=== PATIENT | female | born 1955 | race Caucasian/White ===

== ENCOUNTER 2023-11-25 15:21 | Inpatient (IN) | payer OTHER ==
[~2023-11-25] VITALS: Ht 167.6 cm; Wt 90.5 kg
[2023-11-25 16:14] LABS: Basophils # (auto) 0 10 ^3/uL (0-0.2); Basophils % (auto) 0.5 % (0.0-2.0); Eosinophils # (auto) 0.1 10 ^3/uL (0-0.8); Eosinophils % (auto) 0.9 % (0.0-7.0); Hematocrit 41.3 % (36.0-46.0); Lymphocytes # (auto) 1.6 10 ^3/uL (0.4-5.4); Lymphocytes % (auto) 20.9 % (10.0-50.0); Mean Corpuscular Volume 91.3 fL (80.0-100.0); Monocytes # (auto) 0.7 10 ^3/uL (0-1.3); Monocytes % (auto) 8.9 % (0.0-12.0); Neutrophils # (auto) 5.4 10 ^3/uL (1.6-8.6); Neutrophils % (auto) 68.8 % (37.0-80.0); Nucleated Red Blood Cells % 0.1 %; Red Blood Cells 4.53 10^6/uL (4.0-5.20); Red Cell Distribution Width 15.6 % (11.8-14.3); White Blood Cell 7.8 10^3/uL (4.4-10.8)
[2023-11-25] MEDS: HYDROcodone-ACET 5/325MG TAB PO ONE (16:25)
[2023-11-25 16:31] LABS: Alanine Aminotransferase 16 U/L (7-40); Albumin 4.2 g/dL (3.2-4.8); Alkaline Phosphatase 76 U/L (46-116); Anion Gap 8 (5-15); Aspartate Aminotransferase 20 U/L (13-40); BUN/Creatinine Ratio 23.7 (10.0-20.0); Blood Urea Nitrogen 27 mg/dL (9-23); Calcium 9.6 mg/dL (8.7-10.4); Carbon Dioxide 21 mmol/L (20-30); Chloride 113 mmol/L (98-107); Glucose 111 mg/dL (74-106); Lipase 44 U/L (12-53); Potassium 4.2 mmol/L (3.5-5.1); Sodium 142 mmol/L (136-145)
[2023-11-25 16:32] LABS: Bilirubin, Total 0.7 mg/dL (0.2-1.0); Total Protein 6.6 g/dL (5.7-8.2)
[2023-11-25 21:14] LABS: Urine Bacteria FEW /hpf (None Seen); Urine Blood TRACE /uL (Negative); Urine Clarity Turbid (Clear); Urine Color Yellow (Yellow); Urine Hyaline Cast MOD /lpf (0 - 2); Urine Mucus FEW (None Seen); Urine Protein, UAD TRACE (Negative); Urine Specific Gravity 1.025 (1.001-1.035); Urine Urobilinogen Normal (Negative); Urine WBC 150 /hpf (0 - 5)
[2023-11-25] MEDS ORDERED: DOCUSATE SOD 100 MG CAP PO PRN (22:15)
[2023-11-25] MEDS ORDERED: MORPHINE SULFATE INJ 2 MG/ml SYRG IV PRN ×2 (22:15→23:30)
[2023-11-25] MEDS ORDERED: ACETAMINOPHEN 325 MG TAB PO PRN (22:15)
[2023-11-25] MEDS ORDERED: ONDANSETRON HCL 4 MG/2 ML VIAL IV PRN (22:15)
[2023-11-25] MEDS: SULFAMETHOX W/TRIMETH(800/160MG) DS TAB PO ONE (22:31)
[2023-11-25] MEDS ORDERED: NITROGLYCERIN 0.4 MG SL TAB SL PRN (23:30)
[2023-11-25] MEDS: SOD CHL 0.45% 1,000 ML IV SCH (23:54)
[2023-11-26] VITALS (12 sets, daily range): BP systolic 125–156; BP diastolic 32–53; PULSE 38–89; RESP 16–20; TEMP 97.3–98.9; O2SAT 95–99
[2023-11-26] MEDS: HYDROcodone-ACET 5/325MG TAB PO PRN (02:55)
[2023-11-26 07:55] LABS: Basophils # (auto) 0 10 ^3/uL (0-0.2); Basophils % (auto) 0.2 % (0.0-2.0); Eosinophils # (auto) 0.1 10 ^3/uL (0-0.8); Eosinophils % (auto) 1.8 % (0.0-7.0); Hemoglobin 13.5 g/dL (12.2-16.2); Lymphocytes # (auto) 1.7 10 ^3/uL (0.4-5.4); Mean Corpuscular Hemoglobin 31.8 pg (28.0-32.0); Mean Corpuscular Hgb Conc. 34.7 g/dL (32.0-36.0); Mean Corpuscular Volume 91.6 fL (80.0-100.0); Monocytes # (auto) 0.9 10 ^3/uL (0-1.3); Monocytes % (auto) 13.7 % (0.0-12.0); Neutrophils # (auto) 3.6 10 ^3/uL (1.6-8.6); Neutrophils % (auto) 57.3 % (37.0-80.0); Nucleated Red Blood Cells % 0.1 %; Red Blood Cells 4.25 10^6/uL (4.0-5.20); Red Cell Distribution Width 15.1 % (11.8-14.3); White Blood Cell 6.2 10^3/uL (4.4-10.8)
[2023-11-26 08:13] LABS: Alanine Aminotransferase 13 U/L (7-40); Albumin 3.9 g/dL (3.2-4.8); Alkaline Phosphatase 65 U/L (46-116); Anion Gap 11 (5-15); Aspartate Aminotransferase 19 U/L (13-40); BUN/Creatinine Ratio 30.9 (10.0-20.0); Bilirubin, Total 0.4 mg/dL (0.2-1.0); Blood Urea Nitrogen 29 mg/dL (9-23); Calcium 9.2 mg/dL (8.7-10.4); Carbon Dioxide 19 mmol/L (20-30); Chloride 112 mmol/L (98-107); Glucose 95 mg/dL (74-106); Potassium 3.9 mmol/L (3.5-5.1); Sodium 142 mmol/L (136-145); Total Protein 5.7 g/dL (5.7-8.2)
[2023-11-26] MEDS: cefTRIAXone 1GM/50ML D5W 50 ML IV SCH (09:07)
[2023-11-26] MEDS ORDERED: FELO10TA28 PO (13:19)
[2023-11-27] VITALS (8 sets, daily range): BP systolic 122–157; BP diastolic 36–64; PULSE 41–58; RESP 16–20; TEMP 97.4–98; O2SAT 96–98
[2023-11-27] MEDS: ENOXAPARIN SOD 40 MG/0.4 ML SYRINGE SC SCH (08:55)
[2023-11-27 11:57] LABS: Triglycerides 152 mg/dL (< 150)
[2023-11-27 11:58] LABS: LDL Cholesterol 29 mg/dL (< 100)
[2023-11-27 11:59] LABS: Cholesterol 82 mg/dL (< 200); HDL Cholesterol 31 mg/dL (40-59)
[2023-11-28] VITALS (7 sets, daily range): BP systolic 123–191; BP diastolic 45–55; PULSE 42–58; RESP 16–20; TEMP 36.3; O2SAT 95–98
[2023-11-28] MEDS ORDERED: CEPH500C PO (14:56)
== END 2023-11-28 17:19 | disposition home or self-care (01) | DRG 640 ==
LOC: EDBD 15:21 → ER 15:21 → OVERFLOW 23:30 → UNDOADMIN 23:30 → OVERFLOW 11-26 01:18 → TELE 11-26 01:34 → TELE-WESTW 11-26 02:22
PROVIDERS: ADMIT Nurse Practitioner Family; ATTEND Internal Medicine Geriatric Medicine
DX: E86.0 Dehydration (principal); N17.0 Acute kidney failure with tubular necrosis; N39.0 Urinary tract infection, site not specified; G80.9 Cerebral palsy, unspecified; M54.16 Radiculopathy, lumbar region; N18.9 Chronic kidney disease, unspecified; G89.29 Other chronic pain; J45.909 Unspecified asthma, uncomplicated; E66.9 Obesity, unspecified; I36.1 Nonrheumatic tricuspid (valve) insufficiency; E78.5 Hyperlipidemia, unspecified; Z82.49 Family history of ischemic heart disease and other diseases of the circulatory system; Z88.2 Allergy status to sulfonamides; Z79.899 Other long term (current) drug therapy; Z68.32 Body mass index [BMI] 32.0-32.9, adult
CPT/HCPCS: 36415; 80053; 80061; 81001; 83605; 83690; 83880; 84443; 84484; 85025; 87086; 93005; 93306; G0378

== ENCOUNTER 2024-01-19 14:24 | Emergency (ER) | payer OTHER ==
[~2024-01-19] VITALS: Ht 167.6 cm; Wt 89.4 kg
[~2024-01-19 14:24] MED LIST: CEPH500C PO; FELO10TA28 PO
[2024-01-19 17:06] LABS: Chloride 109 mmol/L (98-107); Potassium 3.8 mmol/L (3.5-5.1); Sodium 143 mmol/L (136-145)
[2024-01-19 17:07] LABS: Anion Gap 8 (5-15); Calcium 10.1 mg/dL (8.7-10.4); Carbon Dioxide 26 mmol/L (20-30)
[2024-01-19 17:09] LABS: Basophils # (auto) 0 10 ^3/uL (0-0.2); Basophils % (auto) 0.4 % (0.0-2.0); Eosinophils # (auto) 0 10 ^3/uL (0-0.8); Eosinophils % (auto) 0.5 % (0.0-7.0); Hematocrit 43.9 % (36.0-46.0); Lymphocytes # (auto) 1.2 10 ^3/uL (0.4-5.4); Lymphocytes % (auto) 16.5 % (10.0-50.0); Mean Corpuscular Hgb Conc. 34.1 g/dL (32.0-36.0); Mean Corpuscular Volume 94.1 fL (80.0-100.0); Monocytes # (auto) 0.6 10 ^3/uL (0-1.3); Monocytes % (auto) 7.9 % (0.0-12.0); Neutrophils # (auto) 5.5 10 ^3/uL (1.6-8.6); Neutrophils % (auto) 74.7 % (37.0-80.0); Nucleated Red Blood Cells % 0.2 %; Platelet Count (auto) 185 10^3/uL (140-450); Red Blood Cells 4.67 10^6/uL (4.0-5.20); Red Cell Distribution Width 15.6 % (11.8-14.3); White Blood Cell 7.3 10^3/uL (4.4-10.8)
[2024-01-19 17:12] LABS: BUN/Creatinine Ratio 13.3 (10.0-20.0); Blood Urea Nitrogen 16 mg/dL (9-23); Glucose 109 mg/dL (74-106)
[2024-01-19] MEDS ORDERED: CYCL-838 PO (17:17)
[2024-01-19 17:26] LABS: INR 1.06 (0.9-1.15); Prothrombin Time 11.2 sec (9.3-11.8)
[2024-01-19 17:51] VITALS: BP 146/69; PULSE 63; RESP 18; TEMP 97.7; O2SAT 97
[2024-01-19] MEDS: HYDROcodone-ACET 10/325MG TAB PO ONE (17:51)
== END 2024-01-19 17:54 | disposition home or self-care (01) ==
LOC: EDBD 14:24 → ER 14:24
DX: M54.42 Lumbago with sciatica, left side (principal); M54.41 Lumbago with sciatica, right side; I89.0 Lymphedema, not elsewhere classified; Z79.899 Other long term (current) drug therapy; Z88.2 Allergy status to sulfonamides
CPT/HCPCS: 36415; 71045; 80048; 83880; 85025; 85610; 93005; 93970

== ENCOUNTER 2024-02-12 12:02 | Emergency (ER) | payer OTHER ==
[~2024-02-12] VITALS: Ht 167.6 cm; Wt 88.0 kg
[~2024-02-12 12:02] MED LIST changes: +CYCL-838 PO
[2024-02-12] MEDS: HYDROcodone-ACET 10/325MG TAB PO ONE (13:07)
[2024-02-12 14:14] LABS: Urine Bacteria FEW /hpf (None Seen); Urine Blood TRACE /uL (Negative); Urine Clarity Clear (Clear); Urine Color Yellow (Yellow); Urine Hyaline Cast MANY /lpf (0 - 2); Urine Mucus FEW (None Seen); Urine Protein, UAD 1+ (Negative); Urine Specific Gravity 1.027 (1.001-1.035); Urine Urobilinogen Normal (Negative); Urine WBC 25 /hpf (0 - 5); Urine pH 5.5 (5.0-9.0)
[2024-02-12] MEDS ORDERED: HYDR-4902 PO (15:13)
[2024-02-12] MEDS ORDERED: CIPR-173 PO (15:13)
[2024-02-12 15:20] VITALS: BP 122/45; PULSE 56; RESP 18; TEMP 98.2; O2SAT 96
== END 2024-02-12 15:23 | disposition home or self-care (01) ==
LOC: EDBD 12:02 → ER 12:08
DX: M54.41 Lumbago with sciatica, right side (principal); M54.42 Lumbago with sciatica, left side; N39.0 Urinary tract infection, site not specified; I11.0 Hypertensive heart disease with heart failure; I50.9 Heart failure, unspecified; Z88.2 Allergy status to sulfonamides
CPT/HCPCS: 72131; 81001

== ENCOUNTER 2024-02-20 16:41 | Inpatient (IN) | payer OTHER ==
[~2024-02-20] VITALS: Ht 167.6 cm; Wt 87.0 kg
[~2024-02-20 16:41] MED LIST changes: +CIPR-173 PO; +HYDR-4902 PO
[2024-02-20 17:43] LABS: Basophils # (auto) 0 10 ^3/uL (0-0.2); Basophils % (auto) 0.5 % (0.0-2.0); Eosinophils # (auto) 0.1 10 ^3/uL (0-0.8); Eosinophils % (auto) 2.3 % (0.0-7.0); Hematocrit 41.2 % (36.0-46.0); Hemoglobin 13.9 g/dL (12.2-16.2); Lymphocytes # (auto) 1.9 10 ^3/uL (0.4-5.4); Lymphocytes % (auto) 32.3 % (10.0-50.0); Mean Corpuscular Hgb Conc. 33.7 g/dL (32.0-36.0); Monocytes # (auto) 0.9 10 ^3/uL (0-1.3); Monocytes % (auto) 14.6 % (0.0-12.0); Neutrophils % (auto) 50.3 % (37.0-80.0); Nucleated Red Blood Cells % 0.1 %; Platelet Count (auto) 164 10^3/uL (140-450); Red Blood Cells 4.34 10^6/uL (4.0-5.20); Red Cell Distribution Width 15.1 % (11.8-14.3)
[2024-02-20] MEDS: KETOROLAC TROMETH 30 MG/ML 1ML VIAL IV ONE (17:43)
[2024-02-20 17:50] LABS: Chloride 110 mmol/L (98-107); Potassium 4.6 mmol/L (3.5-5.1); Sodium 140 mmol/L (136-145)
[2024-02-20 17:51] LABS: Anion Gap 7 (5-15); Calcium 9.3 mg/dL (8.7-10.4); Carbon Dioxide 23 mmol/L (20-31)
[2024-02-20 17:56] LABS: BUN/Creatinine Ratio 23.1 (10.0-20.0); Blood Urea Nitrogen 21 mg/dL (9-23); Glucose 111 mg/dL (74-106)
[2024-02-20] MEDS: HYDROcodone-ACET 10/325MG TAB PO ONE (20:01)
[2024-02-20 21:00] VITALS: PULSE 56; RESP 13; O2SAT 93
[2024-02-20] MEDS: diphenhdrAMINE HCL 50 MG/1 ML VL IM ONE (21:33)
[2024-02-20] MEDS: HALOPERIDOL LACTATE 5 MG/ML INJ VIAL IM ONE (21:33)
[2024-02-20] MEDS ORDERED: ONDANSETRON HCL 4 MG/2 ML VIAL IV PRN (22:00)
[2024-02-20] MEDS ORDERED: ACETAMINOPHEN 325 MG TAB PO PRN (22:00)
[2024-02-20] MEDS ORDERED: KETOROLAC TROMETH 30 MG/ML 1ML VIAL IV PRN (22:00)
[2024-02-20] MEDS ORDERED: hydrALAZINE HCL 20 MG/ML VL IV PRN (22:00)
[2024-02-20 22:45] LABS: Albumin 3.7 g/dL (3.2-4.8); Bilirubin, Direct 0.1 mg/dL (<0.3); Bilirubin, Total 0.4 mg/dL (0.2-1.0)
[2024-02-20 22:57] LABS: INR 1.07 (0.9-1.15); Partial Thromboplastin Time 26.6 SEC (24.5-34.5); Prothrombin Time 11.3 sec (9.3-11.8)
[2024-02-21 01:35] LABS: Amphetamine Screen, Urine Neg (NEGATIVE); Barbiturate Scree,Urine Neg (NEGATIVE); Benzodiazephine Screen, Urine Neg (NEGATIVE); Cannabinoid Screen, Urine Neg (NEGATIVE); Cocaine Screen, Urine Neg (NEGATIVE); Opiate Scree,Urine Neg (NEGATIVE); Phencyclidine Screen, Urine Neg (NEGATIVE)
[2024-02-21 06:00] VITALS: BP 140/70; PULSE 55; RESP 18; TEMP 98.2; O2SAT 96
[2024-02-21 06:25] VITALS: PULSE 55; RESP 18; O2SAT 96
[2024-02-21] MEDS ORDERED: ATOR40TA52 PO (07:08)
[2024-02-21 08:00] VITALS: PULSE 57; RESP 17; O2SAT 93
[2024-02-21 14:14] VITALS: TEMP 36.8
[2024-02-21 14:22] VITALS: TEMP 36.8
== END 2024-02-21 16:00 | disposition home or self-care (01) | DRG 552 ==
LOC: ER 16:41 → EDBD 16:41 → OVERFLOW 21:59 → TELE-EAST 02-21 05:40
PROVIDERS: ADMIT Student in an Organized Health Care Education/Training Program; ATTEND Internal Medicine Geriatric Medicine
DX: M51.369 Other intervertebral disc degeneration, lumbar region without mention of lumbar back pain or lower extremity pain (principal); I50.32 Chronic diastolic (congestive) heart failure; F11.20 Opioid dependence, uncomplicated; E66.9 Obesity, unspecified; I11.0 Hypertensive heart disease with heart failure; I89.0 Lymphedema, not elsewhere classified; R00.1 Bradycardia, unspecified; Z88.2 Allergy status to sulfonamides; Z68.31 Body mass index [BMI] 31.0-31.9, adult
CPT/HCPCS: 36415; 71045; 72100; 80048; 80076; 80307; 80320; 83036; 84484; 85025; 85610; 85730; 87081; 93005; 96374; 99291; G0378; J1885

== ENCOUNTER 2024-02-28 16:26 | Inpatient (IN) | payer OTHER ==
[~2024-02-28] VITALS: Ht 167.6 cm; Wt 84.6 kg
[~2024-02-28 16:26] MED LIST changes: +ATOR40TA52 PO; -CEPH500C PO; -CIPR-173 PO; -HYDR-4902 PO
--- NOTE | 2024-02-28 17:05 | ED.PDOC ---
HPI (NEURO) HPI Comments 68y F who presents to the ED via EMS for chief complaint of generalized weakness. Pt states she was at [employer] shopping and states she felt his generalized weakness with associated dizziness and sat down to help with her symptoms and states she continued to have dizziness and called EMS to the scene. EMS arrived on scene and states pt vitals were checked and states they were stable and pt was brought to the ED. Pt in the ED, has noted bilateral lower extremity swelling and pt states she has history of chronic lymphedema. Pt otherwise denies chest pain, shortness of breath, headache, fever, cough, nausea, vomiting, or diarrhea. Pt otherwise is alert and oriented x 4 and able to answer all questions. Pt states she was at [facility] last Monday and states he was hospitalized for bradycardia. Pt denies any other symptoms at this time. Chief Complaint: Dizziness Time Seen by MD: 17:02 Primary Care Provider: LESVIA Nair Notes: Medications, Allergies Information Source: Patient, Emergency Med Personnel Mode of Arrival: EMS Brought in by: EMS Past Medical History PAST MEDICAL HISTORY: CHF, High Lipids, HTN Past Medical History (Other): chronic lymphedema Surgical History: Denies all surgeries DOCUMENT PROCESSING SPECIALIST History: No Pertinent DOCUMENT PROCESSING SPECIALIST History Family History Family History: Reviewed,noncontributory to illness, No family hx of Cancer, No family hx of DM, No family hx of Heart asya, No family hx of HTN, No family hx ofKidney asya, No family hx of Liver asya, No family hx of Lung asya, No family hx of Stroke Social History Smoker: Non-Smoker Alcohol: Denies ETOH Use Drugs: Denies Drug Use Lives In: Home Constitutional: reports: malaise, weakness; denies: chills, diaphoresis, fatigue, fever, sweats, others EENTM: denies: blurred vision, double vision, ear bleeding, ear discharge, ear drainage, ear pain, ear ringing, eye pain, eye redness, hearing loss, mouth pain, mouth swelling, nasal discharge, nose bleeding, nose congestion, nose pain, photophobia, tearing, throat pain, throat swelling, voice changes, others Respiratory: denies: cough, hemoptysis, orthopnea, SOB at rest, shortness of breath, SOB with excertion, stridor, wheezing, others Cardiovascular: denies: chest pain, dizzy spells, diaphoresis, Dyspnea on exertion, edema, irregular heart beat, left arm pain, lightheadedness, palpitations, PND, syncope, others Gastrointestinal: denies: abdomen distended, abdominal pain, blood streaked bowels, constipated, diarrhea, dysphagia, difficulty swallowing, hematemesis, melena, nausea, poor appetite, poor fluid intake, rectal bleeding, rectal pain, vomiting, others Genitourinary: denies: abnormal vagina bleeding, burning, dyspareunia, dysuria, flank pain, frequency, hematuria, incontinence, pain, , vagina discharge, urgency, others Neurological: reports: dizziness, weakness; denies: fainting, headache, left sided numbness, left sided weakness, numbness, paresthesia, pre-existing deficit, right sided numbness, right sided weakness, seizure, speech problems, tingling, tremors, others Musculoskeletal: denies: back pain, gout, joint pain, joint swelling, muscle pain, muscle stiffness, neck pain, others Integumetry: denies: bruises, change in color, change in hair/nails, dryness, laceration, lesions, lumps, rash, wounds, others Allergic/Immunocompromised: denies: Difficulty Healing, Frequent Infections, Hives, Itching, others Hematologic/Lymphatic: denies: anemia, blood clots, easy bleeding, easy bruising, swollen glands, others Endocrine: denies: excessive hunger, excessive sweating, excessive thirst, excessive urination, flushing, intolerance to cold, intolerance to heat, unexplained weight gain, unexplained weight loss, others Psychiatric: denies: anxiety, bipolar disorder, depression, hopeless, panic disorder, schizophrenia, sleepless, suicidal, others All Other Systems: Reviewed and Negative Physical Exam General Appearance: Moderate Distress HEENT: Normal ENT Inspection, Pharynx Normal, TMs Normal Neck: Full Range of Motion, Non-Tender, Normal, Normal Inspection Respiratory: Chest Non-Tender, Lungs Clear, No Accessory Muscle Use, No Respiratory Distress, Normal Breath Sounds Cardiovascular: No Edema, No JVD, No Murmur, No Gallop, Normal Peripheral Pulses, Regular Rate/Rhythm Breast Exam: Deferred Gastrointestinal: No Organomegaly, Non Tender, No Pulsatile Mass, Normal Bowel Sounds, Soft Genitalia: Deferred Pelvic: Deferred Rectal: Deferred Extremities: Pedal edema, Swelling (Data lower extremity) Musculoskeletal : Apperance: Normal Neurologic: Alert, industrial gas production operator II-XII nml as Tested, No Motor Deficits, Normal Affect, Normal Mood, No Sensory Deficits Cerebellar Function: NOT DONE Reflexes: NOT DONE Skin: Dry, Normal Color, Warm Peripheral Pulses: 3+ Radial (R), 3+ Radial (L) Lymphatic: No Adenopathy Was a procedure done? Was a procedure done?: No Differential Diagnosis (SZ) Seizure: Psychogenic Seizure, Closed Head Injury, CVA/TIA General Weakness: Anemia, Dehydration, Electrolyte imbalance, Encephalopathy, Hypoglycemia, Hypotension, Hypovolemia, Pulmonary embolus, TIA, Vertigo: central, Vertigo: peripheral, Vestibular neuronitis, Other (UTI, chronic lymphedema, CHF exacerbation) Headache: Closed Head Injury X-Ray, Labs, Meds, VS Vital Signs Date Time Temp Pulse Resp B/P (MAP) Pulse Ox O2 Delivery O2 Flow Rate FiO2 02/28/24 16:36 62 02/28/24 16:33 97.9 64 16 112/59 (76) 98 Patient alert. Bilateral lower extremity swelling. Vitals stable. Answering all questions. Was recently at this hospital. Reviewed her previous visit. Explained to the patient. Continue property assessment monitor. Time of 1ST Reevaluation: 17:35 Reevaluation 1ST: Unchanged Patient Education/Counseling: Diagnosis, Treatment Family Education/Counseling: No Family Present Departure 1 Departure Time of Disposition: 17:31 Impression: Primary Impression: Autonomic disorder Additional Impressions: Lymphedema [id number] kidney injury Qualified Codes: N17.9 - Acute kidney failure, unspecified; N18.9 - Chronic kidney disease, unspecified Disposition: ADMITTED INPATIENT Admit to: Med Surg Condition: Guarded Critical Care Note Critical Care Time?: Yes (35 min-critical care time only) Stability Stability form required: No Heart Score Heart Score: Heart Score Response (Comments) Value History Slightly Suspicious 0 EKG Normal 0 Age >65 2 Risk Factors >3 or Hx ASHD 2 Troponin Normal limit 0 Total 4 I personally scribed for SHAGGY DEVRIES MD ([email or web address]) on 02/28/24 at 17:05. Electronically submitted by Levy Leon ([email or web address]). SHAGGY DEVRIES MD Feb 28, 2024 17:05
[2024-02-28 17:42] VITALS: PULSE 58; RESP 12; O2SAT 99
[2024-02-28 18:16] LABS: Basophils # (auto) 0 10 ^3/uL (0-0.2); Basophils % (auto) 0.3 % (0.0-2.0); Eosinophils # (auto) 0.1 10 ^3/uL (0-0.8); Eosinophils % (auto) 1.1 % (0.0-7.0); Hematocrit 42.9 % (36.0-46.0); Hemoglobin 14.6 g/dL (12.2-16.2); Lymphocytes # (auto) 1.2 10 ^3/uL (0.4-5.4); Lymphocytes % (auto) 20.4 % (10.0-50.0); Mean Corpuscular Hemoglobin 32.2 pg (28.0-32.0); Mean Corpuscular Volume 94.9 fL (80.0-100.0); Monocytes # (auto) 0.7 10 ^3/uL (0-1.3); Neutrophils % (auto) 66.2 % (37.0-80.0); Nucleated Red Blood Cells % 0.3 %; Platelet Count (auto) 151 10^3/uL (140-450); Red Blood Cells 4.52 10^6/uL (4.0-5.20); Red Cell Distribution Width 14.3 % (11.8-14.3); White Blood Cell 6.1 10^3/uL (4.4-10.8)
[2024-02-28 18:22] LABS: Chloride 108 mmol/L (98-107); Potassium 4.1 mmol/L (3.5-5.1); Sodium 141 mmol/L (136-145)
[2024-02-28 18:23] LABS: Anion Gap 8 (5-15); Calcium 9.6 mg/dL (8.7-10.4); Carbon Dioxide 25 mmol/L (20-31)
[2024-02-28 18:28] LABS: BUN/Creatinine Ratio 25.3 (10.0-20.0); Blood Urea Nitrogen 23 mg/dL (9-23); Glucose 99 mg/dL (74-106)
--- NOTE | 2024-02-28 18:47 | ECG ---
[facility] Test Date: 2024-02-28 Test Time: 16:35:19 Pat Name: NASIR ROSARIO Department: ED Room: [facility] Gender: F [employer] Sp[employer]: [place] : 1955 Requested By: SHAGGY DEVRIES Order Number: [id number] Reading MD: Mayank Vidales Measurements Intervals [place] Rate: 62 P: 25 FL: 117 QRS: 31 QRSD: 92 T: 63 QT: 407 QTc: 414 Interpretive Statements Sinus rhythm Borderline short FL interval ST elevation, consider inferior injury Electronically Signed On 02-29-2024 13:16:53 PDT by Mayank Vidales Please click the below link to view image of tracing.
[2024-02-28 19:50] VITALS: PULSE 56; RESP 12; O2SAT 99
--- NOTE | 2024-02-28 21:02 | DVH ---
CLINICAL HISTORY: dizzy TECHNIQUE: Helical imaging carried out from skull base to vertex without intravenous contrast. This e xam was performed according to our departmental dose optimization program. Up-to-date CT equipment an d radiation dose reduction techniques are utilized as appropriate. WID: COMPARISON: None FINDINGS: The ventricles and subarachnoid spaces are normal in size and configuration for patient age. There i s no midline shift or mass effect. The felix white matter interfaces are maintained. The basal cistern s are patent. There is no evidence of acute intracranial hemorrhage or extra-axial fluid collection. The mastoid air cells are well-aerated. There is mild paranasal sinus mucosal thickening. IMPRESSION: 1. No acute intracranial abnormality. 2. Mild paranasal sinus mucosal thickening, likely inflammatory.
[2024-02-28] MEDS ORDERED: MORPHINE SULFATE INJ 2 MG/ml SYRG IV PRN (21:30)
[2024-02-28] MEDS ORDERED: ONDANSETRON HCL 4 MG/2 ML VIAL IV PRN (21:30)
[2024-02-28] MEDS ORDERED: NITROGLYCERIN 0.4 MG SL TAB SL PRN (21:30)
[2024-02-28] MEDS: SODIUM CHLOR 0.9% PF (SALINE LOCK) 10ML VIAL/SYR IV SCH (22:15)
[2024-02-28] MEDS: ENOXAPARIN SOD 40 MG/0.4 ML SYRINGE SC SCH (22:16)
[2024-02-29] MEDS ORDERED: CYCLOBENZAPRINE HCL 7.5 MG PO PRN (01:00)
--- NOTE | 2024-02-29 01:00 | DVHHPRES ---
History of Present Illness Resident Creating Document: MARTINEZ POLLARD RESIDENT History of Present Illness Queenie Cheng is a 68 years old female with a PMH of HTN, CHF, HLD, back pain with sciatica presented to the ED with the chief complaints of intermittent generalized weakness since 4 days prior to admission. Patient reported she has been having hard time in walking since 4 days and she does reported 1 episode of fever on Monday and dry cough x4 days. Patient reported mild dizziness and weakness more or left side in the noon on the day of admission which prompted her to visit ED. on my assessment patient denies nausea, vomiting, abdominal pain, chest pain, palpitations, diarrhea, constipation and other acute symptoms. Past Medical History HTN, back pain with sciatica, CHF, chronic lymphedema Past Surgical History Denies Family History Heart disease and a gallbladder cancer in mother, mi in father Past Social History Lives with . Denies smoking, alcohol and other drug abuse Review of Systems Constitutional: Yes: Weakness Eyes: No: Pain, Vision change, Conjunctivae inflammation, Eyelid inflammation, Other, Redness ENT: No: Ear pain, Ear discharge, Nose pain, Nose discharge, Nose congestion, Mouth pain, Mouth swelling, Throat pain, Throat swelling, Other Respiratory: Cough, Dry Cardiovascular: No: Chest Pain, Palpitations, Orthopnea, Paroxysmal Noc. Dyspnea, Edema, Lt Headedness, Other Gastrointestinal: No: Nausea, Vomiting, Abdominal Pain, Diarrhea, Constipation, Melena, Hematochezia, Other Genitourinary: No Dysuria, No Frequency, No Incontinence, No Hematuria, No Retention, No Other Musculoskeletal: No: other, neck pain, shoulder pain, arm pain, back pain, hand pain, leg pain, foot pain Skin: No: Rash, Lesions, Jaundice, Bruising, Other Neurological: Weakness (generalized) Allergies: Coded Allergies: Sulfa Antibiotics (Verified Allergy, Unknown, 11/25/23) Medications Current Medications Medications Dose Ordered Sig/Alfonso Route Start Time Stop Time Status Last Admin Dose Admin Sodium Chloride 10 ml Q8HR IV 02/28/24 22:00 02/28/24 22:15 10 ML Acetaminophen 325 mg Q4HP PRN PO 02/28/24 21:30 Ondansetron HCl 4 mg Q4HP PRN IV 02/28/24 21:30 Enoxaparin Sodium 40 mg DAILY SC 02/28/24 21:30 02/28/24 22:16 40 MG Nitroglycerin 0.4 mg Q5MINP PRN SL 02/28/24 21:30 Morphine Sulfate 2 mg Q30M PRN IV 02/28/24 21:30 Exam Vital Signs Vital Signs Date Time Temp Pulse Resp B/P (MAP) Pulse Ox O2 Delivery O2 Flow Rate FiO2 02/28/24 22:00 13 138/56 (83) 96 02/28/24 20:00 59 02/28/24 19:50 98.1 98.1 02/28/24 19:50 Room Air* 0 21 General Appearance: Alert, Oriented X3, Cooperative, No acute distress HEENT: Atraumatic, PERRLA, EOMI, Mucous membr. moist/pink Respiratory: Clear to auscultation, Normal air movement Cardiovascular: Regular rate, Normal S1, Normal S2, No murmurs Abdominal: Normal bowel sounds, Soft, No tenderness, No hepatospenomegaly Extremities: No clubbing, No cyanosis, Normal pulses, Other (Bilateral pitting edema and lymphedema) Skin: No rashes, No breakdown, No significant lesion Neuro: Normal gait, Normal speech, Normal tone, Sensation intact Psych/Mental Status: Mental status NL, Mood NL Labs/Xrays Labs Test 02/28/24 17:50 Range/Units White Blood Count 6.1 4.4-10.8 10^3/uL Red Blood Count 4.52 4.0-5.20 10^6/uL Hemoglobin 14.6 12.2-16.2 g/dL Hematocrit 42.9 36.0-46.0 % Mean Corpuscular Volume 94.9 80.0-100.0 fL Mean Corpuscular Hemoglobin 32.2 H 28.0-32.0 pg Mean Corpuscular Hemoglobin Concent 34.0 32.0-36.0 g/dL Red Cell Distribution Width 14.3 11.8-14.3 % Platelet Count 151 140-450 10^3/uL Mean Platelet Volume 11.2 H 6.9-10.8 fL Neutrophils (%) (Auto) 66.2 37.0-80.0 % Lymphocytes (%) (Auto) 20.4 10.0-50.0 % Monocytes (%) (Auto) 12.0 0.0-12.0 % Eosinophils (%) (Auto) 1.1 0.0-7.0 % Basophils (%) (Auto) 0.3 0.0-2.0 % Neutrophils # (Auto) 4.0 1.6-8.6 10 ^3/uL Lymphocytes # (Auto) 1.2 0.4-5.4 10 ^3/uL Monocytes # (Auto) 0.7 0-1.3 10 ^3/uL Eosinophils # (Auto) 0.1 0-0.8 10 ^3/uL Basophils # (Auto) 0 0-0.2 10 ^3/uL Nucleated Red Blood Cells 0.3 % Sodium Level 141 136-145 mmol/L Potassium Level 4.1 3.5-5.1 mmol/L Chloride Level 108 H 98-107 mmol/L Carbon Dioxide Level 25 20-31 mmol/L Anion Gap 8 5-15 Blood Urea Nitrogen 23 9-23 mg/dL Creatinine 0.91 0.550-1.02 mg/dL Glomerular Filtration Rate Calc 68 >90 mL/min BUN/Creatinine Ratio 25.3 H 10.0-20.0 Serum Glucose 99 74-106 mg/dL Calcium Level 9.6 8.7-10.4 mg/dL Troponin I High Sensitivity 7 </=34 ng/L B-Type Natriuretic Peptide 36.18 0-100 pg/mL Assessment/Plan Assessment/Plan # Generalized weakness ?TIA # Dizziness ? presyncope -head CT showed no acute intracranial abnormalities -ordered carotid Doppler -monitor for symptoms # Ruleout COVID 19 and Influenza -Ordered rapid test # chronic back pain with sciatic -continue home meds # CHF not in exacerbation -ordered echocardiogram # hyperlipidemia -continue Lipitor # hypertension -monitor blood pressure -continue home meds Lovenox for VTE ppx No GIB PPX Cardiac Diet for now Reconciled home meds Goals of care discussed with the patient for more than 27 minutes: Full code status Case management discussed with Dr. Brewer, patient and nurse Plan discussed with: Patient, Other (nurse) My Orders Orders - MARTINEZ POLLARD RESIDENT Procedure Category Date Status Time Admit ADMIT 02/28/24 Transmitted 21:22 Allergies REX 02/28/24 In Process 21:22 Code Status CODE 02/28/24 Transmitted 21:22 Sodium Chloride Lock PHA 02/28/24 In Process (Saline Lock Ns) 22:00 Acetaminophen Tablet PHA 02/28/24 In Process (Tylenol Tablet) 21:30 Ondansetron Hcl PHA 02/28/24 In Process (Zofran) 21:30 Complete Blood Count LAB 02/29/24 Logged 04:00 Comprehensive LAB 02/29/24 Logged Metabolic Panel 04:00 Cardiac DIET 02/29/24 Transmitted Diet-2gna,Lofat,Lochol Breakfast Echo 2d Mode Cardiac US 02/28/24 Logged DOP 21:22 Carotid Duplx W Color US 02/28/24 Taken DOP 21:22 Enoxaparin Sodium PHA 02/28/24 In Process (Lovenox) 21:30 Nitroglycerin PHA 02/28/24 In Process Sublingual (Ntrostat 21:30 Morphine Sulfate PHA 02/28/24 In Process Injection 21:30 Oxygen By Nasal RT 02/28/24 Transmitted Cannula 21:22 Stat Ekg For Chest REX 02/28/24 In Process Pain 21:22 Notify Of Changes REX 02/28/24 In Process From Base 21:22 Recreational Resort Manager For REX 02/28/24 In Process 24 Hours 21:22 Emergency Dysrhythmia [facility] 02/28/24 In Process Protocol 21:22 Rhythm Strips Once [facility] 02/28/24 In Process Every Shift 21:22 Drug Screen LAB 02/29/24 Logged 00:28 Thyroid Stimulating LAB 02/29/24 Logged Hormone 00:28 Urinalysis LAB 02/29/24 Logged 00:28 Vitamin B12 LAB 02/29/24 Logged 00:28 Covid19 Antigen Haritha LAB 02/29/24 Logged Rapid Influenza A&B LAB 02/29/24 Logged 00:30 Date of Service: Feb 28, 2024 Billing Provider: MORENITA BREWER MD Common Visit Codes: 92309-FBOLYLI INP/OBS CARE (HIGH) Secondary Visit Codes: 52800-LIXQJXGS CARE PLAN 30 MINUTES MARTINEZ POLLARD RESIDENT Feb 29, 2024 01:00 MORENITA BREWER MD Feb 29, 2024 15:35
--- NOTE | 2024-02-29 02:14 | DVH ---
US CAROTID DOPPLER CLINICAL INDICATION: Dizziness TECHNIQUE: Multiple grayscale, color Doppler and spectral Doppler ultrasound images were obtained thr oughout both carotid systems. COMPARISON: None FINDINGS: RIGHT: CCA PSV: 64 cm/s ECA PSV: 110 cm/s ICA PSV: 103 cm/s ICA EDV: 31 cm/s ICA/CCA Ratio: 1.6 Vertebral artery: Patent, antegrade flow. Grayscale images demonstrate no significant plaque or visible stenosis. Spectral analysis demonstrate s no hemodynamically significant CCA or ICA stenosis. LEFT: CCA PSV: 62 cm/s ECA PSV: 79 cm/s ICA PSV: 116 cm/s ICA EDV: 32 cm/s ICA/CCA Ratio: 1.9 Vertebral artery: Patent, antegrade flow. Grayscale images demonstrate no significant plaque or visible stenosis. Spectral analysis demonstrate s no hemodynamically significant CCA or ICA stenosis. Incidental mildly prominent reactive appearing right cervical lymph nodes IMPRESSION: No evidence of hemodynamically significant CCA or ICA stenosis.
[2024-02-29 03:01] LABS: COVID19 ANTIGEN SOFIA FIA NEGATIVE (NEGATIVE); Rapid Influenza A Negative (Negative); Rapid Influenza B Negative (Negative)
[2024-02-29 03:51] VITALS: BP 135/62; PULSE 57; RESP 16; RESP 20; TEMP 97.5; O2SAT 97
[2024-02-29] MEDS ORDERED: GAB100C PO (03:58)
[2024-02-29] MEDS ORDERED: OLME40TA76 PO (03:58)
[2024-02-29 07:07] LABS: Basophils # (auto) 0 10 ^3/uL (0-0.2); Basophils % (auto) 0.2 % (0.0-2.0); Eosinophils # (auto) 0.1 10 ^3/uL (0-0.8); Eosinophils % (auto) 1.2 % (0.0-7.0); Hematocrit 38.3 % (36.0-46.0); Hemoglobin 13.1 g/dL (12.2-16.2); Lymphocytes # (auto) 1.5 10 ^3/uL (0.4-5.4); Lymphocytes % (auto) 28.3 % (10.0-50.0); Mean Corpuscular Hemoglobin 32.3 pg (28.0-32.0); Mean Corpuscular Hgb Conc. 34.2 g/dL (32.0-36.0); Mean Corpuscular Volume 94.7 fL (80.0-100.0); Monocytes # (auto) 0.7 10 ^3/uL (0-1.3); Monocytes % (auto) 13.6 % (0.0-12.0); Neutrophils % (auto) 56.7 % (37.0-80.0); Nucleated Red Blood Cells % 0.1 %; Platelet Count (auto) 152 10^3/uL (140-450); Red Blood Cells 4.04 10^6/uL (4.0-5.20); Red Cell Distribution Width 14.3 % (11.8-14.3); White Blood Cell 5.3 10^3/uL (4.4-10.8)
[2024-02-29 07:31] LABS: Alanine Aminotransferase 41 U/L (7-40); Albumin 3.7 g/dL (3.2-4.8); Alkaline Phosphatase 90 U/L (46-116); Anion Gap 6 (5-15); Aspartate Aminotransferase 41 U/L (13-40); BUN/Creatinine Ratio 25.9 (10.0-20.0); Bilirubin, Total 0.4 mg/dL (0.2-1.0); Blood Urea Nitrogen 21 mg/dL (9-23); Calcium 8.8 mg/dL (8.7-10.4); Carbon Dioxide 25 mmol/L (20-31); Chloride 111 mmol/L (98-107); Glucose 112 mg/dL (74-106); Potassium 3.7 mmol/L (3.5-5.1); Sodium 142 mmol/L (136-145); Total Protein 5.8 g/dL (5.7-8.2)
[2024-02-29 09:00] VITALS: BP 108/57; PULSE 56; RESP 18; TEMP 97.4; O2SAT 97
[2024-02-29] MEDS: ATORVASTATIN 20 MG TAB PO SCH (11:03)
[2024-02-29] MEDS: amLODIPine BESYLATE 5 MG TAB PO SCH (11:04)
[2024-02-29 13:00] VITALS: BP 146/56; PULSE 55; RESP 18; TEMP 97.9; O2SAT 96
--- NOTE | 2024-02-29 13:25 | DVHSR ---
APPROVED REPORT EXAM: Two-dimensional and M-mode echocardiogram with Doppler and color Doppler. Blood Pressure: 135/62 mmHg INDICATION Peripheral Edema RISK FACTORS Height: 5'6", Weight: 175 DIMENSIONS LVDd4.2 (3.8-5.7cm)LA (2D)4.0 (1.9-4.0cm)Aortic Root2.9 (2.0-3.7cm) LVDs2.4 (2.5-4.0cm)LA (MM) (1.9-4.0cm)Aortic Cusp Exc0.5 (1.5-2.0cm) EF (%) 74.0 (55-70%)Rt. Atrium4.1 (1.9-4.0cm)Asc. Aorta2.9 cm IVSd1.2 (0.7-1.1cm)RV (D)3.3 (1.8-2.4cm) PWd1.0 (0.7-1.1cm) Mitral Valve MitralMitral Stenosis E wave0.76m/sMV Mean GR.mmHg A wave0.93m/sMV Peak GR.mmHg E/A ratio0.82D MVAcm2 DECEL [id number] 1/2 Timems Aortic Valve Aortic ValveAortic Stenosis V11.55m/Wang Mean GR.5mmHg V21.62m/Wang Peak GR.11mmHg LVOT Diameter1.8 (1.8-2.4cm)Doppler AVA2.43cm2 AI P 1/2 Gvgx835.69ms Pulmonic Valve V21.13m/s Tricuspid Valve TR Velocity1.95m/s [id number] Conclusion Normal left ventricular size and dimension. Normal left ventricular systolic function estimated ejec tion fraction 55%. There is a grade 1 diastolic dysfunction. Normal right ventricular size and dimension. Normal right ventricular systolic function. Normal biatrial size and dimension. The aortic valve is mildly thickened and sclerotic there is mild aortic valve regurgitation. Normal mitral valve structure and function. Normal tricuspid valve structure and function. Normal pulmonary valve structure and function. No pericardial effusion.
--- NOTE | 2024-02-29 14:34 | DVHPN2 ---
Subjective 68-year-old female who was admitted for generalized weakness She was at the grocery store and felt dizzy and weak with the no syncope She has chronic low back pain and heart failure and chronic lymphedema and hypertension Changes from previous H/P or p: Changes Eyes: No Pain, No Vision change, No Conjunctivae inflammation, No Eyelid inflammation, No Other, No Redness ENT: No Ear pain, No Ear discharge, No Nose pain, No Nose discharge, No Nose congestion, No Mouth pain, No Mouth swelling, No Throat pain, No Throat swelling, No Other Cardiovascular: No Chest Pain, No Palpitations, No Orthopnea, No Paroxysmal Noc. Dyspnea, No Edema, No Lt Headedness, No Other Respiratory: Cough, Dry Gastrointestinal: No Nausea, No Vomiting, No Abdominal Pain, No Diarrhea, No Constipation, No Melena, No Hematochezia, No Other Genitourinary: No Dysuria, No Frequency, No Incontinence, No Hematuria, No Retention, No Other Musculoskeletal: No other, No neck pain, No shoulder pain, No arm pain, No back pain, No hand pain, No leg pain, No foot pain Skin: No Rash, No Lesions, No Jaundice, No Bruising, No Other Objective Vitals Vital Signs Date Time Temp Pulse Resp B/P (MAP) Pulse Ox O2 Delivery O2 Flow Rate FiO2 02/29/24 13:00 97.9 55 18 146/56 (86) 96 97.9 02/29/24 08:10 Room Air* 0 21 Intake/Output Intake and Output 02/29/24 07:00 Intake Total 0 ml Output Total 0 ml Balance 0 ml Intake Oral 0 ml Output Urine Total 0 ml General Appearance: Alert, Oriented X3, Cooperative Lungs: Clear to auscultation, Normal air movement Cardiovascular: Regular rate, Normal S1, Normal S2 Extremities: No edema Medications Current Medications Medications Dose Ordered Sig/Alfonso Route Start Time Stop Time Status Last Admin Dose Admin Sodium Chloride 10 ml Q8HR IV 02/28/24 22:00 02/29/24 05:45 10 ML Acetaminophen 325 mg Q4HP PRN PO 02/28/24 21:30 Ondansetron HCl 4 mg Q4HP PRN IV 02/28/24 21:30 Enoxaparin Sodium 40 mg DAILY SC 02/28/24 21:30 02/29/24 11:05 40 MG Nitroglycerin 0.4 mg Q5MINP PRN SL 02/28/24 21:30 Morphine Sulfate 2 mg Q30M PRN IV 02/28/24 21:30 Atorvastatin Calcium 40 mg DAILY PO 02/29/24 10:00 02/29/24 11:03 40 MG Patient Own Medication 7.5 mg BID PRN PO 02/29/24 01:00 Amlodipine Besylate 10 mg DAILY PO 02/29/24 10:00 02/29/24 11:04 10 MG Laboratory Results Laboratory Tests 02/29/24 06:02 Chemistry Test 02/28/24 17:50 02/29/24 06:02 Calcium Level 9.6 mg/dL (8.7-10.4) 8.8 mg/dL (8.7-10.4) Albumin 3.7 g/dL (3.2-4.8) Total Protein 5.8 g/dL (5.7-8.2) Cardiac Markers Test 02/28/24 17:50 B-Type Natriuretic Peptide 36.18 pg/mL (0-100) LFT Test 02/29/24 06:02 Alanine Aminotransferase (ALT) 41 U/L (7-40) H Alkaline Phosphatase 90 U/L (46-116) Aspartate Amino Transferase (AST) 41 U/L (13-40) H Total Bilirubin 0.4 mg/dL (0.2-1.0) HgA1c, TSH Test 02/29/24 06:02 Thyroid Stimulating Hormone (TSH) 0.63 uIU/mL (0.55-4.78) Microbiology Microbiology Date/Time Source Procedure Growth Status 02/29/24 04:10 Nose MRSA Screen - Final Complete Assessment/Plan Assessment/Plan Generalized weakness Dizziness Chronic low back pain Hypertension History of CHF Chronic lymphedema dyslipidemia Plan Start physical therapy Resume home medications Discharge planning for tomorrow Plan discussed with: Patient My Orders Orders - RUSSELL CORONA MD Procedure Category Date Status Time Pt Request For Service PT 02/29/24 Transmitted 14:31 Date of Service: Feb 29, 2024 Billing Provider: RUSSELL CORONA MD Common Visit Codes: NOT BILLABLE RUSSELL CORONA MD Feb 29, 2024 14:34
[2024-02-29 17:03] VITALS: BP 120/64; PULSE 61; RESP 16; TEMP 97.9; O2SAT 95
[2024-02-29 21:00] VITALS: BP 138/59; PULSE 61; RESP 17; TEMP 97.9; O2SAT 96
[2024-03-01] VITALS (8 sets, daily range): BP systolic 135–150; BP diastolic 61–92; PULSE 51–74; RESP 14–18; TEMP 97.3–98.6; O2SAT 95–99
[2024-03-01] MEDS: ACETAMINOPHEN 325 MG TAB PO PRN (00:10)
[2024-03-01] MEDS: guaiFENesin-DM 100/10mg/5ml SYR PO PRN (10:37)
--- NOTE | 2024-03-01 10:51 | DVHDS2 ---
Discharge Summary Date of Admission Feb 28, 2024 at 21:22 Date of Discharge: Mar 01, 2024 Labs/Diagnostic Data: Laboratory Results Test 02/29/24 06:02 02/29/24 02:05 02/28/24 17:50 White Blood Count 5.3 10^3/uL (4.4-10.8) Red Blood Count 4.04 10^6/uL (4.0-5.20) Hemoglobin 13.1 g/dL (12.2-16.2) Hematocrit 38.3 % (36.0-46.0) Mean Corpuscular Volume 94.7 fL (80.0-100.0) Mean Corpuscular Hemoglobin 32.3 pg (28.0-32.0) Mean Corpuscular Hemoglobin Concent 34.2 g/dL (32.0-36.0) Red Cell Distribution Width 14.3 % (11.8-14.3) Platelet Count 152 10^3/uL (140-450) Mean Platelet Volume 11.7 fL (6.9-10.8) Neutrophils (%) (Auto) 56.7 % (37.0-80.0) Lymphocytes (%) (Auto) 28.3 % (10.0-50.0) Monocytes (%) (Auto) 13.6 % (0.0-12.0) Eosinophils (%) (Auto) 1.2 % (0.0-7.0) Basophils (%) (Auto) 0.2 % (0.0-2.0) Neutrophils # (Auto) 3.0 10 ^3/uL (1.6-8.6) Lymphocytes # (Auto) 1.5 10 ^3/uL (0.4-5.4) Monocytes # (Auto) 0.7 10 ^3/uL (0-1.3) Eosinophils # (Auto) 0.1 10 ^3/uL (0-0.8) Basophils # (Auto) 0 10 ^3/uL (0-0.2) Nucleated Red Blood Cells 0.1 % Sodium Level 142 mmol/L (136-145) Potassium Level 3.7 mmol/L (3.5-5.1) Chloride Level 111 mmol/L (98-107) Carbon Dioxide Level 25 mmol/L (20-31) Anion Gap 6 (5-15) Blood Urea Nitrogen 21 mg/dL (9-23) Creatinine 0.81 mg/dL (0.550-1.02) Glomerular Filtration Rate Calc 78 mL/min (>90) BUN/Creatinine Ratio 25.9 (10.0-20.0) Serum Glucose 112 mg/dL (74-106) Calcium Level 8.8 mg/dL (8.7-10.4) Total Bilirubin 0.4 mg/dL (0.2-1.0) Aspartate Amino Transferase (AST) 41 U/L (13-40) Alanine Aminotransferase (ALT) 41 U/L (7-40) Alkaline Phosphatase 90 U/L (46-116) Total Protein 5.8 g/dL (5.7-8.2) Albumin 3.7 g/dL (3.2-4.8) Vitamin B12 Level 233 pg/mL (211-911) Thyroid Stimulating Hormone (TSH) 0.63 uIU/mL (0.55-4.78) Influenza Type A Antigen Negative (Negative) Influenza Type B Antigen Negative (Negative) SARS-CoV-2 Antigen (Rapid) Negative (NEGATIVE) Troponin I High Sensitivity 7 ng/L (</=34) B-Type Natriuretic Peptide 36.18 pg/mL (0-100) Other Laboratory Tests 02/29/24 06:02 Brief Hx & Hospital Course: Final diagnoses: Generalized weakness Dizziness Chronic low back pain Hypertension History of CHF Chronic lymphedema dyslipidemia 68-year-old female was admitted from the emergency room due to generalized weakness and dizziness She has a history of chronic lymphedema and hypertension and heart failure Echocardiogram was done here showed ejection fraction 55% She was also complaining of low back pain, she has chronic low back pain She has dyslipidemia and hypertension The patient overall is asymptomatic now Vital signs are stable She has chronic lymphedema in her legs however she is able to ambulate on her own, at home she says she does not use a walker or a cane We are waiting for physical therapy to see the patient and once she is seen and if stable then she can be discharged home No new medications Resume the old home medications and follow up with her primary care physician 1- 2 weeks Order a front wheel walker and home health safety evaluation Condition at Discharge: Stable Final Diagnosis/Problems List Generalized weakness Dizziness Chronic low back pain Hypertension History of CHF Chronic lymphedema dyslipidemia Discharge Disposition: Home SNF Discharge Will this Physician continue t: No Discharge Instruct/Medications Diet: Cardiac 2g Na,low cholest Activity: No Restrictions, As Tolerated Follow Up/Referral: PCP as soon as possible Medications: Same home medications Discharge Statement: "Patient was advised to return to the ER or call 911 if any headaches, dizziness, shortness of breath, chest pain, abdominal pain, bleeding, fevers, or worsening of medical condition. Patient was counseled about treatment plan, medications, possible side effects, patientverbalized understanding. All questions were answered to the best of my ability. This discharge took greater then 30 minutes in planning, reviewing documentation, counseling the patient, and discussing with other team members." ASSESSMENT ASSESSMENT Assessment Generalized weakness Dizziness Chronic low back pain Hypertension History of CHF Chronic lymphedema dyslipidemia Date of Service: Mar 01, 2024 Billing Provider: RUSSELL CORONA MD Common Visit Codes: NOT BILLABLE RUSSELL CORONA MD Mar 01, 2024 10:51
[2024-03-02] VITALS (8 sets, daily range): BP systolic 122–165; BP diastolic 51–86; PULSE 51–68; RESP 16–18; TEMP 97.3–98.1; O2SAT 95–98
--- NOTE | 2024-03-02 12:45 | DVHPN2 ---
Subjective The patient was supposed to be discharged yesterday however her DME is were not arranged this she needs a walker at home Changes from previous H/P or p: Changes Eyes: No Pain, No Vision change, No Conjunctivae inflammation, No Eyelid inflammation, No Other, No Redness ENT: No Ear pain, No Ear discharge, No Nose pain, No Nose discharge, No Nose congestion, No Mouth pain, No Mouth swelling, No Throat pain, No Throat swelling, No Other Cardiovascular: No Chest Pain, No Palpitations, No Orthopnea, No Paroxysmal Noc. Dyspnea, No Edema, No Lt Headedness, No Other Respiratory: Cough, Dry Gastrointestinal: No Nausea, No Vomiting, No Abdominal Pain, No Diarrhea, No Constipation, No Melena, No Hematochezia, No Other Genitourinary: No Dysuria, No Frequency, No Incontinence, No Hematuria, No Retention, No Other Musculoskeletal: No other, No neck pain, No shoulder pain, No arm pain, No back pain, No hand pain, No leg pain, No foot pain Skin: No Rash, No Lesions, No Jaundice, No Bruising, No Other Objective Vitals Vital Signs Date Time Temp Pulse Resp B/P (MAP) Pulse Ox O2 Delivery O2 Flow Rate FiO2 03/02/24 10:38 55 128/52 (77) 03/02/24 09:00 97.5 16 98 97.5 03/02/24 08:00 Room Air* 0 21 Intake/Output Intake and Output 03/02/24 07:00 Intake Total 950 ml Balance 950 ml Intake Oral 950 ml # Voids 8 # Bowel Movements 1 General Appearance: Alert, Oriented X3, Cooperative Lungs: Clear to auscultation, Normal air movement Cardiovascular: Regular rate, Normal S1, Normal S2 Extremities: No edema Medications Current Medications Medications Dose Ordered Sig/Alfonso Route Start Time Stop Time Status Last Admin Dose Admin Sodium Chloride 10 ml Q8HR IV 02/28/24 22:00 03/02/24 05:31 10 ML Acetaminophen 325 mg Q4HP PRN PO 02/28/24 21:30 03/01/24 00:10 325 MG Ondansetron HCl 4 mg Q4HP PRN IV 02/28/24 21:30 Enoxaparin Sodium 40 mg DAILY SC 02/28/24 21:30 03/02/24 09:18 40 MG Nitroglycerin 0.4 mg Q5MINP PRN SL 10/23/24 21:30 Morphine Sulfate 2 mg Q30M PRN IV 02/28/24 21:30 Atorvastatin Calcium 40 mg DAILY PO 02/29/24 10:00 03/02/24 09:17 40 MG Patient Own Medication 7.5 mg BID PRN PO 02/29/24 01:00 Amlodipine Besylate 10 mg DAILY PO 02/29/24 10:00 03/02/24 09:17 10 MG Guaifenesin/ Dextromethorphan 10 ml Q6HP PRN PO 02/29/24 19:00 03/01/24 20:59 10 ML Laboratory Results Laboratory Tests 02/29/24 06:02 Microbiology Microbiology Date/Time Source Procedure Growth Status 02/29/24 04:10 Nose MRSA Screen - Final Complete Assessment/Plan Assessment/Plan Generalized weakness Dizziness Chronic low back pain Hypertension History of CHF Chronic lymphedema dyslipidemia Plan Start physical therapy Resume home medications Discharge planning for tomorrow 03/02/2024: Discharge the patient home once a walker and a bedside commode has been arranged Home health also was ordered Patient is stable otherwise Plan discussed with: Patient My Orders Orders - RUSSELL CORONA MD Procedure Category Date Status Time * Record Cutter CONS 03/01/24 Transmitted Consult 14:07 Date of Service: Mar 02, 2024 Billing Provider: RUSSELL CORONA MD Common Visit Codes: NOT BILLABLE RUSSELL CORONA MD Mar 02, 2024 12:45
[2024-03-03 05:00] VITALS: BP 121/52; PULSE 52; RESP 16; TEMP 98; O2SAT 97
[2024-03-03 08:33] VITALS: BP 149/80; PULSE 53; RESP 17; TEMP 98.4; O2SAT 100
[2024-03-03 13:00] VITALS: BP 142/60; PULSE 59; RESP 16; TEMP 98.4; O2SAT 97
[2024-03-03 16:56] VITALS: BP 132/54; PULSE 58; RESP 18; TEMP 97.7; O2SAT 97
--- NOTE | 2024-03-03 18:35 | DVHPN2 ---
Subjective Pending CME equipment for discharge Changes from previous H/P or p: No Changes Eyes: No Pain, No Vision change, No Conjunctivae inflammation, No Eyelid inflammation, No Other, No Redness ENT: No Ear pain, No Ear discharge, No Nose pain, No Nose discharge, No Nose congestion, No Mouth pain, No Mouth swelling, No Throat pain, No Throat swelling, No Other Cardiovascular: No Chest Pain, No Palpitations, No Orthopnea, No Paroxysmal Noc. Dyspnea, No Edema, No Lt Headedness, No Other Respiratory: Cough, Dry Gastrointestinal: No Nausea, No Vomiting, No Abdominal Pain, No Diarrhea, No Constipation, No Melena, No Hematochezia, No Other Genitourinary: No Dysuria, No Frequency, No Incontinence, No Hematuria, No Retention, No Other Musculoskeletal: No other, No neck pain, No shoulder pain, No arm pain, No back pain, No hand pain, No leg pain, No foot pain Skin: No Rash, No Lesions, No Jaundice, No Bruising, No Other Objective Vitals Vital Signs Date Time Temp Pulse Resp B/P (MAP) Pulse Ox O2 Delivery O2 Flow Rate FiO2 03/03/24 16:56 97.7 58 18 132/54 (80) 97 97.7 03/03/24 08:00 Room Air* 0 21 Intake/Output Intake and Output 03/03/24 05:00 Intake Total 1600 ml Output Total 1 ml Balance 1599 ml Intake Oral 1600 ml Urine/Stool Mix 1 ml # Voids 9 General Appearance: Alert, Oriented X3, Cooperative Lungs: Clear to auscultation, Normal air movement Cardiovascular: Regular rate, Normal S1, Normal S2 Extremities: No edema Medications Current Medications Medications Dose Ordered Sig/Alfonso Route Start Time Stop Time Status Last Admin Dose Admin Sodium Chloride 10 ml Q8HR IV 02/28/24 22:00 03/03/24 05:03 10 ML Acetaminophen 325 mg Q4HP PRN PO 02/28/24 21:30 03/03/24 03:50 325 MG Ondansetron HCl 4 mg Q4HP PRN IV 02/28/24 21:30 Enoxaparin Sodium 40 mg DAILY SC 02/28/24 21:30 03/03/24 09:26 40 MG Nitroglycerin 0.4 mg Q5MINP PRN SL 02/28/24 21:30 Morphine Sulfate 2 mg Q30M PRN IV 02/28/24 21:30 Atorvastatin Calcium 40 mg DAILY PO 02/29/24 10:00 03/03/24 09:26 40 MG Patient Own Medication 7.5 mg BID PRN PO 02/29/24 01:00 Amlodipine Besylate 10 mg DAILY PO 02/29/24 10:00 03/03/24 09:26 10 MG Guaifenesin/ Dextromethorphan 10 ml Q6HP PRN PO 02/29/24 19:00 03/01/24 20:59 10 ML Laboratory Results Laboratory Tests 02/29/24 06:02 Microbiology Microbiology Date/Time Source Procedure Growth Status 02/29/24 04:10 Nose MRSA Screen - Final Complete Assessment/Plan Assessment/Plan Generalized weakness Dizziness Chronic low back pain Hypertension History of CHF Chronic lymphedema dyslipidemia Plan Start physical therapy Resume home medications Discharge planning for tomorrow 03/02/2024: Discharge the patient home once a walker and a bedside commode has been arranged Home health also was ordered Patient is stable otherwise 03/03 pending home health and DME equipment for safe discharge Plan discussed with: Other (nurse) Date of Service: Mar 03, 2024 Billing Provider: EVERTON LOPEZ MD Common Visit Codes: [id number] INP/OBS CARE(HIGH) EVERTON LOPEZ MD Mar 03, 2024 18:35
[2024-03-03 20:05] VITALS: PULSE 58; RESP 98
[2024-03-03 20:55] VITALS: BP 130/40; PULSE 58; RESP 18; TEMP 98; O2SAT 98
[2024-03-04] VITALS (7 sets, daily range): BP systolic 126–169; BP diastolic 51–64; PULSE 51–60; RESP 15–18; TEMP 97.6–98.1; O2SAT 97–100
--- NOTE | 2024-03-04 09:20 | DVHDS2 ---
Discharge Summary Date of Admission Feb 28, 2024 at 21:22 Date of Discharge: Mar 04, 2024 Labs/Diagnostic Data: Laboratory Results Test 02/29/24 06:02 02/29/24 02:05 02/28/24 17:50 White Blood Count 5.3 10^3/uL (4.4-10.8) Red Blood Count 4.04 10^6/uL (4.0-5.20) Hemoglobin 13.1 g/dL (12.2-16.2) Hematocrit 38.3 % (36.0-46.0) Mean Corpuscular Volume 94.7 fL (80.0-100.0) Mean Corpuscular Hemoglobin 32.3 pg (28.0-32.0) Mean Corpuscular Hemoglobin Concent 34.2 g/dL (32.0-36.0) Red Cell Distribution Width 14.3 % (11.8-14.3) Platelet Count 152 10^3/uL (140-450) Mean Platelet Volume 11.7 fL (6.9-10.8) Neutrophils (%) (Auto) 56.7 % (37.0-80.0) Lymphocytes (%) (Auto) 28.3 % (10.0-50.0) Monocytes (%) (Auto) 13.6 % (0.0-12.0) Eosinophils (%) (Auto) 1.2 % (0.0-7.0) Basophils (%) (Auto) 0.2 % (0.0-2.0) Neutrophils # (Auto) 3.0 10 ^3/uL (1.6-8.6) Lymphocytes # (Auto) 1.5 10 ^3/uL (0.4-5.4) Monocytes # (Auto) 0.7 10 ^3/uL (0-1.3) Eosinophils # (Auto) 0.1 10 ^3/uL (0-0.8) Basophils # (Auto) 0 10 ^3/uL (0-0.2) Nucleated Red Blood Cells 0.1 % Sodium Level 142 mmol/L (136-145) Potassium Level 3.7 mmol/L (3.5-5.1) Chloride Level 111 mmol/L (98-107) Carbon Dioxide Level 25 mmol/L (20-31) Anion Gap 6 (5-15) Blood Urea Nitrogen 21 mg/dL (9-23) Creatinine 0.81 mg/dL (0.550-1.02) Glomerular Filtration Rate Calc 78 mL/min (>90) BUN/Creatinine Ratio 25.9 (10.0-20.0) Serum Glucose 112 mg/dL (74-106) Calcium Level 8.8 mg/dL (8.7-10.4) Total Bilirubin 0.4 mg/dL (0.2-1.0) Aspartate Amino Transferase (AST) 41 U/L (13-40) Alanine Aminotransferase (ALT) 41 U/L (7-40) Alkaline Phosphatase 90 U/L (46-116) Total Protein 5.8 g/dL (5.7-8.2) Albumin 3.7 g/dL (3.2-4.8) Vitamin B12 Level 233 pg/mL (211-911) Thyroid Stimulating Hormone (TSH) 0.63 uIU/mL (0.55-4.78) Influenza Type A Antigen Negative (Negative) Influenza Type B Antigen Negative (Negative) SARS-CoV-2 Antigen (Rapid) Negative (NEGATIVE) Troponin I High Sensitivity 7 ng/L (</=34) B-Type Natriuretic Peptide 36.18 pg/mL (0-100) Other Laboratory Tests 02/29/24 06:02 Brief Hx & Hospital Course: Final diagnoses: Generalized weakness Dizziness Chronic low back pain Hypertension History of CHF Chronic lymphedema dyslipidemia Patient is stable for discharge once her walker and bedside commode is arranged today Condition at Discharge: Stable Final Diagnosis/Problems List Generalized weakness Dizziness Chronic low back pain Hypertension History of CHF Chronic lymphedema dyslipidemia Discharge Disposition: Home SNF Discharge Will this Physician continue t: No Discharge Instruct/Medications Diet: Cardiac 2g Na,low cholest Activity: No Restrictions, As Tolerated Follow Up/Referral: PCP as soon as possible Medications: Same home medications Discharge Statement: "Patient was advised to return to the ER or call 911 if any headaches, dizziness, shortness of breath, chest pain, abdominal pain, bleeding, fevers, or worsening of medical condition. Patient was counseled about treatment plan, medications, possible side effects, patientverbalized understanding. All questions were answered to the best of my ability. This discharge took greater then 30 minutes in planning, reviewing documentation, counseling the patient, and discussing with other team members." ASSESSMENT ASSESSMENT Assessment Generalized weakness Dizziness Chronic low back pain Hypertension History of CHF Chronic lymphedema dyslipidemia Date of Service: Mar 04, 2024 Billing Provider: RUSSELL CORONA MD Common Visit Codes: NOT BILLABLE RUSSELL CORONA MD Mar 04, 2024 09:20
[2024-03-05 04:15] VITALS: BP 132/44; PULSE 52; RESP 18; TEMP 97.7; O2SAT 98
[2024-03-05 08:00] VITALS: PULSE 58; RESP 18; O2SAT 96
--- NOTE | 2024-03-05 08:33 | DVHPN2 ---
Subjective Asymptomatic Waiting for DME Changes from previous H/P or p: Changes Eyes: No Pain, No Vision change, No Conjunctivae inflammation, No Eyelid inflammation, No Other, No Redness ENT: No Ear pain, No Ear discharge, No Nose pain, No Nose discharge, No Nose congestion, No Mouth pain, No Mouth swelling, No Throat pain, No Throat swelling, No Other Cardiovascular: No Chest Pain, No Palpitations, No Orthopnea, No Paroxysmal Noc. Dyspnea, No Edema, No Lt Headedness, No Other Respiratory: Cough, Dry Gastrointestinal: No Nausea, No Vomiting, No Abdominal Pain, No Diarrhea, No Constipation, No Melena, No Hematochezia, No Other Genitourinary: No Dysuria, No Frequency, No Incontinence, No Hematuria, No Retention, No Other Musculoskeletal: No other, No neck pain, No shoulder pain, No arm pain, No back pain, No hand pain, No leg pain, No foot pain Skin: No Rash, No Lesions, No Jaundice, No Bruising, No Other Objective Vitals Vital Signs Date Time Temp Pulse Resp B/P (MAP) Pulse Ox O2 Delivery O2 Flow Rate FiO2 03/05/24 04:15 97.7 52 18 132/44 (73) 98 97.7 03/04/24 20:00 Room Air* 0 21 Intake/Output Intake and Output 03/05/24 07:00 Intake Total 740 ml Balance 740 ml Intake Oral 740 ml # Voids 8 # Bowel Movements 3 General Appearance: Alert, Oriented X3, Cooperative Lungs: Clear to auscultation, Normal air movement Cardiovascular: Regular rate, Normal S1, Normal S2 Extremities: No edema Medications Current Medications Medications Dose Ordered Sig/Alfonso Route Start Time Stop Time Status Last Admin Dose Admin Acetaminophen 325 mg Q4HP PRN PO 02/28/24 21:30 03/05/24 02:14 325 MG Ondansetron HCl 4 mg Q4HP PRN IV 02/28/24 21:30 Enoxaparin Sodium 40 mg DAILY SC 02/28/24 21:30 03/04/24 08:52 40 MG Nitroglycerin 0.4 mg Q5MINP PRN SL 02/28/24 21:30 Morphine Sulfate 2 mg Q30M PRN IV 02/28/24 21:30 Atorvastatin Calcium 40 mg DAILY PO 02/29/24 10:00 03/04/24 08:52 40 MG Patient Own Medication 7.5 mg BID PRN PO 02/29/24 01:00 Amlodipine Besylate 10 mg DAILY PO 02/29/24 10:00 03/04/24 08:52 10 MG Guaifenesin/ Dextromethorphan 10 ml Q6HP PRN PO 02/29/24 19:00 03/01/24 20:59 10 ML Laboratory Results Laboratory Tests 02/29/24 06:02 Microbiology Microbiology Date/Time Source Procedure Growth Status 02/29/24 04:10 Nose MRSA Screen - Final Complete Assessment/Plan Assessment/Plan Generalized weakness Dizziness Chronic low back pain Hypertension History of CHF Chronic lymphedema dyslipidemia Plan Start physical therapy Resume home medications Discharge planning for tomorrow 03/02/2024: Discharge the patient home once a walker and a bedside commode has been arranged Home health also was ordered Patient is stable otherwise 03/05/24: DC home once walker and bedside commode are arranged Plan discussed with: Patient My Orders Orders - RUSSELL CORONA MD Procedure Category Date Status Time Discharge DISCHARGE 03/04/24 Transmitted 09:19 Date of Service: Mar 05, 2024 Billing Provider: RUSSELL CORONA MD Common Visit Codes: NOT BILLABLE RUSSELL CORONA MD Mar 05, 2024 08:33
[2024-03-05 08:42] VITALS: BP 155/70; PULSE 58; RESP 18; TEMP 97.5; O2SAT 96
[2024-03-05 13:00] VITALS: BP 133/71; PULSE 54; RESP 18; TEMP 97.7; O2SAT 98
[2024-03-05 17:00] VITALS: BP 136/75; PULSE 78; RESP 19; TEMP 97.4; O2SAT 96
== END 2024-03-05 18:55 | disposition home health service (06) | DRG 74 ==
LOC: EDBD 16:26 → ER 16:26 → OVERFLOW 21:22 → WEST WING 02-29 03:50
PROVIDERS: ATTEND Internal Medicine Geriatric Medicine
DX: G90.9 Disorder of the autonomic nervous system, unspecified (principal); I13.0 Hypertensive heart and chronic kidney disease with heart failure and stage 1 through stage 4 chronic kidney disease, or unspecified chronic kidney disease; N17.9 Acute kidney failure, unspecified; I50.9 Heart failure, unspecified; Z20.822 Contact with and (suspected) exposure to COVID-19; N18.9 Chronic kidney disease, unspecified; R53.1 Weakness; G89.29 Other chronic pain; I89.0 Lymphedema, not elsewhere classified; E78.5 Hyperlipidemia, unspecified; Z79.899 Other long term (current) drug therapy; Z88.2 Allergy status to sulfonamides
CPT/HCPCS: 36415; 70450; 80048; 80053; 82607; 83880; 84443; 84484; 85025; 87081; 87426; 87804; 93005; 93306; 93886; 97110; 97116; 97163; 97530; 99291; G0378

== ENCOUNTER 2024-05-21 20:19 | Inpatient (IN) | payer OTHER ==
[~2024-05-21] VITALS: Ht 167.6 cm; Wt 84.5 kg
[~2024-05-21 20:19] MED LIST changes: -CYCL-838 PO; +GAB100C PO; +OLME40TA76 PO
--- NOTE | 2024-05-21 20:58 | ED.PDOC ---
History of Present Illness HPI Comments 68-year-old female brought in by EMS from home complaining of left lower extremity pain status post fall. EMS, patient lives alone, states she can walk a few steps with a walker, but is mostly wheelchair-bound due to chronic lower extremity edema and pain. Patient states she was in her wheelchair when she camejo ddenly found herself falling out, landed on her left side, injuring her left leg. Patient localizes the pain to the distal thigh down through the ankle. She denies any head injury, back pain, loss of consciousness or other injury. She states her lower extremities do not feel more swollen than normal. She states once she was on the floor, she was unable to get up, so crawled to call 911. She states she normally takes tramadol for chronic left lower extremity pain which is usually 5/10, but is now 10/10 after the fall. Of note, EMS advised me they plan to make a social work specialist report, as the patient does not appear to be able to to care for herself, and that her living situation does not appear to be clean or safe. Chief Complaint: Fall Injury Time Seen by MD: 20:38 Primary Care Provider: LESVIA Allergies: Coded Allergies: Sulfa Antibiotics (Verified Allergy, Unknown, 11/25/23) Home Meds Active Scripts Hydrocodone-Acetaminophen (Hydrocodone Bitartrate/AC 5-325 mg) 1 Tab Tab, 1 TAB PO Q6HP PRN, #15 TAB Prov:RUSSELL CORONA MD 05/22/24 Reported Medications Gabapentin (Gabapentin) 100 Mg Cap, 1 CAP PO TID 02/29/24 Olmesartan Medoxomil (Olmesartan Medoxomil) 40 Mg Tab, 1 TAB PO DAILY 02/29/24 Atorvastatin Calcium (ATORVASTATIN CALCIUM) 40 Mg Tab, 1 TAB PO DAILY, #30 TAB 5 Refills 02/21/24 Felodipine (Felodipine Er) 10 Mg Tab, 10 MG PO DAILY for 30 Days, MG 11/26/23 Mode of Arrival: EMS Past Medical History PAST MEDICAL HISTORY: AFIB, Asthma, CHF, High Lipids, HTN Past Medical History (Other): Cardiac valve disease, Lymphedema, chronic left lower extremity pain Surgical History: Denies all surgeries HAND COLLATOR History: No Pertinent HAND COLLATOR History Family History Family History: Reviewed,noncontributory to illness, No family hx of Cancer, No family hx of DM, No family hx of Heart asya, No family hx of HTN, No family hx ofKidney asya, No family hx of Liver asya, No family hx of Lung asya, No family hx of Stroke Social History Smoker: Non-Smoker Alcohol: Denies ETOH Use Drugs: Denies Drug Use Lives In: Home All Other Systems: Reviewed and Negative (Comprehensive systems review obtained and negative except for what is stated in the HPI.) Physical Exam General Appearance: Mild Distress HEENT: PERRL/EOMI, Other (Moist mucous membranes. No facial or scalp deformity or swelling noted.) Neck: Full Range of Motion, Non-Tender, Normal Inspection, Supple Respiratory: Chest Non-Tender, Decreased Breath Sounds, No Accessory Muscle Use, No Respiratory Distress Cardiovascular: No JVD, Regular Rate/Rhythm Breast Exam: Deferred Gastrointestinal: Non Tender, Soft Genitalia: Deferred Pelvic: Deferred Rectal: Deferred Extremities: Leg edema, Pedal edema, Swelling, Tender (Bilateral lower extremity 4+ pitting edema. Left lower extremity tenderness from the distal thigh down to the ankle. No deformity noted.) Neurologic: Alert (Oriented x4), Normal Affect, Normal Mood, Other (Moves all extremities. No gross focal deficit.) Cerebellar Function: NOT DONE Reflexes: NOT DONE Skin: Dry, Normal Color, Warm Lymphatic: NOT DONE Was a procedure done? Was a procedure done?: No EKG EKG : Comments Sinus rhythm, rate 63, normal NC and QRS intervals, QTC 450, normal axis, normal QRS, no ST/T changes. Differential Dx Considerations may include: Lower extremity contusion, sprain, strain, fracture, dislocation, neuropathy, among others X-Ray, Labs, Meds, VS Vital Signs Date Time Temp Pulse Resp B/P (MAP) Pulse Ox O2 Delivery O2 Flow Rate FiO2 05/21/24 22:31 97.5 66 18 185/84 (117) 98 97.5 05/21/24 20:40 97.6 62 18 154/66 (95) 97 05/21/24 20:32 63 Lab Test 05/21/24 22:05 05/21/24 20:51 Range/Units Troponin I High Sensitivity 19 14 </=34 ng/L White Blood Count 6.9 4.4-10.8 10^3/uL Red Blood Count 4.56 4.0-5.20 10^6/uL Hemoglobin 14.5 12.2-16.2 g/dL Hematocrit 43.5 36.0-46.0 % Mean Corpuscular Volume 95.3 80.0-100.0 fL Mean Corpuscular Hemoglobin 31.8 28.0-32.0 pg Mean Corpuscular Hemoglobin Concent 33.3 32.0-36.0 g/dL Red Cell Distribution Width 15.4 H 11.8-14.3 % Platelet Count 166 140-450 10^3/uL Mean Platelet Volume 12.6 H 6.9-10.8 fL Neutrophils (%) (Auto) 60.4 37.0-80.0 % Lymphocytes (%) (Auto) 24.5 10.0-50.0 % Monocytes (%) (Auto) 11.9 0.0-12.0 % Eosinophils (%) (Auto) 2.0 0.0-7.0 % Basophils (%) (Auto) 1.2 0.0-2.0 % Neutrophils # (Auto) 4.2 1.6-8.6 10 ^3/uL Lymphocytes # (Auto) 1.7 0.4-5.4 10 ^3/uL Monocytes # (Auto) 0.8 0-1.3 10 ^3/uL Eosinophils # (Auto) 0.1 0-0.8 10 ^3/uL Basophils # (Auto) 0.1 0-0.2 10 ^3/uL Nucleated Red Blood Cells 0.1 % Sodium Level 141 136-145 mmol/L Potassium Level 4.4 3.5-5.1 mmol/L Chloride Level 109 H 98-107 mmol/L Carbon Dioxide Level 25 20-31 mmol/L Anion Gap 7 5-15 Blood Urea Nitrogen 16 9-23 mg/dL Creatinine 0.64 0.550-1.02 mg/dL Glomerular Filtration Rate Calc 95 >90 mL/min BUN/Creatinine Ratio 25.0 H 10.0-20.0 Serum Glucose 120 H 74-106 mg/dL Calcium Level 9.7 8.7-10.4 mg/dL B-Type Natriuretic Peptide 113.33 0-100 pg/mL Current Medications Medications (Trade) Dose Ordered Sig/Alfonso Route Start Time Stop Time Status Last Admin Acetaminophen/ Hydrocodone Bitart ([place] 10/325MG Tab) 1 tab ONCE ONCE PO 05/21/24 20:45 05/21/24 20:48 DC 05/21/24 22:11 X-Ray, Labs, Meds, VS Comment 68-year-old female with a history of hypertension, AFib, CHF, dyslipidemia, asthma, cardiac valve disease and chronic lymphedema with chronic left lower extremity pain brought in by EMS after a fall from her wheelchair, complaining of worsening left lower extremity pain Vitals remarkable for BP 154/66 Exam remarkable for 4+ pitting bilateral lower extremity edema. Left lower extremity soft tissue tenderness from the distal thigh down to the ankle. No deformity. Rhythm strip independently interpreted by me: Sinus rhythm, rate 63, no ectopy. Chest x-ray one view independently interpreted by me: Cardiomegaly with pulmonary vascular prominence. No definite infiltrate or effusion. Normal mediastinal width. Grossly normal bony thorax. No free air or pneumothorax. Left femur, left knee, left tib-fib and left ankle x-rays: Preliminarily interpreted by me: Acute fracture or dislocation seen. CBC and basic metabolic panel unremarkable, BNP 113.33, 2 serial troponins negative Patient treated with the following in the ED: [place] 10/325 mg p.o. with minimal improvement of pain. Patient's blood pressure was elevated in the 180s systolic, so she received hydralazine 10 mg IV, plus morphine 4 mg IV and Zofran 4 mg IV. On re-evaluation, patient states pain is somewhat improved, however is still moderate to severe. Patient lives alone and is at risk for recurrent falls due to ongoing pain. Plan is to admit the patient for pain control, PT/OT evaluation and possible SNF placement. Time of 1ST Reevaluation: 21:44 Reevaluation 1ST: Unchanged Patient Education/Counseling: Diagnosis, Treatment, Need For Follow Up Family Education/Counseling: No Family Present Departure 1 Departure Time of Disposition: 21:44 Impression: Primary Impression: Fall Qualified Codes: W19.XXXA - Unspecified fall, initial encounter Additional Impression: Lower extremity pain, left Disposition: ADMITTED INPATIENT Admit to: Med Surg Condition: Fair e-Prescriptions Hydrocodone-Acetaminophen (Hydrocodone Bitartrate/AC 5-325 mg) 1 Tab Tab 1 TAB PO Q6HP PRN, #15 TAB Prov: RUSSELL CORONA MD 05/22/24 Critical Care Note Critical Care Time?: No Stability Stability form required: No Heart Score Heart Score: Heart Score Response (Comments) Value History N/A 0 EKG N/A 0 Age N/A 0 Risk Factors N/A 0 Troponin N/A 0 Total 0 JOSE VASQUEZ MD May 21, 2024 20:58
[2024-05-21 21:54] LABS: Basophils # (auto) 0.1 10 ^3/uL (0-0.2); Basophils % (auto) 1.2 % (0.0-2.0); Eosinophils # (auto) 0.1 10 ^3/uL (0-0.8); Hematocrit 43.5 % (36.0-46.0); Hemoglobin 14.5 g/dL (12.2-16.2); Lymphocytes # (auto) 1.7 10 ^3/uL (0.4-5.4); Lymphocytes % (auto) 24.5 % (10.0-50.0); Mean Corpuscular Hemoglobin 31.8 pg (28.0-32.0); Mean Corpuscular Hgb Conc. 33.3 g/dL (32.0-36.0); Mean Corpuscular Volume 95.3 fL (80.0-100.0); Monocytes # (auto) 0.8 10 ^3/uL (0-1.3); Monocytes % (auto) 11.9 % (0.0-12.0); Neutrophils # (auto) 4.2 10 ^3/uL (1.6-8.6); Neutrophils % (auto) 60.4 % (37.0-80.0); Nucleated Red Blood Cells % 0.1 %; Platelet Count (auto) 166 10^3/uL (140-450); Red Blood Cells 4.56 10^6/uL (4.0-5.20); Red Cell Distribution Width 15.4 % (11.8-14.3); White Blood Cell 6.9 10^3/uL (4.4-10.8)
[2024-05-21 21:59] LABS: Potassium 4.4 mmol/L (3.5-5.1); Sodium 141 mmol/L (136-145)
[2024-05-21 22:00] LABS: Anion Gap 7 (5-15); Calcium 9.7 mg/dL (8.7-10.4); Carbon Dioxide 25 mmol/L (20-31)
[2024-05-21 22:05] LABS: Blood Urea Nitrogen 16 mg/dL (9-23)
[2024-05-21 22:08] LABS: Chloride 109 mmol/L (98-107); Glucose 120 mg/dL (74-106)
[2024-05-21] MEDS: HYDROcodone-ACET 10/325MG TAB PO ONE (22:11)
--- NOTE | 2024-05-21 22:40 | DVH ---
EXAM: XY CHEST PORTABLE CLINICAL HISTORY: edema TECHNIQUE: Single AP view of the chest WID: COMPARISON: XY CHEST PORTABLE on DOS: 02/20/24, FINDINGS: Lines and tubes: There is a battery pack projecting over the left chest wall Chest: The heart size and pulmonary vasculature is within normal limits. No pleural effusion, pneumothorax, or consolidation. The osseous structures are grossly intact. IMPRESSION: No acute cardiopulmonary abnormality.
--- NOTE | 2024-05-21 22:41 | DVH ---
CLINICAL INDICATION: trauma TECHNIQUE: XY L FEMUR XRAY Comparison: None FINDINGS/IMPRESSION: : There is no evidence of acute fracture or dislocation in the visualized portions of the femur. Bony demineralization. Overlying soft tissues are intact.
[2024-05-21 22:42] VITALS: PULSE 66; RESP 18; O2SAT 98
[2024-05-21] MEDS: hydrALAZINE HCL 20 MG/ML VL IV ONE (22:45)
[2024-05-21] MEDS: ONDANSETRON HCL 4 MG/2 ML VIAL IV ONE (22:45)
--- NOTE | 2024-05-21 22:46 | DVH ---
CLINICAL INDICATION: trauma TECHNIQUE: XY L KNEE 3V XRAY Comparison: None FINDINGS/IMPRESSION: : 1. Bony demineralization. No acute fracture. 2. Moderate lateral and [id number] medial compartment joint space narrowing and tricompartment osteophyte formation compatible with osteoarthritis. 3. No definite knee joint effusion. 4. Mild subcutaneous stranding overlying the lateral left knee
--- NOTE | 2024-05-21 22:47 | DVH ---
CLINICAL INDICATION: trauma TECHNIQUE: XY L TIB FIB XRAY Comparison: None FINDINGS/IMPRESSION: : 1. Bony demineralization. No acute fracture. 2. Subcutaneous edema in the distal left lower extremity. 3. No radiopaque foreign body.
[2024-05-21] MEDS ORDERED: ONDANSETRON HCL 4 MG/2 ML VIAL IV PRN (23:15)
[2024-05-21] MEDS ORDERED: hydrALAZINE HCL 20 MG/ML VL IV PRN (23:15)
[2024-05-21] MEDS ORDERED: MORPHINE SULFATE INJ 2 MG/ml SYRG IV PRN (23:15)
[2024-05-21] MEDS ORDERED: HYDROcodone-ACET 7.5/325MG TAB PO PRN (23:15)
--- NOTE | 2024-05-22 00:06 | DVHHPRES ---
History of Present Illness Resident Creating Document: HUSSEIN REECE RESIDENT Reason for Visit: Left leg pain s/p fall History of Present Illness This is a 68-year-old female who was brought in by EMS with chief complain of left lower extremity pain status post fall. She has a past medical history relevant for atrial fibrillation, asthma, CHF with an ejection fraction of 55%, hyperlipidemia, hypertension, chronic bilateral leg lymphedema. Denies smoking, alcohol or drug abuse. Patient states that she lives alone, and she walks with a walker, however she is mostly wheelchair-bound does not due to chronic lymphedema. She states that today, she was in her bed and the two transition into her wheelchair however she fell and landed on her left side, hurting on his left lower leg. Patient stated that she started experiencing severe pain down to her knee and to the ankle. She also mentions that her swollen has been going up lately and that she just stopped taking felodipine. Patient is unable to bear weight on her limb. Cardiovascular: AFIB, CHF, HTN, hyperipidemia Smoke: No ALCOHOL: none Drugs: None Lives: Alone Review of Systems Constitutional: No: Fever, Chills, Sweats, Weakness, Malaise, Other Eyes: No: Pain, Vision change, Conjunctivae inflammation, Eyelid inflammation, Other, Redness ENT: No: Ear pain, Ear discharge, Nose pain, Nose discharge, Nose congestion, Mouth pain, Mouth swelling, Throat pain, Throat swelling, Other Respiratory: No: Cough, Dry, Shortness of breath, SOB with excertion, Wheezing, Hemoptysis, Pleuritic Pain, Sputum, Wheezing, Other Cardiovascular: No: Chest Pain, Palpitations, Orthopnea, Paroxysmal Noc. Dyspnea, Edema, Lt Headedness, Other Gastrointestinal: No: Nausea, Vomiting, Abdominal Pain, Diarrhea, Constipation, Melena, Hematochezia, Other Genitourinary: No Dysuria, No Frequency, No Incontinence, No Hematuria, No Retention, No Other Musculoskeletal: leg pain; No: other, neck pain, shoulder pain, arm pain, back pain, hand pain Skin: No: Rash, Lesions, Jaundice, Bruising, Other Neurological: No: Weakness, Numbness, Incoordination, Change in speech, Confusion, Seizures, Other Allergies: Coded Allergies: Sulfa Antibiotics (Verified Allergy, Unknown, 11/25/23) Medications Current Medications Medications Dose Ordered Sig/Alfonso Route Start Time Stop Time Status Last Admin Dose Admin Acetaminophen/ Hydrocodone Bitart 1 tab Q4HP PRN PO 05/21/24 23:15 Morphine Sulfate 1 mg Q4HP PRN IV 05/21/24 23:15 Ondansetron HCl 4 mg Q4HPRN PRN IV 05/21/24 23:15 Hydralazine HCl 10 mg Q6HP PRN IV 05/21/24 23:15 Losartan Potassium 100 mg DAILY PO 05/22/24 10:00 Amlodipine Besylate 10 mg DAILY PO 05/22/24 10:00 Exam Vital Signs Vital Signs Date Time Temp Pulse Resp B/P (MAP) Pulse Ox O2 Delivery O2 Flow Rate FiO2 05/21/24 22:42 66 18 98 Room Air* 0 21 05/21/24 22:31 97.5 185/84 (117) 97.5 General Appearance: Alert, Oriented X3, Cooperative, moderate distress HEENT: Atraumatic, PERRLA, EOMI, Mucous membr. moist/pink Respiratory: Clear to auscultation, Normal air movement Cardiovascular: Regular rate, Normal S1, Normal S2 Abdominal: Normal bowel sounds, Soft, No tenderness Extremities: No clubbing, No cyanosis, Normal pulses, Other (Bilateral leg swelling, both lower legs are dressed,, pitting edema plus one, redness and dry scaly skin on both, most prominent on right side. No drainage, no fluctuation.) Neuro: Normal speech, Strength at 5/5 X4 ext, Normal tone, Sensation intact, Cranial nerves 3-12 NL Psych/Mental Status: Mental status NL, Mood NL Labs/Xrays Labs Test 05/21/24 22:05 05/21/24 20:51 Range/Units Troponin I High Sensitivity 19 </=34 ng/L White Blood Count 6.9 4.4-10.8 10^3/uL Red Blood Count 4.56 4.0-5.20 10^6/uL Hemoglobin 14.5 12.2-16.2 g/dL Hematocrit 43.5 36.0-46.0 % Mean Corpuscular Volume 95.3 80.0-100.0 fL Mean Corpuscular Hemoglobin 31.8 28.0-32.0 pg Mean Corpuscular Hemoglobin Concent 33.3 32.0-36.0 g/dL Red Cell Distribution Width 15.4 H 11.8-14.3 % Platelet Count 166 140-450 10^3/uL Mean Platelet Volume 12.6 H 6.9-10.8 fL Neutrophils (%) (Auto) 60.4 37.0-80.0 % Lymphocytes (%) (Auto) 24.5 10.0-50.0 % Monocytes (%) (Auto) 11.9 0.0-12.0 % Eosinophils (%) (Auto) 2.0 0.0-7.0 % Basophils (%) (Auto) 1.2 0.0-2.0 % Neutrophils # (Auto) 4.2 1.6-8.6 10 ^3/uL Lymphocytes # (Auto) 1.7 0.4-5.4 10 ^3/uL Monocytes # (Auto) 0.8 0-1.3 10 ^3/uL Eosinophils # (Auto) 0.1 0-0.8 10 ^3/uL Basophils # (Auto) 0.1 0-0.2 10 ^3/uL Nucleated Red Blood Cells 0.1 % Sodium Level 141 136-145 mmol/L Potassium Level 4.4 3.5-5.1 mmol/L Chloride Level 109 H 98-107 mmol/L Carbon Dioxide Level 25 20-31 mmol/L Anion Gap 7 5-15 Blood Urea Nitrogen 16 9-23 mg/dL Creatinine 0.64 0.550-1.02 mg/dL Glomerular Filtration Rate Calc 95 >90 mL/min BUN/Creatinine Ratio 25.0 H 10.0-20.0 Serum Glucose 120 H 74-106 mg/dL Calcium Level 9.7 8.7-10.4 mg/dL B-Type Natriuretic Peptide 113.33 0-100 pg/mL Assessment/Plan Assessment/Plan # left leg pain status post mechanical fall. Rule out fracture or dislocation. # chronic bilateral leg lymphedema #bilateral lower leg cellulitis X-rays of limbs were unremarkable, no fracture or dislocation Pain management ESR and CRP pending Ordered CT of left lower leg Zosyn IV PT request # asthma, controlled # chronic diastolic CHF On room air # hyperlipidemia Resume Lipitor 40 mg p.o. q.d. # hypertensive urgency Hydralazine 10 mg IV Losartan 100 mg p.o. Continue to monitor # prediabetes #obesity Counseled on lifestyle modification Goals of care were discussed for 30 minutes. Full code Case was discussed with Dr. Brewer Plan discussed with: Patient My Orders Orders - HUSSEIN REECE RESIDENT Procedure Category Date Status Time Admit ADMIT 05/21/24 Transmitted 23:10 Notify Of Changes REX 05/21/24 In Process From [place] 23:10 Hydrocodone-Acet PHA 05/21/24 In Process 7.5/325mg Tab ([place] 23:15 Morphine Sulfate PHA 05/21/24 In Process Injection 23:15 Ondansetron Hcl PHA 05/21/24 In Process (Zofran) 23:15 Hydralazine Injection PHA 05/21/24 In Process (Apresoline Inject 23:15 Pt Request For Service PT 05/21/24 Logged 23:10 Losartan Tablet PHA 05/22/24 In Process (Cozaar Tablet) 10:00 Amlodipine Tablet PHA 05/22/24 In Process (Norvasc Tablet) 10:00 Gabapentin Capsule PHA 05/22/24 Transmitted (Neurontin Capsule) 06:00 C-Reactive Protein LAB 05/21/24 Transmitted 23:51 Erythrocyte LAB 05/21/24 Transmitted Sedimentation Rate 23:51 Drug Screen LAB 05/21/24 Transmitted 23:51 Date of Service: May 21, 2024 Billing Provider: MORENITA BREWER MD Common Visit Codes: [id number] INP/OBS CARE (HIGH) Secondary Visit Codes: 21253-[id number] CARE PLAN 30 MINUTES HUSSEIN REECE RESIDENT May 22, 2024 00:06 MORENITA BREWER MD May 22, 2024 08:23
[2024-05-22] MEDS ORDERED: hydrALAZINE HCL 20 MG/ML VL IV PRN (00:15)
[2024-05-22] MEDS: MORPHINE SULFATE INJ 2 MG/ml SYRG IV PRN (00:37)
[2024-05-22 00:45] LABS: Erythrocyte Sedimentation Rate 6 mm/hr (0-20)
[2024-05-22] MEDS: HYDROcodone-ACET 7.5/325MG TAB PO PRN (00:49)
[2024-05-22] MEDS: MORPHINE SULFATE 4 MG/ML SYR/VIAL IV ONE (01:21)
[2024-05-22] MEDS: MORPHINE SULFATE 4 MG/ML SYR/VIAL ONE (02:12)
--- NOTE | 2024-05-22 04:09 | ECG ---
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
--- NOTE | 2024-05-22 04:47 | DVH ---
CLINICAL INDICATION: 68 years old, Female; left lower leg pain out of proportion. TECHNIQUE: Noncontrast CT of the left lower extremity was performed. Sagittal and coronal reformatted images are provided. COMPARISON: None CT Dose: CTDI volume is 7.9 mGy. Dose-length product is 457.19 mGy*cm FINDINGS: No fracture or dislocation. No evidence of cortical destruction. There is tricompartment joint space narrowing and osteophyte formation. Ankle joint space maintained. Soft tissue swelling in the lower e xtremity from the knee to the foot. No fluid collection. IMPRESSION: 1. No fracture, dislocation or cortical destruction. 2. Soft tissue swelling from the left knee to foot, may reflect cellulitis. No fluid collection. 3. Knee osteoarthritis. All CT scans at this medical facility are performed using dose modulation techniques as appropriate t o a performed exam including the following: Automated exposure control was utilized; adjustment of th e MA and/or KV according to patient size; and use of iterative reconstruction technique.
[2024-05-22] MEDS: GABAPENTIN 100 MG CAP PO SCH (06:16)
[2024-05-22] MEDS: ONDANSETRON HCL 4 MG/2 ML VIAL IV PRN (06:17)
[2024-05-22] MEDS: PIPERACILLIN-TAZOB 3.375GM 100 ML IV SCH (06:18)
[2024-05-22 06:51] LABS: Basophils # (auto) 0 10 ^3/uL (0-0.2); Basophils % (auto) 0.4 % (0.0-2.0); Eosinophils # (auto) 0.1 10 ^3/uL (0-0.8); Eosinophils % (auto) 1.3 % (0.0-7.0); Hematocrit 40.2 % (36.0-46.0); Hemoglobin 13.4 g/dL (12.2-16.2); Lymphocytes # (auto) 1.5 10 ^3/uL (0.4-5.4); Lymphocytes % (auto) 23.1 % (10.0-50.0); Mean Corpuscular Hemoglobin 31.4 pg (28.0-32.0); Mean Corpuscular Hgb Conc. 33.3 g/dL (32.0-36.0); Mean Corpuscular Volume 94.2 fL (80.0-100.0); Monocytes # (auto) 0.9 10 ^3/uL (0-1.3); Monocytes % (auto) 13.1 % (0.0-12.0); Neutrophils # (auto) 4.2 10 ^3/uL (1.6-8.6); Neutrophils % (auto) 62.1 % (37.0-80.0); Platelet Count (auto) 149 10^3/uL (140-450); Red Blood Cells 4.26 10^6/uL (4.0-5.20); Red Cell Distribution Width 15.2 % (11.8-14.3); White Blood Cell 6.7 10^3/uL (4.4-10.8)
[2024-05-22 06:55] LABS: Potassium 4.4 mmol/L (3.5-5.1); Sodium 142 mmol/L (136-145)
[2024-05-22 06:56] LABS: Anion Gap 5 (5-15); Carbon Dioxide 27 mmol/L (20-31)
[2024-05-22 06:57] LABS: Calcium 9.6 mg/dL (8.7-10.4)
[2024-05-22 07:00] LABS: Chloride 110 mmol/L (98-107)
[2024-05-22 07:01] LABS: Glucose 94 mg/dL (74-106)
[2024-05-22 07:27] LABS: BUN/Creatinine Ratio 35.4 (10.0-20.0); Blood Urea Nitrogen 23 mg/dL (9-23)
[2024-05-22 07:30] VITALS: PULSE 62; RESP 12; O2SAT 98
[2024-05-22] MEDS ORDERED: FELODIPINE 10 MG PO SCH (10:00)
[2024-05-22] MEDS ORDERED: LOSARTAN POTASSIUM 50 MG TAB PO SCH (10:00)
[2024-05-22] MEDS ORDERED: amLODIPine BESYLATE 5 MG TAB PO SCH (10:00)
[2024-05-22] MEDS: LOSARTAN POTASSIUM 50 MG TAB PO SCH (10:21)
[2024-05-22] MEDS ORDERED: HYDR-4902 PO (10:58)
--- NOTE | 2024-05-22 11:05 | DVHDS2 ---
Discharge Summary Date of Admission May 21, 2024 at 23:10 Date of Discharge: May 22, 2024 Labs/Diagnostic Data: Laboratory Results Test 05/22/24 06:14 05/21/24 22:05 05/21/24 20:51 White Blood Count 6.7 10^3/uL (4.4-10.8) Red Blood Count 4.26 10^6/uL (4.0-5.20) Hemoglobin 13.4 g/dL (12.2-16.2) Hematocrit 40.2 % (36.0-46.0) Mean Corpuscular Volume 94.2 fL (80.0-100.0) Mean Corpuscular Hemoglobin 31.4 pg (28.0-32.0) Mean Corpuscular Hemoglobin Concent 33.3 g/dL (32.0-36.0) Red Cell Distribution Width 15.2 % (11.8-14.3) Platelet Count 149 10^3/uL (140-450) Mean Platelet Volume 11.9 fL (6.9-10.8) Neutrophils (%) (Auto) 62.1 % (37.0-80.0) Lymphocytes (%) (Auto) 23.1 % (10.0-50.0) Monocytes (%) (Auto) 13.1 % (0.0-12.0) Eosinophils (%) (Auto) 1.3 % (0.0-7.0) Basophils (%) (Auto) 0.4 % (0.0-2.0) Neutrophils # (Auto) 4.2 10 ^3/uL (1.6-8.6) Lymphocytes # (Auto) 1.5 10 ^3/uL (0.4-5.4) Monocytes # (Auto) 0.9 10 ^3/uL (0-1.3) Eosinophils # (Auto) 0.1 10 ^3/uL (0-0.8) Basophils # (Auto) 0 10 ^3/uL (0-0.2) Nucleated Red Blood Cells 0.0 % Sodium Level 142 mmol/L (136-145) Potassium Level 4.4 mmol/L (3.5-5.1) Chloride Level 110 mmol/L (98-107) Carbon Dioxide Level 27 mmol/L (20-31) Anion Gap 5 (5-15) Blood Urea Nitrogen 23 mg/dL (9-23) Creatinine 0.65 mg/dL (0.550-1.02) Glomerular Filtration Rate Calc 95 mL/min (>90) BUN/Creatinine Ratio 35.4 (10.0-20.0) Serum Glucose 94 mg/dL (74-106) Calcium Level 9.6 mg/dL (8.7-10.4) Troponin I High Sensitivity 19 ng/L (</=34) C-Reactive Protein High Sensitivity 0.26 mg/dL (<1.0) Erythrocyte Sedimentation Rate 6 mm/hr (0-20) B-Type Natriuretic Peptide 113.33 pg/mL (0-100) Other Laboratory Tests 05/22/24 06:14 Brief Hx & Hospital Course: Final diagnosis: Fall Leg trauma, no fraction B Chronic lymphedema AFIB, CHF, HTN, hyperipidemia She fell off her wheelchair, no fracture c/o pain in left leg She does not ambulate, she uses a wheelchair for mobility DC home on [place] prn Condition at Discharge: Stable Final Diagnosis/Problems List Fall Leg trauma, no fraction B Chronic lymphedema AFIB, CHF, HTN, hyperipidemia Discharge Disposition: Home SNF Discharge Will this Physician continue t: No Discharge Instruct/Medications Diet: Cardiac 2g Na,low cholest Activity: No Restrictions, As Tolerated Follow Up/Referral: PCP KAYLA Medications: [place] prn Discharge Statement: "Patient was advised to return to the ER or call 911 if any headaches, dizziness, shortness of breath, chest pain, abdominal pain, bleeding, fevers, or worsening of medical condition. Patient was counseled about treatment plan, medications, possible side effects, patientverbalized understanding. All questions were answered to the best of my ability. This discharge took greater then 30 minutes in planning, reviewing documentation, counseling the patient, and discussing with other team members." ASSESSMENT ASSESSMENT Assessment Fall Leg trauma, no fraction B Chronic lymphedema AFIB, CHF, HTN, hyperipidemia Date of Service: May 22, 2024 Billing Provider: RUSSELL CORONA MD Common Visit Codes: NOT BILLABLE RUSSELL CORONA MD May 22, 2024 11:05
[2024-05-22 12:00] VITALS: TEMP 97.7
[2024-05-22 18:00] VITALS: BP 105/57; PULSE 77; RESP 20; O2SAT 95
[2024-05-22] MEDS ORDERED: ATORVASTATIN 20 MG TAB PO SCH (22:00)
== END 2024-05-22 17:35 | disposition home health service (06) | DRG 914 ==
LOC: EDBD 20:19 → ER 20:19 → OVERFLOW 23:01 → ER 23:12 → OVERFLOW 23:12
PROVIDERS: ADMIT Family Medicine; ATTEND Family Medicine
DX: S89.82XA Other specified injuries of left lower leg, initial encounter (principal); I50.32 Chronic diastolic (congestive) heart failure; L03.116 Cellulitis of left lower limb; L03.115 Cellulitis of right lower limb; I16.0 Hypertensive urgency; I11.0 Hypertensive heart disease with heart failure; I48.91 Unspecified atrial fibrillation; J45.909 Unspecified asthma, uncomplicated; E78.5 Hyperlipidemia, unspecified; E66.9 Obesity, unspecified; I89.0 Lymphedema, not elsewhere classified; Z99.3 Dependence on wheelchair; Z68.30 Body mass index [BMI] 30.0-30.9, adult; W18.39XA Other fall on same level, initial encounter; Y93.89 Activity, other specified; Y92.89 Other specified places as the place of occurrence of the external cause; Y99.8 Other external cause status
CPT/HCPCS: 36415; 71045; 73562; 73590; 73700; 80048; 83880; 84484; 85025; 85652; 86141; 93005; G0378; J2405; J2543

== ENCOUNTER 2024-06-09 11:36 | Inpatient (IN) | payer OTHER ==
[~2024-06-09] VITALS: Ht 167.6 cm; Wt 84.6 kg
[~2024-06-09 11:36] MED LIST changes: +HYDR-4902 PO
--- NOTE | 2024-06-09 12:01 | ED.PDOC ---
History of Present Illness HPI Comments 68 y.o female with PMHx of AFIB, Asthma, CHF, High Lipids, HTN, Cardiac valve disease, Lymphedema, chronic left lower extremity pain with cellulitis, presents to the ED via EMS for an evaluation of high blood pressure. Patient reports PCP recently placed her on Hydrochlorothiazide 12.5mg once a day, states she has taken it twice including today and now " feels strange". Patient is unable to specify her symptoms, states she does not feel herself at this time or the first time when taking the medication. Patient also mentions her PCP taking her off a medication that was meant for her leg swelling but was unable to provide name of the medication. EMS reports patient has been hypertensive on scene and en route with blood pressure measuring 205/80. Patient denies any chest pain, SOB, fever, chills, nausea, vomiting. Patient denies changes to leg pain or erythema and has compression socks in place. Time Seen by MD: 11:41 Primary Care Provider: LESVIA Nair Notes: Nurses Notes, Contractor [employer] Notes, Medications, Allergies Allergies: Coded Allergies: Sulfa Antibiotics (Verified Allergy, Unknown, 11/25/23) Home Meds Active Scripts Hydrocodone-Acetaminophen (Hydrocodone Bitartrate/AC 5-325 mg) 1 Tab Tab, 1 TAB PO Q6HP PRN, #15 TAB Prov:RUSSELL CORONA MD 05/22/24 Reported Medications Gabapentin (Gabapentin) 100 Mg Cap, 1 CAP PO TID 02/29/24 Olmesartan Medoxomil (Olmesartan Medoxomil) 40 Mg Tab, 1 TAB PO DAILY 02/29/24 Atorvastatin Calcium (ATORVASTATIN CALCIUM) 40 Mg Tab, 1 TAB PO DAILY, #30 TAB 5 Refills 02/21/24 Felodipine (Felodipine Er) 10 Mg Tab, 10 MG PO DAILY for 30 Days, MG 11/26/23 Information Source: Patient, Emergency Med Personnel Mode of Arrival: EMS Severity: Moderate Timing: Hours Duration: Since onset Prehospital treatment: 12 Lead 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, [employer]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 Past Medical History PAST MEDICAL HISTORY: AFIB, Asthma, CHF, High Lipids, HTN Past Medical History (Other): Cardiac valve disease, Lymphedema, chronic left lower extremity pain Surgical History: Denies all surgeries SPLITTER HAND History: No Pertinent SPLITTER HAND History Family History Family History: Reviewed,noncontributory to illness, No family hx of Cancer, No family hx of DM, No family hx of Heart asya, No family hx of HTN, No family hx ofKidney asya, No family hx of Liver asya, No family hx of Lung asya, No family hx of Stroke Social History Smoker: Non-Smoker Alcohol: Denies ETOH Use Drugs: Denies Drug Use Lives In: Home Constitutional: reports: malaise; denies: chills, diaphoresis, fatigue, fever, sweats, weakness, others EENTM: denies: blurred vision, double vision, ear bleeding, ear discharge, ear drainage, ear pain, ear ringing, eye pain, eye redness, hearing loss, mouth pain, mouth swelling, nasal discharge, nose bleeding, nose congestion, nose pain, photophobia, tearing, throat pain, throat swelling, voice changes, others Respiratory: denies: cough, hemoptysis, orthopnea, SOB at rest, shortness of breath, SOB with excertion, stridor, wheezing, others Cardiovascular: denies: chest pain, dizzy spells, diaphoresis, Dyspnea on exertion, edema, irregular heart beat, left arm pain, lightheadedness, palpitations, PND, syncope, others Gastrointestinal: denies: abdomen distended, abdominal pain, blood streaked bowels, constipated, diarrhea, dysphagia, difficulty swallowing, hematemesis, melena, nausea, poor appetite, poor fluid intake, rectal bleeding, rectal pain, vomiting, others Genitourinary: denies: abnormal vagina bleeding, burning, dyspareunia, dysuria, flank pain, frequency, hematuria, incontinence, pain, , vagina discharge, urgency, others Neurological: denies: dizziness, fainting, headache, left sided numbness, left sided weakness, numbness, paresthesia, pre-existing deficit, right sided numbness, right sided weakness, seizure, speech problems, tingling, tremors, wea kness, others Musculoskeletal: denies: back pain, gout, joint pain, joint swelling, muscle pain, muscle stiffness, neck pain, others Integumetry: denies: bruises, change in color, change in hair/nails, dryness, l aceration, lesions, lumps, rash, wounds, others Allergic/Immunocompromised: denies: Difficulty Healing, Frequent Infections, Hives, Itching, others Hematologic/Lymphatic: denies: anemia, blood clots, easy bleeding, easy bruising, swollen glands, others Endocrine: denies: excessive hunger, excessive sweating, excessive thirst, excessive urination, flushing, intolerance to cold, intolerance to heat, unexplained weight gain, unexplained weight loss, others Psychiatric: denies: anxiety, bipolar disorder, depression, hopeless, panic disorder, schizophrenia, sleepless, suicidal, others All Other Systems: Reviewed and Negative Physical Exam General Appearance: No Apparent Distress, Normal HEENT: Normal ENT Inspection, Pharynx Normal, TMs Normal Neck: Full Range of Motion, Non-Tender, Normal, Normal Inspection Respiratory: Chest Non-Tender, Lungs Clear, No Accessory Muscle Use, No Respiratory Distress, Normal Breath Sounds Cardiovascular: No Edema, No JVD, No Murmur, No Gallop, Normal Peripheral Pulses, Regular Rate/Rhythm Breast Exam: Deferred Gastrointestinal: No Organomegaly, Non Tender, No Pulsatile Mass, Normal Bowel Sounds, Soft Genitalia: Deferred Pelvic: Deferred Rectal: Deferred Extremities: No calf tenderness, Normal capillary refill, Normal inspection, Normal range of motion, Non-tender, No pedal edema Musculoskeletal : Apperance: Normal Neurologic: Alert, executive recruiter II-XII nml as Tested, No Motor Deficits, Normal Affect, Normal Mood, No Sensory Deficits Cerebellar Function: Normal Reflexes: Normal Skin: Dry, Normal Color, Warm Lymphatic: No Adenopathy Was a procedure done? Was a procedure done?: No Differential Dx Considerations may include: Accelerated Hypertension, Medication reaction, hypertensive emergency, ACS X-Ray, Labs, Meds, VS Vital Signs Date Time Temp Pulse Resp B/P (MAP) Pulse Ox O2 Delivery O2 Flow Rate FiO2 06/09/24 18:59 63 241/87 06/09/24 18:44 98.7 63 16 241/87 (138) 97 98.7 06/09/24 14:15 60 16 98 Room Air 06/09/24 14:15 97.8 60 16 235/85 (135) 98 97.8 06/09/24 11:54 98.5 60 18 205/80 (121) 97 Lab Test 06/09/24 13:09 06/09/24 12:14 Range/Units Troponin I High Sensitivity 16 15 </=34 ng/L White Blood Count 6.7 4.4-10.8 10^3/uL Red Blood Count 4.75 4.0-5.20 10^6/uL Hemoglobin 14.9 12.2-16.2 g/dL Hematocrit 45.1 36.0-46.0 % Mean Corpuscular Volume 94.9 80.0-100.0 fL Mean Corpuscular Hemoglobin 31.4 28.0-32.0 pg Mean Corpuscular Hemoglobin Concent 33.1 32.0-36.0 g/dL Red Cell Distribution Width 14.3 11.8-14.3 % Platelet Count 174 140-450 10^3/uL Mean Platelet Volume 11.9 H 6.9-10.8 fL Neutrophils (%) (Auto) 61.0 37.0-80.0 % Lymphocytes (%) (Auto) 28.2 10.0-50.0 % Monocytes (%) (Auto) 9.4 0.0-12.0 % Eosinophils (%) (Auto) 1.1 0.0-7.0 % Basophils (%) (Auto) 0.3 0.0-2.0 % Neutrophils # (Auto) 4.1 1.6-8.6 10 ^3/uL Lymphocytes # (Auto) 1.9 0.4-5.4 10 ^3/uL Monocytes # (Auto) 0.6 0-1.3 10 ^3/uL Eosinophils # (Auto) 0.1 0-0.8 10 ^3/uL Basophils # (Auto) 0 0-0.2 10 ^3/uL Nucleated Red Blood Cells 0.0 % Platelet Estimate Adequate Large Platelets Few Sodium Level 142 136-145 mmol/L Potassium Level 3.4 L 3.5-5.1 mmol/L Chloride Level 107 98-107 mmol/L Carbon Dioxide Level 26 20-31 mmol/L Anion Gap 9 5-15 Blood Urea Nitrogen 15 9-23 mg/dL Creatinine 0.65 0.550-1.02 mg/dL Glomerular Filtration Rate Calc 95 >90 mL/min BUN/Creatinine Ratio 23.1 H 10.0-20.0 Serum Glucose 95 74-106 mg/dL Calcium Level 10.7 H 8.7-10.4 mg/dL B-Type Natriuretic Peptide 107.94 0-100 pg/mL Current Medications Medications (Trade) Dose Ordered Sig/Alfonso Route Start Time Stop Time Status Last Admin Potassium Chloride (Klor-Con Tablet) 20 meq ONCE ONCE PO 06/09/24 14:15 06/09/24 14:16 DC 06/09/24 15:40 Labetalol HCl (Labetalol HCl) 10 mg ONCE ONCE IV 06/09/24 18:45 06/09/24 18:46 DC 06/09/24 18:59 [place] [id number] Ph: [phone] DIAGNOSTIC IMAGING Diagnostic Imaging Report : [id number] Signed PATIENT: NASIR ROSARIO ACCT: [id number] UNIT: [id number] : 1955 LOC: ER ROOM / BED: / AGE / SEX: 68 / F ADM STATUS: REG ER SERVICE 1153 ORDERING PHYSICIAN: SUZI BRITT MD PROCEDURE(s): HWOCT - HEAD WITHOUT CONTRAST REASON: HTN ORDER NUMBER(s): [id number], ACCESSION NUMBER(s): [id number] EXAM: CT HEAD WITHOUT CONTRAST HISTORY: HTN COMPARISON: CT HEAD WITHOUT CONTRAST on DOS: 02/28/24 TECHNIQUE: Axial images were obtained and reformatted in coronal and sagittal planes. All CT scans at this medical facility are performed using dose modulation techniques as appropriate to a performed exam including the following: Automated exposure control was utilized; adjustment of the MA and/or KV according to patient size; and use of iterative reconstruction technique. CT Dose: CTDI volume is 52.38 mGy. Dose-length product is 927.31 mGy*cm FINDINGS: Supratentorial Region: No evidence for large acute territorial ischemia. No intracranial hemorrhage is noted. Posterior Fossa: No acute abnormality. Brainstem: Unremarkable. Sellar/Suprasellar Region: Unremarkable. Ventricles, Cisterns, Sulci: Age-appropriate. Orbits: Unremarkable. Paranasal Sinuses: Unremarkable. Mastoid Air Cells: Unremarkable. Vasculature: Intracranial arterial calcified plaque formation noted. Bones/Soft Tissues: No acute abnormality. Other: None. IMPRESSION: 1. No acute intracranial process. ATED BY: KAILA CHILDERS MD DICTATED DATE/TIME: 06/09/24 1252 SIGNED BY: KAILA CHILDERS MD SIGNED DATE/TIME: 06/09/24 1252 CC: X-Ray, Labs, Meds, VS Comment 68-year-old female with history of hypertension here today with complaints of "feeling strange" in the setting of having systolic blood pressures in the 200s. No head trauma. No recent illness. No focal numbness or weakness. Patient's presentation consistent for possible hypertensive emergency. Labetalol was ordered for the patient and she will be admitted for further evaluation and treatment. Time of 1ST Reevaluation: 12:01 Reevaluation 1ST: Unchanged Patient Education/Counseling: Diagnosis, Treatment, Prognosis Family Education/Counseling: No Family Present Departure 1 Departure Time of Disposition: 19:13 Impression: Primary Impression: Hypertensive emergency Disposition: 09 ADMITTED INPATIENT Admit to: [facility] Condition: Guarded Critical Care Note Critical Care Time?: Yes (30 min-critical care time only) Stability Stability form required: No I personally scribed for SUZI BRITT MD ([email or web address]) on 06/09/24 at 12:01. Electronically submitted by Aniyah Rodriguez ([facility]). I personally scribed for SUZI BRITT MD ([email or web address]) on 06/09/24 at 13:37. Electronically submitted by Aniyah Rodriguez ([facility]). SUZI BRITT MD Jun 09, 2024 12:01
[2024-06-09 12:34] LABS: Basophils # (auto) 0 10 ^3/uL (0-0.2); Basophils % (auto) 0.3 % (0.0-2.0); Eosinophils # (auto) 0.1 10 ^3/uL (0-0.8); Eosinophils % (auto) 1.1 % (0.0-7.0); Hematocrit 45.1 % (36.0-46.0); Hemoglobin 14.9 g/dL (12.2-16.2); Lymphocytes # (auto) 1.9 10 ^3/uL (0.4-5.4); Lymphocytes % (auto) 28.2 % (10.0-50.0); Mean Corpuscular Hemoglobin 31.4 pg (28.0-32.0); Mean Corpuscular Hgb Conc. 33.1 g/dL (32.0-36.0); Mean Corpuscular Volume 94.9 fL (80.0-100.0); Monocytes # (auto) 0.6 10 ^3/uL (0-1.3); Monocytes % (auto) 9.4 % (0.0-12.0); Neutrophils # (auto) 4.1 10 ^3/uL (1.6-8.6); Platelet Count (auto) 174 10^3/uL (140-450); Red Blood Cells 4.75 10^6/uL (4.0-5.20); Red Cell Distribution Width 14.3 % (11.8-14.3); White Blood Cell 6.7 10^3/uL (4.4-10.8)
[2024-06-09 12:47] LABS: Sodium 142 mmol/L (136-145)
[2024-06-09 12:48] LABS: Anion Gap 9 (5-15); Carbon Dioxide 26 mmol/L (20-31)
[2024-06-09 12:53] LABS: Glucose 95 mg/dL (74-106)
[2024-06-09 12:54] LABS: BUN/Creatinine Ratio 23.1 (10.0-20.0); Blood Urea Nitrogen 15 mg/dL (9-23)
--- NOTE | 2024-06-09 12:55 | DVH ---
EXAM: CT HEAD WITHOUT CONTRAST HISTORY: HTN COMPARISON: CT HEAD WITHOUT CONTRAST on DOS: 02/28/24 TECHNIQUE: Axial images were obtained and reformatted in coronal and sagittal planes. All CT scans at this medical facility are performed using dose modulation techniques as appropriate t o a performed exam including the following: Automated exposure control was utilized; adjustment of th e MA and/or KV according to patient size; and use of iterative reconstruction technique. CT Dose: CTDI volume is 52.38 mGy. Dose-length product is 927.31 mGy*cm FINDINGS: Supratentorial Region: No evidence for large acute territorial ischemia. No intracranial hemorrhage is noted. Posterior Fossa: No acute abnormality. Brainstem: Unremarkable. Sellar/Suprasellar Region: Unremarkable. Ventricles, Cisterns, Sulci: Age-appropriate. Orbits: Unremarkable. Paranasal Sinuses: Unremarkable. Mastoid Air Cells: Unremarkable. Vasculature: Intracranial arterial calcified plaque formation noted. Bones/Soft Tissues: No acute abnormality. Other: None. IMPRESSION: 1. No acute intracranial process.
[2024-06-09 12:56] LABS: Calcium 10.7 mg/dL (8.7-10.4); Chloride 107 mmol/L (98-107); Potassium 3.4 mmol/L (3.5-5.1)
[2024-06-09 13:24] LABS: Large Platelets FEW; Platelet Estimate Adequate
[2024-06-09] MEDS: POTASSIUM CHL 20 Meq TABLET PO ONE (15:40)
[2024-06-09] MEDS: LABETALOL HCL 20 MG/4 ML VL IV ONE (18:59)
[2024-06-09] MEDS ORDERED: ONDANSETRON HCL 4 MG/2 ML VIAL IV PRN (19:15)
[2024-06-09] MEDS ORDERED: NITROGLYCERIN 0.4 MG SL TAB SL PRN (19:15)
[2024-06-09] MEDS ORDERED: hydrALAZINE HCL 20 MG/ML VL IV PRN (19:15)
[2024-06-09] MEDS: MORPHINE SULFATE INJ 2 MG/ml SYRG IV PRN (20:04)
[2024-06-09] MEDS: ATORVASTATIN 20 MG TAB PO SCH (22:10)
[2024-06-09 22:25] VITALS: RESP 20; O2SAT 94
[2024-06-10] VITALS (8 sets, daily range): BP systolic 112–154; BP diastolic 46–89; PULSE 49–72; RESP 16–20; TEMP 97.5–98.4; O2SAT 95–98
[2024-06-10] MEDS ORDERED: ASPI-543 PO (02:36)
[2024-06-10] MEDS ORDERED: ROSU40TA47 (02:36)
[2024-06-10] MEDS ORDERED: FELO5TAB PO (02:36)
[2024-06-10] MEDS ORDERED: HYDR12.55 (02:36)
[2024-06-10] MEDS: ACETAMINOPHEN 325 MG TAB PO PRN (02:59)
--- NOTE | 2024-06-10 04:46 | DVHHP2 ---
History of Present Illness Reason for Visit: High blood pressure History of Present Illness 68-year-old female presents for evaluation of hypertension. Patient reports feeling dizzy for the past one day when she checks her blood pressure it was greater 190. On arrival patient's blood pressure is greater than 200. Denies headache or blurred vision. No chest pain or shortness for breath. No other acute complaints reported. Past Medical History CHF, asthma, AFib, dyslipidemia, hypertension, lymphedema Past Surgical History Denies Family History Noncontributory Smoke: No ALCOHOL: none Drugs: None Lives: with Family Review of Systems Review of Systems Review of systems are currently negative otherwise addressed in HPI. Allergies: Coded Allergies: Sulfa Antibiotics (Verified Allergy, Unknown, 11/25/23) Medications Current Medications Medications Dose Ordered Sig/Alfonso Route Start Time Stop Time Status Last Admin Dose Admin Patient Own Medication 10 mg DAILY PO 06/10/24 10:00 UNV Hydralazine HCl 10 mg Q6HP PRN IV 06/09/24 19:15 Atorvastatin Calcium 40 mg HS PO 06/09/24 22:00 06/09/24 22:10 40 MG Ondansetron HCl 4 mg Q4HP PRN IV 06/09/24 19:15 Acetaminophen 650 mg Q6HP PRN PO 06/09/24 19:15 06/10/24 02:59 650 MG Nitroglycerin 0.4 mg Q5MINP PRN SL 06/09/24 19:15 Morphine Sulfate 2 mg Q30M PRN IV 06/09/24 19:15 06/09/24 20:04 2 MG Exam Vital Signs Vital Signs Date Time Temp Pulse Resp B/P (MAP) Pulse Ox O2 Delivery O2 Flow Rate FiO2 06/10/24 02:37 55 16 148/60 (89) 98 06/10/24 02:37 Room Air* 0 21 06/10/24 01:45 97.9 97.9 Exam Gen: 68-year-old female mild distress Skin: Warm, dry, normal color and texture, no rash. HEENT: Normocephalic atraumatic, mucous membranes moist and pink. Neck: Cervical and supraclavicular nodes normal without enlargement, trachea is midline, thyroid gland is normal without masses. Pulmonary: Clear to auscultation and percussion bilaterally. Cardiac: Regular rate and rhythm. No murmur Abdomen: Soft, nontender, nondistended, bowel sounds present all 4 quadrants, no guarding, no rigidity, no organomegaly. Extremities: No cyanosis, clubbing, no edema Neuro: Cranial nerves II through XII grossly intact, normal affect and speech, no focal motor deficits. Labs/Xrays ORDERING PHYSICIAN: SUZI BRITT MD PROCEDURE(s): HWOCT - HEAD WITHOUT CONTRAST REASON: HTN ORDER NUMBER(s): [id number], ACCESSION NUMBER(s): [id number] EXAM: CT HEAD WITHOUT CONTRAST HISTORY: HTN COMPARISON: CT HEAD WITHOUT CONTRAST on DOS: 02/28/24 TECHNIQUE: Axial images were obtained and reformatted in coronal and sagittal planes. All CT scans at this medical facility are performed using dose modulation techniques as appropriate to a performed exam including the following: Automated exposure control was utilized; adjustment of the MA and/or KV according to patient size; and use of iterative reconstruction technique. CT Dose: CTDI volume is 52.38 mGy. Dose-length product is 927.31 mGy*cm FINDINGS: Supratentorial Region: No evidence for large acute territorial ischemia. No intracranial hemorrhage is noted. Posterior Fossa: No acute abnormality. Brainstem: Unremarkable. Sellar/Suprasellar Region: Unremarkable. Ventricles, Cisterns, Sulci: Age-appropriate. Orbits: Unremarkable. Paranasal Sinuses: Unremarkable. Mastoid Air Cells: Unremarkable. Vasculature: Intracranial arterial calcified plaque formation noted. Bones/Soft Tissues: No acute abnormality. Other: None. IMPRESSION: 1. No acute intracranial process. Labs Test 06/09/24 13:09 06/09/24 12:14 Range/Units Troponin I High Sensitivity 16 </=34 ng/L White Blood Count 6.7 4.4-10.8 10^3/uL Red Blood Count 4.75 4.0-5.20 10^6/uL Hemoglobin 14.9 12.2-16.2 g/dL Hematocrit 45.1 36.0-46.0 % Mean Corpuscular Volume 94.9 80.0-100.0 fL Mean Corpuscular Hemoglobin 31.4 28.0-32.0 pg Mean Corpuscular Hemoglobin Concent 33.1 32.0-36.0 g/dL Red Cell Distribution Width 14.3 11.8-14.3 % Platelet Count 174 140-450 10^3/uL Mean Platelet Volume 11.9 H 6.9-10.8 fL Neutrophils (%) (Auto) 61.0 37.0-80.0 % Lymphocytes (%) (Auto) 28.2 10.0-50.0 % Monocytes (%) (Auto) 9.4 0.0-12.0 % Eosinophils (%) (Auto) 1.1 0.0-7.0 % Basophils (%) (Auto) 0.3 0.0-2.0 % Neutrophils # (Auto) 4.1 1.6-8.6 10 ^3/uL Lymphocytes # (Auto) 1.9 0.4-5.4 10 ^3/uL Monocytes # (Auto) 0.6 0-1.3 10 ^3/uL Eosinophils # (Auto) 0.1 0-0.8 10 ^3/uL Basophils # (Auto) 0 0-0.2 10 ^3/uL Nucleated Red Blood Cells 0.0 % Platelet Estimate Adequate Large Platelets Few Sodium Level 142 136-145 mmol/L Potassium Level 3.4 L 3.5-5.1 mmol/L Chloride Level 107 98-107 mmol/L Carbon Dioxide Level 26 20-31 mmol/L Anion Gap 9 5-15 Blood Urea Nitrogen 15 9-23 mg/dL Creatinine 0.65 0.550-1.02 mg/dL Glomerular Filtration Rate Calc 95 >90 mL/min BUN/Creatinine Ratio 23.1 H 10.0-20.0 Serum Glucose 95 74-106 mg/dL Calcium Level 10.7 H 8.7-10.4 mg/dL B-Type Natriuretic Peptide 107.94 0-100 pg/mL Assessment/Plan Assessment/Plan Assessment Hypertensive urgency Electrolyte imbalance CHF Plan Admit the patient to telemetry to the hospitalist Resume home medications As needed antihypertensives Echocardiogram pending Replete electrolytes Continue treatment per orders. Plan discussed with: Patient My Orders Orders - RADHA HARRELL Procedure Category Date Status Time (Nf) Felodipine PHA 06/10/24 Pending 10:00 Hydralazine Injection PHA 06/09/24 In Process (Apresoline Inject 19:15 Atorvastatin (Lipitor) PHA 06/09/24 In Process 22:00 Basic Metabolic Panel LAB 06/10/24 Logged 04:00 Admit ADMIT 06/09/24 Transmitted 19:05 Ondansetron Hcl PHA 06/09/24 In Process (Zofran) 19:15 Cardiac DIET 06/10/24 Transmitted Diet-2gna,Lofat,Lochol Breakfast Echo 2d Mode Cardiac US 06/09/24 Logged DOP 19:05 Condition: Fair REX 06/09/24 In Process 19:05 Acetaminophen Tablet PHA 06/09/24 In Process (Tylenol Tablet) 19:15 Bedrest With Bathroom REX 06/09/24 In Process Privileg 19:05 Nitroglycerin PHA 06/09/24 In Process Sublingual (Ntrostat 19:15 Morphine Sulfate PHA 06/09/24 In Process Injection 19:15 Stat Ekg For Chest REX 06/09/24 In Process Pain 19:05 Notify Md Of Changes REX 06/09/24 In Process From Base 19:05 Librarian [facility] 06/09/24 In Process 24 Hours 19:05 Emergency Dysrhythmia [facility] 06/09/24 In Process Protocol 19:05 Rhythm Strips Once [facility] 06/09/24 In Process Every Shift 19:05 Oxygen By Nasal RT 06/09/24 Transmitted Cannula 19:05 Date of Service: Jun 09, 2024 Billing Provider: RADHA HARRELL Common Visit Codes: [id number] INP/OBS CARE (HIGH) RADHA HARRELL Jun 10, 2024 04:46
[2024-06-10 06:53] LABS: Calcium 9.9 mg/dL (8.7-10.4); Sodium 144 mmol/L (136-145)
[2024-06-10 06:54] LABS: Anion Gap 10 (5-15); Carbon Dioxide 27 mmol/L (20-31)
[2024-06-10 06:59] LABS: BUN/Creatinine Ratio 19.8 (10.0-20.0); Blood Urea Nitrogen 17 mg/dL (9-23)
[2024-06-10 07:02] LABS: Chloride 107 mmol/L (98-107); Glucose 131 mg/dL (74-106); Potassium 3.2 mmol/L (3.5-5.1)
[2024-06-10] MEDS ORDERED: amLODIPine BESYLATE 5 MG TAB PO SCH (10:00)
--- NOTE | 2024-06-10 10:15 | DVHPN2 ---
Subjective Admitted for high BP No complaints Changes from previous H/P or p: Changes Objective Vitals Vital Signs Date Time Temp Pulse Resp B/P (MAP) Pulse Ox O2 Delivery O2 Flow Rate FiO2 06/10/24 09:07 97.8 51 18 144/58 (86) 98 97.8 06/10/24 02:37 Room Air* 0 21 Intake/Output Intake and Output 06/10/24 07:00 Intake Total 200 ml Balance 200 ml Intake Oral 200 ml # Voids 1 General Appearance: Alert, Oriented X3, Cooperative, No acute distress Lungs: Clear to auscultation, Normal air movement Cardiovascular: Regular rate, Normal S1, Normal S2 Abdomen: Normal bowel sounds, Soft, No tenderness Extremities: Other (2+ edema) Medications Current Medications Medications Dose Ordered Sig/Alfonso Route Start Time Stop Time Status Last Admin Dose Admin Hydralazine HCl 10 mg Q6HP PRN IV 06/09/24 19:15 Atorvastatin Calcium 40 mg HS PO 06/09/24 22:00 06/09/24 22:10 40 MG Ondansetron HCl 4 mg Q4HP PRN IV 06/09/24 19:15 Acetaminophen 650 mg Q6HP PRN PO 06/09/24 19:15 06/10/24 02:59 650 MG Nitroglycerin 0.4 mg Q5MINP PRN SL 06/09/24 19:15 Morphine Sulfate 2 mg Q30M PRN IV 06/09/24 19:15 06/09/24 20:04 2 MG Laboratory Results Laboratory Tests 06/09/24 12:14 06/10/24 05:41 Chemistry Test 06/09/24 12:14 06/10/24 05:41 Calcium Level 10.7 mg/dL (8.7-10.4) H 9.9 mg/dL (8.7-10.4) Cardiac Markers Test 06/09/24 12:14 B-Type Natriuretic Peptide 107.94 pg/mL (0-100) Assessment/Plan Assessment/Plan Hypertensive urgency Uncontrolled HTN Hypokalemia Bilateral chronic lymphedema h/o afib? 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 Stop amlodipine here Start Losartan 100 mg qd HCTZ 12.5 mg qd Add hydralazine 25 mg tid Replace K+ Lipitor Aspirin Plan discussed with: Patient, Spouse My Orders Orders - RUSSELL CORONA MD Procedure Category Date Status Time Gabapentin Capsule PHA 06/10/24 Transmitted (Neurontin Capsule) 14:00 Losartan Tablet PHA 06/11/24 Transmitted (Cozaar Tablet) 10:00 Losartan Tablet PHA 06/10/24 Transmitted (Cozaar Tablet) 10:15 Hydrochlorothiazide PHA 06/11/24 Transmitted Tablet (Hydrochlorot 10:00 Hydrochlorothiazide PHA 06/10/24 Transmitted Tablet (Hydrochlorot 10:15 Aspirin Tablet PHA 06/10/24 Transmitted 10:15 Aspirin Tablet PHA 06/11/24 Transmitted 10:00 Date of Service: Jun 10, 2024 Billing Provider: RUSSELL CORONA MD Common Visit Codes: NOT BILLABLE RUSSELL CORONA MD Jun 10, 2024 10:15
[2024-06-10] MEDS: ASPirin 81 mg TAB PO ONE (10:52)
[2024-06-10] MEDS: POTASSIUM CHL 20 Meq TABLET PO ONE (10:52)
[2024-06-10] MEDS: LOSARTAN POTASSIUM 50 MG TAB PO ONE (10:57)
[2024-06-10] MEDS: hydroCHLOROthiazide 25 MG TAB PO ONE (10:57)
--- NOTE | 2024-06-10 13:23 | DVHSR ---
APPROVED REPORT EXAM: Two-dimensional and M-mode echocardiogram with Doppler and color Doppler. Blood Pressure: 175/63 mmHg INDICATION Hypertension RISK FACTORS Height: 66, Weight: 186 DIMENSIONS LVDd4.0 (3.8-5.7cm)LA (2D)4.0 (1.9-4.0cm)Aortic Root2.6 (2.0-3.7cm) LVDs2.9 (2.5-4.0cm)LA (MM) (1.9-4.0cm)Aortic Cusp Exc1.2 (1.5-2.0cm) EF (%) 55.0 (55-70%)Rt. Atrium4.9 (1.9-4.0cm)Asc. Aorta cm IVSd1.2 (0.7-1.1cm)RV (D) (1.8-2.4cm) PWd1.3 (0.7-1.1cm) Mitral Valve MitralMitral Stenosis E wave0.66m/sMV Mean GR.mmHg A wave1.17m/sMV Peak GR.mmHg E/A ratio0.62D MVAcm2 DECEL [id number] 1/2 [id number] IVRTmsDop MVA2.54cm2 Aortic Valve Aortic ValveAortic Stenosis V11.80m/Wang Mean GR.16mmHg V22.74m/Wang Peak GR.30mmHg LVOT Diameter1.4 (1.8-2.4cm)Doppler AVA1.01cm2 AI P 1/2 Hyla784.78ms Pulmonic Valve V21.41m/s Tricuspid Valve TR Velocity2.92m/s [id number] Conclusion Sinus rhythm. Biatrial enlargement with concentric LVH. Mild aortic sclerosis. Left ventricular function is preserved at 60% with normal RV function. Mild aortic insufficiency. Moderate tricuspid regurgitation. No pericardial effusion masses or vegetations
[2024-06-10] MEDS: hydrALAZINE HCL 25 MG TAB PO SCH (14:51)
[2024-06-10] MEDS: HYDROcodone-ACET 5/325MG TAB PO PRN (14:51)
[2024-06-10] MEDS: GABAPENTIN 100 MG CAP PO SCH (14:52)
[2024-06-11 01:00] VITALS: BP 117/59; PULSE 65; RESP 18; TEMP 98.4; O2SAT 96
[2024-06-11 05:00] VITALS: BP 124/59; PULSE 50; RESP 18; TEMP 97.7; O2SAT 98
[2024-06-11 07:22] LABS: Anion Gap 10 (5-15); Carbon Dioxide 24 mmol/L (20-31); Potassium 4.3 mmol/L (3.5-5.1); Sodium 143 mmol/L (136-145)
[2024-06-11 07:26] LABS: Glucose 99 mg/dL (74-106)
[2024-06-11 07:27] LABS: Magnesium 1.9 mg/dL (1.6-2.6)
[2024-06-11 07:28] LABS: BUN/Creatinine Ratio 23.3 (10.0-20.0); Blood Urea Nitrogen 17 mg/dL (9-23)
[2024-06-11 07:32] LABS: Chloride 109 mmol/L (98-107)
[2024-06-11 08:00] VITALS: PULSE 60; PULSE 67; RESP 16; O2SAT 95
[2024-06-11 08:52] VITALS: BP 126/53; PULSE 60; RESP 16; TEMP 97.7; O2SAT 95
[2024-06-11] MEDS: ASPirin 81 mg TAB PO SCH (09:49)
[2024-06-11] MEDS: hydroCHLOROthiazide 25 MG TAB PO SCH (09:50)
[2024-06-11] MEDS: LOSARTAN POTASSIUM 50 MG TAB PO SCH (09:51)
[2024-06-11] MEDS ORDERED: HYDR25TA87 PO (10:11)
[2024-06-11] MEDS ORDERED: TRAM-626 PO (10:12)
--- NOTE | 2024-06-11 10:17 | DVHDS2 ---
Discharge Summary Date of Admission Jun 09, 2024 at 19:05 Date of Discharge: Jun 11, 2024 Labs/Diagnostic Data: Laboratory Results Test 06/11/24 05:59 06/09/24 13:09 06/09/24 12:14 Sodium Level 143 mmol/L (136-145) Potassium Level 4.3 mmol/L (3.5-5.1) Chloride Level 109 mmol/L (98-107) Carbon Dioxide Level 24 mmol/L (20-31) Anion Gap 10 (5-15) Blood Urea Nitrogen 17 mg/dL (9-23) Creatinine 0.73 mg/dL (0.550-1.02) Glomerular Filtration Rate Calc 88 mL/min (>90) BUN/Creatinine Ratio 23.3 (10.0-20.0) Serum Glucose 99 mg/dL (74-106) Calcium Level 10.0 mg/dL (8.7-10.4) Magnesium Level 1.9 mg/dL (1.6-2.6) Troponin I High Sensitivity 16 ng/L (</=34) White Blood Count 6.7 10^3/uL (4.4-10.8) Red Blood Count 4.75 10^6/uL (4.0-5.20) Hemoglobin 14.9 g/dL (12.2-16.2) Hematocrit 45.1 % (36.0-46.0) Mean Corpuscular Volume 94.9 fL (80.0-100.0) Mean Corpuscular Hemoglobin 31.4 pg (28.0-32.0) Mean Corpuscular Hemoglobin Concent 33.1 g/dL (32.0-36.0) Red Cell Distribution Width 14.3 % (11.8-14.3) Platelet Count 174 10^3/uL (140-450) Mean Platelet Volume 11.9 fL (6.9-10.8) Neutrophils (%) (Auto) 61.0 % (37.0-80.0) Lymphocytes (%) (Auto) 28.2 % (10.0-50.0) Monocytes (%) (Auto) 9.4 % (0.0-12.0) Eosinophils (%) (Auto) 1.1 % (0.0-7.0) Basophils (%) (Auto) 0.3 % (0.0-2.0) Neutrophils # (Auto) 4.1 10 ^3/uL (1.6-8.6) Lymphocytes # (Auto) 1.9 10 ^3/uL (0.4-5.4) Monocytes # (Auto) 0.6 10 ^3/uL (0-1.3) Eosinophils # (Auto) 0.1 10 ^3/uL (0-0.8) Basophils # (Auto) 0 10 ^3/uL (0-0.2) Nucleated Red Blood Cells 0.0 % Platelet Estimate Adequate Large Platelets Few B-Type Natriuretic Peptide 107.94 pg/mL (0-100) Other Laboratory Tests 06/11/24 05:59 06/09/24 12:14 Brief Hx & Hospital Course: Final diagnoses: Hypertensive urgency Uncontrolled HTN Hypokalemia Bilateral chronic lymphedema h/o afib? Bradycardia Mixed hyperlipidemia She could not take Ca++ channel blockers due to leg edema or B-Blockers due to bradycardia so we replaced it with hydralazine Continue ARB and HCTZ Resume other home meds F/U with Dr. Ghulam GARZA Condition at Discharge: Stable Final Diagnosis/Problems List Uncontrolled HTN Secondary Diagnosis: Hypokalemia Bilateral chronic lymphedema h/o afib? Bradycardia Mixed hyperlipidemia Discharge Disposition: Home SNF Discharge Will this Physician continue t: No Discharge Instruct/Medications Diet: Cardiac 2g Na,low cholest Activity: No Restrictions, As Tolerated Follow Up/Referral: PCP KAYLA Medications: Resume home meds DC Felodipine Add Hydralazine 25 mg tid Discharge Statement: "Patient was advised to return to the ER or call 911 if any headaches, dizziness, shortness of breath, chest pain, abdominal pain, bleeding, fevers, or worsening of medical condition. Patient was counseled about treatment plan, medications, possible side effects, patientverbalized understanding. All questions were answered to the best of my ability. This discharge took greater then 30 minutes in planning, reviewing documentation, counseling the patient, and discussing with other team members." ASSESSMENT ASSESSMENT Assessment Uncontrolled HTN Date of Service: Jun 11, 2024 Billing Provider: RUSSELL CORONA MD Common Visit Codes: NOT BILLABLE RUSSELL CORONA MD Jun 11, 2024 10:17
[2024-06-11 12:00] VITALS: BP 130/67; PULSE 64; RESP 16; TEMP 98.1; O2SAT 98
[2024-06-11 12:23] VITALS: BP 130/62; PULSE 64; RESP 16; TEMP 98.1; O2SAT 98
== END 2024-06-11 15:32 | disposition home or self-care (01) | DRG 305 ==
LOC: EDBD 11:36 → EDUNIT# 11:36 → ER 11:44 → TELE 19:05 → TELE-CENTR 06-10 02:07
PROVIDERS: ADMIT Nurse Practitioner; ATTEND Internal Medicine Geriatric Medicine
DX: I16.1 Hypertensive emergency (principal); E87.6 Hypokalemia; I11.0 Hypertensive heart disease with heart failure; I50.9 Heart failure, unspecified; E87.8 Other disorders of electrolyte and fluid balance, not elsewhere classified; E78.2 Mixed hyperlipidemia; I89.0 Lymphedema, not elsewhere classified; I48.91 Unspecified atrial fibrillation; J45.909 Unspecified asthma, uncomplicated; R00.1 Bradycardia, unspecified; Z88.2 Allergy status to sulfonamides
CPT/HCPCS: 36415; 70450; 80048; 83735; 83880; 84484; 85025; 93306; 99291; G0378

== ENCOUNTER 2024-06-18 13:30 | Emergency (ER) | payer OTHER ==
[~2024-06-18] VITALS: Ht 167.6 cm; Wt 85.4 kg
[~2024-06-18 13:30] MED LIST changes: +ASPI-543 PO; -ATOR40TA52 PO; -FELO10TA28 PO; -HYDR-4902 PO; +HYDR12.55; +HYDR25TA87 PO; +ROSU40TA47; +TRAM-626 PO
--- NOTE | 2024-06-18 13:50 | ECG ---
[facility] Test Date: 2024-06-18 Test Time: 13:39:02 Pat Name: NASIR ROSARIO Department: ER Room: Gender: F Clinical Exercise Physiologist: ISELA : 1955 Requested By: TREVON MAURER Order Number: [id number] Reading MD: Mayank Vidales Measurements Intervals Tram Rate: 66 P: 1 [place]: 121 QRS: 7 QRSD: 87 T: 54 QT: 406 QTc: 426 Interpretive Statements Sinus rhythm Left ventricular hypertrophy Anterior Q waves, possibly due to LVH Baseline wander in lead(s) I,III,aVL Electronically Signed On 06-20-2024 11:57:21 PST by Mayank Vidales Please click the below link to view image of tracing.
--- NOTE | 2024-06-18 14:36 | ED.PDOC ---
HPI (NEURO) HPI Comments 68 y/o F, presents to the ED for CC dizziness. Patient states, that she sat down to draw this morning (06/18/24) when she began to feel dizzy. Patient comments on, associated symptoms of headache and nausea. Patient denies chest pain, shortness of breath, fever, chills, or N/V/D. No other symptoms or modifying factors at this time. 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 History Family History Family History: Reviewed,noncontributory to illness, No family hx of Cancer, No family hx of DM, No family hx of Heart asya, No family hx of HTN, No family hx ofKidney asya, No family hx of Liver asya, No family hx of Lung asya, No family hx of Stroke Social History Smoker: Non-Smoker Alcohol: Denies ETOH Use Drugs: Denies Drug Use Lives In: Home Constitutional: denies: chills, diaphoresis, fatigue, fever, malaise, sweats, weakness, others EENTM: denies: blurred vision, double vision, ear bleeding, ear discharge, ear drainage, ear pain, ear ringing, eye pain, eye redness, hearing loss, mouth pain, mouth swelling, nasal discharge, nose bleeding, nose congestion, nose pain, photophobia, tearing, throat pain, throat swelling, voice changes, others Respiratory: denies: cough, hemoptysis, orthopnea, SOB at rest, shortness of breath, SOB with excertion, stridor, wheezing, others Cardiovascular: denies: chest pain, dizzy spells, diaphoresis, Dyspnea on exertion, edema, irregular heart beat, left arm pain, lightheadedness, palpitations, PND, syncope, others Gastrointestinal: reports: nausea; denies: abdomen distended, abdominal pain, blood streaked bowels, constipated, diarrhea, dysphagia, difficulty swallowing, hematemesis, melena, poor appetite, poor fluid intake, rectal bleeding, rectal pain, vomiting, others Genitourinary: denies: abnormal vagina bleeding, burning, dyspareunia, dysuria, flank pain, frequency, hematuria, incontinence, pain, , vagina discharge, urgency, others Neurological: reports: dizziness, headache; denies: fainting, left sided numbness, left sided weakness, numbness, paresthesia, pre-existing deficit, right sided numbness, right sided weakness, seizure, speech problems, tingling, tremors, weakness, others Musculoskeletal: denies: back pain, gout, joint pain, joint swelling, muscle pain, muscle stiffness, neck pain, others Allergic/Immunocompromised: denies: Difficulty Healing, Frequent Infections, Hives, Itching, others Hematologic/Lymphatic: denies: anemia, blood clots, easy bleeding, easy bruising, swollen glands, others Endocrine: denies: excessive hunger, excessive sweating, excessive thirst, excessive urination, flushing, intolerance to cold, intolerance to heat, unexplained weight gain, unexplained weight loss, others Psychiatric: denies: anxiety, bipolar disorder, depression, hopeless, panic disorder, schizophrenia, sleepless, suicidal, others All Other Systems: Reviewed and Negative Physical Exam General Appearance: No Apparent Distress HEENT: Normal ENT Inspection, Pharynx Normal, TMs Normal Neck: Full Range of Motion, Non-Tender, Normal, Normal Inspection Respiratory: Chest Non-Tender, Lungs Clear, No Accessory Muscle Use, No Respiratory Distress, Normal Breath Sounds Cardiovascular: No Edema, No JVD, No Murmur, No Gallop, Normal Peripheral Pulses, Regular Rate/Rhythm Breast Exam: Deferred Gastrointestinal: No Organomegaly, Non Tender, No Pulsatile Mass, Normal Bowel Sounds, Soft Genitalia: Deferred Pelvic: Deferred Rectal: Deferred Extremities: No calf tenderness, Normal capillary refill, Normal inspection, Normal range of motion, Non-tender, No pedal edema Musculoskeletal : Apperance: Normal Neurologic: Alert, planning and analysis manager II-XII nml as Tested, No Motor Deficits, Normal Affect, Normal Mood, No Sensory Deficits Cerebellar Function: Normal Reflexes: Normal Skin: Dry, Normal Color, Warm Lymphatic: No Adenopathy Was a procedure done? Was a procedure done?: No Differential Diagnosis (SZ) Seizure: N/A General Weakness: Dehydration, Electrolyte imbalance, Hypotension X-Ray, Labs, Meds, VS Vital Signs Date Time Temp Pulse Resp B/P (MAP) Pulse Ox O2 Delivery O2 Flow Rate FiO2 06/18/24 13:40 97.5 60 18 126/77 (93) 97 06/18/24 13:39 66 Lab Test 06/18/24 16:05 06/18/24 14:51 Range/Units Troponin I High Sensitivity Pending 13 </=34 ng/L White Blood Count 8.3 4.4-10.8 10^3/uL Red Blood Count 4.83 4.0-5.20 10^6/uL Hemoglobin 14.9 12.2-16.2 g/dL Hematocrit 45.4 36.0-46.0 % Mean Corpuscular Volume 94.0 80.0-100.0 fL Mean Corpuscular Hemoglobin 30.8 28.0-32.0 pg Mean Corpuscular Hemoglobin Concent 32.8 32.0-36.0 g/dL Red Cell Distribution Width 14.0 11.8-14.3 % Platelet Count 178 140-450 10^3/uL Mean Platelet Volume 11.9 H 6.9-10.8 fL Neutrophils (%) (Auto) 79.1 37.0-80.0 % Lymphocytes (%) (Auto) 13.0 10.0-50.0 % Monocytes (%) (Auto) 7.0 0.0-12.0 % Eosinophils (%) (Auto) 0.6 0.0-7.0 % Basophils (%) (Auto) 0.3 0.0-2.0 % Neutrophils # (Auto) 6.6 1.6-8.6 10 ^3/uL Lymphocytes # (Auto) 1.1 0.4-5.4 10 ^3/uL Monocytes # (Auto) 0.6 0-1.3 10 ^3/uL Eosinophils # (Auto) 0.1 0-0.8 10 ^3/uL Basophils # (Auto) 0 0-0.2 10 ^3/uL Nucleated Red Blood Cells 0.1 % Sodium Level 143 136-145 mmol/L Potassium Level 3.6 3.5-5.1 mmol/L Chloride Level 106 98-107 mmol/L Carbon Dioxide Level 29 20-31 mmol/L Anion Gap 8 5-15 Blood Urea Nitrogen 24 H 9-23 mg/dL Creatinine 0.83 0.550-1.02 mg/dL Glomerular Filtration Rate Calc 76 >90 mL/min BUN/Creatinine Ratio 28.9 H 10.0-20.0 Serum Glucose 138 H 74-106 mg/dL Calcium Level 10.2 8.7-10.4 mg/dL The patient's CBC is within normal limits The chemistry is within normal limits The patient was being discharged The patient will follow up with the primary care doctor The patient will return to the emergency department's the condition worsens. Time of 1ST Reevaluation: 14:40 Reevaluation 1ST: Unchanged Patient Education/Counseling: Diagnosis, Treatment, Prognosis, Need For Follow Up Family Education/Counseling: No Family Present Additional Information - I reviewed the following notes from patient's past medical encounters: 06/09/24 DX: HYPERTENSIVE URGENCY - The following tests were ordered, and results were reviewed by me: EKG, TROPONIN X3, CBC, UA, BMP - I discussed treatments and results with medical personnel and: PATIENT Departure 1 Departure Time of Disposition: 16:30 Impression: Primary Impression: Dizziness Disposition: 01 HOME / SELF CARE / HOMELESS Condition: Fair e-Prescriptions Meclizine HCl (Meclizine) 25 Mg Chw 25 MG PO BID for 5 Days, #10 CHW Prov: TREVON MAURER MD 06/18/24 Discharged With: Self Critical Care Note Critical Care Time?: No Stability Stability form required: No Heart Score Heart Score: Heart Score Response (Comments) Value History N/A 0 EKG N/A 0 Age N/A 0 Risk Factors N/A 0 Troponin N/A 0 Total 0 I personally scribed for TREVON MAURER MD ([email or web address]) on 06/18/24 at 14:36. Electronically submitted by Shanae Villa ([email or web address]). I personally scribed for TREVON MAURER MD ([email or web address]) on 06/18/24 at 15:34. Electronically submitted by Shanae Villa ([email or web address]). TREVON MAURER MD Jun 18, 2024 14:36
[2024-06-18 15:03] LABS: Basophils # (auto) 0 10 ^3/uL (0-0.2); Basophils % (auto) 0.3 % (0.0-2.0); Eosinophils # (auto) 0.1 10 ^3/uL (0-0.8); Eosinophils % (auto) 0.6 % (0.0-7.0); Hematocrit 45.4 % (36.0-46.0); Hemoglobin 14.9 g/dL (12.2-16.2); Lymphocytes # (auto) 1.1 10 ^3/uL (0.4-5.4); Mean Corpuscular Hemoglobin 30.8 pg (28.0-32.0); Mean Corpuscular Hgb Conc. 32.8 g/dL (32.0-36.0); Monocytes # (auto) 0.6 10 ^3/uL (0-1.3); Neutrophils # (auto) 6.6 10 ^3/uL (1.6-8.6); Neutrophils % (auto) 79.1 % (37.0-80.0); Nucleated Red Blood Cells % 0.1 %; Platelet Count (auto) 178 10^3/uL (140-450); Red Blood Cells 4.83 10^6/uL (4.0-5.20); White Blood Cell 8.3 10^3/uL (4.4-10.8)
[2024-06-18 15:12] LABS: Chloride 106 mmol/L (98-107); Potassium 3.6 mmol/L (3.5-5.1); Sodium 143 mmol/L (136-145)
[2024-06-18 15:13] LABS: Anion Gap 8 (5-15); Calcium 10.2 mg/dL (8.7-10.4); Carbon Dioxide 29 mmol/L (20-31)
[2024-06-18 15:18] LABS: BUN/Creatinine Ratio 28.9 (10.0-20.0)
[2024-06-18 15:25] LABS: Blood Urea Nitrogen 24 mg/dL (9-23); Glucose 138 mg/dL (74-106)
[2024-06-18] MEDS ORDERED: MECL25CH38 PO (16:25)
[2024-06-18 20:20] VITALS: BP 133/60; PULSE 58; RESP 16; TEMP 97.5; O2SAT 96
== END 2024-06-18 20:29 | disposition home or self-care (01) ==
LOC: EDBD 13:30 → ER 13:30
DX: R42 Dizziness and giddiness (principal); R51.9 Headache, unspecified; R11.0 Nausea; I11.0 Hypertensive heart disease with heart failure; I50.9 Heart failure, unspecified; E78.5 Hyperlipidemia, unspecified; I48.91 Unspecified atrial fibrillation; J45.909 Unspecified asthma, uncomplicated
CPT/HCPCS: 36415; 80048; 84484; 85025; 93005

== ENCOUNTER 2024-06-22 19:03 | Emergency (ER) | payer OTHER ==
[~2024-06-22] VITALS: Ht 167.6 cm; Wt 85.0 kg
[~2024-06-22 19:03] MED LIST changes: +MECL25CH38 PO
--- NOTE | 2024-06-22 20:06 | ED.PDOC ---
HPI Comments 68-year-old female came to emergency room via EMS for chest pain. Patient has history of hypertension, dyslipidemia, AFib, asthma, congestive heart failure, states for the past few hours, she has been having intermittent episodes of left-sided chest pains, 5/10 intensity, unprovoked, associated with dizziness nausea. Upon arrival of paramedics, noted blood pressure 207/72 mm Hg. Patient was given nitroglycerin while en route to the ER. Chief Complaint: Chest Pain Time Seen by MD: 20:05 Primary Care Provider: LESVIA Reviewed Notes: Nurses Notes Allergies: Coded Allergies: Sulfa Antibiotics (Verified Allergy, Unknown, 11/25/23) Home Meds Active Scripts Meclizine HCl (Meclizine) 25 Mg Chw, 25 MG PO BID for 5 Days, #10 CHW Prov:TREVON MAURER MD 06/18/24 Tramadol HCl (Tramadol HCl) 50 Mg Tab, 50 MG PO Q6HP PRN, #30 TAB Prov:RUSSELL CORONA MD 06/11/24 Hydralazine HCl (Hydralazine HCl) 25 Mg Tab, 25 MG PO TID, #90 TAB 5 Refills Prov:RUSSELL CORONA MD 06/11/24 Reported Medications Rosuvastatin Calcium (Rosuvastatin Calcium) 40 Mg Tab, 1 DAILY 06/10/24 Aspirin (Aspir-Low) 81 Mg Tab, 81 MG PO DAILY for 30 Days, MG 06/10/24 Hydrochlorothiazide (Hydrochlorothiazide) 12.5 Mg Tab, 1 DAILY 06/10/24 Gabapentin (Gabapentin) 100 Mg Cap, 1 CAP PO TID 02/29/24 Olmesartan Medoxomil (Olmesartan Medoxomil) 40 Mg Tab, 1 TAB PO DAILY 02/29/24 Information Source: Patient, Emergency Med Personnel Mode of Arrival: EMS Severity: Moderate Timing: Hours Duration: Intermittent Prehospital treatment: NTG, Oxygen Location: Chest (L) Radiation: No Radiation Quality: Pressure Onset: With Light Exertion Cardiac Risk Factors: Hyperlipidemia, HTN, Other (Congestive heart failure) Associated Signs and Symptoms: N/V, Other (Dizziness) Past Medical History PAST MEDICAL HISTORY: AFIB, Asthma, CAD, CHF, High Lipids, HTN Surgical History: Denies all surgeries 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 History Family History Family History: Reviewed,noncontributory to illness, No family hx of Cancer, No family hx of DM, No family hx of Heart asya, No family hx of HTN, No family hx ofKidney asya, No family hx of Liver asya, No family hx of Lung asya, No family hx of Stroke Social History Smoker: Non-Smoker Alcohol: Denies ETOH Use Drugs: Denies Drug Use Lives In: Home Constitutional: denies: chills, diaphoresis, fatigue, fever, malaise, sweats, weakness, others EENTM: denies: blurred vision, double vision, ear bleeding, ear discharge, ear drainage, ear pain, ear ringing, eye pain, eye redness, hearing loss, mouth pain, mouth swelling, nasal discharge, nose bleeding, nose congestion, nose pain, photophobia, tearing, throat pain, throat swelling, voice changes, others Respiratory: denies: cough, hemoptysis, orthopnea, SOB at rest, shortness of breath, SOB with excertion, stridor, wheezing, others Cardiovascular: reports: chest pain, dizzy spells; denies: diaphoresis, Dyspnea on exertion, edema, irregular heart beat, left arm pain, lightheadedness, palpitations, PND, syncope, others Gastrointestinal: reports: nausea; denies: abdomen distended, abdominal pain, blood streaked bowels, constipated, diarrhea, dysphagia, difficulty swallowing, hematemesis, melena, poor appetite, poor fluid intake, rectal bleeding, rectal pain, vomiting, others Genitourinary: denies: abnormal vagina bleeding, burning, dyspareunia, dysuria, flank pain, frequency, hematuria, incontinence, pain, , vagina discharge, urgency, others Neurological: denies: dizziness, fainting, headache, left sided numbness, left sided weakness, numbness, paresthesia, pre-existing deficit, right sided numbness, right sided weakness, seizure, speech problems, tingling, tremors, weakness, others Musculoskeletal: denies: back pain, gout, joint pain, joint swelling, muscle pain, muscle stiffness, neck pain, others Integumetry: denies: bruises, change in color, change in hair/nails, dryness, laceration, lesions, lumps, rash, wounds, others Allergic/Immunocompromised: denies: Difficulty Healing, Frequent Infections, Hives, Itching, others Hematologic/Lymphatic: denies: anemia, blood clots, easy bleeding, easy bruising, swollen glands, others Endocrine: denies: excessive hunger, excessive sweating, excessive thirst, excessive urination, flushing, intolerance to cold, intolerance to heat, unexplained weight gain, unexplained weight loss, others Psychiatric: denies: anxiety, bipolar disorder, depression, hopeless, panic disorder, schizophrenia, sleepless, suicidal, others Physical Exam General Appearance: Mild Distress, Normal HEENT: Normal ENT Inspection, Pharynx Normal, TMs Normal Neck: Full Range of Motion, Non-Tender, Normal, Normal Inspection Respiratory: Chest Non-Tender, Lungs Clear, No Accessory Muscle Use, No Respiratory Distress, Normal Breath Sounds Cardiovascular: No Edema, No JVD, No Murmur, No Gallop, Normal Peripheral Pulses, Regular Rate/Rhythm Breast Exam: Deferred Gastrointestinal: No Organomegaly, Non Tender, No Pulsatile Mass, Normal Bowel Sounds, Soft Genitalia: Deferred Pelvic: Deferred Rectal: Deferred Extremities: Leg edema, No calf tenderness, Normal capillary refill, Non- tender, Pedal edema Musculoskeletal : Apperance: Normal Neurologic: Alert, coal sample tester II-XII nml as Tested, No Motor Deficits, Normal Affect, Normal Mood, No Sensory Deficits Cerebellar Function: Normal Reflexes: Normal Skin: Dry, Normal Color, Warm Lymphatic: No Adenopathy EKG EKG : Pulse Rate (adult): 59 Cardiac Rhythm: NSR Was a procedure done? Was a procedure done?: No CP Differential Dx Differential Diagnosis: Angina, Anxiety / Panic Attack, Hyperventilation Differential Diagnosis: CHF, HTN Accelerated Differential Diagnosis: Angina, Chest Wall Pain, Costochondritis, Esophageal reflux/spasm, Gastritis, Myocardial Infarction X-Ray, Labs, Meds, VS Vital Signs Date Time Temp Pulse Resp B/P (MAP) Pulse Ox O2 Delivery O2 Flow Rate FiO2 06/22/24 20:31 57 06/22/24 20:06 59 06/22/24 19:15 59 06/22/24 19:13 97.5 66 18 129/62 (84) 97 Lab Test 06/22/24 21:34 06/22/24 19:35 Range/Units Troponin I High Sensitivity 11 10 </=34 ng/L White Blood Count 5.8 # 4.4-10.8 10^3/uL Red Blood Count 4.68 4.0-5.20 10^6/uL Hemoglobin 14.5 12.2-16.2 g/dL Hematocrit 44.1 36.0-46.0 % Mean Corpuscular Volume 94.4 80.0-100.0 fL Mean Corpuscular Hemoglobin 30.9 28.0-32.0 pg Mean Corpuscular Hemoglobin Concent 32.8 32.0-36.0 g/dL Red Cell Distribution Width 13.9 11.8-14.3 % Platelet Count 171 140-450 10^3/uL Mean Platelet Volume 12.1 H 6.9-10.8 fL Neutrophils (%) (Auto) 54.3 37.0-80.0 % Lymphocytes (%) (Auto) 33.6 10.0-50.0 % Monocytes (%) (Auto) 10.2 0.0-12.0 % Eosinophils (%) (Auto) 1.3 0.0-7.0 % Basophils (%) (Auto) 0.6 0.0-2.0 % Neutrophils # (Auto) 3.1 1.6-8.6 10 ^3/uL Lymphocytes # (Auto) 1.9 0.4-5.4 10 ^3/uL Monocytes # (Auto) 0.6 0-1.3 10 ^3/uL Eosinophils # (Auto) 0.1 0-0.8 10 ^3/uL Basophils # (Auto) 0 0-0.2 10 ^3/uL Nucleated Red Blood Cells 0.1 % Prothrombin Time 10.5 9.3-11.8 sec Prothrombin Time INR 0.99 0.9-1.15 Activated Partial Thromboplast Time 27.4 24.5-34.5 SEC Sodium Level 143 136-145 mmol/L Potassium Level 3.9 3.5-5.1 mmol/L Chloride Level 107 98-107 mmol/L Carbon Dioxide Level 25 20-31 mmol/L Anion Gap 11 5-15 Blood Urea Nitrogen 26 H 9-23 mg/dL Creatinine 0.69 0.550-1.02 mg/dL Glomerular Filtration Rate Calc 93 >90 mL/min BUN/Creatinine Ratio 37.7 H 10.0-20.0 Serum Glucose 105 74-106 mg/dL Calcium Level 9.8 8.7-10.4 mg/dL Total Bilirubin 0.4 0.2-1.0 mg/dL Aspartate Amino Transferase (AST) 29 13-40 U/L Alanine Aminotransferase (ALT) 24 7-40 U/L Alkaline Phosphatase 87 46-116 U/L B-Type Natriuretic Peptide 73.98 0-100 pg/mL Total Protein 6.1 5.7-8.2 g/dL Albumin 4.4 3.2-4.8 g/dL CHEST RADIOGRAPH Indication: chest pain Technique: Single frontal view of the chest was obtained Comparison: XY CHEST PORTABLE on DOS: 05/21/24, XY CHEST PORTABLE on DOS: 02/05 09/28, XY CHEST XRAY 1 VIEW on DOS: 01/19/24 FINDINGS: Lines and Tubes: None Lungs: Clear Pleura: No effusion. No pneumothorax. Cardiomediastinal contours: Unremarkable Bones: Unremarkable IMPRESSION: Clear lungs. The 1st troponin is 10. Second troponin is 11. BNP is 74 and EKG shows no signs of ischemia. CBC and CMP are essentially normal. The patient hypertension and chest pain resolved with nitroglycerin by EMS. She is to follow up with the primary care physician in 1-2 days. Time of 1ST Reevaluation: 20:00 Reevaluation 1ST: Unchanged Patient Education/Counseling: Diagnosis, Treatment Family Education/Counseling: No Family Present Departure 1 Departure Time of Disposition: 23:43 Impression: Primary Impression: Chest pain Qualified Codes: R07.9 - Chest pain, unspecified Disposition: HOME / SELF CARE / HOMELESS Condition: Stable Additional Instructions: Reassessed patient, vital signs stable. Denies any new symptoms. Patient is able to tolerate PO and ambulate/be mobile at their baseline without concern. Risks and benefits of all medications given or prescribed, if any, discussed. All lab work, imaging and diagnostic studies were reviewed by me. The patient was counseled extensively on my clinical impression, diagnosis, expected course of the disease, and plan, including their follow-up care. Will discharge patient. Patient instructed to follow up with Primary Care Physician within 24-48 hours. Strict return precautions given for further exacerbation of symptoms or for new symptoms. The patient was given the opportunity to ask questions and all questions were answered by myself and the nursing/tech staff. Patient is in agreement with the care plan. The patient verbally expressed understanding of the discharge instructions, including the reasons to return to the Emergency Department. Discharged With: Self Critical Care Note Critical Care Time?: Yes (35 min-critical care time only) Critical care comment: Chest pain, hypertensive urgency Stability Stability form required: No Heart Score Heart Score: Heart Score Response (Comments) Value History Slightly Suspicious 0 EKG Normal 0 Age N/A 0 Risk Factors N/A 0 Troponin Normal limit 0 Total 0 I personally scribed for UMM CAPPS MD ([email or web address]) on 06/22/24 at 20:06. Electronically submitted by Matt Benites ([email or web address]). I personally scribed for UMM CAPPS MD ([email or web address]) on 06/22/24 at 21:24. Electronically submitted by Matt Benites ([email or web address]). UMM CAPPS MD Jun 22, 2024 20:06
[2024-06-22 20:29] LABS: Basophils # (auto) 0 10 ^3/uL (0-0.2); Basophils % (auto) 0.6 % (0.0-2.0); Eosinophils # (auto) 0.1 10 ^3/uL (0-0.8); Eosinophils % (auto) 1.3 % (0.0-7.0); Hematocrit 44.1 % (36.0-46.0); Hemoglobin 14.5 g/dL (12.2-16.2); Lymphocytes # (auto) 1.9 10 ^3/uL (0.4-5.4); Lymphocytes % (auto) 33.6 % (10.0-50.0); Mean Corpuscular Hemoglobin 30.9 pg (28.0-32.0); Mean Corpuscular Hgb Conc. 32.8 g/dL (32.0-36.0); Mean Corpuscular Volume 94.4 fL (80.0-100.0); Monocytes # (auto) 0.6 10 ^3/uL (0-1.3); Monocytes % (auto) 10.2 % (0.0-12.0); Neutrophils # (auto) 3.1 10 ^3/uL (1.6-8.6); Neutrophils % (auto) 54.3 % (37.0-80.0); Nucleated Red Blood Cells % 0.1 %; Platelet Count (auto) 171 10^3/uL (140-450); Red Blood Cells 4.68 10^6/uL (4.0-5.20); Red Cell Distribution Width 13.9 % (11.8-14.3); White Blood Cell 5.8 10^3/uL (4.4-10.8)
[2024-06-22 20:47] LABS: INR 0.99 (0.9-1.15); Partial Thromboplastin Time 27.4 SEC (24.5-34.5); Prothrombin Time 10.5 sec (9.3-11.8)
[2024-06-22 20:49] LABS: Alanine Aminotransferase 24 U/L (7-40); Albumin 4.4 g/dL (3.2-4.8); Alkaline Phosphatase 87 U/L (46-116); Anion Gap 11 (5-15); Aspartate Aminotransferase 29 U/L (13-40); BUN/Creatinine Ratio 37.7 (10.0-20.0); Bilirubin, Total 0.4 mg/dL (0.2-1.0); Calcium 9.8 mg/dL (8.7-10.4); Carbon Dioxide 25 mmol/L (20-31); Chloride 107 mmol/L (98-107); Glucose 105 mg/dL (74-106); Potassium 3.9 mmol/L (3.5-5.1); Sodium 143 mmol/L (136-145); Total Protein 6.1 g/dL (5.7-8.2)
[2024-06-22 21:07] LABS: Blood Urea Nitrogen 26 mg/dL (9-23)
--- NOTE | 2024-06-22 21:17 | DVH ---
CHEST RADIOGRAPH Indication: chest pain Technique: Single frontal view of the chest was obtained Comparison: XY CHEST PORTABLE on DOS: 05/21/24, XY CHEST PORTABLE on DOS: 02/20/24, XY CHEST XRAY 1 EW on DOS: 01/19/24 FINDINGS: Lines and Tubes: None Lungs: Clear Pleura: No effusion. No pneumothorax. Cardiomediastinal contours: Unremarkable Bones: Unremarkable IMPRESSION: Clear lungs.
--- NOTE | 2024-06-22 21:56 | DVHINCON2 ---
DATE OF CONSULTATION: 06/22/2024 CARDIOLOGY CONSULTATION REASON FOR CONSULTATION: Abnormal EKG and severe hypertension. CONSULTING PHYSICIAN: Dr. Chilo Mccullough. REFERRING PHYSICIAN: ER. HISTORY OF PRESENT ILLNESS: The patient is a 68-year-old female with a history of CHF, not otherwise specified; diastolic dysfunction; hypertension. She has been here frequently over the last year or so, most recently in June. She is coming in with chest pain and severe hypertension. Her blood pressure was over 240. EMS picked her up. She did have chest pain at that time, which is now improved. EKG was done showing a subtle ST changes in leads V1 and V2, non-consecutively. On presentation here, his blood pressure was now improved to 129/62. PAST MEDICAL HISTORY: As stated above. ALLERGIES: SULFA. SOCIAL HISTORY: Reviewed. FAMILY HISTORY: Noncontributory. REVIEW OF SYSTEMS: A 10-point review of systems otherwise negative except for chest pain and shortness of breath. HEAD: Normocephalic, atraumatic. ENT: Dry mucous membranes. NECK: Supple. CARDIOVASCULAR: S1, S2. Regular rhythm. LUNGS: Clear to auscultation bilaterally. ABDOMEN: Soft, nontender. LABORATORY DATA: All are pending. ASSESSMENT: * Hypertensive emergency. * Chest pain, rule out acute coronary syndrome. * History of diastolic dysfunction. * History of peripheral arterial disease? PLAN: At this point, I would go ahead and check the troponins for the patient. The patient's blood pressure has improved to the 130s, the goal blood pressure should be around 160 or 170. If the initial blood pressure was about 240; check troponins, likely, will require admission to the hospital and further workup from the Cardiology Service. This is a stat consult. The patient was seen immediately. A 40 minutes of critical care time was spent. Chilo Mccullough MD CM/EVY TID: [id number] RECEIPT: [id number]
[2024-06-23 00:20] VITALS: TEMP 97.6
[2024-06-23 01:51] VITALS: BP 117/56; PULSE 56; RESP 11; O2SAT 98
--- NOTE | 2024-06-23 07:05 | ECG ---
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
--- NOTE | 2024-06-23 07:08 | ECG ---
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
== END 2024-06-23 02:05 | disposition home or self-care (01) ==
LOC: EDBD 19:03 → EDUNIT# 19:03 → ER 19:03
DX: R07.89 Other chest pain (principal); R42 Dizziness and giddiness; R11.0 Nausea; I11.0 Hypertensive heart disease with heart failure; I50.9 Heart failure, unspecified; I48.91 Unspecified atrial fibrillation; E78.5 Hyperlipidemia, unspecified; I25.10 Atherosclerotic heart disease of native coronary artery without angina pectoris; J45.909 Unspecified asthma, uncomplicated; Z88.2 Allergy status to sulfonamides; Z79.82 Long term (current) use of aspirin; Z79.899 Other long term (current) drug therapy
CPT/HCPCS: 36415; 71045; 80053; 83880; 84484; 85025; 85610; 85730; 93005

== ENCOUNTER 2024-06-26 14:59 | Inpatient (IN) | payer OTHER ==
[~2024-06-26] VITALS: Ht 170.2 cm; Wt 90.9 kg
[~2024-06-26 14:59] MED LIST changes: -HYDR12.55; +HYDR12.55 PO; -ROSU40TA47; +ROSU40TA47 PO; +SPIR25TA8 PO
--- NOTE | 2024-06-26 15:14 | ED.PDOC ---
HPI Comments 68-year-old female with PMHx HTN brought in by EMS presents with a chief complaint of chest pain x onset last night. Patient states that her pain is localized to her left chest, nonradiating, is consistent in timing, and sharp in nature. Patient denies any strenuous activity prior to onset of chest pain. Patient has not tried taking any medications for this pain. Patient also has bilateral lower leg edema. EKG upon arrival shows NSR with rate of 64, no STEMI. No other symptoms or modifying factors present at this time. Time Seen by MD: 15:05 Primary Care Provider: LESVIA Reviewed Notes: Medications, Allergies Allergies: Coded Allergies: Sulfa Antibiotics (Verified Allergy, Unknown, 11/25/23) Home Meds Active Scripts Meclizine HCl (Meclizine) 25 Mg Chw, 25 MG PO BID for 5 Days, #10 CHW Prov:TREVON MAURER MD 06/18/24 Tramadol HCl (Tramadol HCl) 50 Mg Tab, 50 MG PO Q6HP PRN, #30 TAB Prov:RUSSELL CORONA MD 06/11/24 Hydralazine HCl (Hydralazine HCl) 25 Mg Tab, 25 MG PO TID, #90 TAB 5 Refills Prov:RUSSELL CORONA MD 06/11/24 Reported Medications Rosuvastatin Calcium (Rosuvastatin Calcium) 40 Mg Tab, 1 DAILY 06/10/24 Aspirin (Aspir-Low) 81 Mg Tab, 81 MG PO DAILY for 30 Days, MG 06/10/24 Hydrochlorothiazide (Hydrochlorothiazide) 12.5 Mg Tab, 1 DAILY 06/10/24 Gabapentin (Gabapentin) 100 Mg Cap, 1 CAP PO TID 02/29/24 Olmesartan Medoxomil (Olmesartan Medoxomil) 40 Mg Tab, 1 TAB PO DAILY 02/29/24 Information Source: Patient, Emergency Med Personnel Mode of Arrival: EMS Severity: Moderate Timing: Hours Duration: Since onset Prehospital treatment: None Location: Chest (L) Radiation: No Radiation Quality: Sharp Onset: At Rest Cardiac Risk Factors: HTN PE Risk Factors: None History of: None Past Medical History PAST MEDICAL HISTORY: AFIB, Asthma, CAD, CHF, High Lipids, HTN Surgical History: Denies all surgeries EMPLOYEE ADVISER History: No 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 History Family History Family History: Reviewed,noncontributory to illness, No family hx of Cancer, No family hx of DM, No family hx of Heart asya, No family hx of HTN, No family hx ofKidney asya, No family hx of Liver asya, No family hx of Lung asya, No family hx of Stroke Social History Smoker: Non-Smoker Alcohol: Denies ETOH Use Drugs: Denies Drug Use Lives In: Home Constitutional: denies: chills, diaphoresis, fatigue, fever, malaise, sweats, weakness, others EENTM: denies: blurred vision, double vision, ear bleeding, ear discharge, ear drainage, ear pain, ear ringing, eye pain, eye redness, hearing loss, mouth pain, mouth swelling, nasal discharge, nose bleeding, nose congestion, nose pain, photophobia, tearing, throat pain, throat swelling, voice changes, others Respiratory: denies: cough, hemoptysis, orthopnea, SOB at rest, shortness of breath, SOB with excertion, stridor, wheezing, others Cardiovascular: reports: chest pain; denies: dizzy spells, diaphoresis, Dyspnea on exertion, edema, irregular heart beat, left arm pain, lightheadedness, palpitations, PND, syncope, others Gastrointestinal: denies: abdomen distended, abdominal pain, blood streaked bowels, constipated, diarrhea, dysphagia, difficulty swallowing, hematemesis, melena, nausea, poor appetite, poor fluid intake, rectal bleeding, rectal pain, vomiting, others Genitourinary: denies: abnormal vagina bleeding, burning, dyspareunia, dysuria, flank pain, frequency, hematuria, incontinence, pain, , vagina discharge, urgency, others Neurological: denies: dizziness, fainting, headache, left sided numbness, left sided weakness, numbness, paresthesia, pre-existing deficit, right sided numbness, right sided weakness, seizure, speech problems, tingling, tremors, weakness, others Musculoskeletal: denies: back pain, gout, joint pain, joint swelling, muscle pain, muscle stiffness, neck pain, others Integumetry: denies: bruises, change in color, change in hair/nails, dryness, laceration, lesions, lumps, rash, wounds, others Allergic/Immunocompromised: denies: Difficulty Healing, Frequent Infections, Hives, Itching, others Hematologic/Lymphatic: denies: anemia, blood clots, easy bleeding, easy bruising, swollen glands, others Endocrine: denies: excessive hunger, excessive sweating, excessive thirst, excessive urination, flushing, intolerance to cold, intolerance to heat, unexplained weight gain, unexplained weight loss, others Psychiatric: denies: anxiety, bipolar disorder, depression, hopeless, panic disorder, schizophrenia, sleepless, suicidal, others All Other Systems: Reviewed and Negative Physical Exam General Appearance: Moderate Distress, Normal HEENT: Normal ENT Inspection, Pharynx Normal, TMs Normal Neck: Full Range of Motion, Non-Tender, Normal, Normal Inspection Respiratory: Chest Non-Tender, Lungs Clear, No Accessory Muscle Use, No Respiratory Distress, Normal Breath Sounds Cardiovascular: No Edema, No JVD, No Murmur, No Gallop, Normal Peripheral Pulses, Regular Rate/Rhythm Breast Exam: Deferred Gastrointestinal: No Organomegaly, Non Tender, No Pulsatile Mass, Normal Bowel Sounds, Soft Genitalia: Deferred Pelvic: Deferred Rectal: Deferred Extremities: No calf tenderness, Normal capillary refill, Normal range of motion, Non-tender, No pedal edema, Swelling (Lymphedema bilateral lower extremity) Musculoskeletal : Apperance: Normal Neurologic: Alert, ink blender II-XII nml as Tested, No Motor Deficits, Normal Affect, Normal Mood, No Sensory Deficits Cerebellar Function: NOT DONE Reflexes: NOT DONE Skin: Dry, Normal Color, Warm Peripheral Pulses: 3+ Radial (R), 3+ Radial (L) Lymphatic: No Adenopathy EKG EKG : Pulse Rate (adult): 64 Barco: Normal Cardiac Rhythm: NSR Block: None Hypertrophy: None ST: Normal Was a procedure done? Was a procedure done?: No CP Differential Dx Differential Diagnosis: A-fib, A-Flutter, Angina, Anxiety / Panic Attack, Atrial Dysrhythmia, Electrolyte Disorder X-Ray, Labs, Meds, VS Vital Signs Date Time Temp Pulse Resp B/P (MAP) Pulse Ox O2 Delivery O2 Flow Rate FiO2 06/26/24 15:14 64 Lab Test 06/26/24 15:20 Range/Units White Blood Count 7.9 # 4.4-10.8 10^3/uL Red Blood Count 4.98 4.0-5.20 10^6/uL Hemoglobin 15.6 12.2-16.2 g/dL Hematocrit 46.4 H 36.0-46.0 % Mean Corpuscular Volume 93.3 80.0-100.0 fL Mean Corpuscular Hemoglobin 31.5 28.0-32.0 pg Mean Corpuscular Hemoglobin Concent 33.7 32.0-36.0 g/dL Red Cell Distribution Width 13.8 11.8-14.3 % Platelet Count 192 140-450 10^3/uL Mean Platelet Volume 11.5 H 6.9-10.8 fL Neutrophils (%) (Auto) 67.9 37.0-80.0 % Lymphocytes (%) (Auto) 21.8 10.0-50.0 % Monocytes (%) (Auto) 9.0 0.0-12.0 % Eosinophils (%) (Auto) 0.8 0.0-7.0 % Basophils (%) (Auto) 0.5 0.0-2.0 % Neutrophils # (Auto) 5.4 1.6-8.6 10 ^3/uL Lymphocytes # (Auto) 1.7 0.4-5.4 10 ^3/uL Monocytes # (Auto) 0.7 0-1.3 10 ^3/uL Eosinophils # (Auto) 0.1 0-0.8 10 ^3/uL Basophils # (Auto) 0 0-0.2 10 ^3/uL Nucleated Red Blood Cells 0.1 % Sodium Level Pending Potassium Level Pending Chloride Level Pending Carbon Dioxide Level Pending Anion Gap Pending Blood Urea Nitrogen Pending Creatinine Pending Glomerular Filtration Rate Calc Pending BUN/Creatinine Ratio Pending Serum Glucose Pending Calcium Level Pending Total Bilirubin Pending Aspartate Amino Transferase (AST) Pending Alanine Aminotransferase (ALT) Pending Alkaline Phosphatase Pending Troponin I High Sensitivity Pending Total Protein Pending Albumin Pending Patient alert. Complaining of chest pain. Vitals stable. Answering questions. EKG reviewed does not show any acute changes. Risk factors for coronary artery disease. Echocardiogram. Cardiology consultation. Explained to the patient. Continue cardiac monitoring. Time of 1ST Reevaluation: 15:35 Reevaluation 1ST: Unchanged Patient Education/Counseling: Diagnosis, Treatment, Prognosis Family Education/Counseling: Diagnosis, Treatment, Prognosis Departure 1 Departure Time of Disposition: 15:26 Impression: Primary Impression: Chest pain of unknown etiology Disposition: ADMITTED INPATIENT Admit to: Med Surg Condition: Guarded Critical Care Note Critical Care Time?: No Stability Stability form required: No Heart Score Heart Score: Heart Score Response (Comments) Value History Slightly Suspicious 0 EKG Normal 0 Age >65 2 Risk Factors >3 or Hx ASHD 2 Troponin Normal limit 0 Total 4 I personally scribed for SHAGGY DEVRIES MD ([email or web address]) on 06/26/24 at 15:14. Electronically submitted by Danish Best ([email or web address]). SHAGGY DEVRIES MD Jun 26, 2024 15:14
[2024-06-26 15:40] LABS: Basophils # (auto) 0 10 ^3/uL (0-0.2); Basophils % (auto) 0.5 % (0.0-2.0); Eosinophils # (auto) 0.1 10 ^3/uL (0-0.8); Eosinophils % (auto) 0.8 % (0.0-7.0); Hematocrit 46.4 % (36.0-46.0); Hemoglobin 15.6 g/dL (12.2-16.2); Lymphocytes # (auto) 1.7 10 ^3/uL (0.4-5.4); Lymphocytes % (auto) 21.8 % (10.0-50.0); Mean Corpuscular Hemoglobin 31.5 pg (28.0-32.0); Mean Corpuscular Hgb Conc. 33.7 g/dL (32.0-36.0); Mean Corpuscular Volume 93.3 fL (80.0-100.0); Monocytes # (auto) 0.7 10 ^3/uL (0-1.3); Neutrophils # (auto) 5.4 10 ^3/uL (1.6-8.6); Neutrophils % (auto) 67.9 % (37.0-80.0); Nucleated Red Blood Cells % 0.1 %; Platelet Count (auto) 192 10^3/uL (140-450); Red Blood Cells 4.98 10^6/uL (4.0-5.20); Red Cell Distribution Width 13.8 % (11.8-14.3); White Blood Cell 7.9 10^3/uL (4.4-10.8)
[2024-06-26 16:05] LABS: Alanine Aminotransferase 17 U/L (7-40); Albumin 4.8 g/dL (3.2-4.8); Alkaline Phosphatase 69 U/L (46-116); Anion Gap 11 (5-15); Aspartate Aminotransferase 26 U/L (13-40); BUN/Creatinine Ratio 22.3 (10.0-20.0); Blood Urea Nitrogen 21 mg/dL (9-23); Carbon Dioxide 24 mmol/L (20-31); Chloride 105 mmol/L (98-107); Potassium 4.2 mmol/L (3.5-5.1); Sodium 140 mmol/L (136-145)
[2024-06-26 16:06] LABS: Bilirubin, Total 0.7 mg/dL (0.2-1.0); Total Protein 6.7 g/dL (5.7-8.2)
[2024-06-26 16:10] LABS: Calcium 10.8 mg/dL (8.7-10.4); Glucose 108 mg/dL (74-106)
--- NOTE | 2024-06-26 17:18 | DVH ---
EXAM: XR Chest, 1 View CLINICAL INDICATION: sob TECHNIQUE: Frontal view of the chest. COMPARISON: XY CHEST PORTABLE on DOS: 06/22/24, XY CHEST PORTABLE on DOS: 05/21/24, XY CHEST PORTABLE on DOS: 02/20/24, XY CHEST XRAY 1 VIEW on DOS: 01/19/24 FINDINGS: LUNGS AND PLEURAL SPACES: Unremarkable. No consolidation. No pneumothorax. HEART: Unremarkable. No cardiomegaly. MEDIASTINUM: Unremarkable. Normal mediastinal contour. BONES/JOINTS: Unremarkable. No acute fracture. OTHER FINDINGS: . None. ... IMPRESSION: No acute cardiopulmonary process.
--- NOTE | 2024-06-26 19:08 | ECG ---
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
[2024-06-26] MEDS ORDERED: ONDANSETRON HCL 4 MG/2 ML VIAL IV PRN (20:00)
[2024-06-26] MEDS ORDERED: NITROGLYCERIN 0.4 MG SL TAB SL PRN (20:00)
[2024-06-26] MEDS ORDERED: MORPHINE SULFATE INJ 2 MG/ml SYRG IV PRN (20:00)
[2024-06-26 23:33] VITALS: PULSE 70; RESP 18; O2SAT 97
[2024-06-26] MEDS: hydrALAZINE HCL 25 MG TAB PO SCH (23:43)
[2024-06-26] MEDS: GABAPENTIN 100 MG CAP PO SCH (23:43)
[2024-06-26] MEDS: ATORVASTATIN 20 MG TAB PO SCH (23:43)
--- NOTE | 2024-06-27 05:22 | DVHHP2 ---
History of Present Illness Reason for Visit: Chest pain History of Present Illness 68-year-old female presents for evaluation of chest pain. Patient reports a one day history of left-sided chest pain that is nonradiating. She describes it as sharp in nature with associated shortness for breath. Patient also reports bilateral lower extremity edema which is chronic. Denies fever or chills. No other acute complaints. Past Medical History Dyslipidemia, hypertension, CHF, CAD, asthma, AFib Past Surgical History Denies Family History Noncontributory Smoke: No ALCOHOL: none Drugs: None Lives: with Family Review of Systems Review of Systems Review of systems are currently negative otherwise addressed in HPI. Allergies: Coded Allergies: Sulfa Antibiotics (Verified Allergy, Unknown, 11/25/23) Medications Current Medications Medications Dose Ordered Sig/Alfonso Route Start Time Stop Time Status Last Admin Dose Admin Gabapentin 100 mg TID PO 06/26/24 22:00 06/26/24 23:43 100 MG Atorvastatin Calcium 40 mg HS PO 06/26/24 22:00 06/26/24 23:43 40 MG Hydrochlorothiazide 12.5 mg DAILY PO 06/27/24 10:00 Hydralazine HCl 25 mg Q8HR PO 06/26/24 22:00 Losartan Potassium 100 mg DAILY PO 06/27/24 10:00 Aspirin 81 mg DAILY PO 06/27/24 10:00 Ondansetron HCl 4 mg Q4HP PRN IV 06/26/24 20:00 Enoxaparin Sodium 40 mg DAILY SC 06/27/24 10:00 Acetaminophen 650 mg Q6HP PRN PO 06/26/24 20:00 Nitroglycerin 0.4 mg Q5MINP PRN SL 06/26/24 20:00 Morphine Sulfate 2 mg Q30M PRN IV 06/26/24 20:00 Exam Vital Signs Vital Signs Date Time Temp Pulse Resp B/P (MAP) Pulse Ox O2 Delivery O2 Flow Rate FiO2 06/26/24 23:43 104/51 06/26/24 23:33 70 18 97 Room Air* 0 21 06/26/24 22:45 97.5 97.5 Exam Gen: 68-year-old female in mild distress Skin: Warm, dry, normal color and texture, no rash. HEENT: Normocephalic atraumatic, mucous membranes moist and pink. Neck: Cervical and supraclavicular nodes normal without enlargement, trachea is midline, thyroid gland is normal without masses. Pulmonary: Clear to auscultation and percussion bilaterally. Cardiac: Regular rate and rhythm. No murmur Abdomen: Soft, nontender, nondistended, bowel sounds present all 4 quadrants, no guarding, no rigidity, no organomegaly. Extremities: No cyanosis, clubbing, bilateral lower extremity lymphedema Neuro: Cranial nerves II through XII grossly intact, normal affect and speech, no focal motor deficits. Labs/Xrays ORDERING PHYSICIAN: RADHA HARRELL PROCEDURE(s): ECIDC - ECHO 2D MODE CARDIAC DOP REASON: hypertension ORDER NUMBER(s): [id number], ACCESSION NUMBER(s): [id number] APPROVED REPORT EXAM: Two-dimensional and M-mode echocardiogram with Doppler and color Doppler. Blood Pressure: 175/63 mmHg INDICATION Hypertension RISK FACTORS Height: 66, Weight: 186 DIMENSIONS LVDd 4.0 (3.8-5.7cm) LA (2D) 4.0 (1.9-4.0cm) Aortic Root 2.6 (2.0- 3.7cm) LVDs 2.9 (2.5-4.0cm) LA (MM) (1.9-4.0cm) Aortic Cusp Exc 1.2 (1.5- 2.0cm) EF (%) 55.0 (55-70%) Rt. Atrium 4.9 (1.9-4.0cm) Asc. Aorta cm IVSd 1.2 (0.7-1.1cm) RV (D) (1.8-2.4cm) PWd 1.3 (0.7-1.1cm) Mitral Valve Mitral Mitral Stenosis E wave 0.66m/s MV Mean GR. mmHg A wave 1.17m/s MV Peak GR. mmHg E/A ratio 0.6 2D MVA cm2 DECEL Time 241ms PRESS 1/2 Time 87ms IVRT ms Dop MVA 2.54cm2 Aortic Valve Aortic Valve Aortic Stenosis V1 1.80m/s AO Mean GR. 16mmHg V2 2.74m/s AO Peak GR. 30mmHg LVOT Diameter 1.4 (1.8-2.4cm) Doppler ERMA 1.01cm2 AI P 1/2 Time 514.78ms Pulmonic Valve V2 1.41m/s Tricuspid Valve TR Velocity 2.92m/s RVSP 42mmHg Conclusion Sinus rhythm. Biatrial enlargement with concentric LVH. Mild aortic sclerosis. Left ventricular function is preserved at 60% with normal RV function. Mild aortic insufficiency. Moderate tricuspid regurgitation. No pericardial effusion masses or vegetations ORDERING PHYSICIAN: SHAGGY DEVRIES MD PROCEDURE(s): CXRP - CHEST PORTABLE REASON: sob ORDER NUMBER(s): [id number], ACCESSION NUMBER(s): [id number] EXAM: XR Chest, 1 View CLINICAL INDICATION: sob TECHNIQUE: Frontal view of the chest. COMPARISON: XY CHEST PORTABLE on DOS: 06/22/24, XY CHEST PORTABLE on DOS: 05/21/24, XY CHEST PORTABLE on DOS: 02/20/24, XY CHEST XRAY 1 VIEW on DOS: 01/19/24 FINDINGS: LUNGS AND PLEURAL SPACES: Unremarkable. No consolidation. No pneumothorax. HEART: Unremarkable. No cardiomegaly. MEDIASTINUM: Unremarkable. Normal mediastinal contour. BONES/JOINTS: Unremarkable. No acute fracture. OTHER FINDINGS: . None. ... IMPRESSION: No acute cardiopulmonary process. Labs Test 06/26/24 19:20 06/26/24 15:20 Range/Units Troponin I High Sensitivity 9 </=34 ng/L White Blood Count 7.9 # 4.4-10.8 10^3/uL Red Blood Count 4.98 4.0-5.20 10^6/uL Hemoglobin 15.6 12.2-16.2 g/dL Hematocrit 46.4 H 36.0-46.0 % Mean Corpuscular Volume 93.3 80.0-100.0 fL Mean Corpuscular Hemoglobin 31.5 28.0-32.0 pg Mean Corpuscular Hemoglobin Concent 33.7 32.0-36.0 g/dL Red Cell Distribution Width 13.8 11.8-14.3 % Platelet Count 192 140-450 10^3/uL Mean Platelet Volume 11.5 H 6.9-10.8 fL Neutrophils (%) (Auto) 67.9 37.0-80.0 % Lymphocytes (%) (Auto) 21.8 10.0-50.0 % Monocytes (%) (Auto) 9.0 0.0-12.0 % Eosinophils (%) (Auto) 0.8 0.0-7.0 % Basophils (%) (Auto) 0.5 0.0-2.0 % Neutrophils # (Auto) 5.4 1.6-8.6 10 ^3/uL Lymphocytes # (Auto) 1.7 0.4-5.4 10 ^3/uL Monocytes # (Auto) 0.7 0-1.3 10 ^3/uL Eosinophils # (Auto) 0.1 0-0.8 10 ^3/uL Basophils # (Auto) 0 0-0.2 10 ^3/uL Nucleated Red Blood Cells 0.1 % Sodium Level 140 136-145 mmol/L Potassium Level 4.2 3.5-5.1 mmol/L Chloride Level 105 98-107 mmol/L Carbon Dioxide Level 24 20-31 mmol/L Anion Gap 11 5-15 Blood Urea Nitrogen 21 9-23 mg/dL Creatinine 0.94 # 0.550-1.02 mg/dL Glomerular Filtration Rate Calc 65 >90 mL/min BUN/Creatinine Ratio 22.3 H 10.0-20.0 Serum Glucose 108 H 74-106 mg/dL Calcium Level 10.8 H 8.7-10.4 mg/dL Total Bilirubin 0.7 0.2-1.0 mg/dL Aspartate Amino Transferase (AST) 26 13-40 U/L Alanine Aminotransferase (ALT) 17 7-40 U/L Alkaline Phosphatase 69 46-116 U/L Total Protein 6.7 5.7-8.2 g/dL Albumin 4.8 3.2-4.8 g/dL Assessment/Plan Assessment/Plan Assessment Unstable angina Hypertension Asthma Bilateral lower extremity lymphedema, chronic Plan Admit the patient to [facility] to the hospitalist Resume home medications Cardiology consultation Continue treatment per orders. Plan discussed with: Patient My Orders Orders - RADHA HARRELL AGACNP Procedure Category Date Status Time Gabapentin Capsule PHA 06/26/24 In Process (Neurontin Capsule) 22:00 Atorvastatin (Lipitor) PHA 06/26/24 In Process 22:00 Hydrochlorothiazide PHA 06/27/24 In Process Tablet (Hydrochlorot 10:00 Hydralazine Hcl PHA 06/26/24 In Process Tablet (Apresoline 22:00 Losartan Tablet PHA 06/27/24 In Process (Cozaar Tablet) 10:00 Aspirin Tablet PHA 06/27/24 In Process 10:00 Basic Metabolic Panel LAB 06/27/24 Logged 04:00 * Cardiology Consult CONS 06/26/24 Transmitted 19:56 Admit ADMIT 06/26/24 Transmitted 19:56 Ondansetron Hcl PHA 06/26/24 In Process (Zofran) 20:00 Enoxaparin Sodium PHA 06/27/24 In Process (Lovenox) 10:00 Cardiac DIET 06/27/24 Transmitted Diet-2gna,Lofat,Lochol Breakfast Condition: Stable REX 06/26/24 In Process 19:56 Acetaminophen Tablet PHA 06/26/24 In Process (Tylenol Tablet) 20:00 Bedrest With Bathroom REX 06/26/24 In Process Privileg 19:56 Nitroglycerin PHA 06/26/24 In Process Sublingual (Ntrostat 20:00 Morphine Sulfate PHA 06/26/24 In Process Injection 20:00 Stat Ekg For Chest REX 06/26/24 In Process Pain 19:56 Notify Md Of Changes REX 06/26/24 In Process From Base 19:56 Desktop Technician For REX 06/26/24 In Process 24 Hours 19:56 Emergency Dysrhythmia [facility] 06/26/24 In Process Protocol 19:56 Rhythm Strips Once REX 06/26/24 In Process Every Shift 19:56 Oxygen By Nasal RT 06/26/24 Transmitted Cannula 19:56 Date of Service: Jun 26, 2024 Billing Provider: RADHA HARRELL Common Visit Codes: [id number] INP/OBS CARE (MOD) RADHA HARRELL Jun 27, 2024 05:22
[2024-06-27 05:58] LABS: Anion Gap 11 (5-15); Calcium 10.3 mg/dL (8.7-10.4); Carbon Dioxide 23 mmol/L (20-31); Potassium 4.3 mmol/L (3.5-5.1); Sodium 141 mmol/L (136-145)
[2024-06-27 06:04] LABS: BUN/Creatinine Ratio 15.2 (10.0-20.0); Glucose 93 mg/dL (74-106)
[2024-06-27 06:18] LABS: Blood Urea Nitrogen 25 mg/dL (9-23); Chloride 107 mmol/L (98-107)
--- NOTE | 2024-06-27 07:11 | ECG ---
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
[2024-06-27] MEDS ORDERED: SODIUM CHLORIDE 0.9% 500 ML IV ONE (08:00)
[2024-06-27 08:55] LABS: Magnesium 2.2 mg/dL (1.6-2.6)
[2024-06-27 09:57] VITALS: BP 120/52; PULSE 59; RESP 18; TEMP 96.9; O2SAT 100
[2024-06-27] MEDS ORDERED: LOSARTAN POTASSIUM 50 MG TAB PO SCH (10:00)
[2024-06-27] MEDS ORDERED: hydroCHLOROthiazide 25 MG TAB PO SCH (10:00)
--- NOTE | 2024-06-27 10:17 | DVHCONRES ---
Date Seen: Jun 27, 2024 Resident Creating Document: HUSSEIN REECE RESIDENT Referring Physician JESUS Watt Reason for Consultation Chest pain History of Present Illness This is a 68-year-old female who presents to the ED with chief complain of chest pain. She has a past medical history relevant for dyslipidemia, hypertension, CHF, CAD, asthma, questionable atrial fibrillation, chronic lymphedema, valvulopathy. Past surgical history of ankle repair. Family history: Heart disease in grandmother and mother Social history: Denies smoking, alcohol or illicit drug abuse Patient states that since yesterday at 1:00 p.m. she started having moderate chest pain, pressure-like, left-sided, nonradiating, with no relieving or exacerbating factors, associated with dizziness, denies any shortness of breath, chills, fevers, lightheadedness, abdominal pain, nausea, vomiting, denies any recent sick contacts. In the ED patient received Lipitor, gabapentin. Initial vital signs show a heart rate 65, a blood pressure of 118/51, however later on blood pressure seem low at 97/43. Blood work revealed an GENEVIEVE, given raise in creatinine. Troponins were negative x4 EKG shows a rate of 64, normal axis, sinus rhythm, no acute ST, nonspecific T- wave changes Chest x-ray was unremarkable On my assessment, patient stated that she continues to have chest pressure, still moderate, it was reproducible with palpation, she points it on the left side of the chest and also left upper quadrant of the abdomen. She is currently on room air, blood pressure is borderline low, she denies any other significant symptoms. Family History: Cardiovascular disease family hx1, , Age: 95 Allergies: Coded Allergies: Sulfa Antibiotics (Verified Allergy, Unknown, 11/25/23) Home Meds Active Scripts Meclizine HCl (Meclizine) 25 Mg Chw, 25 MG PO BID for 5 Days, #10 CHW Prov:TREVON MAURER MD 06/18/24 Tramadol HCl (Tramadol HCl) 50 Mg Tab, 50 MG PO Q6HP PRN, #30 TAB Prov:RUSSELL CORONA MD 06/11/24 Hydralazine HCl (Hydralazine HCl) 25 Mg Tab, 25 MG PO TID, #90 TAB 5 Refills Prov:RUSSELL CORONA MD 06/11/24 Reported Medications Rosuvastatin Calcium (Rosuvastatin Calcium) 40 Mg Tab, 1 DAILY 06/10/24 Aspirin (Aspir-Low) 81 Mg Tab, 81 MG PO DAILY for 30 Days, MG 06/10/24 Hydrochlorothiazide (Hydrochlorothiazide) 12.5 Mg Tab, 1 DAILY 06/10/24 Gabapentin (Gabapentin) 100 Mg Cap, 1 CAP PO TID 02/29/24 Olmesartan Medoxomil (Olmesartan Medoxomil) 40 Mg Tab, 1 TAB PO DAILY 02/29/24 Current Medications Current Medications Medications (Trade) Dose Ordered Sig/Alfonso Route PRN Reason Start Time Stop Time Status Last Admin Gabapentin (Neurontin Capsule) 100 mg TID PO 06/26/24 22:00 06/27/24 06:49 Atorvastatin Calcium (Lipitor) 40 mg HS PO 06/26/24 22:00 06/26/24 23:43 Hydrochlorothiazide (hydroCHLOROthiazide TABLET) 12.5 mg DAILY PO 06/27/24 10:00 06/27/24 07:56 DC Hydralazine HCl (Apresoline Tablet) 25 mg Q8HR PO 06/26/24 22:00 06/27/24 07:56 DC Losartan Potassium (Cozaar Tablet) 100 mg DAILY PO 06/27/24 10:00 06/27/24 07:56 DC Aspirin 81 mg DAILY PO 06/27/24 10:00 Ondansetron HCl (Zofran) 4 mg Q4HP PRN IV NAUSEA / VOMITING 06/26/24 20:00 Enoxaparin Sodium (Lovenox) 40 mg DAILY SC 06/27/24 10:00 Acetaminophen (Tylenol Tablet) 650 mg Q6HP PRN PO PAIN SCALE 1-3 OR TEMP>100.4 06/26/24 20:00 Nitroglycerin (Ntrostat Sublingual) 0.4 mg Q5MINP PRN SL FOR CHEST PAIN 06/26/24 20:00 Morphine Sulfate 2 mg Q30M PRN IV FOR CHEST PAIN 06/26/24 20:00 Review of Systems Constitutional: Patient denies fevers, chills, sweats and weight changes. Eyes: Patient denies any visual symptoms. Ears, Nose, and Throat: No difficulties with hearing. No symptoms of rhinitis or sore throat. Cardiovascular: Chest pain Respiratory: No dyspnea on exertion, no wheezing or cough. GI: No nausea, vomiting, diarrhea, constipation, abdominal pain, hematochezia or melena. : No urinary hesitancy or dribbling. No nocturia or urinary frequency. No abnormal urethral discharge. Musculoskeletal: No myalgias, arthralgias or edema. Neurologic: No chronic headaches, no seizures. Patient denies numbness, tingling or weakness. Psychiatric: Patient denies problems with mood disturbance. No problems with anxiety. Endocrine: No excessive urination or excessive thirst. Dermatologic: Patient denies any rashes or skin changes. Vital Signs Vital Signs Date Time Temp Pulse Resp B/P (MAP) Pulse Ox O2 Delivery O2 Flow Rate FiO2 06/27/24 08:44 60 15 91/57 (68) 98 06/26/24 23:33 Room Air* 0 21 06/26/24 22:45 97.5 97.5 Physical Exam General: Awake, alert, comfortable appearing, in no acute distress. HEENT: Head is normocephalic and atraumatic. Pupils are equal, round, and reactive to light. Extraocular muscles are intact. No nasal discharge. No facial trauma. Intraoral exam shows moist mucous membranes with no tonsillar enlargement or exudate. Neck: Supple with no cervical lymphadenopathy No meningismus. No goiter. Heart: Regular rate without murmur, rub, or gallop. Lungs: Equal breath sounds bilaterally with no wheezing, rales, or rhonchi. There is no chest wall tenderness or instability. Abdomen: No external sign of injury. Bowel sounds are present. Abdomen is soft, nontender. No rebound, no guarding, no rigidity. There are no palpable masses. There is no flank pain on exam. Extremities: Chronic lymphedema, plus two pitting edema up to the thighs Skin: No rash. Neurologic: Cranial nerves II-XII intact without motor, sensory, or cerebellar deficit, no asterixis. Labs/Diagnostic Data Labs Test 06/27/24 05:20 06/26/24 15:20 Range/Units Sodium Level 141 136-145 mmol/L Potassium Level 4.3 3.5-5.1 mmol/L Chloride Level 107 98-107 mmol/L Carbon Dioxide Level 23 20-31 mmol/L Anion Gap 11 5-15 Blood Urea Nitrogen 25 H 9-23 mg/dL Creatinine 1.65 #H 0.550-1.02 mg/dL Glomerular Filtration Rate Calc 33 >90 mL/min BUN/Creatinine Ratio 15.2 10.0-20.0 Serum Glucose 93 74-106 mg/dL Calcium Level 10.3 8.7-10.4 mg/dL Magnesium Level 2.2 1.6-2.6 mg/dL Troponin I High Sensitivity 8 </=34 ng/L Triglycerides Level 77 < 150 mg/dL Cholesterol Level 82 < 200 mg/dL LDL Cholesterol 26 < 100 mg/dL HDL Cholesterol 38 L 40-59 mg/dL White Blood Count 7.9 # 4.4-10.8 10^3/uL Red Blood Count 4.98 4.0-5.20 10^6/uL Hemoglobin 15.6 12.2-16.2 g/dL Hematocrit 46.4 H 36.0-46.0 % Mean Corpuscular Volume 93.3 80.0-100.0 fL Mean Corpuscular Hemoglobin 31.5 28.0-32.0 pg Mean Corpuscular Hemoglobin Concent 33.7 32.0-36.0 g/dL Red Cell Distribution Width 13.8 11.8-14.3 % Platelet Count 192 140-450 10^3/uL Mean Platelet Volume 11.5 H 6.9-10.8 fL Neutrophils (%) (Auto) 67.9 37.0-80.0 % Lymphocytes (%) (Auto) 21.8 10.0-50.0 % Monocytes (%) (Auto) 9.0 0.0-12.0 % Eosinophils (%) (Auto) 0.8 0.0-7.0 % Basophils (%) (Auto) 0.5 0.0-2.0 % Neutrophils # (Auto) 5.4 1.6-8.6 10 ^3/uL Lymphocytes # (Auto) 1.7 0.4-5.4 10 ^3/uL Monocytes # (Auto) 0.7 0-1.3 10 ^3/uL Eosinophils # (Auto) 0.1 0-0.8 10 ^3/uL Basophils # (Auto) 0 0-0.2 10 ^3/uL Nucleated Red Blood Cells 0.1 % Total Bilirubin 0.7 0.2-1.0 mg/dL Aspartate Amino Transferase (AST) 26 13-40 U/L Alanine Aminotransferase (ALT) 17 7-40 U/L Alkaline Phosphatase 69 46-116 U/L Total Protein 6.7 5.7-8.2 g/dL Albumin 4.8 3.2-4.8 g/dL Assessment Chest pain, unstable angina, musculoskeletal, gastritis History of hypertension, currently soft blood pressures GENEVIEVE likely prerenal hemodynamically mediated Questionable history of AFib Chronic diastolic CHF History of coronary artery disease Mild aortic sclerosis Mild aortic insufficiency Moderate tricuspid regurgitation Dyslipidemia History of asthma Obesity Plan/Recommendation Held blood pressure medications given soft blood pressure and likely development of hemodynamically mediated GENEVIEVE Continue telemetry Previous echo from June 10, 2024 shows an ejection fraction of 60%, mild aortic sclerosis, mild aortic insufficiency, moderate tricuspid regurgitation, biatrial enlargement on concentric LVH, RVSP of 42 Continue aspirin 81 mg p.o. q.d. Continue antilipidemic Reviewed EKG, no ST changes, nonspecific T-wave abnormalities, troponins within normal limits 4x Ordered stress test with lexiscan given risk factors and recurrent chest pain Case was discussed with Dr. You PATIENT SEEN WITH CV TEAM PT SEEN BY 5 DAYS AGO FOR SEVERE HTN BP IS LOW NOW CHECK STRESS MPI ACS RULED OUT BUT MULTIPLE ER VISITS Plan discussed with: Patient HUSSEIN REECE RESIDENT Jun 27, 2024 10:17 MADONNA YOU MD Jun 27, 2024 13:43
[2024-06-27] MEDS: ASPirin 81 mg TAB PO SCH (10:49)
[2024-06-27] MEDS: ACETAMINOPHEN 325 MG TAB PO PRN (10:49)
[2024-06-27] MEDS: ENOXAPARIN SOD 40 MG/0.4 ML SYRINGE SC SCH (10:50)
[2024-06-27 11:04] VITALS: BP 111/55; PULSE 55; RESP 16; TEMP 97.4; O2SAT 99
--- NOTE | 2024-06-27 11:35 | DVHPN2 ---
Subjective She was admitted for chest pain Her blood pressure was low Changes from previous H/P or p: Changes Objective Vitals Vital Signs Date Time Temp Pulse Resp B/P (MAP) Pulse Ox O2 Delivery O2 Flow Rate FiO2 06/27/24 11:04 55 16 99 Room Air* 0 21 06/27/24 11:04 97.4 111/55 (73) 97.4 General Appearance: Alert, Oriented X3 Lungs: Clear to auscultation, Normal air movement Abdomen: Normal bowel sounds, Soft, No tenderness Extremities: No edema Medications Current Medications Medications Dose Ordered Sig/Alfonso Route Start Time Stop Time Status Last Admin Dose Admin Gabapentin 100 mg TID PO 06/26/24 22:00 06/27/24 06:49 100 MG Atorvastatin Calcium 40 mg HS PO 06/26/24 22:00 06/26/24 23:43 40 MG Aspirin 81 mg DAILY PO 06/27/24 10:00 06/27/24 10:49 81 MG Ondansetron HCl 4 mg Q4HP PRN IV 06/26/24 20:00 Enoxaparin Sodium 40 mg DAILY SC 06/27/24 10:00 06/27/24 10:50 40 MG Acetaminophen 650 mg Q6HP PRN PO 06/26/24 20:00 06/27/24 10:49 650 MG Nitroglycerin 0.4 mg Q5MINP PRN SL 06/26/24 20:00 Morphine Sulfate 2 mg Q30M PRN IV 06/26/24 20:00 Laboratory Results Laboratory Tests 06/26/24 15:20 06/27/24 05:20 Chemistry Test 06/26/24 15:20 06/27/24 05:20 Albumin 4.8 g/dL (3.2-4.8) Calcium Level 10.8 mg/dL (8.7-10.4) H 10.3 mg/dL (8.7-10.4) Total Protein 6.7 g/dL (5.7-8.2) Magnesium Level 2.2 mg/dL (1.6-2.6) Lipid panel Test 06/27/24 05:20 Cholesterol Level 82 mg/dL (< 200) HDL Cholesterol 38 mg/dL (40-59) L Triglycerides Level 77 mg/dL (< 150) LFT Test 06/26/24 15:20 Alanine Aminotransferase (ALT) 17 U/L (7-40) Alkaline Phosphatase 69 U/L (46-116) Aspartate Amino Transferase (AST) 26 U/L (13-40) Total Bilirubin 0.7 mg/dL (0.2-1.0) Assessment/Plan Assessment/Plan Atypical chest pain, most likely musculoskeletal Hypotension Acute kidney injury due to vasomotor nephropathy History of hypertension Diastolic heart failure History of CAD Dyslipidemia Chronic bilateral lower extremity lymphedema Obesity Plan Discontinue the blood pressure medications for now Give IV fluids Monitor the kidney function Aspirin Lipitor Plan discussed with: Patient Date of Service: Jun 27, 2024 Billing Provider: RUSSELL CORONA MD Common Visit Codes: NOT BILLABLE RUSSELL CORONA MD Jun 27, 2024 11:35
[2024-06-27 11:56] VITALS: BP 111/55; PULSE 55; RESP 16; TEMP 97.4; O2SAT 99
[2024-06-27] MEDS: REGADENOSON 0.4 MG/5 ML SYRG IV ONE ×2 (13:00→13:14)
--- NOTE | 2024-06-27 15:46 | DVHSR ---
APPROVED REPORT Exam: Nuclear Stress Test BMI: 0 Stress Test Details HR Max Heart Rate (APMHR): 150.336810 bpm Target HR (85% APMHR): 127.946777 bpm BP ECG Stress ECG Conclusion lvef 57% no severe ischemia noted GI artifact which is fixed inferior wall , clinical correlate NM EXAM: Myocardial Perfusion REST/STRESS Imaging Protocol: Rest Tc-99m/Stress Tc-99m 1 day Resting Data Rest SPECT myocardial perfusion imaging was performed in supine position 60 minutes following the int ravenous injection of 11.7 mCi of Tc-99m Sestamibi. Time of rest injection: 1232 Time of rest imagin Administration Route: IV Administration Site: Left Arm Pharmacologic Stress Pharmacologic stress test was performed by injecting Regadenoson 0.4 mg IV push followed by the intra venous injection of 32.3 mCi of Tc-99m Sestamibi. Time of stress injection: 1314 Time of stress imagin Administration Route: IV Administration Site: Left Arm Gated Stress SPECT was performed 60 minutes after stress injection. The images were gated to evaluate regional wall motion and calculate left ventricular ejection fracti on. Stress only was performed in the Supine position. Nuclear Conclusion Nuclear Findings: negative for ischemia lvef 57% no severe ischemia noted GI artifact which is fixed inferior wall , clinical correlate
[2024-06-27] MEDS: SODIUM CHLORIDE 0.9% 1,000 ML IV SCH (15:53)
[2024-06-27 16:56] VITALS: BP 140/75; PULSE 65; RESP 16; TEMP 97.3; O2SAT 99
[2024-06-27 20:00] VITALS: PULSE 62; RESP 18; O2SAT 98
[2024-06-27 20:26] LABS: Urine Bacteria FEW /hpf (None Seen); Urine Blood Negative /uL (Negative); Urine Clarity Clear (Clear); Urine Color Light-Yellow (Yellow); Urine Hyaline Cast FEW /lpf (0 - 2); Urine Mucus FEW (None Seen); Urine Protein, UAD Negative (Negative); Urine Squamous Epithelial Cell FEW /hpf (<5); Urine Urobilinogen Normal (Negative); Urine WBC 8 /HPF (0-5)
[2024-06-27 20:38] LABS: Amphetamine Screen, Urine Neg (NEGATIVE); Barbiturate Scree,Urine Neg (NEGATIVE); Benzodiazephine Screen, Urine Neg (NEGATIVE); Cannabinoid Screen, Urine Neg (NEGATIVE); Cocaine Screen, Urine Neg (NEGATIVE); Opiate Scree,Urine Neg (NEGATIVE); Phencyclidine Screen, Urine Neg (NEGATIVE)
[2024-06-27 21:00] VITALS: BP 98/78; PULSE 62; RESP 18; TEMP 97.5; O2SAT 98
[2024-06-28 01:00] VITALS: BP 112/60; PULSE 58; RESP 18; TEMP 97.7; O2SAT 96
[2024-06-28 05:00] VITALS: BP 109/54; PULSE 52; RESP 18; TEMP 97.6; O2SAT 98
[2024-06-28] MEDS: HYDROcodone-ACET 5/325MG TAB PO PRN (05:25)
[2024-06-28 07:29] LABS: Alanine Aminotransferase 13 U/L (7-40); Albumin 3.7 g/dL (3.2-4.8); Alkaline Phosphatase 56 U/L (46-116); Anion Gap 8 (5-15); Aspartate Aminotransferase 17 U/L (13-40); BUN/Creatinine Ratio 27.1 (10.0-20.0); Bilirubin, Total 0.3 mg/dL (0.2-1.0); Blood Urea Nitrogen 29 mg/dL (9-23); Calcium 9.5 mg/dL (8.7-10.4); Carbon Dioxide 25 mmol/L (20-31); Chloride 109 mmol/L (98-107); Glucose 95 mg/dL (74-106); Magnesium 2.1 mg/dL (1.6-2.6); Potassium 4.2 mmol/L (3.5-5.1); Sodium 142 mmol/L (136-145)
[2024-06-28 07:32] LABS: Total Protein 5.4 g/dL (5.7-8.2)
[2024-06-28 09:00] VITALS: BP 119/44; PULSE 58; RESP 16; TEMP 97.4; O2SAT 98
--- NOTE | 2024-06-28 12:37 | DVHDS2 ---
Discharge Summary Date of Admission Jun 26, 2024 at 19:56 Date of Discharge: Jun 28, 2024 Labs/Diagnostic Data: Laboratory Results Test 06/28/24 06:48 06/27/24 20:08 06/27/24 05:20 06/26/24 15:20 Sodium Level 142 mmol/L (136-145) Potassium Level 4.2 mmol/L (3.5-5.1) Chloride Level 109 mmol/L (98-107) Carbon Dioxide Level 25 mmol/L (20-31) Anion Gap 8 (5-15) Blood Urea Nitrogen 29 mg/dL (9-23) Creatinine 1.07 mg/dL (0.550-1.02) Glomerular Filtration Rate Calc 56 mL/min (>90) BUN/Creatinine Ratio 27.1 (10.0-20.0) Serum Glucose 95 mg/dL (74-106) Calcium Level 9.5 mg/dL (8.7-10.4) Magnesium Level 2.1 mg/dL (1.6-2.6) Total Bilirubin 0.3 mg/dL (0.2-1.0) Aspartate Amino Transferase (AST) 17 U/L (13-40) Alanine Aminotransferase (ALT) 13 U/L (7-40) Alkaline Phosphatase 56 U/L (46-116) Total Protein 5.4 g/dL (5.7-8.2) Albumin 3.7 g/dL (3.2-4.8) Urine Color Light-yellow (Yellow) Urine Clarity Clear (Clear) Urine pH 5.0 (5.0-9.0) Urine Specific Kinder 1.010 (1.001-1.035) Urine Protein Negative (Negative) Urine Ketones Negative (Negative) Urine Blood Negative /uL (Negative) Urine Nitrite Negative (Negative) Urine Bilirubin Negative (Negative) Urine Urobilinogen Normal mg/dL (Negative) Urine Leukocyte Esterase Negative /uL (Negative) Urine RBC <1 /hpf (0 - 4) Urine Microscopic WBC 8 /HPF (0-5) Urine Squamous Epithelial Cells Few /hpf (<5) Urine Bacteria Few /hpf (None Seen) Urine Hyaline Casts Few /lpf (0 - 2) Urine Mucus Few (None Seen) Urine Glucose Normal mg/dL (Normal) Urine Opiates Screen Neg (NEGATIVE) Urine Fentanyl Screen Neg (NEGATIVE) Urine Barbiturates Screen Neg (NEGATIVE) Urine Phencyclidine Screen Neg (NEGATIVE) Urine Amphetamines Screen Neg (NEGATIVE) Urine Benzodiazepines Screen Neg (NEGATIVE) Urine Cocaine Screen Neg (NEGATIVE) Urine Cannabinoids Screen Neg (NEGATIVE) Troponin I High Sensitivity 8 ng/L (</=34) B-Type Natriuretic Peptide 25.91 pg/mL (0-100) Triglycerides Level 77 mg/dL (< 150) Cholesterol Level 82 mg/dL (< 200) LDL Cholesterol 26 mg/dL (< 100) HDL Cholesterol 38 mg/dL (40-59) White Blood Count 7.9 10^3/uL (4.4-10.8) Red Blood Count 4.98 10^6/uL (4.0-5.20) Hemoglobin 15.6 g/dL (12.2-16.2) Hematocrit 46.4 % (36.0-46.0) Mean Corpuscular Volume 93.3 fL (80.0-100.0) Mean Corpuscular Hemoglobin 31.5 pg (28.0-32.0) Mean Corpuscular Hemoglobin Concent 33.7 g/dL (32.0-36.0) Red Cell Distribution Width 13.8 % (11.8-14.3) Platelet Count 192 10^3/uL (140-450) Mean Platelet Volume 11.5 fL (6.9-10.8) Neutrophils (%) (Auto) 67.9 % (37.0-80.0) Lymphocytes (%) (Auto) 21.8 % (10.0-50.0) Monocytes (%) (Auto) 9.0 % (0.0-12.0) Eosinophils (%) (Auto) 0.8 % (0.0-7.0) Basophils (%) (Auto) 0.5 % (0.0-2.0) Neutrophils # (Auto) 5.4 10 ^3/uL (1.6-8.6) Lymphocytes # (Auto) 1.7 10 ^3/uL (0.4-5.4) Monocytes # (Auto) 0.7 10 ^3/uL (0-1.3) Eosinophils # (Auto) 0.1 10 ^3/uL (0-0.8) Basophils # (Auto) 0 10 ^3/uL (0-0.2) Nucleated Red Blood Cells 0.1 % Other Laboratory Tests 06/28/24 06:48 06/26/24 15:20 Brief Hx & Hospital Course: Final diagnoses: Atypical chest pain, most likely musculoskeletal Hypotension Acute kidney injury due to vasomotor nephropathy History of hypertension Diastolic heart failure History of CAD Dyslipidemia Chronic bilateral lower extremity lymphedema Obesity Condition at Discharge: Stable Final Diagnosis/Problems List Atypical chest pain, most likely musculoskeletal Hypotension Acute kidney injury due to vasomotor nephropathy History of hypertension Diastolic heart failure History of CAD Dyslipidemia Chronic bilateral lower extremity lymphedema Obesity SNF Discharge Will this Physician continue t: No Discharge Statement: "Patient was advised to return to the ER or call 911 if any headaches, dizziness, shortness of breath, chest pain, abdominal pain, bleeding, fevers, or worsening of medical condition. Patient was counseled about treatment plan, medications, possible side effects, patientverbalized understanding. All questions were answered to the best of my ability. This discharge took greater then 30 minutes in planning, reviewing documentation, counseling the patient, and discussing with other team members." ASSESSMENT ASSESSMENT Assessment Date of Service: Jun 28, 2024 Billing Provider: RUSSELL CORONA MD Common Visit Codes: NOT BILLABLE RUSSELL CORONA MD Jun 28, 2024 12:37
[2024-06-28 12:52] VITALS: BP 120/57; PULSE 62; RESP 16; TEMP 97.6; O2SAT 96
[2024-06-28 15:57] VITALS: BP 89/42; TEMP 36.4
[2024-06-28 17:00] VITALS: BP 124/58; PULSE 65; RESP 16; TEMP 97.8; O2SAT 98
== END 2024-06-28 19:40 | disposition home or self-care (01) | DRG 683 ==
LOC: EDBD 14:59 → ER 14:59 → OVERFLOW 19:56 → TELE-EAST 06-27 09:27
PROVIDERS: ADMIT Internal Medicine Geriatric Medicine; ATTEND Internal Medicine Geriatric Medicine
DX: N17.0 Acute kidney failure with tubular necrosis (principal); I25.110 Atherosclerotic heart disease of native coronary artery with unstable angina pectoris; I50.32 Chronic diastolic (congestive) heart failure; R07.89 Other chest pain; K29.70 Gastritis, unspecified, without bleeding; J45.909 Unspecified asthma, uncomplicated; I89.0 Lymphedema, not elsewhere classified; I48.91 Unspecified atrial fibrillation; I95.9 Hypotension, unspecified; I11.0 Hypertensive heart disease with heart failure; E78.5 Hyperlipidemia, unspecified; I08.3 Combined rheumatic disorders of mitral, aortic and tricuspid valves; E66.9 Obesity, unspecified; Z88.2 Allergy status to sulfonamides; Z79.899 Other long term (current) drug therapy; Z79.82 Long term (current) use of aspirin; Z82.49 Family history of ischemic heart disease and other diseases of the circulatory system; Z68.31 Body mass index [BMI] 31.0-31.9, adult
CPT/HCPCS: 36415; 71045; 78452; 80048; 80053; 80061; 80307; 81001; 83735; 83880; 84484; 85025; 87081; 93005; 93017; 97110; 97116; 97163; 97530; G0378

== ENCOUNTER 2024-07-03 17:38 | Emergency (ER) | payer OTHER ==
[~2024-07-03] VITALS: Ht 167.6 cm; Wt 109.0 kg
[~2024-07-03 17:38] MED LIST changes: -HYDR25TA87 PO; -OLME40TA76 PO
--- NOTE | 2024-07-03 18:23 | ED.PDOC ---
HPI (NEURO) HPI Comments 68y F who presents to the ED via EMS for chief complaint of headache. Pt states after eating lunch 4-5 hours prior, pt states she was checking her blood pressure. Pt states she has history of HTN and states despite taking her medications, her BP was elevated at systolic 200 and called EMS to the scene. Pt states she started to headache and blurred vision and called EMS. EMS states pt was at [facility] with similar symptoms a few weeks prior and states 2 new blood pressure medications were added. Pt in the ED, BP of 199/59 with all other vitals in normal range. Pt in the ED, otherwise denies any other symptoms at this time. Chief Complaint: Headache Time Seen by MD: 18:15 Primary Care Provider: JENELLE Nair Notes: Regional Driver Notes Information Source: Patient, Emergency Med Personnel Mode of Arrival: EMS Brought in by: EMS Severity: Moderate Dizziness/Weakness Severity: Does not affect activitie Headache Severity: Moderate Timing: Hours Duration: Since onset Prehospital treatment: None Headache Location: Generalized Onset: At rest Circumstances: Spontaneous Symptoms: Weakness History of: Hypertension Modifying factors: Nothing Associated Signs and Symptoms: Headache, Blurred Vision Past Medical History PAST MEDICAL HISTORY: AFIB, Asthma, CAD, CHF, High Lipids, HTN Past Medical History (Other): lymphedema Surgical History: Denies all surgeries Surgical History (Other): b/l foot surgery ADVERTISING ASSISTANT MANAGER History: No Pertinent ADVERTISING ASSISTANT MANAGER History Family History Family History: Reviewed,noncontributory to illness, No family hx of Cancer, No family hx of DM, No family hx of Heart asya, No family hx of HTN, No family hx ofKidney asya, No family hx of Liver asya, No family hx of Lung asya, No family hx of Stroke Social History Smoker: Non-Smoker Alcohol: Denies ETOH Use Drugs: Denies Drug Use Lives In: Home Constitutional: denies: chills, diaphoresis, fatigue, fever, malaise, sweats, weakness, others EENTM: reports: blurred vision; denies: double vision, ear bleeding, ear discharge, ear drainage, ear pain, ear ringing, eye pain, eye redness, hearing loss, mouth pain, mouth swelling, nasal discharge, nose bleeding, nose congestion, nose pain, photophobia, tearing, throat pain, throat swelling, voice changes, others Respiratory: denies: cough, hemoptysis, orthopnea, SOB at rest, shortness of breath, SOB with excertion, stridor, wheezing, others Cardiovascular: denies: chest pain, dizzy spells, diaphoresis, Dyspnea on exertion, edema, irregular heart beat, left arm pain, lightheadedness, palpitations, PND, syncope, others Gastrointestinal: denies: abdomen distended, abdominal pain, blood streaked bowels, constipated, diarrhea, dysphagia, difficulty swallowing, hematemesis, melena, nausea, poor appetite, poor fluid intake, rectal bleeding, rectal pain, vomiting, others Genitourinary: denies: abnormal vagina bleeding, burning, dyspareunia, dysuria, flank pain, frequency, hematuria, incontinence, pain, , vagina discharge, urgency, others Neurological: reports: headache; denies: dizziness, fainting, left sided numbn ess, left sided weakness, numbness, paresthesia, pre-existing deficit, right sided numbness, right sided weakness, seizure, speech problems, tingling, tremors, weakness, others Musculoskeletal: denies: back pain, gout, joint pain, joint swelling, muscle pain, muscle stiffness, neck pain, others Integumetry: denies: bruises, change in color, change in hair/nails, dryness, laceration, lesions, lumps, rash, wounds, others Allergic/Immunocompromised: denies: Difficulty Healing, Frequent Infections, Hives, Itching, others Hematologic/Lymphatic: denies: anemia, blood clots, easy bleeding, easy bruising, swollen glands, others Endocrine: denies: excessive hunger, excessive sweating, excessive thirst, excessive urination, flushing, intolerance to cold, intolerance to heat, unexplained weight gain, unexplained weight loss, others Psychiatric: denies: anxiety, bipolar disorder, depression, hopeless, panic disorder, schizophrenia, sleepless, suicidal, others All Other Systems: Reviewed and Negative Physical Exam General Appearance: No Apparent Distress HEENT: Normal ENT Inspection, Pharynx Normal, TMs Normal Neck: Full Range of Motion, Non-Tender, Normal, Normal Inspection Respiratory: Chest Non-Tender, Lungs Clear, No Accessory Muscle Use, No Respiratory Distress, Normal Breath Sounds Cardiovascular: No Edema, No JVD, No Murmur, No Gallop, Normal Peripheral Pulses, Regular Rate/Rhythm Breast Exam: Deferred Gastrointestinal: No Organomegaly, Non Tender, No Pulsatile Mass, Normal Bowel Sounds, Soft Genitalia: Deferred Pelvic: Deferred Rectal: Deferred Extremities: No calf tenderness, Normal capillary refill, Non-tender, Pedal edema Musculoskeletal : Apperance: Normal Neurologic: Alert, mission assessment specialist II-XII nml as Tested, No Motor Deficits, Normal Affect, Normal Mood, No Sensory Deficits Cerebellar Function: Normal Reflexes: Normal Skin: Dry, Normal Color, Warm Lymphatic: No Adenopathy Was a procedure done? Was a procedure done?: No Differential Diagnosis (SZ) Seizure: N/A General Weakness: Dehydration, Electrolyte imbalance, Hypoglycemia, Hypotension, TIA, Vertigo: central, Vertigo: peripheral, Other (htn urgency) X-Ray, Labs, Meds, VS Vital Signs Date Time Temp Pulse Resp B/P (MAP) Pulse Ox O2 Delivery O2 Flow Rate FiO2 07/03/24 17:47 98.8 65 16 199/59 (105) 96 Lab Test 07/03/24 19:19 Range/Units White Blood Count 6.2 4.4-10.8 10^3/uL Red Blood Count 4.38 4.0-5.20 10^6/uL Hemoglobin 13.5 12.2-16.2 g/dL Hematocrit 40.9 36.0-46.0 % Mean Corpuscular Volume 93.5 80.0-100.0 fL Mean Corpuscular Hemoglobin 30.9 28.0-32.0 pg Mean Corpuscular Hemoglobin Concent 33.1 32.0-36.0 g/dL Red Cell Distribution Width 13.7 11.8-14.3 % Platelet Count 169 140-450 10^3/uL Mean Platelet Volume 11.4 H 6.9-10.8 fL Neutrophils (%) (Auto) 61.4 37.0-80.0 % Lymphocytes (%) (Auto) 27.5 10.0-50.0 % Monocytes (%) (Auto) 9.5 0.0-12.0 % Eosinophils (%) (Auto) 1.2 0.0-7.0 % Basophils (%) (Auto) 0.4 0.0-2.0 % Neutrophils # (Auto) 3.8 1.6-8.6 10 ^3/uL Lymphocytes # (Auto) 1.7 0.4-5.4 10 ^3/uL Monocytes # (Auto) 0.6 0-1.3 10 ^3/uL Eosinophils # (Auto) 0.1 0-0.8 10 ^3/uL Basophils # (Auto) 0 0-0.2 10 ^3/uL Nucleated Red Blood Cells 0.0 % Sodium Level Pending Potassium Level Pending Chloride Level Pending Carbon Dioxide Level Pending Anion Gap Pending Blood Urea Nitrogen Pending Creatinine Pending Glomerular Filtration Rate Calc Pending BUN/Creatinine Ratio Pending Serum Glucose Pending Calcium Level Pending The CBC and chemistry panel are within normal limits The patient was blood pressure has decreased to a manageable level The patient was being discharged with a diagnosis of hypertensive urgency we fe el that the patient's symptoms are from the patient's elevated blood pressure The patient will follow up with the primary care doctor The patient will return to the emergency department if the condition worsens. Time of 1ST Reevaluation: 18:45 Reevaluation 1ST: Unchanged Patient Education/Counseling: Diagnosis, Treatment, Prognosis, Need For Follow Up Family Education/Counseling: No Family Present Departure 1 Departure Time of Disposition: 19:56 Impression: Primary Impression: Hypertensive urgency Disposition: 01 HOME / SELF CARE / HOMELESS Condition: Fair Discharged With: Self Critical Care Note Critical Care Time?: No Stability Stability form required: No Heart Score Heart Score: Heart Score Response (Comments) Value History Slightly Suspicious 0 EKG Normal 0 Age >65 2 Risk Factors 1 or 2 risk factors 1 Troponin Normal limit 0 Total 3 I personally scribed for TREVON MAURER MD ([email or web address]) on 07/03/24 at 18:23. Electronically submitted by Levy Leon ([email or web address]). TREVON MAURER MD Jul 03, 2024 18:23
[2024-07-03 19:34] LABS: Basophils # (auto) 0 10 ^3/uL (0-0.2); Basophils % (auto) 0.4 % (0.0-2.0); Eosinophils # (auto) 0.1 10 ^3/uL (0-0.8); Eosinophils % (auto) 1.2 % (0.0-7.0); Hematocrit 40.9 % (36.0-46.0); Hemoglobin 13.5 g/dL (12.2-16.2); Lymphocytes # (auto) 1.7 10 ^3/uL (0.4-5.4); Lymphocytes % (auto) 27.5 % (10.0-50.0); Mean Corpuscular Hemoglobin 30.9 pg (28.0-32.0); Mean Corpuscular Hgb Conc. 33.1 g/dL (32.0-36.0); Mean Corpuscular Volume 93.5 fL (80.0-100.0); Monocytes # (auto) 0.6 10 ^3/uL (0-1.3); Monocytes % (auto) 9.5 % (0.0-12.0); Neutrophils # (auto) 3.8 10 ^3/uL (1.6-8.6); Neutrophils % (auto) 61.4 % (37.0-80.0); Platelet Count (auto) 169 10^3/uL (140-450); Red Blood Cells 4.38 10^6/uL (4.0-5.20); Red Cell Distribution Width 13.7 % (11.8-14.3); White Blood Cell 6.2 10^3/uL (4.4-10.8)
[2024-07-03 19:42] LABS: Carbon Dioxide 26 mmol/L (20-31)
[2024-07-03 19:43] LABS: Calcium 10.1 mg/dL (8.7-10.4)
[2024-07-03 19:47] LABS: BUN/Creatinine Ratio 32.7 (10.0-20.0)
[2024-07-03 20:25] LABS: Blood Urea Nitrogen 32 mg/dL (9-23); Glucose 110 mg/dL (74-106)
[2024-07-03 20:43] LABS: Anion Gap 10 (5-15); Potassium 4.2 mmol/L (3.5-5.1); Sodium 145 mmol/L (136-145)
[2024-07-03 20:45] LABS: Chloride 109 mmol/L (98-107)
[2024-07-04 03:40] VITALS: BP 186/76; PULSE 52; RESP 14; TEMP 97.8; O2SAT 100
== END 2024-07-04 04:02 | disposition home or self-care (01) ==
LOC: ER 17:38 → EDUNIT# 17:38 → EDBD 17:38 → ER 07-04 04:02
DX: I16.0 Hypertensive urgency (principal); I48.91 Unspecified atrial fibrillation; J45.909 Unspecified asthma, uncomplicated; I11.0 Hypertensive heart disease with heart failure; I50.9 Heart failure, unspecified; I25.10 Atherosclerotic heart disease of native coronary artery without angina pectoris; R51.9 Headache, unspecified; E78.5 Hyperlipidemia, unspecified; Z98.890 Other specified postprocedural states
CPT/HCPCS: 36415; 80048; 85025

== ENCOUNTER 2024-07-10 10:44 | Inpatient (IN) | payer OTHER ==
[~2024-07-10] VITALS: Ht 167.6 cm; Wt 89.6 kg
[~2024-07-10 10:44] MED LIST changes: +OLME20TA53 PO
--- NOTE | 2024-07-10 10:49 | ECG ---
[facility] Test Date: 2024-07-10 Test Time: 10:42:26 Pat Name: NASIR ROSARIO Department: er Room: 0293T Gender: F Telephone Sales Agent: liana : 1955 Requested By: SHAGGY DEVRIES Order Number: [id number] Reading MD: Mayank Vidales Measurements Intervals [place] Rate: 59 P: 10 [place]: 133 QRS: 54 QRSD: 88 T: 59 QT: 430 QTc: 426 Interpretive Statements Sinus rhythm Electronically Signed On 07-13-2024 17:51:59 PST by Mayank Vidales Please click the below link to view image of tracing.
--- NOTE | 2024-07-10 11:23 | ED.PDOC ---
History of Present Illness HPI Comments 68F BIBA w/ prior Hx of CAD, Asthma, CHF, A-FIB and HTN which all may be associated for the c/c of CP. EMS report the pt starting to have Chest pressure yesterday at 1800. EMS note that the pt was complaining of dizziness and N/. Pt's BP was 171/71. Pt notes that she had similar symptoms 1 week ago. Pain type of a 10/15. PMHx of High Lipids, and Lymphedema. SHx of Bilateral Foot Sx. Denies chills, fever, N/V/D, SOB, or no other associated symptom's, modifiers, recent injuries or sick contact at this time. Chief Complaint: Chest Pain Time Seen by MD: 10:55 Primary Care Provider: JENELLE Nair Notes: Nurses Notes, Maintenance Mechanic 2Nd Shift Notes, Medications, Allergies Allergies: Coded Allergies: Sulfa Antibiotics (Verified Allergy, Unknown, 11/25/23) Home Meds Active Scripts Meclizine HCl (Meclizine) 25 Mg Chw, 25 MG PO BID for 5 Days, #10 CHW Prov:TREVON MAURER MD 06/18/24 Tramadol HCl (Tramadol HCl) 50 Mg Tab, 50 MG PO Q6HP PRN, #30 TAB Prov:RUSSELL CORONA MD 06/11/24 Reported Medications Spironolactone (Spironolactone) 25 Mg Tab, 1 TAB PO DAILY for 90 Days, #90 06/28/24 Rosuvastatin Calcium (Rosuvastatin Calcium) 40 Mg Tab, 1 TAB PO DAILY for 90 Days, #90 06/10/24 Aspirin (Aspir-Low) 81 Mg Tab, 81 MG PO DAILY for 30 Days, MG 06/10/24 Hydrochlorothiazide (Hydrochlorothiazide) 12.5 Mg Tab, 1 TAB PO DAILY for 30 Days, #30 06/10/24 Gabapentin (Gabapentin) 100 Mg Cap, 1 CAP PO TID for 30 Days, #90 02/29/24 Information Source: Patient, Emergency Med Personnel Mode of Arrival: EMS Severity: Moderate Timing: Hours Duration: Since onset, Hours Prehospital treatment: None Past Medical History PAST MEDICAL HISTORY: AFIB, Asthma, CAD, CHF, High Lipids, HTN Past Medical History (Other): Lymphedema Surgical History (Other): Bilateral Foot Sx RECRUITING ASSISTANT History: No Pertinent RECRUITING ASSISTANT History Family History Family History: Reviewed,noncontributory to illness, Unknown Social History Smoker: Non-Smoker Alcohol: Denies ETOH Use Drugs: Denies Drug Use Lives In: Home Constitutional: denies: chills, diaphoresis, fatigue, fever, malaise, sweats, weakness, others EENTM: denies: blurred vision, double vision, ear bleeding, ear discharge, ear drainage, ear pain, ear ringing, eye pain, eye redness, hearing loss, mouth pain, mouth swelling, nasal discharge, nose bleeding, nose congestion, nose pain, photophobia, tearing, throat pain, throat swelling, voice changes, others Respiratory: denies: cough, hemoptysis, orthopnea, SOB at rest, shortness of breath, SOB with excertion, stridor, wheezing, others Cardiovascular: reports: chest pain; denies: dizzy spells, diaphoresis, Dyspnea on exertion, edema, irregular heart beat, left arm pain, lightheadedness, palpitations, PND, syncope, others Gastrointestinal: reports: nausea; denies: abdomen distended, abdominal pain, blood streaked bowels, constipated, diarrhea, dysphagia, difficulty swallowing, hematemesis, melena, poor appetite, poor fluid intake, rectal bleeding, rectal pain, vomiting, others Genitourinary: denies: abnormal vagina bleeding, burning, dyspareunia, dysuria, flank pain, frequency, hematuria, incontinence, pain, , vagina discharge, urgency, others Neurological: reports: dizziness; denies: fainting, headache, left sided numbness, left sided weakness, numbness, paresthesia, pre-existing deficit, right sided numbness, right sided weakness, seizure, speech problems, tingling, tremors, weakness, others Musculoskeletal: denies: back pain, gout, joint pain, joint swelling, muscle pain, muscle stiffness, neck pain, others Integumetry: denies: bruises, change in color, change in hair/nails, dryness, laceration, lesions, lumps, rash, wounds, others Allergic/Immunocompromised: denies: Difficulty Healing, Frequent Infections, Hives, Itching, others Hematologic/Lymphatic: denies: anemia, blood clots, easy bleeding, easy bruising, swollen glands, others Endocrine: denies: excessive hunger, excessive sweating, excessive thirst, excessive urination, flushing, intolerance to cold, intolerance to heat, unexplained weight gain, unexplained weight loss, others Psychiatric: denies: anxiety, bipolar disorder, depression, hopeless, panic disorder, schizophrenia, sleepless, suicidal, others All Other Systems: Reviewed and Negative Physical Exam General Appearance: Moderate Distress, Normal HEENT: Normal ENT Inspection, Pharynx Normal, TMs Normal Neck: Full Range of Motion, Non-Tender, Normal, Normal Inspection Respiratory: Chest Non-Tender, Lungs Clear, No Accessory Muscle Use, No Respiratory Distress, Normal Breath Sounds Cardiovascular: No Edema, No JVD, No Murmur, No Gallop, Normal Peripheral Pulses, Regular Rate/Rhythm Breast Exam: Deferred Gastrointestinal: No Organomegaly, Non Tender, No Pulsatile Mass, Normal Bowel Sounds, Soft Genitalia: Deferred Pelvic: Deferred Rectal: Deferred Extremities: No calf tenderness, Normal capillary refill, Normal inspection, Normal range of motion, Non-tender, No pedal edema Musculoskeletal : Apperance: Normal Neurologic: Alert, onboarding specialist II-XII nml as Tested, No Motor Deficits, Normal Affect, Normal Mood, No Sensory Deficits Cerebellar Function: Normal Reflexes: Normal Skin: Dry, Normal Color, Warm Peripheral Pulses: 3+ Radial (R), 3+ Radial (L) Lymphatic: No Adenopathy Was a procedure done? Was a procedure done?: No Differential Dx Considerations may include: Anemia Electrolyte imbalance X-Ray, Labs, Meds, VS Vital Signs Date Time Temp Pulse Resp B/P (MAP) Pulse Ox O2 Delivery O2 Flow Rate FiO2 07/10/24 10:52 97.8 67 18 174/71 (105) 96 07/10/24 10:44 59 Lab Test 07/10/24 12:18 07/10/24 12:07 07/10/24 10:56 Range/Units Sodium Level Pending Potassium Level Pending Chloride Level Pending Carbon Dioxide Level Pending Anion Gap Pending Blood Urea Nitrogen Pending Creatinine Pending Glomerular Filtration Rate Calc Pending BUN/Creatinine Ratio Pending Serum Glucose Pending Calcium Level Pending Total Bilirubin Pending Aspartate Amino Transferase (AST) Pending Alanine Aminotransferase (ALT) Pending Alkaline Phosphatase Pending Total Protein Pending Albumin Pending Troponin I High Sensitivity Pending 11 </=34 ng/L Patient alert. Complaining of chest pain. Vitals stable. Answering questions. EKG reviewed does not show any acute changes. Was recently seen for the same symptom. Possibly will need placement. Cardiac marker within normal limits. Blood pressure elevated. Was given clonidine. Reviewed her previous visit. Explained to the patient. Continue monitoring. Time of 1ST Reevaluation: 11:25 Reevaluation 1ST: Unchanged Patient Education/Counseling: Diagnosis, Treatment, Prognosis Family Education/Counseling: No Family Present Departure 1 Departure Time of Disposition: 12:29 Impression: Primary Impression: Chest pain of unknown etiology Additional Impression: Hypertensive urgency Disposition: ADMITTED INPATIENT Admit to: Med Surg Condition: Guarded Critical Care Note Critical Care Time?: No Stability Stability form required: No Heart Score Heart Score: Heart Score Response (Comments) Value History Slightly Suspicious 0 EKG Normal 0 Age >65 2 Risk Factors 1 or 2 risk factors 1 Troponin Normal limit 0 Total 3 I personally scribed for SHAGGY DEVRIES MD ([email or web address]) on 07/10/24 at 11:23. Electronically submitted by Jozef Wolf ([email or web address]). SHAGGY DEVRIES MD Jul 10, 2024 11:23
--- NOTE | 2024-07-10 11:51 | ECG ---
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
[2024-07-10 12:43] LABS: Alanine Aminotransferase 18 U/L (7-40); Albumin 4.2 g/dL (3.2-4.8); Alkaline Phosphatase 95 U/L (46-116); Anion Gap 11 (5-15); Aspartate Aminotransferase 26 U/L (13-40); BUN/Creatinine Ratio 21.3 (10.0-20.0); Blood Urea Nitrogen 16 mg/dL (9-23); Calcium 9.5 mg/dL (8.7-10.4); Carbon Dioxide 25 mmol/L (20-31); Potassium 3.7 mmol/L (3.5-5.1); Total Protein 6.3 g/dL (5.7-8.2)
[2024-07-10 12:44] LABS: Bilirubin, Total 0.3 mg/dL (0.2-1.0)
[2024-07-10 12:47] LABS: Chloride 110 mmol/L (98-107); Glucose 122 mg/dL (74-106); Sodium 146 mmol/L (136-145)
[2024-07-10] MEDS: ASPirin 325 MG TAB PO ONE (12:53)
[2024-07-10] MEDS: cloNIDine HCL 0.1 MG TAB PO ONE (12:54)
[2024-07-10] MEDS: NITROGLYCERIN 0.4 MG SL TAB SL ONE (12:55)
[2024-07-10] MEDS ORDERED: ACETAMINOPHEN 325 MG TAB PO PRN (16:45)
[2024-07-10] MEDS ORDERED: HYDR25TA87 PO (16:45)
[2024-07-10] MEDS ORDERED: PATIENTS OWN MEDICATION (Clonidine Hydrochloride (Clonidine Hcl) 1 TAB) PO PRN (16:45)
[2024-07-10] MEDS ORDERED: DOCUSATE SOD 100 MG CAP PO PRN (16:45)
[2024-07-10] MEDS ORDERED: CLON0.2T PO (16:45)
[2024-07-10] MEDS ORDERED: AMLO1TAB22 PO (16:45)
[2024-07-10] MEDS ORDERED: NITROGLYCERIN 0.4 MG SL TAB SL PRN (16:45)
[2024-07-10] MEDS ORDERED: ONDANSETRON HCL 4 MG/2 ML VIAL IV PRN (16:45)
[2024-07-10 16:47] LABS: Basophils # (auto) 0 10 ^3/uL (0-0.2); Basophils % (auto) 0.7 % (0.0-2.0); Eosinophils # (auto) 0.2 10 ^3/uL (0-0.8); Eosinophils % (auto) 2.3 % (0.0-7.0); Hematocrit 41.5 % (36.0-46.0); Hemoglobin 13.5 g/dL (12.2-16.2); Lymphocytes # (auto) 1.4 10 ^3/uL (0.4-5.4); Mean Corpuscular Hemoglobin 31.2 pg (28.0-32.0); Mean Corpuscular Hgb Conc. 32.7 g/dL (32.0-36.0); Mean Corpuscular Volume 95.4 fL (80.0-100.0); Monocytes # (auto) 0.7 10 ^3/uL (0-1.3); Monocytes % (auto) 10.7 % (0.0-12.0); Neutrophils # (auto) 4.2 10 ^3/uL (1.6-8.6); Neutrophils % (auto) 64.3 % (37.0-80.0); Nucleated Red Blood Cells % 0.2 %; Platelet Count (auto) 143 10^3/uL (140-450); Red Blood Cells 4.35 10^6/uL (4.0-5.20); Red Cell Distribution Width 13.7 % (11.8-14.3); White Blood Cell 6.6 10^3/uL (4.4-10.8)
--- NOTE | 2024-07-10 17:13 | DVHHP2 ---
History of Present Illness Reason for Visit: Chest pain History of Present Illness Queenie Cheng is a 68-year-old female with past medical history of hypertensin, hyperlipidemia, CHF, atrial fibrillation, coronary artery disease, and lymphedema, who came in with complaints of chest pain. Patient states that her chest pain began last night about 1800. It was midsternal, sharp and pressure, non-radiating with associated nausea, and dizziness. She states she went to bed, and woke up with the same pain, and came to the hospital. Cardiovascular: AFIB, CAD, CHF, HTN, hyperipidemia Musculoskeletal: Other (bilateral lower extremities lymphedema) Past Surgical History: Other (bilateral feet) Smoke: No ALCOHOL: none Drugs: None Lives: with Family Domestic Violence: Neg Review of Systems Constitutional: No: Fever, Chills, Sweats, Weakness, Malaise, Other Eyes: No: Pain, Vision change, Conjunctivae inflammation, Eyelid inflammation, Other, Redness ENT: No: Ear pain, Ear discharge, Nose pain, Nose discharge, Nose congestion, Mouth pain, Mouth swelling, Throat pain, Throat swelling, Other Respiratory: No: Cough, Dry, Shortness of breath, SOB with excertion, Wheezing, Hemoptysis, Pleuritic Pain, Sputum, Wheezing, Other Cardiovascular: Chest Pain; No: Palpitations, Orthopnea, Paroxysmal Noc. Dyspne a, Edema, Lt Headedness, Other Gastrointestinal: Nausea; No: Vomiting, Abdominal Pain, Diarrhea, Constipation, Melena, Hematochezia, Other Genitourinary: No Dysuria, No Frequency, No Incontinence, No Hematuria, No Retention, No Other Musculoskeletal: No: other, neck pain, shoulder pain, arm pain, back pain, hand pain, leg pain, foot pain Skin: No: Rash, Lesions, Jaundice, Bruising, Other Neurological: Other (dizziness); No: Weakness, Numbness, Incoordination, Change in speech, Confusion, Seizures Allergies: Coded Allergies: Sulfa Antibiotics (Verified Allergy, Unknown, 11/25/23) Medications Current Medications Medications Dose Ordered Sig/Alfonso Route Start Time Stop Time Status Last Admin Dose Admin Sodium Chloride 10 ml Q8HR IV 07/10/24 22:00 UNV Acetaminophen/ Hydrocodone Bitart 1 tab Q4HP PRN PO 07/10/24 16:45 UNV Ondansetron HCl 4 mg Q4HP PRN IV 07/10/24 16:45 UNV Docusate Sodium 100 mg BIDPRN PRN PO 07/10/24 16:45 UNV Acetaminophen 650 mg Q6HP PRN PO 07/10/24 16:45 UNV Nitroglycerin 0.4 mg Q5MINP PRN SL 07/10/24 16:45 UNV Morphine Sulfate 2 mg Q30M PRN IV 07/10/24 16:45 UNV Aspirin 81 mg DAILY PO 07/11/24 10:00 UNV Gabapentin 100 mg TID PO 07/10/24 22:00 UNV Spironolactone 25 mg DAILY PO 07/11/24 10:00 UNV Patient Own Medication 1 tab DAILY PO 07/11/24 10:00 UNV Patient Own Medication 1 tab DAILY PO 07/11/24 10:00 UNV Amlodipine Besylate 5 mg DAILY PO 07/11/24 10:00 UNV Hydralazine HCl 25 mg TID PO 07/10/24 22:00 UNV Patient Own Medication 1 tab Q4HPRN PRN PO 07/10/24 16:45 UNV Exam Vital Signs Vital Signs Date Time Temp Pulse Resp B/P (MAP) Pulse Ox O2 Delivery O2 Flow Rate FiO2 07/10/24 12:55 164/76 07/10/24 11:47 54 07/10/24 10:52 97.8 18 96 General Appearance: Alert, Oriented X3, Cooperative, No acute distress HEENT: Atraumatic, PERRLA Respiratory: Clear to auscultation, Normal air movement Cardiovascular: Regular rate, Normal S1, Normal S2, No murmurs Abdominal: Normal bowel sounds, Soft, No tenderness Extremities: No clubbing, No cyanosis, Other (bilateral lower extremities lymphedema,) Skin: No rashes, No breakdown, No significant lesion Neuro: Normal speech, Other (mostly uses a wheelchair, can ambulate short distances) Psych/Mental Status: Mental status NL, Mood NL, Other (repetitive and forgetful) Labs/Xrays Labs Test 07/10/24 12:18 07/10/24 12:07 07/10/24 10:56 Range/Units Sodium Level 146 H 136-145 mmol/L Potassium Level 3.7 3.5-5.1 mmol/L Chloride Level 110 H 98-107 mmol/L Carbon Dioxide Level 25 20-31 mmol/L Anion Gap 11 5-15 Blood Urea Nitrogen 16 9-23 mg/dL Creatinine 0.75 0.550-1.02 mg/dL Glomerular Filtration Rate Calc 86 >90 mL/min BUN/Creatinine Ratio 21.3 H 10.0-20.0 Serum Glucose 122 H 74-106 mg/dL Calcium Level 9.5 8.7-10.4 mg/dL Total Bilirubin 0.3 0.2-1.0 mg/dL Aspartate Amino Transferase (AST) 26 13-40 U/L Alanine Aminotransferase (ALT) 18 7-40 U/L Alkaline Phosphatase 95 46-116 U/L Total Protein 6.3 5.7-8.2 g/dL Albumin 4.2 3.2-4.8 g/dL Troponin I High Sensitivity 11 </=34 ng/L Assessment/Plan Assessment/Plan Assessment: Hypertensive urgency, Chest pain, Hyperlipidemia, Lymphedema, Plan: Admit to Tele, Cardiology consult, CBC ordered, Chest X-ray ordered, Home medications reconciled, Plan discussed with: Patient My Orders Orders - TAQUERIA KAY Procedure Category Date Status Time Complete Blood Count LAB 07/10/24 In Process 16:28 Admit ADMIT 07/10/24 Transmitted 16:38 Code Status CODE 07/10/24 Transmitted 16:38 Sodium Chloride Lock PHA 07/10/24 Logged (Saline Lock Ns) 22:00 Hydrocodone-Acet PHA 07/10/24 Logged 5/325mg Tab ([place] 16:45 Ondansetron Hcl PHA 07/10/24 Logged (Zofran) 16:45 Docusate Sodium PHA 07/10/24 Logged Capsule (Colace 16:45 Fall Risk Precautions REX 07/10/[address] 16:38 Complete Blood Count LAB 07/11/24 Verified 04:00 Comprehensive LAB 07/11/24 Verified Metabolic Panel 04:00 Cardiac DIET 07/10/24 Transmitted Diet-2gna,Lofat,Lochol Dinner Condition: Serious REX 07/10/24 In Process 16:38 Acetaminophen Tablet PHA 07/10/24 Logged (Tylenol Tablet) 16:45 Nitroglycerin PHA 07/10/24 Logged Sublingual (Ntrostat 16:45 Morphine Sulfate PHA 07/10/24 Logged Injection 16:45 Stat Ekg For Chest REX 07/10/24 In Process Pain 16:38 Notify Md Of Changes [facility] 07/10/24 In Process From Base 16:38 Cushion Builder For [facility] 07/10/24 In Process 24 Hours 16:38 Emergency Dysrhythmia [facility] 07/10/24 In Process Protocol 16:38 Rhythm Strips Once [facility] 07/10/24 In Process Every Shift 16:38 Oxygen By Nasal RT 07/10/24 Transmitted Cannula 16:38 * Cardiology Consult CONS 07/10/24 Transmitted 16:38 Aspirin Enteric PHA 07/11/24 Logged Coated Tablet 10:00 Gabapentin Capsule PHA 07/10/24 Logged (Neurontin Capsule) 22:00 Spironolactone PHA 07/11/24 Logged (Aldactone) 10:00 (NF) PHA 07/11/24 Logged Hydrochlorothiazide 10:00 (Nf) Rosuvastatin PHA 07/11/24 Logged Calcium 10:00 Amlodipine Tablet PHA 07/11/24 Logged (Norvasc Tablet) 10:00 Hydralazine Hcl PHA 07/10/24 Logged Tablet (Apresoline 22:00 (Nf) Clonidine PHA 07/10/24 Logged Hydrochloride 16:45 Date of Service: Jul 10, 2024 Billing Provider: TAQUERIA KAY Common Visit Codes: [id number] INP/OBS CARE (MOD) TAQUERIA KAY Jul 10, 2024 17:13
[2024-07-10] MEDS ORDERED: cloNIDine HCL 0.1 MG TAB PO PRN ×2 (17:15)
[2024-07-10] MEDS ORDERED: hydrALAZINE HCL 20 MG/ML VL IV PRN (18:15)
--- NOTE | 2024-07-10 18:19 | DVHINCON2 ---
Date Seen: Jul 10, 2024 Referring Physician JESUS Wilson Reason for Consultation Hypertensive urgency, chest pain History of Present Illness This is a 68-year-old female who presented to the emergency room via EMS with a chief complaint of chest pain associated with uncontrolled blood pressure. Describes her chest pain as left-sided, pressure-like, nonradiating, unprovoked, and associated with dizziness and a SBP in the 260s mmHg. States she is compliant with hydralazine and clonidine therapy at home. She was recently discontinue from olmesartan and amlodipine therapy. Upon arrival to the emergency room she was found with a SBP in the 170s mmHg. Follows up in the outpatient setting with the primary adhesive primer, Dr. Jang, with latest appointment being approximately a month ago where she underwent a transthoracic echocardiogram and was told of an unspecified abnormality with a valve. She was also advised for a stress test awaiting referral at this time. She underwent multiple 12 lead electrocardiogram revealing a sinus bradycardia rhythm with no evidence of ST segment changes. Serial troponin levels are negative. Significant medical history includes congestive heart failure, hypertension, dyslipidemia, chronic lymphedema, peripheral neuropathy, and obesity. Of note, previous providers documented history of atrial fibrillation and CAD which the patient denies. Past Medical History Past medical history reviewed. No other significant than mentioned above. Past Surgical History Past medical history reviewed. No other significant than mentioned above. Family History: Cardiovascular disease family hx1, , Age: 95 Family History Family history reviewed. Significant for father with permanent pacemaker implantation. Social History Denies the use of illicit drugs, alcohol, or tobacco use. Allergies: Coded Allergies: Sulfa Antibiotics (Verified Allergy, Unknown, 11/25/23) Home Meds Reported Medications Clonidine Hydrochloride (Clonidine Hcl) 0.2 Mg Tab, 1 TAB PO Q4HPRN PRN 07/10/24 Amlodipine Besylate (Amlodipine Besylate) 5 Mg Tab, 1 TAB PO DAILY 07/10/24 Hydralazine HCl (Hydralazine HCl) 25 Mg Tab, 1 TAB PO TID 07/10/24 Spironolactone (Spironolactone) 25 Mg Tab, 1 TAB PO DAILY for 90 Days, #90 06/28/24 Rosuvastatin Calcium (Rosuvastatin Calcium) 40 Mg Tab, 1 TAB PO DAILY for 90 Days, #90 06/10/24 Aspirin (Aspir-Low) 81 Mg Tab, 81 MG PO DAILY for 30 Days, MG 06/10/24 Hydrochlorothiazide (Hydrochlorothiazide) 12.5 Mg Tab, 1 TAB PO DAILY for 30 Days, #30 06/10/24 Gabapentin (Gabapentin) 100 Mg Cap, 1 CAP PO TID for 30 Days, #90 02/29/24 Discontinued Scripts Meclizine HCl (Meclizine) 25 Mg Chw, 25 MG PO BID for 5 Days, #10 CHW Prov:TREVON MAURER MD 06/18/24 Tramadol HCl (Tramadol HCl) 50 Mg Tab, 50 MG PO Q6HP PRN, #30 TAB Prov:RUSSELL CORONA MD 06/11/24 Home Meds Home medications reviewed. Current Medications Current Medications Medications (Trade) Dose Ordered Sig/Alfonso Route PRN Reason Start Time Stop Time Status Last Admin Sodium Chloride (Saline Lock Ns) 10 ml Q8HR IV 07/10/24 22:00 Acetaminophen/ Hydrocodone Bitart ([place] 5/325MG Tab) 1 tab Q4HP PRN PO MODERATE PAIN (4-6 PAIN SCALE) 07/10/24 16:45 Ondansetron HCl (Zofran) 4 mg Q4HP PRN IV NAUSEA / VOMITING 07/10/24 16:45 Docusate Sodium (Colace Capsule) 100 mg BIDPRN PRN PO FOR CONSTIPATION 07/10/24 16:45 Acetaminophen (Tylenol Tablet) 650 mg Q6HP PRN PO PAIN SCALE 1-3 OR TEMP>100.4 07/10/24 16:45 Nitroglycerin (Ntrostat Sublingual) 0.4 mg Q5MINP PRN SL FOR CHEST PAIN 07/10/24 16:45 Morphine Sulfate 2 mg Q30M PRN IV FOR CHEST PAIN 07/10/24 16:45 Aspirin (Ecotrin Enteric Coated Tablet) 81 mg DAILY PO 07/11/24 10:00 Gabapentin (Neurontin Capsule) 100 mg TID PO 07/10/24 22:00 Spironolactone (Aldactone) 25 mg DAILY PO 07/11/24 10:00 Patient Own Medication 1 tab DAILY PO 07/11/24 10:00 UNV Patient Own Medication 1 tab DAILY PO 07/11/24 10:00 UNV Amlodipine Besylate (Norvasc Tablet) 5 mg DAILY PO 07/11/24 10:00 Hydralazine HCl (Apresoline Tablet) 25 mg TID PO 07/10/24 22:00 Patient Own Medication 1 tab Q4HPRN PRN PO SBP>160 07/10/24 16:45 UNV Hydrochlorothiazide (hydroCHLOROthiazide TABLET) 12.5 mg DAILY PO 07/11/24 10:00 Atorvastatin Calcium (Lipitor) 20 mg HS PO 07/10/24 22:00 Clonidine HCl (Catapres Tablet) 0.2 mg Q4HPRN PRN PO blood pressure 07/10/24 17:15 07/10/24 17:05 DC Clonidine HCl (Catapres Tablet) 0.2 mg Q4HPRN PRN PO SBP>160 07/10/24 17:15 Review of Systems Constitutional: No symptom reported Ears, Nose, & Throat: No symptom reported Eyes: No symptom reported Neurological: No symptoms reported Pulmonary/Respiratory: No symptom reported Cardiovascular: Chest pain Gastrointestinal: No symptom reported Genitourinary: No symptom reported Musculoskeletal: No symptom reported Skin: No symptom reported Psychiatric: No symptom reported Endocrine: No symptom reported Hemotologic/Lymphatic: No symptom reported Vital Signs Vital Signs Date Time Temp Pulse Resp B/P (MAP) Pulse Ox O2 Delivery O2 Flow Rate FiO2 07/10/24 12:55 164/76 07/10/24 11:47 54 07/10/24 10:52 97.8 18 96 Physical Exam General Appearance: Cooperative. Well developed. Obese. Unkept. In no acute distress Head Exam: Normal inspection Neck Exam: Normal inspection. Non-tender. Normal alignment Pulmonary/Respiratory: Chest non-tender. Clear bilateral breath sounds Cardiovascular/Chest: Regular rate and rhythm. S1, S2. Sinus bradycardia. No murmurs. No JVD. Peripheral Pulses: 2+ Radial (R). 2+ Radial (L). 2+ Pedal (R). 2+ Pedal (L) Abdominal Exam: Normal bowel sounds. Soft. Nontender. No hepatospenomegaly. No masses Ankle Exam: Positive ankle edema Lower extremities: Positive lower extremity edema Neuro/Mental Status: A&O x4. Coherent Thoughts/Psych: Normal thought pattern. Appropriate mood and affect. Good judgement and insight Appearance: In no acute distress Skin Exam: Normal inspection. Normal color. Warm. Dry Labs/Diagnostic Data Labs Test 07/10/24 12:18 07/10/24 12:07 07/10/24 10:56 Range/Units Sodium Level 146 H 136-145 mmol/L Potassium Level 3.7 3.5-5.1 mmol/L Chloride Level 110 H 98-107 mmol/L Carbon Dioxide Level 25 20-31 mmol/L Anion Gap 11 5-15 Blood Urea Nitrogen 16 9-23 mg/dL Creatinine 0.75 0.550-1.02 mg/dL Glomerular Filtration Rate Calc 86 >90 mL/min BUN/Creatinine Ratio 21.3 H 10.0-20.0 Serum Glucose 122 H 74-106 mg/dL Calcium Level 9.5 8.7-10.4 mg/dL Total Bilirubin 0.3 0.2-1.0 mg/dL Aspartate Amino Transferase (AST) 26 13-40 U/L Alanine Aminotransferase (ALT) 18 7-40 U/L Alkaline Phosphatase 95 46-116 U/L Total Protein 6.3 5.7-8.2 g/dL Albumin 4.2 3.2-4.8 g/dL Troponin I High Sensitivity 11 </=34 ng/L White Blood Count 6.6 4.4-10.8 10^3/uL Red Blood Count 4.35 4.0-5.20 10^6/uL Hemoglobin 13.5 12.2-16.2 g/dL Hematocrit 41.5 36.0-46.0 % Mean Corpuscular Volume 95.4 80.0-100.0 fL Mean Corpuscular Hemoglobin 31.2 28.0-32.0 pg Mean Corpuscular Hemoglobin Concent 32.7 32.0-36.0 g/dL Red Cell Distribution Width 13.7 11.8-14.3 % Platelet Count 143 140-450 10^3/uL Mean Platelet Volume 13.4 H 6.9-10.8 fL Neutrophils (%) (Auto) 64.3 37.0-80.0 % Lymphocytes (%) (Auto) 22.0 10.0-50.0 % Monocytes (%) (Auto) 10.7 0.0-12.0 % Eosinophils (%) (Auto) 2.3 0.0-7.0 % Basophils (%) (Auto) 0.7 0.0-2.0 % Neutrophils # (Auto) 4.2 1.6-8.6 10 ^3/uL Lymphocytes # (Auto) 1.4 0.4-5.4 10 ^3/uL Monocytes # (Auto) 0.7 0-1.3 10 ^3/uL Eosinophils # (Auto) 0.2 0-0.8 10 ^3/uL Basophils # (Auto) 0 0-0.2 10 ^3/uL Nucleated Red Blood Cells 0.2 % Assessment Chest pain in the setting of hypertensive urgency Chronic compensated HFpEF with LVEF of 60% Tricuspid regurgitation, moderate degree Dyslipidemia Chronic lymphadenopathy Obesity Plan/Recommendation (Dr. Vidales) Patient with a multiple recent admissions to this facility underwent a transthoracic echocardiogram revealing an LVEF of 60% with normal RV function. Also underwent a recent Lexiscan on 06/27/2024 deemed to be negative for ischemia. We recommend aggressive blood pressure control with HCTZ and Nifedipine XL, uptitrate as tolerated for a target SBP <140 mmHg. Hydralazine PRN. Avoid BBs given sinus bradycardia. Follow-up with primary adhesive primer as scheduled. There is no further cardiac workup indicated at this time. Kindly call if in need to re-consult. Thank you for allowing us to participate in this patient's care. This medical document was created using an electronic medical record system with voice recognition software and computerized dictation system. Although this document has been carefully reviewed, there might still be some phonetic and typographical errors. Occasional wrong-word or ``sound-alike substitutions may have occurred due to the inherent limitations of voice recognition software. These areas are purely typographical due to imperfections of the software programs and do not reflect any compromise in the patient's medical care. Please read the chart carefully and recognize, using context, where these substitutions have occurred. Plan discussed with: Patient, Other NYHA Physical activity limitations: Class1(None)absent sob, Date of Service: Jul 10, 2024 Billing Provider: ANIYA DELEON Cardiology Common Codes: [id number] INP/OBS CARE (High) ANIYA DELEON Jul 10, 2024 18:19
[2024-07-10 19:27] VITALS: PULSE 55; RESP 12; O2SAT 97
--- NOTE | 2024-07-10 19:41 | DVH ---
CHEST RADIOGRAPH Indication: chest pain Technique: Single frontal view of the chest was obtained COMPARISON: XY CHEST PORTABLE on DOS: 06/26/24, XY CHEST PORTABLE on DOS: 06/22/24, XY CHEST PORTABLE o n DOS: 05/21/24, XY CHEST PORTABLE on DOS: 02/20/24, XY CHEST XRAY 1 VIEW on DOS: 01/19/24 FINDINGS: Lines and Tubes: None Lungs: Clear Pleura: No effusion. No pneumothorax. Cardiomediastinal contours: Unremarkable Bones: Unremarkable IMPRESSION: No abnormality demonstrated.
[2024-07-10] MEDS: SODIUM CHLOR 0.9% PF (SALINE LOCK) 10ML VIAL/SYR IV SCH (21:25)
[2024-07-10] MEDS: ATORVASTATIN 20 MG TAB PO SCH (21:30)
[2024-07-10] MEDS: GABAPENTIN 100 MG CAP PO SCH (21:30)
[2024-07-10] MEDS ORDERED: CARVEDILOL 12.5 MG TAB PO SCH (22:00)
[2024-07-10] MEDS ORDERED: hydrALAZINE HCL 25 MG TAB PO SCH (22:00)
[2024-07-10 22:22] VITALS: BP 116/51; PULSE 51; RESP 17; TEMP 98.1; O2SAT 98
[2024-07-10] MEDS: HYDROcodone-ACET 5/325MG TAB PO PRN (22:50)
[2024-07-10 23:11] VITALS: BP 116/51; PULSE 51; RESP 17; RESP 19; TEMP 98.1; O2SAT 98
[2024-07-10 23:26] LABS: Urine Bacteria None Seen /hpf (None Seen)
[2024-07-11] VITALS (7 sets, daily range): BP systolic 122–133; BP diastolic 45–67; PULSE 45–81; RESP 16–20; TEMP 97.3–97.9; O2SAT 96–100
[2024-07-11 00:17] LABS: Urine Blood Negative /uL (Negative); Urine Budding Yeast OCCASIONAL /hpf (None Seen); Urine Clarity Clear (Clear); Urine Color Yellow (Yellow); Urine Mucus FEW (None Seen); Urine Protein, UAD 1+ (Negative); Urine Specific Gravity 1.029 (1.001-1.035); Urine Squamous Epithelial Cell FEW /hpf (<5); Urine Urobilinogen 3 mg/dL (Negative); Urine WBC 35 /HPF (0-5)
[2024-07-11 07:36] LABS: Alanine Aminotransferase 13 U/L (7-40); Alkaline Phosphatase 60 U/L (46-116); Anion Gap 9 (5-15); BUN/Creatinine Ratio 33.3 (10.0-20.0); Blood Urea Nitrogen 21 mg/dL (9-23); Calcium 9.4 mg/dL (8.7-10.4); Carbon Dioxide 24 mmol/L (20-31); Glucose 96 mg/dL (74-106); Potassium 4.1 mmol/L (3.5-5.1); Sodium 142 mmol/L (136-145)
[2024-07-11 07:37] LABS: Albumin 3.5 g/dL (3.2-4.8); Aspartate Aminotransferase 16 U/L (13-40); Chloride 109 mmol/L (98-107); Total Protein 5.3 g/dL (5.7-8.2)
[2024-07-11 07:38] LABS: Bilirubin, Total 0.2 mg/dL (0.2-1.0)
[2024-07-11 08:56] LABS: Basophils # (auto) 0 10 ^3/uL (0-0.2); Basophils % (auto) 0.6 % (0.0-2.0); Eosinophils # (auto) 0.1 10 ^3/uL (0-0.8); Eosinophils % (auto) 2.4 % (0.0-7.0); Hematocrit 37.6 % (36.0-46.0); Hemoglobin 12.4 g/dL (12.2-16.2); Lymphocytes # (auto) 1.2 10 ^3/uL (0.4-5.4); Lymphocytes % (auto) 26.9 % (10.0-50.0); Mean Corpuscular Hgb Conc. 32.9 g/dL (32.0-36.0); Mean Corpuscular Volume 94.3 fL (80.0-100.0); Monocytes # (auto) 0.4 10 ^3/uL (0-1.3); Monocytes % (auto) 8.9 % (0.0-12.0); Neutrophils # (auto) 2.7 10 ^3/uL (1.6-8.6); Neutrophils % (auto) 61.2 % (37.0-80.0); Platelet Count (auto) 126 10^3/uL (140-450); Red Blood Cells 3.98 10^6/uL (4.0-5.20); Red Cell Distribution Width 14.2 % (11.8-14.3); White Blood Cell 4.4 10^3/uL (4.4-10.8)
[2024-07-11] MEDS: hydroCHLOROthiazide 25 MG TAB PO SCH (09:06)
[2024-07-11] MEDS: SPIRONOLACTONE 25 MG TAB PO SCH (09:06)
[2024-07-11] MEDS: ASPirin-EC 81 mg tab PO SCH (09:06)
[2024-07-11] MEDS: NIFEdipine ER 30 MG TAB PO SCH (09:07)
[2024-07-11] MEDS ORDERED: hydroCHLOROthiazide 25 MG TAB PO SCH (10:00)
[2024-07-11] MEDS ORDERED: PATIENTS OWN MEDICATION (Hydrochlorothiazide 1 TAB) PO SCH (10:00)
[2024-07-11] MEDS ORDERED: amLODIPine BESYLATE 5 MG TAB PO SCH (10:00)
[2024-07-11] MEDS ORDERED: PATIENTS OWN MEDICATION (Rosuvastatin Calcium 1 TAB) PO SCH (10:00)
--- NOTE | 2024-07-11 11:07 | DVHPN2 ---
Subjective 68 year old female with a history of hypertension came with a chief complaint of chest pain She was here recently and had workup for the chest pain with a negative stress test Her pain she describes it as a sharp pain on the left side, her blood pressure was high but now it is better controlled Changes from previous H/P or p: Changes Eyes: No Pain, No Vision change, No Conjunctivae inflammation, No Eyelid inflammation, No Other, No Redness ENT: No Ear pain, No Ear discharge, No Nose pain, No Nose discharge, No Nose congestion, No Mouth pain, No Mouth swelling, No Throat pain, No Throat swelling, No Other Cardiovascular: Chest Pain; No Palpitations, No Orthopnea, No Paroxysmal Noc. Dyspnea, No Edema, No Lt Headedness, No Other Respiratory: No Cough, No Dry, No Shortness of breath, No SOB with excertion, No Wheezing, No Hemoptysis, No Pleuritic Pain, No Sputum, No Other Gastrointestinal: Nausea; No Vomiting, No Abdominal Pain, No Diarrhea, No Constipation, No Melena, No Hematochezia, No Other Genitourinary: No Dysuria, No Frequency, No Incontinence, No Hematuria, No Retention, No Other Musculoskeletal: No other, No neck pain, No shoulder pain, No arm pain, No back pain, No hand pain, No leg pain, No foot pain Skin: No Rash, No Lesions, No Jaundice, No Bruising, No Other Objective Vitals Vital Signs Date Time Temp Pulse Resp B/P (MAP) Pulse Ox O2 Delivery O2 Flow Rate FiO2 07/11/24 09:07 122/50 07/11/24 09:00 97.9 54 16 98 97.9 07/11/24 08:00 Room Air* 0 21 Intake/Output Intake and Output 07/11/24 07:00 Intake Total 225 ml Balance 225 ml Intake Oral 225 ml # Voids 1 General Appearance: Alert, Oriented X3, Cooperative Lungs: Clear to auscultation, Normal air movement Cardiovascular: Regular rate, Normal S1, Normal S2 Abdomen: Normal bowel sounds, Soft, No tenderness Extremities: Other (2+ edema bilaterally in the legs) Medications Current Medications Medications Dose Ordered Sig/Alfonso Route Start Time Stop Time Status Last Admin Dose Admin Sodium Chloride 10 ml Q8HR IV 07/10/24 22:00 07/11/24 05:11 10 ML Acetaminophen/ Hydrocodone Bitart 1 tab Q4HP PRN PO 07/10/24 16:45 07/11/24 09:16 1 TAB Ondansetron HCl 4 mg Q4HP PRN IV 07/10/24 16:45 Docusate Sodium 100 mg BIDPRN PRN PO 07/10/24 16:45 Acetaminophen 650 mg Q6HP PRN PO 07/10/24 16:45 Nitroglycerin 0.4 mg Q5MINP PRN SL 07/10/24 16:45 Morphine Sulfate 2 mg Q30M PRN IV 07/10/24 16:45 Aspirin 81 mg DAILY PO 07/11/24 10:00 07/11/24 09:06 81 MG Gabapentin 100 mg TID PO 07/10/24 22:00 07/11/24 05:11 100 MG Spironolactone 25 mg DAILY PO 07/11/24 10:00 07/11/24 09:06 25 MG Patient Own Medication 1 tab DAILY PO 07/11/24 10:00 UNV Patient Own Medication 1 tab DAILY PO 07/11/24 10:00 UNV Patient Own Medication 1 tab Q4HPRN PRN PO 07/10/24 16:45 UNV Atorvastatin Calcium 20 mg HS PO 07/10/24 22:00 07/10/24 21:30 20 MG Hydrochlorothiazide 25 mg DAILY PO 07/11/24 10:00 07/11/24 09:06 25 MG Hydralazine HCl 10 mg Q6HP PRN IV 07/10/24 18:15 Nifedipine 90 mg DAILY PO 07/11/24 10:00 07/11/24 09:07 90 MG Laboratory Results Laboratory Tests 07/11/24 05:40 07/11/24 08:41 Chemistry Test 07/10/24 12:18 07/11/24 05:40 Albumin 4.2 g/dL (3.2-4.8) 3.5 g/dL (3.2-4.8) Calcium Level 9.5 mg/dL (8.7-10.4) 9.4 mg/dL (8.7-10.4) Total Protein 6.3 g/dL (5.7-8.2) 5.3 g/dL (5.7-8.2) L LFT Test 07/10/24 12:18 07/11/24 05:40 Alanine Aminotransferase (ALT) 18 U/L (7-40) 13 U/L (7-40) Alkaline Phosphatase 95 U/L (46-116) 60 U/L (46-116) Aspartate Amino Transferase (AST) 26 U/L (13-40) 16 U/L (13-40) Total Bilirubin 0.3 mg/dL (0.2-1.0) 0.2 mg/dL (0.2-1.0) Urinalysis Test 07/10/24 23:26 Urine Color Yellow (Yellow) Urine Clarity Clear (Clear) Urine pH 7.0 (5.0-9.0) Urine Specific [place] 1.029 (1.001-1.035) Urine Protein 1+ (Negative) H Urine Ketones Trace (Negative) Urine Blood Negative /uL (Negative) Urine Nitrite Negative (Negative) Urine Bilirubin Negative (Negative) Urine Urobilinogen 3 mg/dL (Negative) H Urine Leukocyte Esterase 1+ /uL (Negative) Urine RBC 3 /hpf (0 - 4) Urine Microscopic WBC 35 /HPF (0-5) H Urine Squamous Epithelial Cells Few /hpf (<5) Urine Bacteria None seen /hpf (None Seen) Urine Mucus Few (None Seen) Urine Yeast (Budding) Occasional /hpf (None Urine Glucose Normal mg/dL (Normal) Assessment/Plan Assessment/Plan Chest pain most likely musculoskeletal in origin Hypertension Hypertensive urgency Chronic diastolic heart failure Moderate tricuspid regurgitation Mixed hyperlipidemia Chronic lymphedema Obesity Plan Aspirin 81 mg daily Lipitor 20 mg daily Gabapentin 100 mg t.i.d. Hydralazine IV p.r.n. Hydrochlorothiazide 25 mg daily Nifedipine ER 90 mg daily Aldactone 25 mg daily Monitor in the hospital 1 more day The patient had cardiac workup last admission so there is no need for further tests Consult social sciences chair to arrange transportation to go home tomorrow if she is discharged Plan discussed with: Patient Date of Service: Jul 11, 2024 Billing Provider: RUSSELL CORONA MD Common Visit Codes: NOT BILLABLE RUSSELL CORONA MD Jul 11, 2024 11:07
--- NOTE | 2024-07-11 14:32 | CONS ---
Home Medication Review Med Rec on Admission: Scheduled Aspirin (Aspir-Low), 81 MG PO DAILY, (Reported) Gabapentin (Gabapentin), 1 CAP PO TID, (Reported) Hydralazine HCl (Hydralazine HCl), 1 TAB PO TID, (Reported) Hydrochlorothiazide (Hydrochlorothiazide), 1 TAB PO DAILY, (Reported) Olmesartan Medoxomil (Benicar), 1 TAB PO DAILY, (Reported) Rosuvastatin Calcium (Rosuvastatin Calcium), 1 TAB PO DAILY, (Reported) Spironolactone (Spironolactone), 1 TAB PO DAILY, (Reported) Scheduled PRN Clonidine Hydrochloride (Clonidine Hcl), 1 TAB PO Q4HPRN PRN, (Reported) Discontinued Medications Meclizine HCl (Meclizine), 25 MG PO BID Tramadol HCl (Tramadol HCl), 50 MG PO Q6HP PRN Med Rec on Discharge: Electronic Scripts Reported Medications Olmesartan Medoxomil (Benicar) 20 Mg Tab, 1 TAB PO DAILY for 90 Days, #90 07/11/24 Clonidine Hydrochloride (Clonidine Hcl) 0.2 Mg Tab, 1 TAB PO Q4HPRN PRN 07/10/24 Hydralazine HCl (Hydralazine HCl) 25 Mg Tab, 1 TAB PO TID 07/10/24 Spironolactone (Spironolactone) 25 Mg Tab, 1 TAB PO DAILY for 90 Days, #90 06/28/24 Rosuvastatin Calcium (Rosuvastatin Calcium) 40 Mg Tab, 1 TAB PO DAILY for 90 Days, #90 06/10/24 Aspirin (Aspir-Low) 81 Mg Tab, 81 MG PO DAILY for 30 Days, MG 06/10/24 Hydrochlorothiazide (Hydrochlorothiazide) 12.5 Mg Tab, 1 TAB PO DAILY for 30 Days, #30 06/10/24 Gabapentin (Gabapentin) 100 Mg Cap, 1 CAP PO TID for 30 Days, #90 02/29/24 Discontinued Scripts Meclizine HCl (Meclizine) 25 Mg Chw, 25 MG PO BID for 5 Days, #10 CHW Prov:TREVON MAURER MD 06/18/24 Tramadol HCl (Tramadol HCl) 50 Mg Tab, 50 MG PO Q6HP PRN, #30 TAB Prov:RUSSELL CORONA MD 06/11/24 Notes Notes: Added: Olmesartan medoxomil 20 mg tab. Take 1 tablet by mouth daily. Removed: Amlodipine besylate 5 mg tab. Patient has allergy to amlodipine with peripheral edema. Discharge Data Labs: Laboratory Results Test 07/11/24 08:41 07/11/24 05:40 07/10/24 23:26 07/10/24 12:07 White Blood Count 4.4 10^3/uL (4.4-10.8) Red Blood Count 3.98 10^6/uL (4.0-5.20) Hemoglobin 12.4 g/dL (12.2-16.2) Hematocrit 37.6 % (36.0-46.0) Mean Corpuscular Volume 94.3 fL (80.0-100.0) Mean Corpuscular Hemoglobin 31.0 pg (28.0-32.0) Mean Corpuscular Hemoglobin Concent 32.9 g/dL (32.0-36.0) Red Cell Distribution Width 14.2 % (11.8-14.3) Platelet Count 126 10^3/uL (140-450) Mean Platelet Volume 11.8 fL (6.9-10.8) Neutrophils (%) (Auto) 61.2 % (37.0-80.0) Lymphocytes (%) (Auto) 26.9 % (10.0-50.0) Monocytes (%) (Auto) 8.9 % (0.0-12.0) Eosinophils (%) (Auto) 2.4 % (0.0-7.0) Basophils (%) (Auto) 0.6 % (0.0-2.0) Neutrophils # (Auto) 2.7 10 ^3/uL (1.6-8.6) Lymphocytes # (Auto) 1.2 10 ^3/uL (0.4-5.4) Monocytes # (Auto) 0.4 10 ^3/uL (0-1.3) Eosinophils # (Auto) 0.1 10 ^3/uL (0-0.8) Basophils # (Auto) 0 10 ^3/uL (0-0.2) Nucleated Red Blood Cells 0.0 % Sodium Level 142 mmol/L (136-145) Potassium Level 4.1 mmol/L (3.5-5.1) Chloride Level 109 mmol/L (98-107) Carbon Dioxide Level 24 mmol/L (20-31) Anion Gap 9 (5-15) Blood Urea Nitrogen 21 mg/dL (9-23) Creatinine 0.63 mg/dL (0.550-1.02) Glomerular Filtration Rate Calc 95 mL/min (>90) BUN/Creatinine Ratio 33.3 (10.0-20.0) Serum Glucose 96 mg/dL (74-106) Calcium Level 9.4 mg/dL (8.7-10.4) Total Bilirubin 0.2 mg/dL (0.2-1.0) Aspartate Amino Transferase (AST) 16 U/L (13-40) Alanine Aminotransferase (ALT) 13 U/L (7-40) Alkaline Phosphatase 60 U/L (46-116) Total Protein 5.3 g/dL (5.7-8.2) Albumin 3.5 g/dL (3.2-4.8) Urine Color Yellow (Yellow) Urine Clarity Clear (Clear) Urine pH 7.0 (5.0-9.0) Urine Specific [place] 1.029 (1.001-1.035) Urine Protein 1+ (Negative) Urine Ketones Trace (Negative) Urine Blood Negative /uL (Negative) Urine Nitrite Negative (Negative) Urine Bilirubin Negative (Negative) Urine Urobilinogen 3 mg/dL (Negative) Urine Leukocyte Esterase 1+ /uL (Negative) Urine RBC 3 /hpf (0 - 4) Urine Microscopic WBC 35 /HPF (0-5) Urine Squamous Epithelial Cells Few /hpf (<5) Urine Bacteria None seen /hpf (None Seen) Urine Mucus Few (None Seen) Urine Yeast (Budding) Occasional /hpf (None Urine Glucose Normal mg/dL (Normal) Troponin I High Sensitivity 11 ng/L (</=34) Other Laboratory Tests 07/11/24 08:41 07/11/24 05:40 [facility] Jul 11, 2024 14:32
[2024-07-11] MEDS: MORPHINE SULFATE INJ 2 MG/ml SYRG IV PRN (17:54)
[2024-07-12] VITALS (7 sets, daily range): BP systolic 112–139; BP diastolic 47–85; PULSE 52–96; RESP 17–20; TEMP 97.6–98.2; O2SAT 93–98
[2024-07-12] MEDS: NIFEdipine ER 30 MG TAB PO ONE (10:00)
[2024-07-12] MEDS ORDERED: NIFE1TAB30 PO (10:37)
--- NOTE | 2024-07-12 10:42 | DVHDS2 ---
Discharge Summary Date of Admission Jul 10, 2024 at 16:38 Date of Discharge: Jul 12, 2024 Labs/Diagnostic Data: Laboratory Results Test 07/11/24 08:41 07/11/24 05:40 07/10/24 23:26 07/10/24 12:07 White Blood Count 4.4 10^3/uL (4.4-10.8) Red Blood Count 3.98 10^6/uL (4.0-5.20) Hemoglobin 12.4 g/dL (12.2-16.2) Hematocrit 37.6 % (36.0-46.0) Mean Corpuscular Volume 94.3 fL (80.0-100.0) Mean Corpuscular Hemoglobin 31.0 pg (28.0-32.0) Mean Corpuscular Hemoglobin Concent 32.9 g/dL (32.0-36.0) Red Cell Distribution Width 14.2 % (11.8-14.3) Platelet Count 126 10^3/uL (140-450) Mean Platelet Volume 11.8 fL (6.9-10.8) Neutrophils (%) (Auto) 61.2 % (37.0-80.0) Lymphocytes (%) (Auto) 26.9 % (10.0-50.0) Monocytes (%) (Auto) 8.9 % (0.0-12.0) Eosinophils (%) (Auto) 2.4 % (0.0-7.0) Basophils (%) (Auto) 0.6 % (0.0-2.0) Neutrophils # (Auto) 2.7 10 ^3/uL (1.6-8.6) Lymphocytes # (Auto) 1.2 10 ^3/uL (0.4-5.4) Monocytes # (Auto) 0.4 10 ^3/uL (0-1.3) Eosinophils # (Auto) 0.1 10 ^3/uL (0-0.8) Basophils # (Auto) 0 10 ^3/uL (0-0.2) Nucleated Red Blood Cells 0.0 % Sodium Level 142 mmol/L (136-145) Potassium Level 4.1 mmol/L (3.5-5.1) Chloride Level 109 mmol/L (98-107) Carbon Dioxide Level 24 mmol/L (20-31) Anion Gap 9 (5-15) Blood Urea Nitrogen 21 mg/dL (9-23) Creatinine 0.63 mg/dL (0.550-1.02) Glomerular Filtration Rate Calc 95 mL/min (>90) BUN/Creatinine Ratio 33.3 (10.0-20.0) Serum Glucose 96 mg/dL (74-106) Calcium Level 9.4 mg/dL (8.7-10.4) Total Bilirubin 0.2 mg/dL (0.2-1.0) Aspartate Amino Transferase (AST) 16 U/L (13-40) Alanine Aminotransferase (ALT) 13 U/L (7-40) Alkaline Phosphatase 60 U/L (46-116) Total Protein 5.3 g/dL (5.7-8.2) Albumin 3.5 g/dL (3.2-4.8) Urine Color Yellow (Yellow) Urine Clarity Clear (Clear) Urine pH 7.0 (5.0-9.0) Urine Specific [place] 1.029 (1.001-1.035) Urine Protein 1+ (Negative) Urine Ketones Trace (Negative) Urine Blood Negative /uL (Negative) Urine Nitrite Negative (Negative) Urine Bilirubin Negative (Negative) Urine Urobilinogen 3 mg/dL (Negative) Urine Leukocyte Esterase 1+ /uL (Negative) Urine RBC 3 /hpf (0 - 4) Urine Microscopic WBC 35 /HPF (0-5) Urine Squamous Epithelial Cells Few /hpf (<5) Urine Bacteria None seen /hpf (None Seen) Urine Mucus Few (None Seen) Urine Yeast (Budding) Occasional /hpf (None Urine Glucose Normal mg/dL (Normal) Troponin I High Sensitivity 11 ng/L (</=34) Other Laboratory Tests 07/11/24 08:41 07/11/24 05:40 Brief Hx & Hospital Course: Final diagnoses: Chest pain most likely musculoskeletal in origin Hypertension Hypertensive urgency Chronic diastolic heart failure Moderate tricuspid regurgitation Mixed hyperlipidemia Chronic lymphedema Obesity Her BP was high at home, slightly high on admission, better after she was admitted Now she c/o CP, cardiac workup last admission was negative HR 50s, and lower when sleeping c/o dizziness BP is well controlled now DC home on following: HCTZ 25 mg qd Aldactone 25 mg qd Nifedipine 60 mg qd F/U w PCP KAYLA Condition at Discharge: Stable Final Diagnosis/Problems List Chest pain most likely musculoskeletal in origin Hypertension Hypertensive urgency Chronic diastolic heart failure Moderate tricuspid regurgitation Mixed hyperlipidemia Chronic lymphedema Obesity Discharge Disposition: Home SNF Discharge Will this Physician continue t: No Discharge Instruct/Medications Diet: Cardiac 2g Na,low cholest Activity: No Restrictions, As Tolerated Follow Up/Referral: PCP KAYLA Medications: Nifedipine 60 mg qd Spironolactone 25 mg qd HCTZ 25 mg qd Use Clonidine only prn sbp>160 Discharge Statement: "Patient was advised to return to the ER or call 911 if any headaches, dizziness, shortness of breath, chest pain, abdominal pain, bleeding, fevers, or worsening of medical condition. Patient was counseled about treatment plan, medications, possible side effects, patientverbalized understanding. All questions were answered to the best of my ability. This discharge took greater then 30 minutes in planning, reviewing documentation, counseling the patient, and discussing with other team members." ASSESSMENT ASSESSMENT Assessment Chest pain most likely musculoskeletal in origin Hypertension Hypertensive urgency Chronic diastolic heart failure Moderate tricuspid regurgitation Mixed hyperlipidemia Chronic lymphedema Obesity Date of Service: Jul 12, 2024 Billing Provider: RUSSELL CORONA MD Common Visit Codes: NOT BILLABLE RUSSELL CORONA MD Jul 12, 2024 10:42
[2024-07-13] MEDS ORDERED: NIFEdipine ER 30 MG TAB PO SCH (10:00)
== END 2024-07-12 17:05 | disposition home or self-care (01) | DRG 313 ==
LOC: EDBD 10:44 → ER 10:44 → OVERFLOW 16:38 → TELE-WESTW 22:22
PROVIDERS: ADMIT Internal Medicine Geriatric Medicine; ATTEND Internal Medicine Geriatric Medicine
DX: R07.89 Other chest pain (principal); I50.32 Chronic diastolic (congestive) heart failure; I16.0 Hypertensive urgency; I11.0 Hypertensive heart disease with heart failure; E78.5 Hyperlipidemia, unspecified; I89.0 Lymphedema, not elsewhere classified; I07.1 Rheumatic tricuspid insufficiency; I25.10 Atherosclerotic heart disease of native coronary artery without angina pectoris; J45.909 Unspecified asthma, uncomplicated; I48.91 Unspecified atrial fibrillation; E78.2 Mixed hyperlipidemia; G62.9 Polyneuropathy, unspecified; E66.9 Obesity, unspecified; Z88.1 Allergy status to other antibiotic agents; Z82.49 Family history of ischemic heart disease and other diseases of the circulatory system; Z79.82 Long term (current) use of aspirin; Z79.899 Other long term (current) drug therapy; Z68.30 Body mass index [BMI] 30.0-30.9, adult
CPT/HCPCS: 36415; 71045; 80053; 81001; 84484; 85025; 87081; 93005; G0378

== ENCOUNTER 2024-07-29 17:59 | Inpatient (IN) | payer OTHER ==
[~2024-07-29] VITALS: Ht 160 cm; Wt 101.5 kg
[~2024-07-29 17:59] MED LIST changes: +AMLO1TAB22 PO; +CLON0.2T PO; +HYDR25TA87 PO; -MECL25CH38 PO; +NIFE1TAB30 PO; -OLME20TA53 PO; +OLME40TA76 PO; -TRAM-626 PO; +TRAM50TA2 PO
--- NOTE | 2024-07-29 18:28 | ED.PDOC ---
History of Present Illness HPI Comments 68 y.o female with PMHx of Asthma, AFIB, HTN, CHF, CAD, cardiac valve replacement, presents to the ED via EMS for ongoing generalized weakness for weeks. Patient reports being seen multiple times at this hospital, [facility] and [facility] for same complaint which is usually due to her reoccurring hypotensive episodes. Patient reports feeling the same every visit with no recovery states in between. Patient denies any chest pain, nausea, vomiting, SOB, fever or chills. Chief Complaint: General Weakness Time Seen by MD: 18:15 Primary Care Provider: JENELLE Reviewed Notes: Nurses Notes, Electronic Maintenance Supervisor Notes, Medications, Allergies Allergies: Coded Allergies: Sulfa Antibiotics (Verified Allergy, Unknown, 11/25/23) Amlodipine (Unverified Adverse Reaction, Unknown, 07/10/24) Peripheral edema Home Meds Active Scripts Nifedipine (Nifedipine Er) 60 Mg Tab, 1 TAB PO DAILY, #30 TAB 5 Refills Prov:RUSSELL CORONA MD 07/12/24 Reported Medications Clonidine Hydrochloride (Clonidine Hcl) 0.2 Mg Tab, 1 TAB PO Q4HPRN PRN 07/10/24 Spironolactone (Spironolactone) 25 Mg Tab, 1 TAB PO DAILY for 90 Days, #90 06/28/24 Rosuvastatin Calcium (Rosuvastatin Calcium) 40 Mg Tab, 1 TAB PO DAILY for 90 Days, #90 06/10/24 Aspirin (Aspir-Low) 81 Mg Tab, 81 MG PO DAILY for 30 Days, MG 06/10/24 Hydrochlorothiazide (Hydrochlorothiazide) 12.5 Mg Tab, 1 TAB PO DAILY for 30 Days, #30 06/10/24 Gabapentin (Gabapentin) 100 Mg Cap, 1 CAP PO TID for 30 Days, #90 02/29/24 Information Source: Patient, Emergency Med Personnel Mode of Arrival: EMS Severity: Moderate Timing: Weeks Duration: Since onset Past Medical History PAST MEDICAL HISTORY: AFIB, Asthma, CAD, CHF, High Lipids, HTN Surgical History (Other): leg MACHINE PROGRAMMER 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: No Pertinent MACHINE PROGRAMMER History Family History Family History: Reviewed,noncontributory to illness, Unknown Social History Smoker: Non-Smoker Alcohol: Denies ETOH Use Drugs: Denies Drug Use Lives In: Home Constitutional: reports: weakness; denies: chills, diaphoresis, fatigue, fever, malaise, sweats, others EENTM: denies: blurred vision, double vision, ear bleeding, ear discharge, ear drainage, ear pain, ear ringing, eye pain, eye redness, hearing loss, mouth pain, mouth swelling, nasal discharge, nose bleeding, nose congestion, nose pain, photophobia, tearing, throat pain, throat swelling, voice changes, others Respiratory: denies: cough, hemoptysis, orthopnea, SOB at rest, shortness of breath, SOB with excertion, stridor, wheezing, others Cardiovascular: denies: chest pain, dizzy spells, diaphoresis, Dyspnea on exertion, edema, irregular heart beat, left arm pain, lightheadedness, palpitations, PND, syncope, others Gastrointestinal: denies: abdomen distended, abdominal pain, blood streaked bowels, constipated, diarrhea, dysphagia, difficulty swallowing, hematemesis, melena, nausea, poor appetite, poor fluid intake, rectal bleeding, rectal pain, vomiting, others Genitourinary: denies: abnormal vagina bleeding, burning, dyspareunia, dysuria, flank pain, frequency, hematuria, incontinence, pain, , vagina discharge, urgency, others Neurological: denies: dizziness, fainting, headache, left sided numbness, left sided weakness, numbness, paresthesia, pre-existing deficit, right sided numbness, right sided weakness, seizure, speech problems, tingling, tremors, weakness, others Musculoskeletal: denies: back pain, gout, joint pain, joint swelling, muscle pain, muscle stiffness, neck pain, others Integumetry: denies: bruises, change in color, change in hair/nails, dryness, laceration, lesions, lumps, rash, wounds, others Allergic/Immunocompromised: denies: Difficulty Healing, Frequent Infections, Hives, Itching, others Hematologic/Lymphatic: denies: anemia, blood clots, easy bleeding, easy bruising, swollen glands, others Endocrine: denies: excessive hunger, excessive sweating, excessive thirst, excessive urination, flushing, intolerance to cold, intolerance to heat, unexplained weight gain, unexplained weight loss, others Psychiatric: denies: anxiety, bipolar disorder, depression, hopeless, panic disorder, schizophrenia, sleepless, suicidal, others All Other Systems: Reviewed and Negative Physical Exam General Appearance: No Apparent Distress HEENT: Normal ENT Inspection, Pharynx Normal, TMs Normal Neck: Full Range of Motion, Non-Tender, Normal, Normal Inspection Respiratory: Chest Non-Tender, Lungs Clear, No Accessory Muscle Use, No Respiratory Distress, Normal Breath Sounds Cardiovascular: No Edema, No JVD, No Murmur, No Gallop, Normal Peripheral Pulses, Regular Rate/Rhythm Breast Exam: Deferred Gastrointestinal: No Organomegaly, Non Tender, No Pulsatile Mass, Normal Bowel Sounds, Soft Genitalia: Deferred Pelvic: Deferred Rectal: Deferred Extremities: No calf tenderness, Normal capillary refill, Pedal edema Musculoskeletal : Apperance: Normal Neurologic: Alert, home coordinator II-XII nml as Tested, No Motor Deficits, Normal Affect, Normal Mood, No Sensory Deficits Cerebellar Function: Normal Reflexes: Normal Skin: Dry, Normal Color, Warm Lymphatic: No Adenopathy Was a procedure done? Was a procedure done?: No Differential Dx Considerations may include: Dehydration, Electrolyte imbalance, hypotension, viral syndrome, URI, influenza X-Ray, Labs, Meds, VS Vital Signs Date Time Temp Pulse Resp B/P (MAP) Pulse Ox O2 Delivery O2 Flow Rate FiO2 07/29/24 18:19 98.3 66 18 97/50 (66) 98 98.3 Lab Test 07/29/24 18:22 Range/Units White Blood Count 5.8 4.4-10.8 10^3/uL Red Blood Count 4.34 4.0-5.20 10^6/uL Hemoglobin 13.5 12.2-16.2 g/dL Hematocrit 40.4 36.0-46.0 % Mean Corpuscular Volume 93.0 80.0-100.0 fL Mean Corpuscular Hemoglobin 31.0 28.0-32.0 pg Mean Corpuscular Hemoglobin Concent 33.4 32.0-36.0 g/dL Red Cell Distribution Width 14.1 11.8-14.3 % Platelet Count 172 140-450 10^3/uL Mean Platelet Volume 11.8 H 6.9-10.8 fL Neutrophils (%) (Auto) 47.5 37.0-80.0 % Lymphocytes (%) (Auto) 40.4 10.0-50.0 % Monocytes (%) (Auto) 10.9 0.0-12.0 % Eosinophils (%) (Auto) 0.9 0.0-7.0 % Basophils (%) (Auto) 0.3 0.0-2.0 % Neutrophils # (Auto) 2.7 1.6-8.6 10 ^3/uL Lymphocytes # (Auto) 2.3 0.4-5.4 10 ^3/uL Monocytes # (Auto) 0.6 0-1.3 10 ^3/uL Eosinophils # (Auto) 0.1 0-0.8 10 ^3/uL Basophils # (Auto) 0 0-0.2 10 ^3/uL Nucleated Red Blood Cells 0.3 % Sodium Level 142 136-145 mmol/L Potassium Level 4.1 3.5-5.1 mmol/L Chloride Level 105 98-107 mmol/L Carbon Dioxide Level 25 20-31 mmol/L Anion Gap 12 5-15 Blood Urea Nitrogen 42 H 9-23 mg/dL Creatinine 1.53 H 0.550-1.02 mg/dL Glomerular Filtration Rate Calc 36 >90 mL/min BUN/Creatinine Ratio 27.5 H 10.0-20.0 Serum Glucose 104 74-106 mg/dL Calcium Level 10.0 8.7-10.4 mg/dL The patient's CBC is within normal limits The chemistry panel shows a BUN of 42 and a creatinine of 1.53 The rest of the chemistry panel is within normal limits The patient was being discharged and will follow up with the primary care doctor The patient was returned to the emergency department's the condition worsens. Time of 1ST Reevaluation: 18:22 Reevaluation 1ST: Unchanged Time of 2ND Reevaluation: 20:35 Reevaluation 2ND: Improved Patient Education/Counseling: Diagnosis, Treatment, Prognosis, Need For Follow Up Family Education/Counseling: No Family Present Departure 1 Departure Time of Disposition: 20:34 Impression: Primary Impression: Generalized weakness Disposition: 01 HOME / SELF CARE / HOMELESS Condition: Fair Discharged With: Self Critical Care Note Critical Care Time?: No Stability Stability form required: No I personally scribed for TREVON MAURER MD ([email or web address]) on 07/29/24 at 18:28. Electronically submitted by Aniyah Rodriguez ([facility]). TREVON MAURER MD Jul 29, 2024 18:28
[2024-07-29 18:50] LABS: Chloride 105 mmol/L (98-107); Potassium 4.1 mmol/L (3.5-5.1); Sodium 142 mmol/L (136-145)
[2024-07-29 18:51] LABS: Anion Gap 12 (5-15); Carbon Dioxide 25 mmol/L (20-31)
[2024-07-29 18:52] LABS: Basophils # (auto) 0 10 ^3/uL (0-0.2); Basophils % (auto) 0.3 % (0.0-2.0); Eosinophils # (auto) 0.1 10 ^3/uL (0-0.8); Eosinophils % (auto) 0.9 % (0.0-7.0); Hematocrit 40.4 % (36.0-46.0); Hemoglobin 13.5 g/dL (12.2-16.2); Lymphocytes # (auto) 2.3 10 ^3/uL (0.4-5.4); Lymphocytes % (auto) 40.4 % (10.0-50.0); Mean Corpuscular Hgb Conc. 33.4 g/dL (32.0-36.0); Monocytes # (auto) 0.6 10 ^3/uL (0-1.3); Monocytes % (auto) 10.9 % (0.0-12.0); Neutrophils # (auto) 2.7 10 ^3/uL (1.6-8.6); Neutrophils % (auto) 47.5 % (37.0-80.0); Nucleated Red Blood Cells % 0.3 %; Platelet Count (auto) 172 10^3/uL (140-450); Red Blood Cells 4.34 10^6/uL (4.0-5.20); Red Cell Distribution Width 14.1 % (11.8-14.3); White Blood Cell 5.8 10^3/uL (4.4-10.8)
[2024-07-29 18:56] LABS: BUN/Creatinine Ratio 27.5 (10.0-20.0); Glucose 104 mg/dL (74-106)
[2024-07-29 18:57] LABS: Blood Urea Nitrogen 42 mg/dL (9-23)
[2024-07-29] MEDS ORDERED: ONDANSETRON HCL 4 MG/2 ML VIAL IV PRN (22:30)
[2024-07-29] MEDS ORDERED: MORPHINE SULFATE INJ 2 MG/ml SYRG IV PRN (22:30)
[2024-07-29] MEDS: SODIUM CHLORIDE 0.9% 1,000 ML IV ONE (22:30)
[2024-07-29] MEDS: SODIUM CHLORIDE 0.9% 500 ML IV ONE (22:59)
[2024-07-30 00:30] VITALS: PULSE 53; RESP 14; O2SAT 98
--- NOTE | 2024-07-30 00:32 | DVHHP2 ---
History of Present Illness Reason for Visit: Dizziness History of Present Illness 68-year-old female presents for evaluation of dizziness. Patient reports a three day history of worsening dizziness. She was seen by her primary care provider who advised her to present to the emergency department for further evaluation due to hypotension. On arrival patient's blood pressure was in the low 80s. She reports dizziness mild shortness for breath and chest tightness. Denies fever or chills. No other acute complaints reported Past Medical History CAD, CHF, asthma, atrial fibrillation, dyslipidemia, hypertension Past Surgical History Denies Family History Noncontributory Smoke: No ALCOHOL: none Drugs: None Lives: with Family Review of Systems Review of Systems Review of systems are currently negative otherwise addressed in HPI. Allergies: Coded Allergies: Sulfa Antibiotics (Verified Allergy, Unknown, 11/25/23) Amlodipine (Unverified Adverse Reaction, Unknown, 07/10/24) Peripheral edema Medications Current Medications Medications Dose Ordered Sig/Alfonso Route Start Time Stop Time Status Last Admin Dose Admin Atorvastatin Calcium 40 mg HS PO 07/30/24 22:00 Gabapentin 100 mg TID PO 07/30/24 06:00 Aspirin 81 mg DAILY PO 07/30/24 10:00 Ondansetron HCl 4 mg Q4HP PRN IV 07/29/24 22:30 Acetaminophen 650 mg Q6HP PRN PO 07/29/24 22:30 Nitroglycerin 0.4 mg Q5MINP PRN SL 07/29/24 22:30 Morphine Sulfate 2 mg Q30M PRN IV 07/29/24 22:30 Exam Vital Signs Vital Signs Date Time Temp Pulse Resp B/P (MAP) Pulse Ox O2 Delivery O2 Flow Rate FiO2 07/29/24 23:31 67 17 103/43 (63) 96 07/29/24 21:45 97.6 97.6 07/29/24 21:45 Room Air Exam Gen: 68-year-old female in mild distress Skin: Warm, dry, normal color and texture, no rash. HEENT: Normocephalic atraumatic, mucous membranes moist and pink. Neck: Cervical and supraclavicular nodes normal without enlargement, trachea is midline, thyroid gland is normal without masses. Pulmonary: Clear to auscultation and percussion bilaterally. Cardiac: Regular rate and rhythm. No murmur Abdomen: Soft, nontender, nondistended, bowel sounds present all 4 quadrants, no guarding, no rigidity, no organomegaly. Extremities: No cyanosis, clubbing, no edema Neuro: Cranial nerves II through XII grossly intact, normal affect and speech, no focal motor deficits. Labs/Xrays ORDERING PHYSICIAN: RADHA HARRELL PROCEDURE(s): ECIDC - ECHO 2D MODE CARDIAC DOP REASON: hypertension ORDER NUMBER(s): [id number], ACCESSION NUMBER(s): [id number] APPROVED REPORT EXAM: Two-dimensional and M-mode echocardiogram with Doppler and color Doppler. Blood Pressure: 175/63 mmHg INDICATION Hypertension RISK FACTORS Height: 66, Weight: 186 DIMENSIONS LVDd 4.0 (3.8-5.7cm) LA (2D) 4.0 (1.9-4.0cm) Aortic Root 2.6 (2.0- 3.7cm) LVDs 2.9 (2.5-4.0cm) LA (MM) (1.9-4.0cm) Aortic Cusp Exc 1.2 (1.5- 2.0cm) EF (%) 55.0 (55-70%) Rt. Atrium 4.9 (1.9-4.0cm) Asc. Aorta cm IVSd 1.2 (0.7-1.1cm) RV (D) (1.8-2.4cm) PWd 1.3 (0.7-1.1cm) Mitral Valve Mitral Mitral Stenosis E wave 0.66m/s MV Mean GR. mmHg A wave 1.17m/s MV Peak GR. mmHg E/A ratio 0.6 2D MVA cm2 DECEL Time 241ms PRESS 1/2 Time 87ms IVRT ms Dop MVA 2.54cm2 Aortic Valve Aortic Valve Aortic Stenosis V1 1.80m/s AO Mean GR. 16mmHg V2 2.74m/s AO Peak GR. 30mmHg LVOT Diameter 1.4 (1.8-2.4cm) Doppler ERMA 1.01cm2 AI P 1/2 Time 514.78ms Pulmonic Valve V2 1.41m/s Tricuspid Valve TR Velocity 2.92m/s RVSP 42mmHg Conclusion Sinus rhythm. Biatrial enlargement with concentric LVH. Mild aortic sclerosis. Left ventricular function is preserved at 60% with normal RV function. Mild aortic insufficiency. Moderate tricuspid regurgitation. No pericardial effusion masses or vegetations SIGNED BY: ANNE MARIE GARNETT Sr., MD SIGNED DATE/TIME: 06/10/24 132 Labs Test 07/29/24 18:22 Range/Units White Blood Count 5.8 4.4-10.8 10^3/uL Red Blood Count 4.34 4.0-5.20 10^6/uL Hemoglobin 13.5 12.2-16.2 g/dL Hematocrit 40.4 36.0-46.0 % Mean Corpuscular Volume 93.0 80.0-100.0 fL Mean Corpuscular Hemoglobin 31.0 28.0-32.0 pg Mean Corpuscular Hemoglobin Concent 33.4 32.0-36.0 g/dL Red Cell Distribution Width 14.1 11.8-14.3 % Platelet Count 172 140-450 10^3/uL Mean Platelet Volume 11.8 H 6.9-10.8 fL Neutrophils (%) (Auto) 47.5 37.0-80.0 % Lymphocytes (%) (Auto) 40.4 10.0-50.0 % Monocytes (%) (Auto) 10.9 0.0-12.0 % Eosinophils (%) (Auto) 0.9 0.0-7.0 % Basophils (%) (Auto) 0.3 0.0-2.0 % Neutrophils # (Auto) 2.7 1.6-8.6 10 ^3/uL Lymphocytes # (Auto) 2.3 0.4-5.4 10 ^3/uL Monocytes # (Auto) 0.6 0-1.3 10 ^3/uL Eosinophils # (Auto) 0.1 0-0.8 10 ^3/uL Basophils # (Auto) 0 0-0.2 10 ^3/uL Nucleated Red Blood Cells 0.3 % Sodium Level 142 136-145 mmol/L Potassium Level 4.1 3.5-5.1 mmol/L Chloride Level 105 98-107 mmol/L Carbon Dioxide Level 25 20-31 mmol/L Anion Gap 12 5-15 Blood Urea Nitrogen 42 H 9-23 mg/dL Creatinine 1.53 H 0.550-1.02 mg/dL Glomerular Filtration Rate Calc 36 >90 mL/min BUN/Creatinine Ratio 27.5 H 10.0-20.0 Serum Glucose 104 74-106 mg/dL Calcium Level 10.0 8.7-10.4 mg/dL Troponin I High Sensitivity 10 </=34 ng/L Assessment/Plan Assessment/Plan Assessment Symptomatic hypotension ,? 2/2 Polypharmacy Dyslipidemia Acute kidney injury Plan Admit the patient to telemetry to the hospitalist Maintenance IV fluids Hold antihypertensives and reassess tomorrow Resume home medications Continue treatment per orders. Plan discussed with: Patient My Orders Orders - HARRELLRADHA POZO AGACNP Procedure Category Date Status Time Chest Xray 1 View XY 07/29/24 Logged 22:20 Urinalysis LAB 07/29/24 Logged 22:20 Basic Metabolic Panel LAB 07/30/24 Logged 04:00 Sodium Chloride 0.9% PHA 07/29/24 In Process 22:30 Atorvastatin (Lipitor) PHA 07/30/24 In Process 22:00 Gabapentin Capsule PHA 07/30/24 In Process (Neurontin Capsule) 06:00 Aspirin Tablet PHA 07/30/24 In Process 10:00 Admit ADMIT 07/29/24 Transmitted 22:20 Ondansetron Hcl PHA 07/29/24 In Process (Zofran) 22:30 Complete Blood Count LAB 07/30/24 Logged 04:00 Cardiac DIET 07/30/24 Transmitted Diet-2gna,Lofat,Lochol Breakfast Condition: Fair REX 07/29/24 In Process 22:20 Acetaminophen Tablet PHA 07/29/24 In Process (Tylenol Tablet) 22:30 Bedrest With Bathroom REX 07/29/24 In Process Privileg 22:20 Nitroglycerin PHA 07/29/24 In Process Sublingual (Ntrostat 22:30 Morphine Sulfate PHA 07/29/24 In Process Injection 22:30 Stat Ekg For Chest REX 07/29/24 In Process Pain 22:20 Notify Of Changes REX 07/29/24 In Process From Base 22:20 Proofer Prepress For REX 07/29/24 In Process 24 Hours 22:20 Emergency Dysrhythmia REX 07/29/24 In Process Protocol 22:20 Rhythm Strips Once REX 07/29/24 In Process Every Shift 22:20 Oxygen By Nasal RT 07/29/24 Transmitted Cannula 22:20 Date of Service: Jul 29, 2024 Billing Provider: RADHA HARRELL Common Visit Codes: [id number] INP/OBS CARE (HIGH) RADHA HARRELL Jul 30, 2024 00:32
--- NOTE | 2024-07-30 01:39 | DVH ---
CHEST RADIOGRAPH Indication: sob Technique: Single frontal view of the chest was obtained COMPARISON: XY CHEST XRAY 1 VIEW on DOS: 07/10/24, XY CHEST PORTABLE on DOS: 06/26/24, XY CHEST PORTABLE on DOS: 06/22/24, XY CHEST PORTABLE on DOS: 05/21/24, XY CHEST PORTABLE on DOS: 02/20/24 FINDINGS: Lines and Tubes: None Lungs: Clear Pleura: No effusion. No pneumothorax. Cardiomediastinal contours: Unremarkable Bones: Unremarkable IMPRESSION: 1. No acute disease.
[2024-07-30] MEDS: ACETAMINOPHEN 325 MG TAB PO PRN (02:59)
[2024-07-30 05:08] LABS: Basophils # (auto) 0 10 ^3/uL (0-0.2); Basophils % (auto) 0.5 % (0.0-2.0); Eosinophils # (auto) 0.1 10 ^3/uL (0-0.8); Eosinophils % (auto) 1.4 % (0.0-7.0); Hematocrit 37.4 % (36.0-46.0); Hemoglobin 12.4 g/dL (12.2-16.2); Lymphocytes # (auto) 2.6 10 ^3/uL (0.4-5.4); Lymphocytes % (auto) 39.6 % (10.0-50.0); Mean Corpuscular Hemoglobin 31.2 pg (28.0-32.0); Mean Corpuscular Hgb Conc. 33.1 g/dL (32.0-36.0); Mean Corpuscular Volume 94.3 fL (80.0-100.0); Monocytes # (auto) 0.7 10 ^3/uL (0-1.3); Monocytes % (auto) 11.2 % (0.0-12.0); Neutrophils # (auto) 3.1 10 ^3/uL (1.6-8.6); Neutrophils % (auto) 47.3 % (37.0-80.0); Nucleated Red Blood Cells % 0.1 %; Platelet Count (auto) 144 10^3/uL (140-450); Red Blood Cells 3.97 10^6/uL (4.0-5.20); Red Cell Distribution Width 14.1 % (11.8-14.3); White Blood Cell 6.5 10^3/uL (4.4-10.8)
[2024-07-30 05:27] LABS: Potassium 3.8 mmol/L (3.5-5.1); Sodium 142 mmol/L (136-145)
[2024-07-30 05:28] LABS: Anion Gap 9 (5-15); Carbon Dioxide 24 mmol/L (20-31)
[2024-07-30 05:29] LABS: Calcium 9.9 mg/dL (8.7-10.4)
[2024-07-30 05:33] LABS: BUN/Creatinine Ratio 34.1 (10.0-20.0); Glucose 91 mg/dL (74-106)
[2024-07-30 05:35] LABS: Blood Urea Nitrogen 46 mg/dL (9-23); Chloride 109 mmol/L (98-107)
[2024-07-30] MEDS: GABAPENTIN 100 MG CAP PO SCH (06:14)
[2024-07-30 06:16] LABS: Urine Bacteria None Seen /hpf (None Seen)
[2024-07-30 06:30] LABS: Urine Blood Negative /uL (Negative); Urine Clarity Clear (Clear); Urine Color Light-Yellow (Yellow); Urine Hyaline Cast MOD /lpf (0 - 2); Urine Protein, UAD Negative (Negative); Urine Specific Gravity 1.014 (1.001-1.035); Urine Squamous Epithelial Cell FEW /hpf (<5); Urine Urobilinogen Normal (Negative); Urine WBC 2 /HPF (0-5)
[2024-07-30 07:25] VITALS: PULSE 65; RESP 12; O2SAT 97
[2024-07-30] MEDS: ASPirin 81 mg TAB PO SCH (10:19)
[2024-07-30] MEDS: SODIUM CHLORIDE 0.9% 1,000 ML IV SCH (10:30)
[2024-07-30 19:20] VITALS: PULSE 55; RESP 10; O2SAT 98
[2024-07-30 21:11] VITALS: BP 132/47; PULSE 49; RESP 18; TEMP 97.7; O2SAT 98
[2024-07-30 22:00] VITALS: BP 132/47; PULSE 49; RESP 18; TEMP 97.7; O2SAT 98
[2024-07-30] MEDS: ATORVASTATIN 20 MG TAB PO SCH (22:02)
[2024-07-31] VITALS (9 sets, daily range): BP systolic 128–164; BP diastolic 40–67; PULSE 50–61; RESP 16–19; TEMP 97.5–97.7; O2SAT 98–100
[2024-07-31 06:48] LABS: Anion Gap 10 (5-15); Calcium 9.8 mg/dL (8.7-10.4); Carbon Dioxide 24 mmol/L (20-31); Potassium 4.2 mmol/L (3.5-5.1); Sodium 144 mmol/L (136-145)
[2024-07-31 06:54] LABS: BUN/Creatinine Ratio 33.3 (10.0-20.0); Glucose 98 mg/dL (74-106)
[2024-07-31 06:55] LABS: Magnesium 1.9 mg/dL (1.6-2.6)
[2024-07-31 06:59] LABS: Blood Urea Nitrogen 25 mg/dL (9-23); Chloride 110 mmol/L (98-107)
--- NOTE | 2024-07-31 12:43 | DVHPN2 ---
Subjective She is still complaining of dizziness She is still bradycardic Blood pressure is low Changes from previous H/P or p: Changes Objective Vitals Vital Signs Date Time Temp Pulse Resp B/P (MAP) Pulse Ox O2 Delivery O2 Flow Rate FiO2 07/31/24 09:00 97.7 54 16 137/47 (77) 100 97.7 07/31/24 08:00 Room Air* 0 21 Intake/Output Intake and Output 07/31/24 07:00 Intake Total 1245 ml Balance 1245 ml Intake Oral 390 ml IV Total 855 ml # Voids 4 # Bowel Movements 1 General Appearance: Alert, Oriented X3, Cooperative Lungs: Clear to auscultation, Normal air movement Cardiovascular: Other (Sinus bradycardia) Abdomen: Normal bowel sounds, Soft, No tenderness Extremities: Other (2+ edema bilaterally in the lower extremities) Medications Current Medications Medications Dose Ordered Sig/Alfonso Route Start Time Stop Time Status Last Admin Dose Admin Atorvastatin Calcium 40 mg HS PO 07/30/24 22:00 07/30/24 22:02 40 MG Gabapentin 100 mg TID PO 07/30/24 06:00 07/31/24 06:13 100 MG Aspirin 81 mg DAILY PO 07/30/24 10:00 07/31/24 08:16 81 MG Ondansetron HCl 4 mg Q4HP PRN IV 07/29/24 22:30 Acetaminophen 650 mg Q6HP PRN PO 07/29/24 22:30 07/31/24 04:02 650 MG Nitroglycerin 0.4 mg Q5MINP PRN SL 07/29/24 22:30 Morphine Sulfate 2 mg Q30M PRN IV 07/29/24 22:30 Sodium Chloride 1,000 ml @ 60 mls/hr [id number] IV 07/30/24 18:00 07/31/24 10:40 60 MLS/HR Laboratory Results Laboratory Tests 07/30/24 04:54 07/31/24 05:58 Chemistry Test 07/31/24 05:58 Calcium Level 9.8 mg/dL (8.7-10.4) Magnesium Level 1.9 mg/dL (1.6-2.6) Urinalysis Test 07/30/24 05:58 Urine Color Light-yellow (Yellow) Urine Clarity Clear (Clear) Urine pH 5.0 (5.0-9.0) Urine Specific [place] 1.014 (1.001-1.035) Urine Protein Negative (Negative) Urine Ketones Negative (Negative) Urine Blood Negative /uL (Negative) Urine Nitrite Negative (Negative) Urine Bilirubin Negative (Negative) Urine Urobilinogen Normal mg/dL (Negative) Urine Leukocyte Esterase Negative /uL (Negative) Urine RBC <1 /hpf (0 - 4) Urine Microscopic WBC 2 /HPF (0-5) Urine Squamous Epithelial Cells Few /hpf (<5) Urine Calcium Oxalate Crystals Few (None Seen) Urine Bacteria None seen /hpf (None Seen) Urine Hyaline Casts Mod /lpf (0 - 2) Urine Glucose Normal mg/dL (Normal) Assessment/Plan Assessment/Plan Symptomatic bradycardia Hypotension Acute kidney injury, resolved Chronic bilateral lower extremity lymphedema History of hypertension Chronic diastolic heart failure History of Moderate tricuspid regurgitation Mixed hyperlipidemia Plan IV fluids normal saline Cardiology consult for the bradycardia Hold the antihypertensive medications for now Echocardiogram was done recently 1 month ago showed bilateral enlargement and concentric LVH with an ejection fraction 60% and moderate tricuspid regurgitation and mild aortic insufficiency Full code Plan discussed with: Patient My Orders Orders - RUSSELL CORONA MD Procedure Category Date Status Time Sodium Chloride 0.9% PHA 07/30/24 In Process 18:00 Cardiac DIET 07/31/24 Transmitted Diet-2gna,Lofat,Lochol Breakfast * Cardiology Consult CONS 07/31/24 Transmitted 05:55 Date of Service: Jul 31, 2024 Billing Provider: RUSSELL CORONA MD Common Visit Codes: NOT BILLABLE RUSSELL CORONA MD Jul 31, 2024 12:43
--- NOTE | 2024-07-31 12:56 | DVHINCON2 ---
Date Seen: Jul 31, 2024 Referring Physician MD Lindsay Reason for Consultation Bradycardia History of Present Illness This is a 68-year-old female who presented to the emergency room via EMS with a chief complaint of dear includes weakness for one day. The patient complains of generalized weakness associated with some dizziness and visual disturbance. Denies chest pain, shortness of breath, or syncopal events. She presented with a systolic blood pressure in the 90s mmHg and associated bradycardia with a rhythm strip showing a heart rate as low as 43 bpm and cardiac surgeon without evidence of sinus pauses or atrioventricular blocks. There was no 12 lead electrocardiogram on file. Per patient she has a chronic resting heart rate of 52 bpm which is normal for her. Also reports she is on multiple antihypertensive agents including amlodipine, hydrochlorothiazide, hydralazine, olmesartan, and clonidine 0.2 mg. Significant medical history includes congestive heart failure, hypertension, dyslipidemia, chronic lymphedema, peripheral neuropathy, and obesity. Of note, previous providers documented history of atrial fibrillation and CAD which the patient denies. Past Medical History Past medical history reviewed. No other significant than mentioned above. Past Surgical History Past surgical history reviewed. No other significant than mentioned above. Family History: Cardiovascular disease G8 MOTHER (GALLBLADDER STONES), , Age: 90, Onset:60 years & older (had cancer but mother from gallbladder per patient) family hx1, , Age: 95, Onset:60 years & older (heart attack) FHx: bladder cancer G8 MOTHER (GALLBLADDER STONES), , Age: 90, Onset:60 years & older Family History Family history reviewed. Social History Denies the use of illicit drugs, alcohol, or tobacco use. Allergies: Coded Allergies: Sulfa Antibiotics (Verified Allergy, Unknown, 11/25/23) Amlodipine (Unverified Adverse Reaction, Unknown, 07/10/24) Peripheral edema Home Meds Active Scripts Nifedipine (Nifedipine Er) 60 Mg Tab, 1 TAB PO DAILY, #30 TAB 5 Refills Prov:RUSSELL CORONA MD 07/12/24 Reported Medications Clonidine Hydrochloride (Clonidine Hcl) 0.2 Mg Tab, 1 TAB PO Q4HPRN PRN 07/10/24 Spironolactone (Spironolactone) 25 Mg Tab, 1 TAB PO DAILY for 90 Days, #90 06/28/24 Rosuvastatin Calcium (Rosuvastatin Calcium) 40 Mg Tab, 1 TAB PO DAILY for 90 Days, #90 06/10/24 Aspirin (Aspir-Low) 81 Mg Tab, 81 MG PO DAILY for 30 Days, MG 06/10/24 Hydrochlorothiazide (Hydrochlorothiazide) 12.5 Mg Tab, 1 TAB PO DAILY for 30 Days, #30 06/10/24 Gabapentin (Gabapentin) 100 Mg Cap, 1 CAP PO TID for 30 Days, #90 02/29/24 Home Meds Home medications reviewed. Current Medications Current Medications Medications (Trade) Dose Ordered Sig/Alfonso Route PRN Reason Start Time Stop Time Status Last Admin Atorvastatin Calcium (Lipitor) 40 mg HS PO 07/30/24 22:00 07/30/24 22:02 Sodium Chloride 1,000 ml @ 60 mls/hr [id number] IV 07/30/24 18:00 07/31/24 10:40 Review of Systems Constitutional: Generalized weakness Ears, Nose, & Throat: No symptom reported Eyes: No symptom reported Neurological: Dizziness, visual disturbance Pulmonary/Respiratory: No symptom reported Cardiovascular: No symptom reported Gastrointestinal: No symptom reported Genitourinary: No symptom reported Musculoskeletal: No symptom reported Skin: No symptom reported Psychiatric: No symptom reported Endocrine: No symptom reported Hemotologic/Lymphatic: No symptom reported Vital Signs Vital Signs Date Time Temp Pulse Resp B/P (MAP) Pulse Ox O2 Delivery O2 Flow Rate FiO2 07/31/24 09:00 97.7 54 16 137/47 (77) 100 97.7 07/31/24 08:00 Room Air* 0 21 Physical Exam General Appearance: Cooperative. Well developed. Obese. In no acute distress Head Exam: Normal inspection Neck Exam: Normal inspection. Non-tender. Normal alignment Pulmonary/Respiratory: Chest non-tender. Clear bilateral breath sounds Cardiovascular/Chest: Regular rate and rhythm. S1, S2. Sinus bradycardia. No murmurs. No JVD. Peripheral Pulses: 2+ Radial (R). 2+ Radial (L). 2+ Pedal (R). 2+ Pedal (L) Abdominal Exam: Normal bowel sounds. Soft. Nontender. No hepatospenomegaly. No masses Ankle Exam: Positive ankle edema Lower extremities: Positive lower extremity edema Neuro/Mental Status: A&O x4. Coherent Thoughts/Psych: Normal thought pattern. Appropriate mood and affect. Good judgement and insight Appearance: In no acute distress Skin Exam: Normal inspection. Normal color. Warm. Dry Labs/Diagnostic Data Labs Test 07/31/24 05:58 07/30/24 11:49 07/30/24 05:58 07/30/24 04:54 Range/Units Sodium Level 144 136-145 mmol/L Potassium Level 4.2 3.5-5.1 mmol/L Chloride Level 110 H 98-107 mmol/L Carbon Dioxide Level 24 20-31 mmol/L Anion Gap 10 5-15 Blood Urea Nitrogen 25 #H 9-23 mg/dL Creatinine 0.75 # 0.550-1.02 mg/dL Glomerular Filtration Rate Calc 86 >90 mL/min BUN/Creatinine Ratio 33.3 H 10.0-20.0 Serum Glucose 98 74-106 mg/dL Calcium Level 9.8 8.7-10.4 mg/dL Magnesium Level 1.9 1.6-2.6 mg/dL POC Glucose 114 H 70-106 mg/dl Urine Color Light-yellow Yellow Urine Clarity Clear Clear Urine pH 5.0 5.0-9.0 Urine Specific [place] 1.014 1.001-1.035 Urine Protein Negative Negative Urine Ketones Negative Negative Urine Blood Negative Negative /uL Urine Nitrite Negative Negative Urine Bilirubin Negative Negative Urine Urobilinogen Normal Negative mg/dL Urine Leukocyte Esterase Negative Negative /uL Urine RBC <1 0 - 4 /hpf Urine Microscopic WBC 2 0-5 /HPF Urine Squamous Epithelial Cells Few <5 /hpf Urine Calcium Oxalate Crystals Few None Seen Urine Bacteria None seen None Seen /hpf Urine Hyaline Casts Mod 0 - 2 /lpf Urine Glucose Normal Normal mg/dL White Blood Count 6.5 4.4-10.8 10^3/uL Red Blood Count 3.97 L 4.0-5.20 10^6/uL Hemoglobin 12.4 12.2-16.2 g/dL Hematocrit 37.4 36.0-46.0 % Mean Corpuscular Volume 94.3 80.0-100.0 fL Mean Corpuscular Hemoglobin 31.2 28.0-32.0 pg Mean Corpuscular Hemoglobin Concent 33.1 32.0-36.0 g/dL Red Cell Distribution Width 14.1 11.8-14.3 % Platelet Count 144 140-450 10^3/uL Mean Platelet Volume 11.6 H 6.9-10.8 fL Neutrophils (%) (Auto) 47.3 37.0-80.0 % Lymphocytes (%) (Auto) 39.6 10.0-50.0 % Monocytes (%) (Auto) 11.2 0.0-12.0 % Eosinophils (%) (Auto) 1.4 0.0-7.0 % Basophils (%) (Auto) 0.5 0.0-2.0 % Neutrophils # (Auto) 3.1 1.6-8.6 10 ^3/uL Lymphocytes # (Auto) 2.6 0.4-5.4 10 ^3/uL Monocytes # (Auto) 0.7 0-1.3 10 ^3/uL Eosinophils # (Auto) 0.1 0-0.8 10 ^3/uL Basophils # (Auto) 0 0-0.2 10 ^3/uL Nucleated Red Blood Cells 0.1 % Test 07/29/24 18:22 Range/Units Troponin I High Sensitivity 10 </=34 ng/L Assessment Symptomatic bradycardia in the setting of clonidine therapy Chronic compensated HFpEF with LVEF of 60% Tricuspid regurgitation, moderate degree Dyslipidemia Chronic lymphadenopathy Obesity Plan/Recommendation (Dr. Vidales) Patient with a multiple recent admissions to this facility underwent a transthoracic echocardiogram revealing an LVEF of 60% with normal RV function. She also underwent a recent Lexiscan on 06/27/2024 deemed to be negative for ischemia. The patient has been recommended in the past to avoid atrioventricular blocking agents given a low baseline heart rate. She is c urrently on Clonidine therapy which can be the culprit of bradycardia. Highly suspected polypharmacy as well as she is on multiple antihypertensive agents now with associated hypotension. Recommend an outpatient event monitor. Follow-up with primary flat folding machine operator as scheduled. There is no further cardiac workup indicated at this time. Kindly call if in need to re-consult. Thank you for allowing us to participate in this patient's care. This medical document was created using an electronic medical record system with voice recognition software and computerized dictation system. Although this document has been carefully reviewed, there might still be some phonetic and typographical errors. Occasional wrong-word or ``sound-alike substitutions may have occurred due to the inherent limitations of voice recognition software. These areas are purely typographical due to imperfections of the software programs and do not reflect any compromise in the patient's medical care. Please read the chart carefully and recognize, using context, where these substitutions have occurred. Plan discussed with: Patient, Other NYHA Physical activity limitations: NA Date of Service: Jul 31, 2024 Billing Provider: ANIYA DELEON Cardiology Common Codes: [id number] INP/OBS CARE (High) ANIYA DELEON Jul 31, 2024 12:56
[2024-07-31] MEDS: NITROGLYCERIN 0.4 MG SL TAB SL PRN (21:28)
[2024-08-01] VITALS (9 sets, daily range): BP systolic 126–161; BP diastolic 61–73; PULSE 47–145; RESP 18; TEMP 97.6–98.1; O2SAT 95–100
--- NOTE | 2024-08-01 14:55 | DVHPN2 ---
Subjective She is still complaining of dizziness Heart rate is running in the 50s Blood pressure is better She is complaining of sciatica pain Changes from previous H/P or p: Changes Objective Vitals Vital Signs Date Time Temp Pulse Resp B/P (MAP) Pulse Ox O2 Delivery O2 Flow Rate FiO2 08/01/24 13:00 98.0 50 18 138/65 (89) 99 98.0 08/01/24 08:00 Room Air* 0 21 Intake/Output Intake and Output 08/01/24 07:00 Intake Total 1840 ml Output Total 975 ml Balance 865 ml Intake Oral 1840 ml Output Urine Total 975 ml # Voids 1 # Bowel Movements 1 General Appearance: Alert, Oriented X3, Cooperative Lungs: Clear to auscultation, Normal air movement Cardiovascular: Other (Sinus bradycardia) Abdomen: Normal bowel sounds, Soft, No tenderness Extremities: Other (2+ edema bilaterally in the lower extremities) Medications Current Medications Medications Dose Ordered Sig/Alfonso Route Start Time Stop Time Status Last Admin Dose Admin Atorvastatin Calcium 40 mg HS PO 07/30/24 22:00 07/31/24 20:59 40 MG Gabapentin 100 mg TID PO 07/30/24 06:00 08/01/24 13:38 100 MG Aspirin 81 mg DAILY PO 07/30/24 10:00 08/01/24 10:13 81 MG Ondansetron HCl 4 mg Q4HP PRN IV 07/29/24 22:30 Acetaminophen 650 mg Q6HP PRN PO 07/29/24 22:30 08/01/24 10:14 650 MG Nitroglycerin 0.4 mg Q5MINP PRN SL 07/29/24 22:30 07/31/24 21:28 0.4 MG Morphine Sulfate 2 mg Q30M PRN IV 07/29/24 22:30 Sodium Chloride 1,000 ml @ 60 mls/hr [id number] IV 07/30/24 18:00 07/31/24 10:40 60 MLS/HR Laboratory Results Laboratory Tests 07/30/24 04:54 07/31/24 05:58 Urinalysis Test 07/30/24 05:58 Urine Color Light-yellow (Yellow) Urine Clarity Clear (Clear) Urine pH 5.0 (5.0-9.0) Urine Specific [place] 1.014 (1.001-1.035) Urine Protein Negative (Negative) Urine Ketones Negative (Negative) Urine Blood Negative /uL (Negative) Urine Nitrite Negative (Negative) Urine Bilirubin Negative (Negative) Urine Urobilinogen Normal mg/dL (Negative) Urine Leukocyte Esterase Negative /uL (Negative) Urine RBC <1 /hpf (0 - 4) Urine Microscopic WBC 2 /HPF (0-5) Urine Squamous Epithelial Cells Few /hpf (<5) Urine Calcium Oxalate Crystals Few (None Seen) Urine Bacteria None seen /hpf (None Seen) Urine Hyaline Casts Mod /lpf (0 - 2) Urine Glucose Normal mg/dL (Normal) Microbiology Microbiology Date/Time Source Procedure Growth Status 07/30/24 21:00 Nose MRSA Screen - Final Complete Assessment/Plan Assessment/Plan Symptomatic bradycardia Hypotension Acute kidney injury, resolved Chronic bilateral lower extremity lymphedema History of hypertension Chronic diastolic heart failure History of Moderate tricuspid regurgitation Mixed hyperlipidemia Plan IV fluids normal saline Cardiology consult for the bradycardia Hold the antihypertensive medications for now Echocardiogram was done recently 1 month ago showed bilateral enlargement and concentric LVH with an ejection fraction 60% and moderate tricuspid regurgitation and mild aortic insufficiency Full code 08/01/2024: Discontinue IV fluids Cardiology consult is evaluating the patient Continue to monitor on telemetry No beta blockers or alpha blockers Monitor closely Add [place] p.r.n. for sciatica pain Plan discussed with: Patient My Orders Orders - RUSSELL CORONA MD Procedure Category Date Status Time Electrocardigram EKG 07/31/24 Logged 17:33 Date of Service: Aug 01, 2024 Billing Provider: RUSSELL CORONA MD Common Visit Codes: NOT BILLABLE RUSSELL CORONA MD Aug 01, 2024 14:55
--- NOTE | 2024-08-01 15:14 | DVHPN2 ---
Consult Progress Note Date Seen: Aug 01, 2024 Subjective Review of Systems: CVS:Normal, RESPIRATORY:Normal, NEURO:Abnormal Other Systems: C/o some when standing Objective vital signs Vital Sign Date Time Temp Pulse Resp B/P (MAP) Pulse Ox O2 Delivery O2 Flow Rate FiO2 08/01/24 13:00 98.0 50 18 138/65 (89) 99 98.0 08/01/24 08:00 Room Air* 0 21 Total Intake and Output 07/31/24 07/31/24 08/01/24 15:00 23:00 07:00 Intake Total 1040 ml 800 ml Output Total 800 ml 175 ml Balance 240 ml 625 ml medications Current Medications Medications Dose Ordered Sig/Alfonso Route Start Time Stop Time Status Last Admin Dose Admin Atorvastatin Calcium 40 mg HS PO 07/30/24 22:00 07/31/24 20:59 40 MG Gabapentin 100 mg TID PO 07/30/24 06:00 08/01/24 13:38 100 MG Aspirin 81 mg DAILY PO 07/30/24 10:00 08/01/24 10:13 81 MG Ondansetron HCl 4 mg Q4HP PRN IV 07/29/24 22:30 Acetaminophen 650 mg Q6HP PRN PO 07/29/24 22:30 08/01/24 10:14 650 MG Nitroglycerin 0.4 mg Q5MINP PRN SL 07/29/24 22:30 07/31/24 21:28 0.4 MG Morphine Sulfate 2 mg Q30M PRN IV 07/29/24 22:30 Acetaminophen/ Hydrocodone Bitart 1 tab Q6HPRN PRN PO 08/01/24 15:00 UNV Examination: LUNGS:Normal, CVS:Normal (Sinus bradycardia w/o evidence of sinus pauses or AV blocks), NEURO:Normal laboratory and microbiology Laboratory Tests 07/31/24 05:58 07/30/24 04:54 Test 07/31/24 05:58 Range/Units Serum Glucose 98 74-106 mg/dL Problem List/Assessment/Plan Problem List/Assessment/Plan Symptomatic bradycardia in the setting of clonidine therapy Chronic compensated HFpEF with LVEF of 60% Tricuspid regurgitation, moderate degree Orthostatic hypotension ruled out Dyslipidemia Chronic lymphadenopathy Obesity Plan/Recommendation (Dr. Vidales) Case discussed in full detail with Dr. Vidales. The patient with a multiple recent admissions to this facility underwent a transthoracic echocardiogram revealing an LVEF of 60% with normal RV function. She also underwent a recent Lexiscan on 06/27/2024 deemed to be negative for ischemia. The patient has been recommended in the past to avoid atrioventricular blocking agents given a low baseline heart rate. She was recently Rx Clonidine 0.2 mg on 07/17/2024 quantity 100 for a 17 day supply which can be the culprit of worsening bradycardia. Highly suspected polypharmacy as well as she is on multiple antihypertensive agents and pain medications now with associated hypotension. A social service consultation was placed for possible outpatient event monitor if patient qualifies prior to discharge. Consider dihydropyridine, nitrate, and vasodilator agents for the treatment of hypertension as these agents could increase the HR. Not a candidate for a pacemaker. Follow-up with primary clothing patternmaker as scheduled. Kindly call if in need to re-consult. Thank you for allowing us to participate in this patient's care. This medical document was created using an electronic medical record system with voice recognition software and computerized dictation system. Although this document has been carefully reviewed, there might still be some phonetic and typographical errors. Occasional wrong-word or ``sound-alike substitutions may have occurred due to the inherent limitations of voice recognition software. These areas are purely typographical due to imperfections of the software programs and do not reflect any compromise in the patient's medical care. Please read the chart carefully and recognize, using context, where these substitutions have occurred. Plan discussed with: Patient, Other Dietary Evaluation Review Comments: 1. Remove Renal diet modififer, GENEVIEVE resolved; maintain Cardiac diet 2. Encourage continued good PO intakes >75% of meals 3. Appreciate daily weights to trend Expected Outcomes/Goals: Maintain adequate nutrition, provide least-restrictive diet possible. Date of Service: Aug 01, 2024 Billing Provider: ANIYA DELEON Cardiology Common Codes: [id number] INP/OBS CARE (High) ANIYA DELEON Aug 01, 2024 15:14
[2024-08-01] MEDS: HYDROcodone-ACET 5/325MG TAB PO PRN (17:57)
[2024-08-02] VITALS (8 sets, daily range): BP systolic 122–147; BP diastolic 50–84; PULSE 51–61; RESP 18; TEMP 97.6–98.7; O2SAT 97–100
--- NOTE | 2024-08-02 11:22 | ECG ---
[facility] Test Date: 2024-07-31 Test Time: 17:16:19 Pat Name: NASIR ROSARIO Department: Respiratoy Room: 0246T B Gender: F Supply Chain Analyst: matheus barry rn : 1955 Requested By: RUSSELL CORONA Order Number: [id number] Reading MD: Mayank Vidales Measurements Intervals [place] Rate: 53 P: -9 NE: 135 QRS: 10 QRSD: 93 T: 39 QT: 453 QTc: 426 Interpretive Statements Sinus rhythm LVH by voltage Minimal ST elevation, inferior leads Electronically Signed On 08-02-2024 11:54:43 PDT by Mayank Vidales Please click the below link to view image of tracing.
--- NOTE | 2024-08-02 15:53 | DVHPN2 ---
Subjective No new complaints Heart rate is in the 50s Blood pressure is better Changes from previous H/P or p: Changes Objective Vitals Vital Signs Date Time Temp Pulse Resp B/P (MAP) Pulse Ox O2 Delivery O2 Flow Rate FiO2 08/02/24 12:20 98.7 56 122/67 (85) 100 98.7 56 122/67 (85) 56 122/67 (85) 08/02/24 08:00 Room Air* 0 21 08/02/24 07:42 18 Intake/Output Intake and Output 08/02/24 07:00 Intake Total 1140 ml Output Total 400 ml Balance 740 ml Intake Oral 1140 ml Output Urine Total 400 ml # Voids 4 General Appearance: Alert, Oriented X3, Cooperative Lungs: Clear to auscultation, Normal air movement Cardiovascular: Other (Sinus bradycardia) Abdomen: Normal bowel sounds, Soft, No tenderness Extremities: Other (2+ edema bilaterally in the lower extremities) Medications Current Medications Medications Dose Ordered Sig/Alfonso Route Start Time Stop Time Status Last Admin Dose Admin Atorvastatin Calcium 40 mg HS PO 07/30/24 22:00 08/01/24 21:17 40 MG Gabapentin 100 mg TID PO 07/30/24 06:00 08/02/24 14:09 100 MG Aspirin 81 mg DAILY PO 07/30/24 10:00 08/02/24 10:34 81 MG Ondansetron HCl 4 mg Q4HP PRN IV 07/29/24 22:30 Acetaminophen 650 mg Q6HP PRN PO 07/29/24 22:30 08/02/24 10:34 650 MG Nitroglycerin 0.4 mg Q5MINP PRN SL 07/29/24 22:30 07/31/24 21:28 0.4 MG Morphine Sulfate 2 mg Q30M PRN IV 07/29/24 22:30 Acetaminophen/ Hydrocodone Bitart 1 tab Q6HPRN PRN PO 08/01/24 15:00 08/02/24 04:54 1 TAB Laboratory Results Laboratory Tests 07/30/24 04:54 07/31/24 05:58 HgA1c, TSH Test 08/01/24 17:30 Thyroid Stimulating Hormone (TSH) 0.53 uIU/mL (0.55-4.78) L Urinalysis Test 07/30/24 05:58 Urine Color Light-yellow (Yellow) Urine Clarity Clear (Clear) Urine pH 5.0 (5.0-9.0) Urine Specific [place] 1.014 (1.001-1.035) Urine Protein Negative (Negative) Urine Ketones Negative (Negative) Urine Blood Negative /uL (Negative) Urine Nitrite Negative (Negative) Urine Bilirubin Negative (Negative) Urine Urobilinogen Normal mg/dL (Negative) Urine Leukocyte Esterase Negative /uL (Negative) Urine RBC <1 /hpf (0 - 4) Urine Microscopic WBC 2 /HPF (0-5) Urine Squamous Epithelial Cells Few /hpf (<5) Urine Calcium Oxalate Crystals Few (None Seen) Urine Bacteria None seen /hpf (None Seen) Urine Hyaline Casts Mod /lpf (0 - 2) Urine Glucose Normal mg/dL (Normal) Microbiology Microbiology Date/Time Source Procedure Growth Status 07/30/24 21:00 Nose MRSA Screen - Final Complete Assessment/Plan Assessment/Plan Symptomatic bradycardia Hypotension Acute kidney injury, resolved Chronic bilateral lower extremity lymphedema History of hypertension Chronic diastolic heart failure History of Moderate tricuspid regurgitation Mixed hyperlipidemia Plan IV fluids normal saline Cardiology consult for the bradycardia Hold the antihypertensive medications for now Echocardiogram was done recently 1 month ago showed bilateral enlargement and concentric LVH with an ejection fraction 60% and moderate tricuspid regurgitation and mild aortic insufficiency Full code 08/01/2024: Discontinue IV fluids Cardiology consult is evaluating the patient Continue to monitor on telemetry No beta blockers or alpha blockers Monitor closely Add [place] p.r.n. for sciatica pain 08/02/2024: Cardiology recommended to get an event monitor for her for outpatient, social workers are working on it In the meantime her blood pressure is slightly elevated and therefore we will start nifedipine 30 mg daily Monitor closely The rest of the management will depend on the hospital course Plan discussed with: Patient My Orders Orders - RUSSELL CORONA MD Procedure Category Date Status Time Nifedipine Er PHA 08/03/24 Logged (Procardia Xl 10:00 Date of Service: Aug 02, 2024 Billing Provider: RUSSELL CORONA MD Common Visit Codes: NOT BILLABLE RUSSELL CORONA MD Aug 02, 2024 15:53
[2024-08-03 05:00] VITALS: BP_SYST 10; BP_SYST 121; BP_DIAS 54; PULSE 50; RESP 18; TEMP 97; O2SAT 97
[2024-08-03 08:00] VITALS: PULSE 47
[2024-08-03 09:00] VITALS: BP 134/57; PULSE 48; RESP 16; TEMP 97.4; O2SAT 97
[2024-08-03] MEDS: NIFEdipine ER 30 MG TAB PO SCH (09:24)
[2024-08-03] MEDS ORDERED: NIFE1TAB31 PO (12:34)
[2024-08-03 13:00] VITALS: BP 127/53; PULSE 52; RESP 16; TEMP 97.8; O2SAT 98
--- NOTE | 2024-08-03 13:13 | DVHDS2 ---
Discharge Summary Date of Admission Jul 29, 2024 at 22:20 Date of Discharge: Aug 03, 2024 Labs/Diagnostic Data: Laboratory Results Test 08/02/24 08:28 08/01/24 17:30 07/31/24 21:50 07/31/24 05:58 Cortisol AM Sample 9.76 ug/dL (5.27-22.45) Thyroid Stimulating Hormone (TSH) 0.53 uIU/mL (0.55-4.78) Cortisol PM Sample 5.49 ug/dL (3.44-16.76) Troponin I High Sensitivity 11 ng/L (</=34) Sodium Level 144 mmol/L (136-145) Potassium Level 4.2 mmol/L (3.5-5.1) Chloride Level 110 mmol/L (98-107) Carbon Dioxide Level 24 mmol/L (20-31) Anion Gap 10 (5-15) Blood Urea Nitrogen 25 mg/dL (9-23) Creatinine 0.75 mg/dL (0.550-1.02) Glomerular Filtration Rate Calc 86 mL/min (>90) BUN/Creatinine Ratio 33.3 (10.0-20.0) Serum Glucose 98 mg/dL (74-106) Calcium Level 9.8 mg/dL (8.7-10.4) Magnesium Level 1.9 mg/dL (1.6-2.6) Test 07/30/24 11:49 07/30/24 05:58 07/30/24 04:54 POC Glucose 114 mg/dl (70-106) Urine Color Light-yellow (Yellow) Urine Clarity Clear (Clear) Urine pH 5.0 (5.0-9.0) Urine Specific Arab 1.014 (1.001-1.035) Urine Protein Negative (Negative) Urine Ketones Negative (Negative) Urine Blood Negative /uL (Negative) Urine Nitrite Negative (Negative) Urine Bilirubin Negative (Negative) Urine Urobilinogen Normal mg/dL (Negative) Urine Leukocyte Esterase Negative /uL (Negative) Urine RBC <1 /hpf (0 - 4) Urine Microscopic WBC 2 /HPF (0-5) Urine Squamous Epithelial Cells Few /hpf (<5) Urine Calcium Oxalate Crystals Few (None Seen) Urine Bacteria None seen /hpf (None Seen) Urine Hyaline Casts Mod /lpf (0 - 2) Urine Glucose Normal mg/dL (Normal) White Blood Count 6.5 10^3/uL (4.4-10.8) Red Blood Count 3.97 10^6/uL (4.0-5.20) Hemoglobin 12.4 g/dL (12.2-16.2) Hematocrit 37.4 % (36.0-46.0) Mean Corpuscular Volume 94.3 fL (80.0-100.0) Mean Corpuscular Hemoglobin 31.2 pg (28.0-32.0) Mean Corpuscular Hemoglobin Concent 33.1 g/dL (32.0-36.0) Red Cell Distribution Width 14.1 % (11.8-14.3) Platelet Count 144 10^3/uL (140-450) Mean Platelet Volume 11.6 fL (6.9-10.8) Neutrophils (%) (Auto) 47.3 % (37.0-80.0) Lymphocytes (%) (Auto) 39.6 % (10.0-50.0) Monocytes (%) (Auto) 11.2 % (0.0-12.0) Eosinophils (%) (Auto) 1.4 % (0.0-7.0) Basophils (%) (Auto) 0.5 % (0.0-2.0) Neutrophils # (Auto) 3.1 10 ^3/uL (1.6-8.6) Lymphocytes # (Auto) 2.6 10 ^3/uL (0.4-5.4) Monocytes # (Auto) 0.7 10 ^3/uL (0-1.3) Eosinophils # (Auto) 0.1 10 ^3/uL (0-0.8) Basophils # (Auto) 0 10 ^3/uL (0-0.2) Nucleated Red Blood Cells 0.1 % Other Laboratory Tests 07/31/24 05:58 07/30/24 04:54 Brief Hx & Hospital Course: Final diagnoses: Bradycardia Hypotension Acute kidney injury, resolved Chronic bilateral lower extremity lymphedema History of hypertension Chronic diastolic heart failure History of Moderate tricuspid regurgitation Mixed hyperlipidemia 68-year-old female who was admitted for dizziness and hypotension and bradycardia She had this problem before Now she was found to have acute kidney injury and was given IV fluids which resolved it and improved her blood pressure. At home she takes nifedipine but she also has a prescription for clonidine, she is not sure what she takes We will observe her here for few days and her heart rate usually is about 50-60 when she is awake what say sometimes drops to the 40s when she is sleeping She was evaluated by Cardiology again and was deemed not suitable for a pacemaker Overall she is doing well Cardiology recommended an event monitor to be done at home however it can not be done here. The patient can go home and get it done as an outpatient The patient sees Dr. Jang outside and she will follow up with him to get the event monitor done She needs to be taking nifedipine ER 30 mg daily Discontinue clonidine Discontinue the other blood pressure medications Follow up with the primary care physician as soon as possible Condition at Discharge: Stable Final Diagnosis/Problems List Bradycardia Hypotension Acute kidney injury, resolved Chronic bilateral lower extremity lymphedema History of hypertension Chronic diastolic heart failure History of Moderate tricuspid regurgitation Mixed hyperlipidemia Discharge Disposition: Home SNF Discharge Will this Physician continue t: No Discharge Instruct/Medications Diet: Cardiac 2g Na,low cholest Activity: No Restrictions, As Tolerated Follow Up/Referral: Dr. Jang KAYLA Medications: DC Clonidine DC HCTZ DC Hydralazine Take Nifedipine ER 30 mg qd Discharge Statement: "Patient was advised to return to the ER or call 911 if any headaches, dizziness, shortness of breath, chest pain, abdominal pain, bleeding, fevers, or worsening of medical condition. Patient was counseled about treatment plan, medications, possible side effects, patientverbalized understanding. All questions were answered to the best of my ability. This discharge took greater then 30 minutes in planning, reviewing documentation, counseling the patient, and discussing with other team members." ASSESSMENT ASSESSMENT Assessment Date of Service: Aug 03, 2024 Billing Provider: RUSSELL CORONA MD Common Visit Codes: NOT BILLABLE RUSSELL CORONA MD Aug 03, 2024 13:13
[2024-08-03 15:02] VITALS: BP 134/57; PULSE 48; RESP 16; TEMP 36.3; O2SAT 97
== END 2024-08-03 16:37 | disposition home or self-care (01) | DRG 683 ==
LOC: ER 17:59 → EDBD 17:59 → OVERFLOW 22:20 → TELE-EAST 07-30 21:11
PROVIDERS: ADMIT Internal Medicine Geriatric Medicine; ATTEND Internal Medicine Geriatric Medicine
DX: N17.0 Acute kidney failure with tubular necrosis (principal); I50.32 Chronic diastolic (congestive) heart failure; I95.2 Hypotension due to drugs; R00.1 Bradycardia, unspecified; Z95.2 Presence of prosthetic heart valve; I11.0 Hypertensive heart disease with heart failure; I07.1 Rheumatic tricuspid insufficiency; E66.9 Obesity, unspecified; J45.909 Unspecified asthma, uncomplicated; Z68.32 Body mass index [BMI] 32.0-32.9, adult; I35.1 Nonrheumatic aortic (valve) insufficiency; I95.9 Hypotension, unspecified; E78.2 Mixed hyperlipidemia; M54.30 Sciatica, unspecified side; G62.9 Polyneuropathy, unspecified; I48.91 Unspecified atrial fibrillation; I25.10 Atherosclerotic heart disease of native coronary artery without angina pectoris; R59.1 Generalized enlarged lymph nodes; Z82.49 Family history of ischemic heart disease and other diseases of the circulatory system; Z80.52 Family history of malignant neoplasm of bladder; Z88.2 Allergy status to sulfonamides; T50.905A Adverse effect of unspecified drugs, medicaments and biological substances, initial encounter; Y92.89 Other specified places as the place of occurrence of the external cause
CPT/HCPCS: 36415; 71045; 80048; 81001; 82533; 82962; 83735; 84443; 84484; 85025; 87081; 93005; 96360; 97110; 97116; 97163; 97530; G0378

== ENCOUNTER 2024-08-21 15:01 | Inpatient (IN) | payer OTHER ==
[~2024-08-21] VITALS: Ht 177.8 cm; Wt 89.3 kg
[~2024-08-21 15:01] MED LIST changes: -AMLO1TAB22 PO; -CLON0.2T PO; +DOXY1CAP57 PO; -HYDR12.55 PO; -HYDR25TA87 PO; +METH4TAB44 PO; -NIFE1TAB30 PO; +NIFE1TAB31 PO; -OLME40TA76 PO; -SPIR25TA8 PO
[2024-08-21 15:55] LABS: Basophils # (auto) 0 10 ^3/uL (0-0.2); Basophils % (auto) 0.4 % (0.0-2.0); Eosinophils # (auto) 0.1 10 ^3/uL (0-0.8); Eosinophils % (auto) 0.6 % (0.0-7.0); Hemoglobin 13.7 g/dL (12.2-16.2); Lymphocytes # (auto) 1.1 10 ^3/uL (0.4-5.4); Lymphocytes % (auto) 12.6 % (10.0-50.0); Mean Corpuscular Hgb Conc. 32.5 g/dL (32.0-36.0); Mean Corpuscular Volume 95.5 fL (80.0-100.0); Monocytes # (auto) 0.4 10 ^3/uL (0-1.3); Monocytes % (auto) 5.1 % (0.0-12.0); Neutrophils % (auto) 81.3 % (37.0-80.0); Platelet Count (auto) 175 10^3/uL (140-450); Red Cell Distribution Width 15.3 % (11.8-14.3); White Blood Cell 8.5 10^3/uL (4.4-10.8)
[2024-08-21 15:57] LABS: Anion Gap 9 (5-15); Carbon Dioxide 24 mmol/L (20-31); Potassium 3.9 mmol/L (3.5-5.1); Sodium 144 mmol/L (136-145)
[2024-08-21 15:58] LABS: Calcium 9.5 mg/dL (8.7-10.4)
[2024-08-21 15:59] LABS: Chloride 111 mmol/L (98-107)
[2024-08-21 16:03] LABS: BUN/Creatinine Ratio 36.9 (10.0-20.0); Blood Urea Nitrogen 24 mg/dL (9-23); Glucose 166 mg/dL (74-106)
[2024-08-21 16:21] LABS: Erythrocyte Sedimentation Rate 15 mm/hr (0-20)
--- NOTE | 2024-08-21 16:26 | ED.PDOC ---
Musculoskeletal HPI Comments 68 y/o F, BIBA, with PMHX of leg edema, HLD, PVD, CHF, and HTN presents to the ED for CC of right leg infection. Patient states, that she has a right lower leg wound that has become swollen and red that is now weeping starting today (08/21/24). Patient c/o of current 5/10 pain. Patient denies injury, fever, chills, nausea, weakness, or fatigue. No other symptoms or modifying factors present at this time. 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, Medications, Allergies Allergies: Coded Allergies: Sulfa Antibiotics (Verified Allergy, Unknown, 11/25/23) Amlodipine (Unverified Adverse Reaction, Unknown, 07/10/24) Peripheral edema Home Meds Active Scripts Doxycycline Monohydrate (Doxycycline Monohydrate) 100 Mg Cap, 1 CAP PO BID, #14 CAP Prov:RUSSELL CORONA MD 08/20/24 Nifedipine (Nifedipine Er) 30 Mg Tab, 30 MG PO DAILY for 30 Days, #30 TAB 5 Refills Prov:RUSSELL CORONA MD 08/03/24 Reported Medications Methylprednisolone (Methylprednisolone) 4 Mg Tab, TAB PO 08/15/24 Tramadol Hcl (Tramadol Hcl) 50 Mg Tab, 1-2 TAB PO BID PRN for 30 Days, #120 08/01/24 Rosuvastatin Calcium (Rosuvastatin Calcium) 40 Mg Tab, 1 TAB PO DAILY for 90 Days, #90 06/10/24 Aspirin (Aspir-Low) 81 Mg Tab, 81 MG PO DAILY for 30 Days, MG 06/10/24 Gabapentin (Gabapentin) 100 Mg Cap, 1 CAP PO TID for 30 Days, #90 02/29/24 Information Source: Patient, Emergency Med Personnel Mode of Arrival: EMS Location: Right Extremity Location: Leg Timing: Days Prehospital treatment: None Severity: Moderate Able to Move Extremity: Yes Bear Weight: Limited Pain: Moderate Mechanism: Spontaneous Circumstances: Unknown Onset of Symptoms: Spontaneous Symptoms: Swelling, Pain, Erythema DVT Risk Factors: NONE Last Tetanus: Unknown Associated signs and symptoms: Swelling Past Medical History PAST MEDICAL HISTORY: AFIB, Asthma, CAD, CHF, High Lipids, HTN Surgical History: Denies all surgeries 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 DISABILITIES TEACHER 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 Family History Family History: Reviewed,noncontributory to illness, Unknown Social History Smoker: Non-Smoker Alcohol: Denies ETOH Use Drugs: Denies Drug Use Lives In: Home Constitutional: denies: chills, diaphoresis, fatigue, fever, malaise, sweats, weakness, others EENTM: denies: blurred vision, double vision, ear bleeding, ear discharge, ear drainage, ear pain, ear ringing, eye pain, eye redness, hearing loss, mouth pain, mouth swelling, nasal discharge, nose bleeding, nose congestion, nose pain, photophobia, tearing, throat pain, throat swelling, voice changes, others Respiratory: denies: cough, hemoptysis, orthopnea, SOB at rest, shortness of breath, SOB with excertion, stridor, wheezing, others Cardiovascular: denies: chest pain, dizzy spells, diaphoresis, Dyspnea on exertion, edema, irregular heart beat, left arm pain, lightheadedness, palpi tations, PND, syncope, others Gastrointestinal: denies: abdomen distended, abdominal pain, blood streaked bowels, constipated, diarrhea, dysphagia, difficulty swallowing, hematemesis, melena, nausea, poor appetite, poor fluid intake, rectal bleeding, rectal pain, vomiting, others Genitourinary: denies: abnormal vagina bleeding, burning, dyspareunia, dysuria, flank pain, frequency, hematuria, incontinence, pain, , vagina discharge, urgency, others Neurological: denies: dizziness, fainting, headache, left sided numbness, left sided weakness, numbness, paresthesia, pre-existing deficit, right sided numbness, right sided weakness, seizure, speech problems, tingling, tremors, weakness, others Musculoskeletal: reports: others (RIGHT LEG PAIN); denies: back pain, gout, joint pain, joint swelling, muscle pain, muscle stiffness, neck pain Integumetry: reports: wounds; denies: bruises, change in color, change in hair/nails, dryness, laceration, lesions, lumps, rash, others Allergic/Immunocompromised: denies: Difficulty Healing, Frequent Infections, Hives, Itching, others Hematologic/Lymphatic: denies: anemia, blood clots, easy bleeding, easy bruising, swollen glands, others Endocrine: denies: excessive hunger, excessive sweating, excessive thirst, excessive urination, flushing, intolerance to cold, intolerance to heat, unexplained weight gain, unexplained weight loss, others Psychiatric: denies: anxiety, bipolar disorder, depression, hopeless, panic disorder, schizophrenia, sleepless, suicidal, others Physical Exam General Appearance: Moderate Distress HEENT: Normal ENT Inspection, Pharynx Normal, TMs Normal Neck: Full Range of Motion, Non-Tender, Normal, Normal Inspection Respiratory: Chest Non-Tender, Lungs Clear, No Accessory Muscle Use, No Respiratory Distress, Normal Breath Sounds Cardiovascular: No Edema, No JVD, No Murmur, No Gallop, Normal Peripheral Pulses, Regular Rate/Rhythm Breast Exam: Deferred Gastrointestinal: No Organomegaly, Non Tender, No Pulsatile Mass, Normal Bowel Sounds, Soft Genitalia: Deferred Pelvic: Deferred Rectal: Deferred Extremities: No calf tenderness, Normal capillary refill, No pedal edema Musculoskeletal : Apperance: Normal Neurologic: Alert, milk pickup driver II-XII nml as Tested, No Motor Deficits, Normal Affect, Normal Mood, No Sensory Deficits Cerebellar Function: Normal Reflexes: Normal Skin: Dry, Normal Color, Warm, Other (Redness and drainage to the right leg) Lymphatic: No Adenopathy Was a procedure done? Was a procedure done?: No Differential Diagnosis EXT Differential Diagnosis: Cellulitis, Fracture, Sprain X-Ray, Labs, Meds, VS Vital Signs Date Time Temp Pulse Resp B/P (MAP) Pulse Ox O2 Delivery O2 Flow Rate FiO2 08/21/24 15:08 98.0 70 22 160/95 (116) 95 98.0 Lab Test 08/21/24 15:34 Range/Units White Blood Count 8.5 4.4-10.8 10^3/uL Red Blood Count 4.40 4.0-5.20 10^6/uL Hemoglobin 13.7 12.2-16.2 g/dL Hematocrit 42.0 36.0-46.0 % Mean Corpuscular Volume 95.5 80.0-100.0 fL Mean Corpuscular Hemoglobin 31.0 28.0-32.0 pg Mean Corpuscular Hemoglobin Concent 32.5 32.0-36.0 g/dL Red Cell Distribution Width 15.3 H 11.8-14.3 % Platelet Count 175 140-450 10^3/uL Mean Platelet Volume 11.6 H 6.9-10.8 fL Neutrophils (%) (Auto) 81.3 H 37.0-80.0 % Lymphocytes (%) (Auto) 12.6 10.0-50.0 % Monocytes (%) (Auto) 5.1 0.0-12.0 % Eosinophils (%) (Auto) 0.6 0.0-7.0 % Basophils (%) (Auto) 0.4 0.0-2.0 % Neutrophils # (Auto) 7.0 1.6-8.6 10 ^3/uL Lymphocytes # (Auto) 1.1 0.4-5.4 10 ^3/uL Monocytes # (Auto) 0.4 0-1.3 10 ^3/uL Eosinophils # (Auto) 0.1 0-0.8 10 ^3/uL Basophils # (Auto) 0 0-0.2 10 ^3/uL Nucleated Red Blood Cells 0.0 % Erythrocyte Sedimentation Rate 15 0-20 mm/hr Sodium Level 144 136-145 mmol/L Potassium Level 3.9 3.5-5.1 mmol/L Chloride Level 111 H 98-107 mmol/L Carbon Dioxide Level 24 20-31 mmol/L Anion Gap 9 5-15 Blood Urea Nitrogen 24 H 9-23 mg/dL Creatinine 0.65 0.550-1.02 mg/dL Glomerular Filtration Rate Calc 95 >90 mL/min BUN/Creatinine Ratio 36.9 H 10.0-20.0 Serum Glucose 166 H 74-106 mg/dL Calcium Level 9.5 8.7-10.4 mg/dL The CBC is within normal limits. The chemistry panel is within normal limits The patient's blood sugar is 166 At this time, the patient was being admitted with a diagnosis of right leg cellulitis The patient was admitted at this time Time of 1ST Reevaluation: 16:30 Reevaluation 1ST: Unchanged Patient Education/Counseling: Diagnosis, Treatment, Prognosis Family Education/Counseling: No Family Present Departure 1 Departure Time of Disposition: 16:45 Impression: Primary Impression: Cellulitis of right leg Additional Impression: Pedal edema Disposition: 09 ADMITTED INPATIENT Admit to: Med Surg Condition: Fair Critical Care Note Critical Care Time?: No Stability Stability form required: Yes Unstable for transfer: ED Physician Assesment (Clinical assesment) Heart Score Heart Score: Heart Score Response (Comments) Value History N/A 0 EKG N/A 0 Age N/A 0 Risk Factors N/A 0 Troponin N/A 0 Total 0 I personally scribed for TREVON MAURER MD ([email or web address]) on 08/21/24 at 16:26. Electronically submitted by Shanae Villa ([email or web address]). TREVON MAURER MD Aug 21, 2024 16:26
[2024-08-21] MEDS ORDERED: ONDANSETRON HCL 4 MG/2 ML VIAL IV PRN (19:45)
[2024-08-21 21:09] VITALS: PULSE 60; RESP 19; O2SAT 94
--- NOTE | 2024-08-21 22:08 | DVHHP2 ---
History of Present Illness Reason for Visit: Lower extremity swelling History of Present Illness 68-year-old female presents for evaluation of lower extremity swelling. Patient reports having a history of chronic bilateral lower extremity lymphedema. She states that over the past two days she has noticed her right lower extremity become more swollen and red. She has also noticed a blister. Denies fever or chills. No other acute complaints. Past Medical History CAD, CHF, dyslipidemia, hypertension, asthma, AFib, lymphedema Past Surgical History Denies Family History Noncontributory Smoke: No ALCOHOL: none Drugs: None Lives: with Family Review of Systems Review of Systems Review of systems are currently negative otherwise addressed in HPI. Allergies: Coded Allergies: Sulfa Antibiotics (Verified Allergy, Unknown, 11/25/23) Amlodipine (Unverified Adverse Reaction, Unknown, 07/10/24) Peripheral edema Medications Current Medications Medications Dose Ordered Sig/Alfonso Route Start Time Stop Time Status Last Admin Dose Admin Atorvastatin Calcium 40 mg HS PO 08/21/24 22:00 Gabapentin 100 mg TID PO 08/21/24 22:00 Nifedipine 30 mg DAILY PO 08/22/24 10:00 UNV Hydralazine HCl 25 mg Q8HR PO 08/21/24 22:00 Clindamycin Phosphate 50 ml @ 50 mls/hr Q8HR IV 08/21/24 22:00 Acetaminophen/ Hydrocodone Bitart 1 tab Q4HP PRN PO 08/21/24 19:45 Ondansetron HCl 4 mg Q4HP PRN IV 08/21/24 19:45 Enoxaparin Sodium 40 mg DAILY SC 08/22/24 10:00 Acetaminophen 650 mg Q6HP PRN PO 08/21/24 19:45 Exam Vital Signs Vital Signs Date Time Temp Pulse Resp B/P (MAP) Pulse Ox O2 Delivery O2 Flow Rate FiO2 08/21/24 21:09 98.0 60 19 144/55 (84) 94 98.0 08/21/24 21:09 Room Air* 0 21 Exam Gen: 68-year-old female in mild distress. Skin: Warm, dry, normal color and texture, no rash. HEENT: Normocephalic atraumatic, mucous membranes moist and pink. Neck: Cervical and supraclavicular nodes normal without enlargement, trachea is midline, thyroid gland is normal without masses. Pulmonary: Clear to auscultation and percussion bilaterally. Cardiac: Regular rate and rhythm. No murmur Abdomen: Soft, nontender, nondistended, bowel sounds present all 4 quadrants, no guarding, no rigidity, no organomegaly. Extremities: No cyanosis, clubbing, bilateral lower extremity erythema with plus two edema. Neuro: Cranial nerves II through XII grossly intact, normal affect and speech, no focal motor deficits. Labs/Xrays ORDERING PHYSICIAN: RADHA HARRELL PROCEDURE(s): [facility]ID[facility] - ECHO 2D MODE CARDIAC DOP REASON: hypertension ORDER NUMBER(s): [id number], ACCESSION NUMBER(s): [id number] APPROVED REPORT EXAM: Two-dimensional and M-mode echocardiogram with Doppler and color Doppler. Blood Pressure: 175/63 mmHg INDICATION Hypertension RISK FACTORS Height: 66, Weight: 186 DIMENSIONS LVDd 4.0 (3.8-5.7cm) LA (2D) 4.0 (1.9-4.0cm) Aortic Root 2.6 (2.0- 3.7cm) LVDs 2.9 (2.5-4.0cm) LA (MM) (1.9-4.0cm) Aortic Cusp Exc 1.2 (1.5- 2.0cm) EF (%) 55.0 (55-70%) Rt. Atrium 4.9 (1.9-4.0cm) Asc. Aorta cm IVSd 1.2 (0.7-1.1cm) RV (D) (1.8-2.4cm) PWd 1.3 (0.7-1.1cm) Mitral Valve Mitral Mitral Stenosis E wave 0.66m/s MV Mean GR. mmHg A wave 1.17m/s MV Peak GR. mmHg E/A ratio 0.6 2D MVA cm2 DECEL Time 241ms PRESS 1/2 Time 87ms IVRT ms Dop MVA 2.54cm2 Aortic Valve Aortic Valve Aortic Stenosis V1 1.80m/s AO Mean GR. 16mmHg V2 2.74m/s AO Peak GR. 30mmHg LVOT Diameter 1.4 (1.8-2.4cm) Doppler ERMA 1.01cm2 AI P 1/ Time 514.78ms Pulmonic Valve V2 1.41m/s Tricuspid Valve TR Velocity 2.92m/s RVSP 42mmHg Conclusion Sinus rhythm. Biatrial enlargement with concentric LVH. Mild aortic sclerosis. Left ventricular function is preserved at 60% with normal RV function. Mild aortic insufficiency. Moderate tricuspid regurgitation. No pericardial effusion masses or vegetations SIGNED BY: ANNE MARIE GARNETT Sr., MD SIGNED DATE/TIME: 06/10/24 1323 Labs Test 08/21/24 15:34 Range/Units White Blood Count 8.5 4.4-10.8 10^3/uL Red Blood Count 4.40 4.0-5.20 10^6/uL Hemoglobin 13.7 12.2-16.2 g/dL Hematocrit 42.0 36.0-46.0 % Mean Corpuscular Volume 95.5 80.0-100.0 fL Mean Corpuscular Hemoglobin 31.0 28.0-32.0 pg Mean Corpuscular Hemoglobin Concent 32.5 32.0-36.0 g/dL Red Cell Distribution Width 15.3 H 11.8-14.3 % Platelet Count 175 140-450 10^3/uL Mean Platelet Volume 11.6 H 6.9-10.8 fL Neutrophils (%) (Auto) 81.3 H 37.0-80.0 % Lymphocytes (%) (Auto) 12.6 10.0-50.0 % Monocytes (%) (Auto) 5.1 0.0-12.0 % Eosinophils (%) (Auto) 0.6 0.0-7.0 % Basophils (%) (Auto) 0.4 0.0-2.0 % Neutrophils # (Auto) 7.0 1.6-8.6 10 ^3/uL Lymphocytes # (Auto) 1.1 0.4-5.4 10 ^3/uL Monocytes # (Auto) 0.4 0-1.3 10 ^3/uL Eosinophils # (Auto) 0.1 0-0.8 10 ^3/uL Basophils # (Auto) 0 0-0.2 10 ^3/uL Nucleated Red Blood Cells 0.0 % Erythrocyte Sedimentation Rate 15 0-20 mm/hr Sodium Level 144 136-145 mmol/L Potassium Level 3.9 3.5-5.1 mmol/L Chloride Level 111 H 98-107 mmol/L Carbon Dioxide Level 24 20-31 mmol/L Anion Gap 9 5-15 Blood Urea Nitrogen 24 H 9-23 mg/dL Creatinine 0.65 0.550-1.02 mg/dL Glomerular Filtration Rate Calc 95 >90 mL/min BUN/Creatinine Ratio 36.9 H 10.0-20.0 Serum Glucose 166 H 74-106 mg/dL Calcium Level 9.5 8.7-10.4 mg/dL Assessment/Plan Assessment/Plan Assessment Bilateral lower extremity cellulitis Chronic lymphedema Hypertension Plan Admit the patient to [facility] to the hospitalist Clindamycin Wound consult pending Bilateral lower extremity DVT study pending Resume home medications Continue treatment per orders. Plan discussed with: Patient My Orders Orders - RADHA HARRELL Procedure Category Date Status Time Atorvastatin (Lipitor) PHA 08/21/24 In Process 22:00 Gabapentin Capsule PHA 08/21/24 In Process (Neurontin Capsule) 22:00 Nifedipine Er PHA 08/22/24 Logged (Procardia Xl 10:00 Hydralazine Hcl PHA 08/21/24 In Process Tablet (Apresoline 22:00 Clindamycin 600mg Iv PHA 08/21/24 In Process (Cleocin Iv) 22:00 Basic Metabolic Panel LAB 08/22/24 Verified 04:00 Admit ADMIT 08/21/24 Transmitted 19:33 Hydrocodone-Acet PHA 08/21/24 In Process 5/325mg Tab ([place] 19:45 Ondansetron Hcl PHA 08/21/24 In Process (Zofran) 19:45 Enoxaparin Sodium PHA 08/22/24 In Process (Lovenox) 10:00 Complete Blood Count LAB 08/22/24 Verified 04:00 Cardiac DIET 08/22/24 Transmitted Diet-2gna,Lofat,Lochol Breakfast Condition: Stable REX 08/21/24 In Process 19:33 Acetaminophen Tablet PHA 08/21/24 In Process (Tylenol Tablet) 19:45 Bedrest With Bathroom REX 08/21/24 In Process Privileg 19:33 * Wound Consult CONS 08/21/24 Transmitted Date of Service: Aug 21, 2024 Billing Provider: RADHA HARRELL Common Visit Codes: [id number] INP/OBS CARE (HIGH) RADHA HARRELL Aug 21, 2024 22:08
[2024-08-22] MEDS: ATORVASTATIN 20 MG TAB PO SCH (00:28)
[2024-08-22] MEDS: hydrALAZINE HCL 25 MG TAB PO SCH (00:28)
[2024-08-22] MEDS: GABAPENTIN 100 MG CAP PO SCH (00:29)
[2024-08-22] MEDS: FUROSEMIDE 20 MG/2 ML VIAL IV ONE ×2 (00:29→10:34)
[2024-08-22] MEDS: CLINDAMYCIN 600MG IV 50 ML IV SCH (00:29)
[2024-08-22 00:30] VITALS: PULSE 70; RESP 19; O2SAT 96
--- NOTE | 2024-08-22 00:45 | DVH ---
Bilateral lower extremity venous duplex Clinical History: r/o dvt Comparison: US BILAT LOWER DVT on DOS: 01/19/24 Technique: Duplex Doppler evaluation of the deep venous systems of both lower extremities from the common femora l veins to the popliteal veins including color Doppler and spectral/pulsed waveform analysis was perf ormed. Findings: RIGHT SIDE: The common femoral vein demonstrates appropriate compressibility and waveform variability. There is compressibility/patency of the great saphenous vein at the proximal thigh. The femoral vein demonstrates appropriate compressibility and waveform variability. The deep femoral vein demonstrates appropriate compressibility and waveform variability. The popliteal vein demonstrates appropriate compressibility and waveform variability. Posterior tibial vein not adequately visualized. LEFT SIDE: The common femoral vein demonstrates appropriate compressibility and waveform variability. There is compressibility/patency of the great saphenous vein at the proximal thigh. The femoral vein demonstrates appropriate compressibility and waveform variability. The deep femoral vein demonstrates appropriate compressibility and waveform variability. The popliteal vein demonstrates appropriate compressibility and waveform variability. Posterior tibial vein not adequately visualized. Impression: No evidence of right or left femoropopliteal venous thrombosis.
[2024-08-22] MEDS: HYDROcodone-ACET 5/325MG TAB PO PRN (06:17)
[2024-08-22 07:46] LABS: Anion Gap 11 (5-15); Carbon Dioxide 26 mmol/L (20-31); Chloride 105 mmol/L (98-107); Potassium 3.8 mmol/L (3.5-5.1); Sodium 142 mmol/L (136-145)
[2024-08-22 07:47] LABS: Calcium 10.1 mg/dL (8.7-10.4)
[2024-08-22 07:52] LABS: BUN/Creatinine Ratio 42.2 (10.0-20.0); Glucose 101 mg/dL (74-106)
[2024-08-22 07:57] LABS: Blood Urea Nitrogen 27 mg/dL (9-23)
[2024-08-22 08:05] LABS: Basophils # (auto) 0 10 ^3/uL (0-0.2); Basophils % (auto) 0.3 % (0.0-2.0); Eosinophils # (auto) 0.1 10 ^3/uL (0-0.8); Hematocrit 43.9 % (36.0-46.0); Hemoglobin 14.2 g/dL (12.2-16.2); Lymphocytes # (auto) 1.8 10 ^3/uL (0.4-5.4); Mean Corpuscular Hgb Conc. 32.4 g/dL (32.0-36.0); Mean Corpuscular Volume 95.6 fL (80.0-100.0); Monocytes # (auto) 0.8 10 ^3/uL (0-1.3); Monocytes % (auto) 8.7 % (0.0-12.0); Neutrophils # (auto) 6.6 10 ^3/uL (1.6-8.6); Platelet Count (auto) 198 10^3/uL (140-450); Red Blood Cells 4.59 10^6/uL (4.0-5.20); Red Cell Distribution Width 15.3 % (11.8-14.3); White Blood Cell 9.3 10^3/uL (4.4-10.8)
--- NOTE | 2024-08-22 08:46 | DVHPN2 ---
Subjective 68-year-old female with a history of chronic lymphedema was here last week and was discharged from here 2 days ago with the diagnoses of cellulitis in her legs and was sent on p.o. antibiotics, she says after she went home the next day she started having some liquid discharge from her right leg She was admitted here last night with worsening cellulitis Changes from previous H/P or p: Changes Objective Vitals Vital Signs Date Time Temp Pulse Resp B/P (MAP) Pulse Ox O2 Delivery O2 Flow Rate FiO2 08/22/24 07:24 97.1 56 16 136/78 (97) 96 97.1 08/22/24 00:30 Room Air* 0 21 Intake/Output Intake and Output 08/22/24 07:00 Intake Total 50 ml Balance 50 ml Intake IV Total 50 ml General Appearance: Alert, Oriented X3, Cooperative, No acute distress Lungs: Clear to auscultation Cardiovascular: Regular rate, Normal S1, Normal S2 Abdomen: Normal bowel sounds, Soft, No tenderness Extremities: Other (1+ edema bilaterally in the lower extremities) Medications Current Medications Medications Dose Ordered Sig/Alfonso Route Start Time Stop Time Status Last Admin Dose Admin Atorvastatin Calcium 40 mg HS PO 08/21/24 22:00 08/22/24 00:28 40 MG Gabapentin 100 mg TID PO 08/21/24 22:00 08/22/24 06:17 100 MG Nifedipine 30 mg DAILY PO 08/22/24 10:00 Hydralazine HCl 25 mg Q8HR PO 08/21/24 22:00 08/22/24 06:17 25 MG Clindamycin Phosphate 50 ml @ 50 mls/hr Q8HR IV 08/21/24 22:00 08/22/24 06:17 50 MLS/HR Acetaminophen/ Hydrocodone Bitart 1 tab Q4HP PRN PO 08/21/24 19:45 08/22/24 06:17 1 TAB Ondansetron HCl 4 mg Q4HP PRN IV 08/21/24 19:45 Enoxaparin Sodium 40 mg DAILY SC 08/22/24 10:00 Acetaminophen 650 mg Q6HP PRN PO 08/21/24 19:45 Laboratory Results Laboratory Tests 08/22/24 07:00 Chemistry Test 08/21/24 15:34 08/22/24 07:00 Calcium Level 9.5 mg/dL (8.7-10.4) 10.1 mg/dL (8.7-10.4) Cardiac Markers Test 08/21/24 22:15 B-Type Natriuretic Peptide 51.27 pg/mL (0-100) Assessment/Plan Assessment/Plan Bilateral lower extremity cellulitis Bilateral lower extremity chronic lymphedema Chronic diastolic heart failure Hypertension Obesity History of cerebral palsy Plan Continue IV clindamycin Wound care Give Lasix 20 mg IV once Continue nifedipine ER 30 mg daily Lipitor 40 mg daily Tylenol p.r.n. Monitor closely The rest of the management will depend on the hospital course Plan discussed with: Patient Date of Service: Aug 22, 2024 Billing Provider: URSSELL CORONA MD Common Visit Codes: NOT BILLABLE RUSSELL CORONA MD Aug 22, 2024 08:46
[2024-08-22 10:00] VITALS: PULSE 70; RESP 12; O2SAT 99
[2024-08-22] MEDS: NIFEdipine ER 30 MG TAB PO SCH (10:00)
[2024-08-22] MEDS: ENOXAPARIN SOD 40 MG/0.4 ML SYRINGE SC SCH (10:35)
[2024-08-22 15:37] VITALS: BP 126/76; PULSE 55; RESP 16; TEMP 97.6; O2SAT 100
[2024-08-22] MEDS ORDERED: AMLO1TAB22 PO (16:04)
[2024-08-22 16:30] VITALS: BP 117/55; PULSE 56; RESP 16; TEMP 97.6; O2SAT 96
[2024-08-22 21:00] VITALS: BP 137/63; PULSE 58; RESP 16; TEMP 98; O2SAT 97
[2024-08-23 01:00] VITALS: BP 135/62; PULSE 60; RESP 16; TEMP 97.9; O2SAT 96
[2024-08-23 05:00] VITALS: BP 141/82; PULSE 62; RESP 16; TEMP 98; O2SAT 97
[2024-08-23] MEDS: ACETAMINOPHEN 325 MG TAB PO PRN (06:13)
[2024-08-23 08:00] VITALS: BP 125/47; PULSE 55; RESP 18; TEMP 97.8; O2SAT 96
--- NOTE | 2024-08-23 10:53 | DVHPN2 ---
Subjective Still with edema and erythema in both legs more on the right side Vital signs are stable Changes from previous H/P or p: Changes Objective Vitals Vital Signs Date Time Temp Pulse Resp B/P (MAP) Pulse Ox O2 Delivery O2 Flow Rate FiO2 08/23/24 09:49 125/47 08/23/24 08:00 97.8 55 18 96 97.8 08/22/24 20:00 Room Air* 0 21 Intake/Output Intake and Output 08/23/24 07:00 Intake Total 1400 ml Balance 1400 ml Intake Oral 1200 ml IV Total 200 ml # Voids 6 General Appearance: Alert, Oriented X3, Cooperative, No acute distress Lungs: Clear to auscultation Cardiovascular: Regular rate, Normal S1, Normal S2 Abdomen: Normal bowel sounds, Soft, No tenderness Extremities: Other (1+ edema bilaterally in the lower extremities) Medications Current Medications Medications Dose Ordered Sig/Alfonso Route Start Time Stop Time Status Last Admin Dose Admin Atorvastatin Calcium 40 mg HS PO 08/21/24 22:00 08/22/24 22:24 40 MG Gabapentin 100 mg TID PO 08/21/24 22:00 08/23/24 06:13 100 MG Nifedipine 30 mg DAILY PO 08/22/24 10:00 08/23/24 09:49 30 MG Hydralazine HCl 25 mg Q8HR PO 08/21/24 22:00 08/23/24 06:13 25 MG Clindamycin Phosphate 50 ml @ 50 mls/hr Q8HR IV 08/21/24 22:00 08/23/24 06:13 50 MLS/HR Acetaminophen/ Hydrocodone Bitart 1 tab Q4HP PRN PO 08/21/24 19:45 08/23/24 03:58 1 TAB Ondansetron HCl 4 mg Q4HP PRN IV 08/21/24 19:45 Enoxaparin Sodium 40 mg DAILY SC 08/22/24 10:00 08/23/24 09:49 40 MG Acetaminophen 650 mg Q6HP PRN PO 08/21/24 19:45 08/23/24 06:13 650 MG Laboratory Results Laboratory Tests 08/22/24 07:00 Microbiology Microbiology Date/Time Source Procedure Growth Status 08/22/24 07:32 Leg Right Gram Stain Pending Resulted 08/22/24 07:32 Leg Right Wound Culture - Preliminary Resulted 4/16/25 22:15 Blood Blood Culture - Preliminary NO GROWTH AFTER 24 HOURS OF INCUBATION. Resulted Assessment/Plan Assessment/Plan Bilateral lower extremity cellulitis Bilateral lower extremity chronic lymphedema Chronic diastolic heart failure Hypertension Obesity History of cerebral palsy Plan Continue IV clindamycin Wound care Give Lasix 20 mg IV once Continue nifedipine ER 30 mg daily Lipitor 40 mg daily Tylenol p.r.n. Monitor closely The rest of the management will depend on the hospital course 08/23/2024: Continue IV clindamycin Continue Lovenox for DVT prophylaxis Add Protonix 40 mg p.o. daily for GI prophylaxis Continue nifedipine for hypertension Continue gabapentin for neuropathy Hydralazine p.r.n. for blood pressure control Lipitor Continue wound care Monitor closely The rest of the management will depend on hospital course Plan discussed with: Patient My Orders Orders - RUSSELL CORONA MD Procedure Category Date Status Time Cleanse Wound With REX 08/22/24 In Process Wound Clean 15:02 Date of Service: Aug 23, 2024 Billing Provider: RUSSELL CORONA MD Common Visit Codes: NOT BILLABLE RUSSELL CORONA MD Aug 23, 2024 10:53
[2024-08-23 13:56] VITALS: BP 131/50; PULSE 50; RESP 18; TEMP 97.4; O2SAT 98
[2024-08-23] MEDS: PANTOPRAZOLE 40 MG TAB PO ONE (15:02)
[2024-08-23 16:46] VITALS: BP 108/46; PULSE 53; RESP 18; TEMP 98.4; O2SAT 98
[2024-08-23 21:00] VITALS: BP 118/56; PULSE 73; RESP 18; TEMP 98.1; O2SAT 97
[2024-08-24] VITALS (7 sets, daily range): BP systolic 104–166; BP diastolic 43–55; PULSE 57–99; RESP 14–18; TEMP 96.7–98.3; O2SAT 96–98
[2024-08-24] MEDS: PANTOPRAZOLE 40 MG TAB PO SCH (06:19)
--- NOTE | 2024-08-24 09:11 | DVHPN2 ---
Subjective No change Changes from previous H/P or p: Changes Objective Vitals Vital Signs Date Time Temp Pulse Resp B/P (MAP) Pulse Ox O2 Delivery O2 Flow Rate FiO2 08/24/24 07:30 18 Room Air* 0 21 08/24/24 06:19 135/53 08/24/24 05:00 97.7 58 97 97.7 Intake/Output Intake and Output 08/24/24 07:00 Intake Total 2075 ml Output Total 8000 ml Balance -5925 ml Intake Oral 1925 ml IV Total 150 ml Output Urine Total 8000 ml # Voids 4 # Bowel Movements 1 General Appearance: Alert, Oriented X3, Cooperative, No acute distress Lungs: Clear to auscultation Cardiovascular: Regular rate, Normal S1, Normal S2 Abdomen: Normal bowel sounds, Soft, No tenderness Extremities: Other (1+ edema bilaterally in the lower extremities) Medications Current Medications Medications Dose Ordered Sig/Alfonso Route Start Time Stop Time Status Last Admin Dose Admin Atorvastatin Calcium 40 mg HS PO 08/21/24 22:00 08/23/24 22:16 40 MG Gabapentin 100 mg TID PO 08/21/24 22:00 08/24/24 06:18 100 MG Nifedipine 30 mg DAILY PO 08/22/24 10:00 08/23/24 09:49 30 MG Hydralazine HCl 25 mg Q8HR PO 08/21/24 22:00 08/24/24 06:19 25 MG Clindamycin Phosphate 50 ml @ 50 mls/hr Q8HR IV 08/21/24 22:00 08/24/24 06:18 50 MLS/HR Acetaminophen/ Hydrocodone Bitart 1 tab Q4HP PRN PO 08/21/24 19:45 08/23/24 03:58 1 TAB Ondansetron HCl 4 mg Q4HP PRN IV 08/21/24 19:45 Enoxaparin Sodium 40 mg DAILY SC 08/22/24 10:00 08/23/24 09:49 40 MG Acetaminophen 650 mg Q6HP PRN PO 08/21/24 19:45 08/23/24 22:19 650 MG Pantoprazole Sodium 40 mg DAILY@0600 PO 08/24/24 06:00 08/24/24 06:19 40 MG Laboratory Results Laboratory Tests 08/22/24 07:00 Microbiology Microbiology Date/Time Source Procedure Growth Status 08/22/24 07:32 Leg Right Gram Stain - Final Resulted 08/22/24 07:32 Leg Right Wound Culture - Preliminary Resulted 08/21/24 22:15 Blood Blood Culture - Preliminary NO GROWTH AFTER 48 HOURS OF INCUBATION. Resulted Assessment/Plan Assessment/Plan Bilateral lower extremity cellulitis Bilateral lower extremity chronic lymphedema Chronic diastolic heart failure Hypertension Obesity History of cerebral palsy Plan Continue IV clindamycin Wound care Give Lasix 20 mg IV once Continue nifedipine ER 30 mg daily Lipitor 40 mg daily Tylenol p.r.n. Monitor closely The rest of the management will depend on the hospital course 08/23/2024: Continue IV clindamycin Continue Lovenox for DVT prophylaxis Add Protonix 40 mg p.o. daily for GI prophylaxis Continue nifedipine for hypertension Continue gabapentin for neuropathy Hydralazine p.r.n. for blood pressure control Lipitor Continue wound care Monitor closely The rest of the management will depend on hospital course 08/24/24: Continue IV Anbx Elevate legs Wound care Plan discussed with: Patient My Orders Orders - RUSSELL CORONA MD Procedure Category Date Status Time Pantoprazole Tablet PHA 08/24/24 In Process (Protonix Tablet) 06:00 Date of Service: Aug 24, 2024 Billing Provider: RUSSELL CORONA MD Common Visit Codes: NOT BILLABLE RUSSELL CORONA MD Aug 24, 2024 09:11
[2024-08-25 01:00] VITALS: BP 165/54; PULSE 65; RESP 18; TEMP 98.1; O2SAT 95
[2024-08-25 05:00] VITALS: BP 139/54; PULSE 53; RESP 18; TEMP 98.1; O2SAT 96
--- NOTE | 2024-08-25 10:18 | DVHPN2 ---
Subjective Doing well No new complaints Changes from previous H/P or p: Changes Objective Vitals Vital Signs Date Time Temp Pulse Resp B/P (MAP) Pulse Ox O2 Delivery O2 Flow Rate FiO2 08/25/24 09:13 150/63 08/25/24 08:05 Room Air* 0 21 08/25/24 05:00 98.1 53 18 96 98.1 Intake/Output Intake and Output 08/25/24 07:00 Intake Total 600 ml Balance 600 ml Intake Oral 500 ml IV Total 100 ml # Voids 12 # Bowel Movements 5 General Appearance: Alert, Oriented X3, Cooperative, No acute distress Lungs: Clear to auscultation Cardiovascular: Regular rate, Normal S1, Normal S2 Abdomen: Normal bowel sounds, Soft, No tenderness Extremities: Other (1+ edema bilaterally in the lower extremities) Medications Current Medications Medications Dose Ordered Sig/Alfonso Route Start Time Stop Time Status Last Admin Dose Admin Atorvastatin Calcium 40 mg HS PO 08/21/24 22:00 08/24/24 22:31 40 MG Gabapentin 100 mg TID PO 08/21/24 22:00 08/25/24 06:23 100 MG Nifedipine 30 mg DAILY PO 08/22/24 10:00 08/25/24 09:13 30 MG Hydralazine HCl 25 mg Q8HR PO 08/21/24 22:00 08/25/24 06:23 25 MG Clindamycin Phosphate 50 ml @ 50 mls/hr Q8HR IV 08/21/24 22:00 08/25/24 06:23 50 MLS/HR Acetaminophen/ Hydrocodone Bitart 1 tab Q4HP PRN PO 08/21/24 19:45 08/24/24 22:31 1 TAB Ondansetron HCl 4 mg Q4HP PRN IV 08/21/24 19:45 Enoxaparin Sodium 40 mg DAILY SC 08/22/24 10:00 08/25/24 09:14 40 MG Acetaminophen 650 mg Q6HP PRN PO 08/21/24 19:45 08/23/24 22:19 650 MG Pantoprazole Sodium 40 mg DAILY@0600 PO 08/24/24 06:00 08/25/24 06:23 40 MG Laboratory Results Laboratory Tests 08/22/24 07:00 Microbiology Microbiology Date/Time Source Procedure Growth Status 08/22/24 07:32 Leg Right Gram Stain - Final Resulted 08/22/24 07:32 Leg Right Wound Culture - Preliminary Resulted 08/21/24 22:15 Blood Blood Culture - Preliminary NO GROWTH AFTER 72 HOURS OF INCUBATION. Resulted Assessment/Plan Assessment/Plan Bilateral lower extremity cellulitis Bilateral lower extremity chronic lymphedema Chronic diastolic heart failure Hypertension Obesity History of cerebral palsy Plan Continue IV clindamycin Wound care Give Lasix 20 mg IV once Continue nifedipine ER 30 mg daily Lipitor 40 mg daily Tylenol p.r.n. Monitor closely The rest of the management will depend on the hospital course 08/23/2024: Continue IV clindamycin Continue Lovenox for DVT prophylaxis Add Protonix 40 mg p.o. daily for GI prophylaxis Continue nifedipine for hypertension Continue gabapentin for neuropathy Hydralazine p.r.n. for blood pressure control Lipitor Continue wound care Monitor closely The rest of the management will depend on hospital course 08/24/24: Continue IV Anbx Elevate legs Wound care 08/25/2024: Continue current management of wound care and IV antibiotics Discharge planning tomorrow to go home with home health for wound care Plan discussed with: Patient Date of Service: Aug 25, 2024 Billing Provider: RUSSELL CORONA MD Common Visit Codes: NOT BILLABLE RUSSELL CORONA MD Aug 25, 2024 10:18
[2024-08-25 13:00] VITALS: BP 128/54; PULSE 57; RESP 16; TEMP 97.4; O2SAT 97
[2024-08-25 20:00] VITALS: PULSE 58; RESP 17; O2SAT 97
[2024-08-25 21:00] VITALS: BP 143/48; PULSE 58; RESP 17; TEMP 97.7; O2SAT 97
[2024-08-26 05:00] VITALS: BP 131/53; PULSE 54; RESP 18; TEMP 98.1; O2SAT 97
[2024-08-26 08:30] VITALS: BP 149/54; PULSE 54; RESP 16; TEMP 97.8; O2SAT 95
--- NOTE | 2024-08-26 11:03 | DVHDS2 ---
Discharge Summary Date of Admission Aug 21, 2024 at 19:33 Date of Discharge: Aug 26, 2024 Labs/Diagnostic Data: Laboratory Results Test 08/22/24 07:00 08/21/24 22:15 08/21/24 15:34 White Blood Count 9.3 10^3/uL (4.4-10.8) Red Blood Count 4.59 10^6/uL (4.0-5.20) Hemoglobin 14.2 g/dL (12.2-16.2) Hematocrit 43.9 % (36.0-46.0) Mean Corpuscular Volume 95.6 fL (80.0-100.0) Mean Corpuscular Hemoglobin 31.0 pg (28.0-32.0) Mean Corpuscular Hemoglobin Concent 32.4 g/dL (32.0-36.0) Red Cell Distribution Width 15.3 % (11.8-14.3) Platelet Count 198 10^3/uL (140-450) Mean Platelet Volume 11.7 fL (6.9-10.8) Neutrophils (%) (Auto) 71.0 % (37.0-80.0) Lymphocytes (%) (Auto) 19.0 % (10.0-50.0) Monocytes (%) (Auto) 8.7 % (0.0-12.0) Eosinophils (%) (Auto) 1.0 % (0.0-7.0) Basophils (%) (Auto) 0.3 % (0.0-2.0) Neutrophils # (Auto) 6.6 10 ^3/uL (1.6-8.6) Lymphocytes # (Auto) 1.8 10 ^3/uL (0.4-5.4) Monocytes # (Auto) 0.8 10 ^3/uL (0-1.3) Eosinophils # (Auto) 0.1 10 ^3/uL (0-0.8) Basophils # (Auto) 0 10 ^3/uL (0-0.2) Nucleated Red Blood Cells 0.0 % Sodium Level 142 mmol/L (136-145) Potassium Level 3.8 mmol/L (3.5-5.1) Chloride Level 105 mmol/L (98-107) Carbon Dioxide Level 26 mmol/L (20-31) Anion Gap 11 (5-15) Blood Urea Nitrogen 27 mg/dL (9-23) Creatinine 0.64 mg/dL (0.550-1.02) Glomerular Filtration Rate Calc 95 mL/min (>90) BUN/Creatinine Ratio 42.2 (10.0-20.0) Serum Glucose 101 mg/dL (74-106) Calcium Level 10.1 mg/dL (8.7-10.4) B-Type Natriuretic Peptide 51.27 pg/mL (0-100) Erythrocyte Sedimentation Rate 15 mm/hr (0-20) Other Laboratory Tests 08/22/24 07:00 Brief Hx & Hospital Course: Final diagnoses: Bilateral lower extremity cellulitis Bilateral lower extremity chronic lymphedema Chronic diastolic heart failure Hypertension Obesity History of cerebral palsy 68 year old female was admitted for recurrent BLE erythema and discharge She was give IV antibiotics and wound care She is stable She can go home on po antibiotics and wound care by home health Resume the home meds F/U PCP KAYLA Condition at Discharge: Stable Final Diagnosis/Problems List Bilateral Lower ext. cellulitis Discharge Disposition: Home with Health Services SNF Discharge Will this Physician continue t: No Discharge Instruct/Medications Diet: Cardiac 2g Na,low cholest Activity: No Restrictions, As Tolerated Follow Up/Referral: PCP KAYLA Medications: Same home meds Resume doxycycline Rx from last admision Discharge Statement: "Patient was advised to return to the ER or call 911 if any headaches, dizziness, shortness of breath, chest pain, abdominal pain, bleeding, fevers, or worsening of medical condition. Patient was counseled about treatment plan, medications, possible side effects, patientverbalized understanding. All questions were answered to the best of my ability. This discharge took greater then 30 minutes in planning, reviewing documentation, counseling the patient, and discussing with other team members." ASSESSMENT ASSESSMENT Assessment Bilateral Lower ext. cellulitis Date of Service: Aug 26, 2024 Billing Provider: RUSSELL CORONA MD Common Visit Codes: NOT BILLABLE RUSSELL CORONA MD Aug 26, 2024 11:02
[2024-08-26 12:30] VITALS: BP 153/80; PULSE 52; RESP 16; TEMP 97.6; O2SAT 97
[2024-08-26 16:30] VITALS: BP 154/58; PULSE 59; RESP 16; TEMP 97.2; O2SAT 97
[2024-08-26 17:30] VITALS: BP 148/60; PULSE 58
== END 2024-08-26 19:42 | disposition home health service (06) | DRG 603 ==
LOC: EDBD 15:01 → ER 15:01 → OVERFLOW 19:33 → WEST WING 08-22 14:57
PROVIDERS: ADMIT Internal Medicine Geriatric Medicine; ATTEND Internal Medicine Geriatric Medicine
DX: L03.115 Cellulitis of right lower limb (principal); I50.32 Chronic diastolic (congestive) heart failure; I89.0 Lymphedema, not elsewhere classified; L03.116 Cellulitis of left lower limb; E66.9 Obesity, unspecified; I11.0 Hypertensive heart disease with heart failure; E78.5 Hyperlipidemia, unspecified; G80.9 Cerebral palsy, unspecified; I25.10 Atherosclerotic heart disease of native coronary artery without angina pectoris; I48.91 Unspecified atrial fibrillation; J45.909 Unspecified asthma, uncomplicated; Z88.2 Allergy status to sulfonamides; Z88.8 Allergy status to other drugs, medicaments and biological substances; Z79.82 Long term (current) use of aspirin; Z79.899 Other long term (current) drug therapy; Z68.28 Body mass index [BMI] 28.0-28.9, adult
CPT/HCPCS: 36415; 80048; 83880; 85025; 85652; 87040; 87077; 87186; 87205; 93970; G0378; J3490

== ENCOUNTER 2024-09-05 20:10 | Inpatient (IN) | payer OTHER ==
[~2024-09-05] VITALS: Ht 167.6 cm; Wt 98.3 kg
[~2024-09-05 20:10] MED LIST changes: +AMLO1TAB22 PO; +HYDR12.55 PO; +HYDR25TA87 PO; -METH4TAB44 PO; +OLME40TA76 PO; +SPIR25TA8 PO
--- NOTE | 2024-09-05 20:45 | ED.PDOC ---
HPI Comments 68-year-old female came to ER EMS for chest pains. Patient is seen here multiple times. Was discharged your last August 26, 2024 and was diagnosed with 1. Bilateral lower extremity cellulitis , 2. Bilateral lower extremity chronic lymphedema, 3. Chronic diastolic heart failure , 4. Hypertension, 5. Obesity, 6. History of cerebral palsy. Patient states she has been having intermittent episodes of left-sided chest pains with the past 4 days, chest pains described to be in unprovoked. Denies any nausea or vomiting. Chief Complaint: Chest Pain Time Seen by MD: 20:43 Primary Care Provider: JENELLE Reviewed Notes: Light Bulb Tester Notes Allergies: Coded Allergies: Sulfa Antibiotics (Verified Allergy, Unknown, 11/25/23) Amlodipine (Unverified Adverse Reaction, Unknown, 07/10/24) Peripheral edema Home Meds Active Scripts Doxycycline Monohydrate (Doxycycline Monohydrate) 100 Mg Cap, 1 CAP PO BID, #14 CAP Prov:RUSSELL CORONA MD 08/20/24 Nifedipine (Nifedipine Er) 30 Mg Tab, 30 MG PO DAILY for 30 Days, #30 TAB 5 Refills Prov:RUSSELL CORONA MD 08/03/24 Reported Medications Amlodipine Besylate (Amlodipine Besylate) 5 Mg Tab, 1 TAB PO DAILY 08/22/24 Tramadol Hcl (Tramadol Hcl) 50 Mg Tab, 1-2 TAB PO BID PRN for 30 Days, #120 08/01/24 Rosuvastatin Calcium (Rosuvastatin Calcium) 40 Mg Tab, 1 TAB PO DAILY for 90 Days, #90 06/10/24 Aspirin (Aspir-Low) 81 Mg Tab, 81 MG PO DAILY for 30 Days, MG 06/10/24 Gabapentin (Gabapentin) 100 Mg Cap, 1 CAP PO TID for 30 Days, #90 02/29/24 Information Source: Patient, Emergency Med Personnel Mode of Arrival: EMS Severity: Moderate Timing: Days Duration: Intermittent Prehospital treatment: None Location: Chest (L) Radiation: No Radiation Quality: Aching Onset: With Light Exertion Cardiac Risk Factors: HTN, Other (CHF, AFib) PE Risk Factors: None History of: Similar pain in past Modifying Factors: Nothing Associated Signs and Symptoms: None Past Medical History PAST MEDICAL HISTORY: AFIB, Asthma, CAD, CHF, High Lipids, HTN Surgical History: Denies all surgeries 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 CONSTRUCTION TEACHER 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 Family History Family History: Reviewed,noncontributory to illness, Unknown Social History Smoker: Non-Smoker Alcohol: Denies ETOH Use Drugs: Denies Drug Use Lives In: Home Constitutional: denies: chills, diaphoresis, fatigue, fever, malaise, sweats, weakness, others EENTM: denies: blurred vision, double vision, ear bleeding, ear discharge, ear drainage, ear pain, ear ringing, eye pain, eye redness, hearing loss, mouth pain, mouth swelling, nasal discharge, nose bleeding, nose congestion, nose pain, photophobia, tearing, throat pain, throat swelling, voice changes, others Respiratory: denies: cough, hemoptysis, orthopnea, SOB at rest, shortness of breath, SOB with excertion, stridor, wheezing, others Cardiovascular: reports: chest pain; denies: dizzy spells, diaphoresis, Dyspnea on exertion, edema, irregular heart beat, left arm pain, lightheadedness, palpitations, PND, syncope, others Gastrointestinal: denies: abdomen distended, abdominal pain, blood streaked bowels, constipated, diarrhea, dysphagia, difficulty swallowing, hematemesis, melena, nausea, poor appetite, poor fluid intake, rectal bleeding, rectal pain, vomiting, others Genitourinary: denies: abnormal vagina bleeding, burning, dyspareunia, dysuria, flank pain, frequency, hematuria, incontinence, pain, , vagina discha rge, urgency, others Neurological: denies: dizziness, fainting, headache, left sided numbness, left sided weakness, numbness, paresthesia, pre-existing deficit, right sided numbness, right sided weakness, seizure, speech problems, tingling, tremors, weakness, others Musculoskeletal: denies: back pain, gout, joint pain, joint swelling, muscle pain, muscle stiffness, neck pain, others Integumetry: denies: bruises, change in color, change in hair/nails, dryness, laceration, lesions, lumps, rash, wounds, others Allergic/Immunocompromised: denies: Difficulty Healing, Frequent Infections, Hives, Itching, others Hematologic/Lymphatic: denies: anemia, blood clots, easy bleeding, easy bruising, swollen glands, others Endocrine: denies: excessive hunger, excessive sweating, excessive thirst, excessive urination, flushing, intolerance to cold, intolerance to heat, unexplained weight gain, unexplained weight loss, others Psychiatric: denies: anxiety, bipolar disorder, depression, hopeless, panic disorder, schizophrenia, sleepless, suicidal, others Physical Exam General Appearance: No Apparent Distress, Normal HEENT: Normal ENT Inspection, Pharynx Normal, TMs Normal Neck: Full Range of Motion, Non-Tender, Normal, Normal Inspection Respiratory: Chest Non-Tender, Lungs Clear, No Accessory Muscle Use, No Respiratory Distress, Normal Breath Sounds Cardiovascular: No Edema, No JVD, No Murmur, No Gallop, Normal Peripheral Pulses, Regular Rate/Rhythm Breast Exam: Deferred Gastrointestinal: No Organomegaly, Non Tender, No Pulsatile Mass, Normal Bowel Sounds, Soft Genitalia: Deferred Pelvic: Deferred Rectal: Deferred Extremities: No calf tenderness, Normal capillary refill, Normal inspection, Normal range of motion, Non-tender, No pedal edema Musculoskeletal : Apperance: Normal Neurologic: Alert, condenser tube tender II-XII nml as Tested, No Motor Deficits, Normal Affect, Normal Mood, No Sensory Deficits Cerebellar Function: Normal Reflexes: Normal Skin: Dry, Normal Color, Warm Lymphatic: No Adenopathy Was a procedure done? Was a procedure done?: No CP Differential Dx Differential Diagnosis: Angina, Anxiety / Panic Attack, Electrolyte Disorder Differential Diagnosis: Angina, Chest Wall Pain, Costochondritis, Esophageal reflux/spasm, Gastritis, Myocardial Infarction, Pneumonia X-Ray, Labs, Meds, VS Vital Signs Date Time Temp Pulse Resp B/P (MAP) Pulse Ox O2 Delivery O2 Flow Rate FiO2 09/05/24 21:10 55 09/05/24 21:01 98.1 56 16 142/70 (94) 96 98.1 09/05/24 20:10 98.1 70 18 152/78 (102) 99 98.1 09/05/24 20:10 62 Lab Test 09/05/24 21:43 09/05/24 20:43 Range/Units Troponin I High Sensitivity 8 8 </=34 ng/L White Blood Count 8.5 4.4-10.8 10^3/uL Red Blood Count 4.44 4.0-5.20 10^6/uL Hemoglobin 13.9 12.2-16.2 g/dL Hematocrit 42.1 36.0-46.0 % Mean Corpuscular Volume 94.7 80.0-100.0 fL Mean Corpuscular Hemoglobin 31.4 28.0-32.0 pg Mean Corpuscular Hemoglobin Concent 33.1 32.0-36.0 g/dL Red Cell Distribution Width 15.6 H 11.8-14.3 % Platelet Count 205 140-450 10^3/uL Mean Platelet Volume 11.0 H 6.9-10.8 fL Neutrophils (%) (Auto) 70.6 37.0-80.0 % Lymphocytes (%) (Auto) 16.6 10.0-50.0 % Monocytes (%) (Auto) 11.9 0.0-12.0 % Eosinophils (%) (Auto) 0.5 0.0-7.0 % Basophils (%) (Auto) 0.4 0.0-2.0 % Neutrophils # (Auto) 6.0 1.6-8.6 10 ^3/uL Lymphocytes # (Auto) 1.4 0.4-5.4 10 ^3/uL Monocytes # (Auto) 1.0 0-1.3 10 ^3/uL Eosinophils # (Auto) 0 0-0.8 10 ^3/uL Basophils # (Auto) 0 0-0.2 10 ^3/uL Nucleated Red Blood Cells 0.0 % Sodium Level 143 136-145 mmol/L Potassium Level 4.0 3.5-5.1 mmol/L Chloride Level 110 H 98-107 mmol/L Carbon Dioxide Level 25 20-31 mmol/L Anion Gap 8 5-15 Blood Urea Nitrogen 22 9-23 mg/dL Creatinine 0.67 0.550-1.02 mg/dL Glomerular Filtration Rate Calc 94 >90 mL/min BUN/Creatinine Ratio 32.8 H 10.0-20.0 Serum Glucose 115 H 74-106 mg/dL Calcium Level 9.8 8.7-10.4 mg/dL Time of 1ST Reevaluation: 20:39 Reevaluation 1ST: Unchanged Patient Education/Counseling: Diagnosis, Treatment Family Education/Counseling: No Family Present Departure 1 Departure Time of Disposition: 23:23 (Patient presented with chest pain that was concerning for possible STEMI, ACS, PE, Pneumonia, Muscle Strain, COPD, Dissection. Data: 1. I ordered and reviewed the result of at least 3 labs including a CBC, BMP, and Troponin. 2. I independently interpreted the following tests: EKG which shows sinus arrhythmia and Chest X-ray which shows benign chest.Risk:This patient has a high risk of morbidity due to further diagnostic testing or treatment and may suffer from an acute cardiac or respiratory disorder. Workup reveals concern for ACS and patient should be admitted for further workup and possible expert consultation. ) Impression: Primary Impression: Acute chest pain Disposition: ADMITTED INPATIENT Admit to: Med Surg Condition: Serious Critical Care Note Critical Care Time?: Yes (35 min-critical care time only) Critical care comment: Active chest pains Authorized and Performed by: Alejandra Garcia MD Total critical care time: Approximately 37 minutes Due to a high probability of clinically significant, life threatening deterioration, the patient required my highest level of preparedness to intervene emergently and I personally spent this critical care time directly and personally managing the patient. This critical care time included obtaining a history; examining the patient; pulse oximetry; ordering and review of studies; arranging urgent treatment with development of a management plan; evaluation of patient's response to treatment; frequent reassessment; and, discussions with other providers. This critical care time was performed to assess and manage the high probability of imminent, life-threatening deterioration that could result in multi-organ failure. It was exclusive of separately billable procedures and treating other patients and teaching time. Please see my other sections and the rest of the note for further information on patient assessment and treatment. Stability Stability form required: No Heart Score Heart Score: Heart Score Response (Comments) Value History Moderate Suspicious 1 EKG Repolarization Disturb 1 Age >65 2 Risk Factors >3 or Hx ASHD 2 Troponin Normal limit 0 Total 6 I personally scribed for ALEJANDRA GARCIA MD ([email or web address]) on 09/05/24 at 20:44. Electronically submitted by Matt Benites ([email or web address]). ALEJANDRA GARCIA MD September 05, 2024 20:44
[2024-09-05 20:59] LABS: Basophils # (auto) 0 10 ^3/uL (0-0.2); Basophils % (auto) 0.4 % (0.0-2.0); Eosinophils # (auto) 0 10 ^3/uL (0-0.8); Eosinophils % (auto) 0.5 % (0.0-7.0); Hematocrit 42.1 % (36.0-46.0); Hemoglobin 13.9 g/dL (12.2-16.2); Lymphocytes # (auto) 1.4 10 ^3/uL (0.4-5.4); Lymphocytes % (auto) 16.6 % (10.0-50.0); Mean Corpuscular Hemoglobin 31.4 pg (28.0-32.0); Mean Corpuscular Hgb Conc. 33.1 g/dL (32.0-36.0); Mean Corpuscular Volume 94.7 fL (80.0-100.0); Monocytes % (auto) 11.9 % (0.0-12.0); Neutrophils % (auto) 70.6 % (37.0-80.0); Platelet Count (auto) 205 10^3/uL (140-450); Red Blood Cells 4.44 10^6/uL (4.0-5.20); Red Cell Distribution Width 15.6 % (11.8-14.3); White Blood Cell 8.5 10^3/uL (4.4-10.8)
[2024-09-05 21:00] VITALS: PULSE 56; RESP 16; O2SAT 96
[2024-09-05 21:05] LABS: Sodium 143 mmol/L (136-145)
[2024-09-05 21:06] LABS: Anion Gap 8 (5-15); Carbon Dioxide 25 mmol/L (20-31)
[2024-09-05 21:07] LABS: Calcium 9.8 mg/dL (8.7-10.4)
--- NOTE | 2024-09-05 21:08 | DVH ---
CHEST RADIOGRAPH Indication: chest pain Technique: Single frontal view of the chest was obtained COMPARISON: XY CHEST XRAY 1 VIEW on DOS: 07/30/24 FINDINGS: Lines and Tubes: None. Device noted overlying right lateral lower chest wall. Lungs: Clear Pleura: No effusion. No pneumothorax. Cardiomediastinal contours: Unremarkable Bones: Unremarkable IMPRESSION: No acute disease.
[2024-09-05 21:11] LABS: BUN/Creatinine Ratio 32.8 (10.0-20.0); Blood Urea Nitrogen 22 mg/dL (9-23)
[2024-09-05 21:13] LABS: Chloride 110 mmol/L (98-107); Glucose 115 mg/dL (74-106)
[2024-09-06] MEDS ORDERED: MORPHINE SULFATE INJ 2 MG/ml SYRG IV PRN
[2024-09-06] MEDS ORDERED: DOCUSATE SOD 100 MG CAP PO PRN
[2024-09-06] MEDS ORDERED: NITROGLYCERIN 0.4 MG SL TAB SL PRN
[2024-09-06] MEDS ORDERED: ONDANSETRON HCL 4 MG/2 ML VIAL IV PRN
--- NOTE | 2024-09-06 | DVHHP2 ---
History of Present Illness Reason for Visit: Acute chest pain History of Present Illness The patient is a 68-year-old female morbidly obese with past medical history of Coronary artery disease, AFib, CHF, hyperlipidemia, and hypertension who presented to [facility] ED with complaint of chest pain. Patient states she has been having intermittent episodes of left-sided chest pains with the past 4 days getting worse today that prompted this visit. Patient was seen and evaluated in the ED, laboratory data shows WBC 8.5, platelets 205, sodium 143, potassium 4.0, BUN 22, creatinine 0.67, glucose 115, troponin 8. Chest x- ray show no acute cardiopulmonary disease. On my assessment, patient denies chest pain at this moment, no palpitation, no diaphoresis, no shortness of breath, no nausea, no vomiting, no fever, no chills. Patient was admitted for further evaluation and medical management. Past Medical History AFIB, Asthma, CAD, CHF, High Lipids, HTN, Cerebral palsy. Past Surgical History Denies all surgeries Family History Reviewed, noncontributory to the management of this case. Past Social History The patient lives at home, denies smoking, alcohol or illicit drugs abuse. Review of Systems Constitutional: No: Fever, Chills, Sweats, Weakness, Malaise, Other Eyes: No: Pain, Vision change, Conjunctivae inflammation, Eyelid inflammation, Other, Redness ENT: No: Ear pain, Ear discharge, Nose pain, Nose discharge, Nose congestion, Mouth pain, Mouth swelling, Throat pain, Throat swelling, Other Respiratory: No: Cough, Dry, Shortness of breath, SOB with excertion, Wheezing, Hemoptysis, Pleuritic Pain, Sputum, Wheezing, Other Cardiovascular: Chest Pain; No: Palpitations, Orthopnea, Paroxysmal Noc. Dyspnea, Edema, Lt Headedness, Other Gastrointestinal: No: Nausea, Vomiting, Abdominal Pain, Diarrhea, Constipation, Melena, Hematochezia, Other Genitourinary: No Dysuria, No Frequency, No Incontinence, No Hematuria, No Retention, No Other Musculoskeletal: No: other, neck pain, shoulder pain, arm pain, back pain, hand pain, leg pain, foot pain Skin: No: Rash, Lesions, Jaundice, Bruising, Other Neurological: No: Weakness, Numbness, Incoordination, Change in speech, Confusion, Seizures, Other Allergies: Coded Allergies: Sulfa Antibiotics (Verified Allergy, Unknown, 11/25/23) Amlodipine (Unverified Adverse Reaction, Unknown, 07/10/24) Peripheral edema Exam Vital Signs Vital Signs Date Time Temp Pulse Resp B/P (MAP) Pulse Ox O2 Delivery O2 Flow Rate FiO2 09/05/24 23:25 58 09/05/24 21:01 98.1 16 142/70 (94) 96 98.1 General Appearance: Alert, Oriented X3, Cooperative, No acute distress HEENT: Atraumatic, PERRLA, EOMI, Mucous membr. moist/pink Respiratory: Clear to auscultation, Normal air movement Cardiovascular: Regular rate, Normal S1, Normal S2, No murmurs Abdominal: Normal bowel sounds, Soft, No tenderness, No hepatospenomegaly, No masses Extremities: No clubbing, No cyanosis, No edema, Normal pulses, No tenderness/swelling Skin: No rashes, No breakdown, No significant lesion Neuro: Normal gait, Normal speech, Strength at 5/5 X4 ext, Normal tone, Sensation intact, Cranial nerves 3-12 NL, Reflexes 2+ Psych/Mental Status: Mental status NL, Mood NL Labs/Xrays Labs Test 09/05/24 21:43 09/05/24 20:43 Range/Units Troponin I High Sensitivity 8 </=34 ng/L White Blood Count 8.5 4.4-10.8 10^3/uL Red Blood Count 4.44 4.0-5.20 10^6/uL Hemoglobin 13.9 12.2-16.2 g/dL Hematocrit 42.1 36.0-46.0 % Mean Corpuscular Volume 94.7 80.0-100.0 fL Mean Corpuscular Hemoglobin 31.4 28.0-32.0 pg Mean Corpuscular Hemoglobin Concent 33.1 32.0-36.0 g/dL Red Cell Distribution Width 15.6 H 11.8-14.3 % Platelet Count 205 140-450 10^3/uL Mean Platelet Volume 11.0 H 6.9-10.8 fL Neutrophils (%) (Auto) 70.6 37.0-80.0 % Lymphocytes (%) (Auto) 16.6 10.0-50.0 % Monocytes (%) (Auto) 11.9 0.0-12.0 % Eosinophils (%) (Auto) 0.5 0.0-7.0 % Basophils (%) (Auto) 0.4 0.0-2.0 % Neutrophils # (Auto) 6.0 1.6-8.6 10 ^3/uL Lymphocytes # (Auto) 1.4 0.4-5.4 10 ^3/uL Monocytes # (Auto) 1.0 0-1.3 10 ^3/uL Eosinophils # (Auto) 0 0-0.8 10 ^3/uL Basophils # (Auto) 0 0-0.2 10 ^3/uL Nucleated Red Blood Cells 0.0 % Sodium Level 143 136-145 mmol/L Potassium Level 4.0 3.5-5.1 mmol/L Chloride Level 110 H 98-107 mmol/L Carbon Dioxide Level 25 20-31 mmol/L Anion Gap 8 5-15 Blood Urea Nitrogen 22 9-23 mg/dL Creatinine 0.67 0.550-1.02 mg/dL Glomerular Filtration Rate Calc 94 >90 mL/min BUN/Creatinine Ratio 32.8 H 10.0-20.0 Serum Glucose 115 H 74-106 mg/dL Calcium Level 9.8 8.7-10.4 mg/dL PATIENT: NASIR ROSARIO RACCT: [id number] UNIT: [id number] : 1955 LOC: ER ROOM / BED: / AGE / SEX: 68 / F ADM STATUS: REG ER SERVICE 26 ORDERING PHYSICIAN: ALEJANDRA CUELLO MD PROCEDURE(s): CXRP - CHEST PORTABLE REASON: chest pain ORDER NUMBER(s): [id number], ACCESSION NUMBER(s): [id number] CHEST RADIOGRAPH Indication: chest pain Technique: Single frontal view of the chest was obtained COMPARISON: XY CHEST XRAY 1 VIEW on DOS: 07/30/24 FINDINGS: Lines and Tubes: None. Device noted overlying right lateral lower chest wall. Lungs: Clear Pleura: No effusion. No pneumothorax. Cardiomediastinal contours: Unremarkable Bones: Unremarkable IMPRESSION: No acute disease. Assessment/Plan Assessment/Plan Acute chest pain Generalized weakness Plan 1. Admit to telemetry unit 2. Breathing treatment 3. Pain control management 4. Management of fluids and electrolytes 5. Consultation for hospitalist 6. Diagnostic tests chest x-ray 7. DVT prophylaxis on aspirin 8. Repeat labs CBC, CMP in a.m. 9. Continue with current medical management 10. Treatment plan discussed with patient and RN. Patient verbalized understanding. Plan discussed with: Patient, Other (RN) Problem List: (1) Acute chest pain (2) Generalized weakness Date of Service: September 05, 2024 Billing Provider: CHANCE YOUNG DNP Common Visit Codes: [id number] INP/OBS CARE (HIGH) CHANCE YOUNG DNP September 06, 2024 00:00
[2024-09-06] MEDS: HYDROcodone-ACET 5/325MG TAB PO PRN (00:32)
[2024-09-06 05:46] LABS: Basophils # (auto) 0 10 ^3/uL (0-0.2); Basophils % (auto) 0.3 % (0.0-2.0); Eosinophils # (auto) 0.1 10 ^3/uL (0-0.8); Hemoglobin 12.2 g/dL (12.2-16.2); Lymphocytes # (auto) 1.5 10 ^3/uL (0.4-5.4); Lymphocytes % (auto) 19.5 % (10.0-50.0); Mean Corpuscular Hemoglobin 31.7 pg (28.0-32.0); Mean Corpuscular Volume 93.4 fL (80.0-100.0); Monocytes % (auto) 12.2 % (0.0-12.0); Neutrophils # (auto) 5.2 10 ^3/uL (1.6-8.6); Platelet Count (auto) 185 10^3/uL (140-450); Red Blood Cells 3.86 10^6/uL (4.0-5.20); Red Cell Distribution Width 15.1 % (11.8-14.3); White Blood Cell 7.8 10^3/uL (4.4-10.8)
[2024-09-06] MEDS: SODIUM CHLOR 0.9% PF (SALINE LOCK) 10ML VIAL/SYR IV SCH (06:00)
[2024-09-06 06:11] LABS: Alanine Aminotransferase 37 U/L (7-40); Albumin 3.7 g/dL (3.2-4.8); Alkaline Phosphatase 71 U/L (46-116); Anion Gap 6 (5-15); Aspartate Aminotransferase 28 U/L (13-40); BUN/Creatinine Ratio 35.5 (10.0-20.0); Bilirubin, Total 0.6 mg/dL (0.2-1.0); Blood Urea Nitrogen 22 mg/dL (9-23); Calcium 9.3 mg/dL (8.7-10.4); Carbon Dioxide 27 mmol/L (20-31); Chloride 111 mmol/L (98-107); Glucose 82 mg/dL (74-106); Potassium 3.7 mmol/L (3.5-5.1); Sodium 144 mmol/L (136-145); Total Protein 5.7 g/dL (5.7-8.2)
--- NOTE | 2024-09-06 06:28 | ECG ---
[facility] Test Date: 2024-09-05 Test Time: 23:25:03 Pat Name: NASIR ROSARIO Department: ED Room: [address] [place] [address] Gender: F Alp[place] Farmer: RADHA : 1955 Requested By: ALEJANDRA CUELLO Order Number: [id number] Reading MD: Mayank Vidales Measurements Intervals [place] Rate: 58 P: -33 [place]: 128 QRS: 10 QRSD: 82 T: 57 QT: 437 QTc: 430 Interpretive Statements Sinus rhythm Electronically Signed On 09-06-2024 9:23:15 PDT by Mayank Vidaels Please click the below link to view image of tracing.
--- NOTE | 2024-09-06 06:58 | ECG ---
[facility] [place] Test Date: 2024-09-05 Test Time: 21:10:45 Pat Name: NASIR ROSARIO Department: ED Room: [address] [place] [address] Gender: F Inspector Type: YF : 1955 Requested By: ALEJANDRA CUELLO Order Number: [id number] Reading MD: Mayank Vidales Measurements Intervals [place] Rate: 55 P: 10 [place]: 129 QRS: 2 QRSD: 89 T: 49 QT: 454 QTc: 435 Interpretive Statements Sinus rhythm Left ventricular hypertrophy Electronically Signed On 09-06-2024 9:22:57 PDT by Mayank Vidales Please click the below link to view image of tracing.
[2024-09-06] MEDS: ASPirin 81 mg TAB PO SCH (10:23)
[2024-09-06] MEDS: hydrALAZINE HCL 20 MG/ML VL IV PRN (12:14)
--- NOTE | 2024-09-06 12:36 | DVHPN2 ---
Subjective The patient is seen and examined at bedside. Still have a little bit of chest pain. Reviewed: Care Plan, H&P, Labs, Medications, Previous Orders, Radiology Changes from previous H/P or p: No Changes Eyes: No Pain, No Vision change, No Conjunctivae inflammation, No Eyelid inflammation, No Other, No Redness ENT: No Ear pain, No Ear discharge, No Nose pain, No Nose discharge, No Nose congestion, No Mouth pain, No Mouth swelling, No Throat pain, No Throat swelling, No Other Cardiovascular: Chest Pain; No Palpitations, No Orthopnea, No Paroxysmal Noc. Dyspnea, No Edema, No Lt Headedness, No Other Respiratory: No Cough, No Dry, No Shortness of breath, No SOB with excertion, No Wheezing, No Hemoptysis, No Pleuritic Pain, No Sputum, No Other Gastrointestinal: No Nausea, No Vomiting, No Abdominal Pain, No Diarrhea, No Constipation, No Melena, No Hematochezia, No Other Genitourinary: No Dysuria, No Frequency, No Incontinence, No Hematuria, No Retention, No Other Musculoskeletal: No other, No neck pain, No shoulder pain, No arm pain, No back pain, No hand pain, No leg pain, No foot pain Skin: No Rash, No Lesions, No Jaundice, No Bruising, No Other Objective Vitals Vital Signs Date Time Temp Pulse Resp B/P (MAP) Pulse Ox O2 Delivery O2 Flow Rate FiO2 09/06/24 10:00 60 14 124/39 (67) 95 09/05/24 21:01 98.1 98.1 09/05/24 21:00 Room Air* 0 21 General Appearance: Alert, Oriented X3, Cooperative, No acute distress HEENT: Atraumatic, PERRLA, EOMI, Mucous membr. moist/pink Neck: Supple Lungs: Clear to auscultation, Normal air movement Cardiovascular: Regular rate, Normal S1, Normal S2, No murmurs, Gallops, Rubs Abdomen: Normal bowel sounds, Soft, No tenderness Neuro: Cranial nerves 3-12 NL Psych/Mental Status: Mental status NL Medications Current Medications Medications Dose Ordered Sig/Alfonso Route Start Time Stop Time Status Last Admin Dose Admin Atorvastatin Calcium 20 mg HS PO 09/06/24 22:00 Aspirin 81 mg DAILY PO 09/06/24 10:00 09/06/24 10:23 81 MG Hydralazine HCl 10 mg Q6HP PRN IV 09/06/24 00:00 Sodium Chloride 10 ml Q8HR IV 09/06/24 06:00 09/06/24 06:00 10 ML Acetaminophen/ Hydrocodone Bitart 1 tab Q4HP PRN PO 09/06/24 00:00 09/06/24 12:13 1 TAB Ondansetron HCl 4 mg Q4HP PRN IV 09/06/24 00:00 Docusate Sodium 100 mg BIDPRN PRN PO 09/06/24 00:00 Acetaminophen 650 mg Q6HP PRN PO 09/06/24 00:00 Nitroglycerin 0.4 mg Q5MINP PRN SL 09/06/24 00:00 Morphine Sulfate 2 mg Q30M PRN IV 09/06/24 00:00 Laboratory Results Laboratory Tests 09/06/24 05:00 Chemistry Test 09/05/24 20:43 09/06/24 05:00 Calcium Level 9.8 mg/dL (8.7-10.4) 9.3 mg/dL (8.7-10.4) Albumin 3.7 g/dL (3.2-4.8) Total Protein 5.7 g/dL (5.7-8.2) LFT Test 09/06/24 05:00 Alanine Aminotransferase (ALT) 37 U/L (7-40) Alkaline Phosphatase 71 U/L (46-116) Aspartate Amino Transferase (AST) 28 U/L (13-40) Total Bilirubin 0.6 mg/dL (0.2-1.0) Labs and/or images reviewed: Labs reviewed by me Assessment/Plan Assessment/Plan Acute chest pain Generalized weakness Plan Continue current management. Waiting for liquid floor and wall applier. Discharge planning. This medical document was created using an electronic medical record system with [employer] direct computerized dictation system. Although this document has been carefully reviewed, there may still be some phonetic and typographical errors. These areas are purely typographical due to imperfections of the software programs, and do not reflect any compromise in the patient's medical care. Plan discussed with: Patient Date of Service: September 06, 2024 Billing Provider: YONI CORDOVA MD Common Visit Codes: [id number] INP/OBS CARE(HIGH) YONI CORDOVA MD September 06, 2024 12:36
[2024-09-06 15:33] VITALS: BP 189/82; PULSE 67; RESP 18; TEMP 97.9; O2SAT 96
[2024-09-06 17:01] VITALS: BP 142/65; PULSE 87; RESP 20; TEMP 98.4; O2SAT 96
[2024-09-06] MEDS: ACETAMINOPHEN 325 MG TAB PO PRN (17:40)
[2024-09-06 20:00] VITALS: PULSE 63; PULSE 73; RESP 18; O2SAT 99
[2024-09-06 21:00] VITALS: BP 145/75; PULSE 87; RESP 19; TEMP 97.9; O2SAT 95
[2024-09-06] MEDS: ATORVASTATIN 20 MG TAB PO SCH (21:51)
[2024-09-07] VITALS (8 sets, daily range): BP systolic 131–165; BP diastolic 51–82; PULSE 59–84; RESP 16–20; TEMP 97.3–98.2; O2SAT 95–98
--- NOTE | 2024-09-07 15:37 | DVHPN2 ---
Subjective The patient is seen and examined at bedside. Still have a little bit of chest pain. Reviewed: Care Plan, H&P, Labs, Medications, Previous Orders, Radiology Changes from previous H/P or p: No Changes Eyes: No Pain, No Vision change, No Conjunctivae inflammation, No Eyelid inflammation, No Other, No Redness ENT: No Ear pain, No Ear discharge, No Nose pain, No Nose discharge, No Nose congestion, No Mouth pain, No Mouth swelling, No Throat pain, No Throat swelling, No Other Cardiovascular: Chest Pain; No Palpitations, No Orthopnea, No Paroxysmal Noc. Dyspnea, No Edema, No Lt Headedness, No Other Respiratory: No Cough, No Dry, No Shortness of breath, No SOB with excertion, No Wheezing, No Hemoptysis, No Pleuritic Pain, No Sputum, No Other Gastrointestinal: No Nausea, No Vomiting, No Abdominal Pain, No Diarrhea, No Constipation, No Melena, No Hematochezia, No Other Genitourinary: No Dysuria, No Frequency, No Incontinence, No Hematuria, No Retention, No Other Musculoskeletal: No other, No neck pain, No shoulder pain, No arm pain, No back pain, No hand pain, No leg pain, No foot pain Skin: No Rash, No Lesions, No Jaundice, No Bruising, No Other Objective Vitals Vital Signs Date Time Temp Pulse Resp B/P (MAP) Pulse Ox O2 Delivery O2 Flow Rate FiO2 09/07/24 13:00 97.8 60 20 131/57 (81) 97 97.8 09/07/24 08:00 Room Air* 0 21 Intake/Output Intake and Output 09/07/24 07:00 Intake Total 1900 ml Output Total 1300 ml Balance 600 ml Intake Oral 1900 ml Output Urine Total 1300 ml # Voids 6 # Bowel Movements 2 General Appearance: Alert, Oriented X3, Cooperative, No acute distress HEENT: Atraumatic, PERRLA, EOMI, Mucous membr. moist/pink Neck: Supple Lungs: Clear to auscultation, Normal air movement Cardiovascular: Regular rate, Normal S1, Normal S2, No murmurs, Gallops, Rubs Abdomen: Normal bowel sounds, Soft, No tenderness Neuro: Cranial nerves 3-12 NL Psych/Mental Status: Mental status NL Medications Current Medications Medications Dose Ordered Sig/Alfonso Route Start Time Stop Time Status Last Admin Dose Admin Atorvastatin Calcium 20 mg HS PO 5/2/25 22:00 09/06/24 21:51 20 MG Aspirin 81 mg DAILY PO 09/06/24 10:00 09/07/24 09:03 81 MG Hydralazine HCl 10 mg Q6HP PRN IV 09/06/24 00:00 09/07/24 10:44 10 MG Sodium Chloride 10 ml Q8HR IV 09/06/24 06:00 09/07/24 05:39 10 ML Acetaminophen/ Hydrocodone Bitart 1 tab Q4HP PRN PO 09/06/24 00:00 09/07/24 09:04 1 TAB Ondansetron HCl 4 mg Q4HP PRN IV 09/06/24 00:00 Docusate Sodium 100 mg BIDPRN PRN PO 09/06/24 00:00 Acetaminophen 650 mg Q6HP PRN PO 09/06/24 00:00 09/07/24 02:29 650 MG Nitroglycerin 0.4 mg Q5MINP PRN SL 09/06/24 00:00 Morphine Sulfate 2 mg Q30M PRN IV 09/06/24 00:00 Laboratory Results Laboratory Tests 09/06/24 05:00 Microbiology Microbiology Date/Time Source Procedure Growth Status 09/07/24 08:50 Nose MRSA Screen - Final Complete Labs and/or images reviewed: Labs reviewed by me Assessment/Plan Assessment/Plan Acute chest pain Generalized weakness Plan Continue current management. Waiting for data programmer. This medical document was created using an electronic medical record system with [employer] direct computerized dictation system. Although this document has been carefully reviewed, there may still be some phonetic and typographical errors. These areas are purely typographical due to imperfections of the software programs, and do not reflect any compromise in the patient's medical care. Plan discussed with: Patient My Orders Orders - YONI CORDOVA MD Procedure Category Date Status Time Cleanse Wound With REX 09/07/24 In Process Wound Clean 09:48 Date of Service: September 07, 2024 Billing Provider: YONI CORDOVA MD Common Visit Codes: [id number] INP/OBS CARE(HIGH) YONI CORDOVA MD September 07, 2024 15:37
[2024-09-08] VITALS (8 sets, daily range): BP systolic 135–184; BP diastolic 57–84; PULSE 59–72; RESP 16–19; TEMP 97.6–97.9; O2SAT 95–98
--- NOTE | 2024-09-08 11:17 | DVHINCON2 ---
Date Seen: September 08, [address] Tena Reason for Consultation Chest pain, CHF History of Present Illness This 68-year-old female presents in the ED via EMS with a chief complaint of chest pain. The patient reports has not been feeling well for the past few days, followed by a sharp chest pain leading her to call 911. The patient states chest pain has been going on for the past few months. In the emergency department, the patient undergone a 12 lead ECG revealing sinus rhythm with left ventricular hypertrophy serial troponins are negative, and chest x-ray is unremarkable. The patient denies fever, chills, diaphoresis, shortness of breath, or dyspnea. Upon reviewing medical record, the patient was seen at this facility in June 2024 and undergone a nuclear test with negative for ischemia. Recent echocardiogram reveals 60%. 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 Jang and plan to repeat nuclear test due to unable to obtain medical record. Past medical history of hypertension, dyslipidemia, diastolic heart failure, asthma, chronic lymphedema, valvulopathy, and obesity. Past Medical History As stated in HPI Past Surgical History Ankle repair Family History: Cardiovascular disease G8 MOTHER (GALLBLADDER STONES), , Age: 90, Onset:60 years & older (had cancer but mother from gallbladder per patient) family hx1, , Age: 95, Onset:60 years & older (heart attack) FHx: bladder cancer G8 MOTHER (GALLBLADDER STONES), , Age: 90, Onset:60 years & older Family History Heart disease in grandmother and mother Social History The patient lives at home, denies smoking, alcohol or illicit drugs abuse. Allergies: Coded Allergies: Sulfa Antibiotics (Verified Allergy, Unknown, 11/25/23) Amlodipine (Unverified Adverse Reaction, Unknown, 07/10/24) Peripheral edema Home Meds Active Scripts Doxycycline Monohydrate (Doxycycline Monohydrate) 100 Mg Cap, 1 CAP PO BID, #14 CAP Prov:RUSSELL CORONA MD 08/20/24 Reported Medications Spironolactone (Spironolactone) 25 Mg Tab, 1 TAB PO DAILY for 90 Days, #90 09/06/24 Hydrochlorothiazide (Hydrochlorothiazide) 12.5 Mg Tab, 1 TAB PO DAILY for 30 Days, #30 09/06/24 Hydralazine HCl (Hydralazine HCl) 25 Mg Tab, 1 TAB PO TID for 30 Days, #90 09/06/24 Olmesartan Medoxomil (Olmesartan Medoxomil) 40 Mg Tab, 1 TAB PO DAILY@9 for 30 Days, #30 09/06/24 Nifedipine (Nifedipine Er) 30 Mg Tab, 1 TAB PO DAILY for 30 Days, #30 09/06/24 Tramadol Hcl (Tramadol Hcl) 50 Mg Tab, 1-2 TAB PO BID PRN for 30 Days, #120 08/01/24 Rosuvastatin Calcium (Rosuvastatin Calcium) 40 Mg Tab, 1 TAB PO DAILY for 90 Days, #90 06/10/24 Aspirin (Aspir-Low) 81 Mg Tab, 81 MG PO DAILY for 30 Days, MG 06/10/24 Gabapentin (Gabapentin) 100 Mg Cap, 1 CAP PO TID for 30 Days, #90 02/29/24 Review of Systems Constitutional: No symptom reported Ears, Nose, & Throat: No symptom reported Eyes: No symptom reported Neurological: No symptoms reported Pulmonary/Respiratory: No symptom reported Cardiovascular: Chest pain Gastrointestinal: No symptom reported Genitourinary: No symptom reported Musculoskeletal: No symptom reported Skin: No symptom reported Psychiatric: No symptom reported Endocrine: No symptom reported Hematologic/Lymphatic: No symptom reported Vital Signs Vital Signs Date Time Temp Pulse Resp B/P (MAP) Pulse Ox O2 Delivery O2 Flow Rate FiO2 09/08/24 09:00 97.7 71 19 135/84 (101) 97 97.7 09/08/24 07:57 Room Air* 0 21 Physical Exam INITIAL VITAL SIGNS: Reviewed by me GENERAL: Alert and interactive. No acute distress. HEAD: Head is normocephalic and atraumatic. EYES: EOMI, PERRL. No scleral icterus. No conjunctival injection. ENT: Moist mucous membranes. NECK: Supple, No masses, Full range of motion. RESPIRATORY: No tachypnea. Clear breath sounds bilaterally. No wheezing, rales, rhonchi. CV: Regular rate and rhythm. No dyspnea. Bilateral lower extremity chronic lymphedema GI/: Active bowel sounds, soft, nondistended, nontender. No guarding. No rebound. No masses. No CVA tenderness. INTEGUMENTARY: Warm and dry. Lymphedema NEUROLOGIC: Alert and oriented. Face is symmetric. Speech is normal. Moves all extremities equally. Labs/Diagnostic Data Labs Test 09/06/24 05:00 09/05/24 21:43 Range/Units White Blood Count 7.8 4.4-10.8 10^3/uL Red Blood Count 3.86 L 4.0-5.20 10^6/uL Hemoglobin 12.2 12.2-16.2 g/dL Hematocrit 36.0 # 36.0-46.0 % Mean Corpuscular Volume 93.4 80.0-100.0 fL Mean Corpuscular Hemoglobin 31.7 28.0-32.0 pg Mean Corpuscular Hemoglobin Concent 34.0 32.0-36.0 g/dL Red Cell Distribution Width 15.1 H 11.8-14.3 % Platelet Count 185 140-450 10^3/uL Mean Platelet Volume 11.2 H 6.9-10.8 fL Neutrophils (%) (Auto) 67.0 37.0-80.0 % Lymphocytes (%) (Auto) 19.5 10.0-50.0 % Monocytes (%) (Auto) 12.2 H 0.0-12.0 % Eosinophils (%) (Auto) 1.0 0.0-7.0 % Basophils (%) (Auto) 0.3 0.0-2.0 % Neutrophils # (Auto) 5.2 1.6-8.6 10 ^3/uL Lymphocytes # (Auto) 1.5 0.4-5.4 10 ^3/uL Monocytes # (Auto) 1.0 0-1.3 10 ^3/uL Eosinophils # (Auto) 0.1 0-0.8 10 ^3/uL Basophils # (Auto) 0 0-0.2 10 ^3/uL Nucleated Red Blood Cells 0.0 % Sodium Level 144 136-145 mmol/L Potassium Level 3.7 3.5-5.1 mmol/L Chloride Level 111 H 98-107 mmol/L Carbon Dioxide Level 27 20-31 mmol/L Anion Gap 6 5-15 Blood Urea Nitrogen 22 9-23 mg/dL Creatinine 0.62 0.550-1.02 mg/dL Glomerular Filtration Rate Calc 96 >90 mL/min BUN/Creatinine Ratio 35.5 H 10.0-20.0 Serum Glucose 82 74-106 mg/dL Calcium Level 9.3 8.7-10.4 mg/dL Total Bilirubin 0.6 0.2-1.0 mg/dL Aspartate Amino Transferase (AST) 28 13-40 U/L Alanine Aminotransferase (ALT) 37 7-40 U/L Alkaline Phosphatase 71 46-116 U/L Total Protein 5.7 5.7-8.2 g/dL Albumin 3.7 3.2-4.8 g/dL Troponin I High Sensitivity 8 </=34 ng/L Microbiology Date/Time Source Procedure Growth Status 09/07/24 08:50 Nose MRSA Screen - Final Complete PROCEDURE(s): CXRP - CHEST PORTABLE REASON: chest pain ORDER NUMBER(s): [id number], ACCESSION NUMBER(s): [id number] CHEST RADIOGRAPH Indication: chest pain Technique: Single frontal view of the chest was obtained COMPARISON: XY CHEST XRAY 1 VIEW on DOS: 07/30/24 FINDINGS: Lines and Tubes: None. Device noted overlying right lateral lower chest wall. Lungs: Clear Pleura: No effusion. No pneumothorax. Cardiomediastinal contours: Unremarkable Bones: Unremarkable IMPRESSION: No acute disease. Assessment Acute chest pain to rule out ACS Rule out CAD Hx of Diastolic heart failure Dyslipidemia Hypertension Chronic Lymphedema Plan/Recommendation (Dr. You): The patient undergone a nuclear test in June 2024 with negative for ischemia and yet continue to have chest pain, the patient may benefit from a coronary angiogram with left heart catheterization.The procedure was discussed with the p atient in full detail including risks and benefits. Risks include but are not limited to bleeding, contrast-induced nephropathy, stroke, and even . Scheduled left heart catheterization on 09/09/[address] You Soft IV fluid Recent echocardiogram reveals EF 60% Continue with aspirin and statins. Lipid-lowering agent Close cardiac surveillance This medical document was created using an electronic medical record system with voice recognition software and computerized dictation system. Although this document has been carefully reviewed, there might still be some phonetic and typographical errors. Occasional wrong-word or ``sound-alike�� substitutions may have occurred due to the inherent limitations of voice recognition software. These areas are purely typographical due to imperfections of the software programs and do not reflect any compromise in the patient's medical care. Please read the chart carefully and recognize, using context, where these substitutions have occurred. Plan discussed with: Patient Plan discussed with: Patient NYHA Physical activity limitations: Class1(None)absent sob, Date of Service: September 08, 2024 Billing Provider: MADONNA YOU MD Cardiology Common Codes: NOT BILLABLE Cardiology Consultation Codes: [id number] CONSULT <45MIN WANDER [employer] TE[employer]ER September 08, 2024 11:17
[2024-09-08] MEDS: SODIUM CHLORIDE 0.9% 1,000 ML IV SCH (12:22)
[2024-09-08 13:56] LABS: INR 1.02 (0.9-1.15); Partial Thromboplastin Time 26.9 SEC (24.5-34.5); Prothrombin Time 10.8 sec (9.3-11.8)
--- NOTE | 2024-09-08 22:46 | DVHPN2 ---
Subjective The patient is seen and examined at bedside. Still have a little bit of chest pain. Reviewed: Care Plan, H&P, Labs, Medications, Previous Orders, Radiology Changes from previous H/P or p: No Changes Eyes: No Pain, No Vision change, No Conjunctivae inflammation, No Eyelid inflammation, No Other, No Redness ENT: No Ear pain, No Ear discharge, No Nose pain, No Nose discharge, No Nose congestion, No Mouth pain, No Mouth swelling, No Throat pain, No Throat swelling, No Other Cardiovascular: Chest Pain; No Palpitations, No Orthopnea, No Paroxysmal Noc. Dyspnea, No Edema, No Lt Headedness, No Other Respiratory: No Cough, No Dry, No Shortness of breath, No SOB with excertion, No Wheezing, No Hemoptysis, No Pleuritic Pain, No Sputum, No Other Gastrointestinal: No Nausea, No Vomiting, No Abdominal Pain, No Diarrhea, No Constipation, No Melena, No Hematochezia, No Other Genitourinary: No Dysuria, No Frequency, No Incontinence, No Hematuria, No Retention, No Other Musculoskeletal: No other, No neck pain, No shoulder pain, No arm pain, No back pain, No hand pain, No leg pain, No foot pain Skin: No Rash, No Lesions, No Jaundice, No Bruising, No Other Objective Vitals Vital Signs Date Time Temp Pulse Resp B/P (MAP) Pulse Ox O2 Delivery O2 Flow Rate FiO2 09/08/24 21:00 97.6 72 16 152/57 (88) 96 97.6 09/08/24 07:57 Room Air* 0 21 Intake/Output Intake and Output 09/08/24 07:00 Intake Total 950 ml Balance 950 ml Intake Oral 950 ml # Voids 5 General Appearance: Alert, Oriented X3, Cooperative, No acute distress HEENT: Atraumatic, PERRLA, EOMI, Mucous membr. moist/pink Neck: Supple Lungs: Clear to auscultation, Normal air movement Cardiovascular: Regular rate, Normal S1, Normal S2, No murmurs, Gallops, Rubs Abdomen: Normal bowel sounds, Soft, No tenderness Neuro: Cranial nerves 3-12 NL Psych/Mental Status: Mental status NL Medications Current Medications Medications Dose Ordered Sig/Alfonso Route Start Time Stop Time Status Last Admin Dose Admin Atorvastatin Calcium 20 mg HS PO 09/06/24 22:00 09/08/24 20:57 20 MG Aspirin 81 mg DAILY PO 09/06/24 10:00 09/08/24 08:46 81 MG Hydralazine HCl 10 mg Q6HP PRN IV 09/06/24 00:00 09/08/24 12:23 10 MG Sodium Chloride 10 ml Q8HR IV 09/06/24 06:00 09/08/24 21:06 10 ML Acetaminophen/ Hydrocodone Bitart 1 tab Q4HP PRN PO 09/06/24 00:00 09/08/24 21:04 1 TAB Ondansetron HCl 4 mg Q4HP PRN IV 09/06/24 00:00 Docusate Sodium 100 mg BIDPRN PRN PO 09/06/24 00:00 Acetaminophen 650 mg Q6HP PRN PO 09/06/24 00:00 09/07/24 02:29 650 MG Nitroglycerin 0.4 mg Q5MINP PRN SL 09/06/24 00:00 Morphine Sulfate 2 mg Q30M PRN IV 09/06/24 00:00 Sodium Chloride 1,000 ml @ 60 mls/hr [id number] IV 09/08/24 11:15 09/08/24 12:22 60 MLS/HR Laboratory Results Laboratory Tests 09/06/24 05:00 Coagulation Test 09/08/24 13:28 Prothrombin Time 10.8 sec (9.3-11.8) Prothrombin Time INR 1.02 (0.9-1.15) Activated Partial Thromboplast Time 26.9 SEC (24.5-34.5) Microbiology Microbiology Date/Time Source Procedure Growth Status 09/07/24 08:50 Nose MRSA Screen - Final Complete Labs and/or images reviewed: Labs reviewed by me Assessment/Plan Assessment/Plan Acute chest pain Generalized weakness Plan Continue current management. Appreciate linderman machine operator's input Continuing wound care bilateral lower extremity Angiogram/cardiac catheterization in a.m. This medical document was created using an electronic medical record system with M*M flurency direct computerized dictation system. Although this document has been carefully reviewed, there may still be some phonetic and typographical errors. These areas are purely typographical due to imperfections of the software programs, and do not reflect any compromise in the patient's medical care. Plan discussed with: Patient Date of Service: September 08, 2024 Billing Provider: YONI CORDOVA MD Common Visit Codes: [id number] INP/OBS CARE(HIGH) YONI CORDOVA MD September 08, 2024 22:46
[2024-09-09] VITALS (11 sets, daily range): BP systolic 137–154; BP diastolic 38–87; PULSE 48–61; RESP 12–20; TEMP 97.5–98.6; O2SAT 94–99
[2024-09-09] MEDS: IODIXANOL 320MG/ML 100ML BTL IV ONE (08:59)
[2024-09-09] MEDS: HEPARIN IN NS 1000Units/500mL 1,500 ML ONE (08:59)
[2024-09-09] MEDS ORDERED: fentaNYL CITRATE 100 MCG/2 ML VL ONE (09:55)
[2024-09-09] MEDS: HEPARIN SODIUM (PORCINE) 5000 UNITS/ML 1ML VIAL ONE (09:55)
[2024-09-09] MEDS: ANGIOMAX 250 MG VIAL IV ONE (09:55)
[2024-09-09] MEDS: VERAPAMIL 2.5MG/ML INJ 2ML VIAL IV ONE (09:55)
[2024-09-09] MEDS: SODIUM CHL 0.9% 0 ML ONE (09:56)
[2024-09-09] MEDS: MIDAZOLAM HCL 2MG/2ML 2ml VIAL (1mg/ml) ONE (09:56)
[2024-09-09] MEDS: LIDOCAINE 2%HCL (LOCAL ANESTH.) INJ 20ML MDV ONE (09:56)
--- NOTE | 2024-09-09 10:22 | DVHPN2 ---
Progress Note Date Seen: September 09, 2024 Medical Necessity Reason Pt with a Central, PICC or Fol: No Subjective Patient reports: Feels better Objective vital signs Vital Sign Date Time Temp Pulse Resp B/P (MAP) Pulse Ox O2 Delivery O2 Flow Rate FiO2 09/09/24 09:00 98.6 50 16 143/67 (92) 98 98.6 09/09/24 08:00 Room Air* 0 21 Total Intake and Output 09/08/24 09/08/24 09/09/24 15:00 23:00 07:00 Intake Total 1400 ml 300 ml Balance 1400 ml 300 ml medications Current Medications Medications Dose Ordered Sig/Alfonso Route Start Time Stop Time Status Last Admin Dose Admin Atorvastatin Calcium 20 mg HS PO 09/06/24 22:00 09/08/24 20:57 20 MG Aspirin 81 mg DAILY PO 09/06/24 10:00 09/08/24 08:46 81 MG Hydralazine HCl 10 mg Q6HP PRN IV 09/06/24 00:00 09/08/24 12:23 10 MG Sodium Chloride 10 ml Q8HR IV 09/06/24 06:00 09/09/24 06:00 10 ML Acetaminophen/ Hydrocodone Bitart 1 tab Q4HP PRN PO 09/06/24 00:00 09/09/24 06:26 1 TAB Ondansetron HCl 4 mg Q4HP PRN IV 09/06/24 00:00 Docusate Sodium 100 mg BIDPRN PRN PO 09/06/24 00:00 Acetaminophen 650 mg Q6HP PRN PO 09/06/24 00:00 09/07/24 02:29 650 MG Nitroglycerin 0.4 mg Q5MINP PRN SL 09/06/24 00:00 Morphine Sulfate 2 mg Q30M PRN IV 09/06/24 00:00 Sodium Chloride 1,000 ml @ 60 mls/hr [id number] IV 09/08/24 11:15 09/09/24 03:55 60 MLS/HR Examination: GENERAL:Abnormal, HEENT:Abnormal, LUNGS:Abnormal, CVS:Abnormal, ABDOMEN:Abnormal laboratory and microbiology Laboratory Tests 09/06/24 05:00 Test 09/06/24 05:00 Range/Units Serum Glucose 82 74-106 mg/dL Microbiology Date/Time Source Procedure Growth Status 09/07/24 08:50 Nose MRSA Screen - Final Complete Problem List/Assessment/Plan Problem List/Assessment/Plan ACS obesity HTN HL s/p LHC no severe cad cont risk factor modificationd dc home when medically stable Plan discussed with: Patient My Orders My Orders Orders - MADONNA YOU MD Procedure Category Date Status Time Cl Left Heart Cath CL 09/09/24 Taken 09:40 Dietary Evaluation Review Recommendations by RD: Dietary education by RD Comments: 1) Encourage optimal PO intake - current dietary inake meets protein needs r/t cellulitis 2) Refer to outpatient RD for weight management 3) Follow-up with cardiology 4) Continue to monitor I&O, labs, and skin integrity Expected Outcomes/Goals: 1) appetite and labs to improve 2) wound to improve 3) f/u in 3-5 days Date of Service: September 09, 2024 Billing Provider: MADONNA YOU MD Common Visit Codes: NOT BILLABLE MADONNA YOU MD September 09, 2024 10:22
--- NOTE | 2024-09-09 10:24 | DVHOP2 ---
Operative Report Operative Report CARDIAC ASSET PROTECTION GREETER PROCEDURE REPORT [place], [place] Date of Service: 09/09/24 Bitumen Plant Operator: Madonna You MD PROCEDURES PERFORMED: Coronary angiogram, conscious sedation administration and supervision, less than 15 minutes; fluoroscopy use and interpretation. US guided vascular access saved to pacs system PREOPERATIVE DIAGNOSES: ACS , recurrent chest pain admission despite negative stress mpi POSTOP DIAGNOSIS: non cardiac chest pain DESCRIPTION OF PROCEDURE: The patient or appropriate family signed informed consent understanding the risks, benefits and alternatives of the procedure, they wished to proceed. The patient was brought [place] the [facility] [place] The patient was prepped in a sterile fashion. Sedation was used per cardiac cath protocol. I administered 2 mL of 2% lidocaine to the right wrist I used US guidance given diminuitve pulse. . With an antegrade front wall puncture. I cannulated the right radial artery and placed a 6-[place] Islander Glidesheath slender. Next, an intra-arterial spasmolytic was administered. Next, a - 5F tiger catheter and were used for coronary angiogram and LVEDP measurement and pressure pullback. At the completion of procedure, all guides and wires were removed, and there were no immediate complications. 4000 U of IV heparin given. FINDINGS: RCA: large vessel off the right sinus of Valsalva, there is no severe flow limiting stenosis. LEFT MAIN: Moderate size left main, it bifurcates into LAD and circumflex. no stenosis. CIRCUMFLEX: small caliber vessel coming off the left main with no flow limiting stenosis. LAD: LAD is a moderate caliber vessel coming of the left main. no severe stenosis CONCLUSIONS: 1. widely patent coronary arteries PLAN: Aggressive risk factor modification and medical management for the patient. MADONNA YOU MD September 09, 2024 10:24
--- NOTE | 2024-09-09 11:54 | DVHDS2 ---
Discharge Summary Date of Admission September 05, 2024 at 23:55 Date of Discharge: September 09, 2024 Labs/Diagnostic Data: Laboratory Results Test 09/08/24 13:28 09/06/24 05:00 09/05/24 21:43 Prothrombin Time 10.8 sec (9.3-11.8) Prothrombin Time INR 1.02 (0.9-1.15) Activated Partial Thromboplast Time 26.9 SEC (24.5-34.5) White Blood Count 7.8 10^3/uL (4.4-10.8) Red Blood Count 3.86 10^6/uL (4.0-5.20) Hemoglobin 12.2 g/dL (12.2-16.2) Hematocrit 36.0 % (36.0-46.0) Mean Corpuscular Volume 93.4 fL (80.0-100.0) Mean Corpuscular Hemoglobin 31.7 pg (28.0-32.0) Mean Corpuscular Hemoglobin Concent 34.0 g/dL (32.0-36.0) Red Cell Distribution Width 15.1 % (11.8-14.3) Platelet Count 185 10^3/uL (140-450) Mean Platelet Volume 11.2 fL (6.9-10.8) Neutrophils (%) (Auto) 67.0 % (37.0-80.0) Lymphocytes (%) (Auto) 19.5 % (10.0-50.0) Monocytes (%) (Auto) 12.2 % (0.0-12.0) Eosinophils (%) (Auto) 1.0 % (0.0-7.0) Basophils (%) (Auto) 0.3 % (0.0-2.0) Neutrophils # (Auto) 5.2 10 ^3/uL (1.6-8.6) Lymphocytes # (Auto) 1.5 10 ^3/uL (0.4-5.4) Monocytes # (Auto) 1.0 10 ^3/uL (0-1.3) Eosinophils # (Auto) 0.1 10 ^3/uL (0-0.8) Basophils # (Auto) 0 10 ^3/uL (0-0.2) Nucleated Red Blood Cells 0.0 % Sodium Level 144 mmol/L (136-145) Potassium Level 3.7 mmol/L (3.5-5.1) Chloride Level 111 mmol/L (98-107) Carbon Dioxide Level 27 mmol/L (20-31) Anion Gap 6 (5-15) Blood Urea Nitrogen 22 mg/dL (9-23) Creatinine 0.62 mg/dL (0.550-1.02) Glomerular Filtration Rate Calc 96 mL/min (>90) BUN/Creatinine Ratio 35.5 (10.0-20.0) Serum Glucose 82 mg/dL (74-106) Calcium Level 9.3 mg/dL (8.7-10.4) Total Bilirubin 0.6 mg/dL (0.2-1.0) Aspartate Amino Transferase (AST) 28 U/L (13-40) Alanine Aminotransferase (ALT) 37 U/L (7-40) Alkaline Phosphatase 71 U/L (46-116) Total Protein 5.7 g/dL (5.7-8.2) Albumin 3.7 g/dL (3.2-4.8) Troponin I High Sensitivity 8 ng/L (</=34) Other Laboratory Tests 09/06/24 05:00 Brief Hx & Hospital Course: Final diagnoses Noncardiac chest pain, most likely musculoskeletal Hypertension Chronic lymphedema of both lower extremities Chronic diastolic heart failure Obesity History of cerebral palsy No atrial fibrillation 68-year-old female who was admitted for chest pain, troponins are negative, she was seen by Cardiology, because she comes frequently for chest pain even though she had a negative stress test recently, cardiology recommended a heart catheterization which was just done and it was negative with a clean coronary arteries The patient is stable otherwise No other complaints Continue same home medications including the antibiotic for her cellulitis that she had last time Primary care physician as soon as possible as an outpatient Condition at Discharge: Stable Final Diagnosis/Problems List Noncardiac chest pain Discharge Disposition: Home SNF Discharge Will this Physician continue t: No Discharge Instruct/Medications Diet: Cardiac 2g Na,low cholest Activity: No Restrictions, As Tolerated Follow Up/Referral: PCP KAYLA Medications: Same home meds Discharge Statement: "Patient was advised to return to the ER or call 911 if any headaches, dizziness, shortness of breath, chest pain, abdominal pain, bleeding, fevers, or worsening of medical condition. Patient was counseled about treatment plan, medications, possible side effects, patient�verbalized understanding. All questions were answered to the best of my ability. This discharge took greater then 30 minutes in planning, reviewing documentation, counseling the patient, and discussing with other team members." ASSESSMENT ASSESSMENT Assessment Noncardiac chest pain Date of Service: September 09, 2024 Billing Provider: RUSSELL CORONA MD Common Visit Codes: NOT BILLABLE RUSSELL CORONA MD September 09, 2024 11:54
--- NOTE | 2024-09-10 06:56 | ECG ---
[facility] Test Date: 2024-09-05 Test Time: 20:10:48 Pat Name: NASIR ROSARIO Department: ED Room: [address] [place] [address] 8 Gender: F Ware Dresser: RADHA : 1955 Requested By: ALEJANDRA CUELLO Order Number: [id number] Reading MD: Mayank Vidales Measurements Intervals [place] Rate: 62 P: 9 DC: 127 QRS: -2 QRSD: 92 T: 41 QT: 437 QTc: 444 Interpretive Statements Sinus rhythm Left ventricular hypertrophy Electronically Signed On 09-12-2024 20:14:11 PDT by Mayank Vidales Please click the below link to view image of tracing.
== END 2024-09-09 16:38 | disposition home or self-care (01) | DRG 287 ==
LOC: ER 20:10 → EDBD 20:10 → OVERFLOW 23:55 → EAST 09-06 11:58 → TELE-EAST 09-07 00:27
PROVIDERS: ADMIT Internal Medicine Geriatric Medicine; ATTEND Internal Medicine Geriatric Medicine
PROC: 4A023N7 Measurement of Cardiac Sampling and Pressure, Left Heart, Percutaneous Approach (ICD-10-PCS; principal; 2024-09-09)
PROC: B211YZZ Fluoroscopy of Multiple Coronary Arteries using Other Contrast (ICD-10-PCS; 2024-09-09)
DX: R07.89 Other chest pain (principal); I50.32 Chronic diastolic (congestive) heart failure; E78.5 Hyperlipidemia, unspecified; I89.0 Lymphedema, not elsewhere classified; J45.909 Unspecified asthma, uncomplicated; Z68.33 Body mass index [BMI] 33.0-33.9, adult; I48.91 Unspecified atrial fibrillation; I25.10 Atherosclerotic heart disease of native coronary artery without angina pectoris; G80.9 Cerebral palsy, unspecified; E66.01 Morbid (severe) obesity due to excess calories; I11.0 Hypertensive heart disease with heart failure; Z63.4 Disappearance and death of family member; Z80.52 Family history of malignant neoplasm of bladder; Z82.49 Family history of ischemic heart disease and other diseases of the circulatory system; Z79.82 Long term (current) use of aspirin; Z79.899 Other long term (current) drug therapy; Z88.2 Allergy status to sulfonamides; Z88.8 Allergy status to other drugs, medicaments and biological substances
CPT/HCPCS: 36415; 71045; 80048; 80053; 84484; 85025; 85610; 85730; 87081; 93005; 93458; 99152; 99291; G0378; J2250; Q9967

== ENCOUNTER 2024-09-18 10:00 | Emergency (ER) | payer OTHER ==
[~2024-09-18] VITALS: Ht 167.6 cm; Wt 84.0 kg
[~2024-09-18 10:00] MED LIST changes: -AMLO1TAB22 PO
--- NOTE | 2024-09-18 10:18 | ED.PDOC ---
HPI (NEURO) HPI Comments 68 year old female presents to the ED with chief complaint of headache. Patient reports that she has been experiencing a headache since this morning along with noting that her BP at home had a systolic pressure in the 200s. Patient's BP was noted to be 152/79 in triage. Patient denies any chest pain, SOB, dizziness, nausea, vomiting, and blurred vision. Chief Complaint: Headache Time Seen by MD: 10:09 Primary Care Provider: JENELLE Nair Notes: Nurses Notes, Crack Off Person Notes, Medications, Allergies Information Source: Patient Mode of Arrival: Ambulatory Severity: Moderate Headache Severity: Moderate Timing: Hours Duration: Since onset Prehospital treatment: None Headache Quality: Aching Headache Location: Generalized Onset: At rest Circumstances: Spontaneous Associated Signs and Symptoms: Headache Past Medical History PAST MEDICAL HISTORY: AFIB, Asthma, CAD, CHF, High Lipids, HTN Surgical History: Denies all surgeries SALES PROJECT MANAGER History: No Pertinent SALES PROJECT MANAGER History Family History Family History: Reviewed,noncontributory to illness, Unknown Social History Smoker: Non-Smoker Alcohol: Denies ETOH Use Drugs: Denies Drug Use Lives In: Home Constitutional: denies: chills, diaphoresis, fatigue, fever, malaise, sweats, weakness, others EENTM: denies: blurred vision, double vision, ear bleeding, ear discharge, ear drainage, ear pain, ear ringing, eye pain, eye redness, hearing loss, mouth pain, mouth swelling, nasal discharge, nose bleeding, nose congestion, nose pain, photophobia, tearing, throat pain, throat swelling, voice changes, others Respiratory: denies: cough, hemoptysis, orthopnea, SOB at rest, shortness of breath, SOB with excertion, stridor, wheezing, others Cardiovascular: denies: chest pain, dizzy spells, diaphoresis, Dyspnea on exertion, edema, irregular heart beat, left arm pain, lightheadedness, palpitations, PND, syncope, others Gastrointestinal: denies: abdomen distended, abdominal pain, blood streaked bowels, constipated, diarrhea, dysphagia, difficulty swallowing, hematemesis, melena, nausea, poor appetite, poor fluid intake, rectal bleeding, rectal pain, vomiting, others Genitourinary: denies: abnormal vagina bleeding, burning, dyspareunia, dysuria, flank pain, frequency, hematuria, incontinence, pain, , vagina discharge, urgency, others Neurological: reports: headache; denies: dizziness, fainting, left sided numbness, left sided weakness, numbness, paresthesia, pre-existing deficit, right sided numbness, right sided weakness, seizure, speech problems, tingling, tremors, weakness, others Musculoskeletal: denies: back pain, gout, joint pain, joint swelling, muscle pain, muscle stiffness, neck pain, others Integumetry: denies: bruises, change in color, change in hair/nails, dryness, laceration, lesions, lumps, rash, wounds, others Allergic/Immunocompromised: denies: Difficulty Healing, Frequent Infections, Hives, Itching, others Hematologic/Lymphatic: denies: anemia, blood clots, easy bleeding, easy bruising, swollen glands, others Endocrine: denies: excessive hunger, excessive sweating, excessive thirst, excessive urination, flushing, intolerance to cold, intolerance to heat, unexplained weight gain, unexplained weight loss, others Psychiatric: denies: anxiety, bipolar disorder, depression, hopeless, panic disorder, schizophrenia, sleepless, suicidal, others All Other Systems: Reviewed and Negative Physical Exam General Appearance: Moderate Distress, Normal HEENT: Normal ENT Inspection, Pharynx Normal, TMs Normal Neck: Full Range of Motion, Non-Tender, Normal, Normal Inspection Respiratory: Chest Non-Tender, Lungs Clear, No Accessory Muscle Use, No Respiratory Distress, Normal Breath Sounds Cardiovascular: No Edema, No JVD, No Murmur, No Gallop, Normal Peripheral Pulses, Regular Rate/Rhythm Breast Exam: Deferred Gastrointestinal: No Organomegaly, Non Tender, No Pulsatile Mass, Normal Bowel Sounds, Soft Genitalia: Deferred Pelvic: Deferred Rectal: Deferred Extremities: No calf tenderness, Normal capillary refill, Normal inspection, Normal range of motion, Non-tender, No pedal edema Musculoskeletal : Apperance: Normal Neurologic: Alert, remote sensing scientist II-XII nml as Tested, No Motor Deficits, Normal Affect, Normal Mood, No Sensory Deficits Cerebellar Function: NOT DONE Reflexes: NOT DONE Skin: Dry, Normal Color, Warm Peripheral Pulses: 3+ Radial (R), 3+ Radial (L) Lymphatic: No Adenopathy Was a procedure done? Was a procedure done?: No Differential Diagnosis (SZ) Seizure: Psychogenic Seizure, Closed Head Injury, CVA/TIA X-Ray, Labs, Meds, VS Vital Signs Date Time Temp Pulse Resp B/P (MAP) Pulse Ox O2 Delivery O2 Flow Rate FiO2 09/18/24 10:06 98.0 51 18 156/81 (106) 97 98.0 Patient alert. Came in because of high blood pressure. Vitals stable. Answering questions. Spoke with her physician. Doctor Sal discharge the patient. He stated that all the workup has been done and she does not need to be in the hospital. Explained to the patient that everything is normal spoke with the hospitalist hospitalist at bedside talking to the patient at 2:52 p.m.. Was told to follow up with her primary care physician. Was told to come back if there is any problem. Time of 1ST Reevaluation: 11:09 Reevaluation 1ST: Unchanged Patient Education/Counseling: Diagnosis, Treatment Family Education/Counseling: No Family Present Additional Information The following tests were ordered, and results were reviewed by me: UA Additional Information was gathered from interviewing the following independent historians: None I reviewed and agreed with the following test results read by other providers: None I discussed treatment and results with medical personnel and: patient Comprehensive systems review obtained and negative except for what is stated in the HPI. Departure 1 Departure Time of Disposition: 14:53 Impression: Primary Impression: Hypertensive urgency Disposition: 01 HOME / SELF CARE / HOMELESS Condition: Good (Was at) Discharged With: Self (The lady) Comments Spoke to and examined patient at 1000, discussing treatment plan at this time. Critical Care Note Critical Care Time?: No Stability Stability form required: No Heart Score Heart Score: Heart Score Response (Comments) Value History Slightly Suspicious 0 EKG Normal 0 Age >65 ([place] [address] the sad 66-year-old of other same day his white size his portable I want white size and given might nineElderly people urosepsis Kiran gas no way) 2 Risk Factors 1 or 2 risk factors 1 Troponin Normal limit (IC one sign of labor I have no problem because the does not run alert case early people like done with any) 0 Total 3 I personally scribed for SHAGGY DEVRIES MD ([email or web address]) on 09/18/24 at 10:18. Electronically submitted by Mitchell Bradshaw ([email or web address]). SHAGGY DEVRIES MD September 18, 2024 10:18
[2024-09-18 15:10] VITALS: BP 122/62; PULSE 60; RESP 17; TEMP 97.4; O2SAT 99
[2024-09-18] MEDS ORDERED: NIFE1TAB31 PO (15:10)
[2024-09-18] MEDS: NIFEdipine ER 30 MG TAB PO ONE (15:15)
[2024-09-18] MEDS: ACETAMINOPHEN 325 MG TAB PO ONE (15:15)
[2024-09-18] MEDS: HYDROcodone-ACET 10/325MG TAB PO ONE (15:16)
--- NOTE | 2024-09-18 15:51 | DVHINCON2 ---
Date Seen: September 18, 2024 Reason for Consultation High blood pressure and headache History of Present Illness 68-year-old female with a history of hypertension and chronic lymphedema comes with a chief complaint of headache and high blood pressure She said her blood pressure was more than 200 this morning, here her blood pressure was 156/81 and repeat this afternoon is 122/62 The patient has been here in the hospital lately several times for chest pain and she was evaluated with a stress test which was negative in then she also had an angiogram which showed normal coronary arteries She takes nifedipine 30 mg daily at home Past Medical History Hypertension Chronic lymphedema Chronic diastolic heart failure Obesity History of cerebral palsy Family History: Cardiovascular disease G8 MOTHER (GALLBLADDER STONES), , Age: 90, Onset:60 years & older (had cancer but mother from gallbladder per patient) family hx1, , Age: 95, Onset:60 years & older (heart attack) FHx: bladder cancer G8 MOTHER (GALLBLADDER STONES), , Age: 90, Onset:60 years & older Allergies: Coded Allergies: Sulfa Antibiotics (Verified Allergy, Unknown, 11/25/23) Amlodipine (Unverified Adverse Reaction, Unknown, 07/10/24) Peripheral edema Home Meds Active Scripts Nifedipine (Nifedipine Er) 30 Mg Tab, 1 TAB PO BID PRN for 30 Days, #60 TAB 3 Refills Prov:RUSSELL CORONA MD 09/18/24 Doxycycline Monohydrate (Doxycycline Monohydrate) 100 Mg Cap, 1 CAP PO BID, #14 CAP Prov:RUSSELL CORONA MD 08/20/24 Reported Medications Spironolactone (Spironolactone) 25 Mg Tab, 1 TAB PO DAILY for 90 Days, #90 09/06/24 Hydrochlorothiazide (Hydrochlorothiazide) 12.5 Mg Tab, 1 TAB PO DAILY for 30 Days, #30 09/06/24 Hydralazine HCl (Hydralazine HCl) 25 Mg Tab, 1 TAB PO TID for 30 Days, #90 09/06/24 Olmesartan Medoxomil (Olmesartan Medoxomil) 40 Mg Tab, 1 TAB PO DAILY@9 for 30 Days, #30 09/06/24 Nifedipine (Nifedipine Er) 30 Mg Tab, 1 TAB PO DAILY for 30 Days, #30 09/06/24 Tramadol Hcl (Tramadol Hcl) 50 Mg Tab, 1-2 TAB PO BID PRN for 30 Days, #120 08/01/24 Rosuvastatin Calcium (Rosuvastatin Calcium) 40 Mg Tab, 1 TAB PO DAILY for 90 Days, #90 06/10/24 Aspirin (Aspir-Low) 81 Mg Tab, 81 MG PO DAILY for 30 Days, MG 06/10/24 Gabapentin (Gabapentin) 100 Mg Cap, 1 CAP PO TID for 30 Days, #90 02/29/24 Vital Signs Vital Signs Date Time Temp Pulse Resp B/P (MAP) Pulse Ox O2 Delivery O2 Flow Rate FiO2 09/18/24 15:10 97.4 60 17 122/62 (82) 99 97.4 Physical Exam Alert and oriented in no apparent distress She is on room air Lungs are clear to auscultation Heart regular rate and rhythm no murmurs Extremities no edema except for chronic lymphedema Plan/Recommendation Uncontrolled hypertension Chronic lymphedema Chronic diastolic heart failure Obesity History of cerebral palsy Plan Discharged home Increase nifedipine ER to 30 mg twice a day Resume other home medications Follow up with PCP as soon as possible Plan discussed with: Patient Date of Service: September 18, 2024 Billing Provider: RUSSELL CORONA MD Common Visit Codes: NOT BILLABLE RUSSELL CORONA MD September 18, 2024 15:51
== END 2024-09-18 15:30 | disposition home or self-care (01) ==
LOC: ER 10:00 → EDBD 10:00 → ER 15:30
DX: I16.0 Hypertensive urgency (principal); I11.0 Hypertensive heart disease with heart failure; I50.9 Heart failure, unspecified; E78.5 Hyperlipidemia, unspecified; I48.91 Unspecified atrial fibrillation; J45.909 Unspecified asthma, uncomplicated; Z79.82 Long term (current) use of aspirin; Z79.899 Other long term (current) drug therapy; Z88.2 Allergy status to sulfonamides; Z88.8 Allergy status to other drugs, medicaments and biological substances

== ENCOUNTER 2024-10-10 16:55 | Inpatient (IN) | payer OTHER ==
[~2024-10-10] VITALS: Ht 167.6 cm; Wt 91.2 kg
--- NOTE | 2024-10-10 17:18 | ED.PDOC ---
Musculoskeletal HPI Comments HPI 68 y.o female presents to the ED via EMS for a chief complaint of left leg pain that started today. Patient reports recent left leg stent placement on 10/03/24 but states pain is not near the surgical site but above the knee which is worse on palpation. Patient denies any recent trauma to pain site, numbness, erythema, or open wounds. Patient had a left stent placed on the right leg on 09/26/24. Patient at this time is not on any blood thinners or antibiotics. Patient has not followed up with PCP s/p surgery Patient ambulates very little and uses her wheelchair most of the time to get around. Patient is not on anticoagulation at this time. Patient received 200 mics of fentanyl prior to arrival by EMS. Patient reports allergies to sulfa antibiotics and amlodipine Vitals Temperature: 98.2 F Heart Rate: 52 Blood pressure: 123/79 SPO2: 94 % RR:18 Past Medical History: Lymphedema, CHF, HTN, Cerebral palsy, heart murmur, bradycardia Past Surgical History: Bilateral leg stent placement. and bilateral foot Brief Hx & Hospital Course: Final diagnoses Noncardiac chest pain, most likely musculoskeletal Hypertension Chronic lymphedema of both lower extremities Chronic diastolic heart failure Obesity History of cerebral palsy No atrial fibrillation Bradycardia HPI: Poor Historian. REVIEW OF SYSTEMS: CONSTITUTIONAL: Denies acute: fever, diaphoresis, chills, generalized weakness. HEAD: Denies acute: headache, photophobia Eyes: Denies acute: Double vision, vision loss, eye pain, eye discharge. EARS: Denies acute: tinnitus, hearing loss, ear discharge, ear pain, THROAT: Denies acute: sore throat, swelling, difficulty swallowing , pain with swallowing, change in voice. NECK: Denies acute: neck pain, neck swelling, stiff neck. HEART: Denies acute : chest pain, palpitations, LUNGS: Denies acute: SOB, wheezing, cough, hemoptysis ABDOMEN: Denies acute: abdominal pain, Nausea, Vomiting, diarrhea, melena , hematemesis, hematochezia SKIN: Denies acute: rash, redness, lesions, itchiness. EXTREMITIES: Denies acute: calf pain, numbness, tingling, weakness, Denies acute: Low back pain. Neuro: Denies acute: focal neurological deficit, motor or sensory focal neurological deficit, tremors, seizure like activity, confusion, dizziness, change in mental status, loss of bowel or bladder function, cauda equina like symptoms. : Denies acute: dysuria, hematuria, flank pain, increase in urinary frequency. PSYCH: Denies acute: hallucination, suicidal ideation, homicidal ideation. FEMALE: Denies acute: abnormal vaginal bleeding, foul odor, unusual discharge. PHYSICAL EXAM: General: ---mild-----acute distress, awake and alert. Head: normocephalic, atraumatic. Neck: supple, trachea is midline, no swelling. Throat: Normal phonation. Eyes:, no erythema, no purulent discharge, no proptosis, no icterus. Heart: regular rate, regular rhythm, no significant murmur appreciated. Lungs: no apparent respiratory distress, Able to speak in full sentences. No wheezing, no rhonchi, no crackles. No stridors Clear to auscultation bilaterally. Abdomen: non tender to palpation, non distended, soft, no guarding, no rebound, + bowel sounds. Neuro: Awake, Alert, oriented to name, self, situation, follows commands GCS=15. Speech is normal. Skin: no petechia, no purpura, no cyanosis, non-pale, not jaundice. Evaluation of the area of complaint: Patient points to a focal area of the left lower extremity above the knee at the medial aspect of the distal thigh focal area of pain without any erythema or deformity or swelling. Patient has her bilateral lower extremities wrapped in Kerlix. motor and sensory are present. Patient has chronic lymphedema in bilateral lower extr emity. Patient receives wound care at home at least twice a day most recently on Monday. I unwrapped the leg left lower extremity or her complaint is. Her pain is above the knee where the wrapping is not present. There is noted pitting edema and associated erythema. Patient has already completed the course of Keflex at home. Makes eye contact. moves all four extremities. Face: no apparent facial droop. Pedal pulses are palpable. ED COURSE: Chief Complaint: Lower Extremity Time Seen by MD: 16:52 Primary Care Provider: UNKNOWN Reviewed Notes: Color Matcher Notes, Allergies Allergies: Coded Allergies: Sulfa Antibiotics (Verified Allergy, Unknown, 11/25/23) Amlodipine (Unverified Adverse Reaction, Unknown, 07/10/24) Peripheral edema Home Meds Active Scripts Nifedipine (Nifedipine Er) 30 Mg Tab, 1 TAB PO BID PRN for 30 Days, #60 TAB 3 Refills Prov:RUSSELL CORONA MD 09/18/24 Doxycycline Monohydrate (Doxycycline Monohydrate) 100 Mg Cap, 1 CAP PO BID, #14 CAP Prov:RUSSELL CORONA MD 08/20/24 Reported Medications Spironolactone (Spironolactone) 25 Mg Tab, 1 TAB PO DAILY for 90 Days, #90 09/06/24 Hydrochlorothiazide (Hydrochlorothiazide) 12.5 Mg Tab, 1 TAB PO DAILY for 30 Days, #30 09/06/24 Hydralazine HCl (Hydralazine HCl) 25 Mg Tab, 1 TAB PO TID for 30 Days, #90 09/06/24 Olmesartan Medoxomil (Olmesartan Medoxomil) 40 Mg Tab, 1 TAB PO DAILY@9 for 30 Days, #30 09/06/24 Nifedipine (Nifedipine Er) 30 Mg Tab, 1 TAB PO DAILY for 30 Days, #30 09/06/24 Tramadol Hcl (Tramadol Hcl) 50 Mg Tab, 1-2 TAB PO BID PRN for 30 Days, #120 08/01/24 Rosuvastatin Calcium (Rosuvastatin Calcium) 40 Mg Tab, 1 TAB PO DAILY for 90 Days, #90 06/10/24 Aspirin (Aspir-Low) 81 Mg Tab, 81 MG PO DAILY for 30 Days, MG 06/10/24 Gabapentin (Gabapentin) 100 Mg Cap, 1 CAP PO TID for 30 Days, #90 02/29/24 Information Source: Patient, Emergency Med Personnel Mode of Arrival: EMS Past Medical History PAST MEDICAL HISTORY: AFIB, Asthma, CAD, CHF, High Lipids, HTN Surgical History (Other): Bilateral leg stent and foot HALF BACKER History: No Pertinent HALF BACKER History Family History Family History: Reviewed,noncontributory to illness, Unknown Social History Smoker: Non-Smoker Alcohol: Denies ETOH Use Drugs: Denies Drug Use Lives In: Home Was a procedure done? Was a procedure done?: No Differential Diagnosis EXT Differential Diagnosis: Cellulitis, Deep Vein Thrombosis, Gout, Contusion, Strain, Other (Leg swellingDdx include but not limited to DVT, ischemic limb, pitting edema, volume overload, CHF, cellulitis, hematoma, compartment syndrome, dependent edema, venous stasis.) X-Ray, Labs, Meds, VS Vital Signs Date Time Temp Pulse Resp B/P (MAP) Pulse Ox O2 Delivery O2 Flow Rate FiO2 10/10/24 23:00 97.6 59 16 149/73 (98) 98 97.6 10/10/24 17:03 98.2 52 18 123/79 (94) 94 98.2 Lab Test 10/10/24 17:24 Range/Units White Blood Count 5.6 4.4-10.8 10^3/uL Red Blood Count 4.55 4.0-5.20 10^6/uL Hemoglobin 14.1 12.2-16.2 g/dL Hematocrit 42.4 36.0-46.0 % Mean Corpuscular Volume 93.1 80.0-100.0 fL Mean Corpuscular Hemoglobin 30.9 28.0-32.0 pg Mean Corpuscular Hemoglobin Concent 33.2 32.0-36.0 g/dL Red Cell Distribution Width 14.3 11.8-14.3 % Platelet Count 172 140-450 10^3/uL Mean Platelet Volume 11.6 H 6.9-10.8 fL Neutrophils (%) (Auto) 58.9 37.0-80.0 % Lymphocytes (%) (Auto) 27.7 10.0-50.0 % Monocytes (%) (Auto) 11.3 0.0-12.0 % Eosinophils (%) (Auto) 1.7 0.0-7.0 % Basophils (%) (Auto) 0.4 0.0-2.0 % Neutrophils # (Auto) 3.3 1.6-8.6 10 ^3/uL Lymphocytes # (Auto) 1.6 0.4-5.4 10 ^3/uL Monocytes # (Auto) 0.6 0-1.3 10 ^3/uL Eosinophils # (Auto) 0.1 0-0.8 10 ^3/uL Basophils # (Auto) 0 0-0.2 10 ^3/uL Nucleated Red Blood Cells 0.1 % Erythrocyte Sedimentation Rate 12 0-20 mm/hr Sodium Level 145 136-145 mmol/L Potassium Level 4.3 3.5-5.1 mmol/L Chloride Level 113 H 98-107 mmol/L Carbon Dioxide Level 23 20-31 mmol/L Anion Gap 9 5-15 Blood Urea Nitrogen 17 9-23 mg/dL Creatinine 0.74 0.550-1.02 mg/dL Glomerular Filtration Rate Calc 87 >90 mL/min BUN/Creatinine Ratio 23.0 H 10.0-20.0 Serum Glucose 103 74-106 mg/dL Lactic Acid Level 0.9 0.4-2.0 mmol/L Calcium Level 9.8 8.7-10.4 mg/dL Total Bilirubin 0.4 0.2-1.0 mg/dL Aspartate Amino Transferase (AST) 25 13-40 U/L Alanine Aminotransferase (ALT) 23 7-40 U/L Alkaline Phosphatase 83 46-116 U/L C-Reactive Protein High Sensitivity 0.14 <1.0 mg/dL B-Type Natriuretic Peptide 112.80 0-100 pg/mL Total Protein 6.2 5.7-8.2 g/dL Albumin 4.3 3.2-4.8 g/dL [place] [address] Ph: [phone] DIAGNOSTIC IMAGING Diagnostic Imaging Report : [id number] Signed PATIENT: NASIR ROSARIO RACCT: [id number] UNIT: [id number] : 1955 LOC: ER ROOM / BED: / AGE / SEX: 68 / F ADM STATUS: REG ER SERVICE [id number] ORDERING PHYSICIAN: IZABEL NUNEZ DO PROCEDURE(s): LLDVT - LT Lower DVT REASON: pain post op ORDER NUMBER(s): [id number], ACCESSION NUMBER(s): [id number] LEFT LOWER EXTREMITY VENOUS DUPLEX REASON FOR EXAMINATION: Left lower extremity pain and edema. COMPARISON: US BILAT LOWER DVT on DOS: 08/22/24, US BILAT LOWER DVT on DOS: 01/19/24 TECHNIQUE: Using real-time freeze-frame technique with a high-frequency transducer, multiple longitudinal and transverse sections were obtained. Simultaneous color flow and spectral Doppler imaging was performed. FINDINGS: No intraluminal filling defect is identified. Normal venous comp ressibility is seen and there is flow augmentation. Note that the left posterior tibial vein was not evaluated due to overlying bandages. Color flow Doppler imaging is unremarkable. IMPRESSION: NO EVIDENCE OF DEEP VENOUS THROMBOSIS. ATED BY: FELIPE REYES MD DICTATED DATE/TIME: 10/10/241808 SIGNED BY: FELIPE REYES MD SIGNED DATE/TIME: 10/10/241808 CC: [place] [id number] Ph: [phone] DIAGNOSTIC IMAGING Diagnostic Imaging Report : [id number] Signed PATIENT: NASIR ROSARIO RACCT: [id number] UNIT: [id number] : 1955 LOC: ER ROOM / BED: / AGE / SEX: 68 / F ADM STATUS: REG ER SERVICE 12 ORDERING PHYSICIAN: IZABEL NUNEZ DO PROCEDURE(s): LLEAD - Lt Low Ext Art Duplex REASON: pain post op ORDER NUMBER(s): [id number], ACCESSION NUMBER(s): [id number] LEFT LOWER EXTREMITY ARTERIAL DUPLEX ULTRASOUND STUDY: REASON FOR EXAM: pain post op TECHNIQUE: The full lengths of the arterial segments were evaluated with color- flow Doppler ultrasound. Suspected abnormalities were evaluated with felix scale ultrasound. [employer] spectral Doppler waveforms, with velocity measurements were obtained. Spectral waveforms with velocity measurements were obtained 2 to 4 cm central to any areas of significant stenosis. Common femoral, superficial femoral, popliteal, posterior tibial, anterior tibial, and dorsal pedal arteries were evaluated. FINDINGS: Left: There is mild diffuse atherosclerotic plaque throughout the left lower extremity. The common femoral artery waveform is multiphasic with a brisk upstroke. The superficial femoral and popliteal arteries are patent with multiphasic waveforms. The calf arteries are not visualized due to overlying ba ndaging. There is subcutaneous edema in the tissues of the popliteal fossa. IMPRESSION: Mild diffuse atherosclerosis. No evidence of arterial occlusion in the visualized arteries of the left lower extremity. The calf arteries are not evaluated due to overlying bandaging. Edema in the subcutaneous tissues in the popliteal fossa. ATED BY: FELIPE REYES MD DICTATED DATE/TIME: 10/10/241831 SIGNED BY: FELIPE REYES MD SIGNED DATE/TIME: 10/10/241831 CC: Time of 1ST Reevaluation: 18:00 Reevaluation 1ST: Unchanged Patient Education/Counseling: Diagnosis, Treatment Family Education/Counseling: No Family Present Comments Patient presented with the above HPI.---leg pain/erythema---workup was initiated. patient was found with the above mentioned diagnosis. the following medications were ordered: please refer to order lists of meds and tests obtained by myself Dr. Nunez. Patient ED course and VS have been stabilized. Patient has been reassessed in the ED and remained in a stable condition. Pertinent incidental findings were discussed with the patient and/or family. Patient/family voices understanding and is agreeable with plan. Patient has been observed in the ED adequate length of time to insure improvement/stability. Escalation of care considered: Consideration of escalation to observation or admission Patient was ADMITTED to the medicine team for further evaluation and treatment of their presentation. All the reports of any imaging studies that were ordered by myself were reviewed by myself. Departure 1 Departure Time of Disposition: 21:05 Impression: Primary Impression: Lower extremity pain, left Additional Impression: Cellulitis Disposition: ADMITTED INPATIENT Admit to: Tele Condition: Guarded Discharged With: Self Critical Care Note Critical Care Time?: No I personally scribed for IZABEL NUNEZ DO ([email or web address]) on 10/10/24 at 17:18. Electronically submitted by Aniyah Rodriguez ([email or web address]). I personally scribed for IZABEL NUNEZ DO ([email or web address]) on 10/10/24 at 21:24. Electronically submitted by Mitchell Brdashaw ([email or web address]). IZABEL NUNEZ DO Oct 10, 2024 17:18
[2024-10-10 17:34] LABS: Basophils # (auto) 0 10 ^3/uL (0-0.2); Basophils % (auto) 0.4 % (0.0-2.0); Eosinophils # (auto) 0.1 10 ^3/uL (0-0.8); Eosinophils % (auto) 1.7 % (0.0-7.0); Hematocrit 42.4 % (36.0-46.0); Hemoglobin 14.1 g/dL (12.2-16.2); Lymphocytes # (auto) 1.6 10 ^3/uL (0.4-5.4); Lymphocytes % (auto) 27.7 % (10.0-50.0); Mean Corpuscular Hemoglobin 30.9 pg (28.0-32.0); Mean Corpuscular Hgb Conc. 33.2 g/dL (32.0-36.0); Mean Corpuscular Volume 93.1 fL (80.0-100.0); Monocytes # (auto) 0.6 10 ^3/uL (0-1.3); Monocytes % (auto) 11.3 % (0.0-12.0); Neutrophils # (auto) 3.3 10 ^3/uL (1.6-8.6); Neutrophils % (auto) 58.9 % (37.0-80.0); Nucleated Red Blood Cells % 0.1 %; Platelet Count (auto) 172 10^3/uL (140-450); Red Blood Cells 4.55 10^6/uL (4.0-5.20); Red Cell Distribution Width 14.3 % (11.8-14.3); White Blood Cell 5.6 10^3/uL (4.4-10.8)
[2024-10-10 17:50] LABS: Alanine Aminotransferase 23 U/L (7-40); Albumin 4.3 g/dL (3.2-4.8); Alkaline Phosphatase 83 U/L (46-116); Anion Gap 9 (5-15); Aspartate Aminotransferase 25 U/L (13-40); Blood Urea Nitrogen 17 mg/dL (9-23); CRP High Sensitivity 0.14 mg/dL (<1.0); Calcium 9.8 mg/dL (8.7-10.4); Carbon Dioxide 23 mmol/L (20-31); Glucose 103 mg/dL (74-106); Potassium 4.3 mmol/L (3.5-5.1); Sodium 145 mmol/L (136-145); Total Protein 6.2 g/dL (5.7-8.2)
[2024-10-10 17:51] LABS: Bilirubin, Total 0.4 mg/dL (0.2-1.0)
[2024-10-10 17:53] LABS: Chloride 113 mmol/L (98-107)
--- NOTE | 2024-10-10 18:11 | DVH ---
LEFT LOWER EXTREMITY VENOUS DUPLEX REASON FOR EXAMINATION: Left lower extremity pain and edema. COMPARISON: US BILAT LOWER DVT on DOS: 08/22/24, US BILAT LOWER DVT on DOS: 01/19/24 TECHNIQUE: Using real-time freeze-frame technique with a high-frequency transducer, multiple longitu dinal and transverse sections were obtained. Simultaneous color flow and spectral Doppler imaging wa s performed. FINDINGS: No intraluminal filling defect is identified. Normal venous compressibility is seen and t here is flow augmentation. Note that the left posterior tibial vein was not evaluated due to overlyin g bandages. Color flow Doppler imaging is unremarkable. IMPRESSION: NO EVIDENCE OF DEEP VENOUS THROMBOSIS.
[2024-10-10 18:23] LABS: Erythrocyte Sedimentation Rate 12 mm/hr (0-20)
--- NOTE | 2024-10-10 18:35 | DVH ---
LEFT LOWER EXTREMITY ARTERIAL DUPLEX ULTRASOUND STUDY: REASON FOR EXAM: pain post op TECHNIQUE: The full lengths of the arterial segments were evaluated with color-flow Doppler ultrasoun d. Suspected abnormalities were evaluated with felix scale ultrasound. [place] spectral Doppler waveforms, with velocity measurements were obtained. Spectral waveforms with velocity measurements w ere obtained 2 to 4 cm central to any areas of significant stenosis. Common femoral, superficial femo ral, popliteal, posterior tibial, anterior tibial, and dorsal pedal arteries were evaluated. FINDINGS: Left: There is mild diffuse atherosclerotic plaque throughout the left lower extremity. The common f emoral artery waveform is multiphasic with a brisk upstroke. The superficial femoral and popliteal ar teries are patent with multiphasic waveforms. The calf arteries are not visualized due to overlying b andaging. There is subcutaneous edema in the tissues of the popliteal fossa. IMPRESSION: Mild diffuse atherosclerosis. No evidence of arterial occlusion in the visualized arteries of the left lower extremity. The calf ar teries are not evaluated due to overlying bandaging. Edema in the subcutaneous tissues in the popliteal fossa.
[2024-10-10] MEDS ORDERED: CLINDAMYCIN 600MG IV 50 ML IV ONE (21:15)
[2024-10-10] MEDS ORDERED: DOCUSATE SOD 100 MG CAP PO PRN (22:30)
[2024-10-10] MEDS ORDERED: ONDANSETRON HCL 4 MG/2 ML VIAL IV PRN (22:30)
[2024-10-10] MEDS ORDERED: ACETAMINOPHEN 325 MG TAB PO PRN (22:30)
--- NOTE | 2024-10-10 23:29 | DVHHP2 ---
History of Present Illness Reason for Visit: Lower extremity pain, left History of Present Illness The patient is a 68-year-old female with multiple past medical history including AFib, Coronary artery disease, CHF, and hypertension who presented to [facility] ED with complaint of left lower extremity redness and pain. Patient reports recent left leg stent placement on 10/03/24 but states pain is not at the surgical site but above the knee which is worse on palpation.Patient was seen and evaluated in the ED, laboratory data shows WBC 5.6, platelets 172, sodium 145, potassium 4.3, BUN 17, creatinine 0.74, glucose 103, BNP 1 12.80, blood pressure 123/79, heart rate 52, temperature 98.2 F, O2 saturation 94% on oxygen. Extremity venous study shows no evidence of deep venous thrombosis; extremity atrial study revealing mild diffuse sclerosis, edema in the subcutaneous tissue in the popliteal fossa, no evidence of atrial occlusion in the visual mild arteries of the left lower extremity. Patient was started on IV antibiotic regimen clindamycin, please see medication orders section in the computer. On my assessment, patient denied chest pain, no headache, no dizziness, no shortness of breaths, no nausea, no vomiting, no fever, no chills. Patient was admitted for further evaluation and medical management. Past Medical History AFIB, Asthma, CAD, CHF, High Lipids, HTN, Lymphedema, Cerebral palsy, heart murmur, bradycardia Past Surgical History Bilateral leg stent placement. and bilateral foot surgery Family History Reviewed, noncontributory to the management of this case. Past Social History The patient lives at home, denies smoking, alcohol or illicit drugs abuse. Review of Systems Constitutional: Yes: Weakness; No: Fever, Chills, Sweats, Malaise, Other Eyes: No: Pain, Vision change, Conjunctivae inflammation, Eyelid inflammation, Other, Redness ENT: No: Ear pain, Ear discharge, Nose pain, Nose discharge, Nose congestion, Mouth pain, Mouth swelling, Throat pain, Throat swelling, Other Respiratory: No: Cough, Dry, Shortness of breath, SOB with excertion, Wheezing, Hemoptysis, Pleuritic Pain, Sputum, Wheezing, Other Cardiovascular: No: Chest Pain, Palpitations, Orthopnea, Paroxysmal Noc. Dyspnea, Edema, Lt Headedness, Other Gastrointestinal: No: Nausea, Vomiting, Abdominal Pain, Diarrhea, Constipation, Melena, Hematochezia, Other Genitourinary: No Dysuria, No Frequency, No Incontinence, No Hematuria, No Retention, No Other Musculoskeletal: other (Left lower extremity pain/swelling); No: neck pain, shoulder pain, arm pain, back pain, hand pain, leg pain, foot pain Skin: Other (Left lower extremity redness); No: Rash, Lesions, Jaundice, Bruising Neurological: No: Weakness, Numbness, Incoordination, Change in speech, Confusion, Seizures, Other Allergies: Coded Allergies: Sulfa Antibiotics (Verified Allergy, Unknown, 11/25/23) Amlodipine (Unverified Adverse Reaction, Unknown, 07/10/24) Peripheral edema Medications Current Medications Medications Dose Ordered Sig/Alfonso Route Start Time Stop Time Status Last Admin Dose Admin Clindamycin Phosphate 50 ml @ 50 mls/hr Q8HR IV 10/11/24 06:00 Aspirin 81 mg DAILY PO 10/11/24 10:00 Hydralazine HCl 10 mg Q6HP PRN IV 10/10/24 22:30 Atorvastatin Calcium 40 mg HS PO 10/11/24 22:00 Gabapentin 100 mg TID PO 10/11/24 06:00 Sodium Chloride 10 ml Q8HR IV 10/11/24 06:00 Acetaminophen/ Hydrocodone Bitart 1 tab Q4HP PRN PO 10/10/24 22:30 Ondansetron HCl 4 mg Q4HP PRN IV 10/10/24 22:30 Docusate Sodium 100 mg BIDPRN PRN PO 10/10/24 22:30 Acetaminophen 650 mg Q6HP PRN PO 10/10/24 22:30 Nitroglycerin 0.4 mg Q5MINP PRN SL 10/10/24 23:30 UNV Morphine Sulfate 2 mg Q30M PRN IV 10/10/24 23:30 UNV Exam Vital Signs Vital Signs Date Time Temp Pulse Resp B/P (MAP) Pulse Ox O2 Delivery O2 Flow Rate FiO2 10/10/24 23:00 97.6 59 16 149/73 (98) 98 97.6 General Appearance: Alert, Oriented X3, Cooperative, No acute distress HEENT: Atraumatic, PERRLA, EOMI, Mucous membr. moist/pink Respiratory: Normal air movement Cardiovascular: Regular rate, Normal S1, Normal S2, No murmurs Abdominal: Normal bowel sounds, Soft, No tenderness, No hepatospenomegaly, No masses Extremities: No clubbing, No cyanosis, Normal pulses, Other (Lower extremity swelling/tenderness) Skin: No rashes, No breakdown, No significant lesion Neuro: Normal speech, Normal tone, Sensation intact, Cranial nerves 3-12 NL, Reflexes 2+, Other (Generalized weakness) Psych/Mental Status: Mental status NL, Mood NL Labs/Xrays Labs Test 10/10/24 17:24 Range/Units White Blood Count 5.6 4.4-10.8 10^3/uL Red Blood Count 4.55 4.0-5.20 10^6/uL Hemoglobin 14.1 12.2-16.2 g/dL Hematocrit 42.4 36.0-46.0 % Mean Corpuscular Volume 93.1 80.0-100.0 fL Mean Corpuscular Hemoglobin 30.9 28.0-32.0 pg Mean Corpuscular Hemoglobin Concent 33.2 32.0-36.0 g/dL Red Cell Distribution Width 14.3 11.8-14.3 % Platelet Count 172 140-450 10^3/uL Mean Platelet Volume 11.6 H 6.9-10.8 fL Neutrophils (%) (Auto) 58.9 37.0-80.0 % Lymphocytes (%) (Auto) 27.7 10.0-50.0 % Monocytes (%) (Auto) 11.3 0.0-12.0 % Eosinophils (%) (Auto) 1.7 0.0-7.0 % Basophils (%) (Auto) 0.4 0.0-2.0 % Neutrophils # (Auto) 3.3 1.6-8.6 10 ^3/uL Lymphocytes # (Auto) 1.6 0.4-5.4 10 ^3/uL Monocytes # (Auto) 0.6 0-1.3 10 ^3/uL Eosinophils # (Auto) 0.1 0-0.8 10 ^3/uL Basophils # (Auto) 0 0-0.2 10 ^3/uL Nucleated Red Blood Cells 0.1 % Erythrocyte Sedimentation Rate 12 0-20 mm/hr Sodium Level 145 136-145 mmol/L Potassium Level 4.3 3.5-5.1 mmol/L Chloride Level 113 H 98-107 mmol/L Carbon Dioxide Level 23 20-31 mmol/L Anion Gap 9 5-15 Blood Urea Nitrogen 17 9-23 mg/dL Creatinine 0.74 0.550-1.02 mg/dL Glomerular Filtration Rate Calc 87 >90 mL/min BUN/Creatinine Ratio 23.0 H 10.0-20.0 Serum Glucose 103 74-106 mg/dL Lactic Acid Level 0.9 0.4-2.0 mmol/L Calcium Level 9.8 8.7-10.4 mg/dL Total Bilirubin 0.4 0.2-1.0 mg/dL Aspartate Amino Transferase (AST) 25 13-40 U/L Alanine Aminotransferase (ALT) 23 7-40 U/L Alkaline Phosphatase 83 46-116 U/L C-Reactive Protein High Sensitivity 0.14 <1.0 mg/dL B-Type Natriuretic Peptide 112.80 0-100 pg/mL Total Protein 6.2 5.7-8.2 g/dL Albumin 4.3 3.2-4.8 g/dL PATIENT: NASIR ROSARIO RACCT: [id number] UNIT: [id number] : 1955 LOC: ER ROOM / BED: / AGE / SEX: 68 / F ADM STATUS: REG ER SERVICE [id number] ORDERING PHYSICIAN: IZABEL NUNEZ DO PROCEDURE(s): LLEAD - Lt Low Ext Art Duplex REASON: pain post op ORDER NUMBER(s): [id number], ACCESSION NUMBER(s): [id number] LEFT LOWER EXTREMITY ARTERIAL DUPLEX ULTRASOUND STUDY: REASON FOR EXAM: pain post op TECHNIQUE: The full lengths of the arterial segments were evaluated with color- flow Doppler ultrasound. Suspected abnormalities were evaluated with felix scale ultrasound. Subacute Nurse spectral Doppler waveforms, with velocity measurements were obtained. Spectral waveforms with velocity measurements were obtained 2 to 4 cm central to any areas of significant stenosis. Common femoral, superficial femoral, popliteal, posterior tibial, anterior tibial, and dorsal pedal arteries were evaluated. FINDINGS: Left: There is mild diffuse atherosclerotic plaque throughout the left lower extremity. The common femoral artery waveform is multiphasic with a brisk upstroke. The superficial femoral and popliteal arteries are patent with multiphasic waveforms. The calf arteries are not visualized due to overlying bandaging. There is subcutaneous edema in the tissues of the popliteal fossa. IMPRESSION: Mild diffuse atherosclerosis. No evidence of arterial occlusion in the visualized arteries of the left lower extremity. The calf arteries are not evaluated due to overlying bandaging. Edema in the subcutaneous tissues in the popliteal fossa. ORDERING PHYSICIAN: IZABEL NUNEZ DO PROCEDURE(s): LLDVT - LT Lower DVT REASON: pain post op ORDER NUMBER(s): [id number], ACCESSION NUMBER(s): [id number] LEFT LOWER EXTREMITY VENOUS DUPLEX REASON FOR EXAMINATION: Left lower extremity pain and edema. COMPARISON: US BILAT LOWER DVT on DOS: 08/22/24, US BILAT LOWER DVT on DOS: 01/19/24 TECHNIQUE: Using real-time freeze-frame technique with a high-frequency transducer, multiple longitudinal and transverse sections were obtained. Si multaneous color flow and spectral Doppler imaging was performed. FINDINGS: No intraluminal filling defect is identified. Normal venous compressibility is seen and there is flow augmentation. Note that the left posterior tibial vein was not evaluated due to overlying bandages. Color flow Doppler imaging is unremarkable. IMPRESSION: NO EVIDENCE OF DEEP VENOUS THROMBOSIS. Assessment/Plan Assessment/Plan Lower extremity pain, left Cellulitis Generalized weakness Plan 1. Admit to telemetry unit 2. Breathing treatment 3. Pain control management 4. IV antibiotic management 5. Management of fluids and electrolytes 6. Consultation for hospitalist 7. Diagnostic test extremity venous study 8. DVT prophylaxis-on aspirin 9. Repeat labs CBC, CMP in a.m. 10. Home medication reviewed and reconciled 11. Continue with current medical management 12. Treatment plan discussed with patient and RN. Patient verbalized understanding. Plan discussed with: Patient, Other (RN) My Orders Orders - CHANCE YOUNG [facility] Procedure Category Date Status Time Clindamycin 600mg Iv PHA 10/11/24 In Process (Cleocin Iv) 06:00 Aspirin Tablet PHA 10/11/24 In Process 10:00 Hydralazine Injection PHA 10/10/24 In Process (Apresoline Inject 22:30 Atorvastatin (Lipitor) PHA 10/11/24 In Process 22:00 Gabapentin Capsule PHA 10/11/24 In Process (Neurontin Capsule) 06:00 Allergies REX 10/10/24 In Process 22:26 Code Status CODE 10/10/24 Transmitted 22:26 Sodium Chloride Lock PHA 10/11/24 In Process (Saline Lock Ns) 06:00 Oxygen Per Hour RT 10/10/24 Transmitted 22:26 Hydrocodone-Acet PHA 10/10/24 In Process 5/325mg Tab ([place] 22:30 Ondansetron Hcl PHA 10/10/24 In Process (Zofran) 22:30 Docusate Sodium PHA 10/10/24 In Process Capsule (Colace 22:30 Complete Blood Count LAB 10/11/24 Verified 04:00 Comprehensive LAB 10/11/24 Verified Metabolic Panel 04:00 Cardiac DIET 10/11/24 Transmitted Diet-2gna,Lofat,Lochol Breakfast Condition: Serious REX 10/10/24 In Process 22:26 Acetaminophen Tablet PHA 10/10/24 In Process (Tylenol Tablet) 22:30 Bedrest With Bathroom REX 10/10/24 In Process Privileg 22:26 Sequential REX 10/10/24 In Process Compression Device Admit ADMIT 10/10/24 Transmitted 23:27 Nitroglycerin PHA 10/10/24 Logged Sublingual (Ntrostat 23:30 Morphine Sulfate PHA 10/10/24 Logged Injection 23:30 Notify Of Changes REX 10/10/24 In Process From Base 23:27 Wheel Borer For REX 10/10/24 In Process 24 Hours 23:27 Emergency Dysrhythmia REX 10/10/24 In Process Protocol 23:27 Rhythm Strips Once REX 10/10/24 In Process Every Shift 23:27 Oxygen By Nasal RT 10/10/24 Transmitted Cannula 23:27 Problem List: (1) Lower extremity pain, left (2) Cellulitis (3) Generalized weakness Date of Service: Oct 10, 2024 Billing Provider: CHANCE YOUNG DNP Common Visit Codes: [id number] INP/OBS CARE (HIGH) CHANCE YOUNG DNP Oct 10, 2024 23:29
[2024-10-10] MEDS ORDERED: NITROGLYCERIN 0.4 MG SL TAB SL PRN (23:30)
[2024-10-10] MEDS ORDERED: MORPHINE SULFATE INJ 2 MG/ml SYRG IV PRN (23:30)
[2024-10-11] VITALS (8 sets, daily range): BP systolic 139–157; BP diastolic 44–96; PULSE 43–58; RESP 15–18; TEMP 97.2–98.3; O2SAT 97–99
[2024-10-11] MEDS: HYDROcodone-ACET 5/325MG TAB PO PRN (02:37)
[2024-10-11] MEDS: SODIUM CHLOR 0.9% PF (SALINE LOCK) 10ML VIAL/SYR IV SCH (04:46)
[2024-10-11] MEDS: GABAPENTIN 100 MG CAP PO SCH (04:46)
[2024-10-11] MEDS: CLINDAMYCIN 600MG IV 50 ML IV SCH (04:46)
[2024-10-11 06:10] LABS: Basophils # (auto) 0 10 ^3/uL (0-0.2); Basophils % (auto) 0.5 % (0.0-2.0); Eosinophils # (auto) 0.1 10 ^3/uL (0-0.8); Eosinophils % (auto) 1.7 % (0.0-7.0); Hematocrit 39.8 % (36.0-46.0); Hemoglobin 13.1 g/dL (12.2-16.2); Lymphocytes # (auto) 1.8 10 ^3/uL (0.4-5.4); Lymphocytes % (auto) 29.9 % (10.0-50.0); Mean Corpuscular Hgb Conc. 32.9 g/dL (32.0-36.0); Mean Corpuscular Volume 94.1 fL (80.0-100.0); Monocytes # (auto) 0.6 10 ^3/uL (0-1.3); Monocytes % (auto) 10.9 % (0.0-12.0); Neutrophils # (auto) 3.4 10 ^3/uL (1.6-8.6); Nucleated Red Blood Cells % 0.1 %; Platelet Count (auto) 155 10^3/uL (140-450); Red Blood Cells 4.23 10^6/uL (4.0-5.20); Red Cell Distribution Width 14.2 % (11.8-14.3); White Blood Cell 5.9 10^3/uL (4.4-10.8)
[2024-10-11 06:50] LABS: Alanine Aminotransferase 16 U/L (7-40); Alkaline Phosphatase 71 U/L (46-116); Anion Gap 10 (5-15); Aspartate Aminotransferase 20 U/L (13-40); Blood Urea Nitrogen 17 mg/dL (9-23); Calcium 9.3 mg/dL (8.7-10.4); Carbon Dioxide 25 mmol/L (20-31); Glucose 84 mg/dL (74-106); Potassium 3.9 mmol/L (3.5-5.1)
[2024-10-11 06:51] LABS: Bilirubin, Total 0.4 mg/dL (0.2-1.0)
[2024-10-11 07:06] LABS: Chloride 110 mmol/L (98-107); Sodium 145 mmol/L (136-145)
[2024-10-11] MEDS: ASPirin 81 mg TAB PO SCH (08:40)
[2024-10-11] MEDS: hydrALAZINE HCL 20 MG/ML VL IV PRN (08:41)
[2024-10-11] MEDS: ENOXAPARIN SOD 30 MG/0.3 ML SYRINGE SC ONE (12:09)
--- NOTE | 2024-10-11 15:24 | DVHPN2 ---
Subjective Complains of left leg pain Changes from previous H/P or p: Changes Eyes: No Pain, No Vision change, No Conjunctivae inflammation, No Eyelid inflammation, No Other, No Redness ENT: No Ear pain, No Ear discharge, No Nose pain, No Nose discharge, No Nose congestion, No Mouth pain, No Mouth swelling, No Throat pain, No Throat swelling, No Other Cardiovascular: No Chest Pain, No Palpitations, No Orthopnea, No Paroxysmal Noc. Dyspnea, No Edema, No Lt Headedness, No Other Respiratory: No Cough, No Dry, No Shortness of breath, No SOB with excertion, No Wheezing, No Hemoptysis, No Pleuritic Pain, No Sputum, No Other Gastrointestinal: No Nausea, No Vomiting, No Abdominal Pain, No Diarrhea, No Constipation, No Melena, No Hematochezia, No Other Genitourinary: No Dysuria, No Frequency, No Incontinence, No Hematuria, No Retention, No Other Musculoskeletal: other (Left lower extremity pain/swelling); No neck pain, No shoulder pain, No arm pain, No back pain, No hand pain, No leg pain, No foot pain Skin: No Rash, No Lesions, No Jaundice, No Bruising; Other (Left lower extremity redness) Objective Vitals Vital Signs Date Time Temp Pulse Resp B/P (MAP) Pulse Ox O2 Delivery O2 Flow Rate FiO2 10/11/24 12:58 97.2 47 16 139/78 (98) 97 97.2 10/11/24 08:00 Room Air* 0 21 Intake/Output Intake and Output 10/11/24 07:00 Intake Total 150 ml Balance 150 ml Intake Oral 150 ml General Appearance: Alert, Oriented X3, Cooperative Extremities: Other (Bilateral leg edema) Medications Current Medications Medications Dose Ordered Sig/Alfonso Route Start Time Stop Time Status Last Admin Dose Admin Clindamycin Phosphate 50 ml @ 50 mls/hr Q8HR IV 10/11/24 06:00 10/11/24 13:30 50 MLS/HR Aspirin 81 mg DAILY PO 10/11/24 10:00 10/11/24 08:40 81 MG Hydralazine HCl 10 mg Q6HP PRN IV 10/10/24 22:30 10/11/24 08:41 10 MG Atorvastatin Calcium 40 mg HS PO 10/11/24 22:00 Gabapentin 100 mg TID PO 10/11/24 06:00 6/6/25 13:29 100 MG Sodium Chloride 10 ml Q8HR IV 10/11/24 06:00 10/11/24 13:30 10 ML Acetaminophen/ Hydrocodone Bitart 1 tab Q4HP PRN PO 10/10/24 22:30 10/11/24 07:53 1 TAB Ondansetron HCl 4 mg Q4HP PRN IV 10/10/24 22:30 Docusate Sodium 100 mg BIDPRN PRN PO 10/10/24 22:30 Acetaminophen 650 mg Q6HP PRN PO 10/10/24 22:30 Nitroglycerin 0.4 mg Q5MINP PRN SL 10/10/24 23:30 Morphine Sulfate 2 mg Q30M PRN IV 10/10/24 23:30 Enoxaparin Sodium 30 mg DAILY SC 10/12/24 10:00 Laboratory Results Laboratory Tests 10/11/24 05:46 Chemistry Test 10/10/24 17:24 10/11/24 05:46 Albumin 4.3 g/dL (3.2-4.8) 4.0 g/dL (3.2-4.8) Calcium Level 9.8 mg/dL (8.7-10.4) 9.3 mg/dL (8.7-10.4) Total Protein 6.2 g/dL (5.7-8.2) 6.0 g/dL (5.7-8.2) Cardiac Markers Test 10/10/24 17:24 B-Type Natriuretic Peptide 112.80 pg/mL (0-100) LFT Test 10/10/24 17:24 10/11/24 05:46 Alanine Aminotransferase (ALT) 23 U/L (7-40) 16 U/L (7-40) Alkaline Phosphatase 83 U/L (46-116) 71 U/L (46-116) Aspartate Amino Transferase (AST) 25 U/L (13-40) 20 U/L (13-40) Total Bilirubin 0.4 mg/dL (0.2-1.0) 0.4 mg/dL (0.2-1.0) Assessment/Plan Assessment/Plan Left lower extremity cellulitis Chronic bilateral lymphedema Hypertension Chronic diastolic heart failure Obesity History of cerebral palsy Plan Continue IV clindamycin Continue the home medications Lovenox for DVT prophylaxis Monitor in the hospital 1 more day Plan discussed with: Patient My Orders Orders - RUSSELL CORONA MD Procedure Category Date Status Time Initiate Vte REX 10/11/24 In Process Prophylaxis 10:49 Enoxaparin Sodium PHA 10/12/24 In Process (Lovenox) 10:00 Date of Service: Oct 11, 2024 Billing Provider: RUSSELL CORONA MD Common Visit Codes: NOT BILLABLE RUSSELL CORONA MD Oct 11, 2024 15:24
[2024-10-11] MEDS: ATORVASTATIN 20 MG TAB PO SCH (21:27)
[2024-10-12] VITALS (7 sets, daily range): BP systolic 137–154; BP diastolic 51–79; PULSE 45–50; RESP 15–16; TEMP 97.3–97.9; O2SAT 97
[2024-10-12] MEDS: ENOXAPARIN SOD 30 MG/0.3 ML SYRINGE SC SCH (09:50)
[2024-10-12] MEDS ORDERED: NIFE1TAB36 PO (10:05)
[2024-10-12] MEDS ORDERED: NIFE1TAB30 PO (10:05)
[2024-10-12] MEDS ORDERED: AUG875T PO (10:06)
--- NOTE | 2024-10-12 14:18 | DVHDS2 ---
Discharge Summary Date of Admission Oct 10, 2024 at 23:27 Date of Discharge: Oct 12, 2024 Labs/Diagnostic Data: Laboratory Results Test 10/11/24 05:46 10/10/24 17:24 White Blood Count 5.9 10^3/uL (4.4-10.8) Red Blood Count 4.23 10^6/uL (4.0-5.20) Hemoglobin 13.1 g/dL (12.2-16.2) Hematocrit 39.8 % (36.0-46.0) Mean Corpuscular Volume 94.1 fL (80.0-100.0) Mean Corpuscular Hemoglobin 31.0 pg (28.0-32.0) Mean Corpuscular Hemoglobin Concent 32.9 g/dL (32.0-36.0) Red Cell Distribution Width 14.2 % (11.8-14.3) Platelet Count 155 10^3/uL (140-450) Mean Platelet Volume 11.7 fL (6.9-10.8) Neutrophils (%) (Auto) 57.0 % (37.0-80.0) Lymphocytes (%) (Auto) 29.9 % (10.0-50.0) Monocytes (%) (Auto) 10.9 % (0.0-12.0) Eosinophils (%) (Auto) 1.7 % (0.0-7.0) Basophils (%) (Auto) 0.5 % (0.0-2.0) Neutrophils # (Auto) 3.4 10 ^3/uL (1.6-8.6) Lymphocytes # (Auto) 1.8 10 ^3/uL (0.4-5.4) Monocytes # (Auto) 0.6 10 ^3/uL (0-1.3) Eosinophils # (Auto) 0.1 10 ^3/uL (0-0.8) Basophils # (Auto) 0 10 ^3/uL (0-0.2) Nucleated Red Blood Cells 0.1 % Sodium Level 145 mmol/L (136-145) Potassium Level 3.9 mmol/L (3.5-5.1) Chloride Level 110 mmol/L (98-107) Carbon Dioxide Level 25 mmol/L (20-31) Anion Gap 10 (5-15) Blood Urea Nitrogen 17 mg/dL (9-23) Creatinine 0.74 mg/dL (0.550-1.02) Glomerular Filtration Rate Calc 87 mL/min (>90) BUN/Creatinine Ratio 23.0 (10.0-20.0) Serum Glucose 84 mg/dL (74-106) Calcium Level 9.3 mg/dL (8.7-10.4) Total Bilirubin 0.4 mg/dL (0.2-1.0) Aspartate Amino Transferase (AST) 20 U/L (13-40) Alanine Aminotransferase (ALT) 16 U/L (7-40) Alkaline Phosphatase 71 U/L (46-116) Total Protein 6.0 g/dL (5.7-8.2) Albumin 4.0 g/dL (3.2-4.8) Erythrocyte Sedimentation Rate 12 mm/hr (0-20) Lactic Acid Level 0.9 mmol/L (0.4-2.0) C-Reactive Protein High Sensitivity 0.14 mg/dL (<1.0) B-Type Natriuretic Peptide 112.80 pg/mL (0-100) Other Laboratory Tests 10/11/24 05:46 Brief Hx & Hospital Course: Final diagnoses: Left lower extremity cellulitis Chronic bilateral lymphedema Hypertension Chronic diastolic heart failure Obesity History of cerebral palsy 70-year-old female who was admitted for swelling and pain in her left leg due to cellulitis She was given IV antibiotics here overnight Overnight she is doing better now and therefore she will be discharged home on Augmentin for 10 days and continue the other home medications and follow up with the primary care physician as soon as possible Condition at Discharge: Stable Final Diagnosis/Problems List Left lower extremity cellulitis Chronic bilateral lymphedema Hypertension Chronic diastolic heart failure Obesity History of cerebral palsy Discharge Disposition: Home SNF Discharge Will this Physician continue t: No Discharge Instruct/Medications Diet: Cardiac 2g Na,low cholest Activity: No Restrictions, As Tolerated Follow Up/Referral: PCP KAYLA Medications: Augmentin 875 mg id x 10 days Discharge Statement: "Patient was advised to return to the ER or call 911 if any headaches, dizziness, shortness of breath, chest pain, abdominal pain, bleeding, fevers, or worsening of medical condition. Patient was counseled about treatment plan, medications, possible side effects, patientverbalized understanding. All questions were answered to the best of my ability. This discharge took greater then 30 minutes in planning, reviewing documentation, counseling the patient, and discussing with other team members." ASSESSMENT ASSESSMENT Assessment Left lower extremity cellulitis Chronic bilateral lymphedema Hypertension Chronic diastolic heart failure Obesity History of cerebral palsy Date of Service: Oct 12, 2024 Billing Provider: RUSSELL CORONA MD Common Visit Codes: NOT BILLABLE RUSSELL CORONA MD Oct 12, 2024 14:18
== END 2024-10-12 11:52 | disposition home or self-care (01) | DRG 603 ==
LOC: EDBD 16:55 → ER 16:58 → TELE-WESTW 23:27 → OVERFLOW 23:27 → TELE-WESTW 10-11 02:10
PROVIDERS: ADMIT Internal Medicine Geriatric Medicine; ATTEND Internal Medicine Geriatric Medicine
DX: L03.116 Cellulitis of left lower limb (principal); I50.32 Chronic diastolic (congestive) heart failure; I89.0 Lymphedema, not elsewhere classified; E66.9 Obesity, unspecified; I25.10 Atherosclerotic heart disease of native coronary artery without angina pectoris; J45.909 Unspecified asthma, uncomplicated; R00.1 Bradycardia, unspecified; R01.1 Cardiac murmur, unspecified; G80.9 Cerebral palsy, unspecified; I11.0 Hypertensive heart disease with heart failure; I48.91 Unspecified atrial fibrillation; Z88.2 Allergy status to sulfonamides; Z88.1 Allergy status to other antibiotic agents; Z88.8 Allergy status to other drugs, medicaments and biological substances; Z79.899 Other long term (current) drug therapy; Z79.2 Long term (current) use of antibiotics; Z79.82 Long term (current) use of aspirin; Z68.31 Body mass index [BMI] 31.0-31.9, adult
CPT/HCPCS: 36415; 80053; 83605; 83880; 85025; 85652; 86141; 93926; 93971; G0378; J3490

== ENCOUNTER 2024-10-18 18:05 | Emergency (ER) | payer OTHER ==
[~2024-10-18] VITALS: Ht 177.8 cm; Wt 68.1 kg
[~2024-10-18 18:05] MED LIST changes: -ASPI-543 PO; +AUG875T PO; -DOXY1CAP57 PO; -GAB100C PO; -HYDR12.55 PO; -HYDR25TA87 PO; +NIFE1TAB30 PO; -NIFE1TAB31 PO
--- NOTE | 2024-10-18 18:26 | ED.PDOC ---
History of Present Illness HPI Comments 68-year-old female who came to ER via EMS for back pains. Patient was discharged here 6 days ago, diagnosed with 1. Left lower extremity cellulitis, 2. Chronic bilateral lymphedema, 3. Hypertension, 4. Chronic diastolic heart failure, 5. Obesity, 6. History of cerebral palsy. Sent home improved with Augmentin. Earlier, patient started complaining of lower back pains, and bilateral leg pains. States her left lower leg feels like it is burning from the cellulitis. Denies any fever. Chief Complaint: Back Pain Time Seen by MD: 18:26 Primary Care Provider: UNKNOWN Reviewed Notes: Information Services Tech Notes Allergies: Coded Allergies: Sulfa Antibiotics (Verified Allergy, Unknown, 11/25/23) Amlodipine (Unverified Adverse Reaction, Unknown, 07/10/24) Peripheral edema Home Meds Active Scripts Gabapentin (Once-Daily) (Gabapentin) 300 Mg Tab, 300 MG PO Q6HP PRN, #90 TAB 3 Refills Prov:JENNY ALAMO MD 10/18/24 Doxycycline (Monohydrate) (Doxycycline) 100 Mg Cap, 100 MG PO BID for 7 Days, #14 CAP Prov:JENNY ALAMO MD 10/18/24 Amoxicillin & Pot Clavulanate (AUGMENTIN TABLET) 875 Mg Tb, 875 MG PO BID for 10 Days, #20 TAB Prov:RUSSELL CORONA MD 10/12/24 Reported Medications Nifedipine (Nifedipine Er) 60 Mg Tab, 1 TAB PO DAILY, #30 TAB 5 Refills 10/12/24 Spironolactone (Spironolactone) 25 Mg Tab, 1 TAB PO DAILY for 90 Days, #90 09/06/24 Olmesartan Medoxomil (Olmesartan Medoxomil) 40 Mg Tab, 1 TAB PO DAILY@9 for 30 Days, #30 09/06/24 Tramadol Hcl (Tramadol Hcl) 50 Mg Tab, 1-2 TAB PO BID PRN for 30 Days, #120 08/01/24 Rosuvastatin Calcium (Rosuvastatin Calcium) 40 Mg Tab, 1 TAB PO DAILY for 90 Days, #90 06/10/24 Discontinued Reported Medications Nifedipine (Nifedipine ER) 30 Mg Tab, 30 MG PO, TAB 10/12/24 Nifedipine (Nifedipine Er) 30 Mg Tab, 1 TAB PO DAILY for 30 Days, #30 09/06/24 Discontinued Scripts Nifedipine (Nifedipine Er) 30 Mg Tab, 1 TAB PO BID PRN for 30 Days, #60 TAB 3 Refills Prov:RUSSELL CORONA MD 09/18/24 Information Source: Patient, Emergency Med Personnel Mode of Arrival: EMS Severity: Moderate Timing: Hours Duration: Intermittent Past Medical History PAST MEDICAL HISTORY: AFIB, Asthma, CAD, CHF, High Lipids, HTN Past Medical History (Other): Cerebral palsy Surgical History: Denies all surgeries CERTIFIED FINANCIAL PLANNER History: No Pertinent CERTIFIED FINANCIAL PLANNER History Family History Family History: Reviewed,noncontributory to illness, Unknown Social History Smoker: Non-Smoker Alcohol: Denies ETOH Use Drugs: Denies Drug Use Lives In: Home Constitutional: denies: chills, diaphoresis, fatigue, fever, malaise, sweats, weakness, others EENTM: denies: blurred vision, double vision, ear bleeding, ear discharge, ear drainage, ear pain, ear ringing, eye pain, eye redness, hearing loss, mouth pain, mouth swelling, nasal discharge, nose bleeding, nose congestion, nose pain, photophobia, tearing, throat pain, throat swelling, voice changes, others Respiratory: denies: cough, hemoptysis, orthopnea, SOB at rest, shortness of breath, SOB with excertion, stridor, wheezing, others Cardiovascular: denies: chest pain, dizzy spells, diaphoresis, Dyspnea on exertion, edema, irregular heart beat, left arm pain, lightheadedness, palpitations, PND, syncope, others Gastrointestinal: denies: abdomen distended, abdominal pain, blood streaked bowels, constipated, diarrhea, dysphagia, difficulty swallowing, hematemesis, melena, nausea, poor appetite, poor fluid intake, rectal bleeding, rectal pain, vomiting, others Genitourinary: denies: abnormal vagina bleeding, burning, dyspareunia, dysuria, flank pain, frequency, hematuria, incontinence, pain, , vagina disch arge, urgency, others Neurological: denies: dizziness, fainting, headache, left sided numbness, left sided weakness, numbness, paresthesia, pre-existing deficit, right sided numbness, right sided weakness, seizure, speech problems, tingling, tremors, weakness, others Musculoskeletal: reports: back pain, muscle pain (Bilateral leg pains); denies: gout, joint pain, joint swelling, muscle stiffness, neck pain, others Integumetry: denies: bruises, change in color, change in hair/nails, dryness, laceration, lesions, lumps, rash, wounds, others Allergic/Immunocompromised: denies: Difficulty Healing, Frequent Infections, Hives, Itching, others Hematologic/Lymphatic: denies: anemia, blood clots, easy bleeding, easy bruising, swollen glands, others Endocrine: denies: excessive hunger, excessive sweating, excessive thirst, excessive urination, flushing, intolerance to cold, intolerance to heat, unexplained weight gain, unexplained weight loss, others Psychiatric: denies: anxiety, bipolar disorder, depression, hopeless, panic disorder, schizophrenia, sleepless, suicidal, others Physical Exam General Appearance: No Apparent Distress, Normal HEENT: Normal ENT Inspection, Pharynx Normal, TMs Normal Neck: Full Range of Motion, Non-Tender, Normal, Normal Inspection Respiratory: Chest Non-Tender, Lungs Clear, No Accessory Muscle Use, No Respiratory Distress, Normal Breath Sounds Cardiovascular: No Edema, No JVD, No Murmur, No Gallop, Normal Peripheral Pulses, Regular Rate/Rhythm Breast Exam: Deferred Gastrointestinal: No Organomegaly, Non Tender, No Pulsatile Mass, Normal Bowel Sounds, Soft Genitalia: Deferred Pelvic: Deferred Rectal: Deferred Extremities: No calf tenderness, Normal capillary refill, Normal inspection, Normal range of motion, Non-tender, No pedal edema Musculoskeletal : Apperance: Normal Neurologic: Alert, dope mixer II-XII nml as Tested, No Motor Deficits, Normal Affect, Normal Mood, No Sensory Deficits Cerebellar Function: Normal Reflexes: Normal Skin: Dry, Normal Color, Warm Lymphatic: No Adenopathy Was a procedure done? Was a procedure done?: No Differential Dx Considerations may include: Anemia, electrolyte imbalance, cellulitis, lymphedema, sciatica, musculoskeletal pain X-Ray, Labs, Meds, VS Vital Signs Date Time Temp Pulse Resp B/P (MAP) Pulse Ox O2 Delivery O2 Flow Rate FiO2 10/18/24 20:22 57 18 93 Room Air 10/18/24 20:09 98.7 57 18 156/51 (86) 93 98.7 10/18/24 18:05 98.0 65 22 188/75 (112) 98 98.0 Lab Test 10/18/24 18:53 Range/Units White Blood Count 7.4 4.4-10.8 10^3/uL Red Blood Count 4.68 4.0-5.20 10^6/uL Hemoglobin 14.4 12.2-16.2 g/dL Hematocrit 43.1 36.0-46.0 % Mean Corpuscular Volume 92.0 80.0-100.0 fL Mean Corpuscular Hemoglobin 30.8 28.0-32.0 pg Mean Corpuscular Hemoglobin Concent 33.4 32.0-36.0 g/dL Red Cell Distribution Width 14.4 H 11.8-14.3 % Platelet Count 186 140-450 10^3/uL Mean Platelet Volume 11.7 H 6.9-10.8 fL Neutrophils (%) (Auto) 66.8 37.0-80.0 % Lymphocytes (%) (Auto) 23.4 10.0-50.0 % Monocytes (%) (Auto) 8.1 0.0-12.0 % Eosinophils (%) (Auto) 0.9 0.0-7.0 % Basophils (%) (Auto) 0.8 0.0-2.0 % Neutrophils # (Auto) 4.9 1.6-8.6 10 ^3/uL Lymphocytes # (Auto) 1.7 0.4-5.4 10 ^3/uL Monocytes # (Auto) 0.6 0-1.3 10 ^3/uL Eosinophils # (Auto) 0.1 0-0.8 10 ^3/uL Basophils # (Auto) 0.1 0-0.2 10 ^3/uL Nucleated Red Blood Cells 0.1 % Prothrombin Time 10.9 9.3-11.8 sec Prothrombin Time INR 1.03 0.9-1.15 Activated Partial Thromboplast Time 26.1 24.5-34.5 SEC Sodium Level 144 136-145 mmol/L Potassium Level 3.8 3.5-5.1 mmol/L Chloride Level 109 H 98-107 mmol/L Carbon Dioxide Level 23 20-31 mmol/L Anion Gap 12 5-15 Blood Urea Nitrogen 19 9-23 mg/dL Creatinine 0.91 0.550-1.02 mg/dL Glomerular Filtration Rate Calc 68 >90 mL/min BUN/Creatinine Ratio 20.9 H 10.0-20.0 Serum Glucose 97 74-106 mg/dL Lactic Acid Level 1.2 0.4-2.0 mmol/L Calcium Level 9.4 8.7-10.4 mg/dL Total Bilirubin 0.4 0.2-1.0 mg/dL Aspartate Amino Transferase (AST) 44 H <34 U/L Alanine Aminotransferase (ALT) 34 7-40 U/L Alkaline Phosphatase 91 46-116 U/L Total Protein 6.7 5.7-8.2 g/dL Albumin 4.4 3.2-4.8 g/dL Time of 1ST Reevaluation: 18:23 Reevaluation 1ST: Unchanged Patient Education/Counseling: Diagnosis, Treatment Family Education/Counseling: No Family Present Sepsis Sepsis Reasesment Focused Exam Orders: Laboratory Tests 10/18/24 18:53: Lactic Acid Level 1.2 Departure 1 Departure Time of Disposition: 20:00 Impression: Primary Impression: Sciatic nerve pain Additional Impressions: Pedal edema Peripheral edema Venous stasis Disposition: HOME / SELF CARE / HOMELESS Condition: Stable e-Prescriptions Gabapentin (Once-Daily) (Gabapentin) 300 Mg Tab 300 MG PO Q6HP PRN, #90 TAB 3 Refills Prov: JNENY ALAMO MD 10/18/24 Doxycycline (Monohydrate) (Doxycycline) 100 Mg Cap 100 MG PO BID for 7 Days, #14 CAP Prov: JENNY ALAMO MD 10/18/24 Discharged With: Self Critical Care Note Critical Care Time?: No Stability Stability form required: No Heart Score Heart Score: Heart Score Response (Comments) Value History N/A 0 EKG N/A 0 Age N/A 0 Risk Factors N/A 0 Troponin N/A 0 Total 0 I personally scribed for JENNY ALAMO MD ([email or web address]) on 10/18/24 at 18:26. Electronically submitted by Matt Benites ([email or web address]). JENNY ALAMO MD Oct 18, 2024 18:26
[2024-10-18 19:23] LABS: Basophils # (auto) 0.1 10 ^3/uL (0-0.2); Basophils % (auto) 0.8 % (0.0-2.0); Eosinophils # (auto) 0.1 10 ^3/uL (0-0.8); Eosinophils % (auto) 0.9 % (0.0-7.0); Hematocrit 43.1 % (36.0-46.0); Hemoglobin 14.4 g/dL (12.2-16.2); Lymphocytes # (auto) 1.7 10 ^3/uL (0.4-5.4); Lymphocytes % (auto) 23.4 % (10.0-50.0); Mean Corpuscular Hemoglobin 30.8 pg (28.0-32.0); Mean Corpuscular Hgb Conc. 33.4 g/dL (32.0-36.0); Monocytes # (auto) 0.6 10 ^3/uL (0-1.3); Monocytes % (auto) 8.1 % (0.0-12.0); Neutrophils # (auto) 4.9 10 ^3/uL (1.6-8.6); Neutrophils % (auto) 66.8 % (37.0-80.0); Nucleated Red Blood Cells % 0.1 %; Platelet Count (auto) 186 10^3/uL (140-450); Red Blood Cells 4.68 10^6/uL (4.0-5.20); Red Cell Distribution Width 14.4 % (11.8-14.3); White Blood Cell 7.4 10^3/uL (4.4-10.8)
[2024-10-18 19:34] LABS: Alanine Aminotransferase 34 U/L (7-40); Albumin 4.4 g/dL (3.2-4.8); Alkaline Phosphatase 91 U/L (46-116); Anion Gap 12 (5-15); BUN/Creatinine Ratio 20.9 (10.0-20.0); Blood Urea Nitrogen 19 mg/dL (9-23); Calcium 9.4 mg/dL (8.7-10.4); Carbon Dioxide 23 mmol/L (20-31); Glucose 97 mg/dL (74-106); Potassium 3.8 mmol/L (3.5-5.1); Sodium 144 mmol/L (136-145); Total Protein 6.7 g/dL (5.7-8.2)
[2024-10-18 19:35] LABS: Bilirubin, Total 0.4 mg/dL (0.2-1.0)
[2024-10-18 19:37] LABS: Aspartate Aminotransferase 44 U/L (<34); Chloride 109 mmol/L (98-107); INR 1.03 (0.9-1.15); Partial Thromboplastin Time 26.1 SEC (24.5-34.5); Prothrombin Time 10.9 sec (9.3-11.8)
[2024-10-18] MEDS ORDERED: DOXY100C79 PO (20:04)
[2024-10-18] MEDS ORDERED: GABA300T4 PO (20:04)
[2024-10-18 20:09] VITALS: BP 156/51; TEMP 98.7
[2024-10-18 20:22] VITALS: PULSE 57; RESP 18; O2SAT 93
== END 2024-10-18 20:23 | disposition home or self-care (01) ==
LOC: ER 18:05 → EDBD 18:05 → EDUNIT# 18:05 → ER 20:23
DX: M54.30 Sciatica, unspecified side (principal); R60.0 Localized edema; M79.604 Pain in right leg; M79.605 Pain in left leg; I87.8 Other specified disorders of veins; I11.0 Hypertensive heart disease with heart failure; I50.9 Heart failure, unspecified; I25.10 Atherosclerotic heart disease of native coronary artery without angina pectoris; I48.91 Unspecified atrial fibrillation; G80.9 Cerebral palsy, unspecified; J45.909 Unspecified asthma, uncomplicated; Z79.899 Other long term (current) drug therapy; Z88.2 Allergy status to sulfonamides; Z88.8 Allergy status to other drugs, medicaments and biological substances
CPT/HCPCS: 36415; 80053; 83605; 85025; 85610; 85730; 87040

== ENCOUNTER 2024-10-25 20:20 | Emergency (ER) | payer OTHER ==
[~2024-10-25] VITALS: Ht 172.7 cm; Wt 75.0 kg
[~2024-10-25 20:20] MED LIST changes: +DOXY100C79 PO; +GABA300T4 PO
--- NOTE | 2024-10-25 20:32 | ED.PDOC ---
Back pain HPI HPI Comments 68 year old female presents to the ED via EMS with a chief complaint of back pain onset 2 days. Patient has chronic back and neck pain, noticed pain worsen past 2 days, is not able to sleep due to pain. PMHx CHF, CAD, a-fib, HTN, DM, asthma, arthritis, HLD. Denies any recent fall, trauma, injury, nausea, vomiting, diarrhea, headache, dizziness. No other symptoms or modifying factors present at this time. Time Seen by MD: 20:25 Primary Care Provider: UNKNOWN Reviewed Notes: Nurses Notes, Carrier Operator Notes, Medications, Allergies Allergies: Coded Allergies: Sulfa Antibiotics (Verified Allergy, Unknown, 11/25/23) Amlodipine (Unverified Adverse Reaction, Unknown, 07/10/24) Peripheral edema Home Meds Active Scripts Gabapentin (Once-Daily) (Gabapentin) 300 Mg Tab, 300 MG PO Q6HP PRN, #90 TAB 3 Refills Prov:JENNY ALAMO MD 10/18/24 Doxycycline (Monohydrate) (Doxycycline) 100 Mg Cap, 100 MG PO BID for 7 Days, #14 CAP Prov:JENNY ALAMO MD 10/18/24 Amoxicillin & Pot Clavulanate (AUGMENTIN TABLET) 875 Mg Tb, 875 MG PO BID for 10 Days, #20 TAB Prov:RUSSELL CORONA MD 10/12/24 Reported Medications Nifedipine (Nifedipine Er) 60 Mg Tab, 1 TAB PO DAILY, #30 TAB 5 Refills 10/12/24 Spironolactone (Spironolactone) 25 Mg Tab, 1 TAB PO DAILY for 90 Days, #90 09/06/24 Olmesartan Medoxomil (Olmesartan Medoxomil) 40 Mg Tab, 1 TAB PO DAILY@9 for 30 Days, #30 09/06/24 Tramadol Hcl (Tramadol Hcl) 50 Mg Tab, 1-2 TAB PO BID PRN for 30 Days, #120 08/01/24 Rosuvastatin Calcium (Rosuvastatin Calcium) 40 Mg Tab, 1 TAB PO DAILY for 90 Days, #90 06/10/24 Information Source: Patient, Emergency Med Personnel Mode of Arrival: EMS Timing: Days Duration: Since onset Location of Back pain: (B) Cervical, (B) Lumbar Severity: Severe Prehospital treatment: None Quality: Sharp, Stabbing Onset: Spontaneous History of: Chronic Back Pain Past Medical History PAST MEDICAL HISTORY: AFIB, Asthma, CAD, CHF, High Lipids, HTN Surgical History: Denies all surgeries SURVEY WORKERS SUPERVISOR History: No Pertinent SURVEY WORKERS SUPERVISOR History Family History Family History: Reviewed,noncontributory to illness, Unknown Social History Smoker: Non-Smoker Alcohol: Denies ETOH Use Drugs: Denies Drug Use Lives In: Home Constitutional: denies: chills, diaphoresis, fatigue, fever, malaise, sweats, weakness, others EENTM: denies: blurred vision, double vision, ear bleeding, ear discharge, ear drainage, ear pain, ear ringing, eye pain, eye redness, hearing loss, mouth pain, mouth swelling, nasal discharge, nose bleeding, nose congestion, nose pain, photophobia, tearing, throat pain, throat swelling, voice changes, others Respiratory: denies: cough, hemoptysis, orthopnea, SOB at rest, shortness of breath, SOB with excertion, stridor, wheezing, others Cardiovascular: denies: chest pain, dizzy spells, diaphoresis, Dyspnea on exertion, edema, irregular heart beat, left arm pain, lightheadedness, palpitations, PND, syncope, others Gastrointestinal: denies: abdomen distended, abdominal pain, blood streaked bowels, constipated, diarrhea, dysphagia, difficulty swallowing, hematemesis, melena, nausea, poor appetite, poor fluid intake, rectal bleeding, rectal pain, vomiting, others Genitourinary: denies: abnormal vagina bleeding, burning, dyspareunia, dysuria, flank pain, frequency, hematuria, incontinence, pain, , vagina discharge, urgency, others Neurological: denies: dizziness, fainting, headache, left sided numbness, left sided weakness, numbness, paresthesia, pre-existing deficit, right sided numbness, right sided weakness, seizure, speech problems, tingling, tremors, weakness, others Musculoskeletal: reports: back pain, neck pain; denies: gout, joint pain, joint swelling, muscle pain, muscle stiffness, others Integumetry: denies: bruises, change in color, change in hair/nails, dryness, laceration, lesions, lumps, rash, wounds, others Allergic/Immunocompromised: denies: Difficulty Healing, Frequent Infections, Hives, Itching, others Hematologic/Lymphatic: denies: anemia, blood clots, easy bleeding, easy bruising, swollen glands, others Endocrine: denies: excessive hunger, excessive sweating, excessive thirst, excessive urination, flushing, intolerance to cold, intolerance to heat, unexplained weight gain, unexplained weight loss, others Psychiatric: denies: anxiety, bipolar disorder, depression, hopeless, panic disorder, schizophrenia, sleepless, suicidal, others All Other Systems: Reviewed and Negative Physical Exam General Appearance: Moderate Distress (Moderate distress due to low back pain and neck pain concerns.), Normal HEENT: Normal ENT Inspection, Pharynx Normal, TMs Normal Neck: Other (Diffuse bilateral posterior tenderness to palpation throughout the cervical spine. No definitive step-offs noted. [id number] reduced range of motion.) Respiratory: Chest Non-Tender, Lungs Clear, No Accessory Muscle Use, No Respiratory Distress, Normal Breath Sounds Cardiovascular: No Edema, No JVD, No Murmur, No Gallop, Normal Peripheral Pulses, Regular Rate/Rhythm Breast Exam: Deferred Gastrointestinal: No Organomegaly, Non Tender, No Pulsatile Mass, Normal Bowel Sounds, Soft Genitalia: Deferred Pelvic: Deferred Rectal: Deferred Extremities: No calf tenderness, Normal capillary refill, Non-tender, No pedal edema Musculoskeletal : Location: Bilateral Extremity Location: Back (Diffuse bilateral lumbar tenderness to palpation throughout. No step-offs noted. [id number]-[id number] hypertonicity appreciated.) Apperance: Normal Neurologic: Alert, No Motor Deficits, Normal Affect, Normal Mood, No Sensory Deficits Cerebellar Function: Normal Reflexes: Normal Skin: Dry, Normal Color, Warm Lymphatic: No Adenopathy Was a procedure done? Was a procedure done?: No Back Pain Differential Dx Differential Diagnosis: Other (Urinary tract infection, chronic neck pain, chronic back pain) X-Ray, Labs, Meds, VS Vital Signs Date Time Temp Pulse Resp B/P (MAP) Pulse Ox O2 Delivery O2 Flow Rate FiO2 10/25/24 23:15 97.9 58 20 138/59 (85) 97 97.9 10/25/24 20:45 65 18 140/67 10/25/24 20:28 98.4 65 16 140/67 (91) 98 98.4 Lab Test 10/25/24 20:37 Range/Units Urine Color Yellow Yellow Urine Clarity Turbid H Clear Urine pH 5.5 5.0-9.0 Urine Specific [place] 1.035 1.001-1.035 Urine Protein 1+ H Negative Urine Ketones 1+ H Negative Urine Blood Negative Negative /uL Urine Nitrite Negative Negative Urine Bilirubin 1+ H Negative Urine Urobilinogen 4 H Negative mg/dL Urine Leukocyte Esterase 1+ Negative /uL Urine RBC 4 0 - 4 /hpf Urine Microscopic WBC 4 0-5 /HPF Urine Squamous Epithelial Cells Few <5 /hpf Urine Bacteria None seen None Seen /hpf Urine Hyaline Casts Many 0 - 2 /lpf Urine Mucus Moderate None Seen Urine Yeast (Budding) Occasional None Seen /hpf Urine Glucose Trace Normal mg/dL Current Medications Medications (Trade) Dose Ordered Sig/Alfonso Route Start Time Stop Time Status Last Admin Hydromorphone HCl (Dilaudid Injection) 0.5 mg ONCE ONCE IM 10/25/24 20:30 10/25/24 20:31 DC 10/25/24 20:45 Ondansetron HCl (Zofran Po) 4 mg ONCE ONCE PO 10/25/24 20:30 10/25/24 20:31 DC 10/25/24 20:45 X-Ray, Labs, Meds, VS Comment All studies performed the ED were evaluated by me personally. Patient's urinalysis confirmed a UTI. Due to the patient's chronicity and lack of any recent trauma, no additional imaging studies were performed. Patient has had MRIs of the lumbar spine and cervical spine and therefore, patient will need to follow up with the primary care provider for long-term management. Advised patient utilize antibiotics as directed as well as pain medication as needed. Time of 1ST Reevaluation: 23:30 Reevaluation 1ST: Improved Consultation: PCP Patient Education/Counseling: Diagnosis, Treatment, Prognosis Family Education/Counseling: Diagnosis, Treatment, No Family Present SEPSIS Sepsis Screen Recent Procedure: No On Antibiotic Therapy: No Respiratory Rate >20: No Heart Rate >90: No Temp<36 C (96.8 F) or >38.3 C: No SBP <90 or MAP <65 mmHG: No New Acute Mental Status Change: No Is the patient on CPAP, BIPAP,: No IV fluid challenge completed?: No Physician Orders Sulfamethoxazole W/Trimeth Tab (Bactrim (10/25/24 23:30) Vital Signs Date Time Temp Pulse Resp B/P (MAP) Pulse Ox O2 Delivery O2 Flow Rate FiO2 10/25/24 23:15 97.9 58 20 138/59 (85) 97 97.9 10/25/24 20:45 65 18 140/67 10/25/24 20:28 98.4 65 16 140/67 (91) 98 98.4 Medications Medications Dose Ordered Sig/Alfonso Route Start Time Stop Time Status Last Admin Dose Admin Hydromorphone HCl 0.5 mg ONCE ONCE IM 10/25/24 20:30 10/25/24 20:31 DC 10/25/24 20:45 Ondansetron HCl 4 mg ONCE ONCE PO 10/25/24 20:30 10/25/24 20:31 DC 10/25/24 20:45 Departure 1 Departure Time of Disposition: 23:31 Impression: Primary Impression: UTI (urinary tract infection) Additional Impression: Acute exacerbation of chronic low back pain Disposition: HOME / SELF CARE / HOMELESS Condition: Stable Additional Instructions: Advised patient utilize antibiotics as directed until completion as well as pain medication as needed. Patient has been advised to follow up with the primary care provider for continued long-term management of chronic back and neck pain concerns. e-Prescriptions Cephalexin (KEFLEX CAPSULE) 250 Mg Cp 1 CAP PO QID for 7 Days, #28 CAP Prov: ROSEANN LÓPEZ PAC 10/25/24 Hydrocodone-Acetaminophen (Hydrocodone Bitartrate/AC 10-325 mg) 1 Tab Tab 1 TAB PO Q8HP PRN, #15 TAB Prov: ROSEANN LÓPEZ PAC 10/25/24 Ibuprofen (Ibuprofen) 600 Mg Tab 1 TAB PO Q6HP PRN, #30 TAB Prov: ROSEANN LÓPEZ PAC 10/25/24 Discharged With: Self, Spouse Critical Care Note Critical Care Time?: No Stability Stability form required: No Heart Score Heart Score: Heart Score Response (Comments) Value History N/A 0 EKG N/A 0 Age N/A 0 Risk Factors N/A 0 Troponin N/A 0 Total 0 I personally scribed for ROSEANN LÓPEZ PAC ([email or web address]) on 10/25/24 at 20:32. Electronically submitted by Zunilda Cheatham ([email or web address]). ROSEANN LÓPEZ PAC Oct 25, 2024 20:32
[2024-10-25] MEDS: ONDANSETRON ODT 4 MG TAB PO ONE (20:45)
[2024-10-25] MEDS: HYDROmorphone HCL 2 MG/ML VL/or syr IM ONE (20:45)
[2024-10-25 22:48] LABS: Urine Bacteria None Seen /hpf (None Seen)
[2024-10-25 22:56] LABS: Urine Blood Negative /uL (Negative); Urine Budding Yeast OCCASIONAL /hpf (None Seen); Urine Clarity Turbid (Clear); Urine Color Yellow (Yellow); Urine Hyaline Cast MANY /lpf (0 - 2); Urine Mucus MODERATE (None Seen); Urine Protein, UAD 1+ (Negative); Urine Specific Gravity 1.035 (1.001-1.035); Urine Squamous Epithelial Cell FEW /hpf (<5); Urine Urobilinogen 4 mg/dL (Negative); Urine WBC 4 /HPF (0-5); Urine pH 5.5 (5.0-9.0)
[2024-10-25] MEDS ORDERED: SULFAMETHOX W/TRIMETH(800/160MG) DS TAB PO ONE (23:30)
[2024-10-25] MEDS ORDERED: CEPH250C PO (23:32)
[2024-10-25] MEDS ORDERED: IBUP-1454 PO (23:32)
[2024-10-25] MEDS ORDERED: HYDR-4798 PO (23:32)
[2024-10-25] MEDS: CEPHALEXIN 250 MG CAP PO ONE (23:45)
[2024-10-26] MEDS: HYDROcodone-ACET 10/325MG TAB PO ONE (04:45)
[2024-10-26] MEDS: IBUPROFEN 600 MG TAB PO ONE (05:22)
[2024-10-26 12:46] VITALS: BP 146/70; PULSE 56; RESP 16; TEMP 98.2; O2SAT 96
== END 2024-10-26 12:48 | disposition home or self-care (01) ==
LOC: ER 20:20 → EDBD 20:20 → ER 10-26 12:48
DX: N39.0 Urinary tract infection, site not specified (principal); G89.29 Other chronic pain; E78.5 Hyperlipidemia, unspecified; I11.0 Hypertensive heart disease with heart failure; I50.9 Heart failure, unspecified; I25.10 Atherosclerotic heart disease of native coronary artery without angina pectoris; I48.91 Unspecified atrial fibrillation; J45.909 Unspecified asthma, uncomplicated; E11.9 Type 2 diabetes mellitus without complications; Z79.899 Other long term (current) drug therapy; Z88.2 Allergy status to sulfonamides; Z88.8 Allergy status to other drugs, medicaments and biological substances
CPT/HCPCS: 81001; 96372; 99285; J1171; Q0162

== ENCOUNTER 2024-11-15 21:35 | Inpatient (IN) | payer OTHER ==
[~2024-11-15] VITALS: Ht 167.6 cm; Wt 111.4 kg
[~2024-11-15 21:35] MED LIST changes: +CEPH250C PO; +HYDR-4798 PO; +IBUP-1454 PO
--- NOTE | 2024-11-15 22:21 | ED.PDOC ---
Musculoskeletal HPI Comments 69-year-old female with a history of hypertension, dyslipidemia, asthma, CHF, peripheral vascular disease and lymphedema brought in by EMS from home complaining of bilateral lower extremity pain and worsening swelling for the past 2 hours. Patient states she underwent bilateral lower extremity arterial stent placement at an outpatient surgical center. She had 3 stents inserted in the right lower extremity and 1 in the left lower extremity. She also notes a wound on the lateral aspect of her right lower extremity. She states that she has had increased swelling since the procedure, which is causing severe pressure-like discomfort. She denies any shortness of breath, fever or discoloration of her lower extremities. Chief Complaint: Lower Extremity Time Seen by MD: 22:20 Primary Care Provider: Luis Felipe Avilez Reviewed Notes: Wire Threader Notes Allergies: Coded Allergies: Sulfa Antibiotics (Verified Allergy, Unknown, 11/25/23) Amlodipine (Unverified Adverse Reaction, Unknown, 07/10/24) Peripheral edema Home Meds Active Scripts Cephalexin (KEFLEX CAPSULE) 250 Mg Cp, 1 CAP PO QID for 7 Days, #28 CAP Prov:ROSEANN LÓPEZ PAC 10/25/24 Hydrocodone-Acetaminophen (Hydrocodone Bitartrate/AC 10-325 mg) 1 Tab Tab, 1 TAB PO Q8HP PRN, #15 TAB Prov:ROSEANN LÓPEZ PAC 10/25/24 Ibuprofen (Ibuprofen) 600 Mg Tab, 1 TAB PO Q6HP PRN, #30 TAB Prov:ROSEANN LÓPEZ PAC 10/25/24 Gabapentin (Once-Daily) (Gabapentin) 300 Mg Tab, 300 MG PO Q6HP PRN, #90 TAB 3 Refills Prov:JENNY ALAMO MD 10/18/24 Doxycycline (Monohydrate) (Doxycycline) 100 Mg Cap, 100 MG PO BID for 7 Days, #14 CAP Prov:JENNY ALAMO MD 10/18/24 Amoxicillin & Pot Clavulanate (AUGMENTIN TABLET) 875 Mg Tb, 875 MG PO BID for 10 Days, #20 TAB Prov:RUSSELL CORONA MD 10/12/24 Reported Medications Nifedipine (Nifedipine Er) 60 Mg Tab, 1 TAB PO DAILY, #30 TAB 5 Refills 10/12/24 Spironolactone (Spironolactone) 25 Mg Tab, 1 TAB PO DAILY for 90 Days, #90 09/06/24 Olmesartan Medoxomil (Olmesartan Medoxomil) 40 Mg Tab, 1 TAB PO DAILY@9 for 30 Days, #30 09/06/24 Tramadol Hcl (Tramadol Hcl) 50 Mg Tab, 1-2 TAB PO BID PRN for 30 Days, #120 08/01/24 Rosuvastatin Calcium (Rosuvastatin Calcium) 40 Mg Tab, 1 TAB PO DAILY for 90 Days, #90 06/10/24 Information Source: Patient, Emergency Med Personnel Mode of Arrival: EMS Location: Bilateral Extremity Location: Leg Timing: Hours Prehospital treatment: None Severity: Moderate Able to Move Extremity: Yes Bear Weight: Limited Pain: Moderate Hand Dominance: Right Mechanism: Spontaneous Circumstances: Spontaneous Onset of Symptoms: Spontaneous Symptoms: Swelling, Pain Associated signs and symptoms: Leg pain Past Medical History PAST MEDICAL HISTORY: AFIB, Asthma, CAD, CHF, High Lipids, HTN Past Medical History (Other): Lymphedema Surgical History: Denies all surgeries Surgical History (Other): Arterial stents both legs, bilateral foot surgery SURVEY DIRECTOR History: No Pertinent SURVEY DIRECTOR History Family History Family History: Reviewed,noncontributory to illness, Unknown Social History Smoker: Non-Smoker Alcohol: Denies ETOH Use Drugs: Denies Drug Use Lives In: Home Constitutional: denies: chills, diaphoresis, fatigue, fever, malaise, sweats, weakness, others EENTM: denies: blurred vision, double vision, ear bleeding, ear discharge, ear drainage, ear pain, ear ringing, eye pain, eye redness, hearing loss, mouth pain, mouth swelling, nasal discharge, nose bleeding, nose congestion, nose pain, photophobia, tearing, throat pain, throat swelling, voice changes, others Respiratory: denies: cough, hemoptysis, orthopnea, SOB at rest, shortness of breath, SOB with excertion, stridor, wheezing, others Cardiovascular: denies: chest pain, dizzy spells, diaphoresis, Dyspnea on exertion, edema, irregular heart beat, left arm pain, lightheadedness, palpitations, PND, syncope, others Gastrointestinal: denies: abdomen distended, abdominal pain, blood streaked bowels, constipated, diarrhea, dysphagia, difficulty swallowing, hematemesis, melena, nausea, poor appetite, poor fluid intake, rectal bleeding, rectal pain, vomiting, others Genitourinary: denies: abnormal vagina bleeding, burning, dyspareunia, dysuria, flank pain, frequency, hematuria, incontinence, pain, , vagina discharge, urgency, others Neurological: denies: dizziness, fainting, headache, left sided numbness, left sided weakness, numbness, paresthesia, pre-existing deficit, right sided numbness, right sided weakness, seizure, speech problems, tingling, tremors, weakness, others Musculoskeletal: reports: others (bilateral leg pain and swelling); denies: back pain, gout, joint pain, joint swelling, muscle pain, muscle stiffness, neck pain Integumetry: denies: bruises, change in color, change in hair/nails, dryness, laceration, lesions, lumps, rash, wounds, others Allergic/Immunocompromised: denies: Difficulty Healing, Frequent Infections, Hives, Itching, others Hematologic/Lymphatic: denies: anemia, blood clots, easy bleeding, easy bruising, swollen glands, others Endocrine: denies: excessive hunger, excessive sweating, excessive thirst, excessive urination, flushing, intolerance to cold, intolerance to heat, unexplained weight gain, unexplained weight loss, others Psychiatric: denies: anxiety, bipolar disorder, depression, hopeless, panic disorder, schizophrenia, sleepless, suicidal, others Physical Exam General Appearance: No Apparent Distress HEENT: Other (Pupils and face symmetric. Moist mucous membranes.) Neck: Full Range of Motion, Normal Inspection Respiratory: Lungs Clear, No Accessory Muscle Use, No Respiratory Distress, Normal Breath Sounds Cardiovascular: No JVD, Regular Rate/Rhythm Breast Exam: Deferred Gastrointestinal: Non Tender, Soft Genitalia: Deferred Pelvic: Deferred Rectal: Deferred Extremities: Leg edema, Normal range of motion, Pedal edema, Swelling, Tender (Bilateral lower extremities diffusely tender from the feet to the distal thighs) Neurologic: Alert (Oriented x4), Normal Affect, Normal Mood Cerebellar Function: NOT DONE Reflexes: NOT DONE Skin: Dry, Normal Color, Warm Lymphatic: NOT DONE Was a procedure done? Was a procedure done?: No Differential Diagnosis EXT Differential Diagnosis: Cellulitis, CHF, Deep Vein Thrombosis, Septic, Other (lymphedema) Other Differential Diagnosis Stent occlusion X-Ray, Labs, Meds, VS Vital Signs Date Time Temp Pulse Resp B/P (MAP) Pulse Ox O2 Delivery O2 Flow Rate FiO2 11/15/24 21:40 98.5 63 18 129/63 (85) 98 98.5 Lab Test 11/15/24 22:11 Range/Units White Blood Count 6.9 4.4-10.8 10^3/uL Red Blood Count 4.77 4.0-5.20 10^6/uL Hemoglobin 14.7 12.2-16.2 g/dL Hematocrit 44.3 36.0-46.0 % Mean Corpuscular Volume 92.8 80.0-100.0 fL Mean Corpuscular Hemoglobin 30.8 28.0-32.0 pg Mean Corpuscular Hemoglobin Concent 33.2 32.0-36.0 g/dL Red Cell Distribution Width 14.2 11.8-14.3 % Platelet Count 156 140-450 10^3/uL Mean Platelet Volume 11.0 H 6.9-10.8 fL Neutrophils (%) (Auto) 66.2 37.0-80.0 % Lymphocytes (%) (Auto) 23.6 10.0-50.0 % Monocytes (%) (Auto) 8.9 0.0-12.0 % Eosinophils (%) (Auto) 0.9 0.0-7.0 % Basophils (%) (Auto) 0.4 0.0-2.0 % Neutrophils # (Auto) 4.6 1.6-8.6 10 ^3/uL Lymphocytes # (Auto) 1.6 0.4-5.4 10 ^3/uL Monocytes # (Auto) 0.6 0-1.3 10 ^3/uL Eosinophils # (Auto) 0.1 0-0.8 10 ^3/uL Basophils # (Auto) 0 0-0.2 10 ^3/uL Nucleated Red Blood Cells 0.2 % Prothrombin Time 10.9 9.3-11.8 sec Prothrombin Time INR 1.03 0.9-1.15 Activated Partial Thromboplast Time 25.6 24.5-34.5 SEC Sodium Level 142 136-145 mmol/L Potassium Level 3.7 3.5-5.1 mmol/L Chloride Level 108 H 98-107 mmol/L Carbon Dioxide Level 23 20-31 mmol/L Anion Gap 11 5-15 Blood Urea Nitrogen 19 9-23 mg/dL Creatinine 0.93 0.550-1.02 mg/dL Glomerular Filtration Rate Calc 66 >90 mL/min BUN/Creatinine Ratio 20.4 H 10.0-20.0 Serum Glucose 109 H 74-106 mg/dL Lactic Acid Level 1.0 0.4-2.0 mmol/L Calcium Level 10.2 8.7-10.4 mg/dL B-Type Natriuretic Peptide 124.33 0-100 pg/mL PROCEDURE(s): BLDVT - BiLat Lower DVT REASON: ble pain edema ORDER NUMBER(s): [id number], ACCESSION NUMBER(s): [id number] Bilateral lower extremity venous duplex Clinical History: ble pain edema Comparison: US LT LOWER DVT on DOS: 10/10/24, US BILAT LOWER DVT on DOS: 08/22/24, US BILAT LOWER DVT on DOS: 01/19/24 Technique: Duplex Doppler evaluation of the deep venous systems of both lower extremities from the common femoral veins to the popliteal veins including color Doppler and spectral/pulsed waveform analysis was performed. Findings: RIGHT SIDE: The common femoral vein demonstrates appropriate compressibility and waveform variability. There is compressibility/patency of the great saphenous vein at the proximal thigh. The femoral vein demonstrates appropriate compressibility and waveform variability. The deep femoral vein demonstrates appropriate compressibility and waveform variability. The popliteal vein demonstrates appropriate compressibility and waveform variability. Posterior tibial vein not visualized due to overlying wraps. There is otherwise normal compressibility at the tibioperoneal trunk. LEFT SIDE: The common femoral vein demonstrates appropriate compressibility and waveform variability. There is compressibility/patency of the great saphenous vein at the proximal thigh. The femoral vein demonstrates appropriate compressibility and waveform variability. The deep femoral vein demonstrates appropriate compressibility and waveform variability. The popliteal vein demonstrates appropriate compressibility and waveform variability. Posterior tibial vein not visualized due to overlying wraps. There is otherwise normal compressibility at the tibioperoneal trunk. Impression: 1. No right or left femoropopliteal venous thrombosis. Bilateral posterior tibial veins not visualized. EDURE(s): BLEAD - BiLat Low Ext Art Duplex REASON: ble pain s/p art stents ORDER NUMBER(s): [id number], ACCESSION NUMBER(s): [id number] Bilateral Lower Extremity Arterial Duplex Clinical History: ble pain s/p art stents Comparison: US LT LOW EXT ART DUPLEX on DOS: 10/10/24 Technique: Duplex Doppler evaluation including color Doppler and spectral/pulsed waveform analysis of the lower extremity arteries was performed. Findings: RIGHT: Peak systolic velocities are as follows: HEEL CEMENTER MACHINE 152 cm/s Deep femoral 88 cm/s SFA proximal 127 cm/s SFA mid-portion 119 cm/s SFA distal 107 cm/s Popliteal 125 cm/s Posterior tibial not visualized cm/s Anterior and posterior tibial and dorsalis pedis arteries not visualized secondary to overlying dressings. The waveforms are multiphasic throughout. LEFT: Peak systolic velocities are as follows: HEEL CEMENTER MACHINE 113 cm/s Deep femoral 73 cm/s SFA proximal 105 cm/s SFA mid-portion 114 cm/s SFA distal 107 cm/s Popliteal 125 cm/s Anterior and posterior tibial and dorsalis pedis arteries not visualized secondary to overlying dressings. The waveforms are multiphasic throughout. IMPRESSION: 1. Less than 20% predicted stenosis of the right common femoral artery. Otherwise, no hemodynamically significant stenosis or occlusion of the bilateral lower extremity arteries excluding the anterior posterior tibial and dorsalis pedis arteries which were not visualized. REFERENCE VALUES, [facility] ([facility]) vascular Imaging Lab Criteria: Peak systolic velocity ranges (in cm/sec) are as follows: <150 cm/s - <20 % stenosis 150-200 cm/s - 20-49% stenosis 200-300 cm/s - 50-75% stenosis >300 cm/s -> 75% stenosis X-Ray, Labs, Meds, VS Comment 69-year-old female with a history of hypertension, dyslipidemia, CHF, asthma, ly mphedema, AFib and peripheral vascular disease brought in by EMS from home complaining of bilateral lower extremity worsening pain and swelling Vitals unremarkable Exam remarkable for severe edema in both lower extremities with diffuse tenderness from the feet to the distal thighs Rhythm strip independently interpreted by me: Sinus rhythm, rate 63, no ectopy. Bilateral lower extremity Doppler ultrasound negative for DVT Bilateral lower extremity arterial duplex IMPRESSION: 1. Less than 20% predicted stenosis of the right common femoral artery. Otherwise, no hemodynamically significant stenosis or occlusion of the bilateral lower extremity arteries excluding the anterior posterior tibial and dorsalis pedis arteries which were not visualized. CBC, basic metabolic panel and coagulation panel unremarkable, lactate normal, BNP 124.33 Patient treated with the following in the ED: Morphine 4 mg IV, Zofran 4 mg IV On re-evaluation, pain has improved. Vitals were stable. Plan is to admit the patient for pain control and vascular surgical evaluation. Time of 1ST Reevaluation: 22:15 Reevaluation 1ST: Unchanged Patient Education/Counseling: Diagnosis, Treatment Family Education/Counseling: No Family Present Sepsis Sepsis Reasesment Focused Exam Orders: Laboratory Tests 11/15/24 22:11: Lactic Acid Level 1.0 Departure 1 Departure Time of Disposition: 00:12 Impression: Primary Impression: Bilateral lower extremity edema Additional Impressions: Intractable pain Peripheral vascular disease Disposition: ADMITTED INPATIENT Admit to: Med Surg Condition: Fair Critical Care Note Critical Care Time?: No Stability Stability form required: No Heart Score Heart Score: Heart Score Response (Comments) Value History N/A 0 EKG N/A 0 Age N/A 0 Risk Factors N/A 0 Troponin N/A 0 Total 0 I personally scribed for JOSE VASQUEZ MD ([email or web address]) on 11/15/24 at 22:21. Electronically submitted by Matt Benites ([email or web address]). JOSE VASQUEZ MD Nov 15, 2024 22:21
[2024-11-15 22:34] LABS: Hematocrit 44.3 % (36.0-46.0); Hemoglobin 14.7 g/dL (12.2-16.2); Mean Corpuscular Hemoglobin 30.8 pg (28.0-32.0); Mean Corpuscular Volume 92.8 fL (80.0-100.0); Nucleated Red Blood Cells % 0.2 %
[2024-11-15 22:40] LABS: Potassium 3.7 mmol/L (3.5-5.1); Sodium 142 mmol/L (136-145)
[2024-11-15 22:41] LABS: Anion Gap 11 (5-15); Carbon Dioxide 23 mmol/L (20-31)
[2024-11-15 22:42] LABS: Calcium 10.2 mg/dL (8.7-10.4)
[2024-11-15 22:47] LABS: BUN/Creatinine Ratio 20.4 (10.0-20.0); Blood Urea Nitrogen 19 mg/dL (9-23); Chloride 108 mmol/L (98-107); Glucose 109 mg/dL (74-106)
[2024-11-15 23:06] LABS: INR 1.03 (0.9-1.15); Partial Thromboplastin Time 25.6 SEC (24.5-34.5); Prothrombin Time 10.9 sec (9.3-11.8)
--- NOTE | 2024-11-15 23:31 | DVH ---
Bilateral lower extremity venous duplex Clinical History: ble pain edema Comparison: US LT LOWER DVT on DOS: 10/10/24, US BILAT LOWER DVT on DOS: 08/22/24, US BILAT LOWER DVT on DOS: 01/19/24 Technique: Duplex Doppler evaluation of the deep venous systems of both lower extremities from the common femora l veins to the popliteal veins including color Doppler and spectral/pulsed waveform analysis was perf ormed. Findings: RIGHT SIDE: The common femoral vein demonstrates appropriate compressibility and waveform variability. There is compressibility/patency of the great saphenous vein at the proximal thigh. The femoral vein demonstrates appropriate compressibility and waveform variability. The deep femoral vein demonstrates appropriate compressibility and waveform variability. The popliteal vein demonstrates appropriate compressibility and waveform variability. Posterior tibial vein not visualized due to overlying wraps. There is otherwise normal compressibilit y at the tibioperoneal trunk. LEFT SIDE: The common femoral vein demonstrates appropriate compressibility and waveform variability. There is compressibility/patency of the great saphenous vein at the proximal thigh. The femoral vein demonstrates appropriate compressibility and waveform variability. The deep femoral vein demonstrates appropriate compressibility and waveform variability. The popliteal vein demonstrates appropriate compressibility and waveform variability. Posterior tibial vein not visualized due to overlying wraps. There is otherwise normal compressibilit y at the tibioperoneal trunk. Impression: 1. No right or left femoropopliteal venous thrombosis. Bilateral posterior tibial veins not visualize d.
[2024-11-16] VITALS (7 sets, daily range): BP systolic 135–155; BP diastolic 55–79; PULSE 40–55; RESP 11–18; TEMP 97.4–98; O2SAT 95–98
[2024-11-16] MEDS ORDERED: NITROGLYCERIN 0.4 MG SL TAB SL PRN (01:45)
[2024-11-16] MEDS ORDERED: MORPHINE SULFATE INJ 2 MG/ml SYRG IV PRN (01:45)
[2024-11-16] MEDS ORDERED: DOCUSATE SOD 100 MG CAP PO PRN (01:45)
[2024-11-16] MEDS ORDERED: ONDANSETRON HCL 4 MG/2 ML VIAL IV PRN (01:45)
--- NOTE | 2024-11-16 02:22 | DVHHP2 ---
History of Present Illness Reason for Visit: Bilateral lower extremity edema History of Present Illness The patient is a 69-year-old female with past medical history of AFib, asthma, Coronary artery disease, CHF, hyperlipidemia, lymphedema, and hypertension who presented to [facility] with complaint of bilateral lower extremity pain. Patient reports she has been experiencing worsening swelling of the bilateral lower extremity, notes wound on the lateral aspect of right lower extremity, getting worse that prompted this visit. Patient states she underwent bilateral lower extremity arterial stent placement at an outpatient surgical center. She had 3 stents inserted in the right lower extremity and 1 in the left lower extremity. Patient was seen and evaluated in the ED, laboratory data shows WBC 6.9, platelets 156, sodium 142, potassium 3.7, BUN 19, creatinine 0.93, glucose 104, calcium 10.2, BNP 124.33, blood pressure 129/63, heart rate 64, temperature 98.5 F, O2 saturation 98% on room air. Extremity venous study shows no right or left femoropopliteal venous thrombosis. Please see medication orders section in the computer. On my assessment, patient denied chest pain, no head ache, no dizziness, no shortness of breaths, no nausea, no vomiting, no fever, no chills. Patient was admitted for further evaluation and medical management. Past Medical History AFIB, Asthma, CAD, CHF, High Lipids, HTN, Lymphedema Past Surgical History Arterial stents both legs, Bilateral foot surgery Family History Reviewed, noncontributory to the management of this case. Past Social History The patient lives at home, denies smoking, alcohol or illicit drugs abuse. Review of Systems Constitutional: No: Fever, Chills, Sweats, Weakness, Malaise, Other Eyes: No: Pain, Vision change, Conjunctivae inflammation, Eyelid inflammation, Other, Redness ENT: No: Ear pain, Ear discharge, Nose pain, Nose discharge, Nose congestion, Mouth pain, Mouth swelling, Throat pain, Throat swelling, Other Respiratory: No: Cough, Dry, Shortness of breath, SOB with excertion, Wheezing, Hemoptysis, Pleuritic Pain, Sputum, Wheezing, Other Cardiovascular: No: Chest Pain, Palpitations, Orthopnea, Paroxysmal Noc. Dyspnea, Edema, Lt Headedness, Other Gastrointestinal: No: Nausea, Vomiting, Abdominal Pain, Diarrhea, Constipation, Melena, Hematochezia, Other Genitourinary: No Dysuria, No Frequency, No Incontinence, No Hematuria, No Retention, No Other Musculoskeletal: other (bilateral leg pain and swelling); No: neck pain, shoulder pain, arm pain, back pain, hand pain, leg pain, foot pain Skin: Other (Right lower extremity wound); No: Rash, Lesions, Jaundice, Bruising Neurological: No: Weakness, Numbness, Incoordination, Change in speech, Confusion, Seizures, Other Allergies: Coded Allergies: Sulfa Antibiotics (Verified Allergy, Unknown, 11/25/23) Amlodipine (Unverified Adverse Reaction, Unknown, 07/10/24) Peripheral edema Exam Vital Signs Vital Signs Date Time Temp Pulse Resp B/P (MAP) Pulse Ox O2 Delivery O2 Flow Rate FiO2 11/15/24 21:40 98.5 63 18 129/63 (85) 98 98.5 General Appearance: Alert, Oriented X3, Cooperative, No acute distress HEENT: Atraumatic, PERRLA, EOMI, Mucous membr. moist/pink Respiratory: Normal air movement Cardiovascular: Regular rate, Normal S1, Normal S2, No murmurs Abdominal: Normal bowel sounds, Soft, No tenderness, No hepatospenomegaly, No masses Extremities: No clubbing, No cyanosis, Normal pulses, Other (Bilateral lower extremity edema, tenderness, swelling.) Skin: No rashes, No significant lesion Neuro: Normal speech, Normal tone, Sensation intact, Cranial nerves 3-12 NL, Reflexes 2+, Other (Generalized weakness) Psych/Mental Status: Mental status NL, Mood NL Labs/Xrays Labs Test 11/15/24 22:11 Range/Units White Blood Count 6.9 4.4-10.8 10^3/uL Red Blood Count 4.77 4.0-5.20 10^6/uL Hemoglobin 14.7 12.2-16.2 g/dL Hematocrit 44.3 36.0-46.0 % Mean Corpuscular Volume 92.8 80.0-100.0 fL Mean Corpuscular Hemoglobin 30.8 28.0-32.0 pg Mean Corpuscular Hemoglobin Concent 33.2 32.0-36.0 g/dL Red Cell Distribution Width 14.2 11.8-14.3 % Platelet Count 156 140-450 10^3/uL Mean Platelet Volume 11.0 H 6.9-10.8 fL Neutrophils (%) (Auto) 66.2 37.0-80.0 % Lymphocytes (%) (Auto) 23.6 10.0-50.0 % Monocytes (%) (Auto) 8.9 0.0-12.0 % Eosinophils (%) (Auto) 0.9 0.0-7.0 % Basophils (%) (Auto) 0.4 0.0-2.0 % Neutrophils # (Auto) 4.6 1.6-8.6 10 ^3/uL Lymphocytes # (Auto) 1.6 0.4-5.4 10 ^3/uL Monocytes # (Auto) 0.6 0-1.3 10 ^3/uL Eosinophils # (Auto) 0.1 0-0.8 10 ^3/uL Basophils # (Auto) 0 0-0.2 10 ^3/uL Nucleated Red Blood Cells 0.2 % Prothrombin Time 10.9 9.3-11.8 sec Prothrombin Time INR 1.03 0.9-1.15 Activated Partial Thromboplast Time 25.6 24.5-34.5 SEC Sodium Level 142 136-145 mmol/L Potassium Level 3.7 3.5-5.1 mmol/L Chloride Level 108 H 98-107 mmol/L Carbon Dioxide Level 23 20-31 mmol/L Anion Gap 11 5-15 Blood Urea Nitrogen 19 9-23 mg/dL Creatinine 0.93 0.550-1.02 mg/dL Glomerular Filtration Rate Calc 66 >90 mL/min BUN/Creatinine Ratio 20.4 H 10.0-20.0 Serum Glucose 109 H 74-106 mg/dL Lactic Acid Level 1.0 0.4-2.0 mmol/L Calcium Level 10.2 8.7-10.4 mg/dL B-Type Natriuretic Peptide 124.33 0-100 pg/mL PATIENT: NASIR ROSARIO RACCT: [id number] UNIT: [id number] : 1955 LOC: ER ROOM / BED: / AGE / SEX: 69 / F ADM STATUS: REG ER SERVICE [id number] ORDERING PHYSICIAN: JOSE VASQUEZ MD PROCEDURE(s): BLDVT - BiLat Lower DVT REASON: ble pain edema ORDER NUMBER(s): [id number], ACCESSION NUMBER(s): [id number] Bilateral lower extremity venous duplex Clinical History: ble pain edema Comparison: US LT LOWER DVT on DOS: 10/10/24, US BILAT LOWER DVT on DOS: 08/22/24, US BILAT LOWER DVT on DOS: 01/19/24 Technique: Duplex Doppler evaluation of the deep venous systems of both lower extremities from the common femoral veins to the popliteal veins including color Doppler and spectral/pulsed waveform analysis was performed. Findings: RIGHT SIDE: The common femoral vein demonstrates appropriate compressibility and waveform variability. There is compressibility/patency of the great saphenous vein at the proximal thigh. The femoral vein demonstrates appropriate compressibility and waveform variability. The deep femoral vein demonstrates appropriate compressibility and waveform variability. The popliteal vein demonstrates appropriate compressibility and waveform variability. Posterior tibial vein not visualized due to overlying wraps. There is otherwise normal compressibility at the tibioperoneal trunk. LEFT SIDE: The common femoral vein demonstrates appropriate compressibility and waveform variability. There is compressibility/patency of the great saphenous vein at the proximal thigh. The femoral vein demonstrates appropriate compressibility and waveform varia bility. The deep femoral vein demonstrates appropriate compressibility and waveform variability. The popliteal vein demonstrates appropriate compressibility and waveform variability. Posterior tibial vein not visualized due to overlying wraps. There is otherwise normal compressibility at the tibioperoneal trunk. Impression: 1. No right or left femoropopliteal venous thrombosis. Bilateral posterior tibial veins not visualized. SEPSIS Sepsis Screen Date sepsis recognized/suspect: Nov 15, 2024 Time Sepsis recognized/suspect: 2139 Recent Procedure: No On Antibiotic Therapy: No Respiratory Rate >20: No Heart Rate >90: No Temp<36 C (96.8 F) or >38.3 C: No SBP <90 or MAP <65 mmHG: No New Acute Mental Status Change: No Is the patient on CPAP, BIPAP,: No Physician Orders Blood Culture (11/15/24 21:43) Bilat Lower Dvt (11/15/24 21:43) Bilat Low Ext Art Duplex (11/15/24 21:43) Admit (11/16/24 01:38) Allergies (11/16/24 01:38) Code Status (11/16/24 01:38) Sodium Chloride Lock (Saline Lock Ns) (11/16/24 06:00) Oxygen Per Hour (11/16/24 01:38) Hydrocodone-Acet 5/325mg Tab ([place] 5/32 (11/16/24 01:45) Ondansetron Hcl (Zofran) (11/16/24 01:45) Docusate Sodium Capsule (Colace Capsule) (11/16/24 01:45) Complete Blood Count (11/17/24 04:00) Comprehensive Metabolic Panel (11/17/24 04:00) Cardiac Diet-2gna,Lofat,Lochol (11/16/24 Breakfast) Condition: Serious (11/16/24 01:38) Acetaminophen Tablet (Tylenol Tablet) (11/16/24 01:45) Bedrest With Bathroom Privileg (11/16/24:38) Nitroglycerin Sublingual (Ntrostat Subli (11/16/24 01:45) Morphine Sulfate Injection (11/16/24 01:45) Notify Md Of Changes From Base (11/16/24 01:38) Emergency Dysrhythmia Protocol (11/16/24 01:38) Oxygen By Nasal Cannula (11/16/24 01:38) Aspirin Tablet (11/16/24 10:00) Atorvastatin (Lipitor) (11/16/24 22:00) Hydralazine Injection (Apresoline Inject (11/16/24 01:45) Vital Signs Date Time Temp Pulse Resp B/P (MAP) Pulse Ox O2 Delivery O2 Flow Rate FiO2 11/15/24 21:40 98.5 63 18 129/63 (85) 98 98.5 Laboratory Tests Test 11/15/24 22:11 Lactic Acid Level 1.0 mmol/L (0.4-2.0) White Blood Count 6.9 10^3/uL (4.4-10.8) Assessment/Plan Assessment/Plan Bilateral lower extremity edema Lymphedema Intractable pain Generalized weakness Plan 1. Admit to med surge unit 2. Breathing treatment 3. Pain control management 4. Management of fluids and electrolytes 5. Consultation for hospitalist 6. Diagnostic tests extremity venous study 7. DVT prophylaxis-on aspirin 8. Repeat labs CBC, CMP in a.m. 9. Continue with current medical management 10. Treatment plan discussed with patient and RN. Patient verbalized understanding. Plan discussed with: Patient, Other (RN) My Orders Orders - CHANCE YOUNG DNP Procedure Category Date Status Time Admit ADMIT 11/16/24 Verified 01:38 Allergies REX 11/16/24 Verified 01:38 Code Status CODE 11/16/24 Verified 01:38 Sodium Chloride Lock PHA 11/16/24 Verified (Saline Lock Ns) 06:00 Oxygen Per Hour RT 11/16/24 Verified 01:38 Hydrocodone-Acet PHA 11/16/24 Verified 5/325mg Tab ([place] 01:45 Ondansetron Hcl PHA 11/16/24 Verified (Zofran) 01:45 Docusate Sodium PHA 11/16/24 Verified Capsule (Colace 01:45 Complete Blood Count LAB 11/17/24 Verified 04:00 Comprehensive LAB 11/17/24 Verified Metabolic Panel 04:00 Cardiac DIET 11/16/24 Verified Diet-2gna,Lofat,Lochol Breakfast Condition: Serious [facility] 11/16/24 Verified 01:38 Acetaminophen Tablet PHA 11/16/24 Verified (Tylenol Tablet) 01:45 Bedrest With Bathroom [facility] 11/16/24 Verified Privileg 01:38 Nitroglycerin PHA 11/16/24 Verified Sublingual (Ntrostat 01:45 Morphine Sulfate PHA 11/16/24 Verified Injection 01:45 Notify Md Of Changes [facility] 11/16/24 Verified From Base 01:38 Emergency Dysrhythmia [facility] 11/16/24 Verified Protocol 01:38 Oxygen By Nasal RT 11/16/24 Verified Cannula 01:38 Aspirin Tablet PHA 11/16/24 Verified 10:00 Atorvastatin (Lipitor) PHA 11/16/24 Verified 22:00 Hydralazine Injection [facility] 11/16/24 Verified (Apresoline Inject 01:45 Problem List: (1) Bilateral lower extremity edema (2) Lymphedema (3) Intractable pain (4) Generalized weakness Date of Service: Nov 16, 2024 Billing Provider: CHANCE YOUNG DNP Common Visit Codes: [id number] INP/OBS CARE (HIGH) CHANCE YOUNG DNP Nov 16, 2024 02:22
--- NOTE | 2024-11-16 05:12 | DVH ---
Bilateral Lower Extremity Arterial Duplex Clinical History: ble pain s/p art stents Comparison: US LT LOW EXT ART DUPLEX on DOS: 10/10/24 Technique: Duplex Doppler evaluation including color Doppler and spectral/pulsed waveform analysis of the lower extremity arteries was performed. Findings: RIGHT: Peak systolic velocities are as follows: TRIAGE CLINICIAN 152 cm/s Deep femoral 88 cm/s SFA proximal 127 cm/s SFA mid-portion 119 cm/s SFA distal 107 cm/s Popliteal 125 cm/s Posterior tibial not visualized cm/s Anterior and posterior tibial and dorsalis pedis arteries not visualized secondary to overlying dress ings. The waveforms are multiphasic throughout. LEFT: Peak systolic velocities are as follows: TRIAGE CLINICIAN 113 cm/s Deep femoral 73 cm/s SFA proximal 105 cm/s SFA mid-portion 114 cm/s SFA distal 107 cm/s Popliteal 125 cm/s Anterior and posterior tibial and dorsalis pedis arteries not visualized secondary to overlying dress ings. The waveforms are multiphasic throughout. IMPRESSION: 1. Less than 20% predicted stenosis of the right common femoral artery. Otherwise, no hemodynamicall y significant stenosis or occlusion of the bilateral lower extremity arteries excluding the anterior posterior tibial and dorsalis pedis arteries which were not visualized. REFERENCE VALUES, [facility] ([facility]) vascular Imaging Lab Criteria: Peak systolic velocity ranges (in cm/sec) are as follows: <150 cm/s - <20 % stenosis 150-200 cm/s - 20-49% stenosis 200-300 cm/s - 50-75% stenosis >300 cm/s -> 75% stenosis
[2024-11-16] MEDS: SODIUM CHLOR 0.9% PF (SALINE LOCK) 10ML VIAL/SYR IV SCH (05:26)
[2024-11-16] MEDS: MORPHINE SULFATE 4 MG/ML SYR/VIAL IV ONE (07:52)
[2024-11-16] MEDS: ONDANSETRON HCL 4 MG/2 ML VIAL IV ONE (07:52)
--- NOTE | 2024-11-16 11:48 | DVHINCON2 ---
Date Seen: Nov 16, 2024 Referring Physician Yamilex Reason for Consultation Bradycardia History of Present Illness 69-year-old female PMH for lymphedema, CAD, diastolic HF, HLD, HTN, AFib, peripheral vascular disease with PTCA stents presents to the hospital with increased bilateral lower extremity pain. Upon evaluation in the ER, BNP 124, ultrasound bilateral lower extremity negative for thrombus. While monitored on telemetry patient noted to have bradycardia with heart rate dropping down at 36. Cardiology consulted. EKG reviewed and shows sinus bradycardia at 38 beats per minute, nonspecific ST and T-wave abnormality Past Medical History As stated above Past Surgical History Coronary angiogram 09/09/2024, negative for obstructive CAD Family History: Cardiovascular disease G8 MOTHER (GALLBLADDER STONES), , Age: 90, Onset:60 years & older (had cancer but mother from gallbladder per patient) family hx1, , Age: 95, Onset:60 years & older (heart attack) FHx: bladder cancer G8 MOTHER (GALLBLADDER STONES), , Age: 90, Onset:60 years & older Family History Denies pertinent family cardiac history Social History Denies alcohol, tobacco, or illicit drug Allergies: Coded Allergies: Sulfa Antibiotics (Verified Allergy, Unknown, 11/25/23) Amlodipine (Unverified Adverse Reaction, Unknown, 07/10/24) Peripheral edema Home Meds Active Scripts Cephalexin (KEFLEX CAPSULE) 250 Mg Cp, 1 CAP PO QID for 7 Days, #28 CAP Prov:ROSEANN LÓPEZ PAC 10/25/24 Hydrocodone-Acetaminophen (Hydrocodone Bitartrate/AC 10-325 mg) 1 Tab Tab, 1 TAB PO Q8HP PRN, #15 TAB Prov:ROSEANN LÓPEZ PAC 10/25/24 Ibuprofen (Ibuprofen) 600 Mg Tab, 1 TAB PO Q6HP PRN, #30 TAB Prov:ROSEANN LÓPEZ PAC 10/25/24 Gabapentin (Once-Daily) (Gabapentin) 300 Mg Tab, 300 MG PO Q6HP PRN, #90 TAB 3 Refills Prov:JENNY ALAMO MD 10/18/24 Doxycycline (Monohydrate) (Doxycycline) 100 Mg Cap, 100 MG PO BID for 7 Days, #14 CAP Prov:JENNY ALAMO MD 10/18/24 Amoxicillin & Pot Clavulanate (AUGMENTIN TABLET) 875 Mg Tb, 875 MG PO BID for 10 Days, #20 TAB Prov:RUSSELL CORONA MD 10/12/24 Reported Medications Nifedipine (Nifedipine Er) 60 Mg Tab, 1 TAB PO DAILY, #30 TAB 5 Refills 10/12/24 Spironolactone (Spironolactone) 25 Mg Tab, 1 TAB PO DAILY for 90 Days, #90 09/06/24 Olmesartan Medoxomil (Olmesartan Medoxomil) 40 Mg Tab, 1 TAB PO DAILY@9 for 30 Days, #30 09/06/24 Tramadol Hcl (Tramadol Hcl) 50 Mg Tab, 1-2 TAB PO BID PRN for 30 Days, #120 08/01/24 Rosuvastatin Calcium (Rosuvastatin Calcium) 40 Mg Tab, 1 TAB PO DAILY for 90 Days, #90 06/10/24 Current Medications Current Medications Medications (Trade) Dose Ordered Sig/Alfonso Route PRN Reason Start Time Stop Time Status Last Admin Sodium Chloride (Saline Lock Ns) 10 ml Q8HR IV 11/16/24 06:00 11/16/24 05:26 Acetaminophen/ Hydrocodone Bitart ([place] 5/325MG Tab) 1 tab Q4HP PRN PO MODERATE PAIN (4-6 PAIN SCALE) 11/16/24 01:45 Ondansetron HCl (Zofran) 4 mg Q4HP PRN IV NAUSEA / VOMITING 11/16/24 01:45 Docusate Sodium (Colace Capsule) 100 mg BIDPRN PRN PO FOR CONSTIPATION 11/16/24 01:45 Acetaminophen (Tylenol Tablet) 650 mg Q6HP PRN PO PAIN SCALE 1-3 OR TEMP>100.4 11/16/24 01:45 Nitroglycerin (Ntrostat Sublingual) 0.4 mg Q5MINP PRN SL FOR CHEST PAIN 11/16/24 01:45 Morphine Sulfate 2 mg Q30M PRN IV FOR CHEST PAIN 11/16/24 01:45 Aspirin 81 mg DAILY PO 11/16/24 10:00 Atorvastatin Calcium (Lipitor) 20 mg HS PO 11/16/24 22:00 Hydralazine HCl (Apresoline Injection) 10 mg Q6HP PRN IV SBP>150 11/16/24 01:45 Review of Systems Constitutional: No: Fever, Chills, Sweats, Weakness, Malaise, Other Eyes: No: Pain, Vision change, Conjunctivae inflammation, Eyelid inflammation, Other, Redness ENT: No: Ear pain, Ear discharge, Nose pain, Nose discharge, Nose congestion, Mouth pain, Mouth swelling, Throat pain, Throat swelling, Other Respiratory: No: Cough, Dry, Shortness of breath, SOB with exertion, Wheezing, Hemoptysis, Pleuritic Pain, Sputum, Wheezing, Other Cardiovascular: ; No: Chest Pain Palpitations, Orthopnea, Paroxysmal Noc. Dyspnea, Edema, Lt Headedness, Other Gastrointestinal: No: Nausea, Vomiting, Abdominal Pain, Diarrhea, Constipation, Melena, Hematochezia, Other Genitourinary: No Dysuria, No Frequency, No Incontinence, No Hematuria, No R etention, No Other Musculoskeletal: neck pain; No: other, shoulder pain, arm pain, back pain, hand pain, leg pain, foot pain Skin: No: Rash, Lesions, Jaundice, Bruising, Other Neurological: Other (Dizziness, headache.); No: Weakness, Numbness, Incoordination, Change in speech, Confusion, Seizures Vital Signs Vital Signs Date Time Temp Pulse Resp B/P (MAP) Pulse Ox O2 Delivery O2 Flow Rate FiO2 11/16/24 10:00 50 16 142/50 (80) 97 11/16/24 09:00 97.7 97.7 11/16/24 08:00 Room Air* 0 21 Physical Exam General appearance: Patient is well-developed, well-nourished, in no acute distress. HEENT: Exam shows: Normocephalic, atraumatic, PERRLA, EOMI Neck: Supple, no bruits Chest: Equal chest excursion bilaterally. Breath sounds normal-no rales or wheezes. Heart: Rhythm: Regular rate; bradycardia no murmur or gallop Abdomen: Exam shows: Soft, nontender, nondistended Musculoskeletal: No clubbing, no cyanosis, + lower extremity edema Dermatology: Skin warm, moist. Neurological: Exam shows: Alert and oriented x4, normal speech Available prior records, labs, EKG, rhythm strips reviewed and interpreted Labs/Diagnostic Data Labs Test 11/15/24 22:11 Range/Units White Blood Count 6.9 4.4-10.8 10^3/uL Red Blood Count 4.77 4.0-5.20 10^6/uL Hemoglobin 14.7 12.2-16.2 g/dL Hematocrit 44.3 36.0-46.0 % Mean Corpuscular Volume 92.8 80.0-100.0 fL Mean Corpuscular Hemoglobin 30.8 28.0-32.0 pg Mean Corpuscular Hemoglobin Concent 33.2 32.0-36.0 g/dL Red Cell Distribution Width 14.2 11.8-14.3 % Platelet Count 156 140-450 10^3/uL Mean Platelet Volume 11.0 H 6.9-10.8 fL Neutrophils (%) (Auto) 66.2 37.0-80.0 % Lymphocytes (%) (Auto) 23.6 10.0-50.0 % Monocytes (%) (Auto) 8.9 0.0-12.0 % Eosinophils (%) (Auto) 0.9 0.0-7.0 % Basophils (%) (Auto) 0.4 0.0-2.0 % Neutrophils # (Auto) 4.6 1.6-8.6 10 ^3/uL Lymphocytes # (Auto) 1.6 0.4-5.4 10 ^3/uL Monocytes # (Auto) 0.6 0-1.3 10 ^3/uL Eosinophils # (Auto) 0.1 0-0.8 10 ^3/uL Basophils # (Auto) 0 0-0.2 10 ^3/uL Nucleated Red Blood Cells 0.2 % Prothrombin Time 10.9 9.3-11.8 sec Prothrombin Time INR 1.03 0.9-1.15 Activated Partial Thromboplast Time 25.6 24.5-34.5 SEC Sodium Level 142 136-145 mmol/L Potassium Level 3.7 3.5-5.1 mmol/L Chloride Level 108 H 98-107 mmol/L Carbon Dioxide Level 23 20-31 mmol/L Anion Gap 11 5-15 Blood Urea Nitrogen 19 9-23 mg/dL Creatinine 0.93 0.550-1.02 mg/dL Glomerular Filtration Rate Calc 66 >90 mL/min BUN/Creatinine Ratio 20.4 H 10.0-20.0 Serum Glucose 109 H 74-106 mg/dL Lactic Acid Level 1.0 0.4-2.0 mmol/L Calcium Level 10.2 8.7-10.4 mg/dL B-Type Natriuretic Peptide 124.33 0-100 pg/mL Assessment * Sinus Bradycardia - asymptomatic. No signs of AV esdras blocks on review. Recently finished Holter monitor with her primary sales marketing manager Dr. Jang. Recommend follow up. Check TSH. Avoid AV esdras meds. * Mild Acute on Chronic Diastolic HF - recent echo showing EF 60%, moderate TR. Lasix 40 mg IV daily. May resume home medication on DC * Lymphadema - ultrasound negative for DVT. Management per primary team. Plan discussed with: Patient NYHA Physical activity limitations: Class2(Slight)fatigue,sob Date of Service: Nov 16, 2024 Billing Provider: MARTIR KAUR Cardiology Common Codes: [id number] INP/OBS CARE (High), [id number] CARE 30-74 MIN MARTIR KAUR Nov 16, 2024 11:48
[2024-11-16] MEDS: FUROSEMIDE 40 MG/4 ML VIAL IV ONE (13:10)
[2024-11-16 15:14] LABS: Urine Protein, UAD Negative (Negative)
[2024-11-16] MEDS: HYDROcodone-ACET 5/325MG TAB PO PRN (16:15)
--- NOTE | 2024-11-16 17:51 | DVHPN2 ---
Subjective Patient continues to report having bilateral lower extremity pain, noted more so in anterior tibialis areas Reviewed: Care Plan, H&P, Labs, Medications Changes from previous H/P or p: No Changes General: Per HPI Eyes: No Pain, No Vision change, No Conjunctivae inflammation, No Eyelid inflammation, No Other, No Redness ENT: No Ear pain, No Ear discharge, No Nose pain, No Nose discharge, No Nose congestion, No Mouth pain, No Mouth swelling, No Throat pain, No Throat swelling, No Other Cardiovascular: No Chest Pain, No Palpitations, No Orthopnea, No Paroxysmal Noc. Dyspnea, No Edema, No Lt Headedness, No Other Respiratory: No Cough, No Dry, No Shortness of breath, No SOB with excertion, No Wheezing, No Hemoptysis, No Pleuritic Pain, No Sputum, No Other Gastrointestinal: No Nausea, No Vomiting, No Abdominal Pain, No Diarrhea, No Constipation, No Melena, No Hematochezia, No Other Genitourinary: No Dysuria, No Frequency, No Incontinence, No Hematuria, No Retention, No Other Musculoskeletal: other (bilateral leg pain and swelling); No neck pain, No shoulder pain, No arm pain, No back pain, No hand pain, No leg pain, No foot pain Skin: No Rash, No Lesions, No Jaundice, No Bruising; Other (Right lower extremity wound) Objective Vitals Vital Signs Date Time Temp Pulse Resp B/P (MAP) Pulse Ox O2 Delivery O2 Flow Rate FiO2 11/16/24 17:00 97.4 50 17 135/55 (81) 95 97.4 11/16/24 08:00 Room Air* 0 21 General Appearance: Alert, Oriented X3, Cooperative HEENT: Atraumatic, PERRLA Lungs: Clear to auscultation, Normal air movement Cardiovascular: Normal S1, Normal S2 Abdomen: Soft, No tenderness, No hepatospenomegaly, No masses Musculoskeletal: Normal sensory function, Normal motor function Extremities: Other (Plus two pitting edema to bilateral lower extremities) Skin: Wounds (See nurse notes and pictures), Other (Redness and erythema to bilateral lower extremities) Psych/Mental Status: Mental status NL, Mood NL Medications Current Medications Medications Dose Ordered Sig/Alfonso Route Start Time Stop Time Status Last Admin Dose Admin Sodium Chloride 10 ml Q8HR IV 11/16/24 06:00 11/16/24 14:00 10 ML Acetaminophen/ Hydrocodone Bitart 1 tab Q4HP PRN PO 11/16/24 01:45 11/16/24 16:15 1 TAB Ondansetron HCl 4 mg Q4HP PRN IV 11/16/24 01:45 Docusate Sodium 100 mg BIDPRN PRN PO 11/16/24 01:45 Acetaminophen 650 mg Q6HP PRN PO 11/16/24 01:45 Nitroglycerin 0.4 mg Q5MINP PRN SL 11/16/24 01:45 Morphine Sulfate 2 mg Q30M PRN IV 11/16/24 01:45 Aspirin 81 mg DAILY PO 11/16/24 10:00 11/16/24 13:09 81 MG Atorvastatin Calcium 20 mg HS PO 11/16/24 22:00 Hydralazine HCl 10 mg Q6HP PRN IV 11/16/24 01:45 Furosemide 40 mg DAILY IV 11/17/24 10:00 Laboratory Results Laboratory Tests 11/15/24 22:11 Chemistry Test 11/15/24 22:11 Calcium Level 10.2 mg/dL (8.7-10.4) Coagulation Test 11/15/24 22:11 Prothrombin Time 10.9 sec (9.3-11.8) Prothrombin Time INR 1.03 (0.9-1.15) Activated Partial Thromboplast Time 25.6 SEC (24.5-34.5) Cardiac Markers Test 11/15/24 22:11 B-Type Natriuretic Peptide 124.33 pg/mL (0-100) HgA1c, TSH Test 11/16/24 13:26 Thyroid Stimulating Hormone (TSH) 0.49 uIU/mL (0.55-4.78) L Urinalysis Test 11/16/24 10:00 Urine Color Yellow (Yellow) Urine Clarity Clear (Clear) Urine pH 5.0 (5.0-9.0) Urine Specific [place] 1.025 (1.001-1.035) Urine Protein Negative (Negative) Urine Ketones Negative (Negative) Urine Blood Negative /uL (Negative) Urine Nitrite Negative (Negative) Urine Bilirubin Negative (Negative) Urine Urobilinogen Normal mg/dL (Negative) Urine Leukocyte Esterase Negative /uL (Negative) Urine RBC 2 /hpf (0 - 4) Urine Microscopic WBC 4 /HPF (0-5) Urine Squamous Epithelial Cells Few /hpf (<5) Urine Bacteria None seen /hpf (None Seen) Urine Hyaline Casts Few /lpf (0 - 2) Urine Mucus Few (None Seen) Urine Glucose Normal mg/dL (Normal) Labs and/or images reviewed: Labs reviewed by me, Image(s) reviewed by me Assessment/Plan Assessment/Plan Impression: -acute on chronic decompensated diastolic heart failure, HFpEF -acute on chronic bilateral lower extremity cellulitis -cerebral palsy -peripheral arterial disease with stent placement -primary hypertension Plan: -continue IV Lasix, had hydrochlorothiazide -check ESR, CRP. White blood cell count normal. Patient reports that he is completing oral antibiotic therapy. If inflammatory markers are elevated, restart IV antibiotics -continue home antiplatelet therapy -repeat labs in a.m. -pain management Total time spent with patient discussing and formulating plan of care: 35 minutes. This medical document was created using an electronic medical record system with [employer] dictation system. Although this document has been carefully reviewed, there may still be some phonetic and typographical errors. These areas are purely typographical due to imperfections of the software programs, and do not reflect any compromise in the patient's medical care. Plan discussed with: Patient, Other (RN) My Orders Orders - OPHELIA MEJIA NP Procedure Category Date Status Time * Wound Consult CONS 11/16/24 Transmitted Erythrocyte LAB 11/16/24 Verified Sedimentation Rate 17:46 Complete Blood Count LAB 11/16/24 Verified 17:46 Hydrochlorothiazide PHA 11/17/24 Verified Tablet (Hydrochlorot 10:00 Date of Service: Nov 16, 2024 Billing Provider: OPHELIA MEJIA NP Common Visit Codes: [id number] INP/OBS CARE(HIGH) OPHELIA MEJIA NP Nov 16, 2024 17:51
[2024-11-16 19:18] LABS: Hematocrit 46.5 % (36.0-46.0); Hemoglobin 15.3 g/dL (12.2-16.2); Mean Corpuscular Hemoglobin 30.5 pg (28.0-32.0); Mean Corpuscular Volume 92.5 fL (80.0-100.0); Nucleated Red Blood Cells % 0.0 %
--- NOTE | 2024-11-16 19:18 | DVHSR ---
APPROVED REPORT EXAM: Two-dimensional and M-mode echocardiogram with Doppler and color Doppler. Blood Pressure: 145/62 mmHg INDICATION Bradycardia RISK FACTORS Height: 5' 6", Weight: 184 DIMENSIONS LVDd4.6 (3.8-5.7cm)LA (2D)3.8 (1.9-4.0cm)Aortic Root2.8 (2.0-3.7cm) LVDs3.2 (2.5-4.0cm)LA (MM) (1.9-4.0cm)Aortic Cusp Exc1.4 (1.5-2.0cm) EF (%) 57.0 (55-70%)Rt. Atrium3.7 (1.9-4.0cm)Asc. Aorta cm IVSd1.0 (0.7-1.1cm)RV (D) (1.8-2.4cm) PWd0.8 (0.7-1.1cm) Mitral Valve MitralMitral Stenosis E wave1.00m/sMV Mean GR.mmHg A wave0.90m/sMV Peak GR.mmHg E/A ratio1.12D MVAcm2 Aortic Valve Aortic ValveAortic Stenosis V11.20m/Wang Mean GR.11mmHg V22.30m/Wang Peak GR.22mmHg LVOT Diameter1.8 (1.8-2.4cm)Doppler AVA1.33cm2 AI P 1/2 Saaf197.65ms Pulmonic Valve V21.00m/s Tricuspid Valve TR Velocity2.10m/s [id number] Conclusion Left ventricle: Left ventricle was normal-sized with normal systolic function. LVEF was 55-60%. Th ere was no wall motion abnormality. Diastolic function was considered normal. Right ventricle was normal-sized with normal systolic function. Both atria were normal-sized. Aortic valve was not well visualized. There was felb-yb-sbaiafaj aortic insufficiency. There was no aortic stenosis. There was trace mitral regurgitation. There was mild tricuspid regurgitation. Pu lmonary valve was not well visualized. Trace pulmonary valve insufficiency was seen. Right ventricular systolic pressure was assessed normal at 34 Hg. There was no pericardial effusion
[2024-11-16] MEDS: ATORVASTATIN 20 MG TAB PO SCH (22:16)
[2024-11-17] VITALS (8 sets, daily range): BP systolic 130–163; BP diastolic 51–88; PULSE 40–55; RESP 14–18; TEMP 97–98.1; O2SAT 95–100
[2024-11-17 06:27] LABS: Alanine Aminotransferase 16 U/L (7-40); Albumin 3.9 g/dL (3.2-4.8); Alkaline Phosphatase 83 U/L (46-116); BUN/Creatinine Ratio 31.3 (10.0-20.0); Calcium 9.1 mg/dL (8.7-10.4); Chloride 106 mmol/L (98-107); Potassium 4.2 mmol/L (3.5-5.1); Sodium 140 mmol/L (136-145); Total Protein 5.8 g/dL (5.7-8.2)
[2024-11-17 06:28] LABS: Bilirubin, Total 0.3 mg/dL (0.2-1.0)
[2024-11-17 06:31] LABS: Blood Urea Nitrogen 25 mg/dL (9-23); Glucose 117 mg/dL (74-106)
[2024-11-17 06:42] LABS: Anion Gap 11 (5-15); Carbon Dioxide 23 mmol/L (20-31)
[2024-11-17 08:29] LABS: Hematocrit 43.1 % (36.0-46.0); Hemoglobin 14.8 g/dL (12.2-16.2); Mean Corpuscular Hemoglobin 31.4 pg (28.0-32.0); Mean Corpuscular Volume 91.3 fL (80.0-100.0); Nucleated Red Blood Cells % 0.2 %
[2024-11-17] MEDS: hydroCHLOROthiazide 25 MG TAB PO SCH (09:00)
[2024-11-17] MEDS: FUROSEMIDE 40 MG/4 ML VIAL IV SCH ×2 (09:01→17:42)
--- NOTE | 2024-11-17 13:35 | DVHPN2 ---
Subjective Leg swelling is still persistent. However she is diuresing well. Ultrasound of the legs arterial and venous did not show any acute pathology. Reviewed: Care Plan, H&P, Labs, Medications Changes from previous H/P or p: No Changes General: Per HPI Eyes: No Pain, No Vision change, No Conjunctivae inflammation, No Eyelid inflammation, No Other, No Redness ENT: No Ear pain, No Ear discharge, No Nose pain, No Nose discharge, No Nose congestion, No Mouth pain, No Mouth swelling, No Throat pain, No Throat swelling, No Other Cardiovascular: No Chest Pain, No Palpitations, No Orthopnea, No Paroxysmal Noc. Dyspnea, No Edema, No Lt Headedness, No Other Respiratory: No Cough, No Dry, No Shortness of breath, No SOB with excertion, No Wheezing, No Hemoptysis, No Pleuritic Pain, No Sputum, No Other Gastrointestinal: No Nausea, No Vomiting, No Abdominal Pain, No Diarrhea, No Constipation, No Melena, No Hematochezia, No Other Genitourinary: No Dysuria, No Frequency, No Incontinence, No Hematuria, No Retention, No Other Musculoskeletal: other (bilateral leg pain and swelling); No neck pain, No shoulder pain, No arm pain, No back pain, No hand pain, No leg pain, No foot pain Skin: No Rash, No Lesions, No Jaundice, No Bruising; Other (Right lower extremity wound) Objective Vitals Vital Signs Date Time Temp Pulse Resp B/P (MAP) Pulse Ox O2 Delivery O2 Flow Rate FiO2 11/17/24 09:01 158/82 11/17/24 08:30 97.3 52 14 100 97.3 11/17/24 08:00 Room Air* 0 21 Intake/Output Intake and Output 11/17/24 07:00 Intake Total 1172 ml Output Total 1100 ml Balance 72 ml Intake Oral 1172 ml Output Urine Total 1100 ml # Voids 8 # Bowel Movements 1 General Appearance: Alert, Oriented X3, Cooperative HEENT: Atraumatic, PERRLA Lungs: Clear to auscultation, Normal air movement Cardiovascular: Normal S1, Normal S2 Abdomen: Soft, No tenderness, No hepatospenomegaly, No masses Musculoskeletal: Normal sensory function, Normal motor function Extremities: Other (Plus two pitting edema to bilateral lower extremities) Skin: Wounds (See nurse notes and pictures), Other (Redness and erythema to bilateral lower extremities) Psych/Mental Status: Mental status NL, Mood NL Medications Current Medications Medications Dose Ordered Sig/Alfonso Route Start Time Stop Time Status Last Admin Dose Admin Sodium Chloride 10 ml Q8HR IV 11/16/24 06:00 11/17/24 06:20 10 ML Acetaminophen/ Hydrocodone Bitart 1 tab Q4HP PRN PO 11/16/24 01:45 11/17/24 09:00 1 TAB Ondansetron HCl 4 mg Q4HP PRN IV 11/16/24 01:45 Docusate Sodium 100 mg BIDPRN PRN PO 11/16/24 01:45 Acetaminophen 650 mg Q6HP PRN PO 11/16/24 01:45 Nitroglycerin 0.4 mg Q5MINP PRN SL 11/16/24 01:45 Morphine Sulfate 2 mg Q30M PRN IV 11/16/24 01:45 Aspirin 81 mg DAILY PO 11/16/24 10:00 11/17/24 08:59 81 MG Atorvastatin Calcium 20 mg HS PO 11/16/24 22:00 11/16/24 22:16 20 MG Hydralazine HCl 10 mg Q6HP PRN IV 11/16/24 01:45 Furosemide 40 mg DAILY IV 11/17/24 10:00 11/17/24 09:01 40 MG Hydrochlorothiazide 25 mg DAILY PO 11/17/24 10:00 11/17/24 09:00 25 MG Enoxaparin Sodium 40 mg DAILY SC 11/18/24 10:00 Potassium Chloride 8 meq DAILY PO 11/18/24 10:00 Laboratory Results Laboratory Tests 11/17/24 05:18 11/17/24 08:03 Chemistry Test 11/17/24 05:18 Albumin 3.9 g/dL (3.2-4.8) Calcium Level 9.1 mg/dL (8.7-10.4) Total Protein 5.8 g/dL (5.7-8.2) LFT Test 11/17/24 05:18 Alanine Aminotransferase (ALT) 16 U/L (7-40) Alkaline Phosphatase 83 U/L (46-116) Aspartate Amino Transferase (AST) 26 U/L (13-40) Total Bilirubin 0.3 mg/dL (0.2-1.0) Urinalysis Test 11/16/24 10:00 Urine Color Yellow (Yellow) Urine Clarity Clear (Clear) Urine pH 5.0 (5.0-9.0) Urine Specific [place] 1.025 (1.001-1.035) Urine Protein Negative (Negative) Urine Ketones Negative (Negative) Urine Blood Negative /uL (Negative) Urine Nitrite Negative (Negative) Urine Bilirubin Negative (Negative) Urine Urobilinogen Normal mg/dL (Negative) Urine Leukocyte Esterase Negative /uL (Negative) Urine RBC 2 /hpf (0 - 4) Urine Microscopic WBC 4 /HPF (0-5) Urine Squamous Epithelial Cells Few /hpf (<5) Urine Bacteria None seen /hpf (None Seen) Urine Hyaline Casts Few /lpf (0 - 2) Urine Mucus Few (None Seen) Urine Glucose Normal mg/dL (Normal) Microbiology Microbiology Date/Time Source Procedure Growth Status 11/15/24 22:11 Blood Blood Culture - Preliminary NO GROWTH AFTER 24 HOURS OF INCUBATION. Resulted Assessment/Plan Assessment/Plan Clinically stable. We will check echocardiogram to see if she has any diastolic heart failure causing her leg swelling. Meantime I will increase the Lasix to twice a day. Potassium supplementation. Otherwise continue rest of supportive care and treatment. Further clinical management per clinical course. Discussed with the patient at bedside regarding care plan. Plan discussed with: Patient, Other My Orders Orders - AWA MILTON MD Procedure Category Date Status Time Pt Request For Service PT 11/17/24 Logged 11:19 Enoxaparin Sodium PHA 11/18/24 In Process (Lovenox) 10:00 Potassium Er Tablet PHA 11/18/24 In Process (Klor-Con Tablet) 10:00 Basic Metabolic Panel LAB 11/18/24 Verified 05:00 Basic Metabolic Panel LAB 11/19/24 Verified 05:00 Basic Metabolic Panel LAB 11/20/24 Verified 05:00 Basic Metabolic Panel LAB 11/21/24 Verified 05:00 Basic Metabolic Panel LAB 11/22/24 Verified 05:00 Problem List: (1) Generalized weakness (2) Lymphedema (3) Peripheral vascular disease (4) Bilateral lower extremity edema Date of Service: Nov 17, 2024 Billing Provider: AWA MILTON MD Common Visit Codes: [id number] INP/OBS CARE(MOD) AWA MILTON MD Nov 17, 2024 13:35
[2024-11-17] MEDS: POTASSIUM CHLORIDE 8 MEQ TAB PO SCH (21:42)
[2024-11-18] VITALS (8 sets, daily range): BP systolic 116–149; BP diastolic 60–85; PULSE 48–70; RESP 16–20; TEMP 97.6–98.4; O2SAT 95–100
--- NOTE | 2024-11-18 04:33 | ECG ---
[facility] Test Date: 2024-11-16 Test Time: 04:46:08 Pat Name: NASIR ROSARIO [facility] F Supervisor [employer]: DWAYNE : 1955 Requested By: JOSE HENDRIX Order Number: [id number] Reading MD: Mayank Vidales Measurements Intervals [place] Rate: 38 P: -9 [place]: 145 QRS: 35 QRSD: 92 T: 58 QT: 501 QTc: 399 Interpretive Statements Sinus bradycardia ST elevation, consider inferior injury Electronically Signed On 11-18-2024 19:25:24 PDT by Mayank Vidales Please click the below link to view image of tracing.
[2024-11-18] MEDS: hydrALAZINE HCL 20 MG/ML VL IV PRN (06:08)
[2024-11-18 06:42] LABS: Anion Gap 10 (5-15); Calcium 10.1 mg/dL (8.7-10.4); Carbon Dioxide 27 mmol/L (20-31); Chloride 102 mmol/L (98-107); Potassium 4.1 mmol/L (3.5-5.1); Sodium 139 mmol/L (136-145)
[2024-11-18 06:48] LABS: BUN/Creatinine Ratio 27.8 (10.0-20.0); Glucose 87 mg/dL (74-106)
[2024-11-18 06:49] LABS: Blood Urea Nitrogen 25 mg/dL (9-23)
[2024-11-18] MEDS: ENOXAPARIN SOD 40 MG/0.4 ML SYRINGE SC SCH (09:41)
[2024-11-18] MEDS ORDERED: POTASSIUM CHLORIDE 8 MEQ TAB PO SCH (10:00)
--- NOTE | 2024-11-18 13:26 | DVHPN2 ---
Subjective Leg swelling has improved. Patient is feeling little bit better. Chronic venous stasis also appears to be improved. Reviewed: Care Plan, H&P, Labs, Medications Changes from previous H/P or p: No Changes General: Per HPI Eyes: No Pain, No Vision change, No Conjunctivae inflammation, No Eyelid inflammation, No Other, No Redness ENT: No Ear pain, No Ear discharge, No Nose pain, No Nose discharge, No Nose congestion, No Mouth pain, No Mouth swelling, No Throat pain, No Throat swelling, No Other Cardiovascular: No Chest Pain, No Palpitations, No Orthopnea, No Paroxysmal Noc. Dyspnea, No Edema, No Lt Headedness, No Other Respiratory: No Cough, No Dry, No Shortness of breath, No SOB with excertion, No Wheezing, No Hemoptysis, No Pleuritic Pain, No Sputum, No Other Gastrointestinal: No Nausea, No Vomiting, No Abdominal Pain, No Diarrhea, No Constipation, No Melena, No Hematochezia, No Other Genitourinary: No Dysuria, No Frequency, No Incontinence, No Hematuria, No Retention, No Other Musculoskeletal: other (bilateral leg pain and swelling); No neck pain, No shoulder pain, No arm pain, No back pain, No hand pain, No leg pain, No foot pain Skin: No Rash, No Lesions, No Jaundice, No Bruising; Other (Right lower extremity wound) Objective Vitals Vital Signs Date Time Temp Pulse Resp B/P (MAP) Pulse Ox O2 Delivery O2 Flow Rate FiO2 11/18/24 13:00 98.4 52 16 149/76 (100) 98 98.4 11/18/24 08:10 Room Air* 0 21 Intake/Output Intake and Output 11/18/24 07:00 Intake Total 2 ml Balance 2 ml Intake Oral 2 ml # Voids 10 # Bowel Movements 2 General Appearance: Alert, Oriented X3, Cooperative HEENT: Atraumatic, PERRLA Lungs: Clear to auscultation, Normal air movement Cardiovascular: Normal S1, Normal S2 Abdomen: Soft, No tenderness, No hepatospenomegaly, No masses Musculoskeletal: Normal sensory function, Normal motor function Extremities: Other (Plus two pitting edema to bilateral lower extremities) Skin: Wounds (See nurse notes and pictures), Other (Redness and erythema to bilateral lower extremities) Psych/Mental Status: Mental status NL, Mood NL Medications Current Medications Medications Dose Ordered Sig/Alfonso Route Start Time Stop Time Status Last Admin Dose Admin Sodium Chloride 10 ml Q8HR IV 11/16/24 06:00 11/18/24 06:01 10 ML Acetaminophen/ Hydrocodone Bitart 1 tab Q4HP PRN PO 11/16/24 01:45 11/18/24 07:31 1 TAB Ondansetron HCl 4 mg Q4HP PRN IV 11/16/24 01:45 Docusate Sodium 100 mg BIDPRN PRN PO 11/16/24 01:45 Acetaminophen 650 mg Q6HP PRN PO 11/16/24 01:45 Nitroglycerin 0.4 mg Q5MINP PRN SL 11/16/24 01:45 Morphine Sulfate 2 mg Q30M PRN IV 11/16/24 01:45 Aspirin 81 mg DAILY PO 11/16/24 10:00 11/18/24 09:40 81 MG Atorvastatin Calcium 20 mg HS PO 11/16/24 22:00 11/17/24 21:42 20 MG Hydralazine HCl 10 mg Q6HP PRN IV 11/16/24 01:45 11/18/24 06:08 10 MG Hydrochlorothiazide 25 mg DAILY PO 11/17/24 10:00 11/18/24 09:41 25 MG Enoxaparin Sodium 40 mg DAILY SC 11/18/24 10:00 11/18/24 09:41 40 MG Furosemide 40 mg BIDD IV 11/17/24 18:00 11/18/24 06:01 40 MG Potassium Chloride 8 meq BID PO 11/17/24 22:00 11/18/24 09:40 8 MEQ Laboratory Results Laboratory Tests 11/17/24 08:03 11/18/24 05:36 Chemistry Test 11/18/24 05:36 Calcium Level 10.1 mg/dL (8.7-10.4) Urinalysis Test 11/16/24 10:00 Urine Color Yellow (Yellow) Urine Clarity Clear (Clear) Urine pH 5.0 (5.0-9.0) Urine Specific [place] 1.025 (1.001-1.035) Urine Protein Negative (Negative) Urine Ketones Negative (Negative) Urine Blood Negative /uL (Negative) Urine Nitrite Negative (Negative) Urine Bilirubin Negative (Negative) Urine Urobilinogen Normal mg/dL (Negative) Urine Leukocyte Esterase Negative /uL (Negative) Urine RBC 2 /hpf (0 - 4) Urine Microscopic WBC 4 /HPF (0-5) Urine Squamous Epithelial Cells Few /hpf (<5) Urine Bacteria None seen /hpf (None Seen) Urine Hyaline Casts Few /lpf (0 - 2) Urine Mucus Few (None Seen) Urine Glucose Normal mg/dL (Normal) Microbiology Microbiology Date/Time Source Procedure Growth Status 11/15/24 22:11 Blood Blood Culture - Preliminary NO GROWTH AFTER 48 HOURS OF INCUBATION. Resulted Assessment/Plan Assessment/Plan Clinically improving. Continue IV diuresis for another 24 hours. Resume home health and monitor her overnight. Plantar discharge home tomorrow if she remains stable. Discussed with the patient regarding leg edema and need for diuretics at home. Plan discussed with: Patient, Other My Orders Orders - AWA MILTON MD Procedure Category Date Status Time Furosemide Injection PHA 11/17/24 In Process (Lasix Injection) 18:00 Potassium Er Tablet PHA 11/17/24 In Process (Klor-Con Tablet) 22:00 Cover Wound With Foam REX 11/17/24 In Process Dressing 11:50 * Dial Printer CONS 11/18/24 Transmitted Consult Problem List: (1) Generalized weakness (2) Lymphedema (3) Peripheral vascular disease (4) Bilateral lower extremity edema Date of Service: Nov 18, 2024 Billing Provider: AWA MILTON MD Common Visit Codes: [id number] INP/OBS CARE(MOD) AWA MILTON MD Nov 18, 2024 13:26
[2024-11-19 01:00] VITALS: BP 143/78; PULSE 54; RESP 19; TEMP 97.8; O2SAT 97
[2024-11-19 05:00] VITALS: BP 121/73; PULSE 50; RESP 20; TEMP 97.6; O2SAT 97
[2024-11-19 06:27] LABS: Anion Gap 10 (5-15); Carbon Dioxide 28 mmol/L (20-31); Chloride 99 mmol/L (98-107); Potassium 3.5 mmol/L (3.5-5.1); Sodium 137 mmol/L (136-145)
[2024-11-19 06:28] LABS: Calcium 9.6 mg/dL (8.7-10.4)
[2024-11-19 06:33] LABS: BUN/Creatinine Ratio 39.8 (10.0-20.0); Blood Urea Nitrogen 33 mg/dL (9-23); Glucose 106 mg/dL (74-106)
[2024-11-19] MEDS: ACETAMINOPHEN 325 MG TAB PO PRN (06:45)
[2024-11-19 08:00] VITALS: PULSE 58; PULSE 64; RESP 18; O2SAT 97
[2024-11-19 09:00] VITALS: BP 135/54; PULSE 58; RESP 18; TEMP 97.6; O2SAT 97
[2024-11-19 10:28] VITALS: BP_SYST 132; BP_SYST 135; BP_DIAS 54; BP_DIAS 57; PULSE 54; PULSE 74; RESP 14; RESP 18; TEMP 97.8; TEMP 98.2; O2SAT 96
[2024-11-19] MEDS ORDERED: ATOR20TA50 PO (11:45)
[2024-11-19] MEDS ORDERED: SPIR25TA8 PO (11:45)
[2024-11-19] MEDS ORDERED: FURO40TA4 PO (11:45)
--- NOTE | 2024-11-19 11:47 | DVHDS2 ---
Discharge Summary Date of Admission Nov 16, 2024 at 01:38 Date of Discharge: Nov 19, 2024 Labs/Diagnostic Data: Laboratory Results Test 11/19/24 05:14 11/17/24 08:03 11/17/24 05:18 11/16/24 13:26 Sodium Level 137 mmol/L (136-145) Potassium Level 3.5 mmol/L (3.5-5.1) Chloride Level 99 mmol/L (98-107) Carbon Dioxide Level 28 mmol/L (20-31) Anion Gap 10 (5-15) Blood Urea Nitrogen 33 mg/dL (9-23) Creatinine 0.83 mg/dL (0.550-1.02) Glomerular Filtration Rate Calc 75 mL/min (>90) BUN/Creatinine Ratio 39.8 (10.0-20.0) Serum Glucose 106 mg/dL (74-106) Calcium Level 9.6 mg/dL (8.7-10.4) White Blood Count 6.2 10^3/uL (4.4-10.8) Red Blood Count 4.72 10^6/uL (4.0-5.20) Hemoglobin 14.8 g/dL (12.2-16.2) Hematocrit 43.1 % (36.0-46.0) Mean Corpuscular Volume 91.3 fL (80.0-100.0) Mean Corpuscular Hemoglobin 31.4 pg (28.0-32.0) Mean Corpuscular Hemoglobin Concent 34.4 g/dL (32.0-36.0) Red Cell Distribution Width 14.2 % (11.8-14.3) Platelet Count 150 10^3/uL (140-450) Mean Platelet Volume 11.0 fL (6.9-10.8) Neutrophils (%) (Auto) 63.0 % (37.0-80.0) Lymphocytes (%) (Auto) 24.0 % (10.0-50.0) Monocytes (%) (Auto) 11.6 % (0.0-12.0) Eosinophils (%) (Auto) 0.9 % (0.0-7.0) Basophils (%) (Auto) 0.5 % (0.0-2.0) Neutrophils # (Auto) 3.9 10 ^3/uL (1.6-8.6) Lymphocytes # (Auto) 1.5 10 ^3/uL (0.4-5.4) Monocytes # (Auto) 0.7 10 ^3/uL (0-1.3) Eosinophils # (Auto) 0.1 10 ^3/uL (0-0.8) Basophils # (Auto) 0 10 ^3/uL (0-0.2) Nucleated Red Blood Cells 0.2 % Erythrocyte Sedimentation Rate 14 mm/hr (0-20) C-Reactive Protein High Sensitivity 0.25 mg/dL (<1.0) Total Bilirubin 0.3 mg/dL (0.2-1.0) Aspartate Amino Transferase (AST) 26 U/L (13-40) Alanine Aminotransferase (ALT) 16 U/L (7-40) Alkaline Phosphatase 83 U/L (46-116) Total Protein 5.8 g/dL (5.7-8.2) Albumin 3.9 g/dL (3.2-4.8) Thyroid Stimulating Hormone (TSH) 0.49 uIU/mL (0.55-4.78) Free Thyroxine (T4) Calculated 1.17 ng/dL (0.89-1.76) Test 11/16/24 10:00 11/15/24 22:11 Urine Color Yellow (Yellow) Urine Clarity Clear (Clear) Urine pH 5.0 (5.0-9.0) Urine Specific [place] 1.025 (1.001-1.035) Urine Protein Negative (Negative) Urine Ketones Negative (Negative) Urine Blood Negative /uL (Negative) Urine Nitrite Negative (Negative) Urine Bilirubin Negative (Negative) Urine Urobilinogen Normal mg/dL (Negative) Urine Leukocyte Esterase Negative /uL (Negative) Urine RBC 2 /hpf (0 - 4) Urine Microscopic WBC 4 /HPF (0-5) Urine Squamous Epithelial Cells Few /hpf (<5) Urine Bacteria None seen /hpf (None Seen) Urine Hyaline Casts Few /lpf (0 - 2) Urine Mucus Few (None Seen) Urine Glucose Normal mg/dL (Normal) Prothrombin Time 10.9 sec (9.3-11.8) Prothrombin Time INR 1.03 (0.9-1.15) Activated Partial Thromboplast Time 25.6 SEC (24.5-34.5) Lactic Acid Level 1.0 mmol/L (0.4-2.0) B-Type Natriuretic Peptide 124.33 pg/mL (0-100) Other Laboratory Tests 11/19/24 05:14 11/17/24 08:03 Brief Hx & Hospital Course: The patient is a 69-year-old female with past medical history of AFib, asthma, Coronary artery disease, CHF, hyperlipidemia, lymphedema, and hypertension who presented to [facility] with complaint of bilateral lower extremity pain. Patient reports she has been experiencing worsening swelling of the bilateral lower extremity, notes wound on the lateral aspect of right lower extremity, getting worse that prompted this visit. Patient states she underwent bilateral lower extremity arterial stent placement at an outpatient surgical center. She had 3 stents inserted in the right lower extremity and 1 in the left lower extremity. Patient was seen and evaluated in the ED, laboratory data shows WBC 6.9, platelets 156, sodium 142, potassium 3.7, BUN 19, creatinine 0.93, glucose 104, calcium 10.2, BNP 124.33, blood pressure 129/63, heart rate 64, temperature 98.5 F, O2 saturation 98% on room air. Extremity venous study shows no right or left femoropopliteal venous thrombosis. Please see medication orders section in the computer. On my assessment, patient denied chest pain, no headache, no dizziness, no shortness of breaths, no nausea, no vomiting, no fever, no chills. Patient was admitted for further evaluation and medical management. She is admitted and received IV diuretics for her leg swelling. Patient noted to have a chronic venous stasis. Her legs pain has improved post diuresis. Patient counseled and educated regarding oral fluid restriction and a elevating the legs when in bed as well as compliance with diuretic Lasix. While in the hospital she diuresed well and swelling has improved. Had an echocardiogram showed a mildly diastolic dysfunction. Otherwise overall patient remained clinically stable. Rest of her workup in the hospitalist normal. Therefore it is felt she could be safely discharged home with close outpatient follow up with primary care physician and referral to heart doctor as appropriate for further evaluation of her leg swelling and management of her diuretics. I have talked with the patient regarding this, talked to her about her hospital diagnosis, treatment he received, discharge medications, discharge instructions and follow- up plan of care. She has verbalized understanding of these and agree with the care plan as outlined. Operations or Procedures PROCEDURE(s): [facility] - ECHO 2D MODE CARDIAC DOP REASON: BRADYCARDIA ORDER NUMBER(s): [id number], ACCESSION NUMBER(s): [id number] APPROVED REPORT EXAM: Two-dimensional and M-mode echocardiogram with Doppler and color Doppler. Blood Pressure: 145/62 mmHg INDICATION Bradycardia RISK FACTORS Height: 5' 6", Weight: 184 DIMENSIONS LVDd 4.6 (3.8-5.7cm) LA (2D) 3.8 (1.9-4.0cm) Aortic Root 2.8 (2.0- 3.7cm) LVDs 3.2 (2.5-4.0cm) LA (MM) (1.9-4.0cm) Aortic Cusp Exc 1.4 (1.5- 2.0cm) EF (%) 57.0 (55-70%) Rt. Atrium 3.7 (1.9-4.0cm) Asc. Aorta cm IVSd 1.0 (0.7-1.1cm) RV (D) (1.8-2.4cm) PWd 0.8 (0.7-1.1cm) Mitral Valve Mitral Mitral Stenosis E wave 1.00m/s MV Mean GR. mmHg A wave 0.90m/s MV Peak GR. mmHg E/A ratio 1.1 2D MVA cm2 Aortic Valve Aortic Valve Aortic Stenosis V1 1.20m/s AO Mean GR. 11mmHg V2 2.30m/s AO Peak GR. 22mmHg LVOT Diameter 1.8 (1.8-2.4cm) Doppler ERMA 1.33cm2 AI P 1/2 Time 710.65ms Pulmonic Valve V2 1.00m/s Tricuspid Valve TR Velocity 2.10m/s RVSP 22mmHg Conclusion Left ventricle: Left ventricle was normal-sized with normal systolic function. LVEF was 55-60%. There was no wall motion abnormality. Diastolic function was considered normal. Right ventricle was normal-sized with normal systolic function. Both atria were normal-sized. Aortic valve was not well visualized. There was [id number] aortic insufficiency. There was no aortic stenosis. There was trace mitral regurgitation. There was mild tricuspid regurgitation. Pulmonary valve was not well visualized. Trace pulmonary valve insufficiency was seen. Right ventricular systolic pressure was assessed normal at 34 Hg. There was no pericardial effusion SIGNED BY: ROSEANN SMART MD SIGNED DATE/TIME: 11/16/241918 Condition at Discharge: Stable Final Diagnosis/Problems List Acute on chronic congestive heart failure with diastolic dysfunction, bilateral lower extremity swelling, dyslipidemia, hypertension, physical deconditioning Discharge Disposition: Home Discharge Instruct/Medications Diet: Consistent carbohydrate, Cardiac 2g Na,low cholest Diet comment: To limit your oral fluid intake to 1500 mL per 24 hours due to leg swelling. Activity: No Restrictions, As Tolerated Follow Up/Referral: Your family doctor next week and referral to her doctor/lesson instructor for leg swelling and further management Medications: Take medications as prescribed and other medications for home discharge med reconciliation list Scheduled Atorvastatin Calcium (Atorvastatin Calcium), 20 MG PO HS Furosemide (Furosemide), 1 TAB PO DAILY Rosuvastatin Calcium (Rosuvastatin Calcium), 1 TAB PO DAILY, (Reported) Spironolactone (Spironolactone), 1 TAB PO DAILY Tramadol Hcl (Tramadol Hcl), 1-2 TAB PO BID PRN, (Reported) Scheduled PRN Gabapentin (Once-Daily) (Gabapentin), 300 MG PO Q6HP PRN Hydrocodone-Acetaminophen (Hydrocodone Bitartrate/AC 10-325 mg), 1 TAB PO Q8HP PRN Discontinued Medications Amoxicillin & Pot Clavulanate (Augmentin Tablet), 875 MG PO BID Cephalexin (Keflex Capsule), 1 CAP PO QID Doxycycline (Monohydrate) (Doxycycline), 100 MG PO BID Ibuprofen (Ibuprofen), 1 TAB PO Q6HP PRN Nifedipine (Nifedipine Er), 1 TAB PO DAILY, (Reported) Olmesartan Medoxomil (Olmesartan Medoxomil), 1 TAB PO DAILY@9, (Reported) Discharge Statement: "Patient was advised to return to the ER or call 911 if any headaches, dizziness, shortness of breath, chest pain, abdominal pain, bleeding, fevers, or worsening of medical condition. Patient was counseled about treatment plan, medications, possible side effects, patientverbalized understanding. All questions were answered to the best of my ability. This discharge took greater then 30 minutes in planning, reviewing documentation, counseling the patient, and discussing with other team members." ASSESSMENT ASSESSMENT Assessment Acute on chronic congestive heart failure with diastolic dysfunction, bilateral lower extremity swelling, dyslipidemia, hypertension, physical deconditioning Date of Service: Nov 19, 2024 Billing Provider: AWA MILTON MD Common Visit Codes: 31216-LKE/OBS DISCH DAY <30MIN AWA MILTON MD Nov 19, 2024 11:47
[2024-11-19 13:00] VITALS: BP 132/57; PULSE 54; RESP 18; TEMP 97.8; O2SAT 96
== END 2024-11-19 16:15 | disposition home health service (06) | DRG 291 ==
LOC: EDBD 21:35 → ER 21:35 → EDUNIT# 21:35 → OVERFLOW 11-16 01:38 → CENTRAL 11-16 14:46 → TELE-WESTW 11-16 20:34
PROVIDERS: ADMIT Hospitalist; ATTEND Hospitalist
DX: I11.0 Hypertensive heart disease with heart failure (principal); I50.33 Acute on chronic diastolic (congestive) heart failure; L03.115 Cellulitis of right lower limb; L03.116 Cellulitis of left lower limb; I73.9 Peripheral vascular disease, unspecified; I89.0 Lymphedema, not elsewhere classified; E78.5 Hyperlipidemia, unspecified; I25.10 Atherosclerotic heart disease of native coronary artery without angina pectoris; I87.8 Other specified disorders of veins; I48.91 Unspecified atrial fibrillation; I35.1 Nonrheumatic aortic (valve) insufficiency; J45.909 Unspecified asthma, uncomplicated; G80.9 Cerebral palsy, unspecified; Z88.1 Allergy status to other antibiotic agents; Z79.2 Long term (current) use of antibiotics; Z79.1 Long term (current) use of non-steroidal anti-inflammatories (NSAID); Z79.899 Other long term (current) drug therapy; Z82.49 Family history of ischemic heart disease and other diseases of the circulatory system; Z80.52 Family history of malignant neoplasm of bladder
CPT/HCPCS: 36415; 80048; 80053; 81001; 83605; 83880; 84439; 84443; 85025; 85610; 85652; 85730; 86141; 87040; 93005; 93306; 93970; 96374; 96376; 97116; 97163; 97530; G0378

== ENCOUNTER 2024-11-29 07:12 | Inpatient (IN) | payer OTHER ==
[~2024-11-29] VITALS: Ht 165.1 cm; Wt 84.6 kg
[2024-11-29] VITALS (8 sets, daily range): BP systolic 95–130; BP diastolic 50–66; PULSE 46–127; RESP 13–18; TEMP 97.4–98.1; O2SAT 97–100
[~2024-11-29 07:12] MED LIST changes: +ATOR20TA50 PO; -AUG875T PO; -CEPH250C PO; -DOXY100C79 PO; +FURO40TA4 PO; -IBUP-1454 PO; -NIFE1TAB30 PO; -OLME40TA76 PO
--- NOTE | 2024-11-29 07:23 | ED.PDOC ---
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 Patient reports that she started to experience left sided chest pain with associated generalized weakness and worsening bilateral leg swelling about an hour ago. EMS relays that the patient's EKG showed A-Fib with RVR. Patient denies any SOB, dizziness, headache, N/V, abdominal pain, or numbness. Chief Complaint: Chest Pain Time Seen by MD: 07:21 Primary Care Provider: Luis Felipe Avilez Reviewed Notes: Nurses Notes, [employer] Notes, Medications, Allergies Allergies: Coded Allergies: Sulfa Antibiotics (Verified Allergy, Unknown, 11/25/23) Amlodipine (Unverified Adverse Reaction, Unknown, 07/10/24) Peripheral edema Home Meds Active Scripts Furosemide (Furosemide) 40 Mg Tab, 1 TAB PO DAILY, #90 TAB 1 Refill Prov:AWA MILTON MD 11/19/24 Atorvastatin Calcium (ATORVASTATIN CALCIUM) 20 Mg Tab, 20 MG PO HS, #60 TAB Prov:AWA MILTON MD 11/19/24 Spironolactone (Spironolactone) 25 Mg Tab, 1 TAB PO DAILY, #60 TAB Prov:AWA MILTON MD 11/19/24 Hydrocodone-Acetaminophen (Hydrocodone Bitartrate/AC 10-325 mg) 1 Tab Tab, 1 TAB PO Q8HP PRN, #15 TAB Prov:ROSEANN LÓPEZ PAC 10/25/24 Gabapentin (Once-Daily) (Gabapentin) 300 Mg Tab, 300 MG PO Q6HP PRN, #90 TAB 3 Refills Prov:JENNY ALAMO MD 10/18/24 Reported Medications Tramadol Hcl (Tramadol Hcl) 50 Mg Tab, 1-2 TAB PO BID PRN for 30 Days, #120 08/01/24 Rosuvastatin Calcium (Rosuvastatin Calcium) 40 Mg Tab, 1 TAB PO DAILY for 90 Days, #90 06/10/24 Information Source: Patient, Emergency Med Personnel Mode of Arrival: EMS Severity: Moderate Timing: Hours Duration: Since onset Prehospital treatment: None Location: Chest (L) Quality: Sharp Onset: At Rest Cardiac Risk Factors: Hyperlipidemia, HTN PE Risk Factors: None History of: Similar pain in past Associated Signs and Symptoms: Calf Swelling Past Medical History PAST MEDICAL HISTORY: AFIB, Asthma, CAD, CHF, High Lipids, HTN Surgical History: Denies all surgeries TEAM DRIVER History: No Pertinent TEAM DRIVER History Family History Family History: Reviewed,noncontributory to illness, Unknown Social History Smoker: Non-Smoker Alcohol: Denies ETOH Use Drugs: Denies Drug Use Lives In: Home Constitutional: reports: weakness; denies: chills, diaphoresis, fatigue, fever, malaise, sweats, others EENTM: denies: blurred vision, double vision, ear bleeding, ear discharge, ear drainage, ear pain, ear ringing, eye pain, eye redness, hearing loss, mouth pain, mouth swelling, nasal discharge, nose bleeding, nose congestion, nose pain, photophobia, tearing, throat pain, throat swelling, voice changes, others Respiratory: denies: cough, hemoptysis, orthopnea, SOB at rest, shortness of breath, SOB with excertion, stridor, wheezing, others Cardiovascular: reports: chest pain, edema; denies: dizzy spells, diaphoresis, Dyspnea on exertion, irregular heart beat, left arm pain, lightheadedness, palpitations, PND, syncope, others Gastrointestinal: denies: abdomen distended, abdominal pain, blood streaked bowels, constipated, diarrhea, dysphagia, difficulty swallowing, hematemesis, melena, nausea, poor appetite, poor fluid intake, rectal bleeding, rectal pain, vomiting, others Genitourinary: denies: abnormal vagina bleeding, burning, dyspareunia, dysuria, flank pain, frequency, hematuria, incontinence, pain, , vagina di scharge, urgency, others Neurological: denies: dizziness, fainting, headache, left sided numbness, left sided weakness, numbness, paresthesia, pre-existing deficit, right sided numbness, right sided weakness, seizure, speech problems, tingling, tremors, weakness, others Musculoskeletal: denies: back pain, gout, joint pain, joint swelling, muscle pain, muscle stiffness, neck pain, others Integumetry: denies: bruises, change in color, change in hair/nails, dryness, laceration, lesions, lumps, rash, wounds, others Allergic/Immunocompromised: denies: Difficulty Healing, Frequent Infections, Hives, Itching, others Hematologic/Lymphatic: denies: anemia, blood clots, easy bleeding, easy bruising, swollen glands, others Endocrine: denies: excessive hunger, excessive sweating, excessive thirst, excessive urination, flushing, intolerance to cold, intolerance to heat, unexplained weight gain, unexplained weight loss, others Psychiatric: denies: anxiety, bipolar disorder, depression, hopeless, panic disorder, schizophrenia, sleepless, suicidal, others All Other Systems: Reviewed and Negative Physical Exam General Appearance: Moderate Distress, Normal HEENT: Normal ENT Inspection, Pharynx Normal, TMs Normal Neck: Full Range of Motion, Non-Tender, Normal, Normal Inspection Respiratory: Chest Non-Tender, Lungs Clear, No Accessory Muscle Use, No Respiratory Distress, Normal Breath Sounds Cardiovascular: Irregular, No Edema, No JVD, No Murmur, No Gallop, Normal Peripheral Pulses, Tachycardia Breast Exam: Deferred Gastrointestinal: No Organomegaly, Non Tender, No Pulsatile Mass, Normal Bowel Sounds, Soft Genitalia: Deferred Pelvic: Deferred Rectal: Deferred Extremities: No calf tenderness, Normal capillary refill, Normal range of reese on, Non-tender, No pedal edema, Swelling (Bilateral lower extremity) Musculoskeletal : Apperance: Normal Neurologic: Alert, web merchant II-XII nml as Tested, No Motor Deficits, Normal Affect, Normal Mood, No Sensory Deficits Cerebellar Function: NOT DONE Reflexes: NOT DONE Skin: Dry, Normal Color, Warm Peripheral Pulses: 3+ Radial (R), 3+ Radial (L) Lymphatic: No Adenopathy EKG EKG : Pulse Rate (adult): 113 [place]: Normal Cardiac Rhythm: Afib Block: None Hypertrophy: None ST: Normal Was a procedure done? Was a procedure done?: No CP Differential Dx Differential Diagnosis: A-fib, A-Flutter, Angina, Anxiety / Panic Attack, Atrial Dysrhythmia, Electrolyte Disorder X-Ray, Labs, Meds, VS Vital Signs Date Time Temp Pulse Resp B/P (MAP) Pulse Ox O2 Delivery O2 Flow Rate FiO2 11/29/24 07:23 113 11/29/24 07:14 98.1 120 18 132/79 (96) 95 98.1 Patient alert. He does have atrial fibrillation. Saturation pristine on room air. Vitals stable. She is comfortable. Answering questions pain Chronic bilateral lower extremity swelling. Reviewed her previous visit. Was given aspirin. Explained to the patient. Continue to monitor. Time of 1ST Reevaluation: 08:17 Reevaluation 1ST: Unchanged Patient Education/Counseling: Diagnosis, Treatment Family Education/Counseling: No Family Present Additional Information Previous visits reviewed: 11/16/24 for bilateral lower extremity edema The following tests were ordered, and results were reviewed by me: CBC, BMP, Troponin, EKG, Chest XR Additional Information was gathered from interviewing the following independent historians: EMS I reviewed and agreed with the following test results read by other providers: Chest XR I discussed treatment and results with medical personnel and: patient Comprehensive systems review obtained and negative except for what is stated in the HPI. SEPSIS Sepsis Screen Physician Orders Complete Blood Count (11/29/24 07:21) Chest Portable (11/29/24 07:21) Urinalysis (11/29/24 07:21) Troponin-I Hs (11/29/24 07:21) Troponin-I Hs (11/29/24 08:21) Troponin-I Hs (11/29/24 10:21) Basic Metabolic Panel (11/29/24 07:21) Electrocardigram (11/29/24 07:22) Electrocardigram (11/29/24 08:22) Electrocardigram (11/29/24 10:22) Vital Signs Date Time Temp Pulse Resp B/P (MAP) Pulse Ox O2 Delivery O2 Flow Rate FiO2 11/29/24 07:23 113 11/29/24 07:14 98.1 120 18 132/79 (96) 95 98.1 Departure 1 Departure Time of Disposition: 07:25 Impression: Primary Impression: Atrial fibrillation Qualified Codes: I48.0 - Paroxysmal atrial fibrillation Disposition: 09 ADMITTED INPATIENT Admit to: Med Surg Condition: Guarded Critical Care Note Critical Care Time?: Yes (90 min-critical care time only) Stability Stability form required: No Heart Score Heart Score: Heart Score Response (Comments) Value History Highly Suspicious 2 EKG Normal 0 Age >65 2 Risk Factors >3 or Hx ASHD 2 Troponin Normal limit 0 Total 6 I personally scribed for SHAGGY DEVRIES MD ([email or web address]) on 11/29/24 at 07:22. Electronically submitted by Mitchell Bradshaw ([email or web address]). SHAGGY DEVRIES MD Nov 29, 2024 07:22
[2024-11-29 08:02] LABS: Hematocrit 44.1 % (36.0-46.0); Hemoglobin 15.0 g/dL (12.2-16.2); Mean Corpuscular Hemoglobin 31.4 pg (28.0-32.0); Mean Corpuscular Volume 92.3 fL (80.0-100.0); Nucleated Red Blood Cells % 0.1 %
--- NOTE | 2024-11-29 08:13 | DVH ---
EXAM: XR Chest, 1 View CLINICAL INDICATION: Pain TECHNIQUE: Frontal view of the chest. COMPARISON: No relevant prior studies available. FINDINGS: LUNGS AND PLEURAL SPACES: Right basilar atelectasis or pneumonia. No pneumothorax. HEART: Unremarkable. No cardiomegaly. MEDIASTINUM: Unremarkable. Normal mediastinal contour. BONES/JOINTS: Unremarkable. No acute fracture. IMPRESSION: Right basilar atelectasis or pneumonia.
[2024-11-29 08:18] LABS: Potassium 3.6 mmol/L (3.5-5.1); Sodium 144 mmol/L (136-145)
[2024-11-29 08:19] LABS: Anion Gap 13 (5-15); Carbon Dioxide 21 mmol/L (20-31)
[2024-11-29 08:20] LABS: Calcium 10.0 mg/dL (8.7-10.4)
[2024-11-29] MEDS: AMIODARONE BOLUS KIT 100 ML IV ONE (08:20)
[2024-11-29 08:23] LABS: Chloride 110 mmol/L (98-107)
[2024-11-29 08:24] LABS: BUN/Creatinine Ratio 23.7 (10.0-20.0); Blood Urea Nitrogen 18 mg/dL (9-23); Glucose 86 mg/dL (74-106)
[2024-11-29] MEDS: AMIODARONE 360mg/200mL PREMIX 200 ML IV ONE (08:31)
[2024-11-29] MEDS ORDERED: SPIRONOLACTONE 25 MG TAB PO SCH (10:00)
[2024-11-29] MEDS ORDERED: GAB100C PO (10:02)
[2024-11-29] MEDS ORDERED: OLME20TA67 PO (10:02)
[2024-11-29] MEDS ORDERED: ACETAMINOPHEN 325 MG TAB PO PRN (10:15)
[2024-11-29] MEDS ORDERED: NITROGLYCERIN 0.4 MG SL TAB SL PRN (10:15)
[2024-11-29] MEDS ORDERED: DOCUSATE SOD 100 MG CAP PO PRN (10:15)
[2024-11-29] MEDS ORDERED: MORPHINE SULFATE INJ 2 MG/ml SYRG IV PRN (10:15)
[2024-11-29] MEDS ORDERED: ONDANSETRON HCL 4 MG/2 ML VIAL IV PRN (10:15)
--- NOTE | 2024-11-29 10:33 | DVHHP2 ---
History of Present Illness Reason for Visit: Chest pain History of Present Illness Queenie Cheng is a 69-year-old female with past medical history of CHF, CAD, hypertension, hyperlipidemia, and lymphedema, who came to the hospital for chest pain. Patient states she woke up this morning with chest pain and feeling off. She was trying to move around her house to eat and take her morning medications but was unable to because she was feeling so bad. Patient has been hospitalized frequently within the last few months for chest pain. She had an ECHO completed on her last admission that showed an EF of 60%. She states that she does not recall ever being diagnosed with atrial fibrillation or an irregular heart rhythm prior. She is not on any home medications to treat atrial fibrillation at this time. Cardiovascular: CAD, CHF, HTN, hyperipidemia Heme/Onc: Other (bilateral lower extremities hyperlipidemia) Past Surgical History: Other (bilateral feet) Smoke: No ALCOHOL: none Drugs: None Lives: Alone Domestic Violence: Neg Review of Systems Constitutional: No: Fever, Chills, Sweats, Weakness, Malaise, Other Eyes: No: Pain, Vision change, Conjunctivae inflammation, Eyelid inflammation, Other, Redness ENT: No: Ear pain, Ear discharge, Nose pain, Nose discharge, Nose congestion, Mouth pain, Mouth swelling, Throat pain, Throat swelling, Other Respiratory: No: Cough, Dry, Shortness of breath, SOB with excertion, Wheezing, Hemoptysis, Pleuritic Pain, Sputum, Wheezing, Other Cardiovascular: Chest Pain, Palpitations, Lt Headedness; No: Orthopnea, Paroxysmal Noc. Dyspnea, Edema, Other Gastrointestinal: No: Nausea, Vomiting, Abdominal Pain, Diarrhea, Constipation, Melena, Hematochezia, Other Genitourinary: No Dysuria, No Frequency, No Incontinence, No Hematuria, No Retention, No Other Musculoskeletal: No: other, neck pain, shoulder pain, arm pain, back pain, hand pain, leg pain, foot pain Skin: No: Rash, Lesions, Jaundice, Bruising, Other Neurological: No: Weakness, Numbness, Incoordination, Change in speech, Confusion, Seizures, Other Allergies: Coded Allergies: Sulfa Antibiotics (Verified Allergy, Unknown, 11/25/23) Amlodipine (Unverified Adverse Reaction, Unknown, 07/10/24) Peripheral edema Medications Current Medications Medications Dose Ordered Sig/Alfonso Route Start Time Stop Time Status Last Admin Dose Admin Atorvastatin Calcium 20 mg HS PO 11/29/24 22:00 UNV Spironolactone 25 mg DAILY PO 11/29/24 10:00 UNV Exam Vital Signs Vital Signs Date Time Temp Pulse Resp B/P (MAP) Pulse Ox O2 Delivery O2 Flow Rate FiO2 11/29/24 08:31 76 11/29/24 08:01 14 97 Room Air* 0 21 11/29/24 07:30 96.9 130/66 (87) 96.9 General Appearance: Alert, Oriented X3, Cooperative, mild distress HEENT: Atraumatic, PERRLA Respiratory: Clear to auscultation, Normal air movement Cardiovascular: Other (A-Fib RVR) Abdominal: Normal bowel sounds, Soft, No tenderness, No hepatospenomegaly Extremities: No clubbing, No cyanosis, Other (bilateral lower extremity edema, H/O lymphedema) Skin: No rashes, No breakdown, No significant lesion Neuro: Normal speech, Other (Mostly wheelchair bound at baseline) Psych/Mental Status: Mental status NL, Mood NL Labs/Xrays Labs Test 11/29/24 10:00 11/29/24 07:41 Range/Units White Blood Count 6.2 4.4-10.8 10^3/uL Red Blood Count 4.77 4.0-5.20 10^6/uL Hemoglobin 15.0 12.2-16.2 g/dL Hematocrit 44.1 36.0-46.0 % Mean Corpuscular Volume 92.3 80.0-100.0 fL Mean Corpuscular Hemoglobin 31.4 28.0-32.0 pg Mean Corpuscular Hemoglobin Concent 34.0 32.0-36.0 g/dL Red Cell Distribution Width 14.3 11.8-14.3 % Platelet Count 190 140-450 10^3/uL Mean Platelet Volume 11.0 H 6.9-10.8 fL Neutrophils (%) (Auto) 62.9 37.0-80.0 % Lymphocytes (%) (Auto) 27.4 10.0-50.0 % Monocytes (%) (Auto) 8.6 0.0-12.0 % Eosinophils (%) (Auto) 0.8 0.0-7.0 % Basophils (%) (Auto) 0.3 0.0-2.0 % Neutrophils # (Auto) 3.9 1.6-8.6 10 ^3/uL Lymphocytes # (Auto) 1.7 0.4-5.4 10 ^3/uL Monocytes # (Auto) 0.5 0-1.3 10 ^3/uL Eosinophils # (Auto) 0.1 0-0.8 10 ^3/uL Basophils # (Auto) 0 0-0.2 10 ^3/uL Nucleated Red Blood Cells 0.1 % Sodium Level 144 136-145 mmol/L Potassium Level 3.6 3.5-5.1 mmol/L Chloride Level 110 H 98-107 mmol/L Carbon Dioxide Level 21 20-31 mmol/L Anion Gap 13 5-15 Blood Urea Nitrogen 18 9-23 mg/dL Creatinine 0.76 0.550-1.02 mg/dL Glomerular Filtration Rate Calc 84 >90 mL/min BUN/Creatinine Ratio 23.7 H 10.0-20.0 Serum Glucose 86 74-106 mg/dL Calcium Level 10.0 8.7-10.4 mg/dL EXAM: XR Chest, 1 View FINDINGS: LUNGS AND PLEURAL SPACES: Right basilar atelectasis or pneumonia. No pneumothorax. HEART: Unremarkable. No cardiomegaly. MEDIASTINUM: Unremarkable. Normal mediastinal contour. BONES/JOINTS: Unremarkable. No acute fracture. IMPRESSION: Right basilar atelectasis or pneumonia. SEPSIS Sepsis Screen Date sepsis recognized/suspect: Nov 29, 2024 Time Sepsis recognized/suspect: 713 Recent Procedure: No On Antibiotic Therapy: No Respiratory Rate >20: No Heart Rate >90: No Temp<36 C (96.8 F) or >38.3 C: No SBP <90 or MAP <65 mmHG: No New Acute Mental Status Change: No Is the patient on CPAP, BIPAP,: No Physician Orders Chest Portable (11/29/24 07:21) Urinalysis (11/29/24 07:21) Troponin-I Hs (11/29/24 08:21) Troponin-I Hs (11/29/24 10:21) Electrocardigram (11/29/24 07:22) Electrocardigram (11/29/24 08:22) Electrocardigram (11/29/24 10:22) Amiodarone 360mg/200ml Premix (Nexterone (11/29/24 07:45) Atorvastatin (Lipitor) (11/29/24 22:00) Spironolactone (Aldactone) (11/29/24 10:00) Admit (11/29/24 10:02) Code Status (11/29/24 10:02) Hydrocodone-Acet 5/325mg Tab (Thicket 5/32 (11/29/24 10:15) Ondansetron Hcl (Zofran) (11/29/24 10:15) Docusate Sodium Capsule (Colace Capsule) (11/29/24 10:15) Fall Risk Precautions In Place QSHIFT (11/29/24 10:02) Complete Blood Count (11/30/24 04:00) Comprehensive Metabolic Panel (11/30/24 04:00) Cardiac Diet-2gna,Lofat,Lochol (11/29/24 Lunch) Condition: Serious (11/29/24 10:02) Acetaminophen Tablet (Tylenol Tablet) (11/29/24 10:15) Nitroglycerin Sublingual (Ntrostat Subli (11/29/24 10:15) Morphine Sulfate Injection (11/29/24 10:15) Stat Ekg For Chest Pain (11/29/24 10:02) Notify Md Of Changes From Base (11/29/24 10:02) Fisher Diving For 24 Hours (11/29/24 10:02) Emergency Dysrhythmia Protocol (11/29/24 10:02) Rhythm Strips Once Every Shift (11/29/24 10:02) Oxygen By Nasal Cannula (11/29/24 10:02) * Cardiology Consult (11/29/24 10:02) Gabapentin Capsule (Neurontin Capsule) (11/29/24 14:00) (Nf) Olmesartan Medoxomil (11/30/24 10:00) Vital Signs Date Time Temp Pulse Resp B/P (MAP) Pulse Ox O2 Delivery O2 Flow Rate FiO2 11/29/24 08:31 76 11/29/24 08:01 127 14 97 Room Air* 0 21 11/29/24 07:30 96.9 127 14 130/66 (87) 97 96.9 11/29/24 07:23 113 11/29/24 07:16 113 11/29/24 07:14 98.1 120 18 132/79 (96) 95 98.1 Laboratory Tests Test 11/29/24 07:41 White Blood Count 6.2 10^3/uL (4.4-10.8) Medications Medications Dose Ordered Sig/Alfonso Route Start Time Stop Time Status Last Admin Dose Admin Amiodarone HCl 100 ml @ 600 mls/hr ONCE ONCE IV 11/29/24 07:30 11/29/24 07:39 DC 11/29/24 08:20 600 MLS/HR Assessment/Plan Assessment/Plan Assessment: Atrial fibrillation with RVR, Possible pneumonia, CHF, Hypertension, Hyperlipemia, Plan: Admit to Tele, Cardiology consult, IV amiodarone, IV antibiotics, Consider blood thinner if patient unable to convert to SR, Breathing treatments as needed, Supplemental oxygen as needed, Home medications reconciled, Plan discussed with: Patient My Orders Orders - TAQUERIA KAY MEDICAL DIRECTOR Procedure Category Date Status Time Atorvastatin (Lipitor) PHA 11/29/24 Logged 22:00 Spironolactone PHA 11/29/24 Logged (Aldactone) 10:00 Admit ADMIT 11/29/24 Verified 10:02 Code Status CODE 11/29/24 Verified 10:02 Hydrocodone-Acet [facility] 11/29/24 Verified 5/325mg Tab (Thicket 10:15 Ondansetron Hcl [facility] 11/29/24 Verified (Zofran) 10:15 Docusate Sodium [facility] 11/29/24 Verified Capsule (Colace 10:15 Fall Risk Precautions [facility] 11/29/[address] 10:02 Complete Blood Count LAB 11/30/24 Verified 04:00 Comprehensive LAB 11/30/24 Verified Metabolic Panel 04:00 Cardiac DIET 11/29/24 Verified Diet-2gna,Lofat,Lochol Lunch Condition: Serious [facility] 11/29/24 Verified 10:02 Acetaminophen Tablet [facility] 11/29/24 Verified (Tylenol Tablet) 10:15 Nitroglycerin PHA 11/29/24 Verified Sublingual (Ntrostat 10:15 Morphine Sulfate PHA 11/29/24 Verified Injection 10:15 Stat Ekg For Chest [facility] 11/29/24 Verified Pain 10:02 Notify Of Changes [facility] 11/29/24 Verified From Base 10:02 Fisher Diving For [facility] 11/29/24 Verified 24 Hours 10:02 Emergency Dysrhythmia [facility] 11/29/24 Verified Protocol 10:02 Rhythm Strips Once REX 11/29/24 Verified Every Shift 10:02 Oxygen By Nasal RT 11/29/24 Verified Cannula 10:02 * Cardiology Consult CONS 11/29/24 Verified 10:02 Gabapentin Capsule PHA 11/29/24 Verified (Neurontin Capsule) 14:00 (Nf) Olmesartan PHA 11/30/24 Verified Medoxomil 10:00 Date of Service: Nov 29, 2024 Billing Provider: TAQUERIA KAY Common Visit Codes: [id number] INP/OBS CARE (MOD) TAQUERIA KAY Nov 29, 2024 10:33
[2024-11-29 11:10] LABS: Urine Protein, UAD Negative (Negative)
[2024-11-29] MEDS: GABAPENTIN 100 MG CAP PO SCH (13:31)
[2024-11-29] MEDS: AZITHROMYCIN 500MG/ 250ML 250 ML IV ONE (14:42)
[2024-11-29] MEDS: IPRATROPIUM BROM 0.5 MG/2.5ML INH SOL NEB PRN (19:56)
[2024-11-29] MEDS: ALBUTEROL SULF 2.5 MG/0.5ML(0.5%) NEB SOLN NEB PRN (19:56)
[2024-11-29] MEDS: ATORVASTATIN 20 MG TAB PO SCH (21:13)
[2024-11-30] VITALS (11 sets, daily range): BP systolic 105–133; BP diastolic 50–67; PULSE 47–52; RESP 16–20; TEMP 96.5–97.7; O2SAT 95–100
--- NOTE | 2024-11-30 01:49 | ECG ---
[facility] Test Date: 2024-11-29 Test Time: 07:16:25 Pat Name: NASIR ROSARIO Department: ED Room: [facility]3T Gender: F Manager Of Operations: TIFFANIE : 1955 Requested By: SHAGGY DEVRIES Order Number: [id number] Reading MD: Measurements Intervals [place] Rate: 113 P: 0 VT: 0 QRS: -12 QRSD: 88 T: 65 QT: 338 QTc: 464 Interpretive Statements Atrial fibrillation RSR' in V1 or V2, right VCD or RVH Left ventricular hypertrophy Please click the below link to view image of tracing.
--- NOTE | 2024-11-30 01:49 | ECG ---
[facility] Test Date: 2024-11-29 Test Time: 08:23:39 Pat Name: NASIR ROSARIO Department: ED Room: [facility]3T Gender: F Health Science Writer: TIFFANIE : 1955 Requested By: SHAGGY DEVRIES Order Number: [id number] Reading MD: Measurements Intervals [place] Rate: 76 P: 0 [place]: 0 QRS: 13 QRSD: 96 T: 64 QT: 384 QTc: 432 Interpretive Statements Atrial fibrillation Ventricular premature complex Left ventricular hypertrophy Please click the below link to view image of tracing.
[2024-11-30] MEDS: HYDROcodone-ACET 5/325MG TAB PO PRN (05:04)
[2024-11-30 08:12] LABS: Alanine Aminotransferase 18 U/L (7-40); Alkaline Phosphatase 71 U/L (46-116); Anion Gap 12 (5-15); BUN/Creatinine Ratio 26.9 (10.0-20.0); Blood Urea Nitrogen 21 mg/dL (9-23); Calcium 9.5 mg/dL (8.7-10.4); Carbon Dioxide 23 mmol/L (20-31); Glucose 96 mg/dL (74-106); Potassium 4.2 mmol/L (3.5-5.1); Sodium 144 mmol/L (136-145)
[2024-11-30 08:13] LABS: Albumin 3.7 g/dL (3.2-4.8); Chloride 109 mmol/L (98-107); Total Protein 5.4 g/dL (5.7-8.2)
[2024-11-30 08:14] LABS: Bilirubin, Total 0.3 mg/dL (0.2-1.0)
[2024-11-30 08:22] LABS: Hematocrit 40.6 % (36.0-46.0); Hemoglobin 13.6 g/dL (12.2-16.2); Mean Corpuscular Hemoglobin 31.3 pg (28.0-32.0); Mean Corpuscular Volume 93.0 fL (80.0-100.0); Nucleated Red Blood Cells % 0.0 %
[2024-11-30] MEDS: SPIRONOLACTONE 25 MG TAB PO SCH (10:09)
[2024-11-30] MEDS: AZITHROMYCIN 500MG/ 250ML 250 ML IV SCH (10:11)
[2024-11-30] MEDS: LOSARTAN POTASSIUM 50 MG TAB PO SCH (10:11)
--- NOTE | 2024-11-30 11:17 | DVHINCON2 ---
Date Seen: Nov 30, 2024 Referring Physician JESUS Smith Reason for Consultation Afib with RVR History of Present Illness 69-year-old female with a complex cardiac history presents to the emergency department with chest pain and palpitations. The patient reports waking up yesterday morning with chest discomfort described as pressure-like, associated with general feeling of being unwell and episodes of palpitations. She att empted to go about her routine, including eating and moving around her home, but was unable to do so due to persistent symptoms. In the emergency department, she was found to be in atrial fibrillation with rapid ventricular response and was started on amiodarone drip. Her initial 12 lead ECG confirmed AFib with RVR at a rate of 113 beats per minute and signs of left ventricular hypertrophy. On assessment, the patient converted to normal sinus rhythm with a controlled rate. Labs reveal a TSH of 0.51, which is low normal but could suggest subclinical contribution to arrhythmia. The patient has known diastolic heart failure, CAD, hypertension, hyperlipidemia, asthma, chronic lymphedema, and obesity. She is currently followed by chief of anesthesiology Dr. Jang and underwent a left heart catheterization on , which showed widely patent coronary arteries. At that time, she was advised to pursue aggressive risk factor modification and medical therapy. Past Medical History As stated in HPI Past Surgical History Left heart catheterization Family History: Cardiovascular disease G8 MOTHER (GALLBLADDER STONES), , Age: 90, Onset:60 years & older (had cancer but mother from gallbladder per patient) family hx1, , Age: 95, Onset:60 years & older (heart attack) FHx: bladder cancer G8 MOTHER (GALLBLADDER STONES), , Age: 90, Onset:60 years & older Family History Reviewed, non-contributory to the management of this case. Social History The patient lives at home, denies smoking, alcohol or illicit drugs abuse. Allergies: Coded Allergies: Sulfa Antibiotics (Verified Allergy, Unknown, 11/25/23) Amlodipine (Unverified Adverse Reaction, Unknown, 07/10/24) Peripheral edema Uncoded Allergies: Gauze (Allergy, Intermediate, 11/29/24) Per patient, causes skin to darken red. Informed to refuse gauze. Home Meds Active Scripts Furosemide (Furosemide) 40 Mg Tab, 1 TAB PO DAILY, #90 TAB 1 Refill Prov:AWA MILTON MD 11/19/24 Atorvastatin Calcium (ATORVASTATIN CALCIUM) 20 Mg Tab, 20 MG PO HS, #60 TAB Prov:AWA MILTON MD 11/19/24 Spironolactone (Spironolactone) 25 Mg Tab, 1 TAB PO DAILY, #60 TAB Prov:AWA MILTON MD 11/19/24 Reported Medications Olmesartan Medoxomil (Olmesartan Medoxomil) 20 Mg Tab, 1 TAB PO DAILY 11/29/24 Gabapentin (Gabapentin) 100 Mg Cap, 100 MG PO TID 11/29/24 Tramadol Hcl (Tramadol Hcl) 50 Mg Tab, 1-2 TAB PO BID PRN for 30 Days, #120 08/01/24 Discontinued Reported Medications Rosuvastatin Calcium (Rosuvastatin Calcium) 40 Mg Tab, 1 TAB PO DAILY for 90 Days, #90 06/10/24 Discontinued Scripts Hydrocodone-Acetaminophen (Hydrocodone Bitartrate/AC 10-325 mg) 1 Tab Tab, 1 TAB PO Q8HP PRN, #15 TAB Prov:ROSEANN LÓPEZ PAC 10/25/24 Gabapentin (Once-Daily) (Gabapentin) 300 Mg Tab, 300 MG PO Q6HP PRN, #90 TAB 3 Refills Prov:JENNY ALAMO MD 10/18/24 Current Medications Current Medications Medications (Trade) Dose Ordered Sig/Alfonso Route PRN Reason Start Time Stop Time Status Last Admin Atorvastatin Calcium (Lipitor) 20 mg HS PO 11/29/24 22:00 11/29/24 21:13 Gabapentin (Neurontin Capsule) 100 mg TID PO 11/29/24 14:00 11/29/24 13:31 Losartan Potassium (Cozaar Tablet) 100 mg DAILY PO 11/30/24 10:00 11/30/24 10:11 Azithromycin 250 ml @ 125 mls/hr DAILY IV 11/30/24 10:00 11/30/24 10:11 Spironolactone (Aldactone) 25 mg DAILY PO 11/30/24 10:00 11/30/24 10:09 Review of Systems Constitutional: No symptom reported Ears, Nose, & Throat: No symptom reported Eyes: No symptom reported Neurological: No symptoms reported Pulmonary/Respiratory: No symptom reported Cardiovascular: Positive for palpitations and chest discomfort Gastrointestinal: No symptom reported Genitourinary: No symptom reported Musculoskeletal: No symptom reported Skin: No symptom reported Psychiatric: No symptom reported Endocrine: No symptom reported Hematologic/Lymphatic: No symptom reported Vital Signs Vital Signs Date Time Temp Pulse Resp B/P (MAP) Pulse Ox O2 Delivery O2 Flow Rate FiO2 11/30/24 10:11 125/65 11/30/24 09:00 96.5 51 20 99 96.5 11/30/24 07:57 Room Air* 0 21 Physical Exam INITIAL VITAL SIGNS: Reviewed by me GENERAL: Alert and interactive. No acute distress. HEAD: Head is normocephalic and atraumatic. EYES: EOMI, PERRL. No scleral icterus. No conjunctival injection. ENT: Moist mucous membranes. NECK: Supple, No masses, Full range of motion. RESPIRATORY: No tachypnea. Clear breath sounds bilaterally. No wheezing, rales, rhonchi. CV: Irregularly irregular rhythm initially, now regular. No murmurs. Bilateral lower extremity edema. No signs of DVT GI/: Active bowel sounds, soft, nondistended, nontender. No guarding. No rebound. No masses. No CVA tenderness. INTEGUMENTARY: Warm and dry. No obvious rashes. NEUROLOGIC: Alert and oriented. Face is symmetric. Speech is normal. Moves all extremities equally. Labs/Diagnostic Data Labs Test 11/30/24 10:39 11/30/24 06:26 11/29/24 13:12 11/29/24 10:05 Range/Units White Blood Count 6.4 4.4-10.8 10^3/uL Red Blood Count 4.36 4.0-5.20 10^6/uL Hemoglobin 13.6 12.2-16.2 g/dL Hematocrit 40.6 36.0-46.0 % Mean Corpuscular Volume 93.0 80.0-100.0 fL Mean Corpuscular Hemoglobin 31.3 28.0-32.0 pg Mean Corpuscular Hemoglobin Concent 33.6 32.0-36.0 g/dL Red Cell Distribution Width 14.3 11.8-14.3 % Platelet Count 175 140-450 10^3/uL Mean Platelet Volume 11.2 H 6.9-10.8 fL Neutrophils (%) (Auto) 66.9 37.0-80.0 % Lymphocytes (%) (Auto) 22.2 10.0-50.0 % Monocytes (%) (Auto) 10.0 0.0-12.0 % Eosinophils (%) (Auto) 0.7 0.0-7.0 % Basophils (%) (Auto) 0.2 0.0-2.0 % Neutrophils # (Auto) 4.3 1.6-8.6 10 ^3/uL Lymphocytes # (Auto) 1.4 0.4-5.4 10 ^3/uL Monocytes # (Auto) 0.6 0-1.3 10 ^3/uL Eosinophils # (Auto) 0 0-0.8 10 ^3/uL Basophils # (Auto) 0 0-0.2 10 ^3/uL Nucleated Red Blood Cells 0.0 % Sodium Level 144 136-145 mmol/L Potassium Level 4.2 3.5-5.1 mmol/L Chloride Level 109 H 98-107 mmol/L Carbon Dioxide Level 23 20-31 mmol/L Anion Gap 12 5-15 Blood Urea Nitrogen 21 9-23 mg/dL Creatinine 0.78 0.550-1.02 mg/dL Glomerular Filtration Rate Calc 81 >90 mL/min BUN/Creatinine Ratio 26.9 H 10.0-20.0 Serum Glucose 96 74-106 mg/dL Calcium Level 9.5 8.7-10.4 mg/dL Magnesium Level 1.6 1.6-2.6 mg/dL Total Bilirubin 0.3 0.2-1.0 mg/dL Aspartate Amino Transferase (AST) 21 13-40 U/L Alanine Aminotransferase (ALT) 18 7-40 U/L Alkaline Phosphatase 71 46-116 U/L B-Type Natriuretic Peptide 167.54 0-100 pg/mL Total Protein 5.4 L 5.7-8.2 g/dL Albumin 3.7 3.2-4.8 g/dL Thyroid Stimulating Hormone (TSH) 0.51 L 0.55-4.78 uIU/mL Troponin I High Sensitivity 31 </=34 ng/L Urine Color Light-yellow Yellow Urine Clarity Clear Clear Urine pH 5.0 5.0-9.0 Urine Specific [place] 1.013 1.001-1.035 Urine Protein Negative Negative Urine Ketones 1+ H Negative Urine Blood Negative Negative /uL Urine Nitrite Negative Negative Urine Bilirubin Negative Negative Urine Urobilinogen Normal Negative mg/dL Urine Leukocyte Esterase Negative Negative /uL Urine RBC 1 0 - 4 /hpf Urine Microscopic WBC 1 0-5 /HPF Urine Squamous Epithelial Cells Few <5 /hpf Urine Bacteria None seen None Seen /hpf Urine Glucose Normal Normal mg/dL PROCEDURE(s): CXRP - CHEST PORTABLE REASON: sob ORDER NUMBER(s): [id number], ACCESSION NUMBER(s): [id number] EXAM: XR Chest, 1 View CLINICAL INDICATION: Pain TECHNIQUE: Frontal view of the chest. COMPARISON: No relevant prior studies available. FINDINGS: LUNGS AND PLEURAL SPACES: Right basilar atelectasis or pneumonia. No pneumothorax. HEART: Unremarkable. No cardiomegaly. MEDIASTINUM: Unremarkable. Normal mediastinal contour. BONES/JOINTS: Unremarkable. No acute fracture. IMPRESSION: Right basilar atelectasis or pneumonia. Assessment 1. Atrial fibrillation with RVR, now rate- and- rhythm controlled * Likely exacerbated by underlying structural heart disease and possibly influenced by subclinical thyroid dysfunction. Responded well to amiodarone drip. Transitioned to oral amiodarone 200 mg b.i.d. * Therapeutic Lovenox. Chads Vasc score - 4. HAS-BLED Score 2. Should t ransition to NOAC on discharge 2. Chest pain- negative troponin, likely secondary to arrhythmia * No current concern for ACS given known patent coronaries on 09/09/2024 [facility] 3. Diastolic heart failure * Recent echo shows EF 55-60%, moderate TR 4. Low-normal TSH * May contribute to AFib, thyroid function to be monitored 5. Hypertension,CAD, hyperlipidemia, obesity * Ongoing risk factors needing aggressive medical management 6. Chronic lymphedema, asthma * Stable Plan/Recommendation The patient presented in atrial fibrillation with RVR, which was successfully managed with amiodarone drip, leading to conversion to normal sinus rhythm. Given her history of diastolic heart failure, structural heart disease, multiple cardiovascular risk factor, this arrhythmia is likely secondary to cardiomyopathy and hypertensive heart disease, with a possible contribution from borderline low TSH. No evidence of acute coronary syndrome is present and there prior L HC demonstrated widely patent coronary arteries. We will continue amiodarone PO. Therapeutic Lovenox will be initiated and recommend to initiate NOAC to reduce stroke risk, on discharge. Telemetry monitoring. She is currently hemodynamically stable and improving. Advised patient to follow-up with her Cardiology DrCatalina Jang for continuity of care and further risk stratification and diastolic heart failure management. Plan discussed with: Patient NYHA Physical activity limitations: Class2(Slight)fatigue,sob Date of Service: Nov 30, 2024 Billing Provider: ANNE MARIE GARNETT Sr., MD Cardiology Common Codes: CONSULT ONLY WANDER SARKAR STUDIO SALES ASSOCIATE Nov 30, 2024 11:17
[2024-11-30] MEDS: ENOXAPARIN SOD 80 MG/0.8ML SYRINGE SC ONE (11:45)
[2024-11-30] MEDS: ENOXAPARIN SOD 100 MG/1 ML SYRINGE SC ONE (13:25)
[2024-11-30] MEDS: AMIODARONE HCL 200 MG TAB PO ONE (13:25)
--- NOTE | 2024-11-30 14:41 | ECG ---
[facility] Test Date: 2024-11-30 Test Time: 14:39:51 Pat Name: NASIR ROSARIO Department: Room: [facility]3T A Gender: F Acquisition Editor: Jm CHAMBERS : 1955 Requested By: WANDER SARKAR Order Number: [id number] Reading MD: Measurements Intervals [place] Rate: 46 P: -7 [place]: 134 QRS: -2 QRSD: 94 T: 38 QT: 503 QTc: 440 Interpretive Statements Sinus bradycardia LVH by voltage Please click the below link to view image of tracing.
--- NOTE | 2024-11-30 18:46 | DVHPN2 ---
Subjective I am assuming the care of the patient from today onwards. 69-year-old female with a known history of congestive heart failure, coronary artery disease, hypertension, dyslipidemia, chronic lymphedema of the legs presented to the hospital with chest pain and palpitation found to have AFib with RVR. Currently denies any chest pain shortness of breaths. Changes from previous H/P or p: No Changes Eyes: No Pain, No Vision change, No Conjunctivae inflammation, No Eyelid inflammation, No Other, No Redness ENT: No Ear pain, No Ear discharge, No Nose pain, No Nose discharge, No Nose congestion, No Mouth pain, No Mouth swelling, No Throat pain, No Throat swelling, No Other Cardiovascular: Chest Pain, Palpitations; No Orthopnea, No Paroxysmal Noc. Dyspnea, No Edema; Lt Headedness; No Other Respiratory: No Cough, No Dry, No Shortness of breath, No SOB with excertion, No Wheezing, No Hemoptysis, No Pleuritic Pain, No Sputum, No Other Gastrointestinal: No Nausea, No Vomiting, No Abdominal Pain, No Diarrhea, No Constipation, No Melena, No Hematochezia, No Other Genitourinary: No Dysuria, No Frequency, No Incontinence, No Hematuria, No Retention, No Other Musculoskeletal: No other, No neck pain, No shoulder pain, No arm pain, No back pain, No hand pain, No leg pain, No foot pain Skin: No Rash, No Lesions, No Jaundice, No Bruising, No Other Objective Vitals Vital Signs Date Time Temp Pulse Resp B/P (MAP) Pulse Ox O2 Delivery O2 Flow Rate FiO2 11/30/24 16:58 96.8 47 20 115/67 (83) 100 96.8 11/30/24 10:00 Room Air* 0 21 Intake/Output Intake and Output 11/30/24 07:00 Intake Total 466.66 ml Balance 466.66 ml Intake Oral 300 ml IV Total 166.66 ml # Voids 3 Exam HEENT pupils are reactive Neck is supple CV is S1-S2 regular rate and rhythm Respiratory bilateral clear GI positive bowel sound Extremity positive lymphedema STILL CLE[employer] TUBE no motor deficit Medications Current Medications Medications Dose Ordered Sig/Alfonso Route Start Time Stop Time Status Last Admin Dose Admin Atorvastatin Calcium 20 mg HS PO 11/29/24 22:00 11/29/24 21:13 20 MG Acetaminophen/ Hydrocodone Bitart 1 tab Q4HP PRN PO 11/29/24 10:15 11/30/24 10:10 1 TAB Ondansetron HCl 4 mg Q4HP PRN IV 11/29/24 10:15 Docusate Sodium 100 mg BIDPRN PRN PO 11/29/24 10:15 Acetaminophen 650 mg Q6HP PRN PO 11/29/24 10:15 Nitroglycerin 0.4 mg Q5MINP PRN SL 11/29/24 10:15 Morphine Sulfate 2 mg Q30M PRN IV 11/29/24 10:15 Gabapentin 100 mg TID PO 11/29/24 14:00 11/30/24 13:47 100 MG Losartan Potassium 100 mg DAILY PO 11/30/24 10:00 11/30/24 10:11 100 MG Ipratropium [place] 0.5 mg Q4HPRN PRN NEB 11/29/24 10:30 11/29/24 19:56 0.5 MG Albuterol 2.5 mg Q4HPRN PRN NEB 11/29/24 10:30 11/29/24 19:56 2.5 MG Azithromycin 250 ml @ 125 mls/hr DAILY IV 11/30/24 10:00 11/30/24 10:11 125 MLS/HR Spironolactone 25 mg DAILY PO 11/30/24 10:00 11/30/24 10:09 25 MG Amiodarone HCl 200 mg Q12HR PO 11/30/24 22:00 Enoxaparin Sodium 80 mg Q12HR SC 11/30/24 22:00 Laboratory Results Laboratory Tests 11/30/24 06:26 Chemistry Test 11/30/24 06:26 Albumin 3.7 g/dL (3.2-4.8) Calcium Level 9.5 mg/dL (8.7-10.4) Magnesium Level 1.6 mg/dL (1.6-2.6) Total Protein 5.4 g/dL (5.7-8.2) L Cardiac Markers Test 11/30/24 06:26 B-Type Natriuretic Peptide 167.54 pg/mL (0-100) LFT Test 11/30/24 06:26 Alanine Aminotransferase (ALT) 18 U/L (7-40) Alkaline Phosphatase 71 U/L (46-116) Aspartate Amino Transferase (AST) 21 U/L (13-40) Total Bilirubin 0.3 mg/dL (0.2-1.0) HgA1c, TSH Test 11/30/24 06:26 Thyroid Stimulating Hormone (TSH) 0.51 uIU/mL (0.55-4.78) L Urinalysis Test 11/29/24 10:05 Urine Color Light-yellow (Yellow) Urine Clarity Clear (Clear) Urine pH 5.0 (5.0-9.0) Urine Specific [place] 1.013 (1.001-1.035) Urine Protein Negative (Negative) Urine Ketones 1+ (Negative) H Urine Blood Negative /uL (Negative) Urine Nitrite Negative (Negative) Urine Bilirubin Negative (Negative) Urine Urobilinogen Normal mg/dL (Negative) Urine Leukocyte Esterase Negative /uL (Negative) Urine RBC 1 /hpf (0 - 4) Urine Microscopic WBC 1 /HPF (0-5) Urine Squamous Epithelial Cells Few /hpf (<5) Urine Bacteria None seen /hpf (None Seen) Urine Glucose Normal mg/dL (Normal) Microbiology Microbiology Date/Time Source Procedure Growth Status 11/29/24 16:19 Nose MRSA Screen - Final Complete Assessment/Plan Assessment/Plan 69-year-old female with a known history of congestive heart failure diastolic dysfunction, coronary artery disease, hypertension, dyslipidemia, chronic lymphedema of the legs presented to the hospital with chest pain found to have 1. AFib with RVR currently in normal sinus rhythm 2. Hypertension 3. Chronic congestive heart failure with diastolic dysfunction currently compensated 4. Hypertension 5. Low-normal TSH 6. Chronic lymphedema of the legs -continue amiodarone, 2D echo cardiology consultation, continue anticoagulation for primary prevention of stroke, risks benefits alternatives of therapeutic Lovenox explained to the patient in detail including life-threatening bleeding disability , patient understand verbalized understanding and agreeable to plan. Plan discussed with: Patient My Orders Orders - LAURA RICHARDSON MD Procedure Category Date Status Time Cleanse Wound With REX 11/30/24 In Process Mild Soap A 11:35 Date of Service: Nov 30, 2024 Billing Provider: LAURA RICHARDSON MD Common Visit Codes: [id number] INP/OBS CARE(MOD) LAURA RICHARDSON MD Nov 30, 2024 18:46
[2024-11-30] MEDS: AMIODARONE HCL 200 MG TAB PO SCH (21:25)
[2024-11-30] MEDS: ENOXAPARIN SOD 80 MG/0.8ML SYRINGE SC SCH (21:26)
[2024-12-01] VITALS (12 sets, daily range): BP systolic 106–138; BP diastolic 35–98; PULSE 43–65; RESP 16–20; TEMP 95.6–98.5; O2SAT 96–99
--- NOTE | 2024-12-01 12:18 | DVHPN2 ---
Subjective 69-year-old female with a known history of congestive heart failure, coronary artery disease, hypertension, dyslipidemia, chronic lymphedema of the legs presented to the hospital with chest pain and palpitation found to have AFib with RVR. Currently denies any chest pain shortness of breaths. Changes from previous H/P or p: No Changes Eyes: No Pain, No Vision change, No Conjunctivae inflammation, No Eyelid inflammation, No Other, No Redness ENT: No Ear pain, No Ear discharge, No Nose pain, No Nose discharge, No Nose congestion, No Mouth pain, No Mouth swelling, No Throat pain, No Throat swelling, No Other Cardiovascular: Chest Pain, Palpitations; No Orthopnea, No Paroxysmal Noc. Dyspnea, No Edema; Lt Headedness; No Other Respiratory: No Cough, No Dry, No Shortness of breath, No SOB with excertion, No Wheezing, No Hemoptysis, No Pleuritic Pain, No Sputum, No Other Gastrointestinal: No Nausea, No Vomiting, No Abdominal Pain, No Diarrhea, No Constipation, No Melena, No Hematochezia, No Other Genitourinary: No Dysuria, No Frequency, No Incontinence, No Hematuria, No Retention, No Other Musculoskeletal: No other, No neck pain, No shoulder pain, No arm pain, No back pain, No hand pain, No leg pain, No foot pain Skin: No Rash, No Lesions, No Jaundice, No Bruising, No Other Objective Vitals Vital Signs Date Time Temp Pulse Resp B/P (MAP) Pulse Ox O2 Delivery O2 Flow Rate FiO2 12/01/24 10:00 98 Room Air* 0 21 12/01/24 09:48 138/98 12/01/24 09:00 96.7 65 20 96.7 Intake/Output Intake and Output 12/01/24 07:00 Intake Total 1590 ml Output Total 1200 ml Balance 390 ml Intake Oral 1590 ml Output Urine Total 1200 ml # Voids 4 # Bowel Movements 1 Exam HEENT pupils are reactive Neck is supple CV is S1-S2 regular rate and rhythm Respiratory bilateral clear GI positive bowel sound 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 Medications Current Medications Medications Dose Ordered Sig/Alfonso Route Start Time Stop Time Status Last Admin Dose Admin Atorvastatin Calcium 20 mg HS PO 11/29/24 22:00 11/30/24 21:25 20 MG Acetaminophen/ Hydrocodone Bitart 1 tab Q4HP PRN PO 11/29/24 10:15 12/01/24 01:55 1 TAB Ondansetron HCl 4 mg Q4HP PRN IV 11/29/24 10:15 Docusate Sodium 100 mg BIDPRN PRN PO 11/29/24 10:15 Acetaminophen 650 mg Q6HP PRN PO 11/29/24 10:15 Nitroglycerin 0.4 mg Q5MINP PRN SL 11/29/24 10:15 Morphine Sulfate 2 mg Q30M PRN IV 11/29/24 10:15 Gabapentin 100 mg TID PO 11/29/24 14:00 11/30/24 13:47 100 MG Losartan Potassium 100 mg DAILY PO 11/30/24 10:00 12/01/24 09:48 100 MG Ipratropium [place] 0.5 mg Q4HPRN PRN NEB 11/29/24 10:30 11/29/24 19:56 0.5 MG Albuterol 2.5 mg Q4HPRN PRN NEB 11/29/24 10:30 11/29/24 19:56 2.5 MG Azithromycin 250 ml @ 125 mls/hr DAILY IV 11/30/24 10:00 12/01/24 09:46 125 MLS/HR Spironolactone 25 mg DAILY PO 11/30/24 10:00 12/01/24 09:46 25 MG Amiodarone HCl 200 mg Q12HR PO 11/30/24 22:00 12/01/24 09:46 200 MG Enoxaparin Sodium 80 mg Q12HR SC 11/30/24 22:00 12/01/24 09:48 80 MG Laboratory Results Laboratory Tests 11/30/24 06:26 Urinalysis Test 11/29/24 10:05 Urine Color Light-yellow (Yellow) Urine Clarity Clear (Clear) Urine pH 5.0 (5.0-9.0) Urine Specific [place] 1.013 (1.001-1.035) Urine Protein Negative (Negative) Urine Ketones 1+ (Negative) H Urine Blood Negative /uL (Negative) Urine Nitrite Negative (Negative) Urine Bilirubin Negative (Negative) Urine Urobilinogen Normal mg/dL (Negative) Urine Leukocyte Esterase Negative /uL (Negative) Urine RBC 1 /hpf (0 - 4) Urine Microscopic WBC 1 /HPF (0-5) Urine Squamous Epithelial Cells Few /hpf (<5) Urine Bacteria None seen /hpf (None Seen) Urine Glucose Normal mg/dL (Normal) Microbiology Microbiology Date/Time Source Procedure Growth Status 11/29/24 16:19 Nose MRSA Screen - Final Complete Assessment/Plan Assessment/Plan 69-year-old female with a known history of congestive heart failure diastolic dysfunction, coronary artery disease, hypertension, dyslipidemia, chronic lymphedema of the legs presented to the hospital with chest pain found to have 1. AFib with RVR currently in normal sinus rhythm 2. Hypertension 3. Chronic congestive heart failure with diastolic dysfunction currently compensated 4. Hypertension 5. Low-normal TSH with a normal free T4 suspect subclinical hyperthyroidism 6. Chronic lymphedema of the legs -continue amiodarone, 2D echo cardiology consultation, continue anticoagulation for primary prevention of stroke, risks benefits alternatives of therapeutic Lovenox explained to the patient in detail including life-threatening bleeding disability , patient understand verbalized understanding and agreeable to plan. -discharge plan on amiodarone and NOAC Plan discussed with: Patient My Orders Orders - LAURA RICHARDSON MD Procedure Category Date Status Time Cleanse Wound With REX 11/30/24 In Process Mild Soap A 11:35 Date of Service: Dec 01, 2024 Billing Provider: LAURA RICHARDSON MD Common Visit Codes: [id number] INP/OBS CARE(MOD) LAURA RICHARDSON MD Dec 01, 2024 12:18
--- NOTE | 2024-12-01 17:41 | DVHPN2 ---
Subjective denies cp, sob, dizziness no cardiac event reported sinusbrady 40-50s Changes from previous H/P or p: No Changes Eyes: No Pain, No Vision change, No Conjunctivae inflammation, No Eyelid inflammation, No Other, No Redness ENT: No Ear pain, No Ear discharge, No Nose pain, No Nose discharge, No Nose congestion, No Mouth pain, No Mouth swelling, No Throat pain, No Throat swelling, No Other Cardiovascular: Chest Pain, Palpitations; No Orthopnea, No Paroxysmal Noc. Dyspnea, No Edema; Lt Headedness; No Other Respiratory: No Cough, No Dry, No Shortness of breath, No SOB with excertion, No Wheezing, No Hemoptysis, No Pleuritic Pain, No Sputum, No Other Gastrointestinal: No Nausea, No Vomiting, No Abdominal Pain, No Diarrhea, No Constipation, No Melena, No Hematochezia, No Other Genitourinary: No Dysuria, No Frequency, No Incontinence, No Hematuria, No Retention, No Other Musculoskeletal: No other, No neck pain, No shoulder pain, No arm pain, No back pain, No hand pain, No leg pain, No foot pain Skin: No Rash, No Lesions, No Jaundice, No Bruising, No Other Objective Vitals Vital Signs Date Time Temp Pulse Resp B/P (MAP) Pulse Ox O2 Delivery O2 Flow Rate FiO2 12/01/24 17:00 96.4 43 20 134/56 (82) 98 96.4 12/01/24 10:00 Room Air* 0 21 Intake/Output Intake and Output 12/01/24 07:00 Intake Total 1590 ml Output Total 1200 ml Balance 390 ml Intake Oral 1590 ml Output Urine Total 1200 ml # Voids 4 # Bowel Movements 1 General Appearance: Alert, Oriented X3 Cardiovascular: Other (sinus dominique) Medications Current Medications Medications Dose Ordered Sig/Alfonso Route Start Time Stop Time Status Last Admin Dose Admin Atorvastatin Calcium 20 mg HS PO 11/29/24 22:00 11/30/24 21:25 20 MG Acetaminophen/ Hydrocodone Bitart 1 tab Q4HP PRN PO 11/29/24 10:15 12/01/24 01:55 1 TAB Ondansetron HCl 4 mg Q4HP PRN IV 11/29/24 10:15 Docusate Sodium 100 mg BIDPRN PRN PO 11/29/24 10:15 Acetaminophen 650 mg Q6HP PRN PO 11/29/24 10:15 Nitroglycerin 0.4 mg Q5MINP PRN SL 11/29/24 10:15 Morphine Sulfate 2 mg Q30M PRN IV 11/29/24 10:15 Gabapentin 100 mg TID PO 11/29/24 14:00 12/01/24 15:26 100 MG Losartan Potassium 100 mg DAILY PO 11/30/24 10:00 12/01/24 09:48 100 MG Ipratropium [place] 0.5 mg Q4HPRN PRN NEB 11/29/24 10:30 11/29/24 19:56 0.5 MG Albuterol 2.5 mg Q4HPRN PRN NEB 11/29/24 10:30 11/29/24 19:56 2.5 MG Azithromycin 250 ml @ 125 mls/hr DAILY IV 11/30/24 10:00 12/01/24 09:46 125 MLS/HR Spironolactone 25 mg DAILY PO 11/30/24 10:00 12/01/24 09:46 25 MG Amiodarone HCl 200 mg Q12HR PO 11/30/24 22:00 12/01/24 09:46 200 MG Enoxaparin Sodium 80 mg Q12HR SC 11/30/24 22:00 12/01/24 09:48 80 MG Laboratory Results Laboratory Tests 11/30/24 06:26 Urinalysis Test 11/29/24 10:05 Urine Color Light-yellow (Yellow) Urine Clarity Clear (Clear) Urine pH 5.0 (5.0-9.0) Urine Specific [place] 1.013 (1.001-1.035) Urine Protein Negative (Negative) Urine Ketones 1+ (Negative) H Urine Blood Negative /uL (Negative) Urine Nitrite Negative (Negative) Urine Bilirubin Negative (Negative) Urine Urobilinogen Normal mg/dL (Negative) Urine Leukocyte Esterase Negative /uL (Negative) Urine RBC 1 /hpf (0 - 4) Urine Microscopic WBC 1 /HPF (0-5) Urine Squamous Epithelial Cells Few /hpf (<5) Urine Bacteria None seen /hpf (None Seen) Urine Glucose Normal mg/dL (Normal) Microbiology Microbiology Date/Time Source Procedure Growth Status 11/29/24 16:19 Nose MRSA Screen - Final Complete Assessment/Plan Assessment/Plan 1. Atrial fibrillation with RVR, now rate- and- rhythm controlled * Likely exacerbated by underlying structural heart disease and possibly influenced by subclinical thyroid dysfunction. Responded well to amiodarone drip. Transitioned to oral amiodarone 200 mg b.i.d. * Therapeutic Lovenox. Chads Vasc score - 4. HAS-BLED Score 2. Should transition to NOAC on discharge 2. Chest pain- negative troponin, likely secondary to arrhythmia * No current concern for ACS given known patent coronaries on 09/09/2024 [facility] 3. Diastolic heart failure * Recent echo shows EF 55-60%, moderate TR 4. Low-normal TSH * May contribute to AFib, thyroid function to be monitored 5. Hypertension,CAD, hyperlipidemia, obesity * Ongoing risk factors needing aggressive medical management 6. Chronic lymphedema, asthma * Stable Plan/Recommendation In the setting of asymptomatic bradycardia (HR 40-50s) following transition from amiodarone drip to oral amiodarone 200 mg b.i.d. We suspect medication-related bradycardia. From a cardiology standpoint, we recommend discontinuing amiodarone at this time. A repeat 12 lead ECG to monitor for conduction abnormalities or involving rhythm changes. Initiate intravenous fluids with normal saline to support hemodynamics as needed. Continue close cardiac monitoring with telemetry to assess for further bradyarrhythmia or any clinical deterioration. Reassess clinical status and rhythm trend. We will consider alternative rate control option if AFib occurs. Plan discussed with: Patient NYHA 2 Physical activity limitations: Class2(Slight)fatigue,sob Plan discussed with: Patient My Orders Orders - WANDER SARKAR Procedure Category Date Status Time NS PHA 12/01/24 Verified 17:45 Date of Service: Dec 01, 2024 Billing Provider: ANNE MARIE GARNETT Sr., MD Common Visit Codes: CONSULT ONLY Consultation Codes: [id number] CONSULT <45MIN WANDER SARKAR Dec 01, 2024 17:41
[2024-12-01] MEDS: SODIUM CHLORIDE 0.9% 1,000 ML IV ONE (18:45)
[2024-12-02] VITALS (7 sets, daily range): BP systolic 109–131; BP diastolic 40–72; PULSE 36–87; RESP 18–20; TEMP 36.6; O2SAT 95–100
[2024-12-02] MEDS ORDERED: DOXY1CAP57 PO (09:41)
[2024-12-02] MEDS ORDERED: SPIR25TA PO (09:41)
--- NOTE | 2024-12-02 09:50 | DVHDS2 ---
Discharge Summary Date of Admission Nov 29, 2024 at 10:02 Date of Discharge: Dec 02, 2024 Labs/Diagnostic Data: Laboratory Results Test 11/30/24 10:39 11/30/24 06:26 11/29/24 13:12 11/29/24 10:05 Thyroxine (T4) 7.7 ug/dL (4.5-12.0) White Blood Count 6.4 10^3/uL (4.4-10.8) Red Blood Count 4.36 10^6/uL (4.0-5.20) Hemoglobin 13.6 g/dL (12.2-16.2) Hematocrit 40.6 % (36.0-46.0) Mean Corpuscular Volume 93.0 fL (80.0-100.0) Mean Corpuscular Hemoglobin 31.3 pg (28.0-32.0) Mean Corpuscular Hemoglobin Concent 33.6 g/dL (32.0-36.0) Red Cell Distribution Width 14.3 % (11.8-14.3) Platelet Count 175 10^3/uL (140-450) Mean Platelet Volume 11.2 fL (6.9-10.8) Neutrophils (%) (Auto) 66.9 % (37.0-80.0) Lymphocytes (%) (Auto) 22.2 % (10.0-50.0) Monocytes (%) (Auto) 10.0 % (0.0-12.0) Eosinophils (%) (Auto) 0.7 % (0.0-7.0) Basophils (%) (Auto) 0.2 % (0.0-2.0) Neutrophils # (Auto) 4.3 10 ^3/uL (1.6-8.6) Lymphocytes # (Auto) 1.4 10 ^3/uL (0.4-5.4) Monocytes # (Auto) 0.6 10 ^3/uL (0-1.3) Eosinophils # (Auto) 0 10 ^3/uL (0-0.8) Basophils # (Auto) 0 10 ^3/uL (0-0.2) Nucleated Red Blood Cells 0.0 % Sodium Level 144 mmol/L (136-145) Potassium Level 4.2 mmol/L (3.5-5.1) Chloride Level 109 mmol/L (98-107) Carbon Dioxide Level 23 mmol/L (20-31) Anion Gap 12 (5-15) Blood Urea Nitrogen 21 mg/dL (9-23) Creatinine 0.78 mg/dL (0.550-1.02) Glomerular Filtration Rate Calc 81 mL/min (>90) BUN/Creatinine Ratio 26.9 (10.0-20.0) Serum Glucose 96 mg/dL (74-106) Calcium Level 9.5 mg/dL (8.7-10.4) Magnesium Level 1.6 mg/dL (1.6-2.6) Total Bilirubin 0.3 mg/dL (0.2-1.0) Aspartate Amino Transferase (AST) 21 U/L (13-40) Alanine Aminotransferase (ALT) 18 U/L (7-40) Alkaline Phosphatase 71 U/L (46-116) B-Type Natriuretic Peptide 167.54 pg/mL (0-100) Total Protein 5.4 g/dL (5.7-8.2) Albumin 3.7 g/dL (3.2-4.8) Thyroid Stimulating Hormone (TSH) 0.51 uIU/mL (0.55-4.78) Troponin I High Sensitivity 31 ng/L (</=34) Urine Color Light-yellow (Yellow) Urine Clarity Clear (Clear) Urine pH 5.0 (5.0-9.0) Urine Specific [place] 1.013 (1.001-1.035) Urine Protein Negative (Negative) Urine Ketones 1+ (Negative) Urine Blood Negative /uL (Negative) Urine Nitrite Negative (Negative) Urine Bilirubin Negative (Negative) Urine Urobilinogen Normal mg/dL (Negative) Urine Leukocyte Esterase Negative /uL (Negative) Urine RBC 1 /hpf (0 - 4) Urine Microscopic WBC 1 /HPF (0-5) Urine Squamous Epithelial Cells Few /hpf (<5) Urine Bacteria None seen /hpf (None Seen) Urine Glucose Normal mg/dL (Normal) Other Laboratory Tests 11/30/24 06:26 Brief Hx & Hospital Course: 69-year-old female with a history of atrial fibrillation, chronic lymphedema, hypertension came with a chief complaint of palpitations and was found to be in atrial fibrillation with rapid ventricular response, she was given IV amiodarone and then she was started on p.o. amiodarone per Cardiology recommendations however she became bradycardic and therefore the amiodarone was discontinued. She is asymptomatic now Her heart rate is running between 50 and 60 She is bradycardic at baseline She had workup before with a stress test and angiogram which were negative She was also found to have a right lower lobe pneumonia or atelectasis when was given IV antibiotics At this time she is asymptomatic, she is on room air Amiodarone was discontinued She was started on Aldactone which she takes at home She was given losartan here but she is hypotensive and she does not take it at home She was taking nifedipine at home before for hypertension but she says it was discontinued by her primary care physician before but she does not know the reason so she has not been taking it lately Patient is stable for discharge She will be given doxycycline for 7 days Follow up with her primary care physician soon as possible Final diagnoses: Atrial fibrillation with rapid ventricular response Hypertension Chronic lymphedema of the lower extremities Right lower lobe pneumonia Diastolic heart failure Follow up with her cuff slitter Dr. Jang as soon as possible Follow up with her primary care physician as soon as possible Condition at Discharge: Stable Final Diagnosis/Problems List Afib RVR RLL PNA Bradycardia HTN Bilateral lower extremities lymphedema Discharge Disposition: Home SNF Discharge Will this Physician continue t: No Discharge Instruct/Medications Diet: Cardiac 2g Na,low cholest Activity: Light activity Follow Up/Referral: PCP KAYLA Dr. Suhail GARZA Medications: Doxycycline 100 mg bid x 7 days Aldactone 25 mg qd Scheduled Atorvastatin Calcium (Atorvastatin Calcium), 20 MG PO HS Doxycycline Monohydrate (Doxycycline Monohydrate), 1 CAP PO BID Furosemide (Furosemide), 1 TAB PO DAILY Gabapentin (Gabapentin), 100 MG PO TID, (Reported) Olmesartan Medoxomil (Olmesartan Medoxomil), 1 TAB PO DAILY, (Reported) Spironolactone (Spironolactone), 1 TAB PO DAILY Spironolactone (Aldactone), 1 TAB PO DAILY Tramadol Hcl (Tramadol Hcl), 1-2 TAB PO BID PRN, (Reported) Discontinued Medications Gabapentin (Once-Daily) (Gabapentin), 300 MG PO Q6HP PRN Hydrocodone-Acetaminophen (Hydrocodone Bitartrate/AC 10-325 mg), 1 TAB PO Q8HP PRN Rosuvastatin Calcium (Rosuvastatin Calcium), 1 TAB PO DAILY, (Reported) Discharge Statement: "Patient was advised to return to the ER or call 911 if any headaches, dizziness, shortness of breath, chest pain, abdominal pain, bleeding, fevers, or worsening of medical condition. Patient was counseled about treatment plan, medications, possible side effects, patientverbalized understanding. All questions were answered to the best of my ability. This discharge took greater then 30 minutes in planning, reviewing documentation, counseling the patient, and discussing with other team members." ASSESSMENT ASSESSMENT Assessment Afib RVR RLL PNA Bradycardia HTN Bilateral lower extremities lymphedema Date of Service: Dec 02, 2024 Billing Provider: RUSSELL CORONA MD Common Visit Codes: NOT BILLABLE RUSSELL CORONA MD Dec 02, 2024 09:50
[2024-12-02 13:35] LABS: Free T3 3.23 pg/mL (2.3-4.2); Free T4 (Free Thyroxine) 0.99 ng/dL (0.89-1.76)
== END 2024-12-02 17:00 | disposition home or self-care (01) | DRG 308 ==
LOC: EDBD 07:12 → ER 07:18 → OVERFLOW 10:02 → TELE-WESTW 17:57
PROVIDERS: ADMIT Internal Medicine Geriatric Medicine; ATTEND Internal Medicine Geriatric Medicine
DX: I48.91 Unspecified atrial fibrillation (principal); J15.69 Pneumonia due to other Gram-negative bacteria; J15.9 Unspecified bacterial pneumonia; I50.32 Chronic diastolic (congestive) heart failure; Z68.41 Body mass index [BMI] 40.0-44.9, adult; I11.0 Hypertensive heart disease with heart failure; I25.10 Atherosclerotic heart disease of native coronary artery without angina pectoris; E78.5 Hyperlipidemia, unspecified; J45.909 Unspecified asthma, uncomplicated; I89.0 Lymphedema, not elsewhere classified; E66.9 Obesity, unspecified; Z88.2 Allergy status to sulfonamides; Z79.899 Other long term (current) drug therapy; Z82.49 Family history of ischemic heart disease and other diseases of the circulatory system; Z80.52 Family history of malignant neoplasm of bladder; Z79.01 Long term (current) use of anticoagulants
CPT/HCPCS: 36415; 71045; 80048; 80053; 81001; 83735; 83880; 84436; 84439; 84443; 84480; 84481; 84484; 85025; 87081; 93005; 94640; 96365; 96375; 99291; 99292; G0378

== ENCOUNTER 2024-12-09 16:31 | Inpatient (IN) | payer OTHER ==
[~2024-12-09] VITALS: Ht 167.6 cm; Wt 82.3 kg
[~2024-12-09 16:31] MED LIST changes: +DOXY1CAP57 PO; +GAB100C PO; -GABA300T4 PO; -HYDR-4798 PO; +OLME20TA67 PO; -ROSU40TA47 PO; +SPIR25TA PO
[2024-12-09 18:40] LABS: Hematocrit 41.9 % (36.0-46.0); Hemoglobin 14.5 g/dL (12.2-16.2); Mean Corpuscular Hemoglobin 31.4 pg (28.0-32.0); Mean Corpuscular Volume 91.2 fL (80.0-100.0)
--- NOTE | 2024-12-09 18:48 | ECG ---
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
--- NOTE | 2024-12-09 18:49 | DVH ---
CHEST RADIOGRAPH Indication: dizziness Technique: Single frontal view of the chest was obtained Comparison: XY CHEST PORTABLE on DOS: 11/29/24, XY CHEST PORTABLE on DOS: 09/05/24, XY CHEST XRAY 1 VIEW on DOS: 07/30/24 FINDINGS: Lines and Tubes: None Lungs: No focal consolidation. Pleura: No effusion. No pneumothorax. Cardiomediastinal contours: Unremarkable Bones: No acute osseous abnormality. IMPRESSION: 1. No acute cardiopulmonary disease.
[2024-12-09 18:50] LABS: Potassium 4.1 mmol/L (3.5-5.1)
[2024-12-09 18:51] LABS: Anion Gap 11 (5-15); Calcium 9.3 mg/dL (8.7-10.4); Carbon Dioxide 25 mmol/L (20-31)
[2024-12-09 18:54] LABS: Chloride 111 mmol/L (98-107); Sodium 147 mmol/L (136-145)
[2024-12-09 18:56] LABS: BUN/Creatinine Ratio 21.0 (10.0-20.0)
[2024-12-09 18:58] LABS: Blood Urea Nitrogen 37 mg/dL (9-23); Glucose 151 mg/dL (74-106)
[2024-12-09 19:33] LABS: Total Cells Counted 100.0 (100)
--- NOTE | 2024-12-09 19:48 | ED.PDOC ---
History of Present Illness HPI Comments 69-year-old female who is brought in by ambulance from private residence for chief complaint of right lower leg swelling, dizziness, mild abdominal discomfort, and shortness of breath. Patient endorses on 3 day history of symptoms, which have been progressively worsening since initial unprovoked, atraumatic, and gradual onset. She states on suspicion of possible adverse reaction to her recent dressing on her right lower extremity following hospitalization admission discharge from [facility] on November 20, 2024. Significant history for AFib with rapid ventricular response, asthma, CAD, diastolic CHF, chronic lymphedema of lower extremities, right lower lobe pneumonia, hyperlipidemia, and hypertension. Patient is compliant with medications, with the exception to her hypertension medications. No recent travel or known injuries. No endorsement of chest pain, cough, congestion, lightheadedness, headache, fever, chills, or further associated symptoms. REVIEW OF SYSTEMS: No fever, no chills, HEENT: No neck pain, no blurred vision Cardiac: No chest pain. No palpitations. Lungs: shortness of breath, GI: Mild abdominal discomfort, no vomiting Musculoskeletal: Right lower leg swelling, No joint pain , no back pain Skin: No rash, no wound Neuro: Dizziness. No headache, no syncope PHYSICAL EXAM: General: Awake, alert and oriented. No acute distress. Skin: Skin in warm, dry and intact without rashes or lesions. HEENT: The head is normocephalic and atraumatic. Conjunctivae are clear without exudates or hemorrhage. Sclera is non-icteric. Neck: Normal range of motion. No JVD. Cardiac: Regular rate Respiratory: No signs of respiratory distress. No Stridor. Extremities: Right lower extremity bruising, tenderness, macerated, edematous, and diminished DP pulse. Otherwise, remaining upper and lower extremities are atraumatic in appearance without deformity. Neurological: The patient is awake, alert and oriented to person, place, and time with normal speech. Speech is clear. There is no facial asymmetry. Psychiatric: Appropriate mood and affect. Good judgement and insight. Chief Complaint: Dizziness Time Seen by MD: 18:00 Primary Care Provider: Luis Felipe Avilez Reviewed Notes: Nurses Notes, Marketing Operations Coordinator Notes, Medications, Allergies Allergies: Coded Allergies: Sulfa Antibiotics (Verified Allergy, Unknown, 11/25/23) Amlodipine (Unverified Adverse Reaction, Unknown, 07/10/24) Peripheral edema Uncoded Allergies: Gauze (Allergy, Intermediate, 11/29/24) Per patient, causes skin to darken red. Informed to refuse gauze. Home Meds Active Scripts Spironolactone (Aldactone) 25 Mg Tab, 1 TAB PO DAILY, #30 TAB 5 Refills Prov:RUSSELL CORONA MD 12/02/24 Doxycycline Monohydrate (Doxycycline Monohydrate) 100 Mg Cap, 1 CAP PO BID, #14 CAP Prov:RUSSELL CORONA MD 12/02/24 Furosemide (Furosemide) 40 Mg Tab, 1 TAB PO DAILY, #90 TAB 1 Refill Prov:AWA MILTON MD 11/19/24 Atorvastatin Calcium (ATORVASTATIN CALCIUM) 20 Mg Tab, 20 MG PO HS, #60 TAB Prov:AWA MILTON MD 11/19/24 Spironolactone (Spironolactone) 25 Mg Tab, 1 TAB PO DAILY, #60 TAB Prov:AWA MILTON MD 11/19/24 Reported Medications Olmesartan Medoxomil (Olmesartan Medoxomil) 20 Mg Tab, 1 TAB PO DAILY 11/29/24 Gabapentin (Gabapentin) 100 Mg Cap, 100 MG PO TID 11/29/24 Tramadol Hcl (Tramadol Hcl) 50 Mg Tab, 1-2 TAB PO BID PRN for 30 Days, #120 08/01/24 Information Source: Patient, Emergency Med Personnel Mode of Arrival: EMS Severity: Moderate Timing: Days Duration: Since onset Prehospital treatment: 12 Lead EKG, Accucheck (152), Wheel Adjuster Past Medical History PAST MEDICAL HISTORY: AFIB (With rapid ventricular response), Asthma, CAD, CHF (Diastolic), High Lipids, HTN Past Medical History (Other): Chronic lymphedema of lower extremities Right lower lobe pneumonia Surgical History: Denies all surgeries PLY BANDER History: No Pertinent PLY BANDER History Family History Family History: Reviewed,noncontributory to illness, Unknown Social History Smoker: Non-Smoker Alcohol: Denies ETOH Use Drugs: Denies Drug Use Lives In: Home Was a procedure done? Was a procedure done?: No Differential Dx Considerations may include: Congestive heart failure, DVT, ischemic limb, cellulitis, arterial disease, n ecrotizing fasciitis, acute coronary syndrome, other X-Ray, Labs, Meds, VS Vital Signs Date Time Temp Pulse Resp B/P (MAP) Pulse Ox O2 Delivery O2 Flow Rate FiO2 12/09/24 21:21 98.2 51 16 96/49 (65) 95 98.2 12/09/24 18:06 58 12/09/24 16:35 98.0 60 16 103/72 96 98.0 12/09/24 16:31 58 Lab Test 12/09/24 18:20 Range/Units White Blood Count 5.6 4.4-10.8 10^3/uL Red Blood Count 4.60 4.0-5.20 10^6/uL Hemoglobin 14.5 12.2-16.2 g/dL Hematocrit 41.9 36.0-46.0 % Mean Corpuscular Volume 91.2 80.0-100.0 fL Mean Corpuscular Hemoglobin 31.4 28.0-32.0 pg Mean Corpuscular Hemoglobin Concent 34.5 32.0-36.0 g/dL Red Cell Distribution Width 14.0 11.8-14.3 % Platelet Count 173 140-450 10^3/uL Mean Platelet Volume 12.1 H 6.9-10.8 fL Neutrophils (%) (Auto) 37.0-80.0 % Lymphocytes (%) (Auto) 10.0-50.0 % Monocytes (%) (Auto) 0.0-12.0 % Basophils (%) (Auto) 0.0-2.0 % Neutrophils # (Auto) 1.6-8.6 10 ^3/uL Lymphocytes # (Auto) 0.4-5.4 10 ^3/uL Monocytes # (Auto) 0-1.3 10 ^3/uL Differential Total Cells Counted 100.0 100 Neutrophils % (Manual) 43 37.0-80.0 Band Neutrophils % (Manual) 1 Lymphocytes % (Manual) 38 10.0-50.0 Monocytes % (Manual) 14 H 0-12 Eosinophils % (Manual) 0 0-7 Basophils % (Manual) 0 0.0-2.0 Metamyelocytes % (manual) 0 Myelocytes % (Manual) 0 Promyelocytes % (Manual) 0 Blast Cells % (Manual) 0 Reactive Lymphocytes 4 Platelet Estimate Adequate Sodium Level 147 H 136-145 mmol/L Potassium Level 4.1 3.5-5.1 mmol/L Chloride Level 111 H 98-107 mmol/L Carbon Dioxide Level 25 20-31 mmol/L Anion Gap 11 5-15 Blood Urea Nitrogen 37 H 9-23 mg/dL Creatinine 1.76 H 0.550-1.02 mg/dL Glomerular Filtration Rate Calc 31 >90 mL/min BUN/Creatinine Ratio 21.0 H 10.0-20.0 Serum Glucose 151 H 74-106 mg/dL Calcium Level 9.3 8.7-10.4 mg/dL Troponin I High Sensitivity 10 </=34 ng/L B-Type Natriuretic Peptide 63.33 0-100 pg/mL Current Medications Medications (Trade) Dose Ordered Sig/Alfonso Route Start Time Stop Time Status Last Admin Tramadol HCl (Ultram) 50 mg ONCE ONCE PO 12/09/24 20:00 12/09/24 20:01 DC 12/10/24 02:52 Acetaminophen (Tylenol Tablet) 650 mg ONCE ONCE PO 12/09/24 20:00 12/09/24 20:01 DC 12/10/24 02:53 [place] [id number] Ph: [phone] DIAGNOSTIC IMAGING Diagnostic Imaging Report : [id number] Signed PATIENT: NASIR ROSARIO ACCT: [id number] UNIT: [id number] : 1955 LOC: ER ROOM / BED: / AGE / SEX: 69 / F ADM STATUS: REG ER SERVICE 180 ORDERING PHYSICIAN: TRENT KELLY MD PROCEDURE(s): CXR1 - CHEST XRAY 1 VIEW REASON: dizziness ORDER NUMBER(s): [id number], ACCESSION NUMBER(s): [id number] CHEST RADIOGRAPH Indication: dizziness Technique: Single frontal view of the chest was obtained Comparison: XY CHEST PORTABLE on DOS: 11/29/24, XY CHEST PORTABLE on DOS: 09/05/24, XY CHEST XRAY 1 VIEW on DOS: 07/30/24 FINDINGS: Lines and Tubes: None Lungs: No focal consolidation. Pleura: No effusion. No pneumothorax. Cardiomediastinal contours: Unremarkable Bones: No acute osseous abnormality. IMPRESSION: 1. No acute cardiopulmonary disease. ATED BY: KADE ZAVALA Jr., DO DICTATED DATE/TIME: 12/09/241846 SIGNED BY: KADE ZAVALA Jr., DO SIGNED DATE/TIME: 12/09/241846 CC: [place] [id number] Ph: [phone] DIAGNOSTIC IMAGING Diagnostic Imaging Report : [id number] Signed PATIENT: NASIR ROSARIO ACCT: [id number] UNIT: [id number] : 1955 LOC: ER ROOM / BED: / AGE / SEX: 69 / F ADM STATUS: REG ER SERVICE 43 ORDERING PHYSICIAN: TRENT KELLY MD PROCEDURE(s): RLDVT - RT Lower DVT REASON: r/o dvt ORDER NUMBER(s): [id number], ACCESSION NUMBER(s): [id number] RIGHT lower extremity venous duplex Clinical History: r/o dvt Comparison: US BILAT LOW EXT ART DUPLEX on DOS: 11/15/24, US BILAT LOWER DVT on DOS: 11/15/24, US LT LOWER DVT on DOS: 10/10/24 Technique: Duplex Doppler evaluation of the deep venous systems of RIGHT lower extremities from the common femoral veins to the popliteal veins including color Doppler and spectral/pulsed waveform analysis was performed. Findings: RIGHT SIDE: The common femoral vein demonstrates appropriate compressibility and waveform variability. There is compressibility/patency of the great saphenous vein at the proximal thigh. The femoral vein demonstrates appropriate compressibility and waveform variability. The deep femoral vein demonstrates appropriate compressibility and waveform variability. The popliteal vein demonstrates appropriate compressibility and waveform variability. There is normal compressibility at the tibioperoneal trunk. Impression: 1. No right femoropopliteal venous thrombosis. ATED BY: KADE ZAVALA Jr., DO DICTATED DATE/TIME: 12/09/242038 SIGNED BY: KADE ZAVALA Jr., DO SIGNED DATE/TIME: 12/09/242038 CC: [place] [id number] Ph: [phone] DIAGNOSTIC IMAGING Diagnostic Imaging Report : [id number] Signed PATIENT: NASIR ROSARIO ACCT: [id number] UNIT: [id number] : 1955 LOC: ER ROOM / BED: / AGE / SEX: 69 / F ADM STATUS: REG ER SERVICE 53 ORDERING PHYSICIAN: TRENT KELLY MD PROCEDURE(s): RLEAD - Rt Low Ext Art Duplex REASON: r/o ischemia ORDER NUMBER(s): [id number], ACCESSION NUMBER(s): [id number] BILATERAL Lower Extremity Arterial Duplex Date: 12/09/2024 08:05 PM Clinical History: r/o ischemia Comparison: US RT LOWER DVT on DOS: 12/09/24, US BILAT LOW EXT ART DUPLEX on DOS: 11/15/24, US BILAT LOWER DVT on DOS: 11/15/24 Technique: Duplex Doppler evaluation including color Doppler and spectral/pulsed waveform analysis of the lower extremity arteries was performed. Finding: RIGHT: Peak systolic velocities are as follows: HORSE RACE STARTER 318 cm/s triphasic waveform findings suggest greater than 75% stenosis in the right common femoral artery. Deep femoral 133 cm/s SFA proximal 144 cm/s SFA mid-portion 93 cm/s monophasic waveform SFA distal 162 cm/s biphasic waveform Popliteal 115 cm/s monophasic waveform Posterior tibial 87 cm/s monophasic waveform Dorsalis pedis 31 cm/s monophasic waveform The waveforms are triphasic biphasic and monophasic waveform. REFERENCE VALUES, [facility]) vascular Imaging Lab Criteria: Peak systolic velocity ranges (in cm/sec) are as follows: <150 cm/s - <20 % stenosis 150-200 cm/s - 20-49% stenosis 200-300 cm/s - 50-75% stenosis >300 cm/s -> 75% stenosis IMPRESSION: 1. 75% stenosis of the right common femoral artery. 2. Monophasic waveform in the mid right superficial femoral artery, popliteal artery, posterior tibial artery, dorsalis pedis. 3. There is no evidence for peripheral vascular insufficiency in the left lower extremity. ATED BY: KADE ZAVALA Jr. DO DICTATED DATE/TIME: 12/09/242056 SIGNED BY: KADE ZAVALA Jr., DO SIGNED DATE/TIME: 12/09/242056 CC: Time of 1ST Reevaluation: 18:30 Reevaluation 1ST: Unchanged Patient Education/Counseling: Treatment, Other (Need for admission) Family Education/Counseling: No Family Present SEPSIS Sepsis Screen Date sepsis recognized/suspect: Dec 09, 2024 Time Sepsis recognized/suspect: 1634 Recent Procedure: No On Antibiotic Therapy: No Respiratory Rate >20: No Heart Rate >90: No Temp<36 C (96.8 F) or >38.3 C: No SBP <90 or MAP <65 mmHG: No New Acute Mental Status Change: No Is the patient on CPAP, BIPAP,: No Physician Orders Electrocardigram (12/09/24 16:44) Electrocardigram (12/09/24 18:02) Chest Xray 1 View (12/09/24 18:02) Orthostatic Vital Signs (12/09/24 ) Rt Lower Dvt (12/09/24 19:44) Rt Low Ext Art Duplex (12/09/24 19:54) Vital Signs Date Time Temp Pulse Resp B/P (MAP) Pulse Ox O2 Delivery O2 Flow Rate FiO2 12/09/24 21:21 98.2 51 16 96/49 (65) 95 98.2 12/09/24 18:06 58 12/09/24 16:35 98.0 60 16 103/72 96 98.0 12/09/24 16:31 58 Laboratory Tests Test 12/09/24 18:20 White Blood Count 5.6 10^3/uL (4.4-10.8) Medications Medications Dose Ordered Sig/Alfonso Route Start Time Stop Time Status Last Admin Dose Admin Acetaminophen 650 mg ONCE ONCE PO 12/09/24 20:00 12/09/24 20:01 DC 12/10/24 02:53 Tramadol HCl 50 mg ONCE ONCE PO 12/09/24 20:00 12/09/24 20:01 DC 12/10/24 02:52 Departure 1 Departure Time of Disposition: 22:34 Impression: Primary Impression: Cellulitis Additional Impressions: Hypernatremia Lymphedema Disposition: ADMITTED INPATIENT Condition: Stable Comments MDM: 69-year-old female with chronic lymphedema, presents with a right lower extremity swelling and pain Ultrasound negative for DVT or peripheral arterial disease Antibiotics initiated in the ED for treatment of suspected cellulitis Patient admitted to hospitalist service for further treatment, evaluation and monitoring. Extensive evaluation was performed in attempt to identify or rule out: (See differential diagnosis section) The following tests were ordered, and results were reviewed by me and discussed with patient: (See diagnostic results section) The following test were independently interpreted by me: N/A I reviewed and agreed with the following test results read by other providers: Chest x-ray, I reviewed the following notes from the pt's past medical encounters: October 10, 2024, November 16, 2024, and November 29, 2024 encounters for lower extremity pain, bilateral lower extremity edema, and AFib, respectively Additional information was gathered from interviewing the following independent historians: EMS personnel Discussion of management or test interpretation with external physician/other qualified health disabilities caregiver: N/A Addressed an acute or chronic illness that poses a threat to life or bodily function: Cellulitis Decision regarding hospitalization or escalation of hospital level of care: Risk and benefits of admission for further treatment of patient's condition was considered. Due to patient's current clinical condition, high risk of decline and poor outcome if discharged and need for further inpatient management and monitoring, patient will be admitted to the hospital. Critical Care Note Critical Care Time?: No Stability Stability form required: No Heart Score Heart Score: Heart Score Response (Comments) Value History Slightly Suspicious 0 EKG Normal 0 Age >65 2 Risk Factors >3 or Hx ASHD 2 Troponin Normal limit 0 Total 4 I personally scribed for TRENT KELLY MD ([email or web address]) on 12/09/24 at 19:48. Electronically submitted by Carlo Zarco ([email or web address]). I personally scribed for TRENT KELLY MD ([email or web address]) on 12/09/24 at 20:04. Electronically submitted by Carlo Zarco ([email or web address]). I personally scribed for TRENT KELLY MD ([email or web address]) on 12/09/24 at 20:07. Electronically submitted by Carlo Zarco ([email or web address]). I personally scribed for TRENT KELLY MD ([email or web address]) on 12/09/24 at 20:07. Electronically submitted by Carlo Zarco ([email or web address]). I personally scribed for TRENT KELLY MD ([email or web address]) on 12/09/24 at 21:15. Electronically submitted by Carlo Zarco ([email or web address]). TRENT KELLY MD Dec 09, 2024 19:48
--- NOTE | 2024-12-09 20:41 | DVH ---
RIGHT lower extremity venous duplex Clinical History: r/o dvt Comparison: US BILAT LOW EXT ART DUPLEX on DOS: 11/15/24, US BILAT LOWER DVT on DOS: 11/15/24, US LT LO WER DVT on DOS: 10/10/24 Technique: Duplex Doppler evaluation of the deep venous systems of RIGHT lower extremities from the common femor al veins to the popliteal veins including color Doppler and spectral/pulsed waveform analysis was per formed. Findings: RIGHT SIDE: The common femoral vein demonstrates appropriate compressibility and waveform variability. There is compressibility/patency of the great saphenous vein at the proximal thigh. The femoral vein demonstrates appropriate compressibility and waveform variability. The deep femoral vein demonstrates appropriate compressibility and waveform variability. The popliteal vein demonstrates appropriate compressibility and waveform variability. There is normal compressibility at the tibioperoneal trunk. Impression: 1. No right femoropopliteal venous thrombosis.
--- NOTE | 2024-12-09 20:59 | DVH ---
BILATERAL Lower Extremity Arterial Duplex Date: 12/09/2024 08:05 PM Clinical History: r/o ischemia Comparison: US RT LOWER DVT on DOS: 12/09/24, US BILAT LOW EXT ART DUPLEX on DOS: 11/15/24, US BILAT LOW ER DVT on DOS: 11/15/24 Technique: Duplex Doppler evaluation including color Doppler and spectral/pulsed waveform analysis of the lower extremity arteries was performed. Finding: RIGHT: Peak systolic velocities are as follows: SUPERVISOR UNLOADING 318 cm/s triphasic waveform findings suggest greater than 75% stenosis in the right common femora l artery. Deep femoral 133 cm/s SFA proximal 144 cm/s SFA mid-portion 93 cm/s monophasic waveform SFA distal 162 cm/s biphasic waveform Popliteal 115 cm/s monophasic waveform Posterior tibial 87 cm/s monophasic waveform Dorsalis pedis 31 cm/s monophasic waveform The waveforms are triphasic biphasic and monophasic waveform. REFERENCE VALUES, [facility]) vascular Imaging Lab Criteria: Peak systolic velocity ranges (in cm/sec) are as follows: <150 cm/s - <20 % stenosis 150-200 cm/s - 20-49% stenosis 200-300 cm/s - 50-75% stenosis >300 cm/s -> 75% stenosis IMPRESSION: 1. 75% stenosis of the right common femoral artery. 2. Monophasic waveform in the mid right superficial femoral artery, popliteal artery, posterior tibia l artery, dorsalis pedis. 3. There is no evidence for peripheral vascular insufficiency in the left lower extremity.
[2024-12-09] MEDS ORDERED: ACETAMINOPHEN 325 MG TAB PO PRN (23:45)
[2024-12-09] MEDS ORDERED: ONDANSETRON HCL 4 MG/2 ML VIAL IV PRN (23:45)
[2024-12-10] MEDS: ACETAMINOPHEN 325 MG TAB PO ONE (02:53)
[2024-12-10] MEDS: cefTRIAXone 1GM/50ML D5W 50 ML IV ONE (03:00)
--- NOTE | 2024-12-10 03:48 | DVHHP2 ---
History of Present Illness Reason for Visit: Lower extremity swelling History of Present Illness 69-year-old female presents for evaluation of lower extremity swelling. Patient does have a history of chronic lymphedema to bilateral lower extremities. She states that over the past three days her right lower extremity has become more swollen and tender. She denies fever or chills. Denies any trauma to the area. No other acute complaints reported. Past Medical History Asthma, CAD, CHF, dyslipidemia, atrial fibrillation Past Surgical History Denies Family History Noncontributory Smoke: No ALCOHOL: none Drugs: None Lives: with Family Review of Systems Review of Systems Review of systems are currently negative otherwise addressed in HPI. Allergies: Coded Allergies: Sulfa Antibiotics (Verified Allergy, Unknown, 11/25/23) Amlodipine (Unverified Adverse Reaction, Unknown, 07/10/24) Peripheral edema Uncoded Allergies: Gauze (Allergy, Intermediate, 11/29/24) Per patient, causes skin to darken red. Informed to refuse gauze. Medications Current Medications Medications Dose Ordered Sig/Alfonso Route Start Time Stop Time Status Last Admin Dose Admin Clindamycin Phosphate 50 ml @ 50 mls/hr Q8HR IV 12/10/24 06:00 Atorvastatin Calcium 20 mg HS PO 12/10/24 22:00 Furosemide 40 mg DAILY PO 12/10/24 10:00 Gabapentin 100 mg TID PO 12/10/24 06:00 Acetaminophen/ Hydrocodone Bitart 1 tab Q4HP PRN PO 12/09/24 23:45 Ondansetron HCl 4 mg Q4HP PRN IV 12/09/24 23:45 Enoxaparin Sodium 40 mg DAILY SC 12/10/24 10:00 Acetaminophen 650 mg Q6HP PRN PO 12/09/24 23:45 Exam Vital Signs Vital Signs Date Time Temp Pulse Resp B/P (MAP) Pulse Ox O2 Delivery O2 Flow Rate FiO2 12/10/24 02:38 98.0 53 18 138/67 (90) 98 98.0 12/10/24 02:37 Room Air Exam Gen: 69-year-old female in mild distress Skin: Warm, dry, normal color and texture, no rash. HEENT: Normocephalic atraumatic, mucous membranes moist and pink. Neck: Cervical and supraclavicular nodes normal without enlargement, trachea is midline, thyroid gland is normal without masses. Pulmonary: Clear to auscultation and percussion bilaterally. Cardiac: Regular rate and rhythm. No murmur Abdomen: Soft, nontender, nondistended, bowel sounds present all 4 quadrants, no guarding, no rigidity, no organomegaly. Extremities: No cyanosis, clubbing, right lower extremity erythema with tenderness Neuro: Cranial nerves II through XII grossly intact, normal affect and speech, no focal motor deficits. Labs/Xrays ORDERING PHYSICIAN: TRENT KELLY MD PROCEDURE(s): RLEAD - Rt Low Ext Art Duplex REASON: r/o ischemia ORDER NUMBER(s): [id number], ACCESSION NUMBER(s): [id number] BILATERAL Lower Extremity Arterial Duplex Date: 12/09/2024 08:05 PM Clinical History: r/o ischemia Comparison: US RT LOWER DVT on DOS: 12/09/24, US BILAT LOW EXT ART DUPLEX on DOS: 11/15/24, US BILAT LOWER DVT on DOS: 11/15/24 Technique: Duplex Doppler evaluation including color Doppler and spectral/pulsed waveform analysis of the lower extremity arteries was performed. Finding: RIGHT: Peak systolic velocities are as follows: BINDING NICKER 318 cm/s triphasic waveform findings suggest greater than 75% stenosis in the right common femoral artery. Deep femoral 133 cm/s SFA proximal 144 cm/s SFA mid-portion 93 cm/s monophasic waveform SFA distal 162 cm/s biphasic waveform Popliteal 115 cm/s monophasic waveform Posterior tibial 87 cm/s monophasic waveform Dorsalis pedis 31 cm/s monophasic waveform The waveforms are triphasic biphasic and monophasic waveform. REFERENCE VALUES, [facility] ([facility]) vascular Imaging Lab Criteria: Peak systolic velocity ranges (in cm/sec) are as follows: <150 cm/s - <20 % stenosis 150-200 cm/s - 20-49% stenosis 200-300 cm/s - 50-75% stenosis >300 cm/s -> 75% stenosis IMPRESSION: 1. 75% stenosis of the right common femoral artery. 2. Monophasic waveform in the mid right superficial femoral artery, popliteal artery, posterior tibial artery, dorsalis pedis. 3. There is no evidence for peripheral vascular insufficiency in the left lower extremity. ATED BY: KADE JAMIL Jr., DO DICTATED DATE/TIME: 12/09/242056 SIGNED BY: KADE JAMIL Jr., Labs Test 12/09/24 23:48 12/09/24 18:20 Range/Units Lactic Acid Level 1.4 0.4-2.0 mmol/L White Blood Count 5.6 4.4-10.8 10^3/uL Red Blood Count 4.60 4.0-5.20 10^6/uL Hemoglobin 14.5 12.2-16.2 g/dL Hematocrit 41.9 36.0-46.0 % Mean Corpuscular Volume 91.2 80.0-100.0 fL Mean Corpuscular Hemoglobin 31.4 28.0-32.0 pg Mean Corpuscular Hemoglobin Concent 34.5 32.0-36.0 g/dL Red Cell Distribution Width 14.0 11.8-14.3 % Platelet Count 173 140-450 10^3/uL Mean Platelet Volume 12.1 H 6.9-10.8 fL Neutrophils (%) (Auto) 37.0-80.0 % Lymphocytes (%) (Auto) 10.0-50.0 % Monocytes (%) (Auto) 0.0-12.0 % Basophils (%) (Auto) 0.0-2.0 % Neutrophils # (Auto) 1.6-8.6 10 ^3/uL Lymphocytes # (Auto) 0.4-5.4 10 ^3/uL Monocytes # (Auto) 0-1.3 10 ^3/uL Differential Total Cells Counted 100.0 100 Neutrophils % (Manual) 43 37.0-80.0 Band Neutrophils % (Manual) 1 Lymphocytes % (Manual) 38 10.0-50.0 Monocytes % (Manual) 14 H 0-12 Eosinophils % (Manual) 0 0-7 Basophils % (Manual) 0 0.0-2.0 Metamyelocytes % (manual) 0 Myelocytes % (Manual) 0 Promyelocytes % (Manual) 0 Blast Cells % (Manual) 0 Reactive Lymphocytes 4 Platelet Estimate Adequate Sodium Level 147 H 136-145 mmol/L Potassium Level 4.1 3.5-5.1 mmol/L Chloride Level 111 H 98-107 mmol/L Carbon Dioxide Level 25 20-31 mmol/L Anion Gap 11 5-15 Blood Urea Nitrogen 37 H 9-23 mg/dL Creatinine 1.76 H 0.550-1.02 mg/dL Glomerular Filtration Rate Calc 31 >90 mL/min BUN/Creatinine Ratio 21.0 H 10.0-20.0 Serum Glucose 151 H 74-106 mg/dL Calcium Level 9.3 8.7-10.4 mg/dL Troponin I High Sensitivity 10 </=34 ng/L B-Type Natriuretic Peptide 63.33 0-100 pg/mL SEPSIS Sepsis Screen Date sepsis recognized/suspect: Dec 10, 2024 Time Sepsis recognized/suspect: 239 Recent Procedure: No On Antibiotic Therapy: No Respiratory Rate >20: No Heart Rate >90: No Temp<36 C (96.8 F) or >38.3 C: No SBP <90 or MAP <65 mmHG: No New Acute Mental Status Change: No Is the patient on CPAP, BIPAP,: No Physician Orders Rt Lower Dvt (12/09/24 19:44) Rt Low Ext Art Duplex (12/09/24 19:54) Clindamycin 600mg Iv (Cleocin Iv) (12/10/24 06:00) Blood Culture (12/09/24 23:32) Atorvastatin (Lipitor) (12/10/24 22:00) Furosemide Tablet (Lasix Tablet) (12/10/24 10:00) Gabapentin Capsule (Neurontin Capsule) (12/10/24 06:00) Basic Metabolic Panel (12/10/24 04:00) Admit (12/09/24 23:32) Hydrocodone-Acet 5/325mg Tab ([place] (12/09/24 23:45) Ondansetron Hcl (Zofran) (12/09/24 23:45) Enoxaparin Sodium (Lovenox) (12/10/24 10:00) Complete Blood Count (12/10/24 04:00) Cardiac Diet-2gna,Lofat,Lochol (12/10/24 Breakfast) Condition: Stable (12/09/24 23:32) Acetaminophen Tablet (Tylenol Tablet) (12/09/24 23:45) Bedrest With Bathroom Privileg (12/09/24 23:32) Vital Signs Date Time Temp Pulse Resp B/P (MAP) Pulse Ox O2 Delivery O2 Flow Rate FiO2 12/10/24 02:38 98.0 53 18 138/67 (90) 98 98.0 12/10/24 02:37 63 20 98 Room Air 12/10/24 02:37 98.0 63 20 138/67 (90) 98 98.0 12/09/24 21:21 98.2 51 16 96/49 (65) 95 98.2 Laboratory Tests Test 12/09/24 18:20 12/09/24 23:48 White Blood Count 5.6 10^3/uL (4.4-10.8) Lactic Acid Level 1.4 mmol/L (0.4-2.0) Medications Medications Dose Ordered Sig/Alfonso Route Start Time Stop Time Status Last Admin Dose Admin Acetaminophen 650 mg ONCE ONCE PO 12/09/24 20:00 12/09/24 20:01 DC 12/10/24 02:53 650 MG Tramadol HCl 50 mg ONCE ONCE PO 12/09/24 20:00 12/09/24 20:01 DC 12/10/24 02:52 50 MG Assessment/Plan Assessment/Plan Assessment Lower extremity cellulitis Chronic lymphedema Acute kidney injury Plan Admit the patient to [facility] to the hospitalist Clindamycin Resume home medications Continue treatment per orders. Plan discussed with: Patient My Orders Orders - RADHA HARRELL AGACNP Procedure Category Date Status Time Clindamycin 600mg Iv PHA 12/10/24 In Process (Cleocin Iv) 06:00 Blood Culture RK 12/09/24 In Process 23:32 Atorvastatin (Lipitor) PHA 12/10/24 In Process 22:00 Furosemide Tablet PHA 12/10/24 In Process (Lasix Tablet) 10:00 Gabapentin Capsule PHA 12/10/24 In Process (Neurontin Capsule) 06:00 Basic Metabolic Panel LAB 12/10/24 Logged 04:00 Admit ADMIT 12/09/24 Transmitted 23:32 Hydrocodone-Acet PHA 12/09/24 In Process 5/325mg Tab ([place] 23:45 Ondansetron Hcl PHA 12/09/24 In Process (Zofran) 23:45 Enoxaparin Sodium PHA 12/10/24 In Process (Lovenox) 10:00 Complete Blood Count LAB 12/10/24 Logged 04:00 Cardiac DIET 12/10/24 Transmitted Diet-2gna,Lofat,Lochol Breakfast Condition: Stable REX 8/4/25 In Process 23:32 Acetaminophen Tablet PHA 12/09/24 In Process (Tylenol Tablet) 23:45 Bedrest With Bathroom REX 12/09/24 In Process Privileg 23:32 Date of Service: Dec 10, 2024 Billing Provider: RADHA HARRELL Common Visit Codes: [id number] INP/OBS CARE (MOD) RADHA HARRELL Dec 10, 2024 03:48
[2024-12-10] MEDS: CLINDAMYCIN 600MG IV 50 ML IV ONE (04:02)
[2024-12-10] MEDS: GABAPENTIN 100 MG CAP PO SCH (06:00)
[2024-12-10] MEDS: CLINDAMYCIN 600MG IV 50 ML IV SCH (06:18)
[2024-12-10 06:51] LABS: Hematocrit 42.3 % (36.0-46.0); Hemoglobin 14.1 g/dL (12.2-16.2); Mean Corpuscular Hemoglobin 31.0 pg (28.0-32.0); Mean Corpuscular Volume 93.0 fL (80.0-100.0); Nucleated Red Blood Cells % 0.1 %
[2024-12-10 06:52] LABS: Potassium 3.7 mmol/L (3.5-5.1); Sodium 142 mmol/L (136-145)
[2024-12-10 06:53] LABS: Anion Gap 11 (5-15); Carbon Dioxide 22 mmol/L (20-31)
[2024-12-10 06:54] LABS: Calcium 8.9 mg/dL (8.7-10.4)
[2024-12-10 06:58] LABS: BUN/Creatinine Ratio 25.4 (10.0-20.0); Glucose 95 mg/dL (74-106)
[2024-12-10 06:59] LABS: Blood Urea Nitrogen 32 mg/dL (9-23); Chloride 109 mmol/L (98-107)
[2024-12-10] MEDS: ENOXAPARIN SOD 40 MG/0.4 ML SYRINGE SC SCH (09:49)
--- NOTE | 2024-12-10 09:53 | DVHPN2 ---
Subjective 69-year-old female with a history of chronic lymphedema in her legs, recurrent cellulitis, atrial fibrillation, bradycardia, hypertension, comes again with right leg cellulitis He is also bradycardic heart rate between 40-50 She was evaluated previously for her bradycardia, previous ejection fraction 55- 60% Changes from previous H/P or p: Changes Objective Vitals Vital Signs Date Time Temp Pulse Resp B/P (MAP) Pulse Ox O2 Delivery O2 Flow Rate FiO2 12/10/24 08:03 42 12/10/24 02:38 98.0 18 138/67 (90) 98 98.0 12/10/24 02:37 Room Air Intake/Output Intake and Output 12/10/24 07:00 Intake Total 50 ml Balance 50 ml Intake IV Total 50 ml General Appearance: Alert, Oriented X3, Cooperative Extremities: Other (1+ edema bilaterally in the legs) Medications Current Medications Medications Dose Ordered Sig/Alfonso Route Start Time Stop Time Status Last Admin Dose Admin Clindamycin Phosphate 50 ml @ 50 mls/hr Q8HR IV 12/10/24 06:00 12/10/24 06:18 50 MLS/HR Atorvastatin Calcium 20 mg HS PO 12/10/24 22:00 Furosemide 40 mg DAILY PO 12/10/24 10:00 Gabapentin 100 mg TID PO 12/10/24 06:00 Acetaminophen/ Hydrocodone Bitart 1 tab Q4HP PRN PO 12/09/24 23:45 Ondansetron HCl 4 mg Q4HP PRN IV 12/09/24 23:45 Enoxaparin Sodium 40 mg DAILY SC 12/10/24 10:00 Acetaminophen 650 mg Q6HP PRN PO 12/09/24 23:45 Laboratory Results Laboratory Tests 12/10/24 06:06 Chemistry Test 12/09/24 18:20 12/10/24 06:06 Calcium Level 9.3 mg/dL (8.7-10.4) 8.9 mg/dL (8.7-10.4) Cardiac Markers Test 12/09/24 18:20 B-Type Natriuretic Peptide 63.33 pg/mL (0-100) Assessment/Plan Assessment/Plan Right lower extremity cellulitis Bradycardia History of atrial fibrillation Hypertension Dyslipidemia Acute kidney injury Plan IV clindamycin for the cellulitis Bradycardia: Consult cardiology Lovenox prophylactically [place] p.r.n. for pain Monitor closely Full code Plan discussed with: Patient Date of Service: Dec 10, 2024 Billing Provider: RUSSELL CORONA MD Common Visit Codes: NOT BILLABLE RUSSELL CORONA MD Dec 10, 2024 09:53
[2024-12-10] MEDS: FUROSEMIDE 40 MG TAB PO SCH (09:55)
--- NOTE | 2024-12-10 10:30 | DVHINCON2 ---
Date Seen: Dec 10, 2024 Referring Physician MD Lindsay Reason for Consultation Bradycardia History of Present Illness This is a 69-year-old female patient who presents to emergency room with chief complaint of generalized weakness, bilateral lower extremity swelling, and decreased appetite. The patient reports symptoms began three days prior to emergency room arrival. Cardiology has now been consulted at this time for bradycardia. Initial twelve lead electrocardiogram reveals sinus bradycardia with artifact. The patient denies any lightheadedness, dizziness, chest pain, or shortness of breath. The patient reports that she is normally bradycardic with her usual heart rate around 52 beats per minute. Significant past medical history includes congestive heart failure, hypertension, dyslipidemia, atrial fibrillation (not on NOAC therapy), peripheral arterial disease with three stents in her right leg and one stent in her left leg, chronic lymphedema, and peripheral neuropathy. On previous admission to this facility, the patient was diagnosed with atrial fibrillation with rapid ventricular response. Upon reviewing external medication reconciliation, the patient was not started on NOAC therapy. The patient denies ever being diagnosed with atrial fibrillation. The patient reports that she follows up with job service consultant in the outpatient setting. Past Medical History Past medical history reviewed. No other significant than mentioned above. Past Surgical History Peripheral angiogram with three stents to right leg and one stent to left leg Family History: Cardiovascular disease G8 MOTHER (GALLBLADDER STONES), , Age: 90, Onset:60 years & older (had cancer but mother from gallbladder per patient) family hx1, , Age: 95, Onset:60 years & older (heart attack) FHx: bladder cancer G8 MOTHER (GALLBLADDER STONES), , Age: 90, Onset:60 years & older Family History Family history reviewed. Social History Denies the use of tobacco, alcohol or illicit drugs. Allergies: Coded Allergies: Sulfa Antibiotics (Verified Allergy, Unknown, 11/25/23) Amlodipine (Unverified Adverse Reaction, Unknown, 07/10/24) Peripheral edema Uncoded Allergies: Gauze (Allergy, Intermediate, 11/29/24) Per patient, causes skin to darken red. Informed to refuse gauze. Home Meds Active Scripts Spironolactone (Aldactone) 25 Mg Tab, 1 TAB PO DAILY, #30 TAB 5 Refills Prov:RUSSELL CORONA MD 12/02/24 Doxycycline Monohydrate (Doxycycline Monohydrate) 100 Mg Cap, 1 CAP PO BID, #14 CAP Prov:RUSSELL CORONA MD 12/02/24 Furosemide (Furosemide) 40 Mg Tab, 1 TAB PO DAILY, #90 TAB 1 Refill Prov:AWA MILTON MD 11/19/24 Atorvastatin Calcium (ATORVASTATIN CALCIUM) 20 Mg Tab, 20 MG PO HS, #60 TAB Prov:AWA MILTON MD 11/19/24 Spironolactone (Spironolactone) 25 Mg Tab, 1 TAB PO DAILY, #60 TAB Prov:AWA MILTON MD 11/19/24 Reported Medications Olmesartan Medoxomil (Olmesartan Medoxomil) 20 Mg Tab, 1 TAB PO DAILY 11/29/24 Gabapentin (Gabapentin) 100 Mg Cap, 100 MG PO TID 11/29/24 Tramadol Hcl (Tramadol Hcl) 50 Mg Tab, 1-2 TAB PO BID PRN for 30 Days, #120 08/01/24 Home Meds Home medications reviewed. Current Medications Current Medications Medications (Trade) Dose Ordered Sig/Alfonso Route PRN Reason Start Time Stop Time Status Last Admin Clindamycin Phosphate 50 ml @ 50 mls/hr Q8HR IV 12/10/24 06:00 12/10/24 06:18 Atorvastatin Calcium (Lipitor) 20 mg HS PO 12/10/24 22:00 Furosemide (Lasix Tablet) 40 mg DAILY PO 12/10/24 10:00 12/10/24 09:55 Gabapentin (Neurontin Capsule) 100 mg TID PO 12/10/24 06:00 Acetaminophen/ Hydrocodone Bitart ([place] 5/325MG Tab) 1 tab Q4HP PRN PO MODERATE PAIN (4-6 PAIN SCALE) 12/09/24 23:45 Ondansetron HCl (Zofran) 4 mg Q4HP PRN IV NAUSEA / VOMITING 12/09/24 23:45 Enoxaparin Sodium (Lovenox) 40 mg DAILY SC 12/10/24 10:00 12/10/24 09:49 Acetaminophen (Tylenol Tablet) 650 mg Q6HP PRN PO PAIN SCALE 1-3 OR TEMP>100.4 12/09/24 23:45 Review of Systems Constitutional: Generalized weakness Ears, Nose, & Throat: No symptom reported Eyes: No symptom reported Neurological: No symptoms reported Pulmonary/Respiratory: No symptoms reported Cardiovascular: No symptom reported Gastrointestinal: Decreased appetite Genitourinary: No symptom reported Musculoskeletal: No symptom reported Skin: No symptom reported Psychiatric: No symptom reported Endocrine: No symptom reported Hematologic/Lymphatic: No symptom reported Vital Signs Vital Signs Date Time Temp Pulse Resp B/P (MAP) Pulse Ox O2 Delivery O2 Flow Rate FiO2 12/10/24 09:55 126/46 12/10/24 08:03 42 12/10/24 02:38 98.0 18 98 98.0 12/10/24 02:37 Room Air Physical Exam General Appearance: Cooperative. Well-developed. Well-nourished. No acute distress. Pulmonary/Respiratory: Clear, bilateral breaths sounds. Cardiovascular/Chest: Regular rate and rhythm. Peripheral Pulses: 2+ Radial (R). 2+ Radial (L). Abdominal Exam: Normal bowel sounds. Ankle Exam: 4+ pitting edema Lower extremities: 4+ pitting edema Neuro/Mental Status: A/OX4, coherent. Thoughts/Psych: Normal thought pattern. Appropriate mood and affect. Good judgment and insight. Appearance: No acute distress. Skin Exam: Left lower extremity wrapped with dressing. Right lower extremity with blisters. Labs/Diagnostic Data Labs Test 12/10/24 06:06 12/09/24 23:48 12/09/24 18:20 Range/Units White Blood Count 5.6 4.4-10.8 10^3/uL Red Blood Count 4.55 4.0-5.20 10^6/uL Hemoglobin 14.1 12.2-16.2 g/dL Hematocrit 42.3 36.0-46.0 % Mean Corpuscular Volume 93.0 80.0-100.0 fL Mean Corpuscular Hemoglobin 31.0 28.0-32.0 pg Mean Corpuscular Hemoglobin Concent 33.4 32.0-36.0 g/dL Red Cell Distribution Width 14.4 H 11.8-14.3 % Platelet Count 150 140-450 10^3/uL Mean Platelet Volume 11.9 H 6.9-10.8 fL Neutrophils (%) (Auto) 47.4 37.0-80.0 % Lymphocytes (%) (Auto) 34.8 10.0-50.0 % Monocytes (%) (Auto) 16.0 H 0.0-12.0 % Eosinophils (%) (Auto) 1.5 0.0-7.0 % Basophils (%) (Auto) 0.3 0.0-2.0 % Neutrophils # (Auto) 2.6 1.6-8.6 10 ^3/uL Lymphocytes # (Auto) 1.9 0.4-5.4 10 ^3/uL Monocytes # (Auto) 0.9 0-1.3 10 ^3/uL Eosinophils # (Auto) 0.1 0-0.8 10 ^3/uL Basophils # (Auto) 0 0-0.2 10 ^3/uL Nucleated Red Blood Cells 0.1 % Sodium Level 142 # 136-145 mmol/L Potassium Level 3.7 3.5-5.1 mmol/L Chloride Level 109 H 98-107 mmol/L Carbon Dioxide Level 22 20-31 mmol/L Anion Gap 11 5-15 Blood Urea Nitrogen 32 H 9-23 mg/dL Creatinine 1.26 H 0.550-1.02 mg/dL Glomerular Filtration Rate Calc 46 >90 mL/min BUN/Creatinine Ratio 25.4 H 10.0-20.0 Serum Glucose 95 74-106 mg/dL Calcium Level 8.9 8.7-10.4 mg/dL Lactic Acid Level 1.4 0.4-2.0 mmol/L Differential Total Cells Counted 100.0 100 Neutrophils % (Manual) 43 37.0-80.0 Band Neutrophils % (Manual) 1 Lymphocytes % (Manual) 38 10.0-50.0 Monocytes % (Manual) 14 H 0-12 Eosinophils % (Manual) 0 0-7 Basophils % (Manual) 0 0.0-2.0 Metamyelocytes % (manual) 0 Myelocytes % (Manual) 0 Promyelocytes % (Manual) 0 Blast Cells % (Manual) 0 Reactive Lymphocytes 4 Platelet Estimate Adequate Troponin I High Sensitivity 10 </=34 ng/L B-Type Natriuretic Peptide 63.33 0-100 pg/mL Assessment Sinus bradycardia Chronic compensated HFpEF, NYHA class II Transient atrial fibrillation (not on NOAC therapy) Peripheral arterial disease with four stents (3 FRANKIE to R lower extremity, 1 FRANKIE to left lower extremity) Chronic lymphedema Acute kidney injury Peripheral neuropathy Obesity Plan/Recommendation We will continue with the following plan/recommendations (Dr. Alvarado): Previous transthoracic echocardiogram from 11/16/2024 reveals an EF of 55-60%. At this time, we will upgrade the patient to telemetry for closer cardiac monitoring; call cardiology team immediately for any ECG changes such as pauses or atrioventricular blocks. lunchroom monitor in the emergency room reviewed, episodes of bradycardia noted without any pauses or atrioventricular blocks. At this time, no indication for permanent pacemaker or temporary pacemaker. Avoid all AV esdras blocking agents. The patient has been recommended in the past to avoid atrioventricular blocking agents given a low baseline heart rate. She is currently on Clonidine therapy which can be the culprit of bradycardia. Recommend an outpatient event monitor. Follow-up with primary job service consultant as scheduled. There is no further cardiac workup indicated at this time. Kindly call if in need to re-consult. Thank you for allowing us to participate in this patient's care. This medical document was created using an electronic medical record system with voice recognition software and computerized dictation system. Although this document has been carefully reviewed, there might still be some phonetic and typographical errors. Occasional wrong-word or ``sound-alike substitutions may have occurred due to the inherent limitations of voice recognition software. These areas are purely typographical due to imperfections of the software programs and do not reflect any compromise in the patient's medical care. Please read the chart carefully and recognize, using context, where these substitutions have occurred. Plan discussed with: Patient NYHA Physical activity limitations: Class2(Slight)fatigue,sob (palpitatns, angina w activityv) Date of Service: Dec 10, 2024 Billing Provider: MARTY HUNTER Cardiology Common Codes: [id number] INP/OBS CARE (High) Cardiology Consultation Codes: [id number] CONSULT <45MIN MARTY HUNTER Dec 10, 2024 10:30
[2024-12-10 11:52] VITALS: BP 117/49; PULSE 45; RESP 13; TEMP 97.4; O2SAT 99
[2024-12-10 13:22] LABS: Magnesium 2.1 mg/dL (1.6-2.6); Triglycerides 104.0 mg/dL (< 150)
[2024-12-10 13:24] LABS: Cholesterol 78.0 mg/dL (< 200)
[2024-12-10 13:25] LABS: HDL Cholesterol 33.0 mg/dL (40-59)
[2024-12-10 18:00] VITALS: BP 137/54; PULSE 41; RESP 17; TEMP 97.6; O2SAT 98
[2024-12-10] MEDS: HYDROcodone-ACET 5/325MG TAB PO PRN (19:04)
[2024-12-10 20:00] VITALS: PULSE 47; PULSE 73; RESP 18; O2SAT 98
[2024-12-10 21:00] VITALS: BP 113/66; PULSE 52; RESP 17; TEMP 97.3; O2SAT 100
[2024-12-10] MEDS: ATORVASTATIN 20 MG TAB PO SCH (21:31)
--- NOTE | 2024-12-10 21:55 | DVHINCON2 ---
Date Seen: Dec 10, 2024 Referring Physician MD Lindsay Reason for Consultation Bradycardia History of Present Illness This is a 69-year-old female with a past medical history of congestive heart failure, hypertension, dyslipidemia, atrial fibrillation (not on NOAC therapy), peripheral arterial disease with three stents in her right leg and one stent in her left leg, chronic lymphedema, and peripheral neuropathy who presents to ED with a complaint of generalized weakness, bilateral lower extremity swelling, and decreased appetite. Patient reports symptoms began three days prior to arrival. Cardiology has now been consulted at this time for bradycardia. Initial twelve lead electrocardiogram reveals sinus bradycardia with artifact. Patient denies any lightheadedness, dizziness, chest pain, or shortness of breath. The patient reports that she is normally bradycardic with her usual heart rate around 52 beats per minute. On previous admission to this facility, the patient was diagnosed with atrial fibrillation with rapid ventricular response. Upon reviewing external medication reconciliation, the patient was not started on NOAC therapy. The patient denies ever being diagnosed with atrial fibrillation. The patient reports that she follows up with carpenter helper hardwood flooring in the outpatient setting. Past Medical History Past medical history reviewed. No other significant than mentioned above. Past Surgical History Peripheral angiogram with three stents to right leg and one stent to left leg Family History: Cardiovascular disease G8 MOTHER (GALLBLADDER STONES), , Age: 90, Onset:60 years & older (had cancer but mother from gallbladder per patient) family hx1, , Age: 95, Onset:60 years & older (heart attack) FHx: bladder cancer G8 MOTHER (GALLBLADDER STONES), , Age: 90, Onset:60 years & older Allergies: Coded Allergies: Sulfa Antibiotics (Verified Allergy, Unknown, 11/25/23) Amlodipine (Unverified Adverse Reaction, Unknown, 07/10/24) Peripheral edema Uncoded Allergies: Gauze (Allergy, Intermediate, 11/29/24) Per patient, causes skin to darken red. Informed to refuse gauze. Home Meds Active Scripts Spironolactone (Aldactone) 25 Mg Tab, 1 TAB PO DAILY, #30 TAB 5 Refills Prov:RUSSELL CORONA MD 12/02/24 Doxycycline Monohydrate (Doxycycline Monohydrate) 100 Mg Cap, 1 CAP PO BID, #14 CAP Prov:RUSSELL CORONA MD 12/02/24 Furosemide (Furosemide) 40 Mg Tab, 1 TAB PO DAILY, #90 TAB 1 Refill Prov:AWA MILTON MD 11/19/24 Atorvastatin Calcium (ATORVASTATIN CALCIUM) 20 Mg Tab, 20 MG PO HS, #60 TAB Prov:AWA MILTON MD 11/19/24 Spironolactone (Spironolactone) 25 Mg Tab, 1 TAB PO DAILY, #60 TAB Prov:AWA MILTON MD 11/19/24 Reported Medications Olmesartan Medoxomil (Olmesartan Medoxomil) 20 Mg Tab, 1 TAB PO DAILY 11/29/24 Gabapentin (Gabapentin) 100 Mg Cap, 100 MG PO TID 11/29/24 Tramadol Hcl (Tramadol Hcl) 50 Mg Tab, 1-2 TAB PO BID PRN for 30 Days, #120 08/01/24 Current Medications Current Medications Medications (Trade) Dose Ordered Sig/Alfonso Route PRN Reason Start Time Stop Time Status Last Admin Clindamycin Phosphate 50 ml @ 50 mls/hr Q8HR IV 12/10/24 06:00 12/10/24 14:47 Atorvastatin Calcium (Lipitor) 20 mg HS PO 12/10/24 22:00 Furosemide (Lasix Tablet) 40 mg DAILY PO 12/10/24 10:00 12/10/24 09:55 Gabapentin (Neurontin Capsule) 100 mg TID PO 12/10/24 06:00 12/10/24 14:00 Acetaminophen/ Hydrocodone Bitart ([place] 5/325MG Tab) 1 tab Q4HP PRN PO MODERATE PAIN (4-6 PAIN SCALE) 12/09/24 23:45 Ondansetron HCl (Zofran) 4 mg Q4HP PRN IV NAUSEA / VOMITING 12/09/24 23:45 Enoxaparin Sodium (Lovenox) 40 mg DAILY SC 12/10/24 10:00 12/10/24 09:49 Acetaminophen (Tylenol Tablet) 650 mg Q6HP PRN PO PAIN SCALE 1-3 OR TEMP>100.4 12/09/24 23:45 Aspirin 81 mg DAILY PO 12/11/24 10:00 Review of Systems Constitutional: Generalized weakness Ears, Nose, & Throat: No symptom reported Eyes: No symptom reported Neurological: No symptoms reported Pulmonary/Respiratory: No symptoms reported Cardiovascular: No symptom reported Gastrointestinal: Decreased appetite Genitourinary: No symptom reported Musculoskeletal: No symptom reported Skin: No symptom reported Psychiatric: No symptom reported Endocrine: No symptom reported Hematologic/Lymphatic: No symptom reported Vital Signs Vital Signs Date Time Temp Pulse Resp B/P (MAP) Pulse Ox O2 Delivery O2 Flow Rate FiO2 12/10/24 11:52 97.4 45 13 117/49 (71) 99 97.4 12/10/24 10:41 Room Air* 0 21 Physical Exam GENERAL: Alert and oriented x 3. No acute distress. EYES: PERRL, EOMI. Anicteric. HENT: Moist mucous membranes. LUNGS: Clear to auscultation bilaterally. CARDIOVASCULAR: Regular rate and rhythm. ABDOMEN: Soft, nontender and nondistended. EXTREMITIES: 4+ pitting edema. NEUROLOGIC: No focal neurological deficits. SKIN: Left lower extremity wrapped with dressing. Right lower extremity with blisters. Labs/Diagnostic Data Labs Test 12/10/24 06:06 12/09/24 23:48 12/09/24 18:20 Range/Units White Blood Count 5.6 4.4-10.8 10^3/uL Red Blood Count 4.55 4.0-5.20 10^6/uL Hemoglobin 14.1 12.2-16.2 g/dL Hematocrit 42.3 36.0-46.0 % Mean Corpuscular Volume 93.0 80.0-100.0 fL Mean Corpuscular Hemoglobin 31.0 28.0-32.0 pg Mean Corpuscular Hemoglobin Concent 33.4 32.0-36.0 g/dL Red Cell Distribution Width 14.4 H 11.8-14.3 % Platelet Count 150 140-450 10^3/uL Mean Platelet Volume 11.9 H 6.9-10.8 fL Neutrophils (%) (Auto) 47.4 37.0-80.0 % Lymphocytes (%) (Auto) 34.8 10.0-50.0 % Monocytes (%) (Auto) 16.0 H 0.0-12.0 % Eosinophils (%) (Auto) 1.5 0.0-7.0 % Basophils (%) (Auto) 0.3 0.0-2.0 % Neutrophils # (Auto) 2.6 1.6-8.6 10 ^3/uL Lymphocytes # (Auto) 1.9 0.4-5.4 10 ^3/uL Monocytes # (Auto) 0.9 0-1.3 10 ^3/uL Eosinophils # (Auto) 0.1 0-0.8 10 ^3/uL Basophils # (Auto) 0 0-0.2 10 ^3/uL Nucleated Red Blood Cells 0.1 % Sodium Level 142 # 136-145 mmol/L Potassium Level 3.7 3.5-5.1 mmol/L Chloride Level 109 H 98-107 mmol/L Carbon Dioxide Level 22 20-31 mmol/L Anion Gap 11 5-15 Blood Urea Nitrogen 32 H 9-23 mg/dL Creatinine 1.26 H 0.550-1.02 mg/dL Glomerular Filtration Rate Calc 46 >90 mL/min BUN/Creatinine Ratio 25.4 H 10.0-20.0 Serum Glucose 95 74-106 mg/dL Hemoglobin A1c 5.7 <5.7 % A1C Calcium Level 8.9 8.7-10.4 mg/dL Magnesium Level 2.1 1.6-2.6 mg/dL Triglycerides Level 104 < 150 mg/dL Cholesterol Level 78 < 200 mg/dL LDL Cholesterol 30 < 100 mg/dL HDL Cholesterol 33 L 40-59 mg/dL Thyroid Stimulating Hormone (TSH) 1.45 0.55-4.78 uIU/mL Lactic Acid Level 1.4 0.4-2.0 mmol/L Differential Total Cells Counted 100.0 100 Neutrophils % (Manual) 43 37.0-80.0 Band Neutrophils % (Manual) 1 Lymphocytes % (Manual) 38 10.0-50.0 Monocytes % (Manual) 14 H 0-12 Eosinophils % (Manual) 0 0-7 Basophils % (Manual) 0 0.0-2.0 Metamyelocytes % (manual) 0 Myelocytes % (Manual) 0 Promyelocytes % (Manual) 0 Blast Cells % (Manual) 0 Reactive Lymphocytes 4 Platelet Estimate Adequate Troponin I High Sensitivity 10 </=34 ng/L B-Type Natriuretic Peptide 63.33 0-100 pg/mL Assessment Sinus bradycardia. Chronic compensated HFpEF, NYHA class II. Transient atrial fibrillation (not on NOAC therapy). Peripheral arterial disease with four stents (3 FRANKIE to R lower extremity, 1 FRANKIE to left lower extremity). Chronic lymphedema. Acute kidney injury. Peripheral neuropathy. Obesity. Plan/Recommendation I agree with your ongoing assessment and care of plan. Patient has been seen by Nola Hunt NP on my behalf, her and I discussed the plan with the patient. Previous transthoracic echocardiogram from 11/16/2024 reveals an EF of 55-60%. At this time, we will upgrade the patient to telemetry for closer cardiac monitoring; call cardiology team immediately for any ECG changes such as pauses or atrioventricular blocks. personnel monitor in the emergency room reviewed, episodes of bradycardia noted without any pauses or atrioventricular blocks. At this time, no indication for permanent pacemaker or temporary pacemaker. Avoid all AV esdras blocking agents. The patient has been recommended in the past to avoid atrioventricular blocking agents given a low baseline heart rate. She is currently on Clonidine therapy which can be the culprit of bradycardia. Recommend an outpatient event monitor. Follow-up with primary carpenter helper hardwood flooring as scheduled. Additional plan as per the hospital course. Plan discussed with: Patient NYHA Physical activity limitations: Class2(Slight)fatigue,sob Date of Service: Dec 10, 2024 Billing Provider: LYNN ARMANDO MD Cardiology Common Codes: [id number] INP/OBS CARE (High) Cardiology Consultation Codes: [id number] CONSULT <45MIN LYNN ARMANDO MD Dec 10, 2024 15:54
[2024-12-11] VITALS (8 sets, daily range): BP systolic 107–128; BP diastolic 49–79; PULSE 39–90; RESP 15–18; TEMP 86.4–97.9; O2SAT 95–100
--- NOTE | 2024-12-11 09:48 | DVHPN2 ---
Subjective No new complaints Cardiology saw the patient recommended no pacemaker Changes from previous H/P or p: Changes Objective Vitals Vital Signs Date Time Temp Pulse Resp B/P (MAP) Pulse Ox O2 Delivery O2 Flow Rate FiO2 12/11/24 05:00 97.3 44 18 117/63 (81) 100 97.3 12/10/24 20:00 Room Air* 0 21 Intake/Output Intake and Output 12/11/24 07:00 Intake Total 750 ml Balance 750 ml Intake Oral 550 ml IV Total 200 ml # Voids 4 General Appearance: Alert, Oriented X3, Cooperative Extremities: Other (1+ edema bilaterally in the legs) Medications Current Medications Medications Dose Ordered Sig/Alfonso Route Start Time Stop Time Status Last Admin Dose Admin Clindamycin Phosphate 50 ml @ 50 mls/hr Q8HR IV 12/10/24 06:00 12/11/24 05:35 50 MLS/HR Atorvastatin Calcium 20 mg HS PO 12/10/24 22:00 12/10/24 21:31 20 MG Furosemide 40 mg DAILY PO 12/10/24 10:00 12/10/24 09:55 40 MG Gabapentin 100 mg TID PO 12/10/24 06:00 12/11/24 05:33 100 MG Acetaminophen/ Hydrocodone Bitart 1 tab Q4HP PRN PO 12/09/24 23:45 12/11/24 05:34 1 TAB Ondansetron HCl 4 mg Q4HP PRN IV 12/09/24 23:45 Enoxaparin Sodium 40 mg DAILY SC 12/10/24 10:00 12/10/24 09:49 40 MG Acetaminophen 650 mg Q6HP PRN PO 12/09/24 23:45 Aspirin 81 mg DAILY PO 12/11/24 10:00 Laboratory Results Laboratory Tests 12/10/24 06:06 Microbiology Microbiology Date/Time Source Procedure Growth Status 12/09/24 23:58 Blood Blood Culture - Preliminary NO GROWTH AFTER 24 HOURS OF INCUBATION. Resulted Assessment/Plan Assessment/Plan Right lower extremity cellulitis Bradycardia History of atrial fibrillation Hypertension Dyslipidemia Acute kidney injury Plan IV clindamycin for the cellulitis Bradycardia: Consult cardiology Lovenox prophylactically [place] p.r.n. for pain Monitor closely Full code 12/11/2024: Continue IV antibiotics Monitor the heart rate on telemetry Lasix 40 mg daily Aspirin Lipitor Tylenol p.r.n. Hydrocodone p.r.n. [place] p.r.n. Plan discussed with: Patient My Orders Orders - RUSSELL CORONA MD Procedure Category Date Status Time * Cardiology Consult CONS 12/10/24 Transmitted 09:49 Code Status CODE 12/10/24 Transmitted 09:50 Date of Service: Dec 11, 2024 Billing Provider: RUSSELL CORONA MD Common Visit Codes: NOT BILLABLE RUSSELL CORONA MD Dec 11, 2024 09:48
--- NOTE | 2024-12-11 23:57 | DVHPN2 ---
Progress Note - Dictate Date Seen: Dec 11, 2024 Medical Necessity Reason Pt with a Central, PICC or Fol: No Subjective Patient was seen and evaluated in follow up. Patient is complaining of generalized pain. Patient is not indicated for PPM at this time. vital signs Vital Sign Date Time Temp Pulse Resp B/P (MAP) Pulse Ox O2 Delivery O2 Flow Rate FiO2 12/11/24 16:59 97.9 47 16 107/49 (68) 98 97.9 12/11/24 08:00 Room Air* 0 21 Total Intake and Output 12/10/24 12/10/24 12/11/24 15:00 23:00 07:00 Intake Total 150 ml 200 ml 400 ml Balance 150 ml 200 ml 400 ml medications Current Medications Medications Dose Ordered Sig/Alfonso Route Start Time Stop Time Status Last Admin Dose Admin Clindamycin Phosphate 50 ml @ 50 mls/hr Q8HR IV 12/10/24 06:00 12/11/24 15:32 50 MLS/HR Atorvastatin Calcium 20 mg HS PO 12/10/24 22:00 12/10/24 21:31 20 MG Furosemide 40 mg DAILY PO 12/10/24 10:00 12/11/24 11:59 40 MG Gabapentin 100 mg TID PO 12/10/24 06:00 12/11/24 05:33 100 MG Acetaminophen/ Hydrocodone Bitart 1 tab Q4HP PRN PO 12/09/24 23:45 12/11/24 12:00 1 TAB Ondansetron HCl 4 mg Q4HP PRN IV 12/09/24 23:45 Enoxaparin Sodium 40 mg DAILY SC 12/10/24 10:00 12/10/24 09:49 40 MG Acetaminophen 650 mg Q6HP PRN PO 12/09/24 23:45 Aspirin 81 mg DAILY PO 12/11/24 10:00 12/11/24 11:59 81 MG objective GENERAL: Alert and oriented x 3. No acute distress. EYES: PERRL, EOMI. Anicteric. HENT: Moist mucous membranes. LUNGS: Clear to auscultation bilaterally. CARDIOVASCULAR: Regular rate and rhythm. ABDOMEN: Soft, nontender and nondistended. EXTREMITIES: 4+ pitting edema. NEUROLOGIC: No focal neurological deficits. SKIN: Left lower extremity wrapped with dressing. Right lower extremity with blisters. laboratory and microbiology Laboratory Tests 12/10/24 06:06 Test 12/10/24 06:06 Range/Units Serum Glucose 95 74-106 mg/dL Problem List Sinus bradycardia. Chronic compensated HFpEF, NYHA class II. Transient atrial fibrillation (not on NOAC therapy). Peripheral arterial disease with four stents (3 FRANKIE to R lower extremity, 1 FRANKIE to left lower extremity). Chronic lymphedema. Acute kidney injury. Peripheral neuropathy. Obesity. Assessment/Plan Continued all current supportive medical care. [place] for pain management. Aspirin, Lipitor. IV antibiotics as ordered. DVT prophylactics. Diuretics with Lasix. Additional plan as per the hospital course. Plan discussed with: Patient LYNN ARMANDO MD Dec 11, 2024 17:58
[2024-12-12] VITALS (9 sets, daily range): BP systolic 107–155; BP diastolic 42–74; PULSE 44–60; RESP 16–18; TEMP 96.8–97.8; O2SAT 96–99
--- NOTE | 2024-12-12 13:29 | DVHPN2 ---
Subjective No new complaints Cardiology saw the patient recommended no pacemaker Changes from previous H/P or p: Changes Objective Vitals Vital Signs Date Time Temp Pulse Resp B/P (MAP) Pulse Ox O2 Delivery O2 Flow Rate FiO2 12/12/24 13:00 96.8 45 18 155/42 (79) 97 96.8 12/12/24 08:00 Room Air* 0 21 Intake/Output Intake and Output 12/12/24 07:00 Intake Total 1600 ml Balance 1600 ml Intake Oral 1500 ml IV Total 100 ml # Voids 9 General Appearance: Alert, Oriented X3, Cooperative Extremities: Other (1+ edema bilaterally in the legs) Medications Current Medications Medications Dose Ordered Sig/Alfonso Route Start Time Stop Time Status Last Admin Dose Admin Clindamycin Phosphate 50 ml @ 50 mls/hr Q8HR IV 12/10/24 06:00 12/12/24 06:00 50 MLS/HR Atorvastatin Calcium 20 mg HS PO 12/10/24 22:00 12/11/24 21:36 20 MG Furosemide 40 mg DAILY PO 12/10/24 10:00 12/11/24 11:59 40 MG Gabapentin 100 mg TID PO 12/10/24 06:00 12/11/24 05:33 100 MG Acetaminophen/ Hydrocodone Bitart 1 tab Q4HP PRN PO 12/09/24 23:45 12/12/24 06:37 1 TAB Ondansetron HCl 4 mg Q4HP PRN IV 12/09/24 23:45 Enoxaparin Sodium 40 mg DAILY SC 12/10/24 10:00 12/12/24 09:51 40 MG Acetaminophen 650 mg Q6HP PRN PO 12/09/24 23:45 Aspirin 81 mg DAILY PO 12/11/24 10:00 12/12/24 09:50 81 MG Laboratory Results Laboratory Tests 12/10/24 06:06 Microbiology Microbiology Date/Time Source Procedure Growth Status 12/09/24 23:58 Blood Blood Culture - Preliminary NO GROWTH AFTER 48 HOURS OF INCUBATION. Resulted Assessment/Plan Assessment/Plan Right lower extremity cellulitis Bradycardia History of atrial fibrillation Hypertension Dyslipidemia Acute kidney injury Plan IV clindamycin for the cellulitis Bradycardia: Consult cardiology Lovenox prophylactically [place] p.r.n. for pain Monitor closely Full code 12/11/2024: Continue IV antibiotics Monitor the heart rate on telemetry Lasix 40 mg daily Aspirin Lipitor Tylenol p.r.n. Hydrocodone p.r.n. Zofran p.r.n. 12/12/2024: Wound care Continue current management Discharge planning for tomorrow Plan discussed with: Patient My Orders Orders - RUSSELL CORONA MD Procedure Category Date Status Time * Wound Consult CONS 12/12/24 Transmitted * Wound Consult CONS 12/12/24 Transmitted Date of Service: Dec 12, 2024 Billing Provider: RUSSELL CORONA MD Common Visit Codes: NOT BILLABLE RUSSELL CORONA MD Dec 12, 2024 13:29
--- NOTE | 2024-12-12 22:36 | DVHPN2 ---
Progress Note - Dictate Date Seen: Dec 12, 2024 Medical Necessity Reason Pt with a Central, PICC or Fol: No Subjective Patient was seen and evaluated in follow up. No overnight events. Patient stable on room air. Prelim blood cultures are negative for growth. Telemetry reviewed. vital signs Vital Sign Date Time Temp Pulse Resp B/P (MAP) Pulse Ox O2 Delivery O2 Flow Rate FiO2 12/12/24 21:00 97.4 60 17 124/74 (91) 98 97.4 12/12/24 20:00 Room Air* 0 21 Total Intake and Output 12/11/24 12/11/24 12/12/24 15:00 23:00 07:00 Intake Total 950 ml 650 ml Balance 950 ml 650 ml medications Current Medications Medications Dose Ordered Sig/Alfonso Route Start Time Stop Time Status Last Admin Dose Admin Clindamycin Phosphate 50 ml @ 50 mls/hr Q8HR IV 12/10/24 06:00 12/12/24 21:48 50 MLS/HR Atorvastatin Calcium 20 mg HS PO 12/10/24 22:00 12/12/24 21:45 20 MG Furosemide 40 mg DAILY PO 12/10/24 10:00 12/11/24 11:59 40 MG Gabapentin 100 mg TID PO 12/10/24 06:00 12/11/24 05:33 100 MG Acetaminophen/ Hydrocodone Bitart 1 tab Q4HP PRN PO 12/09/24 23:45 12/12/24 21:59 1 TAB Ondansetron HCl 4 mg Q4HP PRN IV 12/09/24 23:45 Enoxaparin Sodium 40 mg DAILY SC 12/10/24 10:00 12/12/24 09:51 40 MG Acetaminophen 650 mg Q6HP PRN PO 12/09/24 23:45 Aspirin 81 mg DAILY PO 12/11/24 10:00 12/12/24 09:50 81 MG objective GENERAL: Alert and oriented x 3. No acute distress. EYES: PERRL, EOMI. Anicteric. HENT: Moist mucous membranes. LUNGS: Clear to auscultation bilaterally. CARDIOVASCULAR: Regular rate and rhythm. ABDOMEN: Soft, nontender and nondistended. EXTREMITIES: 4+ pitting edema. NEUROLOGIC: No focal neurological deficits. SKIN: Left lower extremity wrapped with dressing. Right lower extremity with blisters. laboratory and microbiology Laboratory Tests 12/10/24 06:06 Test 12/10/24 06:06 Range/Units Serum Glucose 95 74-106 mg/dL Problem List Sinus bradycardia. Chronic compensated HFpEF, NYHA class II. Transient atrial fibrillation (not on NOAC therapy). Peripheral arterial disease with four stents (3 FRANKIE to R lower extremity, 1 FRANKIE to left lower extremity). Chronic lymphedema. Acute kidney injury. Peripheral neuropathy. Obesity. Assessment/Plan Continued all current supportive medical care. [place] for pain management. Aspirin, Lipitor. IV antibiotics as ordered. DVT prophylactics. Diuretics with Lasix. Additional plan as per the hospital course. Plan discussed with: Patient LYNN ARMANDO MD Dec 12, 2024 22:36
[2024-12-13] VITALS (7 sets, daily range): BP systolic 110–132; BP diastolic 56–87; PULSE 47–75; RESP 14–18; TEMP 97.5–98.3; O2SAT 96–100
--- NOTE | 2024-12-13 09:58 | DVHPN2 ---
Subjective No new complaints Cardiology saw the patient recommended no pacemaker Changes from previous H/P or p: Changes Objective Vitals Vital Signs Date Time Temp Pulse Resp B/P (MAP) Pulse Ox O2 Delivery O2 Flow Rate FiO2 12/13/24 09:10 129/56 12/13/24 08:49 97.5 47 18 98 97.5 12/12/24 20:00 Room Air* 0 21 Intake/Output Intake and Output 12/13/24 07:00 Intake Total 1800 ml Balance 1800 ml Intake Oral 1700 ml IV Total 100 ml # Voids 7 # Bowel Movements 3 General Appearance: Alert, Oriented X3, Cooperative Extremities: Other (1+ edema bilaterally in the legs) Medications Current Medications Medications Dose Ordered Sig/Alfonso Route Start Time Stop Time Status Last Admin Dose Admin Clindamycin Phosphate 50 ml @ 50 mls/hr Q8HR IV 12/10/24 06:00 12/13/24 05:37 50 MLS/HR Atorvastatin Calcium 20 mg HS PO 12/10/24 22:00 12/12/24 21:45 20 MG Furosemide 40 mg DAILY PO 12/10/24 10:00 12/13/24 09:10 40 MG Gabapentin 100 mg TID PO 12/10/24 06:00 12/11/24 05:33 100 MG Acetaminophen/ Hydrocodone Bitart 1 tab Q4HP PRN PO 12/09/24 23:45 12/13/24 09:09 1 TAB Ondansetron HCl 4 mg Q4HP PRN IV 12/09/24 23:45 Enoxaparin Sodium 40 mg DAILY SC 12/10/24 10:00 12/13/24 09:10 40 MG Acetaminophen 650 mg Q6HP PRN PO 12/09/24 23:45 Aspirin 81 mg DAILY PO 12/11/24 10:00 12/13/24 09:09 81 MG Laboratory Results Laboratory Tests 12/10/24 06:06 Microbiology Microbiology Date/Time Source Procedure Growth Status 12/09/24 23:58 Blood Blood Culture - Preliminary NO GROWTH AFTER 72 HOURS OF INCUBATION. Resulted Assessment/Plan Assessment/Plan Right lower extremity cellulitis Bradycardia History of atrial fibrillation Hypertension Dyslipidemia Acute kidney injury Plan IV clindamycin for the cellulitis Bradycardia: Consult cardiology Lovenox prophylactically [place] p.r.n. for pain Monitor closely Full code 12/11/2024: Continue IV antibiotics Monitor the heart rate on telemetry Lasix 40 mg daily Aspirin Lipitor Tylenol p.r.n. Hydrocodone p.r.n. Zofran p.r.n. 12/12/2024: Wound care Continue current management Discharge planning for tomorrow 12/13/2024: Bilateral cellulitis of the lower extremities: She is complaining of increased pain in her both of her legs Vital signs are stable Bradycardia: Heart rate is stable between 47 and 60, asymptomatic Bilateral lymphedema History of AFib Dyslipidemia Plan to keep the patient here in the hospital over the weekend and continue wound care and IV antibiotics Plan discussed with: Patient My Orders Orders - RUSSELL CORONA MD Procedure Category Date Status Time * Wound Consult CONS 12/12/24 Transmitted Date of Service: Dec 13, 2024 Billing Provider: RSUSELL CORONA MD Common Visit Codes: NOT BILLABLE RUSSELL CORONA MD Dec 13, 2024 09:58
--- NOTE | 2024-12-13 22:34 | DVHPN2 ---
Progress Note - Dictate Date Seen: Dec 13, 2024 Medical Necessity Reason Pt with a Central, PICC or Fol: No Subjective Patient was seen and evaluated in follow up. Patient resting bed. Patient received wound care earlier. Patient refusing to wear slip resistant socks due to discomfort. Telemetry reviewed. vital signs Vital Sign Date Time Temp Pulse Resp B/P (MAP) Pulse Ox O2 Delivery O2 Flow Rate FiO2 12/13/24 16:58 98.1 48 14 124/74 (91) 100 98.1 12/13/24 08:00 Room Air* 0 21 Total Intake and Output 12/12/24 12/12/24 12/13/24 15:00 23:00 07:00 Intake Total 360 ml 1090 ml 350 ml Balance 360 ml 1090 ml 350 ml medications Current Medications Medications Dose Ordered Sig/Alfonso Route Start Time Stop Time Status Last Admin Dose Admin Clindamycin Phosphate 50 ml @ 50 mls/hr Q8HR IV 12/10/24 06:00 12/13/24 22:11 50 MLS/HR Atorvastatin Calcium 20 mg HS PO 12/10/24 22:00 12/13/24 22:11 20 MG Furosemide 40 mg DAILY PO 12/10/24 10:00 12/13/24 09:10 40 MG Gabapentin 100 mg TID PO 12/10/24 06:00 12/13/24 22:10 100 MG Acetaminophen/ Hydrocodone Bitart 1 tab Q4HP PRN PO 12/09/24 23:45 12/13/24 09:09 1 TAB Ondansetron HCl 4 mg Q4HP PRN IV 12/09/24 23:45 Enoxaparin Sodium 40 mg DAILY SC 12/10/24 10:00 12/13/24 09:10 40 MG Acetaminophen 650 mg Q6HP PRN PO 12/09/24 23:45 Aspirin 81 mg DAILY PO 12/11/24 10:00 12/13/24 09:09 81 MG objective GENERAL: Alert and oriented x 3. No acute distress. EYES: PERRL, EOMI. Anicteric. HENT: Moist mucous membranes. LUNGS: Clear to auscultation bilaterally. CARDIOVASCULAR: Regular rate and rhythm. ABDOMEN: Soft, nontender and nondistended. EXTREMITIES: 4+ pitting edema. NEUROLOGIC: No focal neurological deficits. SKIN: Left lower extremity wrapped with dressing. Right lower extremity with blisters. laboratory and microbiology Laboratory Tests 12/10/24 06:06 Test 12/10/24 06:06 Range/Units Serum Glucose 95 74-106 mg/dL Problem List Sinus bradycardia. Chronic compensated HFpEF, NYHA class II. Transient atrial fibrillation (not on NOAC therapy). Peripheral arterial disease with four stents (3 FRANKIE to R lower extremity, 1 FRANKIE to left lower extremity). Chronic lymphedema. Acute kidney injury. Peripheral neuropathy. Obesity. Assessment/Plan Continued all current supportive medical care. [place] for pain management. Aspirin, Lipitor. IV antibiotics as ordered. DVT prophylactics. Diuretics with Lasix. Additional plan as per the hospital course. Plan discussed with: Patient LYNN ARMANDO MD Dec 13, 2024 22:34
[2024-12-14] VITALS (8 sets, daily range): BP systolic 116–148; BP diastolic 41–88; PULSE 41–86; RESP 16–20; TEMP 96.8–98.3; O2SAT 93–100
--- NOTE | 2024-12-14 18:18 | DVHPN2 ---
Subjective Feels the same Reviewed: Care Plan, H&P, Labs, Medications, Previous Orders, Radiology, Other (Consultants) Changes from previous H/P or p: No Changes Objective Vitals Vital Signs Date Time Temp Pulse Resp B/P (MAP) Pulse Ox O2 Delivery O2 Flow Rate FiO2 12/14/24 17:00 98.2 50 20 134/79 (97) 96 98.2 12/14/24 08:00 Room Air* 0 21 Intake/Output Intake and Output 12/14/24 07:00 Intake Total 1700 ml Balance 1700 ml Intake Oral 1600 ml IV Total 100 ml # Voids 14 # Bowel Movements 3 General Appearance: Alert, Oriented X3, Cooperative, No acute distress HEENT: Atraumatic Lungs: Clear to auscultation Cardiovascular: Regular rate Abdomen: Normal bowel sounds, Soft, No tenderness Extremities: Other (Bilateral lower extremity lymphedema with redness and tenderness bilateral pretibial area. Few growth on bilateral dorsal aspect of 2nd 3rd and 4th ptosis bilaterally) Medications Current Medications Medications Dose Ordered Sig/Alfonso Route Start Time Stop Time Status Last Admin Dose Admin Clindamycin Phosphate 50 ml @ 50 mls/hr Q8HR IV 12/10/24 06:00 12/14/24 14:28 50 MLS/HR Atorvastatin Calcium 20 mg HS PO 12/10/24 22:00 12/13/24 22:11 20 MG Furosemide 40 mg DAILY PO 12/10/24 10:00 12/14/24 09:36 40 MG Gabapentin 100 mg TID PO 12/10/24 06:00 12/14/24 06:15 100 MG Acetaminophen/ Hydrocodone Bitart 1 tab Q4HP PRN PO 12/09/24 23:45 12/13/24 09:09 1 TAB Ondansetron HCl 4 mg Q4HP PRN IV 12/09/24 23:45 Enoxaparin Sodium 40 mg DAILY SC 12/10/24 10:00 12/14/24 09:35 40 MG Acetaminophen 650 mg Q6HP PRN PO 12/09/24 23:45 Aspirin 81 mg DAILY PO 12/11/24 10:00 12/14/24 09:36 81 MG Laboratory Results Laboratory Tests 12/10/24 06:06 Microbiology Microbiology Date/Time Source Procedure Growth Status 12/09/24 23:58 Blood Blood Culture - Preliminary NO GROWTH AFTER 72 HOURS OF INCUBATION. Resulted Assessment/Plan Assessment/Plan Bilateral lower extremity cellulitis Bilateral lower extremities chronic lower extremity edema Bilateral lower extremities peripheral artery disease with history of stents bilaterally Peripheral neuropathy Prediabetes Bradycardia AFib Obesity with BMI 29.3 and multiple comorbidities Plan: Continue current plan of care. Possible discharge home tomorrow Plan discussed with: Patient Date of Service: Dec 14, 2024 Billing Provider: AGATHA ADAMS MD Common Visit Codes: [id number] INP/OBS CARE(HIGH) AGATHA ADAMS MD Dec 14, 2024 18:18
--- NOTE | 2024-12-14 21:28 | DVHPN2 ---
Progress Note - Dictate Date Seen: Dec 14, 2024 Medical Necessity Reason Pt with a Central, PICC or Fol: No Subjective Patient was seen and evaluated in follow up. No overnight events. Patient denies any current complaints. Patient received wound care to BLE. Telemetry reviewed. vital signs Vital Sign Date Time Temp Pulse Resp B/P (MAP) Pulse Ox O2 Delivery O2 Flow Rate FiO2 12/14/24 20:50 98.3 51 18 139/79 (99) 97 98.3 12/14/24 08:00 Room Air* 0 21 Total Intake and Output 12/13/24 12/13/24 12/14/24 15:00 23:00 07:00 Intake Total 300 ml 850 ml 550 ml Balance 300 ml 850 ml 550 ml medications Current Medications Medications Dose Ordered Sig/Alfonso Route Start Time Stop Time Status Last Admin Dose Admin Clindamycin Phosphate 50 ml @ 50 mls/hr Q8HR IV 12/10/24 06:00 12/14/24 14:28 50 MLS/HR Atorvastatin Calcium 20 mg HS PO 12/10/24 22:00 12/13/24 22:11 20 MG Furosemide 40 mg DAILY PO 12/10/24 10:00 12/14/24 09:36 40 MG Gabapentin 100 mg TID PO 12/10/24 06:00 12/14/24 06:15 100 MG Acetaminophen/ Hydrocodone Bitart 1 tab Q4HP PRN PO 12/09/24 23:45 12/13/24 09:09 1 TAB Ondansetron HCl 4 mg Q4HP PRN IV 12/09/24 23:45 Enoxaparin Sodium 40 mg DAILY SC 12/10/24 10:00 12/14/24 09:35 40 MG Acetaminophen 650 mg Q6HP PRN PO 12/09/24 23:45 Aspirin 81 mg DAILY PO 12/11/24 10:00 12/14/24 09:36 81 MG objective GENERAL: Alert and oriented x 3. No acute distress. EYES: PERRL, EOMI. Anicteric. HENT: Moist mucous membranes. LUNGS: Clear to auscultation bilaterally. CARDIOVASCULAR: Regular rate and rhythm. ABDOMEN: Soft, nontender and nondistended. EXTREMITIES: 4+ pitting edema. NEUROLOGIC: No focal neurological deficits. SKIN: Left lower extremity wrapped with dressing. Right lower extremity with blisters. laboratory and microbiology Laboratory Tests 12/10/24 06:06 Test 12/10/24 06:06 Range/Units Serum Glucose 95 74-106 mg/dL Problem List Sinus bradycardia. Chronic compensated HFpEF, NYHA class II. Transient atrial fibrillation (not on NOAC therapy). Peripheral arterial disease with four stents (3 FRANKIE to R lower extremity, 1 FRANKIE to left lower extremity). Chronic lymphedema. Acute kidney injury. Peripheral neuropathy. Obesity. Assessment/Plan Continued all current supportive medical care. [place] for pain management. Aspirin, Lipitor. IV antibiotics as ordered. DVT prophylactics. Diuretics with Lasix. Additional plan as per the hospital course. Plan discussed with: Patient LYNN ARMANDO MD Dec 14, 2024 21:28
[2024-12-15] VITALS (7 sets, daily range): BP systolic 115–154; BP diastolic 47–76; PULSE 40–54; RESP 16–40; TEMP 96.5–98.2; O2SAT 97–99
--- NOTE | 2024-12-15 16:35 | DVHPN2 ---
Subjective Feels the same Reviewed: Care Plan, H&P, Labs, Medications, Previous Orders, Radiology, Other (Consultants) Changes from previous H/P or p: No Changes Objective Vitals Vital Signs Date Time Temp Pulse Resp B/P (MAP) Pulse Ox O2 Delivery O2 Flow Rate FiO2 12/15/24 12:39 97.3 48 40 137/47 (77) 98 97.3 12/15/24 08:00 Room Air* 0 21 Intake/Output Intake and Output 12/15/24 07:00 Intake Total 1238 ml Balance 1238 ml Intake Oral 1138 ml IV Total 100 ml # Voids 12 # Bowel Movements 8 General Appearance: Alert, Oriented X3, Cooperative, No acute distress HEENT: Atraumatic Lungs: Clear to auscultation Cardiovascular: Regular rate Abdomen: Normal bowel sounds, Soft, No tenderness Extremities: Other (Bilateral lower extremity lymphedema with redness and tenderness bilateral pretibial area. Few growth on bilateral dorsal aspect of 2nd 3rd and 4th ptosis bilaterally) Medications Current Medications Medications Dose Ordered Sig/Alfonso Route Start Time Stop Time Status Last Admin Dose Admin Clindamycin Phosphate 50 ml @ 50 mls/hr Q8HR IV 12/10/24 06:00 12/15/24 15:07 50 MLS/HR Atorvastatin Calcium 20 mg HS PO 12/10/24 22:00 12/14/24 21:51 20 MG Furosemide 40 mg DAILY PO 12/10/24 10:00 12/15/24 09:50 40 MG Gabapentin 100 mg TID PO 12/10/24 06:00 12/14/24 06:15 100 MG Acetaminophen/ Hydrocodone Bitart 1 tab Q4HP PRN PO 12/09/24 23:45 12/13/24 09:09 1 TAB Ondansetron HCl 4 mg Q4HP PRN IV 12/09/24 23:45 Enoxaparin Sodium 40 mg DAILY SC 12/10/24 10:00 12/15/24 09:49 40 MG Acetaminophen 650 mg Q6HP PRN PO 12/09/24 23:45 Aspirin 81 mg DAILY PO 12/11/24 10:00 12/15/24 09:50 81 MG Laboratory Results Laboratory Tests 12/10/24 06:06 Microbiology Microbiology Date/Time Source Procedure Growth Status 12/09/24 23:58 Blood Blood Culture - Final NO GROWTH AFTER 5 DAYS OF INCUBATION. Complete Assessment/Plan Assessment/Plan Bilateral lower extremity cellulitis Bilateral lower extremities chronic lower extremity edema Bilateral lower extremities peripheral artery disease with history of stents bilaterally Peripheral neuropathy Prediabetes Bradycardia AFib Obesity with BMI 29.3 and multiple comorbidities Plan: Podiatry consult for the gross on the toes. Continue current plan of care Plan discussed with: Patient My Orders Orders - AGATHA ADAMS MD Procedure Category Date Status Time *Podiatry Consult CONS 12/15/24 Casandra Gregg([facility]) 16:33 Date of Service: Dec 15, 2024 Billing Provider: AGATHA ADAMS MD Common Visit Codes: [id number] INP/OBS CARE(HIGH) AGATHA ADAMS MD Dec 15, 2024 16:35
--- NOTE | 2024-12-15 21:28 | DVHPN2 ---
Progress Note - Dictate Date Seen: Dec 15, 2024 Medical Necessity Reason Pt with a Central, PICC or Fol: No Subjective Patient was seen and evaluated in follow up. No overnight events. Patient c/o toe pain. Pending Podiatry consult. Telemetry reviewed. vital signs Vital Sign Date Time Temp Pulse Resp B/P (MAP) Pulse Ox O2 Delivery O2 Flow Rate FiO2 12/15/24 21:01 97.7 54 16 154/61 (92) 99 97.7 12/15/24 08:00 Room Air* 0 21 Total Intake and Output 12/14/24 12/14/24 12/15/24 15:00 23:00 07:00 Intake Total 418 ml 700 ml 120 ml Balance 418 ml 700 ml 120 ml medications Current Medications Medications Dose Ordered Sig/Alfonso Route Start Time Stop Time Status Last Admin Dose Admin Clindamycin Phosphate 50 ml @ 50 mls/hr Q8HR IV 12/10/24 06:00 12/15/24 21:07 50 MLS/HR Atorvastatin Calcium 20 mg HS PO 12/10/24 22:00 12/15/24 21:06 20 MG Furosemide 40 mg DAILY PO 12/10/24 10:00 12/15/24 09:50 40 MG Gabapentin 100 mg TID PO 12/10/24 06:00 12/14/24 06:15 100 MG Acetaminophen/ Hydrocodone Bitart 1 tab Q4HP PRN PO 12/09/24 23:45 12/15/24 21:19 1 TAB Ondansetron HCl 4 mg Q4HP PRN IV 12/09/24 23:45 Enoxaparin Sodium 40 mg DAILY SC 12/10/24 10:00 12/15/24 09:49 40 MG Acetaminophen 650 mg Q6HP PRN PO 12/09/24 23:45 Aspirin 81 mg DAILY PO 12/11/24 10:00 12/15/24 09:50 81 MG objective GENERAL: Alert and oriented x 3. No acute distress. EYES: PERRL, EOMI. Anicteric. HENT: Moist mucous membranes. LUNGS: Clear to auscultation bilaterally. CARDIOVASCULAR: Regular rate and rhythm. ABDOMEN: Soft, nontender and nondistended. EXTREMITIES: 4+ pitting edema. NEUROLOGIC: No focal neurological deficits. SKIN: Left lower extremity wrapped with dressing. Right lower extremity with blisters. laboratory and microbiology Laboratory Tests 12/10/24 06:06 Test 12/10/24 06:06 Range/Units Serum Glucose 95 74-106 mg/dL Problem List Sinus bradycardia. Chronic compensated HFpEF, NYHA class II. Transient atrial fibrillation (not on NOAC therapy). Peripheral arterial disease with four stents (3 FRANKIE to R lower extremity, 1 FRANKIE to left lower extremity). Chronic lymphedema. Acute kidney injury. Peripheral neuropathy. Obesity. Assessment/Plan Continued all current supportive medical care. [place] for pain management. Aspirin, Lipitor. IV antibiotics as ordered. DVT prophylactics. Diuretics with Lasix. Additional plan as per the hospital course. Dietary Evaluation Review Recommendations by RD: Dietary education by RD Comments: 1) Add 60g CCHO restriction to cardiac diet 2) Encourage optimal PO intake 3) Refer to outpatient RD/[facility] for prediabetes education 4) Follow-up with cardiology and nephrology 5) Continue to monitor I&O, labs, and skin integrity Expected Outcomes/Goals: 1) appetite and labs to improve 2) f/u in 3-5 days Plan discussed with: Patient LYNN ARMANDO MD Dec 15, 2024 21:28
[2024-12-16 01:17] VITALS: BP 114/47; PULSE 48; RESP 16; TEMP 98.2; O2SAT 98
[2024-12-16 05:13] VITALS: BP 116/47; PULSE 46; RESP 17; TEMP 97.8; O2SAT 99
[2024-12-16 08:00] VITALS: PULSE 48; RESP 17; O2SAT 100
[2024-12-16 09:00] VITALS: BP 129/62; PULSE 48; RESP 20; TEMP 97.6; O2SAT 100
[2024-12-16] MEDS ORDERED: DOXY1CAP57 PO (09:51)
--- NOTE | 2024-12-16 09:53 | DVHDS2 ---
Discharge Summary Date of Admission Dec 09, 2024 at 23:32 Date of Discharge: Dec 16, 2024 Labs/Diagnostic Data: Laboratory Results Test 12/10/24 06:06 12/09/24 23:48 12/09/24 18:20 White Blood Count 5.6 10^3/uL (4.4-10.8) Red Blood Count 4.55 10^6/uL (4.0-5.20) Hemoglobin 14.1 g/dL (12.2-16.2) Hematocrit 42.3 % (36.0-46.0) Mean Corpuscular Volume 93.0 fL (80.0-100.0) Mean Corpuscular Hemoglobin 31.0 pg (28.0-32.0) Mean Corpuscular Hemoglobin Concent 33.4 g/dL (32.0-36.0) Red Cell Distribution Width 14.4 % (11.8-14.3) Platelet Count 150 10^3/uL (140-450) Mean Platelet Volume 11.9 fL (6.9-10.8) Neutrophils (%) (Auto) 47.4 % (37.0-80.0) Lymphocytes (%) (Auto) 34.8 % (10.0-50.0) Monocytes (%) (Auto) 16.0 % (0.0-12.0) Eosinophils (%) (Auto) 1.5 % (0.0-7.0) Basophils (%) (Auto) 0.3 % (0.0-2.0) Neutrophils # (Auto) 2.6 10 ^3/uL (1.6-8.6) Lymphocytes # (Auto) 1.9 10 ^3/uL (0.4-5.4) Monocytes # (Auto) 0.9 10 ^3/uL (0-1.3) Eosinophils # (Auto) 0.1 10 ^3/uL (0-0.8) Basophils # (Auto) 0 10 ^3/uL (0-0.2) Nucleated Red Blood Cells 0.1 % Sodium Level 142 mmol/L (136-145) Potassium Level 3.7 mmol/L (3.5-5.1) Chloride Level 109 mmol/L (98-107) Carbon Dioxide Level 22 mmol/L (20-31) Anion Gap 11 (5-15) Blood Urea Nitrogen 32 mg/dL (9-23) Creatinine 1.26 mg/dL (0.550-1.02) Glomerular Filtration Rate Calc 46 mL/min (>90) BUN/Creatinine Ratio 25.4 (10.0-20.0) Serum Glucose 95 mg/dL (74-106) Hemoglobin A1c 5.7 % A1C (<5.7) Calcium Level 8.9 mg/dL (8.7-10.4) Magnesium Level 2.1 mg/dL (1.6-2.6) Triglycerides Level 104 mg/dL (< 150) Cholesterol Level 78 mg/dL (< 200) LDL Cholesterol 30 mg/dL (< 100) HDL Cholesterol 33 mg/dL (40-59) Thyroid Stimulating Hormone (TSH) 1.45 uIU/mL (0.55-4.78) Lactic Acid Level 1.4 mmol/L (0.4-2.0) Differential Total Cells Counted 100.0 (100) Neutrophils % (Manual) 43 (37.0-80.0) Band Neutrophils % (Manual) 1 Lymphocytes % (Manual) 38 (10.0-50.0) Monocytes % (Manual) 14 (0-12) Eosinophils % (Manual) 0 (0-7) Basophils % (Manual) 0 (0.0-2.0) Metamyelocytes % (manual) 0 Myelocytes % (Manual) 0 Promyelocytes % (Manual) 0 Blast Cells % (Manual) 0 Reactive Lymphocytes 4 Platelet Estimate Adequate Troponin I High Sensitivity 10 ng/L (</=34) B-Type Natriuretic Peptide 63.33 pg/mL (0-100) Other Laboratory Tests 12/10/24 06:06 Brief Hx & Hospital Course: Final diagnoses: Right lower extremity cellulitis Chronic bilateral lower extremity lymphedema Bradycardia History of atrial fibrillation Hypertension Dyslipidemia Acute kidney injury 69-year-old female came with increased swelling and pain right leg due to cellulitis She has chronic lymphedema bilaterally in her lower extremities She was treated with the IV antibiotics Wound care was done She was also bradycardic, she has chronic bradycardia, she was evaluated previously by Cardiology with a stress test and heart catheterization, Cardiology saw the patient again and recommended no further interventions at this time Overall she did well and therefore she will be discharged home today on doxycycline for 7 days and resume other home medications We are also waiting on a Podiatry consultation regarding her toes If the patient is cleared by Podiatry then she can be discharged home today Condition at Discharge: Stable Final Diagnosis/Problems List Right lower extremity cellulitis Bradycardia History of atrial fibrillation Hypertension Dyslipidemia Acute kidney injury Discharge Disposition: Home SNF Discharge Will this Physician continue t: No Discharge Instruct/Medications Scheduled Atorvastatin Calcium (Atorvastatin Calcium), 20 MG PO HS Doxycycline Monohydrate (Doxycycline Monohydrate), 1 CAP PO BID Furosemide (Furosemide), 1 TAB PO DAILY Gabapentin (Gabapentin), 100 MG PO TID, (Reported) Olmesartan Medoxomil (Olmesartan Medoxomil), 1 TAB PO DAILY, (Reported) Spironolactone (Spironolactone), 1 TAB PO DAILY Spironolactone (Aldactone), 1 TAB PO DAILY Tramadol Hcl (Tramadol Hcl), 1-2 TAB PO BID PRN, (Reported) Discharge Statement: "Patient was advised to return to the ER or call 911 if any headaches, dizziness, shortness of breath, chest pain, abdominal pain, bleeding, fevers, or worsening of medical condition. Patient was counseled about treatment plan, medications, possible side effects, patientverbalized understanding. All questions were answered to the best of my ability. This discharge took greater then 30 minutes in planning, reviewing documentation, counseling the patient, and discussing with other team members." ASSESSMENT ASSESSMENT Assessment Date of Service: Dec 16, 2024 Billing Provider: RUSSELL CORONA MD Common Visit Codes: NOT BILLABLE RUSSELL CORONA MD Dec 16, 2024 09:52
--- NOTE | 2024-12-16 12:09 | DVHCONRES ---
Date Seen: Dec 16, 2024 Reason for Consultation Right lower extremity swelling History of Present Illness 69-year-old female presents for evaluation of lower extremity swelling. Patient does have a history of chronic lymphedema to bilateral lower extremities. She states that over the past three days her right lower extremity has become more swollen and tender. She denies fever or chills. Denies any trauma to the area. No other acute complaints reported. Past Medical History See H&P Past Surgical History See H&P Family History: Cardiovascular disease G8 MOTHER (GALLBLADDER STONES), , Age: 90, Onset:60 years & older (had cancer but mother from gallbladder per patient) family hx1, , Age: 95, Onset:60 years & older (heart attack) FHx: bladder cancer G8 MOTHER (GALLBLADDER STONES), , Age: 90, Onset:60 years & older Allergies: Coded Allergies: Sulfa Antibiotics (Verified Allergy, Unknown, 11/25/23) Amlodipine (Unverified Adverse Reaction, Unknown, 07/10/24) Peripheral edema Uncoded Allergies: Gauze (Allergy, Intermediate, 11/29/24) Per patient, causes skin to darken red. Informed to refuse gauze. Home Meds Active Scripts Doxycycline Monohydrate (Doxycycline Monohydrate) 100 Mg Cap, 1 CAP PO BID, #14 CAP Prov:RUSSELL CORONA MD 12/16/24 Spironolactone (Aldactone) 25 Mg Tab, 1 TAB PO DAILY, #30 TAB 5 Refills Prov:RUSSELL CORONA MD 12/02/24 Doxycycline Monohydrate (Doxycycline Monohydrate) 100 Mg Cap, 1 CAP PO BID, #14 CAP Prov:RUSSELL CORONA MD 12/02/24 Furosemide (Furosemide) 40 Mg Tab, 1 TAB PO DAILY, #90 TAB 1 Refill Prov:AWA MILTON MD 11/19/24 Atorvastatin Calcium (ATORVASTATIN CALCIUM) 20 Mg Tab, 20 MG PO HS, #60 TAB Prov:AWA MILTON MD 11/19/24 Spironolactone (Spironolactone) 25 Mg Tab, 1 TAB PO DAILY, #60 TAB Prov:AWA MILTON MD 11/19/24 Reported Medications Olmesartan Medoxomil (Olmesartan Medoxomil) 20 Mg Tab, 1 TAB PO DAILY 11/29/24 Gabapentin (Gabapentin) 100 Mg Cap, 100 MG PO TID 11/29/24 Tramadol Hcl (Tramadol Hcl) 50 Mg Tab, 1-2 TAB PO BID PRN for 30 Days, #120 08/01/24 Vital Signs Vital Signs Date Time Temp Pulse Resp B/P (MAP) Pulse Ox O2 Delivery O2 Flow Rate FiO2 12/16/24 10:21 129/62 12/16/24 09:00 97.6 48 20 100 97.6 12/16/24 08:00 Room Air* 0 21 Physical Exam Dermatological: Skin is dry with mild erythema and some maceration around the wound site No gross deformities noted Mild non-pitting edema present bilaterally Bilateral lower extremity swelling with erythema Vascular: Dorsalis pedis and posterior tibial pulses are 1+ bilaterally Capillary refill is under 2 seconds Skin temperature is warm bilaterally Neurologic: Protective sensation is absent on the plantar forefoot bilaterally Monofilament testing reveals decreased sensation in multiple plantar sites Musculoskeletal: Range of motion at the ankle and MTP joints is within normal limits. Strength is 5/5 in all tested muscle groups. Gait is antalgic due to offloading of the affected limb. Labs/Diagnostic Data Labs Test 12/10/24 06:06 12/09/24 23:48 12/09/24 18:20 Range/Units White Blood Count 5.6 4.4-10.8 10^3/uL Red Blood Count 4.55 4.0-5.20 10^6/uL Hemoglobin 14.1 12.2-16.2 g/dL Hematocrit 42.3 36.0-46.0 % Mean Corpuscular Volume 93.0 80.0-100.0 fL Mean Corpuscular Hemoglobin 31.0 28.0-32.0 pg Mean Corpuscular Hemoglobin Concent 33.4 32.0-36.0 g/dL Red Cell Distribution Width 14.4 H 11.8-14.3 % Platelet Count 150 140-450 10^3/uL Mean Platelet Volume 11.9 H 6.9-10.8 fL Neutrophils (%) (Auto) 47.4 37.0-80.0 % Lymphocytes (%) (Auto) 34.8 10.0-50.0 % Monocytes (%) (Auto) 16.0 H 0.0-12.0 % Eosinophils (%) (Auto) 1.5 0.0-7.0 % Basophils (%) (Auto) 0.3 0.0-2.0 % Neutrophils # (Auto) 2.6 1.6-8.6 10 ^3/uL Lymphocytes # (Auto) 1.9 0.4-5.4 10 ^3/uL Monocytes # (Auto) 0.9 0-1.3 10 ^3/uL Eosinophils # (Auto) 0.1 0-0.8 10 ^3/uL Basophils # (Auto) 0 0-0.2 10 ^3/uL Nucleated Red Blood Cells 0.1 % Sodium Level 142 # 136-145 mmol/L Potassium Level 3.7 3.5-5.1 mmol/L Chloride Level 109 H 98-107 mmol/L Carbon Dioxide Level 22 20-31 mmol/L Anion Gap 11 5-15 Blood Urea Nitrogen 32 H 9-23 mg/dL Creatinine 1.26 H 0.550-1.02 mg/dL Glomerular Filtration Rate Calc 46 >90 mL/min BUN/Creatinine Ratio 25.4 H 10.0-20.0 Serum Glucose 95 74-106 mg/dL Hemoglobin A1c 5.7 <5.7 % A1C Calcium Level 8.9 8.7-10.4 mg/dL Magnesium Level 2.1 1.6-2.6 mg/dL Triglycerides Level 104 < 150 mg/dL Cholesterol Level 78 < 200 mg/dL LDL Cholesterol 30 < 100 mg/dL HDL Cholesterol 33 L 40-59 mg/dL Thyroid Stimulating Hormone (TSH) 1.45 0.55-4.78 uIU/mL Lactic Acid Level 1.4 0.4-2.0 mmol/L Differential Total Cells Counted 100.0 100 Neutrophils % (Manual) 43 37.0-80.0 Band Neutrophils % (Manual) 1 Lymphocytes % (Manual) 38 10.0-50.0 Monocytes % (Manual) 14 H 0-12 Eosinophils % (Manual) 0 0-7 Basophils % (Manual) 0 0.0-2.0 Metamyelocytes % (manual) 0 Myelocytes % (Manual) 0 Promyelocytes % (Manual) 0 Blast Cells % (Manual) 0 Reactive Lymphocytes 4 Platelet Estimate Adequate Troponin I High Sensitivity 10 </=34 ng/L B-Type Natriuretic Peptide 63.33 0-100 pg/mL Microbiology Date/Time Source Procedure Growth Status 12/09/24 23:58 Blood Blood Culture - Final NO GROWTH AFTER 5 DAYS OF INCUBATION. Complete Problems(with codes): (1) Lumbar radiculopathy (2) Bradycardia (3) Low back pain with sciatica (4) Symptomatic bradycardia (5) Autonomic disorder (6) [id number] kidney injury (7) Fall (8) Hypertensive emergency (9) Dizziness (10) Chest pain (11) Chest pain of unknown etiology (12) Cellulitis of right leg (13) Acute chest pain (14) Hypertensive urgency (15) Lower extremity pain, left (16) Venous stasis (17) Peripheral edema (18) Pedal edema (19) Sciatic nerve pain (20) UTI (urinary tract infection) (21) Acute exacerbation of chronic low back pain (22) Generalized weakness (23) Peripheral vascular disease (24) Intractable pain (25) Bilateral lower extremity edema (26) Atrial fibrillation (27) Cellulitis (28) Hypernatremia (29) Lymphedema Plan/Recommendation ASSESSMENT: Patient is a 69 year old seen on the floor for a worsening lymphedema PLAN: - The patients chart was reviewed, clinical findings were discussed with the patient, the etiologies of the conditions were discussed in detail, and a treatment plan was agreed to at this time, with both oral and written instructions provided. - continue where compression use at home lymphedema pumps - can be discharged home on p.o. antibiotics - continue wear extra-depth shoes - follow up after discharge All questions were answered and concerns addressed to the patient's satisfaction. The patient was given the phone number to the clinic and was told how to make contact with the clinic should any concerns or questions arise. Patient understands that if any questions or concerns arise prior to the next appointment, we should be contacted immediately. FOLLOW-UP: Continue to follow while inpatient Plan discussed with: Patient Visit Coding Podiatry Date of Service if different f: Dec 16, 2024 Billing Provider: ZAK MORENO DPM Podiatry Common Visit Codes: CONSULT ONLY Podiatry Consult Codes: [id number] NEW/EST HI 80 ZAK MORENO DPM Dec 16, 2024 12:09
[2024-12-16 13:00] VITALS: BP 150/78; PULSE 50; RESP 18; TEMP 97.6; O2SAT 98
--- NOTE | 2024-12-16 23:30 | DVHPN2 ---
Progress Note - Dictate Date Seen: Dec 16, 2024 Medical Necessity Reason Pt with a Central, PICC or Fol: No Subjective Patient was seen and evaluated in follow up. Patient has no new complaints at this time. Patient denies any cardiac symptoms. Patient is cardiac stable for discharge. Telemetry reviewed. vital signs Vital Sign Date Time Temp Pulse Resp B/P (MAP) Pulse Ox O2 Delivery O2 Flow Rate FiO2 12/16/24 13:00 97.6 50 18 150/78 (102) 98 97.6 12/16/24 08:00 Room Air* 0 21 Total Intake and Output 12/15/24 12/15/24 12/16/24 15:00 23:00 07:00 Intake Total 994 ml 1250 ml 600 ml Balance 994 ml 1250 ml 600 ml objective GENERAL: Alert and oriented x 3. No acute distress. EYES: PERRL, EOMI. Anicteric. HENT: Moist mucous membranes. LUNGS: Clear to auscultation bilaterally. CARDIOVASCULAR: Regular rate and rhythm. ABDOMEN: Soft, nontender and nondistended. EXTREMITIES: 4+ pitting edema. NEUROLOGIC: No focal neurological deficits. SKIN: Left lower extremity wrapped with dressing. Right lower extremity with blisters. laboratory and microbiology Laboratory Tests 12/10/24 06:06 Test 12/10/24 06:06 Range/Units Serum Glucose 95 74-106 mg/dL Problem List Sinus bradycardia. Chronic compensated HFpEF, NYHA class II. Transient atrial fibrillation (not on NOAC therapy). Peripheral arterial disease with four stents (3 FRANKIE to R lower extremity, 1 FRANKIE to left lower extremity). Chronic lymphedema. Acute kidney injury. Peripheral neuropathy. Obesity. Assessment/Plan Continued all current supportive medical care. [place] for pain management. Aspirin, Lipitor. IV antibiotics as ordered. DVT prophylactics. Diuretics with Lasix. Additional plan as per the hospital course. Dietary Evaluation Review Recommendations by RD: Dietary education by RD Comments: 1) Add 60g CCHO restriction to cardiac diet 2) Encourage optimal PO intake 3) Refer to outpatient RD/CD[facility] for prediabetes education 4) Follow-up with cardiology and nephrology 5) Continue to monitor I&O, labs, and skin integrity Expected Outcomes/Goals: 1) appetite and labs to improve 2) f/u in 3-5 days Plan discussed with: Patient LYNN ARMANDO MD Dec 16, 2024 23:30
== END 2024-12-16 19:32 | disposition home health service (06) | DRG 603 ==
LOC: EDBD 16:31 → EDUNIT# 16:31 → ER 16:31 → OVERFLOW 23:32 → WEST WING 12-10 18:00 → TELE-WESTW 12-12 00:03
PROVIDERS: ADMIT Internal Medicine Geriatric Medicine; ATTEND Internal Medicine Geriatric Medicine
DX: L03.115 Cellulitis of right lower limb (principal); N17.9 Acute kidney failure, unspecified; E87.0 Hyperosmolality and hypernatremia; I50.32 Chronic diastolic (congestive) heart failure; I11.0 Hypertensive heart disease with heart failure; G62.9 Polyneuropathy, unspecified; J45.909 Unspecified asthma, uncomplicated; E66.9 Obesity, unspecified; I48.91 Unspecified atrial fibrillation; I89.0 Lymphedema, not elsewhere classified; I25.10 Atherosclerotic heart disease of native coronary artery without angina pectoris; E78.5 Hyperlipidemia, unspecified; L03.116 Cellulitis of left lower limb; R73.03 Prediabetes; Z88.2 Allergy status to sulfonamides; Z82.49 Family history of ischemic heart disease and other diseases of the circulatory system; Z80.52 Family history of malignant neoplasm of bladder; Z68.29 Body mass index [BMI] 29.0-29.9, adult; Z79.899 Other long term (current) drug therapy
CPT/HCPCS: 36415; 71045; 80048; 80061; 83036; 83605; 83735; 83880; 84443; 84484; 85007; 85025; 85027; 87040; 93005; 93926; 93971; G0378; J3490

== ENCOUNTER 2024-12-26 18:14 | Emergency (ER) | payer OTHER ==
[~2024-12-26] VITALS: Ht 167.6 cm; Wt 77.5 kg
[2024-12-26 18:50] VITALS: PULSE 60; RESP 12; O2SAT 96
--- NOTE | 2024-12-26 19:00 | ED.PDOC ---
Musculoskeletal HPI Comments HPI: 69-year-old female came to ER via EMS due to bilateral lower extremity swelling. Patient does have a history of chronic lymphedema, being managed by home health care nurse/ wound care nurse. Noted worsening of swelling last night, right >left. No fever noted. Patient was discharged here last December 16, IV antibiotics and wound care was done, and was diagnosed with Right lower extremity cellulitis, Bradycardia , History of atrial fibrillation , Hypertension , Dyslipidemia , Acute kidney injury Initial Vitals BP: 113/65 HR: 64 RR: 16 O2:96% Temp: 98.3 F Past Medical History: Hypertension, AFib, chronic lymphedema, CHF Past Surgical History: None Social History: Denies ETOH, smoking, and drug use. Medications: Allergies: HPI: Poor Historian. REVIEW OF SYSTEMS: CONSTITUTIONAL: Denies acute: fever, diaphoresis, chills, generalized weakness. HEAD: Denies acute: headache, photophobia Eyes: Denies acute: Double vision, vision loss, eye pain, eye discharge. EARS: Denies acute: tinnitus, hearing loss, ear discharge, ear pain, THROAT: Denies acute: sore throat, swelling, difficulty swallowing , pain with swallowing, change in voice. NECK: Denies acute: neck pain, neck swelling, stiff neck. HEART: Denies acute : chest pain, palpitations, LUNGS: Denies acute: SOB, wheezing, cough, hemoptysis ABDOMEN: Denies acute: abdominal pain, Nausea, Vomiting, diarrhea, melena , hematemesis, hematochezia SKIN: Denies acute: itchiness. EXTREMITIES: Denies acute: calf pain, numbness, tingling, weakness, Denies acute: Low back pain. Neuro: Denies acute: focal neurological deficit, motor or sensory focal neurological deficit, tremors, seizure like activity, confusion, dizziness, change in mental status, loss of bowel or bladder function, cauda equina like symptoms. : Denies acute: dysuria, hematuria, flank pain, increase in urinary frequency. PSYCH: Denies acute: hallucination, suicidal ideation, homicidal ideation. FEMALE: Denies acute: abnormal vaginal bleeding, foul odor, unusual discharge. PHYSICAL EXAM: General: ----mild----acute distress, awake and alert. Head: normocephalic, atraumatic. Neck: supple, trachea is midline, no swelling. Throat: Normal phonation. Eyes:, no erythema, no purulent discharge, no proptosis, no icterus. Heart: regular rate, regular rhythm, no significant murmur appreciated. Lungs: no apparent respiratory distress, Able to speak in full sentences. No wheezing, no rhonchi, no crackles. No stridors Clear to auscultation bilaterally. Abdomen: non tender to palpation, non distended, soft, no guarding, no rebound, + bowel sounds. Neuro: Awake, Alert, oriented to name, self, situation, follows commands GCS=15. Speech is normal. Skin: no petechia, no purpura, no cyanosis, non-pale, not jaundice. Lower extremities: Bilateral chronic wound with the associated lymphedema below the knees. Wound dressing was in place. Wound dressing was removed. Noted Xeroform applied to the wounds. The area does not appear to be infected. There is some pitting edema 2/4 bilaterally. Patient is neurovascularly intact in the affected bilateral distal lower extremities. Poor hygiene of the feet. Patient mainly complained that the wound wrapping initially was too tight for her that contributed to her overall discomfort and that is why she called 911. No calf tenderness to palpation. Noted oozing of clear liquid from the skin bilaterally which is chronic for her with her lymphedema. Makes eye contact. moves all four extremities. Face: no apparent facial droop. Patient denies any abdominal pain or any GI symptoms acutely. ED COURSE: DISCLAIMER: This medical document was created using an electronic medical record system with voice recognition software and computerized dictation system. Although this document has been carefully reviewed, there might still be some phonetic and typographical errors. Occasional wrong-word or "sound-alike" substitutions may have occurred due to the inherent limitations of voice recognition software. These areas are purely typographical due to imperfections of the software programs and do not reflect any compromise in the patient's medical care. Please read the chart carefully and recognize, using context, where these substitutions have occurred. 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 Informed to refuse gauze. Home Meds Active Scripts Doxycycline Monohydrate (Doxycycline Monohydrate) 100 Mg Cap, 1 CAP PO BID, #14 CAP Prov:RUSSELL CORONA MD 12/16/24 Spironolactone (Aldactone) 25 Mg Tab, 1 TAB PO DAILY, #30 TAB 5 Refills Prov:RUSSELL CORONA MD 12/02/24 Doxycycline Monohydrate (Doxycycline Monohydrate) 100 Mg Cap, 1 CAP PO BID, #14 CAP Prov:RUSSELL CORONA MD 12/02/24 Furosemide (Furosemide) 40 Mg Tab, 1 TAB PO DAILY, #90 TAB 1 Refill Prov:AWA MILTON MD 11/19/24 Atorvastatin Calcium (ATORVASTATIN CALCIUM) 20 Mg Tab, 20 MG PO HS, #60 TAB Prov:AWA MILTON MD 11/19/24 Spironolactone (Spironolactone) 25 Mg Tab, 1 TAB PO DAILY, #60 TAB Prov:AWA MILTON MD 11/19/24 Reported Medications Olmesartan Medoxomil (Olmesartan Medoxomil) 20 Mg Tab, 1 TAB PO DAILY 11/29/24 Gabapentin (Gabapentin) 100 Mg Cap, 100 MG PO TID 11/29/24 Tramadol Hcl (Tramadol Hcl) 50 Mg Tab, 1-2 TAB PO BID PRN for 30 Days, #120 08/01/24 Information Source: Patient Mode of Arrival: EMS Location: Bilateral Extremity Location: Leg Past Medical History PAST MEDICAL HISTORY: AFIB, Asthma, CAD, CHF, High Lipids, HTN Surgical History: Denies all surgeries EMPLOYEE RELATIONS DIRECTOR History: No Pertinent EMPLOYEE RELATIONS DIRECTOR History Family History Family History: Reviewed,noncontributory to illness, Unknown Social History Smoker: Non-Smoker Alcohol: Denies ETOH Use Drugs: Denies Drug Use Lives In: Home Was a procedure done? Was a procedure done?: No X-Ray, Labs, Meds, VS Vital Signs Date Time Temp Pulse Resp B/P (MAP) Pulse Ox O2 Delivery O2 Flow Rate FiO2 12/26/24 20:52 146/56 12/26/24 19:30 59 15 95 Room Air* 0 12/26/24 19:30 97.8 59 15 124/53 (76) 95 97.8 12/26/24 18:50 98.5 60 12 118/46 (70) 96 98.5 12/26/24 18:50 60 12 96 Room Air* 0 12/26/24 18:20 98.3 64 16 113/65 96 98.3 Lab Test 12/26/24 20:07 12/26/24 19:04 Range/Units B-Type Natriuretic Peptide 98.66 0-100 pg/mL White Blood Count 6.3 4.4-10.8 10^3/uL Red Blood Count 4.10 4.0-5.20 10^6/uL Hemoglobin 12.7 12.2-16.2 g/dL Hematocrit 38.4 36.0-46.0 % Mean Corpuscular Volume 93.7 80.0-100.0 fL Mean Corpuscular Hemoglobin 31.1 28.0-32.0 pg Mean Corpuscular Hemoglobin Concent 33.1 32.0-36.0 g/dL Red Cell Distribution Width 16.5 H 11.8-14.3 % Platelet Count 184 140-450 10^3/uL Mean Platelet Volume 11.4 H 6.9-10.8 fL Neutrophils (%) (Auto) 58.9 37.0-80.0 % Lymphocytes (%) (Auto) 28.0 10.0-50.0 % Monocytes (%) (Auto) 11.0 0.0-12.0 % Eosinophils (%) (Auto) 1.4 0.0-7.0 % Basophils (%) (Auto) 0.7 0.0-2.0 % Neutrophils # (Auto) 3.7 1.6-8.6 10 ^3/uL Lymphocytes # (Auto) 1.8 0.4-5.4 10 ^3/uL Monocytes # (Auto) 0.7 0-1.3 10 ^3/uL Eosinophils # (Auto) 0.1 0-0.8 10 ^3/uL Basophils # (Auto) 0 0-0.2 10 ^3/uL Nucleated Red Blood Cells 0.0 % Erythrocyte Sedimentation Rate 9 0-20 mm/hr Sodium Level 141 136-145 mmol/L Potassium Level 5.4 H 3.5-5.1 mmol/L Chloride Level 112 H 98-107 mmol/L Carbon Dioxide Level 21 20-31 mmol/L Anion Gap 8 5-15 Blood Urea Nitrogen 17 9-23 mg/dL Creatinine 0.87 0.550-1.02 mg/dL Glomerular Filtration Rate Calc 71 >90 mL/min BUN/Creatinine Ratio 19.5 10.0-20.0 Serum Glucose 116 H 74-106 mg/dL Lactic Acid Level 1.0 0.4-2.0 mmol/L Calcium Level 8.5 L 8.7-10.4 mg/dL Total Bilirubin 0.3 0.2-1.0 mg/dL Aspartate Amino Transferase (AST) 83 H 13-40 U/L Alanine Aminotransferase (ALT) 73 H 7-40 U/L Alkaline Phosphatase 96 46-116 U/L C-Reactive Protein High Sensitivity 0.16 <1.0 mg/dL Total Protein 5.8 5.7-8.2 g/dL Albumin 3.8 3.2-4.8 g/dL Current Medications Medications (Trade) Dose Ordered Sig/Alfonso Route Start Time Stop Time Status Last Admin Furosemide (Lasix Injection) 40 mg ONCE ONCE IV 12/26/24 19:15 12/26/24 19:16 DC 12/26/24 20:52 Time of 1ST Reevaluation: 19:06 Reevaluation 1ST: Unchanged Patient Education/Counseling: Diagnosis, Treatment Family Education/Counseling: No Family Present Comments MDM: patient presented with the above HPI.--bilateral leg wound lymphedema evaluation----workup was initiated. patient was found with the above mentioned diagnosis. the following medications were ordered: please refer to order lists of meds and tests obtained by myself Dr. Nunez. Patient ED course and VS have been stabilized. Patient has been reassessed in the ED and remained in a stable condition. Pertinent incidental findings were discussed with the patient and/or family. Patient/family voices understanding and is agreeable with plan. Patient has been observed in the ED adequate length of time to insure improvement/stability. Escalation of care considered: Consideration of escalation to observation or admission Inflammatory markers are all normal. No leukocytosis, no fever. Patient was DISCHARGED home in a stable condition. All the reports of any imaging studies that were ordered by myself were reviewed by myself. Sepsis Sepsis Reasesment Focused Exam Orders: Laboratory Tests 12/26/24 19:04: Lactic Acid Level 1.0 Departure 1 Departure Time of Disposition: 20:36 Impression: Primary Impression: Chronic acquired lymphedema Additional Impressions: Leg wound, left Pitting edema Disposition: HOME / SELF CARE / HOMELESS Condition: Stable Additional Instructions: Additional instructions: You MUST follow-up with your primary care/family doctor in 1 to 2 days. If you are unable to see your primary care/family doctor, please return to our emergency room for re-assessment and re-evaluation in 1 to 2 days. Return to the emergency room here in our facility or to the nearest ER [facility] if your symptoms change or worsen. CONSULTATIONS: you MUST Follow-up for consultation as soon as possible with: -gastroenterology in 1-2 days. Please call for appointment You MUST call the consultants office yourself to make an appointment. You may need to arrange that through your insurance and/or your primary/family doctor. If you are unable to see the seo consultant in 1 to 2 days, you must return to our emergency room (or any other ER of your choice) for re-assessment and re- evaluation. Adequate fluid hydration. Continue home wound care. Continue your Lasix. Discharged With: Self Critical Care Note Critical Care Time?: No I personally scribed for IZABEL NUNEZ DO ([email or web address]) on 12/26/24 at 19:00. Electronically submitted by Matt Benites ([employer]). I personally scribed for IZABEL NUNEZ DO ([email or web address]) on 12/26/24 at 19:06. Electronically submitted by Matt Benites ([email or web address]). I personally scribed for IZABEL NUNEZ DO ([email or web address]) on 12/26/24 at 19:10. Electronically submitted by Matt Benites ([employer]). IZABEL NUNEZ DO Dec 26, 2024 19:00
[2024-12-26 19:30] VITALS: PULSE 59; RESP 15; TEMP 97.8; O2SAT 95
[2024-12-26 19:31] LABS: Hematocrit 38.4 % (36.0-46.0); Hemoglobin 12.7 g/dL (12.2-16.2); Mean Corpuscular Hemoglobin 31.1 pg (28.0-32.0); Mean Corpuscular Volume 93.7 fL (80.0-100.0); Nucleated Red Blood Cells % 0.0 %
[2024-12-26 19:35] LABS: Albumin 3.8 g/dL (3.2-4.8); Alkaline Phosphatase 96 U/L (46-116); Anion Gap 8 (5-15); BUN/Creatinine Ratio 19.5 (10.0-20.0); Bilirubin, Total 0.3 mg/dL (0.2-1.0); Blood Urea Nitrogen 17 mg/dL (9-23); Sodium 141 mmol/L (136-145); Total Protein 5.8 g/dL (5.7-8.2)
[2024-12-26 19:41] LABS: Alanine Aminotransferase 73 U/L (7-40); Calcium 8.5 mg/dL (8.7-10.4); Carbon Dioxide 21 mmol/L (20-31); Chloride 112 mmol/L (98-107); Glucose 116 mg/dL (74-106); Potassium 5.4 mmol/L (3.5-5.1)
[2024-12-26] MEDS: FUROSEMIDE 40 MG/4 ML VIAL IV ONE (20:52)
[2024-12-26 21:24] VITALS: BP 146/63; PULSE 55; RESP 13; O2SAT 98
== END 2024-12-26 22:19 | disposition home or self-care (01) ==
LOC: EDBD 18:14 → EDUNIT# 18:14 → ER 18:14
DX: S80.922A Unspecified superficial injury of left lower leg, initial encounter (principal); I89.0 Lymphedema, not elsewhere classified; R60.0 Localized edema; E78.5 Hyperlipidemia, unspecified; I11.0 Hypertensive heart disease with heart failure; I50.9 Heart failure, unspecified; I48.20 Chronic atrial fibrillation, unspecified; I25.10 Atherosclerotic heart disease of native coronary artery without angina pectoris; Z79.899 Other long term (current) drug therapy; Z88.8 Allergy status to other drugs, medicaments and biological substances; Z88.2 Allergy status to sulfonamides; X58.XXXA Exposure to other specified factors, initial encounter; Y93.89 Activity, other specified; Y92.89 Other specified places as the place of occurrence of the external cause; Y99.8 Other external cause status
CPT/HCPCS: 36415; 80053; 83605; 83880; 85025; 85652; 86141; 96374; 99285; J1938

== ENCOUNTER 2025-01-10 15:38 | Emergency (ER) | payer OTHER ==
[~2025-01-10] VITALS: Ht 167.6 cm; Wt 68.2 kg
[2025-01-10] MEDS: HYDROcodone-ACET 5/325MG TAB PO ONE (16:48)
[2025-01-10] MEDS ORDERED: TRAM-626 PO (16:50)
--- NOTE | 2025-01-10 16:56 | ED.PDOC ---
Back pain HPI HPI Comments A 69 YEAR OLD FEMALE PRESENTS TO THE ED WITH COMPLAINT OF CHRONIC LOWER BACK PAIN. PATIENT REPORTS RECENT FLARE UP STARTED 2 WEEKS AGO AFTER LIFTING A HEAVY DOOR. PATIENT WAS RECENTLY SEEN AT THIS ED FOR HIGH AMMONIA LEVELS IN WHICH SHE HAD IMAGING DOWN SHOWING DJD. PATIENT IS REQUESTING PAIN MEDICATION FOR FLARE UP. SHE DENIES ANY RECENT FALLS OR BACK SURGERIES.PATIENT DENIES FEVER, CHILLS, SHORTNESS OF BREATH, CHEST PAIN, ABDOMINAL PAIN, NAUSEA, VOMITING, HEADACHE, OR OTHER COMPLAINTS. NO OTHER SYMPTOMS OR MODIFYING FACTORS AT THIS TIME. PATIENT IS ALERT, ORIENTED X 4, AND HAS STEADY GAIT. Chief Complaint: Back Pain Time Seen by MD: 16:31 Primary Care Provider: Luis Felipe Avilez Reviewed Notes: Nurses Notes, Medications, Allergies Allergies: Coded Allergies: Sulfa Antibiotics (Verified Allergy, Unknown, 11/25/23) Amlodipine (Unverified Adverse Reaction, Unknown, 07/10/24) Peripheral edema Uncoded Allergies: Gauze (Allergy, Intermediate, 11/29/24) Per patient, causes skin to darken red. Informed to refuse gauze. Home Meds Active Scripts Tramadol HCl (Tramadol HCl) 50 Mg Tab, 50 MG PO BID, #20 TAB Prov:LORI FERNANDEZ 01/10/25 Doxycycline Monohydrate (Doxycycline Monohydrate) 100 Mg Cap, 1 CAP PO BID, #14 CAP Prov:RUSSELL CORONA MD 12/16/24 Spironolactone (Aldactone) 25 Mg Tab, 1 TAB PO DAILY, #30 TAB 5 Refills Prov:RUSSELL CORONA MD 12/02/24 Doxycycline Monohydrate (Doxycycline Monohydrate) 100 Mg Cap, 1 CAP PO BID, #14 CAP Prov:RUSSELL CORONA MD 12/02/24 Furosemide (Furosemide) 40 Mg Tab, 1 TAB PO DAILY, #90 TAB 1 Refill Prov:AWA MILTON MD 11/19/24 Atorvastatin Calcium (ATORVASTATIN CALCIUM) 20 Mg Tab, 20 MG PO HS, #60 TAB Prov:AWA MILTON MD 11/19/24 Spironolactone (Spironolactone) 25 Mg Tab, 1 TAB PO DAILY, #60 TAB Prov:AWA MILTON MD 11/19/24 Reported Medications Olmesartan Medoxomil (Olmesartan Medoxomil) 20 Mg Tab, 1 TAB PO DAILY 11/29/24 Gabapentin (Gabapentin) 100 Mg Cap, 100 MG PO TID 11/29/24 Tramadol Hcl (Tramadol Hcl) 50 Mg Tab, 1-2 TAB PO BID PRN for 30 Days, #120 08/01/24 Information Source: Patient Mode of Arrival: EMS Timing: Weeks (2) Duration: Since onset Location of Back pain: (B) Lumbar Radiates to: Posterior: (B) Buttocks, (B) Thigh Radiates to: Medial: (B) Buttocks, (B) Thigh Radiates to: Lateral: (B) Buttocks, (B) Thigh Severity: Moderate Quality: Aching, Burning, Cramping Onset: Spontaneous History of: Chronic Back Pain Modifying Factors: Movement, Walking Associated signs and symptoms: None Past Medical History PAST MEDICAL HISTORY: AFIB, Asthma, CAD, CHF, High Lipids, HTN Past Medical History (Other): CHRONIC LOW BACK PAIN Surgical History: Denies all surgeries SHORTHAND TEACHER History: No Pertinent SHORTHAND TEACHER History Family History Family History: Reviewed,noncontributory to illness, Unknown Social History Smoker: Non-Smoker Alcohol: Denies ETOH Use Drugs: Denies Drug Use Lives In: Home Constitutional: denies: chills, diaphoresis, fatigue, fever, malaise, sweats, weakness, others EENTM: denies: blurred vision, double vision, ear bleeding, ear discharge, ear drainage, ear pain, ear ringing, eye pain, eye redness, hearing loss, mouth pain, mouth swelling, nasal discharge, nose bleeding, nose congestion, nose pain, photophobia, tearing, throat pain, throat swelling, voice changes, others Respiratory: denies: cough, hemoptysis, orthopnea, SOB at rest, shortness of breath, SOB with excertion, stridor, wheezing, others Cardiovascular: denies: chest pain, dizzy spells, diaphoresis, Dyspnea on exertion, edema, irregular heart beat, left arm pain, lightheadedness, palpitations, PND, syncope, others Gastrointestinal: denies: abdomen distended, abdominal pain, blood streaked bowels, constipated, diarrhea, dysphagia, difficulty swallowing, hematemesis, melena, nausea, poor appetite, poor fluid intake, rectal bleeding, rectal pain, vomiting, others Genitourinary: denies: abnormal vagina bleeding, burning, dyspareunia, dysuria, flank pain, frequency, hematuria, incontinence, pain, , vagina discharge, urgency, others Neurological: denies: dizziness, fainting, headache, left sided numbness, left sided weakness, numbness, paresthesia, pre-existing deficit, right sided numbness, right sided weakness, seizure, speech problems, tingling, tremors, w eakness, others Musculoskeletal: reports: back pain, muscle pain; denies: gout, joint pain, joint swelling, muscle stiffness, neck pain, others Integumetry: denies: bruises, change in color, change in hair/nails, dryness, laceration, lesions, lumps, rash, wounds, others Allergic/Immunocompromised: denies: Difficulty Healing, Frequent Infections, Hives, Itching, others Hematologic/Lymphatic: denies: anemia, blood clots, easy bleeding, easy bruising, swollen glands, others Endocrine: denies: excessive hunger, excessive sweating, excessive thirst, excessive urination, flushing, intolerance to cold, intolerance to heat, unexplained weight gain, unexplained weight loss, others Psychiatric: denies: anxiety, bipolar disorder, depression, hopeless, panic disorder, schizophrenia, sleepless, suicidal, others All Other Systems: Reviewed and Negative Physical Exam General Appearance: No Apparent Distress, Normal HEENT: Normal ENT Inspection, PERRL/EOMI, Pharynx Normal, TMs Normal Neck: Full Range of Motion, Non-Tender, Normal, Normal Inspection Respiratory: Chest Non-Tender, Lungs Clear, No Accessory Muscle Use, No Respiratory Distress, Normal Breath Sounds Cardiovascular: No Edema, No JVD, No Murmur, No Gallop, Normal Peripheral Pulses, Regular Rate/Rhythm Breast Exam: Deferred Gastrointestinal: No Organomegaly, Non Tender, No Pulsatile Mass, Normal Bowel Sounds, Soft Genitalia: Deferred Pelvic: Deferred Rectal: Deferred Extremities: No calf tenderness, Normal capillary refill, Normal inspection, Normal range of motion, Non-tender, No pedal edema Musculoskeletal : Location: Bilateral Extremity Location: Back Apperance: Tenderness (AND MUSCLE SPASM ON LOW BACK, NO BONY TENDERNESS, SWELLING AND DEFORMITY. ) Neurologic: Alert, court magistrate II-XII nml as Tested, No Motor Deficits, Normal Affect, Normal Mood, No Sensory Deficits Cerebellar Function: Normal Reflexes: Normal Skin: Dry, Normal Color, Warm Peripheral Pulses: 2+ carotid (R), 2+ carotid (L), 2+ dorsalis pedis (R), 2+ dorsalis pedis (L) Lymphatic: No Adenopathy Was a procedure done? Was a procedure done?: No Back Pain Differential Dx Differential Diagnosis: DJD, Musculoskeletal Pain, Strain X-Ray, Labs, Meds, VS Vital Signs Date Time Temp Pulse Resp B/P (MAP) Pulse Ox O2 Delivery O2 Flow Rate FiO2 01/10/25 15:44 98.6 71 12 110/78 96 98.6 Current Medications Medications (Trade) Dose Ordered Sig/Alfonso Route Start Time Stop Time Status Last Admin Acetaminophen/ Hydrocodone Bitart (Brothers 5/325MG Tab) 1 tab ONCE ONCE PO 01/10/25 16:45 01/10/25 16:46 DC 01/10/25 16:48 X-Ray, Labs, Meds, VS Comment EXTERNAL MEDICAL RECORDS REVIEWED: [NONE] INDEPENDENT HISTORIANS: [NONE] SOCIAL DETERMINANTS OF HEALTH: [NONE] LABS ORDERED: NONE REVIEWED AND INTERPRETED RESULTS: NONE IMAGING ORDERED: NONE TREATMENTS ORDERED: NORCO 5/325MG PROCEDURES PERFORMED: NONE CRITICAL CARE TIME: NONE I HAVE DISCUSSED THE PATIENT WITH THE ATTENDING PHYSICIAN, . HE AGREES WITH THE PATIENT'S PLAN OF CARE AND DISPOSITION. RX: ULTRAM 50MG BASED ON THE PATIENT'S PERSISTENCE OF SYMPTOMS, THE PATIENT SOUGHT OUT ED CONSULT. BASED ON MY PHYSICAL EXAMINATION AND PATIENT'S HISTORY OF CHRONIC BACK PAIN, THERE IS NO NEW INJURY TO THE PATIENT'S BACK. THE PATIENT DENIES ANY NUMBNESS, WEAKNESS, TINGLING SENSATION, URINARY/BOWEL INCONTINENCE. THERE ARE NO SIGNS AND SYMPTOMS OF CAUDA EQUINA. THE PATIENT STATES THAT THE PAIN IS THE SAME WHEN THEY HAVE BACK PAIN FLARE-UP AND THAT THEY ONLY NEED PAIN MEDICATION IN THE ER. AT THIS POINT, THERE IS NO INDICATION FOR ANY IMAGING. THE PATIENT WAS ADVISED TO FOLLOW UP WITH ORTHO SPECIALIST FOR THEIR CHRONIC LOWER BACK PAIN AND PAIN MANAGEMENT DOCTOR FOR PAIN CONTROL. PATIENT WAS GIVEN NORCO 5/325MG FOR PAIN MEDICATION. OVERALL PATIENT'S VITAL SIGNS ARE STABLE AND THE PATIENT WILL BE DISCHARGED Time of 1ST Reevaluation: 17:10 Reevaluation 1ST: Improved Patient Education/Counseling: Diagnosis, Treatment, Need For Follow Up Family Education/Counseling: Diagnosis, Treatment, Need For Follow Up, No Family Present Medical Screening: No EMC Exist At This Time SEPSIS Sepsis Screen Date sepsis recognized/suspect: Jan 10, 2025 Time Sepsis recognized/suspect: 1540 Recent Procedure: No On Antibiotic Therapy: No Respiratory Rate >20: No Heart Rate >90: No Temp<36 C (96.8 F) or >38.3 C: No SBP <90 or MAP <65 mmHG: No New Acute Mental Status Change: No Is the patient on CPAP, BIPAP,: No Vital Signs Date Time Temp Pulse Resp B/P (MAP) Pulse Ox O2 Delivery O2 Flow Rate FiO2 01/10/25 15:44 98.6 71 12 110/78 96 98.6 Medications Medications Dose Ordered Sig/Alfonso Route Start Time Stop Time Status Last Admin Dose Admin Acetaminophen/ Hydrocodone Bitart 1 tab ONCE ONCE PO 01/10/25 16:45 01/10/25 16:46 DC 01/10/25 16:48 Departure 1 Departure Time of Disposition: 18:20 Impression: Primary Impression: Acute exacerbation of chronic low back pain Additional Impression: Pain management Disposition: 01 HOME / SELF CARE / HOMELESS Condition: Stable Additional Instructions: F/U PCP IN 2 DAYS RECHECK. IF CONDITION BECOME WORSE, RETURN TO ED [facility]. e-Prescriptions Tramadol HCl (Tramadol HCl) 50 Mg Tab 50 MG PO BID, #20 TAB Prov: LORI FERNANDEZ 01/10/25 Discharged With: Self Critical Care Note Critical Care Time?: No Stability Stability form required: No I personally scribed for LORI FERNANDEZ ([email or web address]) on 01/10/25 at 16:56. Electronically submitted by Aniyah Rodriguez ([facility]). LORI FERNANDEZ Jan 10, 2025 16:56
[2025-01-10 17:11] VITALS: BP 110/78; PULSE 71; RESP 12; TEMP 98.6; O2SAT 96
== END 2025-01-10 17:12 | disposition home or self-care (01) ==
LOC: EDBD 15:38 → ER 15:44
DX: G89.29 Other chronic pain (principal); M54.50 Low back pain, unspecified; I48.91 Unspecified atrial fibrillation; I11.0 Hypertensive heart disease with heart failure; I50.9 Heart failure, unspecified; Z88.2 Allergy status to sulfonamides; Z01.89 Encounter for other specified special examinations; Z79.899 Other long term (current) drug therapy

== ENCOUNTER 2025-02-21 14:28 | Inpatient (IN) | payer OTHER ==
[~2025-02-21] VITALS: Ht 167.6 cm; Wt 88.6 kg
[~2025-02-21 14:28] MED LIST changes: +TRAM-626 PO
--- NOTE | 2025-02-21 15:18 | ED.PDOC ---
Musculoskeletal HPI Comments A 69 YEAR OLD FEMALE BROUGHT IN BY AMBULANCE PRESENTS TO THE ED WITH COMPLAINT OF BILATERAL LOWER LEG PAIN AND SWELLING. PATIENT STATES SHE HAS CHRONIC BILATERAL LOWER LEG PAIN AND SWELLING AND NOTES THAT HAS BEEN WORSE OVER THE PAST 1 WEEK. PATIENT REPORTS SHE WAS INSTRUCTED TO GO TO THE ED BY CHEMICAL WORKER THAT SHE CALLED FOR EVALUATION OF POSSIBLE DVT AND INFECTION. PATIENT DENIES FEVER, CHILLS, SHORTNESS OF BREATH, CHEST PAIN, ABDOMINAL PAIN, NAUSEA, VOMITING, HEADACHE, OR OTHER COMPLAINTS. NO OTHER SYMPTOMS OR MODIFYING FACTORS AT THIS TIME. PATIENT IS ALERT, ORIENTED X 4, AND HAS STEADY GAIT. Chief Complaint: Back Pain Time Seen by MD: 14:40 Primary Care Provider: Luis Felipe Avilez Reviewed Notes: Nurses Notes, Circuit Design Engineer Notes, Medications, Allergies Allergies: Coded Allergies: Sulfa Antibiotics (Verified Allergy, Unknown, 11/25/23) Amlodipine (Unverified Adverse Reaction, Unknown, 07/10/24) Peripheral edema Uncoded Allergies: Gauze (Allergy, Intermediate, 11/29/24) Per patient, causes skin to darken red. Informed to refuse gauze. Home Meds Active Scripts Tramadol HCl (Tramadol HCl) 50 Mg Tab, 50 MG PO BID, #20 TAB Prov:LORI FERNANDEZ 01/10/25 Doxycycline Monohydrate (Doxycycline Monohydrate) 100 Mg Cap, 1 CAP PO BID, #14 CAP Prov:RUSSELL CORONA MD 12/16/24 Spironolactone (Aldactone) 25 Mg Tab, 1 TAB PO DAILY, #30 TAB 5 Refills Prov:RUSSELL CORONA MD 12/02/24 Doxycycline Monohydrate (Doxycycline Monohydrate) 100 Mg Cap, 1 CAP PO BID, #14 CAP Prov:RUSSELL CORONA MD 12/02/24 Furosemide (Furosemide) 40 Mg Tab, 1 TAB PO DAILY, #90 TAB 1 Refill Prov:AWA MILTON MD 11/19/24 Atorvastatin Calcium (ATORVASTATIN CALCIUM) 20 Mg Tab, 20 MG PO HS, #60 TAB Prov:AWA MILTON MD 11/19/24 Spironolactone (Spironolactone) 25 Mg Tab, 1 TAB PO DAILY, #60 TAB Prov:AWA MILTON MD 11/19/24 Reported Medications Olmesartan Medoxomil (Olmesartan Medoxomil) 20 Mg Tab, 1 TAB PO DAILY 11/29/24 Gabapentin (Gabapentin) 100 Mg Cap, 100 MG PO TID 11/29/24 Tramadol Hcl (Tramadol Hcl) 50 Mg Tab, 1-2 TAB PO BID PRN for 30 Days, #120 08/01/24 Information Source: Patient, Emergency Med Personnel Mode of Arrival: EMS Location: Bilateral Extremity Location: Leg Timing: Days Prehospital treatment: None Severity: Moderate Able to Move Extremity: Yes Bear Weight: Fully Pain: Moderate Mechanism: No Trauma, Spontaneous Circumstances: Spontaneous Onset of Symptoms: Spontaneous Symptoms: Swelling, Pain, Erythema DVT Risk Factors: CHF Last Tetanus: Unknown Associated signs and symptoms: Leg pain Past Medical History PAST MEDICAL HISTORY: AFIB, Asthma, CAD, CHF, High Lipids, HTN Surgical History: Denies all surgeries HOME HEALTH CARE CASE MANAGER History: No Pertinent HOME HEALTH CARE CASE MANAGER History Family History Family History: Reviewed,noncontributory to illness Social History Smoker: Non-Smoker Alcohol: Denies ETOH Use Drugs: Denies Drug Use Lives In: Home Constitutional: denies: chills, diaphoresis, fatigue, fever, malaise, sweats, weakness, others EENTM: denies: blurred vision, double vision, ear bleeding, ear discharge, ear drainage, ear pain, ear ringing, eye pain, eye redness, hearing loss, mouth pain, mouth swelling, nasal discharge, nose bleeding, nose congestion, nose pain, photophobia, tearing, throat pain, throat swelling, voice changes, others Respiratory: denies: cough, hemoptysis, orthopnea, SOB at rest, shortness of breath, SOB with excertion, stridor, wheezing, others Cardiovascular: denies: chest pain, dizzy spells, diaphoresis, Dyspnea on exertion, edema, irregular heart beat, left arm pain, lightheadedness, palpitations, PND, syncope, others Gastrointestinal: denies: abdomen distended, abdominal pain, blood streaked bowels, constipated, diarrhea, dysphagia, difficulty swallowing, hematemesis, melena, nausea, poor appetite, poor fluid intake, rectal bleeding, rectal pain, vomiting, others Genitourinary: denies: abnormal vagina bleeding, burning, dyspareunia, dysuria, flank pain, frequency, hematuria, incontinence, pain, , vagina discharge, urgency, others Neurological: denies: dizziness, fainting, headache, left sided numbness, left sided weakness, numbness, paresthesia, pre-existing deficit, right sided numbness, right sided weakness, seizure, speech problems, tingling, tremors, wea kness, others Musculoskeletal: reports: muscle pain, others (BILATERAL LOWER LEG PAIN AND SWELLING); denies: back pain, gout, joint pain, joint swelling, muscle stiffness, neck pain Integumetry: denies: bruises, change in color, change in hair/nails, dryness, laceration, lesions, lumps, rash, wounds, others Allergic/Immunocompromised: denies: Difficulty Healing, Frequent Infections, Hives, Itching, others Hematologic/Lymphatic: denies: anemia, blood clots, easy bleeding, easy bruising, swollen glands, others Endocrine: denies: excessive hunger, excessive sweating, excessive thirst, excessive urination, flushing, intolerance to cold, intolerance to heat, unexplained weight gain, unexplained weight loss, others Psychiatric: denies: anxiety, bipolar disorder, depression, hopeless, panic disorder, schizophrenia, sleepless, suicidal, others All Other Systems: Reviewed and Negative Physical Exam General Appearance: No Apparent Distress, Obese HEENT: Normal ENT Inspection, PERRL/EOMI, Pharynx Normal, TMs Normal Neck: Full Range of Motion, Non-Tender, Normal, Normal Inspection Respiratory: Chest Non-Tender, Lungs Clear, No Accessory Muscle Use, No Respiratory Distress, Normal Breath Sounds Cardiovascular: No Edema, No JVD, No Murmur, No Gallop, Normal Peripheral Pulses, Regular Rate/Rhythm Breast Exam: Deferred Gastrointestinal: No Organomegaly, Non Tender, No Pulsatile Mass, Normal Bowel Sounds, Soft Genitalia: Deferred Pelvic: Deferred Rectal: Deferred Extremities: Calf tenderness, Inflammation, Leg edema, Normal capillary refill, Normal range of motion, Pedal edema (2+PEDAL EDEMA BILATERAL ANKLE. ), Swelling (TENDERNESS AND SWELLING BILATERAL LOWER LEGS. ), Tender (AND SWELLING WITH REDNESS ON BILATERAL LOWER LEGS. ) Musculoskeletal : Apperance: Normal Neurologic: Alert, sales and support center agent II-XII nml as Tested, No Motor Deficits, Normal Affect, Normal Mood, No Sensory Deficits Cerebellar Function: Normal Reflexes: Normal Skin: Dry, Warm, Other (LOCALIZED ERYTHEMA, SWELLING AND TENDERNESS ON BILATERAL LOWER LEGS, L>R. NO OPEN WOUND SEEN. +CELLULITIS OF LOWER LEGS. ) Peripheral Pulses: 2+ carotid (R), 2+ carotid (L), 2+ dorsalis pedis (R), 2+ dorsalis pedis (L) Lymphatic: No Adenopathy Was a procedure done? Was a procedure done?: No Differential Diagnosis EXT Differential Diagnosis: Cellulitis, CHF, Deep Vein Thrombosis, Strain, Arthritis, Bursitis X-Ray, Labs, Meds, VS Vital Signs Date Time Temp Pulse Resp B/P (MAP) Pulse Ox O2 Delivery O2 Flow Rate FiO2 02/21/25 14:29 97.6 82 17 110/86 96 97.6 Lab Test 02/21/25 15:55 02/21/25 15:38 Range/Units Lactic Acid Level 1.3 0.4-2.0 mmol/L White Blood Count 6.2 4.4-10.8 10^3/uL Red Blood Count 4.40 4.0-5.20 10^6/uL Hemoglobin 14.0 12.2-16.2 g/dL Hematocrit 42.1 36.0-46.0 % Mean Corpuscular Volume 95.6 80.0-100.0 fL Mean Corpuscular Hemoglobin 31.8 28.0-32.0 pg Mean Corpuscular Hemoglobin Concent 33.2 32.0-36.0 g/dL Red Cell Distribution Width 16.0 H 11.8-14.3 % Platelet Count 211 140-450 10^3/uL Mean Platelet Volume 11.2 H 6.9-10.8 fL Neutrophils (%) (Auto) 63.8 37.0-80.0 % Lymphocytes (%) (Auto) 25.6 10.0-50.0 % Monocytes (%) (Auto) 9.0 0.0-12.0 % Eosinophils (%) (Auto) 1.1 0.0-7.0 % Basophils (%) (Auto) 0.5 0.0-2.0 % Neutrophils # (Auto) 4.0 1.6-8.6 10 ^3/uL Lymphocytes # (Auto) 1.6 0.4-5.4 10 ^3/uL Monocytes # (Auto) 0.6 0-1.3 10 ^3/uL Eosinophils # (Auto) 0.1 0-0.8 10 ^3/uL Basophils # (Auto) 0 0-0.2 10 ^3/uL Nucleated Red Blood Cells 0.1 % Prothrombin Time 10.9 9.3-11.8 sec Prothrombin Time INR 1.03 0.9-1.15 Sodium Level 143 136-145 mmol/L Potassium Level 4.9 3.5-5.1 mmol/L Chloride Level 109 H 98-107 mmol/L Carbon Dioxide Level 25 20-31 mmol/L Anion Gap 9 5-15 Blood Urea Nitrogen 27 H 9-23 mg/dL Creatinine 0.87 0.550-1.02 mg/dL Glomerular Filtration Rate Calc 71 >90 mL/min BUN/Creatinine Ratio 31.0 H 10.0-20.0 Serum Glucose 104 74-106 mg/dL Calcium Level 9.4 8.7-10.4 mg/dL B-Type Natriuretic Peptide 60.70 0-100 pg/mL CHEST XRAY: 1 view(s) was obtained HISTORY: LEGS SWELLING, HX OF CHF COMPARISON: XY CHEST XRAY 1 VIEW on DOS: 12/09/24, XY CHEST PORTABLE on DOS: 11/29/24, XY CHEST PORTABLE on DOS: 09/05/24, XY CHEST XRAY 1 VIEW on DOS: 07/30/24, XY CHEST XRAY 1 VIEW on DOS: 07/10/24 FINDINGS: Expansion: Normal. Lungs parenchyma: The lungs are clear. Pleura: No pleural effusion. No pneumothorax. Mediastinum: Heart size is normal. There is aortic arthrosclerosis. IMPRESSION: 1. No radiograph acute cardio pulmonary abnormalities. ATED BY: KIRA ALVARADO MD DICTATED DATE/TIME: 02/21/25 154 SIGNED BY: KIRA ALVARADO MD SIGNED DATE/TIME: 02/21/25 154 CC: Technique: Real-time ultrasound imaging, with color Doppler and compression of the bilateral common femoral vein, femoral vein, greater saphenous vein, and popliteal vein. Indication: LOWER LEGS PAIN AND SWELLING Comparison: US RT LOWER DVT on DOS: 12/09/24, US BILAT LOWER DVT on DOS: 11/15/24, US LT LOWER DVT on DOS: 10/10/24, US BILAT LOWER DVT on DOS: 08/22/24, US BILAT LOWER DVT on DOS: 01/19/24 Findings: There is normal compressibility and flow augmentation in all of the imaged deep veins. There are no filling defects. Impression: No evidence of DVT in the bilateral lower extremities ATED BY: LAUREN VALADEZ MD DICTATED DATE/TIME: 02/21/251619 SIGNED BY: LAUREN VALADEZ MD SIGNED DATE/TIME: 02/21/251619 CC: X-Ray, Labs, Meds, VS Comment EXTERNAL MEDICAL RECORDS REVIEWED: [NONE] INDEPENDENT HISTORIANS: [NONE] SOCIAL DETERMINANTS OF HEALTH: [NONE] LABS ORDERED: CBC, BNP, BMP, TROPONIN, UA REVIEWED AND INTERPRETED RESULTS: IMAGING ORDERED: XR CHEST, CV VENOUS DOPPLER LOW EXT BILAT TREATMENTS ORDERED: ROCEPHIN 1 G IV, CLINDAMYCIN 900 MG IV PROCEDURES PERFORMED: NONE CRITICAL CARE TIME: NONE I HAVE DISCUSSED THE PATIENT WITH THE ATTENDING PHYSICIAN DR. DEVRIES AND HE AGREES WITH THE PATIENT'S PLAN OF CARE. UPON MY PHYSICAL EXAMINATION, THE PATIENT HAD BILATERAL LOWER LEG SWELLING AND REDNESS WITH HER LEFT LEG BEING WORSE THAN HER RIGHT, CONSISTENT WITH ACUTE CELLULITIS, BUT NO OPEN WOUNDS WERE SEEN. DUE TO THE PATIENT'S MEDICAL HISTORY, AGE, AND CLINICAL EXAM FINDINGS REVEALING FINDINGS CONSISTENT WITH ACUTE CELLULITIS, I HAVE DETERMINED THE PATIENT NEEDS TO BE ADMITTED FOR FURTHER TREATMENT AND EVALUATION. THE ON-CALL HOSPITALIST WILL BE CONTACTED FOR ADMISSION OF THIS PATIENT. Images Reviewed?: Images reviewed and evaluated by me Time of 1ST Reevaluation: 17:04 Reevaluation 1ST: Improved Patient Education/Counseling: Diagnosis, Treatment Family Education/Counseling: Diagnosis, Treatment Sepsis Sepsis Reasesment Focused Exam Orders: Laboratory Tests 02/21/25 15:55: Lactic Acid Level 1.3 Departure 1 Departure Time of Disposition: 17:03 Impression: Primary Impression: Cellulitis of both lower extremities Disposition: 09 ADMITTED INPATIENT Condition: Serious Critical Care Note Critical Care Time?: No Stability Stability form required: Yes Unstable for transfer: Requires medication, ED Physician Assesment, Possible rapid decline I personally scribed for LORI FERNANDEZ ([email or web address]) on 02/21/25 at 15:18. Electronically submitted by Delroy Mendez ([email or web address]). I personally scribed for LORI FERNANDEZ ([email or web address]) on 02/21/25 at 16:42. Electronically submitted by Delroy Mendez ([email or web address]). LORI FERNANDEZ Feb 21, 2025 15:18
--- NOTE | 2025-02-21 15:47 | DVH ---
CHEST XRAY: 1 view(s) was obtained HISTORY: LEGS SWELLING, HX OF CHF COMPARISON: XY CHEST XRAY 1 VIEW on DOS: 12/09/24, XY CHEST PORTABLE on DOS: 11/29/24, XY CHEST PORTABLE on DOS: 09/05/24, XY CHEST XRAY 1 VIEW on DOS: 07/30/24, XY CHEST XRAY 1 VIEW on DOS: 07/10/24 FINDINGS: Expansion: Normal. Lungs parenchyma: The lungs are clear. Pleura: No pleural effusion. No pneumothorax. Mediastinum: Heart size is normal. There is aortic arthrosclerosis. IMPRESSION: 1. No radiograph acute cardio pulmonary abnormalities.
[2025-02-21 15:59] LABS: Hematocrit 42.1 % (36.0-46.0); Hemoglobin 14.0 g/dL (12.2-16.2); Mean Corpuscular Hemoglobin 31.8 pg (28.0-32.0); Mean Corpuscular Volume 95.6 fL (80.0-100.0); Nucleated Red Blood Cells % 0.1 %
[2025-02-21 16:10] LABS: Potassium 4.9 mmol/L (3.5-5.1); Sodium 143 mmol/L (136-145)
[2025-02-21 16:11] LABS: Anion Gap 9 (5-15); Calcium 9.4 mg/dL (8.7-10.4); Carbon Dioxide 25 mmol/L (20-31); Chloride 109 mmol/L (98-107)
[2025-02-21 16:13] LABS: INR 1.03 (0.9-1.15); Prothrombin Time 10.9 sec (9.3-11.8)
[2025-02-21 16:16] LABS: BUN/Creatinine Ratio 31.0 (10.0-20.0); Glucose 104 mg/dL (74-106)
[2025-02-21 16:17] LABS: Blood Urea Nitrogen 27 mg/dL (9-23)
--- NOTE | 2025-02-21 16:19 | DVH ---
Technique: Real-time ultrasound imaging, with color Doppler and compression of the bilateral common femoral vein, femoral vein, greater saphenous vein, and popliteal vein. Indication: LOWER LEGS PAIN AND SWELLING Comparison: US RT LOWER DVT on DOS: 12/09/24, US BILAT LOWER DVT on DOS: 11/15/24, US LT LOWER DVT on DO S: 10/10/24, US BILAT LOWER DVT on DOS: 08/22/24, US BILAT LOWER DVT on DOS: 01/19/24 Findings: There is normal compressibility and flow augmentation in all of the imaged deep veins. There are no f illing defects. Impression: No evidence of DVT in the bilateral lower extremities
[2025-02-21] MEDS: CLINDAMYCIN 900MG IV 50 ML IV ONE (17:38)
[2025-02-21 18:57] VITALS: PULSE 60; RESP 19; O2SAT 98
[2025-02-21] MEDS: SODIUM CHLORIDE 0.9% 1,000 ML IV ONE (19:08)
--- NOTE | 2025-02-21 20:28 | DVHHPRES ---
History of Present Illness Resident Creating Document: GLORIA MCKENZIE History of Present Illness This is a 69 female with past history of paroxysmal atrial fibrillation, hypertension, chronic lymphedema, atrial fibrillation, dyslipidemia, presented to the ER with chief complaint of worsening pain and swelling in bilateral lower limbs. She has chronic swelling in bilateral lower extremities due to lymphedema, her swelling has been worsening since the last 1 week, associated with pain. She also complains of left knee pain that started today, described as throbbing, 10/10, radiating to left thigh and lower leg. Patient reports calling ambulance due to worsening pain and was brought to the ER by paramedics. She uses electrical wheelchair for ambulation. Previous hospitalization: In December 2024 for lower extremity cellulitis, was treated with IV antibiotics and discharged home on oral doxycycline for 7 days. PMHx: Paroxysmal atrial fibrillation, hypertension, chronic lymphedema, atrial fibrillation, dyslipidemia, sciatica, osteoarthritis, moderate aortic insufficiency PSHx: Foot surgery in 1979 Social history: Denies smoking, alcohol, recreational drug use. Lives in house alone, full code, next to kin is Nanda, adopted family. Home medication: Furosemide, gabapentin, atorvastatin Allergic history: Amlodipine, sulfa antibiotics, gauze Patient was examined at bedside today. Patient is admitted for further evaluation and management. Review of Systems Review of Systems ROS: Constitutional: Denies weight loss, fever and chills. HEENT: Denies changes in vision and hearing. Respiratory: Denies shortness of breath and cough Cardiovascular: Denies chest discomfort or palpitations GI: Denies abdominal pain, nausea, vomiting and diarrhea. : Denies dysuria and urinary frequency. Musculoskeletal: Denies myalgias and joint pain Skin: Denies rash and pruritus. Neurological: Denies dizziness, headache, vision or hearing problems Allergies: Coded Allergies: Sulfa Antibiotics (Verified Allergy, Unknown, 11/25/23) Amlodipine (Unverified Adverse Reaction, Unknown, 07/10/24) Peripheral edema Uncoded Allergies: Gauze (Allergy, Intermediate, 11/29/24) Per patient, causes skin to darken red. Informed to refuse gauze. Exam Vital Signs Vital Signs Date Time Temp Pulse Resp B/P (MAP) Pulse Ox O2 Delivery O2 Flow Rate FiO2 02/21/25 18:57 60 19 98 Room Air* 0 21 02/21/25 18:57 97.7 119/99 (106) 97.7 Exam General: Patient alert and oriented in person, place and time. Patient following commands. HEENT: Normocephalic, atraumatic, dry mucous membranes Respiratory/pulmonary: Clear lungs bilaterally, vesicular murmurs present in almost all lung brizuela, no associated crackles or wheezes. Cardiovascular: Normal heart sounds S1 and S2 with no associated murmurs Abdomen: Abdomen nondistended, there is no pain to palpation in any of the abdominal quadrants, no palpable masses. Extremities: Bilateral pitting edema grade 2 in lower extremities. Bilateral lower limb- Swelling, erythema, dry skin, warm to touch and tenderness on palpation present. Skin: Erythematous, dry skin of bilateral lower extremities. Neurological: Reduced sensory strength bilaterally [id number]. Normal motor strength in bilateral lower extremities. Labs/Xrays Labs Test 02/21/25 15:55 02/21/25 15:38 Range/Units Lactic Acid Level 1.3 0.4-2.0 mmol/L White Blood Count 6.2 4.4-10.8 10^3/uL Red Blood Count 4.40 4.0-5.20 10^6/uL Hemoglobin 14.0 12.2-16.2 g/dL Hematocrit 42.1 36.0-46.0 % Mean Corpuscular Volume 95.6 80.0-100.0 fL Mean Corpuscular Hemoglobin 31.8 28.0-32.0 pg Mean Corpuscular Hemoglobin Concent 33.2 32.0-36.0 g/dL Red Cell Distribution Width 16.0 H 11.8-14.3 % Platelet Count 211 140-450 10^3/uL Mean Platelet Volume 11.2 H 6.9-10.8 fL Neutrophils (%) (Auto) 63.8 37.0-80.0 % Lymphocytes (%) (Auto) 25.6 10.0-50.0 % Monocytes (%) (Auto) 9.0 0.0-12.0 % Eosinophils (%) (Auto) 1.1 0.0-7.0 % Basophils (%) (Auto) 0.5 0.0-2.0 % Neutrophils # (Auto) 4.0 1.6-8.6 10 ^3/uL Lymphocytes # (Auto) 1.6 0.4-5.4 10 ^3/uL Monocytes # (Auto) 0.6 0-1.3 10 ^3/uL Eosinophils # (Auto) 0.1 0-0.8 10 ^3/uL Basophils # (Auto) 0 0-0.2 10 ^3/uL Nucleated Red Blood Cells 0.1 % Prothrombin Time 10.9 9.3-11.8 sec Prothrombin Time INR 1.03 0.9-1.15 Sodium Level 143 136-145 mmol/L Potassium Level 4.9 3.5-5.1 mmol/L Chloride Level 109 H 98-107 mmol/L Carbon Dioxide Level 25 20-31 mmol/L Anion Gap 9 5-15 Blood Urea Nitrogen 27 H 9-23 mg/dL Creatinine 0.87 0.550-1.02 mg/dL Glomerular Filtration Rate Calc 71 >90 mL/min BUN/Creatinine Ratio 31.0 H 10.0-20.0 Serum Glucose 104 74-106 mg/dL Calcium Level 9.4 8.7-10.4 mg/dL B-Type Natriuretic Peptide 60.70 0-100 pg/mL SEPSIS Sepsis Screen Date sepsis recognized/suspect: Feb 21, 2025 Time Sepsis recognized/suspect: 1856 Recent Procedure: No On Antibiotic Therapy: No Respiratory Rate >20: No Heart Rate >90: No Temp<36 C (96.8 F) or >38.3 C: No SBP <90 or MAP <65 mmHG: No New Acute Mental Status Change: No Is the patient on CPAP, BIPAP,: No Physician Orders Blood Culture (02/21/25 15:10) Bilat Lower Dvt (02/21/25 15:10) Chest Xray 1 View (02/21/25 15:13) Heplock Iv (02/21/25 ) Sodium Chloride 0.9% (02/21/25 16:45) Vital Signs Date Time Temp Pulse Resp B/P (MAP) Pulse Ox O2 Delivery O2 Flow Rate FiO2 02/21/25 18:57 60 19 98 Room Air* 0 21 02/21/25 18:57 97.7 60 19 119/99 (106) 98 97.7 02/21/25 14:29 97.6 82 17 110/86 96 97.6 Laboratory Tests Test 02/21/25 15:38 02/21/25 15:55 White Blood Count 6.2 10^3/uL (4.4-10.8) Lactic Acid Level 1.3 mmol/L (0.4-2.0) Medications Medications Dose Ordered Sig/Alfonso Route Start Time Stop Time Status Last Admin Dose Admin Ceftriaxone Sodium 50 ml @ 100 mls/hr ONCE ONCE IV 02/21/25 16:45 02/21/25 17:14 DC 02/21/25 19:08 100 MLS/HR Clindamycin Phosphate 50 ml @ 50 mls/hr ONCE ONCE IV 02/21/25 16:45 02/21/25 17:44 DC 02/21/25 17:38 50 MLS/HR Assessment/Plan Assessment/Plan Cellulitis Chronic lymphedema Peripheral neuropathy Osteoarthritis Started on IV clindamycin Pain management with IV Toradol, p.o. [place] Continue gabapentin 100 mg p.o. t.i.d. X-ray left knee shows degenerative changes. Hypertension Continue spironolactone Hyperlipidemia Continue atorvastatin 20 mg daily DVT ruled out LL Doppler negative for DVT Paroxysmal Atrial fibrillation (chads Vasc 3) - secondary hypercoagulability state Therapeutic dose enoxaparin Chads Vasc 3; consider oral anticoagulants as discharge planning Peripheral arterial disease Duplex ultrasound from 12/2024 shows 75% stenosis of right common femoral artery DIET: Cardiac DVT PROPHYLAXIS: Lovenox GI PROPHYLAXIS: Protonix CODE STATUS: Goals of care discussed with patient at bedside for more than 35 minutes. Full code DISPOSITION: Med/surge Patient's status and plan discussed with the patient. Case discussed with Dr. Brewer. Plan discussed with: Patient, Other (Nurses) Date of Service: Feb 21, 2025 Billing Provider: MORENITA BREWER MD Common Visit Codes: 60787-[id number] INP/OBS CARE (HIGH) Secondary Visit Codes: [id number]-[id number] CARE PLAN 30 MINUTES GLORIA MCKENZIE RESIDENT Feb 21, 2025 20:28 CACHORRO AYALA RESIDENT Feb 22, 2025 07:26
[2025-02-21 20:57] LABS: Alanine Aminotransferase 23.0 U/L (7-40); Albumin 4.3 g/dL (3.2-4.8); Alkaline Phosphatase 90.0 U/L (46-116); Magnesium 1.9 mg/dL (1.6-2.6); Total Protein 6.9 g/dL (5.7-8.2)
[2025-02-21 20:58] LABS: Bilirubin, Direct 0.1 mg/dL (<0.3); Bilirubin, Total 0.4 mg/dL (0.2-1.0); Cholesterol 112.0 mg/dL (< 200); HDL Cholesterol 45.0 mg/dL (40-59); Triglycerides 154.0 mg/dL (< 150)
[2025-02-21 21:26] LABS: Lipase 50.0 U/L (12-53)
[2025-02-21 21:29] LABS: INR 1.03 (0.9-1.15); Partial Thromboplastin Time 27.0 SEC (24.5-34.5); Prothrombin Time 10.9 sec (9.3-11.8)
[2025-02-21] MEDS ORDERED: ONDANSETRON HCL 4 MG/2 ML VIAL IV PRN (22:45)
[2025-02-21] MEDS ORDERED: KETOROLAC TROMETH 30 MG/ML 1ML VIAL IV PRN (22:45)
[2025-02-21] MEDS: CLINDAMYCIN 300MG IV 50 ML IV ONE (23:36)
--- NOTE | 2025-02-21 23:50 | DVH ---
CLINICAL INDICATION: Arthritis TECHNIQUE: XYXY L KNEE 2V XRAY Comparison: XY L FEMUR XRAY on DOS: 05/21/24, XY L KNEE 3V XRAY on DOS: 05/21/24, XY L TIB FIB XRAY on DOS: 05/21/24 FINDINGS/IMPRESSION: : There is no evidence of acute fracture or dislocation. Severe lateral and moderate patellofemoral compartment degenerative changes with joint space narrowin g, subchondral sclerosis, and osteophytes. More mild degenerative changes at the medial compartment. Soft tissues are unremarkable.
[2025-02-22 05:11] LABS: Hematocrit 41.8 % (36.0-46.0); Hemoglobin 14.2 g/dL (12.2-16.2); Mean Corpuscular Hemoglobin 32.3 pg (28.0-32.0); Mean Corpuscular Volume 95.0 fL (80.0-100.0); Nucleated Red Blood Cells % 0.1 %
[2025-02-22 05:33] LABS: Alanine Aminotransferase 23 U/L (7-40); Albumin 4.2 g/dL (3.2-4.8); Alkaline Phosphatase 78 U/L (46-116); Anion Gap 10 (5-15); BUN/Creatinine Ratio 26.5 (10.0-20.0); Calcium 9.2 mg/dL (8.7-10.4); Carbon Dioxide 23 mmol/L (20-31); Glucose 92 mg/dL (74-106); Potassium 4.8 mmol/L (3.5-5.1); Sodium 142 mmol/L (136-145); Total Protein 6.7 g/dL (5.7-8.2)
[2025-02-22 05:39] LABS: Bilirubin, Total 0.6 mg/dL (0.2-1.0)
[2025-02-22 05:46] LABS: Blood Urea Nitrogen 27 mg/dL (9-23); Chloride 109 mmol/L (98-107)
[2025-02-22] MEDS: CLINDAMYCIN 300MG IV 50 ML IV SCH (05:50)
[2025-02-22] MEDS: PANTOPRAZOLE 40 MG TAB PO SCH (05:50)
[2025-02-22] MEDS: GABAPENTIN 100 MG CAP PO SCH (06:00)
[2025-02-22 06:41] VITALS: BP 104/40; PULSE 47; RESP 18; TEMP 98.1; O2SAT 99
[2025-02-22 07:10] LABS: Urine Protein, UAD Negative (Negative)
[2025-02-22 07:28] LABS: Amphetamine Screen, Urine Neg (NEGATIVE); Barbiturate Scree,Urine Neg (NEGATIVE); Benzodiazephine Screen, Urine Neg (NEGATIVE); Cannabinoid Screen, Urine Neg (NEGATIVE); Cocaine Screen, Urine Neg (NEGATIVE); Opiate Scree,Urine Neg (NEGATIVE); Phencyclidine Screen, Urine Neg (NEGATIVE)
[2025-02-22 09:00] VITALS: BP 121/35; PULSE 53; RESP 16; TEMP 97.6; O2SAT 100
[2025-02-22] MEDS: SPIRONOLACTONE 25 MG TAB PO SCH (10:00)
[2025-02-22] MEDS: ENOXAPARIN SOD 100 MG/1 ML SYRINGE SC SCH (10:34)
[2025-02-22 13:00] VITALS: BP 103/46; PULSE 54; RESP 16; TEMP 97.6; O2SAT 98
--- NOTE | 2025-02-22 14:14 | DVHPN2 ---
Subjective sitting in chair/states knee pain is better today/ Changes from previous H/P or p: No Changes Objective Vitals Vital Signs Date Time Temp Pulse Resp B/P (MAP) Pulse Ox O2 Delivery O2 Flow Rate FiO2 02/22/25 13:00 97.6 54 16 103/46 (65) 98 97.6 02/21/25 18:57 Room Air* 0 21 Intake/Output Intake and Output 02/22/25 07:00 Intake Total 100 ml Balance 100 ml Intake IV Total 100 ml General Appearance: Alert, Oriented X3, Cooperative, No acute distress Lungs: Clear to auscultation Cardiovascular: Regular rate, Normal S1, Normal S2, No murmurs Abdomen: Normal bowel sounds, Soft, No tenderness, No hepatospenomegaly Musculoskeletal: Normal sensory function, Normal motor function Neuro: Normal speech, Strength at 5/5 X4 ext, Normal tone, Sensation intact Psych/Mental Status: Mental status NL Medications Current Medications Medications Dose Ordered Sig/Alfonso Route Start Time Stop Time Status Last Admin Dose Admin Acetaminophen/ Hydrocodone Bitart 1 tab Q4HP PRN PO 02/21/25 22:45 Clindamycin Phosphate 50 ml @ 50 mls/hr Q8HR IV 02/22/25 06:00 02/22/25 13:25 50 MLS/HR Atorvastatin Calcium 20 mg HS PO 02/22/25 22:00 Gabapentin 100 mg TID PO 02/22/25 06:00 02/22/25 13:25 100 MG Pantoprazole Sodium 40 mg DAILY@0600 PO 02/22/25 06:00 02/22/25 05:50 40 MG Laboratory Results Laboratory Tests 02/22/25 04:47 Chemistry Test 02/21/25 15:38 02/22/25 04:47 Albumin 4.3 g/dL (3.2-4.8) 4.2 g/dL (3.2-4.8) Calcium Level 9.4 mg/dL (8.7-10.4) 9.2 mg/dL (8.7-10.4) Magnesium Level 1.9 mg/dL (1.6-2.6) Phosphorus Level 4.2 mg/dL (2.4-5.1) Total Protein 6.9 g/dL (5.7-8.2) 6.7 g/dL (5.7-8.2) Coagulation Test 02/21/25 15:38 02/21/25 20:50 Prothrombin Time 10.9 sec (9.3-11.8) 10.9 sec (9.3-11.8) Prothrombin Time INR 1.03 (0.9-1.15) 1.03 (0.9-1.15) Activated Partial Thromboplast Time 27.0 SEC (24.5-34.5) Lipid panel Test 02/21/25 15:38 Cholesterol Level 112 mg/dL (< 200) HDL Cholesterol 45 mg/dL (40-59) Lipase 50 U/L (12-53) Triglycerides Level 154 mg/dL (< 150) H Cardiac Markers Test 02/21/25 15:38 B-Type Natriuretic Peptide 60.70 pg/mL (0-100) LFT Test 02/21/25 15:38 02/22/25 04:47 Alanine Aminotransferase (ALT) 23 U/L (7-40) 23 U/L (7-40) Alkaline Phosphatase 90 U/L (46-116) 78 U/L (46-116) Aspartate Amino Transferase (AST) 31 U/L (13-40) 26 U/L (13-40) Direct Bilirubin 0.1 mg/dL (<0.3) Total Bilirubin 0.4 mg/dL (0.2-1.0) 0.6 mg/dL (0.2-1.0) HgA1c, TSH Test 02/21/25 15:38 Hemoglobin A1c 5.5 % A1C (<5.7) Thyroid Stimulating Hormone (TSH) 2.84 uIU/mL (0.55-4.78) Urinalysis Test 02/21/25 00:14 Urine Color Yellow (Yellow) Urine Clarity Clear (Clear) Urine pH 5.0 (5.0-9.0) Urine Specific [place] 1.023 (1.001-1.035) Urine Protein Negative (Negative) Urine Ketones Negative (Negative) Urine Blood Negative /uL (Negative) Urine Nitrite Negative (Negative) Urine Bilirubin Negative (Negative) Urine Urobilinogen Normal mg/dL (Negative) Urine Leukocyte Esterase Negative /uL (Negative) Urine RBC 2 /hpf (0 - 4) Urine Microscopic WBC 4 /HPF (0-5) Urine Squamous Epithelial Cells Few /hpf (<5) Urine Bacteria Few /hpf (None Seen) H Urine Hyaline Casts Mod /lpf (0 - 2) Urine Mucus Few (None Seen) Urine Glucose Normal mg/dL (Normal) Assessment/Plan Assessment/Plan lymphedema- ? 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
[2025-02-22 17:00] VITALS: BP 134/47; PULSE 56; RESP 17; TEMP 97.6; O2SAT 98
[2025-02-22 21:00] VITALS: BP 136/64; PULSE 62; RESP 18; TEMP 97.5; O2SAT 90
[2025-02-22] MEDS: ATORVASTATIN 20 MG TAB PO SCH (21:53)
[2025-02-23] VITALS (8 sets, daily range): BP systolic 101–134; BP diastolic 40–71; PULSE 54–104; RESP 17–18; TEMP 97.4–97.9; O2SAT 90–99
[2025-02-23] MEDS: HYDROcodone-ACET 5/325MG TAB PO PRN (03:18)
--- NOTE | 2025-02-23 17:44 | DVHPN2 ---
Subjective states knee pain is better today/no complaints Changes from previous H/P or p: No Changes Objective Vitals Vital Signs Date Time Temp Pulse Resp B/P (MAP) Pulse Ox O2 Delivery O2 Flow Rate FiO2 02/23/25 13:00 97.9 63 17 121/71 (88) 95 97.9 02/22/25 20:00 Room Air* 0 21 Intake/Output Intake and Output 02/23/25 07:00 Intake Total 1025 ml Balance 1025 ml Intake Oral 925 ml IV Total 100 ml # Voids 7 General Appearance: Alert, Oriented X3, Cooperative, No acute distress Lungs: Clear to auscultation Cardiovascular: Regular rate, Normal S1, Normal S2, No murmurs Abdomen: Normal bowel sounds, Soft, No tenderness, No hepatospenomegaly Musculoskeletal: Normal sensory function, Normal motor function Extremities: Other (lymphedema changes and stasis dermatitis changes lower exremities) Neuro: Normal speech, Strength at 5/5 X4 ext, Normal tone, Sensation intact Psych/Mental Status: Mental status NL Medications Current Medications Medications Dose Ordered Sig/Alfonso Route Start Time Stop Time Status Last Admin Dose Admin Acetaminophen/ Hydrocodone Bitart 1 tab Q4HP PRN PO 02/21/25 22:45 02/23/25 12:22 1 TAB Clindamycin Phosphate 50 ml @ 50 mls/hr Q8HR IV 02/22/25 06:00 02/23/25 14:19 50 MLS/HR Atorvastatin Calcium 20 mg HS PO 02/22/25 22:00 02/22/25 21:53 20 MG Gabapentin 100 mg TID PO 02/22/25 06:00 02/23/25 14:19 100 MG Pantoprazole Sodium 40 mg DAILY@0600 PO 02/22/25 06:00 02/23/25 05:14 40 MG Laboratory Results Laboratory Tests 02/22/25 04:47 Urinalysis Test 02/21/25 00:14 Urine Color Yellow (Yellow) Urine Clarity Clear (Clear) Urine pH 5.0 (5.0-9.0) Urine Specific [place] 1.023 (1.001-1.035) Urine Protein Negative (Negative) Urine Ketones Negative (Negative) Urine Blood Negative /uL (Negative) Urine Nitrite Negative (Negative) Urine Bilirubin Negative (Negative) Urine Urobilinogen Normal mg/dL (Negative) Urine Leukocyte Esterase Negative /uL (Negative) Urine RBC 2 /hpf (0 - 4) Urine Microscopic WBC 4 /HPF (0-5) Urine Squamous Epithelial Cells Few /hpf (<5) Urine Bacteria Few /hpf (None Seen) H Urine Hyaline Casts Mod /lpf (0 - 2) Urine Mucus Few (None Seen) Urine Glucose Normal mg/dL (Normal) Microbiology Microbiology Date/Time Source Procedure Growth Status 02/21/25 15:55 Blood Blood Culture - Preliminary NO GROWTH AFTER 48 HOURS OF INCUBATION. Resulted Assessment/Plan Assessment/Plan lymphedema- ? 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
[2025-02-24 01:00] VITALS: BP 99/40; PULSE 52; RESP 17; TEMP 97.6; O2SAT 99
[2025-02-24 05:00] VITALS: BP 122/46; PULSE 56; RESP 19; TEMP 97.6; O2SAT 98
[2025-02-24 09:05] VITALS: BP 109/58; PULSE 55; RESP 19; TEMP 97.8; O2SAT 98
--- NOTE | 2025-02-24 09:21 | DVHPN2 ---
Subjective Still complaining of edema in her bilateral legs with a drainage from the right leg Changes from previous H/P or p: Changes Objective Vitals Vital Signs Date Time Temp Pulse Resp B/P (MAP) Pulse Ox O2 Delivery O2 Flow Rate FiO2 02/24/25 09:05 97.8 55 19 109/58 (75) 98 97.8 02/23/25 20:00 Room Air* 0 21 Intake/Output Intake and Output 02/24/25 07:00 Intake Total 1880 ml Balance 1880 ml Intake Oral 1830 ml IV Total 50 ml # Voids 14 General Appearance: Alert, Oriented X3, Cooperative, No acute distress Lungs: Clear to auscultation Cardiovascular: Regular rate, Normal S1, Normal S2, No murmurs Abdomen: Normal bowel sounds, Soft, No tenderness, No hepatospenomegaly Musculoskeletal: Normal sensory function, Normal motor function Extremities: Other (lymphedema changes and stasis dermatitis changes lower exremities) Neuro: Normal speech, Strength at 5/5 X4 ext, Normal tone, Sensation intact Psych/Mental Status: Mental status NL Medications Current Medications Medications Dose Ordered Sig/Alfonso Route Start Time Stop Time Status Last Admin Dose Admin Acetaminophen/ Hydrocodone Bitart 1 tab Q4HP PRN PO 02/21/25 22:45 02/24/25 02:18 1 TAB Clindamycin Phosphate 50 ml @ 50 mls/hr Q8HR IV 02/22/25 06:00 02/24/25 05:05 50 MLS/HR Atorvastatin Calcium 20 mg HS PO 02/22/25 22:00 02/23/25 21:41 20 MG Gabapentin 100 mg TID PO 02/22/25 06:00 02/24/25 05:06 100 MG Pantoprazole Sodium 40 mg DAILY@0600 PO 02/22/25 06:00 02/24/25 05:06 40 MG Laboratory Results Laboratory Tests 02/22/25 04:47 Urinalysis Test 02/21/25 00:14 Urine Color Yellow (Yellow) Urine Clarity Clear (Clear) Urine pH 5.0 (5.0-9.0) Urine Specific [place] 1.023 (1.001-1.035) Urine Protein Negative (Negative) Urine Ketones Negative (Negative) Urine Blood Negative /uL (Negative) Urine Nitrite Negative (Negative) Urine Bilirubin Negative (Negative) Urine Urobilinogen Normal mg/dL (Negative) Urine Leukocyte Esterase Negative /uL (Negative) Urine RBC 2 /hpf (0 - 4) Urine Microscopic WBC 4 /HPF (0-5) Urine Squamous Epithelial Cells Few /hpf (<5) Urine Bacteria Few /hpf (None Seen) H Urine Hyaline Casts Mod /lpf (0 - 2) Urine Mucus Few (None Seen) Urine Glucose Normal mg/dL (Normal) Microbiology Microbiology Date/Time Source Procedure Growth Status 02/21/25 15:55 Blood Blood Culture - Preliminary NO GROWTH AFTER 48 HOURS OF INCUBATION. Resulted Assessment/Plan Assessment/Plan Bilateral lower extremity cellulitis AFib Hypertension Chronic bilateral lower extremity lymphedema Dyslipidemia Plan IV antibiotics clindamycin Resume the home medications Wound care consult Pain control with [facility] Continue gabapentin home dose Lipitor home dose Lasix 20 mg daily Plan discussed with: Patient Date of Service: Feb 24, 2025 Billing Provider: RUSSELL CORONA MD Common Visit Codes: NOT BILLABLE RUSSELL CORONA MD Feb 24, 2025 09:21
[2025-02-24] MEDS: FUROSEMIDE 20 MG TAB PO SCH (11:14)
[2025-02-24 12:50] VITALS: BP 123/48; PULSE 59; RESP 16; TEMP 96.9; O2SAT 99
[2025-02-24 16:35] VITALS: BP 91/55; PULSE 59; RESP 17; TEMP 97.1; O2SAT 100
[2025-02-24 21:00] VITALS: BP 121/59; PULSE 60; RESP 17; TEMP 98.4; O2SAT 97
[2025-02-25 01:00] VITALS: BP 116/66; PULSE 56; RESP 17; TEMP 98.7; O2SAT 97
[2025-02-25 05:00] VITALS: BP 133/69; PULSE 54; RESP 18; TEMP 97.9; O2SAT 97
[2025-02-25 09:00] VITALS: BP 132/61; PULSE 58; RESP 18; TEMP 97.6; O2SAT 93
--- NOTE | 2025-02-25 10:10 | DVHPN2 ---
Subjective Doing better She is still having some pain in her legs bilaterally Changes from previous H/P or p: Changes Objective Vitals Vital Signs Date Time Temp Pulse Resp B/P (MAP) Pulse Ox O2 Delivery O2 Flow Rate FiO2 02/25/25 09:00 111/79 02/25/25 08:14 Room Air* 0 21 02/25/25 05:00 97.9 54 18 97 97.9 Intake/Output Intake and Output 02/25/25 07:00 Intake Total 750 ml Balance 750 ml Intake Oral 650 ml IV Total 100 ml # Voids 12 # Bowel Movements 1 General Appearance: Alert, Oriented X3, Cooperative, No acute distress Lungs: Clear to auscultation Cardiovascular: Regular rate, Normal S1, Normal S2, No murmurs Abdomen: Normal bowel sounds, Soft, No tenderness, No hepatospenomegaly Musculoskeletal: Normal sensory function, Normal motor function Extremities: Other (lymphedema changes and stasis dermatitis changes lower exremities) Neuro: Normal speech, Strength at 5/5 X4 ext, Normal tone, Sensation intact Psych/Mental Status: Mental status NL Medications Current Medications Medications Dose Ordered Sig/Alfonso Route Start Time Stop Time Status Last Admin Dose Admin Acetaminophen/ Hydrocodone Bitart 1 tab Q4HP PRN PO 02/21/25 22:45 02/25/25 09:00 1 TAB Clindamycin Phosphate 50 ml @ 50 mls/hr Q8HR IV 02/22/25 06:00 02/25/25 05:21 50 MLS/HR Atorvastatin Calcium 20 mg HS PO 02/22/25 22:00 02/24/25 21:20 20 MG Gabapentin 100 mg TID PO 02/22/25 06:00 02/24/25 13:52 100 MG Pantoprazole Sodium 40 mg DAILY@0600 PO 02/22/25 06:00 02/25/25 05:21 40 MG Furosemide 20 mg DAILY PO 02/24/25 10:00 02/25/25 09:00 20 MG Laboratory Results Laboratory Tests 02/22/25 04:47 Urinalysis Test 02/21/25 00:14 Urine Color Yellow (Yellow) Urine Clarity Clear (Clear) Urine pH 5.0 (5.0-9.0) Urine Specific [place] 1.023 (1.001-1.035) Urine Protein Negative (Negative) Urine Ketones Negative (Negative) Urine Blood Negative /uL (Negative) Urine Nitrite Negative (Negative) Urine Bilirubin Negative (Negative) Urine Urobilinogen Normal mg/dL (Negative) Urine Leukocyte Esterase Negative /uL (Negative) Urine RBC 2 /hpf (0 - 4) Urine Microscopic WBC 4 /HPF (0-5) Urine Squamous Epithelial Cells Few /hpf (<5) Urine Bacteria Few /hpf (None Seen) H Urine Hyaline Casts Mod /lpf (0 - 2) Urine Mucus Few (None Seen) Urine Glucose Normal mg/dL (Normal) Microbiology Microbiology Date/Time Source Procedure Growth Status 02/21/25 15:55 Blood Blood Culture - Preliminary NO GROWTH AFTER 72 HOURS OF INCUBATION. Resulted Assessment/Plan Assessment/Plan Bilateral lower extremity cellulitis AFib Hypertension Chronic bilateral lower extremity lymphedema Dyslipidemia Plan IV antibiotics clindamycin Resume the home medications Wound care consult Pain control with [facility] Continue gabapentin home dose Lipitor home dose Lasix 20 mg daily 02/25/2025: Continue the current management with IV antibiotics Wound care Order home health for wound care at home Discharge planning for tomorrow Plan discussed with: Patient My Orders Orders - RUSSELL CORONA MD Procedure Category Date Status Time * Master Fire Control Technician CONS 02/25/25 Transmitted Consult Date of Service: Feb 25, 2025 Billing Provider: RUSSELL CORONA MD Common Visit Codes: NOT BILLABLE RUSSELL CORONA MD Feb 25, 2025 10:10
[2025-02-25 13:00] VITALS: BP 144/80; PULSE 59; RESP 18; TEMP 97.6; O2SAT 97
[2025-02-25 17:00] VITALS: BP 139/72; PULSE 50; RESP 20; TEMP 97; O2SAT 96
[2025-02-26 01:00] VITALS: BP 124/65; PULSE 55; RESP 15; TEMP 97.8; O2SAT 96
[2025-02-26 05:00] VITALS: BP 115/60; PULSE 53; RESP 16; TEMP 97.4; O2SAT 95
[2025-02-26 09:00] VITALS: BP 136/80; PULSE 58; RESP 18; TEMP 98.3; O2SAT 96
[2025-02-26] MEDS ORDERED: CEPH500C PO (09:49)
--- NOTE | 2025-02-26 09:52 | DVHDS2 ---
Discharge Summary Date of Admission Feb 21, 2025 at 22:33 Date of Discharge: Feb 26, 2025 Labs/Diagnostic Data: Laboratory Results Test 02/22/25 04:47 02/21/25 20:50 02/21/25 15:55 02/21/25 15:38 White Blood Count 5.9 10^3/uL (4.4-10.8) Red Blood Count 4.40 10^6/uL (4.0-5.20) Hemoglobin 14.2 g/dL (12.2-16.2) Hematocrit 41.8 % (36.0-46.0) Mean Corpuscular Volume 95.0 fL (80.0-100.0) Mean Corpuscular Hemoglobin 32.3 pg (28.0-32.0) Mean Corpuscular Hemoglobin Concent 34.0 g/dL (32.0-36.0) Red Cell Distribution Width 15.7 % (11.8-14.3) Platelet Count 188 10^3/uL (140-450) Mean Platelet Volume 11.3 fL (6.9-10.8) Neutrophils (%) (Auto) 55.4 % (37.0-80.0) Lymphocytes (%) (Auto) 32.0 % (10.0-50.0) Monocytes (%) (Auto) 11.0 % (0.0-12.0) Eosinophils (%) (Auto) 1.4 % (0.0-7.0) Basophils (%) (Auto) 0.2 % (0.0-2.0) Neutrophils # (Auto) 3.3 10 ^3/uL (1.6-8.6) Lymphocytes # (Auto) 1.9 10 ^3/uL (0.4-5.4) Monocytes # (Auto) 0.6 10 ^3/uL (0-1.3) Eosinophils # (Auto) 0.1 10 ^3/uL (0-0.8) Basophils # (Auto) 0 10 ^3/uL (0-0.2) Nucleated Red Blood Cells 0.1 % Sodium Level 142 mmol/L (136-145) Potassium Level 4.8 mmol/L (3.5-5.1) Chloride Level 109 mmol/L (98-107) Carbon Dioxide Level 23 mmol/L (20-31) Anion Gap 10 (5-15) Blood Urea Nitrogen 27 mg/dL (9-23) Creatinine 1.02 mg/dL (0.550-1.02) Glomerular Filtration Rate Calc 59 mL/min (>90) BUN/Creatinine Ratio 26.5 (10.0-20.0) Serum Glucose 92 mg/dL (74-106) Calcium Level 9.2 mg/dL (8.7-10.4) Total Bilirubin 0.6 mg/dL (0.2-1.0) Aspartate Amino Transferase (AST) 26 U/L (13-40) Alanine Aminotransferase (ALT) 23 U/L (7-40) Alkaline Phosphatase 78 U/L (46-116) Total Protein 6.7 g/dL (5.7-8.2) Albumin 4.2 g/dL (3.2-4.8) Prothrombin Time 10.9 sec (9.3-11.8) Prothrombin Time INR 1.03 (0.9-1.15) Activated Partial Thromboplast Time 27.0 SEC (24.5-34.5) Lactic Acid Level 1.3 mmol/L (0.4-2.0) Hemoglobin A1c 5.5 % A1C (<5.7) Phosphorus Level 4.2 mg/dL (2.4-5.1) Magnesium Level 1.9 mg/dL (1.6-2.6) Direct Bilirubin 0.1 mg/dL (<0.3) C-Reactive Protein High Sensitivity 0.11 mg/dL (<1.0) B-Type Natriuretic Peptide 60.70 pg/mL (0-100) Triglycerides Level 154 mg/dL (< 150) Cholesterol Level 112 mg/dL (< 200) LDL Cholesterol 45 mg/dL (< 100) HDL Cholesterol 45 mg/dL (40-59) Lipase 50 U/L (12-53) Vitamin B12 Level 258 pg/mL (211-911) Vitamin D 25-Hydroxy 32.9 ng/mL (30.0-100) Thyroid Stimulating Hormone (TSH) 2.84 uIU/mL (0.55-4.78) Test 02/21/25 00:14 Urine Color Yellow (Yellow) Urine Clarity Clear (Clear) Urine pH 5.0 (5.0-9.0) Urine Specific [place] 1.023 (1.001-1.035) Urine Protein Negative (Negative) Urine Ketones Negative (Negative) Urine Blood Negative /uL (Negative) Urine Nitrite Negative (Negative) Urine Bilirubin Negative (Negative) Urine Urobilinogen Normal mg/dL (Negative) Urine Leukocyte Esterase Negative /uL (Negative) Urine RBC 2 /hpf (0 - 4) Urine Microscopic WBC 4 /HPF (0-5) Urine Squamous Epithelial Cells Few /hpf (<5) Urine Bacteria Few /hpf (None Seen) Urine Hyaline Casts Mod /lpf (0 - 2) Urine Mucus Few (None Seen) Urine Glucose Normal mg/dL (Normal) Urine Opiates Screen Neg (NEGATIVE) Urine Fentanyl Screen Neg (NEGATIVE) Urine Barbiturates Screen Neg (NEGATIVE) Urine Phencyclidine Screen Neg (NEGATIVE) Urine Amphetamines Screen Neg (NEGATIVE) Urine Benzodiazepines Screen Neg (NEGATIVE) Urine Cocaine Screen Neg (NEGATIVE) Urine Cannabinoids Screen Neg (NEGATIVE) Other Laboratory Tests 02/22/25 04:47 Brief Hx & Hospital Course: Diagnoses: Bilateral lower extremity cellulitis AFib Hypertension Chronic bilateral lower extremity lymphedema Dyslipidemia 69-year-old female who was admitted for increased swelling and pain in her bilateral legs below the knees She has chronic lymphedema He was given IV antibiotics Wound Care seeing the patient He is doing better now and she can be discharged home to continue with cephalexin for 10 days Order home health for wound care was done Follow up with her primary care physician in 1 week Condition at Discharge: Stable Final Diagnosis/Problems List Bilateral lower extremity cellulitis AFib Hypertension Chronic bilateral lower extremity lymphedema Dyslipidemia Discharge Disposition: Home SNF Discharge Will this Physician continue t: No Discharge Instruct/Medications Diet: Cardiac 2g Na,low cholest Activity: Light activity Follow Up/Referral: PCP as soon as possible Medications: Cephalexin 500 mg q.8 hours times 10 days Resume the home meds Scheduled Atorvastatin Calcium (Atorvastatin Calcium), 20 MG PO HS Cephalexin Monohydrate (Cephalexin), 1 CAP PO TID Doxycycline Monohydrate (Doxycycline Monohydrate), 1 CAP PO BID Doxycycline Monohydrate (Doxycycline Monohydrate), 1 CAP PO BID Furosemide (Furosemide), 1 TAB PO DAILY Gabapentin (Gabapentin), 100 MG PO TID, (Reported) Olmesartan Medoxomil (Olmesartan Medoxomil), 1 TAB PO DAILY, (Reported) Spironolactone (Spironolactone), 1 TAB PO DAILY Spironolactone (Aldactone), 1 TAB PO DAILY Tramadol HCl (Tramadol HCl), 50 MG PO BID Tramadol Hcl (Tramadol Hcl), 1-2 TAB PO BID PRN, (Reported) Discharge Statement: "Patient was advised to return to the ER or call 911 if any headaches, dizziness, shortness of breath, chest pain, abdominal pain, bleeding, fevers, or worsening of medical condition. Patient was counseled about treatment plan, medications, possible side effects, patientverbalized understanding. All questions were answered to the best of my ability. This discharge took greater then 30 minutes in planning, reviewing documentation, counseling the patient, and discussing with other team members." ASSESSMENT ASSESSMENT Assessment Bilateral lower extremity cellulitis AFib Hypertension Chronic bilateral lower extremity lymphedema Dyslipidemia Date of Service: Feb 26, 2025 Billing Provider: RUSSELL CORONA MD Common Visit Codes: NOT BILLABLE RUSSELL CORONA MD Feb 26, 2025 09:52
[2025-02-26 13:13] VITALS: BP 122/88; PULSE 58; RESP 20; TEMP 98.3; O2SAT 98
[2025-02-26 17:11] VITALS: BP 137/84; PULSE 62; RESP 20; TEMP 98.8; O2SAT 100
== END 2025-02-26 19:50 | disposition home or self-care (01) | DRG 603 ==
LOC: ER 14:28 → EDUNIT# 14:28 → EDBD 14:28 → OVERFLOW 22:33 → WEST WING 02-22 18:41
PROVIDERS: ADMIT Internal Medicine Geriatric Medicine; ATTEND Internal Medicine Geriatric Medicine
DX: L03.116 Cellulitis of left lower limb (principal); L03.115 Cellulitis of right lower limb; J45.909 Unspecified asthma, uncomplicated; I89.0 Lymphedema, not elsewhere classified; I48.0 Paroxysmal atrial fibrillation; E66.9 Obesity, unspecified; E78.5 Hyperlipidemia, unspecified; Z68.31 Body mass index [BMI] 31.0-31.9, adult; I11.0 Hypertensive heart disease with heart failure; I50.9 Heart failure, unspecified; I25.10 Atherosclerotic heart disease of native coronary artery without angina pectoris; Z79.899 Other long term (current) drug therapy; Z88.2 Allergy status to sulfonamides; Z88.8 Allergy status to other drugs, medicaments and biological substances
CPT/HCPCS: 36415; 71045; 73560; 80048; 80053; 80061; 80076; 80307; 81001; 82306; 82607; 83036; 83605; 83690; 83735; 83880; 84100; 84443; 85025; 85610; 85730; 86141; 87040; 93970; 96365; 96375; G0378; J3490

== ENCOUNTER 2025-03-15 10:27 | Inpatient (IN) | payer MEDICARE, OTHER ==
[~2025-03-15] VITALS: Ht 167.6 cm; Wt 92.5 kg
[~2025-03-15 10:27] MED LIST changes: +CEPH500C PO
[2025-03-15 11:10] VITALS: PULSE 60; RESP 12; O2SAT 98
--- NOTE | 2025-03-15 13:37 | DVH ---
CLINICAL INFORMATION: Weakness. TECHNIQUE: Single AP portable chest radiograph was obtained. COMPARISON: XY CHEST XRAY 1 VIEW on DOS: 02/21/25, XY CHEST XRAY 1 VIEW on DOS: 12/09/24, XY CHEST PORTABLE on DOS: 11/29/24 FINDINGS: Lungs: Atelectasis in the lung bases, right greater than left. No focal consolidation. No pneumothorax or pleural effusion. Cardiac: Heart size is within normal limits. Pulmonary vasculature: Unremarkable. Mediastinum/edwardo: Unremarkable. Bones: No acute osseous abnormality identified. Other: No other significant findings. IMPRESSION: Atelectasis in the lung bases, right greater than left. No focal consolidation or other acute radiographic abnormality identified in the chest.
[2025-03-15 13:53] LABS: Hematocrit 40.0 % (36.0-46.0); Hemoglobin 13.4 g/dL (12.2-16.2); Mean Corpuscular Hemoglobin 32.1 pg (28.0-32.0); Mean Corpuscular Volume 96.0 fL (80.0-100.0); Nucleated Red Blood Cells % 0.2 %
[2025-03-15 13:54] LABS: Potassium 4.3 mmol/L (3.5-5.1); Sodium 142 mmol/L (136-145)
[2025-03-15 13:55] LABS: Anion Gap 7 (5-15); Carbon Dioxide 26 mmol/L (20-31)
[2025-03-15 13:56] LABS: Calcium 9.8 mg/dL (8.7-10.4); Chloride 109 mmol/L (98-107)
[2025-03-15 14:01] LABS: BUN/Creatinine Ratio 25.4 (10.0-20.0); Blood Urea Nitrogen 17 mg/dL (9-23); Glucose 84 mg/dL (74-106)
[2025-03-15 14:28] LABS: Urine Protein, UAD Negative (Negative)
[2025-03-15] MEDS: VANCOMYCIN 1GM/250ML KIT 250 ML IV ONE ×2 (14:33→19:00)
[2025-03-15] MEDS: ceFAZolin 2 GM/D5W50ml 50 ML IV ONE (15:48)
--- NOTE | 2025-03-15 15:48 | ED.PDOC ---
Musculoskeletal HPI Comments 69-year-old female is brought in by ambulance for chief complaint of bilateral lower extremity redness, swelling, and pain. Significant history for AFib, asthma, CAD, CHF, HLD, HTN, and chronic bilateral lower extremity lymphedema. Patient reports on return to the ED for continuing cellulitic infection to her legs following last visit and admission. She denies any chest pain, shortness breath, or further acute symptoms. Chief Complaint: Lower Extremity Time Seen by MD: 13:00 Primary Care Provider: Luis Felipe Avilez Reviewed Notes: Nurses Notes, Server Service Assistant Notes, Medications, Allergies Allergies: Coded Allergies: Sulfa Antibiotics (Verified Allergy, Unknown, 11/25/23) Amlodipine (Unverified Adverse Reaction, Unknown, 07/10/24) Peripheral edema Uncoded Allergies: Gauze (Allergy, Intermediate, 11/29/24) Per patient, causes skin to darken red. Informed to refuse gauze. Home Meds Active Scripts Cephalexin Monohydrate (Cephalexin) 500 Mg Cap, 1 CAP PO TID, #30 CAP Prov:RUSSELL CORONA MD 02/26/25 Tramadol HCl (Tramadol HCl) 50 Mg Tab, 50 MG PO BID, #20 TAB Prov:LORI FERNANDEZ 01/10/25 Doxycycline Monohydrate (Doxycycline Monohydrate) 100 Mg Cap, 1 CAP PO BID, #14 CAP Prov:RUSSELL CORONA MD 12/16/24 Spironolactone (Aldactone) 25 Mg Tab, 1 TAB PO DAILY, #30 TAB 5 Refills Prov:RUSSELL CORONA MD 12/02/24 Doxycycline Monohydrate (Doxycycline Monohydrate) 100 Mg Cap, 1 CAP PO BID, #14 CAP Prov:RUSSELL CORONA MD 12/02/24 Furosemide (Furosemide) 40 Mg Tab, 1 TAB PO DAILY, #90 TAB 1 Refill Prov:AWA MILTON MD 11/19/24 Atorvastatin Calcium (ATORVASTATIN CALCIUM) 20 Mg Tab, 20 MG PO HS, #60 TAB Prov:AWA MILTON MD 11/19/24 Spironolactone (Spironolactone) 25 Mg Tab, 1 TAB PO DAILY, #60 TAB Prov:AWA MILTON MD 11/19/24 Reported Medications Olmesartan Medoxomil (Olmesartan Medoxomil) 20 Mg Tab, 1 TAB PO DAILY 11/29/24 Gabapentin (Gabapentin) 100 Mg Cap, 100 MG PO TID 11/29/24 Tramadol Hcl (Tramadol Hcl) 50 Mg Tab, 1-2 TAB PO BID PRN for 30 Days, #120 08/01/24 Information Source: Patient, Emergency Med Personnel Mode of Arrival: EMS Location: Bilateral Extremity Location: Leg Past Medical History PAST MEDICAL HISTORY: AFIB, Asthma, CAD, CHF, High Lipids, HTN Past Medical History (Other): Chronic bilateral lower extremity lymphedema Surgical History: Denies all surgeries CHIEF CARDIOPULMONARY TECHNOLOGIST History: No Pertinent CHIEF CARDIOPULMONARY TECHNOLOGIST History Family History Family History: Reviewed,noncontributory to illness Social History Smoker: Non-Smoker Alcohol: Denies ETOH Use Drugs: Denies Drug Use Lives In: Home All Other Systems: Reviewed and Negative (Comprehensive review of systems are negative unless otherwise stated in HPI) Physical Exam General Appearance: No Apparent Distress, Normal HEENT: Normal ENT Inspection, Pharynx Normal, TMs Normal Neck: Full Range of Motion, Non-Tender, Normal, Normal Inspection Respiratory: Chest Non-Tender, Lungs Clear, No Accessory Muscle Use, No Respiratory Distress, Normal Breath Sounds Cardiovascular: No Edema, No JVD, No Murmur, No Gallop, Normal Peripheral Pulses, Regular Rate/Rhythm Breast Exam: Deferred Gastrointestinal: No Organomegaly, Non Tender, No Pulsatile Mass, Normal Bowel Sounds, Soft Genitalia: Deferred Pelvic: Deferred Rectal: Deferred Extremities: Leg edema (Bilateral), No calf tenderness, Normal capillary refill, Normal range of motion, Non-tender, No pedal edema, Tender (BLE), Other (BLE edema, erythema, and warmth) Musculoskeletal : Apperance: Normal Neurologic: Alert, hot wire glass tube cutter II-XII nml as Tested, No Motor Deficits, Normal Affect, Normal Mood, No Sensory Deficits Cerebellar Function: Normal Reflexes: Normal Skin: Dry, Normal Color, Warm, Other (Erythema and warmth to BLE) Lymphatic: No Adenopathy Was a procedure done? Was a procedure done?: No Differential Diagnosis EXT Differential Diagnosis: Cellulitis, Septic, Neurovascular injury X-Ray, Labs, Meds, VS Vital Signs Date Time Temp Pulse Resp B/P (MAP) Pulse Ox O2 Delivery O2 Flow Rate FiO2 03/15/25 17:06 57 15 112/41 11/8/25 16:19 61 16 136/46 03/15/25 16:00 97.6 61 16 136/46 (76) 94 97.6 03/15/25 11:12 98.6 60 18 113/70 99 98.6 03/15/25 11:10 60 12 98 Room Air* 0 21 03/15/25 11:10 97.5 60 12 140/43 (75) 98 97.5 Lab Test 03/15/25 13:24 03/15/25 11:30 Range/Units White Blood Count 6.7 4.4-10.8 10^3/uL Red Blood Count 4.16 4.0-5.20 10^6/uL Hemoglobin 13.4 12.2-16.2 g/dL Hematocrit 40.0 36.0-46.0 % Mean Corpuscular Volume 96.0 80.0-100.0 fL Mean Corpuscular Hemoglobin 32.1 H 28.0-32.0 pg Mean Corpuscular Hemoglobin Concent 33.5 32.0-36.0 g/dL Red Cell Distribution Width 14.9 H 11.8-14.3 % Platelet Count 194 140-450 10^3/uL Mean Platelet Volume 11.2 H 6.9-10.8 fL Neutrophils (%) (Auto) 55.0 37.0-80.0 % Lymphocytes (%) (Auto) 30.6 10.0-50.0 % Monocytes (%) (Auto) 12.7 H 0.0-12.0 % Eosinophils (%) (Auto) 1.5 0.0-7.0 % Basophils (%) (Auto) 0.2 0.0-2.0 % Neutrophils # (Auto) 3.7 1.6-8.6 10 ^3/uL Lymphocytes # (Auto) 2.0 0.4-5.4 10 ^3/uL Monocytes # (Auto) 0.9 0-1.3 10 ^3/uL Eosinophils # (Auto) 0.1 0-0.8 10 ^3/uL Basophils # (Auto) 0 0-0.2 10 ^3/uL Nucleated Red Blood Cells 0.2 % Sodium Level 142 136-145 mmol/L Potassium Level 4.3 3.5-5.1 mmol/L Chloride Level 109 H 98-107 mmol/L Carbon Dioxide Level 26 20-31 mmol/L Anion Gap 7 5-15 Blood Urea Nitrogen 17 9-23 mg/dL Creatinine 0.67 0.550-1.02 mg/dL Glomerular Filtration Rate Calc 93 >90 mL/min BUN/Creatinine Ratio 25.4 H 10.0-20.0 Serum Glucose 84 74-106 mg/dL Lactic Acid Level 1.6 0.4-2.0 mmol/L Calcium Level 9.8 8.7-10.4 mg/dL Troponin I High Sensitivity 10 </=34 ng/L B-Type Natriuretic Peptide 115.57 0-100 pg/mL Urine Color Colorless Yellow Urine Clarity Clear Clear Urine pH 5.0 5.0-9.0 Urine Specific [place] 1.010 1.001-1.035 Urine Protein Negative Negative Urine Ketones Negative Negative Urine Blood Negative Negative /uL Urine Nitrite Negative Negative Urine Bilirubin Negative Negative Urine Urobilinogen Normal Negative mg/dL Urine Leukocyte Esterase Negative Negative /uL Urine RBC <1 0 - 4 /hpf Urine Microscopic WBC < 1 0-5 /HPF Urine Squamous Epithelial Cells Few <5 /hpf Urine Bacteria None seen None Seen /hpf Urine Glucose Normal Normal mg/dL Current Medications Medications (Trade) Dose Ordered Sig/Alfonso Route Start Time Stop Time Status Last Admin Cefazolin Sodium/ Dextrose 50 ml @ 50 mls/hr ONCE ONCE IV 03/15/25 13:00 03/15/25 13:59 DC 03/15/25 15:48 Vancomycin HCl 250 ml @ 250 mls/hr ONCE ONCE IV 03/15/25 13:00 03/15/25 13:59 DC 03/15/25 14:33 Morphine Sulfate 4 mg ONCE ONCE IV 03/15/25 16:15 03/15/25 16:16 DC 03/15/25 16:19 Ondansetron HCl (Zofran) 4 mg ONCE ONCE IV 03/15/25 16:15 03/15/25 16:16 DC 03/15/25 16:19 Ketorolac Tromethamine (Toradol Injection) 15 mg ONCE ONCE IV 03/15/25 18:00 03/15/25 18:40 DC 03/15/25 18:00 Vancomycin HCl 250 ml @ 250 mls/hr ONCE ONCE IV 03/15/25 19:00 03/15/25 19:59 DC 03/15/25 19:00 [facility] [id number] [facility] [address] Ph: [phone] DIAGNOSTIC IMAGING Diagnostic Imaging Report : [id number] Signed PATIENT: NASIR ROSARIO ACCT: [id number] UNIT: [id number] : 1955 LOC: ER ROOM / BED: / AGE / SEX: 69 / F ADM STATUS: REG ER SERVICE 1251 ORDERING PHYSICIAN: ALEJANDRA CUELLO MD PROCEDURE(s): CXRP - CHEST PORTABLE REASON: weakness ORDER NUMBER(s): [id number], ACCESSION NUMBER(s): [id number] CLINICAL INFORMATION: Weakness. TECHNIQUE: Single AP portable chest radiograph was obtained. COMPARISON: XY CHEST XRAY 1 VIEW on DOS: 02/21/25, XY CHEST XRAY 1 VIEW on DOS: 12/09/24, XY CHEST PORTABLE on DOS: 11/29/24 FINDINGS: Lungs: Atelectasis in the lung bases, right greater than left. No focal consolidation. No pneumothorax or pleural effusion. Cardiac: Heart size is within normal limits. Pulmonary vasculature: Unremarkable. Mediastinum/edwardo: Unremarkable. Bones: No acute osseous abnormality identified. Other: No other significant findings. IMPRESSION: Atelectasis in the lung bases, right greater than left. No focal consolidation or other acute radiographic abnormality identified in the chest. ATED BY: FELIPE BROWN DO DICTATED DATE/TIME: 03/15/251334 SIGNED BY: FELIPE BROWN DO SIGNED DATE/TIME: 03/15/251334 CC: Time of 1ST Reevaluation: 13:30 Reevaluation 1ST: Unchanged Patient Education/Counseling: Diagnosis, Treatment, Other (Need for admission) Family Education/Counseling: No Family Present Additional Information Additional historians: EMS personnel Previous medical visits reviewed: February 21, 2025 in counter for cellulitis Additional imaging and studies ordered and reviewed: EKG, chest x-ray Labs ordered and reviewed: Troponin, blood cultures, lactic acid reflux, UA, CBC, BMP, BNP Sepsis Sepsis Reasesment Focused Exam Orders: Laboratory Tests 03/15/25 13:24: Lactic Acid Level 1.6 Departure 1 Departure Time of Disposition: 21:11 (Patient with impressive cellulitis of the lower extremity. We will admit patient for further workup) Impression: Primary Impression: Cellulitis of both lower extremities Disposition: ADMITTED INPATIENT Admit to: Tele Condition: Guarded Critical Care Note Critical Care Time?: No Stability Stability form required: No Heart Score Heart Score: Heart Score Response (Comments) Value History N/A 0 EKG N/A 0 Age N/A 0 Risk Factors N/A 0 Troponin N/A 0 Total 0 I personally scribed for ALEJANDRA CUELLO MD ([email or web address]) on 03/15/25 at 15:48. Electronically submitted by Carlo Zarco [email or web address]). ALEJANDRA CUELLO MD Mar 15, 2025 15:48
[2025-03-15] MEDS: ONDANSETRON HCL 4 MG/2 ML VIAL IV ONE (16:19)
[2025-03-15] MEDS: MORPHINE SULFATE 4 MG/ML SYR/VIAL IV ONE (16:19)
[2025-03-15] MEDS ORDERED: VANCOMYCIN PER PHARMACY 0 MG IV SCH (18:00)
[2025-03-15] MEDS ORDERED: ONDANSETRON HCL 4 MG/2 ML VIAL IV PRN (18:00)
[2025-03-15] MEDS: KETOROLAC TROMETH 30 MG/ML 1ML VIAL IV ONE (18:00)
[2025-03-15] MEDS ORDERED: ACETAMINOPHEN 325 MG TAB PO PRN (18:00)
[2025-03-15 19:25] VITALS: PULSE 82; RESP 13; O2SAT 98
--- NOTE | 2025-03-15 19:56 | DVHHP2 ---
History of Present Illness Reason for Visit: Bilateral lower extremity cellulitis History of Present Illness The patient is a 69-year-old female with multiple past medical history including lymphedema, AFib, asthma, Coronary artery disease, and hypertension who presented to [facility] ED with complaint of bilateral lower extremity swelling right worse than left, associated with redness and pain, getting worse that prompted this visit. Patient reports on return to the ED for continuing cellulitic infection to her legs following last visit and admission. Patient was seen and evaluated in the ED, laboratory data shows WBC 6.7, platelets 194, sodium 142, potassium 4.3, BUN 17, creatinine 0.67, GFR 93, glucose 84, calcium 9.8, lactic acid 1.6, BNP 115.57, troponin 10, blood pressure 136/46, heart rate 62, temperature 97.6 F, O2 saturation 99% on room air. Chest x-ray revealing atelectasis in the lung bases, right greater than left, no focal consolidation or other acute radiographic abnormality identified in the chest. Patient was started on IV antibiotic regimen vancomycin, please see medication orders section in the computer. On my assessment, patient denies chest pain, no headache, dizziness, diaphoresis, shortness of breaths, no diarrhea, nausea, vomiting, fever, chills. Patient was admitted for further evaluation and medical management. Past Medical History AFIB, Asthma, CAD, CHF, High Lipids, HTN, Chronic bilateral lower extremity lymphedema Past Surgical History Denies all surgeries Family History Reviewed, noncontributory to the management of this case. Past Social History The patient lives at home, denies smoking, alcohol or illicit drugs abuse. Review of Systems Constitutional: Yes: Weakness; No: Fever, Chills, Sweats, Malaise, Other Eyes: No: Pain, Vision change, Conjunctivae inflammation, Eyelid inflammation, Other, Redness ENT: No: Ear pain, Ear discharge, Nose pain, Nose discharge, Nose congestion, Mouth pain, Mouth swelling, Throat pain, Throat swelling, Other Respiratory: No: Cough, Dry, Shortness of breath, SOB with excertion, Wheezing, Hemoptysis, Pleuritic Pain, Sputum, Wheezing, Other Cardiovascular: No: Chest Pain, Palpitations, Orthopnea, Paroxysmal Noc. Dyspnea, Edema, Lt Headedness, Other Gastrointestinal: No: Nausea, Vomiting, Abdominal Pain, Diarrhea, Constipation, Melena, Hematochezia, Other Genitourinary: No Dysuria, No Frequency, No Incontinence, No Hematuria, No Retention, No Other Musculoskeletal: No: other, neck pain, shoulder pain, arm pain, back pain, hand pain, leg pain, foot pain Skin: Rash, Jaundice, Bruising, Other (Right lower extremity open wound); No: Lesions Neurological: No: Weakness, Numbness, Incoordination, Change in speech, Confusion, Seizures, Other Allergies: Coded Allergies: Sulfa Antibiotics (Verified Allergy, Unknown, 11/25/23) Amlodipine (Unverified Adverse Reaction, Unknown, 07/10/24) Peripheral edema Uncoded Allergies: Gauze (Allergy, Intermediate, 11/29/24) Per patient, causes skin to darken red. Informed to refuse gauze. Medications Current Medications Medications Dose Ordered Sig/Alfonso Route Start Time Stop Time Status Last Admin Dose Admin Vancomycin HCl 0 ml @ 0 mls/hr PER PHARMACY IV 03/15/25 18:00 UNV Atorvastatin Calcium 20 mg HS PO 03/15/25 22:00 Pantoprazole Sodium 40 mg DAILY IV 03/16/25 10:00 Sodium Chloride 10 ml Q8HR IV 03/15/25 22:00 Acetaminophen/ Hydrocodone Bitart 1 tab Q4HP PRN PO 03/15/25 18:00 Ondansetron HCl 4 mg Q4HP PRN IV 03/15/25 18:00 Docusate Sodium 100 mg BIDPRN PRN PO 03/15/25 18:00 Enoxaparin Sodium 40 mg DAILY SC 03/16/25 10:00 Acetaminophen 650 mg Q6HP PRN PO 03/15/25 18:00 Exam Vital Signs Vital Signs Date Time Temp Pulse Resp B/P (MAP) Pulse Ox O2 Delivery O2 Flow Rate FiO2 03/15/25 17:06 57 15 112/41 03/15/25 16:00 97.6 94 97.6 03/15/25 11:10 Room Air* 0 21 General Appearance: Alert, Oriented X3, Cooperative, No acute distress HEENT: Atraumatic, PERRLA, EOMI, Mucous membr. moist/pink Respiratory: Clear to auscultation, Normal air movement Cardiovascular: Regular rate, Normal S1, Normal S2, No murmurs Abdominal: Normal bowel sounds, Soft, No tenderness, No hepatospenomegaly, No masses Extremities: No clubbing, No cyanosis, No edema, Normal pulses, Other (Lower extremity swelling/tenderness) Skin: No rashes Neuro: Normal speech, Normal tone, Sensation intact, Cranial nerves 3-12 NL, Reflexes 2+, Other (Generalized weakness) Psych/Mental Status: Mental status NL, Mood NL Labs/Xrays Labs Test 03/15/25 13:24 03/15/25 11:30 Range/Units White Blood Count 6.7 4.4-10.8 10^3/uL Red Blood Count 4.16 4.0-5.20 10^6/uL Hemoglobin 13.4 12.2-16.2 g/dL Hematocrit 40.0 36.0-46.0 % Mean Corpuscular Volume 96.0 80.0-100.0 fL Mean Corpuscular Hemoglobin 32.1 H 28.0-32.0 pg Mean Corpuscular Hemoglobin Concent 33.5 32.0-36.0 g/dL Red Cell Distribution Width 14.9 H 11.8-14.3 % Platelet Count 194 140-450 10^3/uL Mean Platelet Volume 11.2 H 6.9-10.8 fL Neutrophils (%) (Auto) 55.0 37.0-80.0 % Lymphocytes (%) (Auto) 30.6 10.0-50.0 % Monocytes (%) (Auto) 12.7 H 0.0-12.0 % Eosinophils (%) (Auto) 1.5 0.0-7.0 % Basophils (%) (Auto) 0.2 0.0-2.0 % Neutrophils # (Auto) 3.7 1.6-8.6 10 ^3/uL Lymphocytes # (Auto) 2.0 0.4-5.4 10 ^3/uL Monocytes # (Auto) 0.9 0-1.3 10 ^3/uL Eosinophils # (Auto) 0.1 0-0.8 10 ^3/uL Basophils # (Auto) 0 0-0.2 10 ^3/uL Nucleated Red Blood Cells 0.2 % Sodium Level 142 136-145 mmol/L Potassium Level 4.3 3.5-5.1 mmol/L Chloride Level 109 H 98-107 mmol/L Carbon Dioxide Level 26 20-31 mmol/L Anion Gap 7 5-15 Blood Urea Nitrogen 17 9-23 mg/dL Creatinine 0.67 0.550-1.02 mg/dL Glomerular Filtration Rate Calc 93 >90 mL/min BUN/Creatinine Ratio 25.4 H 10.0-20.0 Serum Glucose 84 74-106 mg/dL Lactic Acid Level 1.6 0.4-2.0 mmol/L Calcium Level 9.8 8.7-10.4 mg/dL Troponin I High Sensitivity 10 </=34 ng/L B-Type Natriuretic Peptide 115.57 0-100 pg/mL Urine Color Colorless Yellow Urine Clarity Clear Clear Urine pH 5.0 5.0-9.0 Urine Specific [place] 1.010 1.001-1.035 Urine Protein Negative Negative Urine Ketones Negative Negative Urine Blood Negative Negative /uL Urine Nitrite Negative Negative Urine Bilirubin Negative Negative Urine Urobilinogen Normal Negative mg/dL Urine Leukocyte Esterase Negative Negative /uL Urine RBC <1 0 - 4 /hpf Urine Microscopic WBC < 1 0-5 /HPF Urine Squamous Epithelial Cells Few <5 /hpf Urine Bacteria None seen None Seen /hpf Urine Glucose Normal Normal mg/dL PATIENT: NASIR ROSARIO RACCT: [id number] UNIT: [id number] : 1955 LOC: ER ROOM / BED: / AGE / SEX: 69 / F ADM STATUS: REG ER SERVICE 1251 ORDERING PHYSICIAN: ALEJANDRA CUELLO MD PROCEDURE(s): CXRP - CHEST PORTABLE REASON: weakness ORDER NUMBER(s): [id number], ACCESSION NUMBER(s): [id number] CLINICAL INFORMATION: Weakness. TECHNIQUE: Single AP portable chest radiograph was obtained. COMPARISON: XY CHEST XRAY 1 VIEW on DOS: 02/21/25, XY CHEST XRAY 1 VIEW on DOS: 12/09/24, XY CHEST PORTABLE on DOS: 11/29/24 FINDINGS: Lungs: Atelectasis in the lung bases, right greater than left. No focal consolidation. No pneumothorax or pleural effusion. Cardiac: Heart size is within normal limits. Pulmonary vasculature: Unremarkable. Mediastinum/edwardo: Unremarkable. Bones: No acute osseous abnormality identified. Other: No other significant findings. IMPRESSION: Atelectasis in the lung bases, right greater than left. No focal consolidation or other acute radiographic abnormality identified in the chest. SEPSIS Sepsis Screen Date sepsis recognized/suspect: Mar 15, 2025 Time Sepsis recognized/suspect: 1030 Recent Procedure: No On Antibiotic Therapy: No Respiratory Rate >20: No Heart Rate >90: No Temp<36 C (96.8 F) or >38.3 C: No SBP <90 or MAP <65 mmHG: No New Acute Mental Status Change: No Is the patient on CPAP, BIPAP,: No Physician Orders Blood Culture (03/15/25 12:51) Chest Portable (03/15/25 12:51) Electrocardigram (03/15/25 12:51) Vancomycin Per Pharmacy (03/15/25 18:00) Atorvastatin (Lipitor) (03/15/25 22:00) Pantoprazole (Protonix) (03/16/25 10:00) Allergies (03/15/25 18:00) Code Status (03/15/25 18:00) Sodium Chloride Lock (Saline Lock Ns) (03/15/25 22:00) Oxygen Per Hour (03/15/25 18:00) Hydrocodone-Acet 5/325mg Tab ([place] 5/32 (03/15/25 18:00) Ondansetron Hcl (Zofran) (03/15/25 18:00) Docusate Sodium Capsule (Colace Capsule) (03/15/25 18:00) Enoxaparin Sodium (Lovenox) (03/16/25 10:00) Fall Risk Precautions In Place QSHIFT (03/15/25 18:00) Complete Blood Count (03/16/25 04:00) Comprehensive Metabolic Panel (03/16/25 04:00) Cardiac Diet-2gna,Lofat,Lochol (03/15/25 Dinner) Condition: Serious (03/15/25 18:00) Acetaminophen Tablet (Tylenol Tablet) (03/15/25 18:00) Maintain Bed Rest (03/15/25 18:00) Vancomycin 1gm/250ml Kit (03/15/25 19:00) Vancomycin,Random (03/16/25 04:00) Admit (03/15/25 19:55) Nitroglycerin Sublingual (Ntrostat Subli (03/15/25 20:00) Morphine Sulfate Injection (03/15/25 20:00) Stat Ekg For Chest Pain (03/15/25 19:55) Notify Md Of Changes From Base (03/15/25 19:55) Cloth Carrier For 24 Hours (03/15/25 19:55) Emergency Dysrhythmia Protocol (03/15/25 19:55) Rhythm Strips Once Every Shift (03/15/25 19:55) Vital Signs Date Time Temp Pulse Resp B/P (MAP) Pulse Ox O2 Delivery O2 Flow Rate FiO2 03/15/25 17:06 57 15 112/41 03/15/25 16:19 61 16 136/46 03/15/25 16:00 97.6 61 16 136/46 (76) 94 97.6 Laboratory Tests Test 03/15/25 13:24 Lactic Acid Level 1.6 mmol/L (0.4-2.0) White Blood Count 6.7 10^3/uL (4.4-10.8) Medications Medications Dose Ordered Sig/Alfonso Route Start Time Stop Time Status Last Admin Dose Admin Cefazolin Sodium/ Dextrose 50 ml @ 50 mls/hr ONCE ONCE IV 03/15/25 13:00 03/15/25 13:59 DC 03/15/25 15:48 50 MLS/HR Morphine Sulfate 4 mg ONCE ONCE IV 03/15/25 16:15 03/15/25 16:16 DC 03/15/25 16:19 4 MG Ondansetron HCl 4 mg ONCE ONCE IV 03/15/25 16:15 03/15/25 16:16 DC 03/15/25 16:19 4 MG Vancomycin HCl 250 ml @ 250 mls/hr ONCE ONCE IV 03/15/25 13:00 03/15/25 13:59 DC 03/15/25 14:33 250 MLS/HR Assessment/Plan Assessment/Plan Bilateral lower extremity cellulitis Lymph edema of both lower extremities Generalized weakness Bilateral lower extremity edema Plan 1. Admit to telemetry unit 2. Breathing treatment 3. Pain control management 4. IV antibiotic management 5. Management of fluids and electrolytes 6. Consultation for hospitalist/wound care 7. Diagnostic test chest x-ray 8. DVT prophylaxis-on Lovenox 9. Repeat labs CBC, CMP in a.m. 10. Home medication reviewed and reconciled 11. Continue with current medical management 12. Treatment plan discussed with patient and RN. Patient verbalized understanding. Plan discussed with: Patient, Other (RN) My Orders Orders - OKPAN,CHANCE O DNP Procedure Category Date Status Time Vancomycin Per PHA 03/15/25 Pending Pharmacy 18:00 Atorvastatin (Lipitor) PHA 03/15/25 In Process 22:00 Pantoprazole PHA 03/16/25 In Process (Protonix) 10:00 Allergies REX 03/15/25 In Process 18:00 Code Status CODE 03/15/25 Transmitted 18:00 Sodium Chloride Lock PHA 03/15/25 In Process (Saline Lock Ns) 22:00 Oxygen Per Hour RT 03/15/25 Transmitted 18:00 Hydrocodone-Acet PHA 03/15/25 In Process 5/325mg Tab ([place] 18:00 Ondansetron Hcl PHA 03/15/25 In Process (Zofran) 18:00 Docusate Sodium PHA 03/15/25 In Process Capsule (Colace 18:00 Enoxaparin Sodium PHA 03/16/25 In Process (Lovenox) 10:00 Fall Risk Precautions REX 03/15/[address] 18:00 Complete Blood Count LAB 03/16/25 Verified 04:00 Comprehensive LAB 03/16/25 Verified Metabolic Panel 04:00 Cardiac DIET 03/15/25 Transmitted Diet-2gna,Lofat,Lochol Dinner Condition: Serious REX 03/15/25 In Process 18:00 Acetaminophen Tablet PHA 03/15/25 In Process (Tylenol Tablet) 18:00 Maintain Bed Rest REX 03/15/25 In Process 18:00 Vancomycin 1gm/250ml PHA 03/15/25 In Process Kit 19:00 Vancomycin,Random LAB 03/16/25 Verified 04:00 Admit ADMIT 03/15/25 Verified 19:55 Nitroglycerin [facility] 03/15/25 Verified Sublingual (Ntrostat 20:00 Morphine Sulfate [facility] 03/15/25 Verified Injection 20:00 Stat Ekg For Chest [facility] 03/15/25 Verified Pain 19:55 Notify Md Of Changes [facility] 03/15/25 Verified From Base 19:55 Cloth Carrier For [facility] 03/15/25 Verified 24 Hours 19:55 Emergency Dysrhythmia [facility] 03/15/25 Verified Protocol 19:55 Rhythm Strips Once [facility] 03/15/25 Verified Every Shift 19:55 Problem List: (1) Bilateral lower leg cellulitis (2) Lymphedema of both lower extremities (3) Generalized weakness (4) Bilateral lower extremity edema Date of Service: Mar 15, 2025 Billing Provider: CHANCE YOUNG DNP Common Visit Codes: [id number] INP/OBS CARE (HIGH) CHANCE YOUNG DNP Mar 15, 2025 19:56
[2025-03-15] MEDS ORDERED: MORPHINE SULFATE INJ 2 MG/ml SYRG IV PRN (20:00)
[2025-03-15] MEDS ORDERED: NITROGLYCERIN 0.4 MG SL TAB SL PRN (20:00)
[2025-03-15] MEDS: ATORVASTATIN 20 MG TAB PO SCH (21:55)
[2025-03-15] MEDS: SODIUM CHLOR 0.9% PF (SALINE LOCK) 10ML VIAL/SYR IV SCH (21:55)
[2025-03-15 22:52] VITALS: BP 85/31; PULSE 56; RESP 15; O2SAT 97
[2025-03-15 23:54] VITALS: BP 93/39
[2025-03-15] MEDS: HYDROcodone-ACET 5/325MG TAB PO PRN (23:57)
[2025-03-16] VITALS (9 sets, daily range): BP systolic 85–152; BP diastolic 31–63; PULSE 53–65; RESP 12–18; TEMP 97.8–98.6; O2SAT 95–100
[2025-03-16 03:02] LABS: Hematocrit 36.4 % (36.0-46.0); Hemoglobin 12.1 g/dL (12.2-16.2); Mean Corpuscular Hemoglobin 31.6 pg (28.0-32.0); Mean Corpuscular Volume 95.5 fL (80.0-100.0); Nucleated Red Blood Cells % 0.3 %
[2025-03-16 03:20] LABS: Alanine Aminotransferase 19 U/L (7-40); Albumin 3.5 g/dL (3.2-4.8); Alkaline Phosphatase 77 U/L (46-116); Anion Gap 7 (5-15); BUN/Creatinine Ratio 21.7 (10.0-20.0); Bilirubin, Total 0.3 mg/dL (0.2-1.0); Blood Urea Nitrogen 23 mg/dL (9-23); Calcium 8.9 mg/dL (8.7-10.4); Carbon Dioxide 25 mmol/L (20-31); Glucose 98 mg/dL (74-106); Potassium 4.6 mmol/L (3.5-5.1); Sodium 141 mmol/L (136-145)
[2025-03-16 03:24] LABS: Chloride 109 mmol/L (98-107); Total Protein 5.6 g/dL (5.7-8.2)
[2025-03-16] MEDS: FUROSEMIDE 20 MG/2 ML VIAL IV SCH (10:00)
[2025-03-16] MEDS: PANTOPRAZOLE 40 MG/10 ML VIAL INJ IV SCH (10:49)
[2025-03-16] MEDS: ENOXAPARIN SOD 40 MG/0.4 ML SYRINGE SC SCH (10:50)
--- NOTE | 2025-03-16 14:59 | DVHPN2 ---
Progress Note Date Seen: Mar 16, 2025 Medical Necessity Reason Pt with a Central, PICC or Fol: No Subjective Review of Systems: CVS:Normal, RESPIRATORY:Normal, GI:Normal, NEURO:Normal Objective vital signs Vital Sign Date Time Temp Pulse Resp B/P (MAP) Pulse Ox O2 Delivery O2 Flow Rate FiO2 03/16/25 12:01 55 11 124/77 (93) 98 03/16/25 08:20 Room Air* 0 21 03/16/25 08:00 97.9 97.9 Total Intake and Output 03/15/25 03/15/25 03/16/25 15:00 23:00 07:00 Intake Total 300 ml Balance 300 ml medications Current Medications Medications Dose Ordered Sig/Alfonso Route Start Time Stop Time Status Last Admin Dose Admin Vancomycin HCl 0 ml @ 0 mls/hr PER PHARMACY IV 03/15/25 18:00 Atorvastatin Calcium 20 mg HS PO 03/15/25 22:00 03/15/25 21:55 20 MG Pantoprazole Sodium 40 mg DAILY IV 03/16/25 10:00 03/16/25 10:49 40 MG Sodium Chloride 10 ml Q8HR IV 03/15/25 22:00 03/16/25 14:13 10 ML Acetaminophen/ Hydrocodone Bitart 1 tab Q4HP PRN PO 03/15/25 18:00 03/16/25 10:50 1 TAB Ondansetron HCl 4 mg Q4HP PRN IV 03/15/25 18:00 Docusate Sodium 100 mg BIDPRN PRN PO 03/15/25 18:00 Enoxaparin Sodium 40 mg DAILY SC 03/16/25 10:00 03/16/25 10:50 40 MG Acetaminophen 650 mg Q6HP PRN PO 03/15/25 18:00 Nitroglycerin 0.4 mg Q5MINP PRN SL 03/15/25 20:00 Morphine Sulfate 2 mg Q30M PRN IV 03/15/25 20:00 Furosemide 20 mg DAILY IV 03/16/25 10:00 Examination: GENERAL:Normal, LUNGS:Normal, CVS:Normal, ABDOMEN:Normal, SKIN:Normal, NEURO:Normal laboratory and microbiology Laboratory Tests 03/16/25 02:38 Test 03/16/25 02:38 Range/Units Serum Glucose 98 74-106 mg/dL Microbiology Date/Time Source Procedure Growth Status 03/16/25 06:18 Nose MRSA Screen - Final Complete 03/15/25 13:24 Blood Blood Culture - Preliminary NO GROWTH AFTER 24 HOURS OF INCUBATION. Resulted Labs and/or images reviewed: Labs reviewed by me Problem List/Assessment/Plan Problem List/Assessment/Plan Queenie Cheng was admitted for lower extremity cellulitis with concurrent lipedema and open sores requiring wound care consultation. Lower Extremity Cellulitis Assessment: Patient admitted for lower extremity cellulitis. Currently receiving vancomycin therapy with wound care consultation for associated open sores. Plan: - Continue vancomycin - Wound care consultation - DVT prophylaxis Bilateral Lower Extremity lymphedema Assessment: Patient has lymphedema affecting bilateral lower extremities contributing to overall clinical presentation. Plan: - No specific plan documented -order DD Morbid Obesity Assessment: Patient has morbid obesity requiring diuretic therapy for management. Plan: monitor Mild Anemia Assessment: Patient has mild anemia with hemoglobin of 12.1 g/dL requiring monitoring. Plan: - Monitor hemoglobin levels Plan discussed with: Patient My Orders My Orders Orders - BACILIO KENNEDY Procedure Category Date Status Time * Wound Consult CONS 03/16/25 Transmitted Cleanse Wound With REX 03/16/25 In Process Wound Clean 10:29 D-Dimer LAB 03/16/25 Logged 14:52 Dietary Evaluation Review Comments: Offer Prince BID to promote wound-healing Expected Outcomes/Goals: gradually healed wounds Date of Service: Mar 16, 2025 Billing Provider: AVNI MENDOZA MD Common Visit Codes: [id number] INP/OBS CARE (MOD) BACILIO KENNEDY Mar 16, 2025 14:59
[2025-03-17] VITALS (8 sets, daily range): BP systolic 106–132; BP diastolic 52–109; PULSE 51–63; RESP 14–18; TEMP 97.5–98.5; O2SAT 96–100
[2025-03-17 07:58] LABS: Hematocrit 37.8 % (36.0-46.0); Hemoglobin 12.6 g/dL (12.2-16.2); Mean Corpuscular Hemoglobin 31.8 pg (28.0-32.0); Mean Corpuscular Volume 95.2 fL (80.0-100.0); Nucleated Red Blood Cells % 0.0 %
--- NOTE | 2025-03-17 14:16 | DVHPN2 ---
Progress Note - Dictate Date Seen: Mar 17, 2025 Medical Necessity Reason Pt with a Central, PICC or Fol: No vital signs Vital Sign Date Time Temp Pulse Resp B/P (MAP) Pulse Ox O2 Delivery O2 Flow Rate FiO2 03/17/25 12:42 97.7 54 14 116/57 (76) 100 97.7 03/17/25 08:00 Room Air* 0 21 Total Intake and Output 03/16/25 03/16/25 03/17/25 15:00 23:00 07:00 Intake Total 950 ml 1200 ml Balance 950 ml 1200 ml medications Current Medications Medications Dose Ordered Sig/Alfonso Route Start Time Stop Time Status Last Admin Dose Admin Vancomycin HCl 0 ml @ 0 mls/hr PER PHARMACY IV 03/15/25 18:00 Atorvastatin Calcium 20 mg HS PO 03/15/25 22:00 03/16/25 22:23 20 MG Pantoprazole Sodium 40 mg DAILY IV 03/16/25 10:00 03/16/25 10:49 40 MG Sodium Chloride 10 ml Q8HR IV 03/15/25 22:00 03/17/25 05:36 10 ML Acetaminophen/ Hydrocodone Bitart 1 tab Q4HP PRN PO 03/15/25 18:00 03/17/25 02:41 1 TAB Ondansetron HCl 4 mg Q4HP PRN IV 03/15/25 18:00 Docusate Sodium 100 mg BIDPRN PRN PO 03/15/25 18:00 Enoxaparin Sodium 40 mg DAILY SC 03/16/25 10:00 03/17/25 11:10 40 MG Acetaminophen 650 mg Q6HP PRN PO 03/15/25 18:00 Nitroglycerin 0.4 mg Q5MINP PRN SL 03/15/25 20:00 Morphine Sulfate 2 mg Q30M PRN IV 03/15/25 20:00 Furosemide 20 mg DAILY IV 03/16/25 10:00 Vancomycin HCl 100 ml @ 200 mls/hr Q12H IV 03/17/25 20:00 objective General Appearance: alert, no distress HEENT: EOMI, PERRLA, normal external inspect of ears, no icterus, no nasal drainage Neck: no carotid bruit, no jugular venous distention (JVD), no lymphadenopathy Chest: normal thorax Respiratory: clear to auscultation, normal air movement Cardiovascular: regular rate and rhythm, no diastolic murmur, no jugular venous distention (JVD), no rub, no systolic murmur Abdominal: soft, no hepatomegaly, no mass, no splenomegaly, no tenderness Genitourinary: grossly normal external Musculoskeletal: no joint tenderness, no swelling Extremities: normal pulses, no calf tenderness, no clubbing, no cyanosis, no edema Skin: no bruising, no jaundice, no rash Neurological: alert, No focal deficit laboratory and microbiology Laboratory Tests 03/17/25 06:30 03/16/25 02:38 Test 03/16/25 02:38 Range/Units Serum Glucose 98 74-106 mg/dL Problem List Lower Extremity Cellulitis Assessment: Patient admitted for lower extremity cellulitis. Currently receiving vancomycin therapy with wound care consultation for associated open sores. Plan: - Continue vancomycin - Wound care consultation - DVT prophylaxis Bilateral Lower Extremity lymphedema Assessment: Patient has lymphedema affecting bilateral lower extremities contributing to overall clinical presentation. Plan: - No specific plan documented -order DD Morbid Obesity Assessment: Patient has morbid obesity requiring diuretic therapy for management. Plan: monitor Mild Anemia Assessment: Patient has mild anemia with hemoglobin of 12.1 g/dL requiring monitoring. Plan: - Monitor hemoglobin levels Assessment/Plan Subjective Patient is awake and alert. Objective Patient has lymphedema. Patient has lower extremity cellulitis. Patient was started on IV antibiotics. Slight decrease in GFR was noted from 93 to 56. Will hold diuretics at this time. Patient has an GENEVIEVE due to vasomotor nephropathy. Plan Continue antibiotics. Monitor renal function. Discharge planning in 1-2 days. Dietary Evaluation Review Comments: Offer Prince BID to promote wound-healing Expected Outcomes/Goals: gradually healed wounds Plan discussed with: Patient, Other SELAM HALLMAN NP Mar 17, 2025 14:16
[2025-03-17] MEDS: VANCOMYCIN 750MG KIT 100 ML IV SCH (15:00)
[2025-03-17] MEDS ORDERED: VANCOMYCIN 500mg/100mL 100 ML IV SCH (20:00)
[2025-03-17] MEDS: APIXABAN 5 MG TAB PO SCH (22:11)
[2025-03-17] MEDS: DOCUSATE SOD 100 MG CAP PO PRN (22:12)
[2025-03-18] VITALS (8 sets, daily range): BP systolic 125–145; BP diastolic 57–79; PULSE 49–67; RESP 16–17; TEMP 97.5–98.2; O2SAT 97–100
--- NOTE | 2025-03-18 10:48 | MEDREC ---
[facility] ASP Intervention Section I [facility] ASP Intervention: Deescalate AB based on CS (Vanco started emperically for cellulitis. Today wound culture came back with Pseudomonas. Recommended RISK ADVISOR Vira to d/c Vancomycin and chose Ciprofloxacin PO based on susceptibility result. RISK ADVISOR agreed) FREDERIC DUBOIS [facility] RESIDENT Mar 18, 2025 10:48
[2025-03-18] MEDS: CIPROFLOXACIN HCL 500 MG TAB PO SCH (12:15)
[2025-03-18] MEDS ORDERED: CIPR-173 PO (12:17)
--- NOTE | 2025-03-18 12:19 | DVHDS2 ---
Discharge Summary Date of Admission Mar 15, 2025 at 19:55 Date of Discharge: Mar 19, 2025 Labs/Diagnostic Data: Laboratory Results Test 03/18/25 04:48 03/17/25 06:30 03/16/25 19:15 03/16/25 02:38 Creatinine 0.76 mg/dL (0.550-1.02) Glomerular Filtration Rate Calc 84 mL/min (>90) White Blood Count 6.7 10^3/uL (4.4-10.8) Red Blood Count 3.97 10^6/uL (4.0-5.20) Hemoglobin 12.6 g/dL (12.2-16.2) Hematocrit 37.8 % (36.0-46.0) Mean Corpuscular Volume 95.2 fL (80.0-100.0) Mean Corpuscular Hemoglobin 31.8 pg (28.0-32.0) Mean Corpuscular Hemoglobin Concent 33.4 g/dL (32.0-36.0) Red Cell Distribution Width 14.4 % (11.8-14.3) Platelet Count 170 10^3/uL (140-450) Mean Platelet Volume 12.2 fL (6.9-10.8) Neutrophils (%) (Auto) 67.9 % (37.0-80.0) Lymphocytes (%) (Auto) 20.9 % (10.0-50.0) Monocytes (%) (Auto) 9.2 % (0.0-12.0) Eosinophils (%) (Auto) 1.7 % (0.0-7.0) Basophils (%) (Auto) 0.3 % (0.0-2.0) Neutrophils # (Auto) 4.5 10 ^3/uL (1.6-8.6) Lymphocytes # (Auto) 1.4 10 ^3/uL (0.4-5.4) Monocytes # (Auto) 0.6 10 ^3/uL (0-1.3) Eosinophils # (Auto) 0.1 10 ^3/uL (0-0.8) Basophils # (Auto) 0 10 ^3/uL (0-0.2) Nucleated Red Blood Cells 0.0 % D-Dimer, Quantitative 0.39 mg/L FEU (0.0-0.49) Sodium Level 141 mmol/L (136-145) Potassium Level 4.6 mmol/L (3.5-5.1) Chloride Level 109 mmol/L (98-107) Carbon Dioxide Level 25 mmol/L (20-31) Anion Gap 7 (5-15) Blood Urea Nitrogen 23 mg/dL (9-23) BUN/Creatinine Ratio 21.7 (10.0-20.0) Serum Glucose 98 mg/dL (74-106) Calcium Level 8.9 mg/dL (8.7-10.4) Total Bilirubin 0.3 mg/dL (0.2-1.0) Aspartate Amino Transferase (AST) 22 U/L (13-40) Alanine Aminotransferase (ALT) 19 U/L (7-40) Alkaline Phosphatase 77 U/L (46-116) Total Protein 5.6 g/dL (5.7-8.2) Albumin 3.5 g/dL (3.2-4.8) Random Vancomycin Level 21.6 ug/mL (5-10) Test 03/15/25 13:24 03/15/25 11:30 Lactic Acid Level 1.6 mmol/L (0.4-2.0) Troponin I High Sensitivity 10 ng/L (</=34) B-Type Natriuretic Peptide 115.57 pg/mL (0-100) Urine Color Colorless (Yellow) Urine Clarity Clear (Clear) Urine pH 5.0 (5.0-9.0) Urine Specific [place] 1.010 (1.001-1.035) Urine Protein Negative (Negative) Urine Ketones Negative (Negative) Urine Blood Negative /uL (Negative) Urine Nitrite Negative (Negative) Urine Bilirubin Negative (Negative) Urine Urobilinogen Normal mg/dL (Negative) Urine Leukocyte Esterase Negative /uL (Negative) Urine RBC <1 /hpf (0 - 4) Urine Microscopic WBC < 1 /HPF (0-5) Urine Squamous Epithelial Cells Few /hpf (<5) Urine Bacteria None seen /hpf (None Seen) Urine Glucose Normal mg/dL (Normal) Other Laboratory Tests 03/18/25 04:48 03/17/25 06:30 03/16/25 02:38 Brief Hx & Hospital Course: Patient was admitted 03/15/2025 for pain to lower extremities. Patient has chronic lymphedema and cellulitis to her lower extremities. Wound culture was done, she was found to have pseudomonas. ID recommendations were made. Patient was cleared for discharge. Home health was arranged for assistance with daily wound care. She will complete antibiotic course. Patient will follow up with her PCP in 1 week. The patient received proper medical treatment and medications. Vital signs, Imaging and Laboratory Work was monitored. All consults recommendations were followed as provided. There were no complaints or new complaints upon discharge, all questions and concerns were answered. Patient was advised to return to the ER or call 911 if any headaches, dizziness, shortness of breath, chest pain, bleeding, fevers, or worsening of medical condition. Patient/Family was counseled about treatment plan, medications, possible side effects, patientverbalized understanding. All questions were answered to the best of my ability. The patient symptoms improved and they are okay to be DC. Condition at Discharge: Stable Final Diagnosis/Problems List Cellulitis with chronic lymphedema Morbid Obesity Mild Anemia Discharge Disposition: Home with Health Services Discharge Instruct/Medications Diet: Cardiac 2g Na,low cholest Activity: No Restrictions, As Tolerated Follow Up/Referral: f/u pcp 1 week will need referral for lymphedema clinic Medications: cipro Scheduled Atorvastatin Calcium (Atorvastatin Calcium), 20 MG PO HS Ciprofloxacin Hcl (Cipro), 1 TAB PO BID Furosemide (Furosemide), 1 TAB PO DAILY Gabapentin (Gabapentin), 100 MG PO TID, (Reported) Olmesartan Medoxomil (Olmesartan Medoxomil), 1 TAB PO DAILY, (Reported) Spironolactone (Spironolactone), 1 TAB PO DAILY Tramadol Hcl (Tramadol Hcl), 1-2 TAB PO BID PRN, (Reported) Discontinued Medications Cephalexin Monohydrate (Cephalexin), 1 CAP PO TID Doxycycline Monohydrate (Doxycycline Monohydrate), 1 CAP PO BID Doxycycline Monohydrate (Doxycycline Monohydrate), 1 CAP PO BID Spironolactone (Aldactone), 1 TAB PO DAILY Tramadol HCl (Tramadol HCl), 50 MG PO BID Discharge Statement: "Patient was advised to return to the ER or call 911 if any headaches, dizziness, shortness of breath, chest pain, abdominal pain, bleeding, fevers, or worsening of medical condition. Patient was counseled about treatment plan, medications, possible side effects, patientverbalized understanding. All questions were answered to the best of my ability. This discharge took greater then 30 minutes in planning, reviewing documentation, counseling the patient, and discussing with other team members." ASSESSMENT ASSESSMENT Assessment Cellulitis with chronic lymphedema SELAM HALLMAN NP Mar 18, 2025 12:19
--- NOTE | 2025-03-18 21:00 | DVHPN2 ---
Progress Note - Dictate Date Seen: Mar 18, 2025 Medical Necessity Reason Pt with a Central, PICC or Fol: No vital signs Vital Sign Date Time Temp Pulse Resp B/P (MAP) Pulse Ox O2 Delivery O2 Flow Rate FiO2 03/18/25 17:00 97.9 58 17 145/79 (101) 97 97.9 03/18/25 08:00 Room Air* 0 21 Total Intake and Output 03/17/25 03/17/25 03/18/25 15:00 23:00 07:00 Intake Total 1000 ml 600 ml Balance 1000 ml 600 ml medications Current Medications Medications Dose Ordered Sig/Alfonso Route Start Time Stop Time Status Last Admin Dose Admin Atorvastatin Calcium 20 mg HS PO 03/15/25 22:00 03/17/25 22:11 20 MG Pantoprazole Sodium 40 mg DAILY IV 03/16/25 10:00 03/18/25 10:07 40 MG Sodium Chloride 10 ml Q8HR IV 03/15/25 22:00 03/18/25 16:12 10 ML Acetaminophen/ Hydrocodone Bitart 1 tab Q4HP PRN PO 03/15/25 18:00 03/18/25 18:05 1 TAB Ondansetron HCl 4 mg Q4HP PRN IV 03/15/25 18:00 Docusate Sodium 100 mg BIDPRN PRN PO 03/15/25 18:00 03/17/25 22:12 100 MG Acetaminophen 650 mg Q6HP PRN PO 03/15/25 18:00 Nitroglycerin 0.4 mg Q5MINP PRN SL 03/15/25 20:00 Morphine Sulfate 2 mg Q30M PRN IV 03/15/25 20:00 Apixaban 5 mg BID PO 03/17/25 22:00 03/18/25 10:08 5 MG Ciprofloxacin 500 mg Q12HR PO 03/18/25 12:15 03/18/25 12:15 500 MG objective General Appearance: alert, no distress HEENT: EOMI, PERRLA, normal external inspect of ears, no icterus, no nasal drainage Neck: no carotid bruit, no jugular venous distention (JVD), no lymphadenopathy Chest: normal thorax Respiratory: clear to auscultation, normal air movement Cardiovascular: regular rate and rhythm, no diastolic murmur, no jugular venous distention (JVD), no rub, no systolic murmur Abdominal: soft, no hepatomegaly, no mass, no splenomegaly, no tenderness Genitourinary: grossly normal external Musculoskeletal: no joint tenderness, no swelling Extremities: normal pulses, no calf tenderness, no clubbing, no cyanosis, no edema Skin: no bruising, no jaundice, no rash Neurological: alert, No focal deficit laboratory and microbiology Laboratory Tests 03/18/25 04:48 03/17/25 06:30 03/16/25 02:38 Test 03/16/25 02:38 Range/Units Serum Glucose 98 74-106 mg/dL Problem List Lower Extremity Cellulitis Assessment: Patient admitted for lower extremity cellulitis. Currently receiving vancomycin therapy with wound care consultation for associated open sores. Plan: - Continue vancomycin - Wound care consultation - DVT prophylaxis Bilateral Lower Extremity lymphedema Assessment: Patient has lymphedema affecting bilateral lower extremities contributing to overall clinical presentation. Plan: - No specific plan documented -order DD Morbid Obesity Assessment: Patient has morbid obesity requiring diuretic therapy for management. Plan: monitor Mild Anemia Assessment: Patient has mild anemia with hemoglobin of 12.1 g/dL requiring monitoring. Plan: - Monitor hemoglobin levels Assessment/Plan Subjective Patient is awake and alert. Objective Patient was admitted for bilateral lower extremity cellulitis. Wound culture shows Pseudomonas. Patient states she recently had a change in her insurance and she needs home health to assist with daily wound care. I did consult social work associate due to today being a holiday. Unable to secure home health at this time Plan Continue antibiotics with Cipro and plan for discharge tomorrow once home health arrangements have been made. Patient will need to follow-up outpatient for lymphedema clinic. Dietary Evaluation Review Comments: Offer Prince BID to promote wound-healing Expected Outcomes/Goals: gradually healed wounds Plan discussed with: Patient, Other SELAM HALLMAN NP Mar 18, 2025 21:00
[2025-03-19] VITALS (9 sets, daily range): BP systolic 107–141; BP diastolic 43–77; PULSE 53–59; RESP 16–19; TEMP 36.5; O2SAT 87–100
[2025-03-20 05:00] VITALS: BP 154/65; PULSE 65; RESP 18; TEMP 98.1; O2SAT 96
[2025-03-20 07:32] VITALS: PULSE 49
--- NOTE | 2025-03-20 08:34 | MEDREC ---
[facility] ASP Intervention Section I [facility] ASP Intervention: Review courses of therapy (Wound culture now grows Enterococcus faecalis. Please consider adding vancomycin for this organism) FR[facility]ERIC DUBOIS [facility] RESIDENT Mar 20, 2025 08:33
[2025-03-20 09:00] VITALS: BP 116/57; PULSE 59; RESP 16; TEMP 98.6; O2SAT 97
--- NOTE | 2025-03-20 11:26 | DVHDS2 ---
Discharge Summary Date of Admission Mar 15, 2025 at 19:55 Date of Discharge: Mar 20, 2025 Labs/Diagnostic Data: Laboratory Results Test 03/18/25 04:48 03/17/25 06:30 03/16/25 19:15 03/16/25 02:38 Creatinine 0.76 mg/dL (0.550-1.02) Glomerular Filtration Rate Calc 84 mL/min (>90) White Blood Count 6.7 10^3/uL (4.4-10.8) Red Blood Count 3.97 10^6/uL (4.0-5.20) Hemoglobin 12.6 g/dL (12.2-16.2) Hematocrit 37.8 % (36.0-46.0) Mean Corpuscular Volume 95.2 fL (80.0-100.0) Mean Corpuscular Hemoglobin 31.8 pg (28.0-32.0) Mean Corpuscular Hemoglobin Concent 33.4 g/dL (32.0-36.0) Red Cell Distribution Width 14.4 % (11.8-14.3) Platelet Count 170 10^3/uL (140-450) Mean Platelet Volume 12.2 fL (6.9-10.8) Neutrophils (%) (Auto) 67.9 % (37.0-80.0) Lymphocytes (%) (Auto) 20.9 % (10.0-50.0) Monocytes (%) (Auto) 9.2 % (0.0-12.0) Eosinophils (%) (Auto) 1.7 % (0.0-7.0) Basophils (%) (Auto) 0.3 % (0.0-2.0) Neutrophils # (Auto) 4.5 10 ^3/uL (1.6-8.6) Lymphocytes # (Auto) 1.4 10 ^3/uL (0.4-5.4) Monocytes # (Auto) 0.6 10 ^3/uL (0-1.3) Eosinophils # (Auto) 0.1 10 ^3/uL (0-0.8) Basophils # (Auto) 0 10 ^3/uL (0-0.2) Nucleated Red Blood Cells 0.0 % D-Dimer, Quantitative 0.39 mg/L FEU (0.0-0.49) Sodium Level 141 mmol/L (136-145) Potassium Level 4.6 mmol/L (3.5-5.1) Chloride Level 109 mmol/L (98-107) Carbon Dioxide Level 25 mmol/L (20-31) Anion Gap 7 (5-15) Blood Urea Nitrogen 23 mg/dL (9-23) BUN/Creatinine Ratio 21.7 (10.0-20.0) Serum Glucose 98 mg/dL (74-106) Calcium Level 8.9 mg/dL (8.7-10.4) Total Bilirubin 0.3 mg/dL (0.2-1.0) Aspartate Amino Transferase (AST) 22 U/L (13-40) Alanine Aminotransferase (ALT) 19 U/L (7-40) Alkaline Phosphatase 77 U/L (46-116) Total Protein 5.6 g/dL (5.7-8.2) Albumin 3.5 g/dL (3.2-4.8) Random Vancomycin Level 21.6 ug/mL (5-10) Test 03/15/25 13:24 03/15/25 11:30 Lactic Acid Level 1.6 mmol/L (0.4-2.0) Troponin I High Sensitivity 10 ng/L (</=34) B-Type Natriuretic Peptide 115.57 pg/mL (0-100) Urine Color Colorless (Yellow) Urine Clarity Clear (Clear) Urine pH 5.0 (5.0-9.0) Urine Specific [place] 1.010 (1.001-1.035) Urine Protein Negative (Negative) Urine Ketones Negative (Negative) Urine Blood Negative /uL (Negative) Urine Nitrite Negative (Negative) Urine Bilirubin Negative (Negative) Urine Urobilinogen Normal mg/dL (Negative) Urine Leukocyte Esterase Negative /uL (Negative) Urine RBC <1 /hpf (0 - 4) Urine Microscopic WBC < 1 /HPF (0-5) Urine Squamous Epithelial Cells Few /hpf (<5) Urine Bacteria None seen /hpf (None Seen) Urine Glucose Normal mg/dL (Normal) Other Laboratory Tests 03/18/25 04:48 03/17/25 06:30 03/16/25 02:38 Brief Hx & Hospital Course: Patient was admitted on March 15, 2025 for cellulitis to her bilateral lower extremities. Patient also has chronic lymphedema. Patient was given several doses of diuretics. She was instructed to follow-up with her PCP and or vascular surgeon or lymphedema clinic. Patient had a wound biopsy done and antibiotics were sent to her pharmacy to complete her antibiotic therapy. Home health was arranged for daily wound care. The patient received proper medical treatment and medications. Vital signs, Imaging and Laboratory Work was monitored daily. All consults recommendations were followed as provided. There were no complaints or new complaints upon discharge, all questions and concerns were answered. Patient was advised to return to the ER or call 911 if any headaches, dizziness, shortness of breath, chest pain, bleeding, fevers, or worsening of medical condition. Patient/Family was counseled about treatment plan, medications, possible side effects, patient verbalized understanding. All questions were answered to the best of my ability. The patient symptoms improved and they are okay to be DC. Condition at Discharge: Good Final Diagnosis/Problems List Cellulitis with chronic lymphedema Morbid Obesity Mild Anemia Secondary Diagnosis: Lower Extremity Cellulitis Bilateral Lower Extremity lymphedema Discharge Disposition: Home with Health Services Discharge Instruct/Medications Diet: Cardiac 2g Na,low cholest Activity: No Restrictions, As Tolerated Follow Up/Referral: f/u pcp 1 week will need referral for lymphedema clinic Medications: cipro Scheduled Atorvastatin Calcium (Atorvastatin Calcium), 20 MG PO HS Ciprofloxacin Hcl (Cipro), 1 TAB PO BID Furosemide (Furosemide), 1 TAB PO DAILY Gabapentin (Gabapentin), 100 MG PO TID, (Reported) Olmesartan Medoxomil (Olmesartan Medoxomil), 1 TAB PO DAILY, (Reported) Spironolactone (Spironolactone), 1 TAB PO DAILY Tramadol Hcl (Tramadol Hcl), 1-2 TAB PO BID PRN, (Reported) Discontinued Medications Cephalexin Monohydrate (Cephalexin), 1 CAP PO TID Doxycycline Monohydrate (Doxycycline Monohydrate), 1 CAP PO BID Doxycycline Monohydrate (Doxycycline Monohydrate), 1 CAP PO BID Spironolactone (Aldactone), 1 TAB PO DAILY Tramadol HCl (Tramadol HCl), 50 MG PO BID Discharge Statement: "Patient was advised to return to the ER or call 911 if any headaches, dizziness, shortness of breath, chest pain, abdominal pain, bleeding, fevers, or worsening of medical condition. Patient was counseled about treatment plan, medications, possible side effects, patientverbalized understanding. All questions were answered to the best of my ability. This discharge took greater then 30 minutes in planning, reviewing documentation, counseling the patient, and discussing with other team members." ASSESSMENT ASSESSMENT Hospital Course Patient was admitted 03/15/2025 for pain to lower extremities. Patient has chronic lymphedema and cellulitis to her lower extremities. Wound culture was done, she was found to have pseudomonas. ID recommendations were made. Patient was cleared for discharge. Home health was arranged for assistance with daily wound care. She will complete antibiotic course. Patient will follow up with her PCP in 1 week. The patient received proper medical treatment and medications. Vital signs, Imaging and Laboratory Work was monitored. All consults recommendations were followed as provided. There were no complaints or new complaints upon discharge, all questions and concerns were answered. Patient was advised to return to the ER or call 911 if any headaches, dizziness, shortness of breath, chest pain, bleeding, fevers, or worsening of medical condition. Patient/Family was counseled about treatment plan, medications, possible side effects, patientverbalized understanding. All questions were answered to the best of my ability. The patient symptoms improved and they are okay to be DC. Assessment Cellulitis with chronic lymphedemaMorbid ObesityMild Anemia SELAM HALLMAN NP Mar 20, 2025 11:26
[2025-03-20 13:00] VITALS: BP 149/60; PULSE 62; RESP 18; TEMP 98.9; O2SAT 99
== END 2025-03-20 16:45 | disposition home health service (06) | DRG 603 ==
LOC: EDBD 10:27 → ER 10:27 → OVERFLOW 19:55 → TELE-WESTW 03-16 15:52
PROVIDERS: ADMIT Nurse Practitioner Family; ATTEND Nurse Practitioner Family
DX: L03.115 Cellulitis of right lower limb (principal); I11.0 Hypertensive heart disease with heart failure; I50.9 Heart failure, unspecified; D64.9 Anemia, unspecified; L03.116 Cellulitis of left lower limb; E66.01 Morbid (severe) obesity due to excess calories; J45.909 Unspecified asthma, uncomplicated; J98.11 Atelectasis; I89.0 Lymphedema, not elsewhere classified; I25.10 Atherosclerotic heart disease of native coronary artery without angina pectoris; E78.5 Hyperlipidemia, unspecified; I48.91 Unspecified atrial fibrillation; Z88.2 Allergy status to sulfonamides; Z79.2 Long term (current) use of antibiotics; Z79.899 Other long term (current) drug therapy; Z68.21 Body mass index [BMI] 21.0-21.9, adult
CPT/HCPCS: 36415; 71045; 80048; 80053; 80202; 81001; 82565; 83605; 83880; 84484; 85025; 85379; 87040; 87077; 87081; 87186; 87205; 96365; 96367; 96375; G0378; J1885; J2405; J2470

== ENCOUNTER 2025-03-26 11:33 | Inpatient (IN) | payer MEDICARE ==
[~2025-03-26] VITALS: Ht 167.6 cm; Wt 89.5 kg
[~2025-03-26 11:33] MED LIST changes: -CEPH500C PO; +CIPR-173 PO; -DOXY1CAP57 PO; -SPIR25TA PO; -TRAM-626 PO
--- NOTE | 2025-03-26 11:51 | ED.PDOC ---
Musculoskeletal HPI Comments This is a 69 year old female EMILYA presenting to the ED with chief complaint of right leg swelling. Patient reports that she has an active infection in her right leg that has been needing wound care for the past week, however, the wound care nurse she was assigned has not come to her home in 2 days. Patient relays that her right leg has worsening swelling with associated redness, pain, and drainage over the past 2 days. Patient denies any fever, chills, numbness, weakness, chest pain, or SOB. Chief Complaint: Lower Extremity Time Seen by MD: 11:48 Primary Care Provider: Luis Felipe Avilez Reviewed Notes: Nurses Notes, Perforator Operator Notes, Medications, Allergies Allergies: Coded Allergies: Sulfa Antibiotics (Verified Allergy, Unknown, 11/25/23) Amlodipine (Unverified Adverse Reaction, Unknown, 07/10/24) Peripheral edema Uncoded Allergies: Gauze (Allergy, Intermediate, 11/29/24) Per patient, causes skin to darken red. Informed to refuse gauze. Home Meds Active Scripts Ciprofloxacin Hcl (Cipro) 500 Mg Tab, 1 TAB PO BID, #20 TAB 1 Refill Prov:SELAM HALLMAN NP 03/18/25 Furosemide (Furosemide) 40 Mg Tab, 1 TAB PO DAILY, #90 TAB 1 Refill Prov:AWA MILTON MD 11/19/24 Atorvastatin Calcium (ATORVASTATIN CALCIUM) 20 Mg Tab, 20 MG PO HS, #60 TAB Prov:AWA MILTON MD 11/19/24 Spironolactone (Spironolactone) 25 Mg Tab, 1 TAB PO DAILY, #60 TAB Prov:AWA MILTON MD 11/19/24 Reported Medications Olmesartan Medoxomil (Olmesartan Medoxomil) 20 Mg Tab, 1 TAB PO DAILY 11/29/24 Gabapentin (Gabapentin) 100 Mg Cap, 100 MG PO TID 11/29/24 Tramadol Hcl (Tramadol Hcl) 50 Mg Tab, 1-2 TAB PO BID PRN for 30 Days, #120 08/01/24 Information Source: Patient, Emergency Med Personnel Mode of Arrival: EMS Location: Right Extremity Location: Leg Timing: Days Prehospital treatment: None Severity: Moderate Able to Move Extremity: No Bear Weight: No Pain: Moderate Mechanism: Spontaneous Circumstances: Preceding Wound Onset of Symptoms: Spontaneous Symptoms: Swelling, Pain, Erythema DVT Risk Factors: CHF Past Medical History PAST MEDICAL HISTORY: AFIB, Asthma, CAD, CHF, High Lipids, HTN Surgical History: Denies all surgeries 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: No 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 Family History Family History: Reviewed,noncontributory to illness Social History Smoker: Non-Smoker Alcohol: Denies ETOH Use Drugs: Denies Drug Use Lives In: Home Constitutional: denies: chills, diaphoresis, fatigue, fever, malaise, sweats, weakness, others EENTM: denies: blurred vision, double vision, ear bleeding, ear discharge, ear drainage, ear pain, ear ringing, eye pain, eye redness, hearing loss, mouth pain, mouth swelling, nasal discharge, nose bleeding, nose congestion, nose pain, photophobia, tearing, throat pain, throat swelling, voice changes, others Respiratory: denies: cough, hemoptysis, orthopnea, SOB at rest, shortness of breath, SOB with excertion, stridor, wheezing, others Cardiovascular: denies: chest pain, dizzy spells, diaphoresis, Dyspnea on exertion, edema, irregular heart beat, left arm pain, lightheadedness, palpitations, PND, syncope, others Gastrointestinal: denies: abdomen distended, abdominal pain, blood streaked bowels, constipated, diarrhea, dysphagia, difficulty swallowing, hematemesis, me scott, nausea, poor appetite, poor fluid intake, rectal bleeding, rectal pain, vomiting, others Genitourinary: denies: abnormal vagina bleeding, burning, dyspareunia, dysuria, flank pain, frequency, hematuria, incontinence, pain, , vagina discharge, urgency, others Neurological: denies: dizziness, fainting, headache, left sided numbness, left sided weakness, numbness, paresthesia, pre-existing deficit, right sided numbness, right sided weakness, seizure, speech problems, tingling, tremors, weakness, others Musculoskeletal: denies: back pain, gout, joint pain, joint swelling, muscle pain, muscle stiffness, neck pain, others Integumetry: reports: wounds (Redness, swelling, and drainage to right leg); denies: bruises, change in color, change in hair/nails, dryness, laceration, lesions, lumps, rash, others Allergic/Immunocompromised: denies: Difficulty Healing, Frequent Infections, Hives, Itching, others Hematologic/Lymphatic: denies: anemia, blood clots, easy bleeding, easy bruisi ng, swollen glands, others Endocrine: denies: excessive hunger, excessive sweating, excessive thirst, exce ssive urination, flushing, intolerance to cold, intolerance to heat, unexplained weight gain, unexplained weight loss, others Psychiatric: denies: anxiety, bipolar disorder, depression, hopeless, panic disorder, schizophrenia, sleepless, suicidal, others All Other Systems: Reviewed and Negative Physical Exam General Appearance: No Apparent Distress, Normal HEENT: Normal ENT Inspection, Pharynx Normal, TMs Normal Neck: Full Range of Motion, Non-Tender, Normal, Normal Inspection Respiratory: Chest Non-Tender, Lungs Clear, No Accessory Muscle Use, No Respiratory Distress, Normal Breath Sounds Cardiovascular: No Edema, No JVD, No Murmur, No Gallop, Normal Peripheral Pulses, Regular Rate/Rhythm Breast Exam: Deferred Gastrointestinal: No Organomegaly, Non Tender, No Pulsatile Mass, Normal Bowel Sounds, Soft Genitalia: Deferred Pelvic: Deferred Rectal: Deferred Extremities: Other (Lower extremity edema 2+ with erythema to right leg.) Musculoskeletal : Apperance: Normal Neurologic: Alert, tile layer drainage II-XII nml as Tested, No Motor Deficits, Normal Affect, Normal Mood, No Sensory Deficits Cerebellar Function: Normal Reflexes: Normal Skin: Dry, Normal Color, Warm Lymphatic: No Adenopathy Was a procedure done? Was a procedure done?: No Differential Diagnosis EXT Differential Diagnosis: Cellulitis, Deep Vein Thrombosis, Septic X-Ray, Labs, Meds, VS Vital Signs Date Time Temp Pulse Resp B/P (MAP) Pulse Ox O2 Delivery O2 Flow Rate FiO2 03/26/25 11:37 97.6 64 16 123/72 99 97.6 Lab Test 03/26/25 14:10 03/26/25 12:10 Range/Units Urine Color Pending Urine Clarity Pending Urine pH Pending Urine Specific [place] Pending Urine Protein Pending Urine Ketones Pending Urine Blood Pending Urine Nitrite Pending Urine Bilirubin Pending Urine Urobilinogen Pending Urine Leukocyte Esterase Pending Urine RBC Pending Urine Microscopic WBC Pending Urine Squamous Epithelial Cells Pending Urine Bacteria Pending Urine Glucose Pending White Blood Count 6.3 4.4-10.8 10^3/uL Red Blood Count 4.13 4.0-5.20 10^6/uL Hemoglobin 13.2 12.2-16.2 g/dL Hematocrit 39.2 36.0-46.0 % Mean Corpuscular Volume 94.9 80.0-100.0 fL Mean Corpuscular Hemoglobin 31.9 28.0-32.0 pg Mean Corpuscular Hemoglobin Concent 33.6 32.0-36.0 g/dL Red Cell Distribution Width 14.0 11.8-14.3 % Platelet Count 192 140-450 10^3/uL Mean Platelet Volume 10.9 H 6.9-10.8 fL Neutrophils (%) (Auto) 67.0 37.0-80.0 % Lymphocytes (%) (Auto) 20.8 10.0-50.0 % Monocytes (%) (Auto) 10.7 0.0-12.0 % Eosinophils (%) (Auto) 1.2 0.0-7.0 % Basophils (%) (Auto) 0.3 0.0-2.0 % Neutrophils # (Auto) 4.2 1.6-8.6 10 ^3/uL Lymphocytes # (Auto) 1.3 0.4-5.4 10 ^3/uL Monocytes # (Auto) 0.7 0-1.3 10 ^3/uL Eosinophils # (Auto) 0.1 0-0.8 10 ^3/uL Basophils # (Auto) 0 0-0.2 10 ^3/uL Nucleated Red Blood Cells 0.0 % Sodium Level 144 136-145 mmol/L Potassium Level 3.9 3.5-5.1 mmol/L Chloride Level 110 H 98-107 mmol/L Carbon Dioxide Level 24 20-31 mmol/L Anion Gap 10 5-15 Blood Urea Nitrogen 20 9-23 mg/dL Creatinine 0.66 0.550-1.02 mg/dL Glomerular Filtration Rate Calc 94 >90 mL/min BUN/Creatinine Ratio 30.3 H 10.0-20.0 Serum Glucose 135 H 74-106 mg/dL Lactic Acid Level 1.6 0.4-2.0 mmol/L Calcium Level 9.3 8.7-10.4 mg/dL Troponin I High Sensitivity 11 </=34 ng/L B-Type Natriuretic Peptide 156.94 0-100 pg/mL [facility] [address] [facility] [address] Ph: [phone] DIAGNOSTIC IMAGING Diagnostic Imaging Report : [id number] Signed PATIENT: NASIR ROSARIO RACCT: [id number] UNIT: [id number] : 1955 LOC: ER ROOM / BED: / AGE / SEX: 69 / F ADM STATUS: REG ER SERVICE 1149 ORDERING PHYSICIAN: ALEJANDRA CUELLO MD PROCEDURE(s): CXRP - CHEST PORTABLE REASON: weakness ORDER NUMBER(s): [id number], ACCESSION NUMBER(s): [id number] CHEST RADIOGRAPH Indication: weakness Technique: XY CHEST PORTABLE Comparison: None FINDINGS: The cardiac silhouette is unremarkable. The lungs demonstrate no pulmonary airspace consolidation. The pulmonary vasculature is unremarkable. There is no pleural effusion. There is no pneumothorax. Aortic atherosclerotic disease. IMPRESSION: No pulmonary airspace consolidation. ATED BY: LAUREN VALADEZ MD DICTATED DATE/TIME: 03/26/25 1306 SIGNED BY: LAUREN VALADEZ MD SIGNED DATE/TIME: 03/26/25 1306 CC: Images Reviewed?: Images reviewed and evaluated by me Time of 1ST Reevaluation: 12:47 Reevaluation 1ST: Unchanged Patient Education/Counseling: Diagnosis, Treatment Family Education/Counseling: No Family Present Sepsis Sepsis Reasesment Focused Exam Orders: Laboratory Tests 03/26/25 12:10: Lactic Acid Level 1.6 Departure 1 Departure Time of Disposition: 14:16 (Patient with a worsening cellulitis lower extremity. Patient is not appear septic. We will empirically cover patient with antibiotics and the patient for further workup and expert consultation) Impression: Primary Impression: Edema of right lower extremity Additional Impression: Cellulitis of right lower extremity Disposition: ADMITTED INPATIENT Admit to: [facility] Condition: Guarded Critical Care Note Critical Care Time?: No Stability Stability form required: No Heart Score Heart Score: Heart Score Response (Comments) Value History N/A 0 EKG N/A 0 Age N/A 0 Risk Factors N/A 0 Troponin N/A 0 Total 0 I personally scribed for ALEJANDRA CUELLO MD ([email or web address]) on 03/26/25 at 11:51. Electronically submitted by Mitchell Bradshaw ([email or web address]). I personally scribed for ALEJANDRA CUELLO MD ([email or web address]) on 03/26/25 at 13:16. Electronically submitted by Mitchell Bradshaw ([email or web address]). ALEJANDRA CUELLO MD Mar 26, 2025 11:51
[2025-03-26 12:26] LABS: Hematocrit 39.2 % (36.0-46.0); Hemoglobin 13.2 g/dL (12.2-16.2); Mean Corpuscular Hemoglobin 31.9 pg (28.0-32.0); Mean Corpuscular Volume 94.9 fL (80.0-100.0); Nucleated Red Blood Cells % 0.0 %
[2025-03-26 12:32] LABS: Potassium 3.9 mmol/L (3.5-5.1); Sodium 144 mmol/L (136-145)
[2025-03-26 12:33] LABS: Anion Gap 10 (5-15); Carbon Dioxide 24 mmol/L (20-31)
[2025-03-26 12:34] LABS: Calcium 9.3 mg/dL (8.7-10.4)
[2025-03-26 12:35] LABS: Chloride 110 mmol/L (98-107)
[2025-03-26 12:39] LABS: BUN/Creatinine Ratio 30.3 (10.0-20.0); Blood Urea Nitrogen 20 mg/dL (9-23); Glucose 135 mg/dL (74-106)
--- NOTE | 2025-03-26 13:03 | DVH ---
CHEST RADIOGRAPH Indication: weakness Technique: XY CHEST PORTABLE Comparison: None FINDINGS: The cardiac silhouette is unremarkable. The lungs demonstrate no pulmonary airspace consolidation. The pulmonary vasculature is unremarkable. There is no pleural effusion. There is no pneumothorax. Aortic atherosclerotic disease. IMPRESSION: No pulmonary airspace consolidation.
[2025-03-26 14:29] LABS: Urine Protein, UAD Negative (Negative)
[2025-03-26] MEDS ORDERED: ACETAMINOPHEN 325 MG TAB PO PRN (16:30)
[2025-03-26] MEDS ORDERED: TEMAZEPAM 15 MG CAP PO PRN (16:30)
[2025-03-26] MEDS ORDERED: ONDANSETRON HCL 4 MG/2 ML VIAL IV PRN (16:30)
[2025-03-26] MEDS ORDERED: DOCUSATE SOD 100 MG CAP PO PRN (16:30)
--- NOTE | 2025-03-26 16:31 | DVHHP2 ---
Admitting Diagnosis: Right leg swelling History of Present Illness 69 yo female patient c/o right leg swelling. Patient reports having an active infection to her leg that has been needing wound care x 1 week but the nurse has not come to her home in 2 days. Patient sts that the swelling and redness to her leg has been worsening. While in the emergency department the patient was evaluated by the provider, As per provider: Labs, vital signs, and imagining monitored. Patient will be admitted for further evaluation and treatment. I discussed admission with the patient/family and is in agreement to treatment plan. Patient Family History: Angina Grandmother Cardiovascular disease G8 MOTHER (GALLBLADDER STONES), , Age: 90, Onset:60 years & older (had cancer but mother from gallbladder per patient) family hx1, , Age: 95, Onset:60 years & older (heart attack) FH: CHF (congestive heart failure) G8 FATHER FHx: bladder cancer G8 MOTHER (GALLBLADDER STONES), , Age: 90, Onset:60 years & older Family member G8 FATHER, Onset:95 Allergies: Coded Allergies: Beef Allergy (Unverified Allergy, Mild, 03/27/25) Pork (Porcine) Protein (Unverified Allergy, Unknown, 03/27/25) PER PATIENT Sulfa Antibiotics (Verified Allergy, Unknown, 11/25/23) Amlodipine (Unverified Adverse Reaction, Unknown, 07/10/24) Peripheral edema Uncoded Allergies: Gauze (Allergy, Intermediate, 11/29/24) Per patient, causes skin to darken red. Informed to refuse gauze. Home Meds Active Scripts Ciprofloxacin Hcl (Cipro) 500 Mg Tab, 1 TAB PO BID, #20 TAB 1 Refill Prov:SELAM HALLMAN NP 03/18/25 Furosemide (Furosemide) 40 Mg Tab, 1 TAB PO DAILY, #90 TAB 1 Refill Prov:AWA MILTON MD 11/19/24 Atorvastatin Calcium (ATORVASTATIN CALCIUM) 20 Mg Tab, 20 MG PO HS, #60 TAB Prov:AWA MILTON MD 11/19/24 Spironolactone (Spironolactone) 25 Mg Tab, 1 TAB PO DAILY, #60 TAB Prov:AWA MILTON MD 11/19/24 Reported Medications Olmesartan Medoxomil (Olmesartan Medoxomil) 20 Mg Tab, 1 TAB PO DAILY 11/29/24 Gabapentin (Gabapentin) 100 Mg Cap, 100 MG PO TID 11/29/24 Tramadol Hcl (Tramadol Hcl) 50 Mg Tab, 1-2 TAB PO BID PRN for 30 Days, #120 08/01/24 Current Medications Current Medications Medications (Trade) Dose Ordered Sig/Alfonso Route PRN Reason Start Time Stop Time Status Last Admin Zinc Sulfate 220 mg DAILY PO 03/27/25 10:00 03/27/25 10:39 Ascorbic Acid (Vitamin C Tablet) 500 mg BID PO 03/26/25 22:00 03/27/25 10:38 Multivitamins (Mvi Tab) 1 tab DAILY PO 03/27/25 10:00 03/27/25 10:38 Enoxaparin Sodium (Lovenox) 40 mg DAILY SC 03/27/25 10:00 03/27/25 10:38 Atorvastatin Calcium (Lipitor) 20 mg HS PO 03/26/25 22:00 03/26/25 23:14 Furosemide (Lasix Tablet) 40 mg DAILY PO 03/27/25 10:00 03/27/25 10:38 Gabapentin (Neurontin Capsule) 100 mg TID PO 03/26/25 22:00 03/26/25 23:14 Spironolactone (Aldactone) 25 mg DAILY PO 03/27/25 10:00 Pantoprazole Sodium (Protonix Tablet) 40 mg DAILY PO 03/27/25 10:00 03/27/25 10:39 Review of Systems Constitutional: denies chills, denies fever, denies malaise Eyes: denies eye pain, denies vision change ENT: denies ear pain, denies headache, denies nasal congestion, denies painful swallowing, denies voice change Cardiovascular: denies chest pain, denies edema, denies orthopnea, denies palpitations, denies paroxysmal nocturnal dyspnea Respiratory: denies cough, denies shortness of breath Gastrointestinal: denies constipation, denies diarrhea, denies nausea, denies vomiting Genitourinary: denies dysuria, denies frequent urination, denies urethral discharge Musculoskeletal: denies back pain, denies joint pain, denies muscle pain Skin: denies bruising, denies itching, denies rash Neurological: denies focal weakness, denies headache, denies sensory changes Psychiatric: denies anxiety, denies depression Endocrine: denies polydipsia, denies polyuria Hematologic/Lymphatic: denies easy bleeding, denies easy bruising, denies enlarged lymph nodes Allergic/Immunologic: denies allergy, denies hives Vital Signs Vital Signs Date Time Temp Pulse Resp B/P (MAP) Pulse Ox O2 Delivery O2 Flow Rate FiO2 03/27/25 17:00 98.3 53 17 134/83 (100) 98 98.3 03/27/25 08:00 Room Air* 0 21 Physical Exam General Appearance: alert, no distress HEENT: EOMI, PERRLA, normal external inspect of ears, no icterus, no nasal drainage Neck: no carotid bruit, no jugular venous distention (JVD), no lymphadenopathy Chest: normal thorax Respiratory: clear to auscultation, normal air movement Cardiovascular: regular rate and rhythm, no diastolic murmur, no jugular venous distention (JVD), no rub, no systolic murmur Abdominal: soft, no hepatomegaly, no mass, no splenomegaly, no tenderness Genitourinary: grossly normal external Musculoskeletal: no joint tenderness, no swelling Extremities: normal pulses, no calf tenderness, no clubbing, no cyanosis, no edema Skin: no bruising, no jaundice, no rash Neurological: alert, No focal deficit SEPSIS Sepsis Screen Date sepsis recognized/suspect: Mar 26, 2025 Time Sepsis recognized/suspect: 1136 Recent Procedure: No On Antibiotic Therapy: Yes Respiratory Rate >20: No Heart Rate >90: No Temp<36 C (96.8 F) or >38.3 C: No SBP <90 or MAP <65 mmHG: No New Acute Mental Status Change: No Is the patient on CPAP, BIPAP,: No Physician Orders Chest Portable (03/26/25 11:49) Blood Culture (03/26/25 11:49) Admit (03/26/25 16:27) Code Status (03/26/25 16:27) Hydrocodone-Acet 5/325mg Tab ([place] 5/32 (03/26/25 16:30) Temazepam (Restoril) (03/26/25 16:30) Ondansetron Hcl (Zofran) (03/26/25 16:30) Docusate Sodium Capsule (Colace Capsule) (03/26/25 16:30) Zinc Sulfate (03/27/25 10:00) Ascorbic Acid Tablet (Vitamin C Tablet) (03/26/25 22:00) Multiple Vitamin Tablet (Mvi Tab) (03/27/25 10:00) Fall Risk Precautions In Place QSHIFT (03/26/25 16:27) Cardiac Diet-2gna,Lofat,Lochol (03/26/25 Dinner) Condition: Stable (03/26/25 16:27) Acetaminophen Tablet (Tylenol Tablet) (03/26/25 16:30) Morphine Sulfate Injection (03/26/25 16:30) Enoxaparin Sodium (Lovenox) (03/27/25 10:00) Piperacillin-Tazob 3.375gm (Zosyn 3.375g (03/26/25 16:30) * Wound Consult (03/26/25 ) Atorvastatin (Lipitor) (03/26/25 22:00) Furosemide Tablet (Lasix Tablet) (03/27/25 10:00) Gabapentin Capsule (Neurontin Capsule) (03/26/25 22:00) Spironolactone (Aldactone) (03/27/25 10:00) Pantoprazole Tablet (Protonix Tablet) (03/27/25 10:00) * Carbon Brush Maker Consult (03/27/25 ) Apply Z-Guard BID (03/27/25 11:55) Vital Signs Date Time Temp Pulse Resp B/P (MAP) Pulse Ox O2 Delivery O2 Flow Rate FiO2 03/27/25 17:00 98.3 53 17 134/83 (100) 98 98.3 03/27/25 13:00 98.3 53 17 134/83 (100) 98 98.3 03/27/25 10:38 113/38 03/27/25 08:00 55 17 Room Air* 0 21 03/27/25 05:00 97.6 60 18 9/47 (34) 98 97.6 03/27/25 03:35 97.9 54 18 128/54 (78) 97 97.9 03/27/25 03:35 54 18 97 Room Air* 0 21 03/27/25 03:00 97.9 54 14 128/54 (78) 97 97.9 03/27/25 02:18 97.4 55 16 129/46 (73) 99 97.4 03/26/25 23:47 62 16 109/59 (76) 100 03/26/25 21:53 97.7 53 16 121/42 (68) 98 97.7 03/26/25 19:49 60 18 100 Room Air* 0 21 03/26/25 19:48 98.0 60 18 157/79 (105) 100 98.0 03/26/25 16:03 98.2 57 16 156/78 (104) 100 98.2 03/26/25 11:37 97.6 64 16 123/72 99 97.6 Laboratory Tests Test 03/26/25 12:10 03/27/25 07:40 Lactic Acid Level 1.6 mmol/L (0.4-2.0) White Blood Count 6.3 10^3/uL (4.4-10.8) 6.1 10^3/uL (4.4-10.8) Medications Medications Dose Ordered Sig/Alfonso Route Start Time Stop Time Status Last Admin Dose Admin Enoxaparin Sodium 40 mg DAILY SC 03/27/25 10:00 03/27/25 10:38 Furosemide 40 mg DAILY PO 03/27/25 10:00 03/27/25 10:38 Multivitamins 1 tab DAILY PO 03/27/25 10:00 03/27/25 10:38 Pantoprazole Sodium 40 mg DAILY PO 03/27/25 10:00 03/27/25 10:39 Zinc Sulfate 220 mg DAILY PO 03/27/25 10:00 03/27/25 10:39 Results Labs Test 03/27/25 07:40 03/26/25 14:10 03/26/25 12:10 Range/Units White Blood Count 6.1 4.4-10.8 10^3/uL Red Blood Count 4.22 4.0-5.20 10^6/uL Hemoglobin 13.6 12.2-16.2 g/dL Hematocrit 40.1 36.0-46.0 % Mean Corpuscular Volume 95.0 80.0-100.0 fL Mean Corpuscular Hemoglobin 32.1 H 28.0-32.0 pg Mean Corpuscular Hemoglobin Concent 33.8 32.0-36.0 g/dL Red Cell Distribution Width 14.2 11.8-14.3 % Platelet Count 182 140-450 10^3/uL Mean Platelet Volume 10.9 H 6.9-10.8 fL Neutrophils (%) (Auto) 53.7 37.0-80.0 % Lymphocytes (%) (Auto) 32.0 10.0-50.0 % Monocytes (%) (Auto) 11.8 0.0-12.0 % Eosinophils (%) (Auto) 2.1 0.0-7.0 % Basophils (%) (Auto) 0.4 0.0-2.0 % Neutrophils # (Auto) 3.3 1.6-8.6 10 ^3/uL Lymphocytes # (Auto) 2.0 0.4-5.4 10 ^3/uL Monocytes # (Auto) 0.7 0-1.3 10 ^3/uL Eosinophils # (Auto) 0.1 0-0.8 10 ^3/uL Basophils # (Auto) 0 0-0.2 10 ^3/uL Nucleated Red Blood Cells 0.2 % Sodium Level 142 136-145 mmol/L Potassium Level 4.5 3.5-5.1 mmol/L Chloride Level 108 H 98-107 mmol/L Carbon Dioxide Level 24 20-31 mmol/L Anion Gap 10 5-15 Blood Urea Nitrogen 23 9-23 mg/dL Creatinine 0.86 # 0.550-1.02 mg/dL Glomerular Filtration Rate Calc 72 >90 mL/min BUN/Creatinine Ratio 26.7 H 10.0-20.0 Serum Glucose 78 74-106 mg/dL Calcium Level 9.4 8.7-10.4 mg/dL Total Bilirubin 0.7 0.2-1.0 mg/dL Aspartate Amino Transferase (AST) 33 13-40 U/L Alanine Aminotransferase (ALT) 28 7-40 U/L Alkaline Phosphatase 88 46-116 U/L Total Protein 6.6 5.7-8.2 g/dL Albumin 4.0 3.2-4.8 g/dL Urine Color Light-yellow Yellow Urine Clarity Clear Clear Urine pH 5.0 5.0-9.0 Urine Specific [place] 1.019 1.001-1.035 Urine Protein Negative Negative Urine Ketones Negative Negative Urine Blood Trace H Negative /uL Urine Nitrite Negative Negative Urine Bilirubin Negative Negative Urine Urobilinogen Normal Negative mg/dL Urine Leukocyte Esterase Negative Negative /uL Urine RBC <1 0 - 4 /hpf Urine Microscopic WBC 1 0-5 /HPF Urine Squamous Epithelial Cells Few <5 /hpf Urine Bacteria None seen None Seen /hpf Urine Glucose Normal Normal mg/dL Lactic Acid Level 1.6 0.4-2.0 mmol/L Troponin I High Sensitivity 11 </=34 ng/L B-Type Natriuretic Peptide 156.94 0-100 pg/mL Microbiology Date/Time Source Procedure Growth Status 03/27/25 08:25 Nose MRSA Screen - Final Complete 03/26/25 12:10 Blood Blood Culture - Preliminary NO GROWTH AFTER 24 HOURS OF INCUBATION. Resulted Plan 1. Right lower extremity cellulitis Monitor, IV abx, wound care consult 2. Chronic lymphedema Monitor, cardiac diet 3. Wheelchair bound Monitor, DVT prophylaxis 4. Morbid obesity Monitor, PPI Plan discussed with: Patient, Other SELAM HALLMAN NP Mar 26, 2025 16:30
[2025-03-26] MEDS: VANCOMYCIN 1GM/250ML KIT 250 ML IV ONE (17:16)
[2025-03-26] MEDS: HYDROcodone-ACET 5/325MG TAB PO PRN (17:17)
[2025-03-26] MEDS: PIPERACILLIN-TAZOB 3.375GM 100 ML IV ONE (19:21)
[2025-03-26] MEDS: PIPERACILLIN-TAZOB 3.375GM 100 ML IV SCH (19:31)
[2025-03-26 19:49] VITALS: PULSE 60; RESP 18; O2SAT 100
[2025-03-26] MEDS: GABAPENTIN 100 MG CAP PO SCH (23:14)
[2025-03-26] MEDS: ATORVASTATIN 20 MG TAB PO SCH (23:14)
[2025-03-26] MEDS: ASCORBIC ACID 500 MG TAB PO SCH (23:14)
[2025-03-27] VITALS (8 sets, daily range): BP systolic 9–134; BP diastolic 47–83; PULSE 53–60; RESP 14–18; TEMP 97.6–98.3; O2SAT 97–98
--- NOTE | 2025-03-27 07:13 | DVHPN2 ---
Progress Note - Dictate Date Seen: Mar 27, 2025 Medical Necessity Reason Pt with a Central, PICC or Fol: No vital signs Vital Sign Date Time Temp Pulse Resp B/P (MAP) Pulse Ox O2 Delivery O2 Flow Rate FiO2 03/27/25 05:00 97.6 60 18 9/47 (34) 98 97.6 03/27/25 03:35 Room Air* 0 21 Total Intake and Output 03/26/25 03/26/25 03/27/25 15:00 23:00 07:00 Intake Total 350 ml 150 ml Balance 350 ml 150 ml medications Current Medications Medications Dose Ordered Sig/Alfonso Route Start Time Stop Time Status Last Admin Dose Admin Acetaminophen/ Hydrocodone Bitart 1 tab Q4HP PRN PO 03/26/25 16:30 03/27/25 02:39 1 TAB Temazepam 15 mg QHSP PRN PO 03/26/25 16:30 Ondansetron HCl 4 mg Q4HP PRN IV 03/26/25 16:30 Docusate Sodium 100 mg BIDPRN PRN PO 03/26/25 16:30 Zinc Sulfate 220 mg DAILY PO 03/27/25 10:00 Ascorbic Acid 500 mg BID PO 03/26/25 22:00 03/26/25 23:14 500 MG Multivitamins 1 tab DAILY PO 03/27/25 10:00 Acetaminophen 650 mg Q6HP PRN PO 03/26/25 16:30 Morphine Sulfate 2 mg Q4HPRN PRN IV 03/26/25 16:30 Enoxaparin Sodium 40 mg DAILY SC 03/27/25 10:00 Piperacillin Sod/ Tazobactam Sod 100 ml @ 100 mls/hr Q8HR IV 03/26/25 16:30 03/27/25 06:13 100 MLS/HR Atorvastatin Calcium 20 mg HS PO 03/26/25 22:00 03/26/25 23:14 20 MG Furosemide 40 mg DAILY PO 03/27/25 10:00 Gabapentin 100 mg TID PO 03/26/25 22:00 03/26/25 23:14 100 MG Spironolactone 25 mg DAILY PO 03/27/25 10:00 Pantoprazole Sodium 40 mg DAILY PO 03/27/25 10:00 objective General Appearance: alert, no distress HEENT: EOMI, PERRLA, normal external inspect of ears, no icterus, no nasal drainage Neck: no carotid bruit, no jugular venous distention (JVD), no lymphadenopathy Chest: normal thorax Respiratory: clear to auscultation, normal air movement Cardiovascular: regular rate and rhythm, no diastolic murmur, no jugular venous distention (JVD), no rub, no systolic murmur Abdominal: soft, no hepatomegaly, no mass, no splenomegaly, no tenderness Genitourinary: grossly normal external Musculoskeletal: no joint tenderness, no swelling Extremities: normal pulses, no calf tenderness, no clubbing, no cyanosis, no edema Skin: no bruising, no jaundice, no rash Neurological: alert, No focal deficit laboratory and microbiology Laboratory Tests 03/26/25 12:10 Test 03/26/25 12:10 Range/Units Serum Glucose 135 H 74-106 mg/dL Problem List 1. Right lower extremity cellulitis Monitor, IV abx, wound care consult 2. Chronic lymphedema Monitor, cardiac diet 3. Wheelchair bound Monitor, DVT prophylaxis 4. Morbid obesity Monitor, PPI Assessment/Plan Subjective: Patient is awake and alert. Objective: Patient states home health nurse never showed up to her house. Patient was recently discharged 1 week ago. Patient has worsening right lower extremity cellulitis. She was prescribed Cipro on last discharge. Patient has chronic lymphedema and she is wheelchair-bound. Plan: Start IV antibiotics. Wound care consult. career services director consult to arrange for home health with daily wound care. Plan discussed with: Patient, Other SELAM HALLMAN NP Mar 27, 2025 07:13
--- NOTE | 2025-03-27 07:14 | DVHPN2 ---
Progress Note - Dictate vital signs Vital Sign Date Time Temp Pulse Resp B/P (MAP) Pulse Ox O2 Delivery O2 Flow Rate FiO2 03/27/25 05:00 97.6 60 18 9/47 (34) 98 97.6 03/27/25 03:35 Room Air* 0 21 Total Intake and Output 03/26/25 03/26/25 03/27/25 15:00 23:00 07:00 Intake Total 350 ml 150 ml Balance 350 ml 150 ml medications Current Medications Medications Dose Ordered Sig/Alfonso Route Start Time Stop Time Status Last Admin Dose Admin Acetaminophen/ Hydrocodone Bitart 1 tab Q4HP PRN PO 03/26/25 16:30 03/27/25 02:39 1 TAB Temazepam 15 mg QHSP PRN PO 03/26/25 16:30 Ondansetron HCl 4 mg Q4HP PRN IV 03/26/25 16:30 Docusate Sodium 100 mg BIDPRN PRN PO 03/26/25 16:30 Zinc Sulfate 220 mg DAILY PO 03/27/25 10:00 Ascorbic Acid 500 mg BID PO 03/26/25 22:00 03/26/25 23:14 500 MG Multivitamins 1 tab DAILY PO 03/27/25 10:00 Acetaminophen 650 mg Q6HP PRN PO 03/26/25 16:30 Morphine Sulfate 2 mg Q4HPRN PRN IV 03/26/25 16:30 Enoxaparin Sodium 40 mg DAILY SC 03/27/25 10:00 Piperacillin Sod/ Tazobactam Sod 100 ml @ 100 mls/hr Q8HR IV 03/26/25 16:30 03/27/25 06:13 100 MLS/HR Atorvastatin Calcium 20 mg HS PO 03/26/25 22:00 03/26/25 23:14 20 MG Furosemide 40 mg DAILY PO 03/27/25 10:00 Gabapentin 100 mg TID PO 03/26/25 22:00 03/26/25 23:14 100 MG Spironolactone 25 mg DAILY PO 03/27/25 10:00 Pantoprazole Sodium 40 mg DAILY PO 03/27/25 10:00 laboratory and microbiology Laboratory Tests 03/26/25 12:10 Test 03/26/25 12:10 Range/Units Serum Glucose 135 H 74-106 mg/dL SELAM HALLMAN [employer] PRODUCT TESTER Mar 27, 2025 07:14
[2025-03-27 08:07] LABS: Hematocrit 40.1 % (36.0-46.0); Hemoglobin 13.6 g/dL (12.2-16.2); Mean Corpuscular Hemoglobin 32.1 pg (28.0-32.0); Mean Corpuscular Volume 95.0 fL (80.0-100.0); Nucleated Red Blood Cells % 0.2 %
[2025-03-27 09:22] LABS: Alanine Aminotransferase 28 U/L (7-40); Alkaline Phosphatase 88 U/L (46-116); Anion Gap 10 (5-15); Calcium 9.4 mg/dL (8.7-10.4); Carbon Dioxide 24 mmol/L (20-31); Potassium 4.5 mmol/L (3.5-5.1); Sodium 142 mmol/L (136-145)
[2025-03-27 09:23] LABS: BUN/Creatinine Ratio 26.7 (10.0-20.0); Glucose 78 mg/dL (74-106)
[2025-03-27 09:24] LABS: Total Protein 6.6 g/dL (5.7-8.2)
[2025-03-27 09:25] LABS: Albumin 4.0 g/dL (3.2-4.8)
[2025-03-27 09:26] LABS: Bilirubin, Total 0.7 mg/dL (0.2-1.0); Blood Urea Nitrogen 23 mg/dL (9-23); Chloride 108 mmol/L (98-107)
[2025-03-27] MEDS: SPIRONOLACTONE 25 MG TAB PO SCH (10:00)
[2025-03-27] MEDS: MULTIPLE VITAMIN TAB PO SCH (10:38)
[2025-03-27] MEDS: ENOXAPARIN SOD 40 MG/0.4 ML SYRINGE SC SCH (10:38)
[2025-03-27] MEDS: FUROSEMIDE 40 MG TAB PO SCH (10:38)
[2025-03-27] MEDS: ZINC SULFATE 220mg CAP or TAB PO SCH (10:39)
[2025-03-27] MEDS: PANTOPRAZOLE 40 MG TAB PO SCH (10:39)
[2025-03-27] MEDS: MORPHINE SULFATE INJ 2 MG/ml SYRG IV PRN (21:37)
[2025-03-28] VITALS (7 sets, daily range): BP systolic 106–139; BP diastolic 39–89; PULSE 53–124; RESP 16–18; TEMP 97.7–99; O2SAT 96–99
[2025-03-28 11:23] LABS: Hematocrit 39.0 % (36.0-46.0); Hemoglobin 12.8 g/dL (12.2-16.2); Mean Corpuscular Hemoglobin 31.1 pg (28.0-32.0); Mean Corpuscular Volume 94.6 fL (80.0-100.0); Nucleated Red Blood Cells % 0.1 %
[2025-03-28 11:31] LABS: Potassium 4.4 mmol/L (3.5-5.1); Sodium 142 mmol/L (136-145)
[2025-03-28 11:32] LABS: Anion Gap 7 (5-15); Carbon Dioxide 28 mmol/L (20-31)
[2025-03-28 11:33] LABS: Calcium 9.0 mg/dL (8.7-10.4)
[2025-03-28 11:37] LABS: BUN/Creatinine Ratio 26.4 (10.0-20.0); Glucose 94 mg/dL (74-106)
[2025-03-28 11:38] LABS: Blood Urea Nitrogen 28 mg/dL (9-23); Chloride 107 mmol/L (98-107)
--- NOTE | 2025-03-28 13:27 | DVHPN2 ---
Progress Note Date Seen: Mar 28, 2025 Medical Necessity Reason Pt with a Central, PICC or Fol: No Subjective Review of Systems: CVS:Normal, RESPIRATORY:Normal, GI:Normal, :Normal Objective vital signs Vital Sign Date Time Temp Pulse Resp B/P (MAP) Pulse Ox O2 Delivery O2 Flow Rate FiO2 03/28/25 10:46 111/55 03/28/25 09:00 97.7 55 16 97 97.7 03/28/25 08:00 Room Air* 0 21 Total Intake and Output 03/27/25 03/27/25 03/28/25 15:00 23:00 07:00 Intake Total 1470 ml 230 ml Balance 1470 ml 230 ml medications Current Medications Medications Dose Ordered Sig/Alfonso Route Start Time Stop Time Status Last Admin Dose Admin Acetaminophen/ Hydrocodone Bitart 1 tab Q4HP PRN PO 03/26/25 16:30 03/28/25 10:45 1 TAB Temazepam 15 mg QHSP PRN PO 03/26/25 16:30 Ondansetron HCl 4 mg Q4HP PRN IV 03/26/25 16:30 Docusate Sodium 100 mg BIDPRN PRN PO 03/26/25 16:30 Zinc Sulfate 220 mg DAILY PO 03/27/25 10:00 03/28/25 10:45 220 MG Ascorbic Acid 500 mg BID PO 03/26/25 22:00 03/28/25 10:45 500 MG Multivitamins 1 tab DAILY PO 03/27/25 10:00 03/28/25 10:45 1 TAB Acetaminophen 650 mg Q6HP PRN PO 03/26/25 16:30 Morphine Sulfate 2 mg Q4HPRN PRN IV 03/26/25 16:30 03/27/25 21:37 2 MG Enoxaparin Sodium 40 mg DAILY SC 03/27/25 10:00 03/28/25 10:46 40 MG Piperacillin Sod/ Tazobactam Sod 100 ml @ 100 mls/hr Q8HR IV 03/26/25 16:30 03/28/25 06:21 100 MLS/HR Atorvastatin Calcium 20 mg HS PO 03/26/25 22:00 03/27/25 21:36 20 MG Furosemide 40 mg DAILY PO 03/27/25 10:00 03/28/25 10:46 40 MG Gabapentin 100 mg TID PO 03/26/25 22:00 03/26/25 23:14 100 MG Spironolactone 25 mg DAILY PO 03/27/25 10:00 03/28/25 10:45 25 MG Pantoprazole Sodium 40 mg DAILY PO 03/27/25 10:00 03/28/25 10:45 40 MG Examination: GENERAL:Normal, LUNGS:Normal, CVS:Normal, ABDOMEN:Normal, SKIN:Normal, NEURO:Normal laboratory and microbiology Laboratory Tests 03/28/25 10:50 Test 03/28/25 10:50 Range/Units Serum Glucose 94 74-106 mg/dL Microbiology Date/Time Source Procedure Growth Status 03/27/25 08:25 Nose MRSA Screen - Final Complete 03/26/25 12:10 Blood Blood Culture - Preliminary NO GROWTH AFTER 48 HOURS OF INCUBATION. Resulted Labs and/or images reviewed: Labs reviewed by me, Image(s) reviewed by me Problem List/Assessment/Plan Problem List/Assessment/Plan 1. Right lower extremity cellulitis Monitor, IV abx, wound care consult 2. Chronic lymphedema Monitor, cardiac diet 3. Wheelchair bound Monitor, DVT prophylaxis 4. Morbid obesity Monitor, PPI 5. vasomotor nephropathy monitor BMP Assessment/Plan Subjective: Patient is awake and alert. Objective: Patient states home health nurse never showed up to her house. Patient was recently discharged 1 week ago. Patient has worsening right lower extremity cellulitis. She was prescribed Cipro on last discharge. Patient has chronic lymphedema and she is wheelchair-bound.awaiting for watch case polisher to arrange for HH. Plan: Start IV antibiotics. Wound care consult. director of medical staff services consult to arrange for home health with daily wound care. Plan discussed with: Patient Date of Service: Mar 28, 2025 Billing Provider: AVNI MENDOZA MD Common Visit Codes: [id number] INP/OBS CARE (MOD) BACILIO KENNEDY TAPE KELLER OPERATOR Mar 28, 2025 13:26
[2025-03-29 05:00] VITALS: BP 103/51; PULSE 58; RESP 18; TEMP 98.1; O2SAT 97
[2025-03-29 08:55] VITALS: BP 113/74; PULSE 50; RESP 17; TEMP 97.6; O2SAT 96
--- NOTE | 2025-03-29 10:58 | DVHPN2 ---
Progress Note Date Seen: Mar 29, 2025 Medical Necessity Reason Pt with a Central, PICC or Fol: No Subjective Review of Systems: CVS:Normal, RESPIRATORY:Normal, :Normal, NEURO:Normal Objective vital signs Vital Sign Date Time Temp Pulse Resp B/P (MAP) Pulse Ox O2 Delivery O2 Flow Rate FiO2 03/29/25 10:30 113/74 03/29/25 08:55 97.6 50 17 96 97.6 03/28/25 20:00 Room Air* 0 21 Total Intake and Output 03/28/25 03/28/25 03/29/25 15:00 23:00 07:00 Intake Total 870 ml 200 ml Output Total 500 ml 400 ml Balance 370 ml -200 ml medications Current Medications Medications Dose Ordered Sig/Alfonso Route Start Time Stop Time Status Last Admin Dose Admin Acetaminophen/ Hydrocodone Bitart 1 tab Q4HP PRN PO 03/26/25 16:30 03/29/25 05:28 1 TAB Temazepam 15 mg QHSP PRN PO 03/26/25 16:30 Ondansetron HCl 4 mg Q4HP PRN IV 03/26/25 16:30 Docusate Sodium 100 mg BIDPRN PRN PO 03/26/25 16:30 Zinc Sulfate 220 mg DAILY PO 03/27/25 10:00 03/29/25 10:32 220 MG Ascorbic Acid 500 mg BID PO 03/26/25 22:00 03/29/25 10:32 500 MG Multivitamins 1 tab DAILY PO 03/27/25 10:00 03/29/25 10:32 1 TAB Acetaminophen 650 mg Q6HP PRN PO 03/26/25 16:30 Morphine Sulfate 2 mg Q4HPRN PRN IV 03/26/25 16:30 03/27/25 21:37 2 MG Enoxaparin Sodium 40 mg DAILY SC 03/27/25 10:00 03/29/25 10:29 40 MG Piperacillin Sod/ Tazobactam Sod 100 ml @ 100 mls/hr Q8HR IV 03/26/25 16:30 03/29/25 05:28 100 MLS/HR Atorvastatin Calcium 20 mg HS PO 03/26/25 22:00 03/28/25 22:15 20 MG Furosemide 40 mg DAILY PO 03/27/25 10:00 03/29/25 10:30 40 MG Gabapentin 100 mg TID PO 03/26/25 22:00 03/26/25 23:14 100 MG Spironolactone 25 mg DAILY PO 03/27/25 10:00 03/28/25 10:45 25 MG Pantoprazole Sodium 40 mg DAILY PO 03/27/25 10:00 03/29/25 10:32 40 MG Diphenhydramine HCl 25 mg Q4HP PRN PO 03/29/25 11:00 UNV Examination: GENERAL:Normal, LUNGS:Normal, CVS:Normal, ABDOMEN:Normal, SKIN:Abnormal (bilateral leg redness) laboratory and microbiology Laboratory Tests 03/28/25 10:50 Test 03/28/25 10:50 Range/Units Serum Glucose 94 74-106 mg/dL Microbiology Date/Time Source Procedure Growth Status 03/27/25 08:25 Nose MRSA Screen - Final Complete 03/26/25 12:10 Blood Blood Culture - Preliminary NO GROWTH AFTER 48 HOURS OF INCUBATION. Resulted Labs and/or images reviewed: Labs reviewed by me, Image(s) reviewed by me Problem List/Assessment/Plan Problem List/Assessment/Plan 1. Right lower extremity cellulitis Monitor, IV abx, wound care consult 2. Chronic lymphedema Monitor, cardiac diet 3. Wheelchair bound Monitor, DVT prophylaxis 4. Morbid obesity Monitor, PPI 5. vasomotor nephropathy monitor BMP Assessment/Plan Subjective: Patient is awake and alert. Objective: Patient states home health nurse never showed up to her house. Patient was recently discharged 1 week ago. Patient has worsening right lower extremity cellulitis. She was prescribed Cipro on last discharge. Patient has chronic lymphedema and she is wheelchair-bound.awaiting for case management coordinator to arrange for HH. Plan: Start IV antibiotics. Wound care consult. environmental services tech consult to arrange for home health with daily wound care. Plan discussed with: Patient My Orders My Orders Orders - BACILIO KENNEDY Procedure Category Date Status Time Diphenhydramine PHA 03/29/25 Logged Capsule (Benadryl 11:00 Date of Service: Mar 29, 2025 Billing Provider: AVNI MENDOZA MD Common Visit Codes: [id number] INP/OBS CARE (MOD) BACILIO KENNEDY Mar 29, 2025 10:58
[2025-03-29 12:58] VITALS: BP 136/63; PULSE 50; RESP 17; TEMP 97.5; O2SAT 98
[2025-03-29 16:45] VITALS: BP 131/60; PULSE 55; RESP 17; TEMP 97.5; O2SAT 98
[2025-03-29 20:00] VITALS: O2SAT 98
[2025-03-29 20:59] VITALS: BP 138/50; PULSE 68; RESP 18; TEMP 98.6; O2SAT 96
[2025-03-30] VITALS (8 sets, daily range): BP systolic 121–145; BP diastolic 51–113; PULSE 51–70; RESP 17–48; TEMP 36.4; O2SAT 95–100
[2025-03-30] MEDS ORDERED: DOXY-286 PO (15:10)
--- NOTE | 2025-03-30 17:59 | DVHPN2 ---
Progress Note Date Seen: Mar 30, 2025 Medical Necessity Reason Pt with a Central, PICC or Fol: No Objective vital signs Vital Sign Date Time Temp Pulse Resp B/P (MAP) Pulse Ox O2 Delivery O2 Flow Rate FiO2 03/30/25 16:46 97.5 56 18 145/73 (97) 96 97.5 03/29/25 20:00 Room Air* 0 21 Total Intake and Output 03/29/25 03/29/25 03/30/25 15:00 23:00 07:00 Intake Total 100 ml 1380 ml 400 ml Output Total 400 ml Balance 100 ml 980 ml 400 ml medications Current Medications Medications Dose Ordered Sig/Alfonso Route Start Time Stop Time Status Last Admin Dose Admin Acetaminophen/ Hydrocodone Bitart 1 tab Q4HP PRN PO 03/26/25 16:30 03/30/25 14:13 1 TAB Temazepam 15 mg QHSP PRN PO 03/26/25 16:30 Ondansetron HCl 4 mg Q4HP PRN IV 03/26/25 16:30 Docusate Sodium 100 mg BIDPRN PRN PO 03/26/25 16:30 Zinc Sulfate 220 mg DAILY PO 03/27/25 10:00 03/30/25 09:46 220 MG Ascorbic Acid 500 mg BID PO 03/26/25 22:00 03/30/25 09:46 500 MG Multivitamins 1 tab DAILY PO 03/27/25 10:00 03/30/25 09:46 1 TAB Acetaminophen 650 mg Q6HP PRN PO 03/26/25 16:30 Morphine Sulfate 2 mg Q4HPRN PRN IV 03/26/25 16:30 03/30/25 00:20 2 MG Enoxaparin Sodium 40 mg DAILY SC 03/27/25 10:00 03/30/25 09:47 40 MG Piperacillin Sod/ Tazobactam Sod 100 ml @ 100 mls/hr Q8HR IV 03/26/25 16:30 03/30/25 14:13 100 MLS/HR Atorvastatin Calcium 20 mg HS PO 03/26/25 22:00 03/29/25 21:20 20 MG Furosemide 40 mg DAILY PO 03/27/25 10:00 03/30/25 09:47 40 MG Gabapentin 100 mg TID PO 03/26/25 22:00 03/26/25 23:14 100 MG Spironolactone 25 mg DAILY PO 03/27/25 10:00 03/30/25 09:46 25 MG Pantoprazole Sodium 40 mg DAILY PO 03/27/25 10:00 03/30/25 09:46 40 MG Diphenhydramine HCl 25 mg Q4HP PRN PO 03/29/25 11:00 Examination: HEENT:Normal, LUNGS:Normal, CVS:Normal, ABDOMEN:Normal, SKIN:Normal, NEURO:Normal laboratory and microbiology Laboratory Tests 03/28/25 10:50 Test 03/28/25 10:50 Range/Units Serum Glucose 94 74-106 mg/dL Microbiology Date/Time Source Procedure Growth Status 03/27/25 08:25 Nose MRSA Screen - Final Complete 03/26/25 12:10 Blood Blood Culture - Preliminary NO GROWTH AFTER 72 HOURS OF INCUBATION. Resulted Labs and/or images reviewed: Labs reviewed by me, Image(s) reviewed by me Problem List/Assessment/Plan Problem List/Assessment/Plan 1. Right lower extremity cellulitis Monitor, IV abx, wound care consult 2. Chronic lymphedema Monitor, cardiac diet 3. Wheelchair bound Monitor, DVT prophylaxis 4. Morbid obesity Monitor, PPI 5. vasomotor nephropathy monitor BMP Assessment/Plan Subjective: Patient is awake and alert. Objective: Patient states home health nurse never showed up to her house. Patient was recently discharged 1 week ago. Patient has worsening right lower extremity cellulitis. She was prescribed Cipro on last discharge. Patient has chronic lymphedema and she is wheelchair-bound.awaiting for disease case manager rn to arrange for HH. Plan: Start IV antibiotics. Wound care consult. patient is cleared for DC once home health has been arranged Plan discussed with: Patient My Orders My Orders Orders - BACILIO KENNEDY Procedure Category Date Status Time Discharge DISCHARGE 03/30/25 Transmitted 15:09 * Medical Technologist Blood Bank CONS 03/30/25 Transmitted Consult Date of Service: Mar 30, 2025 Billing Provider: AVNI MENDOZA MD Common Visit Codes: [id number] INP/OBS CARE (MOD) BACILIO KENNEDY Mar 30, 2025 17:59
--- NOTE | 2025-03-30 18:01 | DVHDS2 ---
Discharge Summary Date of Admission Mar 26, 2025 at 16:27 Date of Discharge: Mar 30, 2025 Admitting Diagnosis right lower extremity cellulitis Labs/Diagnostic Data: Laboratory Results Test 03/28/25 10:50 03/27/25 07:40 03/26/25 14:10 03/26/25 12:10 White Blood Count 4.5 10^3/uL (4.4-10.8) Red Blood Count 4.12 10^6/uL (4.0-5.20) Hemoglobin 12.8 g/dL (12.2-16.2) Hematocrit 39.0 % (36.0-46.0) Mean Corpuscular Volume 94.6 fL (80.0-100.0) Mean Corpuscular Hemoglobin 31.1 pg (28.0-32.0) Mean Corpuscular Hemoglobin Concent 32.9 g/dL (32.0-36.0) Red Cell Distribution Width 13.8 % (11.8-14.3) Platelet Count 187 10^3/uL (140-450) Mean Platelet Volume 11.3 fL (6.9-10.8) Neutrophils (%) (Auto) 52.9 % (37.0-80.0) Lymphocytes (%) (Auto) 31.9 % (10.0-50.0) Monocytes (%) (Auto) 12.8 % (0.0-12.0) Eosinophils (%) (Auto) 1.9 % (0.0-7.0) Basophils (%) (Auto) 0.5 % (0.0-2.0) Neutrophils # (Auto) 2.4 10 ^3/uL (1.6-8.6) Lymphocytes # (Auto) 1.4 10 ^3/uL (0.4-5.4) Monocytes # (Auto) 0.6 10 ^3/uL (0-1.3) Eosinophils # (Auto) 0.1 10 ^3/uL (0-0.8) Basophils # (Auto) 0 10 ^3/uL (0-0.2) Nucleated Red Blood Cells 0.1 % Sodium Level 142 mmol/L (136-145) Potassium Level 4.4 mmol/L (3.5-5.1) Chloride Level 107 mmol/L (98-107) Carbon Dioxide Level 28 mmol/L (20-31) Anion Gap 7 (5-15) Blood Urea Nitrogen 28 mg/dL (9-23) Creatinine 1.06 mg/dL (0.550-1.02) Glomerular Filtration Rate Calc 56 mL/min (>90) BUN/Creatinine Ratio 26.4 (10.0-20.0) Serum Glucose 94 mg/dL (74-106) Calcium Level 9.0 mg/dL (8.7-10.4) Total Bilirubin 0.7 mg/dL (0.2-1.0) Aspartate Amino Transferase (AST) 33 U/L (13-40) Alanine Aminotransferase (ALT) 28 U/L (7-40) Alkaline Phosphatase 88 U/L (46-116) Total Protein 6.6 g/dL (5.7-8.2) Albumin 4.0 g/dL (3.2-4.8) Urine Color Light-yellow (Yellow) Urine Clarity Clear (Clear) Urine pH 5.0 (5.0-9.0) Urine Specific [place] 1.019 (1.001-1.035) Urine Protein Negative (Negative) Urine Ketones Negative (Negative) Urine Blood Trace /uL (Negative) Urine Nitrite Negative (Negative) Urine Bilirubin Negative (Negative) Urine Urobilinogen Normal mg/dL (Negative) Urine Leukocyte Esterase Negative /uL (Negative) Urine RBC <1 /hpf (0 - 4) Urine Microscopic WBC 1 /HPF (0-5) Urine Squamous Epithelial Cells Few /hpf (<5) Urine Bacteria None seen /hpf (None Seen) Urine Glucose Normal mg/dL (Normal) Lactic Acid Level 1.6 mmol/L (0.4-2.0) Troponin I High Sensitivity 11 ng/L (</=34) B-Type Natriuretic Peptide 156.94 pg/mL (0-100) Other Laboratory Tests 03/28/25 10:50 Brief Hx & Hospital Course: Patient was admitted for right lower extremity cellulitis and was treated with intravenous antibiotics during the hospital stay. The patient has an underlying history of chronic lymphedema and requires daily wound care. It is noted that the patient was hospitalized approximately one week ago and was discharged with home health services, but reports that the home health nurse never initiated visits. Home health services were re-arranged during this admission to ensure continuity of care. The patient also developed vasomotor nephropathy during the hospital course and was managed with intravenous fluids, resulting in improvement of renal function back to baseline. At discharge, the patient was prescribed doxycycline 100 mg orally twice daily for 14 days and instructed to continue wound care at home. The patient is to follow up with the primary care provider within one week and return to the emergency department if symptoms worsen. Condition at Discharge: Fair Final Diagnosis/Problems List 1. Right lower extremity cellulitis Monitor, IV abx, wound care consult 2. Chronic lymphedema Monitor, cardiac diet 3. Wheelchair bound Monitor, DVT prophylaxis 4. Morbid obesity Monitor, PPI 5. vasomotor nephropathy Discharge Disposition: Home with Health Services Discharge Instruct/Medications Diet: Cardiac 2g Na,low cholest Activity: No Restrictions, As Tolerated Follow Up/Referral: PCP within 1 week Scheduled Atorvastatin Calcium (Atorvastatin Calcium), 20 MG PO HS Ciprofloxacin Hcl (Cipro), 1 TAB PO BID Doxycycline Hyclate (Doxycycline Hyclate), 1 TAB PO BID Furosemide (Furosemide), 1 TAB PO DAILY Gabapentin (Gabapentin), 100 MG PO TID, (Reported) Olmesartan Medoxomil (Olmesartan Medoxomil), 1 TAB PO DAILY, (Reported) Spironolactone (Spironolactone), 1 TAB PO DAILY Tramadol Hcl (Tramadol Hcl), 1-2 TAB PO BID PRN, (Reported) Discharge Statement: "Patient was advised to return to the ER or call 911 if any headaches, dizziness, shortness of breath, chest pain, abdominal pain, bleeding, fevers, or worsening of medical condition. Patient was counseled about treatment plan, medications, possible side effects, patientverbalized understanding. All questions were answered to the best of my ability. This discharge took greater then 30 minutes in planning, reviewing documentation, counseling the patient, and discussing with other team members." ASSESSMENT ASSESSMENT Assessment 1. Right lower extremity cellulitis Monitor, IV abx, wound care consult 2. Chronic lymphedema Monitor, cardiac diet 3. Wheelchair bound Monitor, DVT prophylaxis 4. Morbid obesity Monitor, PPI 5. vasomotor nephropathy BACILIO KENNEDY Mar 30, 2025 18:01
[2025-03-31 01:15] VITALS: BP 127/68; PULSE 53; RESP 16; TEMP 97.8; O2SAT 98
[2025-03-31 05:00] VITALS: BP 129/74; PULSE 50; RESP 16; TEMP 98.1; O2SAT 99
[2025-03-31 08:00] VITALS: O2SAT 100
[2025-03-31 08:37] VITALS: BP 155/65; PULSE 43; RESP 17; TEMP 97.9; O2SAT 99
[2025-03-31 13:00] VITALS: BP 143/65; PULSE 51; RESP 16; TEMP 97.9; O2SAT 91
== END 2025-03-31 14:28 | disposition home health service (06) | DRG 602 ==
LOC: EDBD 11:33 → ER 11:33 → OVERFLOW 16:27 → EAST 03-27 02:27
PROVIDERS: ADMIT Nurse Practitioner; ATTEND Nurse Practitioner
DX: L03.115 Cellulitis of right lower limb (principal); N17.0 Acute kidney failure with tubular necrosis; I50.9 Heart failure, unspecified; I11.0 Hypertensive heart disease with heart failure; E66.01 Morbid (severe) obesity due to excess calories; J45.909 Unspecified asthma, uncomplicated; I89.0 Lymphedema, not elsewhere classified; I25.10 Atherosclerotic heart disease of native coronary artery without angina pectoris; I48.91 Unspecified atrial fibrillation; Z88.2 Allergy status to sulfonamides; Z99.3 Dependence on wheelchair; Z82.49 Family history of ischemic heart disease and other diseases of the circulatory system; Z63.4 Disappearance and death of family member; Z88.8 Allergy status to other drugs, medicaments and biological substances; Z68.32 Body mass index [BMI] 32.0-32.9, adult
CPT/HCPCS: 36415; 71045; 80048; 80053; 81001; 83605; 83880; 84484; 85025; 87040; 87081; G0378; J2543

== ENCOUNTER 2025-04-11 08:02 | Inpatient (IN) | payer MEDICARE ==
[~2025-04-11] VITALS: Ht 167.6 cm; Wt 91.8 kg
[~2025-04-11 08:02] MED LIST changes: +DOXY-286 PO
--- NOTE | 2025-04-11 09:35 | ED.PDOC ---
History of Present Illness(SKN HPI Comments A 69 YEAR OLD FEMALE PRESENTS TO THE ED WITH COMPLAINT OF RIGHT LOWER LEG REDNESS AND SWELLING. PATIENT STATES SHE HAS BEEN EXPERIENCING RIGHT LOWER LEG REDNESS AND SWELLING FOR THE PAST 1.5 MONTHS AND HAS BEEN ADMITTED TO THIS HOSPITAL 2 TIMES FOR THIS ISSUE, BUT HAS NEVER IMPROVED. PATIENT REPORTS SHE WAS LAST ADMITTED TO THIS HOSPITAL FOR CELLULITIS OF HER RIGHT LOWER EXTREMITY ON 04/01/2025 WHERE LABS AND A CHEST X-RAY WAS DONE WHICH WERE NORMAL, AND SHE RECEIVED IV ANTIBIOTIC TREATMENT AND WAS PRESCRIBED AN ANTIBIOTIC WHEN DISCHARGED, BUT NEVER PICKED UP HER PRESCRIPTION. PATIENT STATES SHE IS STILL EXPERIENCING RIGHT LOWER LEG SWELLING AND REDNESS, PROMPTING HER TO COME BACK TO THE ED TODAY FOR EVALUATION. PATIENT DENIES FEVER, CHILLS, SHORTNESS OF BREATH, CHEST PAIN, ABDOMINAL PAIN, NAUSEA, VOMITING, HEADACHE, OR OTHER COMPLAINTS. NO OTHER SYMPTOMS OR MODIFYING FACTORS AT THIS TIME. PATIENT IS ALERT, ORIENTED X 4, AND HAS STEADY GAIT. Chief Complaint: Lower Extremity Time Seen by MD: 08:37 Primary Care Provider: Luis Felipe Avilez History of Present Illness: Nurses Notes, Medications, Allergies Allergies: Coded Allergies: Beef Allergy (Unverified Allergy, Mild, 03/27/25) Pork (Porcine) Protein (Unverified Allergy, Unknown, 03/27/25) PER PATIENT Sulfa Antibiotics (Verified Allergy, Unknown, 11/25/23) Amlodipine (Unverified Adverse Reaction, Unknown, 07/10/24) Peripheral edema Uncoded Allergies: Gauze (Allergy, Intermediate, 11/29/24) Per patient, causes skin to darken red. Informed to refuse gauze. Home Meds Active Scripts Doxycycline Hyclate (DOXYCYCLINE HYCLATE) 100 Mg Tab, 1 TAB PO BID for 14 Days, #28 TAB Prov:BACILIO KENNEDY SLIPCOVER CUTTER 03/30/25 Ciprofloxacin Hcl (Cipro) 500 Mg Tab, 1 TAB PO BID, #20 TAB 1 Refill Prov:SELAM HALLMAN [employer] STOCK CHECKER 03/18/25 Furosemide (Furosemide) 40 Mg Tab, 1 TAB PO DAILY, #90 TAB 1 Refill Prov:AWA MILTON MD 11/19/24 Atorvastatin Calcium (ATORVASTATIN CALCIUM) 20 Mg Tab, 20 MG PO HS, #60 TAB Prov:AWA MILTON MD 11/19/24 Spironolactone (Spironolactone) 25 Mg Tab, 1 TAB PO DAILY, #60 TAB Prov:AWA MILTON MD 11/19/24 Reported Medications Olmesartan Medoxomil (Olmesartan Medoxomil) 20 Mg Tab, 1 TAB PO DAILY 11/29/24 Gabapentin (Gabapentin) 100 Mg Cap, 100 MG PO TID 11/29/24 Tramadol Hcl (Tramadol Hcl) 50 Mg Tab, 1-2 TAB PO BID PRN for 30 Days, #120 08/01/24 Information Source: Patient Mode of Arrival: EMS Severity: Moderate Timing: Months Duration: Since onset Prehospital treatment: None Location: Leg (RIGHT LOWER LEG) Mechanism: Preceding Wound Occurence: Indoors Object: None Condition of Object: None Retained Foreign Body: No Wound Type: None Immunization Status of Animal: NA Tetanus: Unknown History of: None Associated Signs and Symptoms: Redness, Swelling, Pain Past Medical History PAST MEDICAL HISTORY: AFIB, Asthma, CAD, CHF, High Lipids, HTN Surgical History: Denies all surgeries ANALYSIS MANAGER History: No Pertinent ANALYSIS MANAGER History Family History Family History: Reviewed,noncontributory to illness Social History Smoker: Non-Smoker Alcohol: Denies ETOH Use Drugs: Denies Drug Use Lives In: Home Constitutional: denies: chills, diaphoresis, fatigue, fever, malaise, sweats, weakness, others EENTM: denies: blurred vision, double vision, ear bleeding, ear discharge, ear drainage, ear pain, ear ringing, eye pain, eye redness, hearing loss, mouth pain, mouth swelling, nasal discharge, nose bleeding, nose congestion, nose pain, photophobia, tearing, throat pain, throat swelling, voice changes, others Respiratory: denies: cough, hemoptysis, orthopnea, SOB at rest, shortness of breath, SOB with excertion, stridor, wheezing, others Cardiovascular: denies: chest pain, dizzy spells, diaphoresis, Dyspnea on exertion, edema, irregular heart beat, left arm pain, lightheadedness, palpitations, PND, syncope, others Gastrointestinal: denies: abdomen distended, abdominal pain, blood streaked bowels, constipated, diarrhea, dysphagia, difficulty swallowing, hematemesis, melena, nausea, poor appetite, poor fluid intake, rectal bleeding, rectal pain, vomiting, others Genitourinary: denies: abnormal vagina bleeding, burning, dyspareunia, dysuria, flank pain, frequency, hematuria, incontinence, pain, , vagina discharge, urgency, others Neurological: denies: dizziness, fainting, headache, left sided numbness, left sided weakness, numbness, paresthesia, pre-existing deficit, right sided numbness, right sided weakness, seizure, speech problems, tingling, tremors, weakness, others Musculoskeletal: denies: back pain, gout, joint pain, joint swelling, muscle pain, muscle stiffness, neck pain, others Integumetry: reports: lesions, wounds, others (RIGHT LOWER LEG REDNESS AND SWELLING); denies: bruises, change in color, change in hair/nails, dryness, laceration, lumps, rash Allergic/Immunocompromised: denies: Difficulty Healing, Frequent Infections, Hives, Itching, others Hematologic/Lymphatic: denies: anemia, blood clots, easy bleeding, easy bruising, swollen glands, others Endocrine: denies: excessive hunger, excessive sweating, excessive thirst, excessive urination, flushing, intolerance to cold, intolerance to heat, unexplained weight gain, unexplained weight loss, others Psychiatric: denies: anxiety, bipolar disorder, depression, hopeless, panic disorder, schizophrenia, sleepless, suicidal, others All Other Systems: Reviewed and Negative Physical Exam General Appearance: No Apparent Distress, Obese HEENT: Normal ENT Inspection, PERRL/EOMI, Pharynx Normal, TMs Normal Neck: Full Range of Motion, Non-Tender, Normal, Normal Inspection Respiratory: Chest Non-Tender, Lungs Clear, No Accessory Muscle Use, No Respiratory Distress, Normal Breath Sounds Cardiovascular: No Edema, No JVD, No Murmur, No Gallop, Normal Peripheral Pulses, Regular Rate/Rhythm Breast Exam: Deferred Gastrointestinal: No Organomegaly, Non Tender, No Pulsatile Mass, Normal Bowel Sounds, Soft Genitalia: Deferred Pelvic: Deferred Rectal: Deferred Extremities: Calf tenderness, Decreased range of motion, Inflammation, Leg edema, Normal capillary refill, Pedal edema (RIGHT ANKLE 2+), Tender (WITH ERYTHEMA AND SWELLING ON RIGHT ANTERIOR LOWER LEG, NO BONY TENDERNESS AND DEFORMITY, NO DVT SIGNS. ) Musculoskeletal : Apperance: Normal Neurologic: Alert, morgue attendant II-XII nml as Tested, No Motor Deficits, Normal Affect, Normal Mood, No Sensory Deficits Cerebellar Function: Normal Reflexes: Normal Skin: Dry, Normal Color, Warm, Wounds (MULTIPLE DRY OPEN WOUNDS WITH LOCALIZED REDNESS AND SWELLING ON RIGHT LOWER LEG. NO DRAINAGE NOTED CONSISTED WITH CELLULITIS.) Peripheral Pulses: 2+ carotid (R), 2+ carotid (L), 2+ dorsalis pedis (R), 2+ dorsalis pedis (L) Lymphatic: No Adenopathy Was a procedure done? Was a procedure done?: No Differential Diagnosis (INTG) Differential Diagnosis: N/A Differential Diagnosis: Abscess, Atopic dermatitis, Cellulitis, Contact Dermatitis, Erysipelas Differential Diagnosis: N/A Abscess: N/A Differential Diagnosis: N/A X-Ray, Labs, Meds, VS Vital Signs Date Time Temp Pulse Resp B/P (MAP) Pulse Ox O2 Delivery O2 Flow Rate FiO2 04/11/25 12:09 98.2 64 17 158/64 (95) 98 98.2 04/11/25 09:28 98.2 75 17 142/84 (103) 98 98.2 04/11/25 09:28 75 17 98 Room Air 04/11/25 08:05 98.2 75 16 142/84 98 98.2 Lab Test 04/11/25 09:35 Range/Units White Blood Count 5.3 4.4-10.8 10^3/uL Red Blood Count 4.30 4.0-5.20 10^6/uL Hemoglobin 13.4 12.2-16.2 g/dL Hematocrit 41.0 36.0-46.0 % Mean Corpuscular Volume 95.4 80.0-100.0 fL Mean Corpuscular Hemoglobin 31.1 28.0-32.0 pg Mean Corpuscular Hemoglobin Concent 32.6 32.0-36.0 g/dL Red Cell Distribution Width 13.7 11.8-14.3 % Platelet Count 169 140-450 10^3/uL Mean Platelet Volume 11.0 H 6.9-10.8 fL Neutrophils (%) (Auto) 60.6 37.0-80.0 % Lymphocytes (%) (Auto) 27.4 10.0-50.0 % Monocytes (%) (Auto) 9.8 0.0-12.0 % Eosinophils (%) (Auto) 2.0 0.0-7.0 % Basophils (%) (Auto) 0.2 0.0-2.0 % Neutrophils # (Auto) 3.2 1.6-8.6 10 ^3/uL Lymphocytes # (Auto) 1.5 0.4-5.4 10 ^3/uL Monocytes # (Auto) 0.5 0-1.3 10 ^3/uL Eosinophils # (Auto) 0.1 0-0.8 10 ^3/uL Basophils # (Auto) 0 0-0.2 10 ^3/uL Nucleated Red Blood Cells 0.2 % Sodium Level 145 136-145 mmol/L Potassium Level 4.4 3.5-5.1 mmol/L Chloride Level 109 H 98-107 mmol/L Carbon Dioxide Level 27 20-31 mmol/L Anion Gap 9 5-15 Blood Urea Nitrogen 16 9-23 mg/dL Creatinine 0.74 0.550-1.02 mg/dL Glomerular Filtration Rate Calc 86 >90 mL/min BUN/Creatinine Ratio 21.6 H 10.0-20.0 Serum Glucose 110 H 74-106 mg/dL Lactic Acid Level 1.4 0.4-2.0 mmol/L Calcium Level 9.8 8.7-10.4 mg/dL B-Type Natriuretic Peptide 97.87 0-100 pg/mL Current Medications Medications (Trade) Dose Ordered Sig/Alfonso Route Start Time Stop Time Status Last Admin Ceftriaxone Sodium 50 ml @ 100 mls/hr ONCE ONCE IV 04/11/25 11:45 04/11/25 12:14 DC 04/11/25 12:50 ORDERING PHYSICIAN: LORI FERNANDEZ PROCEDURE(s): RLDVT - RT Lower DVT REASON: RIGHT LOWER LEG REDNESS AND SWELLING ORDER NUMBER(s): [id number], ACCESSION NUMBER(s): [id number] CLINICAL HISTORY: RIGHT LOWER LEG REDNESS AND SWELLING TECHNIQUE: Color and duplex doppler imagine of the right lower extremity veins was performed. Vessel compression if possible was also performed. COMPARISON: US BILAT LOWER DVT on DOS: 02/21/25, US RT LOW EXT ART DUPLEX on DOS: 12/09/24, US RT LOWER DVT on DOS: 12/09/24, US BILAT LOW EXT ART DUPLEX on DOS: 11/15/24, US BILAT LOWER DVT on DOS: 11/15/24 FINDINGS: Right common femoral vein: Normal compressibility and flow. Right superficial femoral vein: Normal compressibility and flow. Right popliteal vein: Normal compressibility and flow. Proximal calf veins are normally compressible. IMPRESSION: NO SONOGRAPHIC EVIDENCE FOR DEEP VENOUS THROMBOSIS IN THE RIGHT LOWER EXTREMITY VEINS. ATED BY: SHAKEEL ALVARADO MD DICTATED DATE/TIME: 04/11/25 105 SIGNED BY: SHAKEEL ALVARADO MD SIGNED DATE/TIME: 04/11/251052 CC: X-Ray, Labs, Meds, VS Comment EXTERNAL MEDICAL RECORDS REVIEWED: [NONE] INDEPENDENT HISTORIANS: [NONE] SOCIAL DETERMINANTS OF HEALTH: [NONE] LABS ORDERED: CBC, BMP, BNP, LACTIC ACID W/REFLEX, BLOOD CULTURE, UA REVIEWED AND INTERPRETED RESULTS: NORMAL IMAGING ORDERED: CV VENOUS DOPPLER LOW EXT RT TREATMENTS ORDERED: ROCEPHIN 1 G IV, CLINDAMYCIN 600 MG IV PROCEDURES PERFORMED: NONE CRITICAL CARE TIME: NONE I HAVE DISCUSSED THE PATIENT WITH THE ATTENDING PHYSICIAN DR. CUELLO AND HE AGREES WITH THE PATIENT'S PLAN OF CARE. UPON MY PHYSICAL EXAMINATION, THE PATIENT HAD REDNESS, SWELLING, AND MULTIPLE DRY OPEN WOUNDS NOTED TO HER RIGHT LOWER EXTREMITY CONSISTENT WITH CELLULITIS. DUE TO THE PATIENT'S MEDICAL HISTORY, AND MULTIPLE VISITS AND ADMISSIONS TO THIS HOSPITAL, I HAVE DETERMINED THE PATIENT NEEDS TO BE ADMITTED FOR FURTHER TREATMENT OF HER CELLULITIS. THE ON-CALL HOSPITALIST WILL BE CONTACTED FOR ADMISSION IN HIS PATIENT. Time of 1ST Reevaluation: 12:00 Reevaluation 1ST: Unchanged Patient Education/Counseling: Diagnosis, Treatment Family Education/Counseling: Diagnosis, Treatment SEPSIS Sepsis Screen Date sepsis recognized/suspect: Apr 11, 2025 Time Sepsis recognized/suspect: 804 Recent Procedure: No On Antibiotic Therapy: No Respiratory Rate >20: No Heart Rate >90: No Temp<36 C (96.8 F) or >38.3 C: No SBP <90 or MAP <65 mmHG: No New Acute Mental Status Change: No Is the patient on CPAP, BIPAP,: No Physician Orders Urinalysis (04/11/25 09:17) Blood Culture (04/11/25 09:17) Rt Lower Dvt (04/11/25 09:17) Heplock Iv (04/11/25 ) Vital Signs Date Time Temp Pulse Resp B/P (MAP) Pulse Ox O2 Delivery O2 Flow Rate FiO2 04/11/25 12:09 98.2 64 17 158/64 (95) 98 98.2 04/11/25 09:28 98.2 75 17 142/84 (103) 98 98.2 04/11/25 09:28 75 17 98 Room Air 04/11/25 08:05 98.2 75 16 142/84 98 98.2 Laboratory Tests Test 04/11/25 09:35 Lactic Acid Level 1.4 mmol/L (0.4-2.0) White Blood Count 5.3 10^3/uL (4.4-10.8) Medications Medications Dose Ordered Sig/Alfonso Route Start Time Stop Time Status Last Admin Dose Admin Ceftriaxone Sodium 50 ml @ 100 mls/hr ONCE ONCE IV 04/11/25 11:45 04/11/25 12:14 DC 04/11/25 12:50 Departure 1 Departure Time of Disposition: 12:00 Impression: Primary Impression: Cellulitis of right lower extremity Disposition: ADMITTED INPATIENT Condition: Serious Critical Care Note Critical Care Time?: No Stability Stability form required: Yes Unstable for transfer: Requires medication, ED Physician Assesment, Possible rapid decline I personally scribed for LORI FERNANDEZ ([email or web address]) on 04/11/25 at 09:35. Electronically submitted by Delroy Mendez ([email or web address]). I personally scribed for LORI FERNANDEZ ([email or web address]) on 04/11/25 at 11:01. Electronically submitted by Delroy Mendez ([email or web address]). I personally scribed for LORI FERNANDEZ ([email or web address]) on 04/11/25 at 14:23. Electronically submitted by Delroy Mendez ([email or web address]). LORI FERNANDEZ Apr 11, 2025 09:35
[2025-04-11 10:21] LABS: Hematocrit 41.0 % (36.0-46.0); Hemoglobin 13.4 g/dL (12.2-16.2); Mean Corpuscular Hemoglobin 31.1 pg (28.0-32.0); Mean Corpuscular Volume 95.4 fL (80.0-100.0); Nucleated Red Blood Cells % 0.2 %
[2025-04-11 10:31] LABS: Potassium 4.4 mmol/L (3.5-5.1)
[2025-04-11 10:32] LABS: Anion Gap 9 (5-15); Carbon Dioxide 27 mmol/L (20-31); Chloride 109 mmol/L (98-107); Sodium 145 mmol/L (136-145)
[2025-04-11 10:33] LABS: Calcium 9.8 mg/dL (8.7-10.4)
[2025-04-11 10:37] LABS: BUN/Creatinine Ratio 21.6 (10.0-20.0); Blood Urea Nitrogen 16 mg/dL (9-23)
[2025-04-11 10:39] LABS: Glucose 110 mg/dL (74-106)
--- NOTE | 2025-04-11 10:55 | DVH ---
CLINICAL HISTORY: RIGHT LOWER LEG REDNESS AND SWELLING TECHNIQUE: Color and duplex doppler imagine of the right lower extremity veins was performed. Vessel compression if possible was also performed. COMPARISON: US BILAT LOWER DVT on DOS: 02/21/25, US RT LOW EXT ART DUPLEX on DOS: 12/09/24, US RT LOWER DVT on DOS: 12/09/24, US BILAT LOW EXT ART DUPLEX on DOS: 11/15/24, US BILAT LOWER DVT on DOS: 11/15/24 FINDINGS: Right common femoral vein: Normal compressibility and flow. Right superficial femoral vein: Normal compressibility and flow. Right popliteal vein: Normal compressibility and flow. Proximal calf veins are normally compressible. IMPRESSION: NO SONOGRAPHIC EVIDENCE FOR DEEP VENOUS THROMBOSIS IN THE RIGHT LOWER EXTREMITY VEINS.
[2025-04-11] MEDS ORDERED: VANCOMYCIN PER PHARMACY 0 MG IV SCH (12:30)
[2025-04-11] MEDS ORDERED: MORPHINE SULFATE INJ 2 MG/ml SYRG IV PRN (12:30)
[2025-04-11] MEDS ORDERED: NITROGLYCERIN 0.4 MG SL TAB SL PRN (12:30)
[2025-04-11] MEDS ORDERED: ACETAMINOPHEN 325 MG TAB PO PRN (12:30)
[2025-04-11] MEDS ORDERED: MORPHINE SULFATE 4 MG/ML SYR/VIAL IV PRN (13:00)
[2025-04-11] MEDS: GABAPENTIN 100 MG CAP PO SCH (14:53)
[2025-04-11] MEDS: CLINDAMYCIN 600MG IV 50 ML IV ONE (15:44)
--- NOTE | 2025-04-11 16:08 | DVHHP2 ---
History of Present Illness History of Present Illness Queenie Cheng is a wheelchair-bound patient with a history of morbid obesity, chronic lymphedema, and multiple hospitalizations for right lower extremity cellulitis presenting to the emergency room with right leg redness and swelling. The patient presents with right leg redness and swelling. She has a history of multiple admissions for right lower extremity cellulitis and was recently discharged 2 weeks ago with antibiotics for cellulitis with home health arranged. However, the patient did not potato picker her prescription. The patient has been getting admitted almost every month for the same issue of right lower extremity cellulitis. The patient is wheelchair-bound and has chronic lymphedema and morbid obesity. Review of Systems Constitutional: No: Fever, Chills, Sweats, Weakness, Malaise, Other Respiratory: No: Cough, Dry, Shortness of breath, SOB with excertion, Wheezing, Hemoptysis, Pleuritic Pain, Sputum, Wheezing, Other Cardiovascular: No: Chest Pain, Palpitations, Orthopnea, Paroxysmal Noc. Dyspnea, Edema, Lt Headedness, Other Skin: Other (redness RLE) Allergies: Coded Allergies: Beef Allergy (Unverified Allergy, Mild, 03/27/25) Pork (Porcine) Protein (Unverified Allergy, Unknown, 03/27/25) PER PATIENT Sulfa Antibiotics (Verified Allergy, Unknown, 11/25/23) Amlodipine (Unverified Adverse Reaction, Unknown, 07/10/24) Peripheral edema Uncoded Allergies: Gauze (Allergy, Intermediate, 11/29/24) Per patient, causes skin to darken red. Informed to refuse gauze. Medications Current Medications Medications Dose Ordered Sig/Alfonso Route Start Time Stop Time Status Last Admin Dose Admin Acetaminophen/ Hydrocodone Bitart 1 tab Q4HP PRN PO 04/11/25 12:30 Temazepam 15 mg QHSP PRN PO 04/11/25 12:30 Enoxaparin Sodium 40 mg DAILY SC 04/12/25 10:00 Acetaminophen 650 mg Q6HP PRN PO 04/11/25 12:30 Morphine Sulfate 2 mg Q4HPRN PRN IV 04/11/25 13:00 Nitroglycerin 0.4 mg Q5MINP PRN SL 04/11/25 12:30 Morphine Sulfate 2 mg Q30M PRN IV 04/11/25 12:30 Piperacillin Sod/ Tazobactam Sod 100 ml @ 25 mls/hr Q8HR IV 04/11/25 22:00 Vancomycin HCl 0 ml @ 0 mls/hr PER PHARMACY IV 04/11/25 12:30 Atorvastatin Calcium 20 mg HS PO 04/11/25 22:00 Furosemide 40 mg DAILY PO 04/12/25 10:00 Gabapentin 100 mg TID PO 04/11/25 14:00 04/11/25 14:53 100 MG Spironolactone 25 mg DAILY PO 04/12/25 10:00 Exam Vital Signs Vital Signs Date Time Temp Pulse Resp B/P (MAP) Pulse Ox O2 Delivery O2 Flow Rate FiO2 04/11/25 15:40 97.7 61 16 136/55 (82) 100 97.7 04/11/25 13:53 Room Air* 0 21 General Appearance: Alert, Oriented X3, Cooperative, No acute distress Respiratory: Clear to auscultation, Normal air movement Cardiovascular: Regular rate, Normal S2, No murmurs Abdominal: Normal bowel sounds, Soft, No tenderness, No hepatospenomegaly Extremities: No clubbing, No cyanosis Labs/Xrays Labs Test 04/11/25 09:35 Range/Units White Blood Count 5.3 4.4-10.8 10^3/uL Red Blood Count 4.30 4.0-5.20 10^6/uL Hemoglobin 13.4 12.2-16.2 g/dL Hematocrit 41.0 36.0-46.0 % Mean Corpuscular Volume 95.4 80.0-100.0 fL Mean Corpuscular Hemoglobin 31.1 28.0-32.0 pg Mean Corpuscular Hemoglobin Concent 32.6 32.0-36.0 g/dL Red Cell Distribution Width 13.7 11.8-14.3 % Platelet Count 169 140-450 10^3/uL Mean Platelet Volume 11.0 H 6.9-10.8 fL Neutrophils (%) (Auto) 60.6 37.0-80.0 % Lymphocytes (%) (Auto) 27.4 10.0-50.0 % Monocytes (%) (Auto) 9.8 0.0-12.0 % Eosinophils (%) (Auto) 2.0 0.0-7.0 % Basophils (%) (Auto) 0.2 0.0-2.0 % Neutrophils # (Auto) 3.2 1.6-8.6 10 ^3/uL Lymphocytes # (Auto) 1.5 0.4-5.4 10 ^3/uL Monocytes # (Auto) 0.5 0-1.3 10 ^3/uL Eosinophils # (Auto) 0.1 0-0.8 10 ^3/uL Basophils # (Auto) 0 0-0.2 10 ^3/uL Nucleated Red Blood Cells 0.2 % Sodium Level 145 136-145 mmol/L Potassium Level 4.4 3.5-5.1 mmol/L Chloride Level 109 H 98-107 mmol/L Carbon Dioxide Level 27 20-31 mmol/L Anion Gap 9 5-15 Blood Urea Nitrogen 16 9-23 mg/dL Creatinine 0.74 0.550-1.02 mg/dL Glomerular Filtration Rate Calc 86 >90 mL/min BUN/Creatinine Ratio 21.6 H 10.0-20.0 Serum Glucose 110 H 74-106 mg/dL Lactic Acid Level 1.4 0.4-2.0 mmol/L Calcium Level 9.8 8.7-10.4 mg/dL B-Type Natriuretic Peptide 97.87 0-100 pg/mL SEPSIS Sepsis Screen Date sepsis recognized/suspect: Apr 11, 2025 Time Sepsis recognized/suspect: 804 Recent Procedure: No On Antibiotic Therapy: No Respiratory Rate >20: No Heart Rate >90: No Temp<36 C (96.8 F) or >38.3 C: No SBP <90 or MAP <65 mmHG: No New Acute Mental Status Change: No Is the patient on CPAP, BIPAP,: No Physician Orders Urinalysis (04/11/25 09:17) Blood Culture (04/11/25 09:17) Rt Lower Dvt (04/11/25 09:17) Heplock Iv (04/11/25 ) Admit (04/11/25 12:22) Allergies (04/11/25 12:22) 2 Gm Sodium Diet (04/11/25 Lunch) Hydrocodone-Acet 5/325mg Tab ([place] (04/11/25 12:30) Temazepam (Restoril) (04/11/25 12:30) Enoxaparin Sodium (Lovenox) (04/12/25 10:00) Condition: Fair (04/11/25 12:22) Acetaminophen Tablet (Tylenol Tablet) (04/11/25 12:30) Nitroglycerin Sublingual (Ntrostat Subli (04/11/25 12:30) Morphine Sulfate Injection (04/11/25 12:30) Stat Ekg For Chest Pain (04/11/25 12:22) Notify Md Of Changes From Base (04/11/25 12:22) Panel Machine Tender For 24 Hours (04/11/25 12:22) Emergency Dysrhythmia Protocol (04/11/25 12:22) Rhythm Strips Once Every Shift (04/11/25 12:22) Oxygen By Nasal Cannula (04/11/25 12:22) Piperacillin-Tazob 3.375gm (Zosyn 3.375g (04/11/25 22:00) Vancomycin Per Pharmacy (04/11/25 12:30) * Wound Consult (04/11/25 ) Atorvastatin (Lipitor) (04/11/25 22:00) Furosemide Tablet (Lasix Tablet) (04/12/25 10:00) Gabapentin Capsule (Neurontin Capsule) (04/11/25 14:00) Spironolactone (Aldactone) (04/12/25 10:00) Morphine Sulfate Injection (04/11/25 13:00) Vancomycin,Random (04/12/25 04:00) Creatinine (04/12/25 04:00) Vital Signs Date Time Temp Pulse Resp B/P (MAP) Pulse Ox O2 Delivery O2 Flow Rate FiO2 04/11/25 15:40 97.7 61 16 136/55 (82) 100 97.7 04/11/25 13:53 Room Air* 0 21 04/11/25 12:09 98.2 64 17 158/64 (95) 98 98.2 04/11/25 09:28 98.2 75 17 142/84 (103) 98 98.2 04/11/25 09:28 75 17 98 Room Air Laboratory Tests Test 04/11/25 09:35 Lactic Acid Level 1.4 mmol/L (0.4-2.0) White Blood Count 5.3 10^3/uL (4.4-10.8) Medications Medications Dose Ordered Sig/Alfonso Route Start Time Stop Time Status Last Admin Dose Admin Ceftriaxone Sodium 50 ml @ 100 mls/hr ONCE ONCE IV 04/11/25 11:45 04/11/25 12:14 DC 04/11/25 12:50 100 MLS/HR Clindamycin Phosphate 50 ml @ 50 mls/hr ONCE ONCE IV 04/11/25 11:45 04/11/25 12:44 DC 04/11/25 15:44 50 MLS/HR Gabapentin 100 mg TID PO 04/11/25 14:00 04/11/25 14:53 100 MG Assessment/Plan Assessment/Plan Queenie Cheng presents to the emergency room with right leg erythema and swelling, with a history of recurrent right lower extremity cellulitis requiring frequent monthly admissions. Right Lower Extremity Cellulitis Assessment: Patient presents with recurrent right lower extremity cellulitis manifesting as erythema and swelling. This represents a pattern of frequent admissions approximately monthly for the same condition. Patient was recently discharged 2 weeks ago with antibiotics for cellulitis but did not potato picker the prescribed medication, contributing to treatment failure and recurrence. Plan: - Vancomycin per pharmacy - Admit to hospital for IV antibiotics and further treatment Chronic Lymphedema Assessment: Patient has chronic lymphedema which likely contributes to recurrent cellulitis episodes and impaired healing. Plan: - Continue monitoring Morbid Obesity Assessment: Patient has morbid obesity which increases risk for various complications including venous thromboembolism. Plan: - Continue monitoring - DVT prophylaxis Wheelchair-bound Status Assessment: Patient is wheelchair-bound, contributing to immobility and asso ciated risks. Plan: - Continue monitoring Plan discussed with: Patient My Orders Orders - BACILIO KENNEDY Procedure Category Date Status Time Admit ADMIT 04/11/25 Transmitted 12:22 Allergies REX 04/11/25 In Process 12:22 2 Gm Sodium Diet DIET 04/11/25 Transmitted Lunch Hydrocodone-Acet PHA 04/11/25 In Process 5/325mg Tab ([place] 12:30 Temazepam (Restoril) PHA 04/11/25 In Process 12:30 Enoxaparin Sodium PHA 04/12/25 In Process (Lovenox) 10:00 Condition: Fair REX 04/11/25 In Process 12:22 Acetaminophen Tablet PHA 04/11/25 In Process (Tylenol Tablet) 12:30 Nitroglycerin PHA 04/11/25 In Process Sublingual (Ntrostat 12:30 Morphine Sulfate PHA 04/11/25 In Process Injection 12:30 Stat Ekg For Chest [facility]EX 04/11/25 In Process Pain 12:22 Notify Of Changes [facility] 04/11/25 In Process From Base 12:22 Panel Machine Tender For [facility] 04/11/25 In Process 24 Hours 12:22 Emergency Dysrhythmia [facility] 04/11/25 In Process Protocol 12:22 Rhythm Strips Once [facility] 04/11/25 In Process Every Shift 12:22 Oxygen By Nasal RT 04/11/25 Transmitted Cannula 12:22 Piperacillin-Tazob [facility] 04/11/25 In Process 3.375gm (Zosyn 3.375g 22:00 Vancomycin Per [facility] 04/11/25 In Process Pharmacy 12:30 * Wound Consult CONS 04/11/25 Transmitted Atorvastatin (Lipitor) [facility] 04/11/25 In Process 22:00 Furosemide Tablet [facility] 04/12/25 In Process (Lasix Tablet) 10:00 Gabapentin Capsule [facility] 04/11/25 In Process (Neurontin Capsule) 14:00 Spironolactone PHA 04/12/25 In Process (Aldactone) 10:00 Morphine Sulfate PHA 04/11/25 In Process Injection 13:00 Vancomycin,Random LAB 04/12/25 Verified 04:00 Creatinine LAB 04/12/25 Verified 04:00 Date of Service: Apr 11, 2025 Billing Provider: AVNI MENDOZA MD Common Visit Codes: [id number] INP/OBS CARE (MOD) BACILIO KENNEDY [employer] ASSOCIATE Apr 11, 2025 16:08
[2025-04-11] MEDS: PIPERACILLIN-TAZOB 3.375GM 100 ML IV ONE (18:27)
[2025-04-11 21:00] VITALS: BP 116/48; PULSE 56; RESP 15; TEMP 97.6; O2SAT 96
[2025-04-11 21:14] VITALS: BP 116/47; PULSE 56; RESP 15; TEMP 97.6; O2SAT 97
[2025-04-11] MEDS: ATORVASTATIN 20 MG TAB PO SCH (22:30)
[2025-04-11] MEDS: VANCOMYCIN 1GM/250ML IV SCH (22:31)
[2025-04-11] MEDS: PIPERACILLIN-TAZOB 3.375GM 100 ML IV SCH (22:31)
[2025-04-11] MEDS: HYDROcodone-ACET 5/325MG TAB PO PRN (22:31)
[2025-04-12] VITALS (8 sets, daily range): BP systolic 108–147; BP diastolic 39–78; PULSE 48–101; RESP 16–19; TEMP 79.9–97.9; O2SAT 92–98
[2025-04-12] MEDS: SPIRONOLACTONE 25 MG TAB PO SCH (10:29)
[2025-04-12] MEDS: FUROSEMIDE 40 MG TAB PO SCH (10:29)
[2025-04-12] MEDS: ENOXAPARIN SOD 40 MG/0.4 ML SYRINGE SC SCH (10:30)
--- NOTE | 2025-04-12 10:31 | DVHPN2 ---
Progress Note Date Seen: Apr 12, 2025 Medical Necessity Reason Pt with a Central, PICC or Fol: No Subjective Review of Systems: CVS:Normal, RESPIRATORY:Normal, GI:Normal, NEURO:Normal Objective vital signs Vital Sign Date Time Temp Pulse Resp B/P (MAP) Pulse Ox O2 Delivery O2 Flow Rate FiO2 04/12/25 09:00 97.5 51 18 108/39 (62) 94 97.5 04/12/25 08:00 Room Air* 0 21 Total Intake and Output 04/11/25 04/11/25 04/12/25 15:00 23:00 07:00 Intake Total 150 ml 100 ml Balance 150 ml 100 ml medications Current Medications Medications Dose Ordered Sig/Alfonso Route Start Time Stop Time Status Last Admin Dose Admin Acetaminophen/ Hydrocodone Bitart 1 tab Q4HP PRN PO 04/11/25 12:30 04/12/25 03:09 1 TAB Temazepam 15 mg QHSP PRN PO 04/11/25 12:30 Enoxaparin Sodium 40 mg DAILY SC 04/12/25 10:00 Acetaminophen 650 mg Q6HP PRN PO 04/11/25 12:30 Morphine Sulfate 2 mg Q4HPRN PRN IV 04/11/25 13:00 Nitroglycerin 0.4 mg Q5MINP PRN SL 04/11/25 12:30 Morphine Sulfate 2 mg Q30M PRN IV 04/11/25 12:30 Piperacillin Sod/ Tazobactam Sod 100 ml @ 25 mls/hr Q8HR IV 04/11/25 22:00 04/12/25 05:06 25 MLS/HR Vancomycin HCl 0 ml @ 0 mls/hr PER PHARMACY IV 04/11/25 12:30 Atorvastatin Calcium 20 mg HS PO 04/11/25 22:00 04/11/25 22:30 20 MG Furosemide 40 mg DAILY PO 04/12/25 10:00 Gabapentin 100 mg TID PO 04/11/25 14:00 04/11/25 22:30 100 MG Spironolactone 25 mg DAILY PO 04/12/25 10:00 Examination: GENERAL:Normal, LUNGS:Normal, CVS:Normal, ABDOMEN:Normal, SKIN:Abnormal (bilateral lower ext erythema) laboratory and microbiology Laboratory Tests 04/12/25 05:59 04/11/25 09:35 Test 04/11/25 09:35 Range/Units Serum Glucose 110 H 74-106 mg/dL Microbiology Date/Time Source Procedure Growth Status 04/11/25 09:48 Blood Blood Culture - Preliminary NO GROWTH AFTER 24 HOURS OF INCUBATION. Resulted Labs and/or images reviewed: Labs reviewed by me, Image(s) reviewed by me Problem List/Assessment/Plan Problem List/Assessment/Plan The patient presents with right lower or bilateral lower extremity cellulitis in the setting of chronic lymphedema and morbid obesity. She is wheelchair-bound and has had multiple admissions for the same issue of lower extremity cellulitis. She is currently being treated with vancomycin and Zosyn antibiotics, which she is continuing from her previous treatment regimen. Right Lower Extremity Cellulitis Assessment: Patient presents with right lower extremity cellulitis in the setting of chronic lymphedema and morbid obesity. Given multiple previous admissions for the same issue, this represents a recurrent problem requiring extended antibiotic treatment course. Plan: - Continue vancomycin - Continue Zosyn - Extended antibiotic course given recurrent nature Chronic Lymphedema Assessment: Patient has established chronic lymphedema which likely predisposes to recurrent lower extremity cellulitis. Plan: - Continue monitoring - Continue wound care Morbid Obesity Assessment: Patient has morbid obesity contributing to overall clinical complexity and mobility limitations. Plan: - Continue DVT prophylaxis - Continue monitoring Wheelchair-bound Status Assessment: Patient is wheelchair-bound, contributing to functional limitations and requiring ongoing monitoring. Plan: - Continue monitoring Plan discussed with: Patient My Orders My Orders Orders - BACILIO KENNEDY Procedure Category Date Status Time Admit ADMIT 04/11/25 Transmitted 12:22 Allergies REX 04/11/25 In Process 12:22 2 Gm Sodium Diet DIET 04/11/25 Transmitted Lunch Hydrocodone-Acet PHA 04/11/25 In Process 5/325mg Tab ([place] 12:30 Temazepam (Restoril) PHA 04/11/25 In Process 12:30 Enoxaparin Sodium PHA 04/12/25 In Process (Lovenox) 10:00 Condition: Fair REX 04/11/25 In Process 12:22 Acetaminophen Tablet PHA 04/11/25 In Process (Tylenol Tablet) 12:30 Nitroglycerin PHA 04/11/25 In Process Sublingual (Ntrostat 12:30 Morphine Sulfate PHA 04/11/25 In Process Injection 12:30 Stat Ekg For Chest REX 04/11/25 In Process Pain 12:22 Notify Md Of Changes REX 04/11/25 In Process From Base 12:22 Compliance Examiner For [facility] 04/11/25 In Process 24 Hours 12:22 Emergency Dysrhythmia REX 04/11/25 In Process Protocol 12:22 Rhythm Strips Once [facility] 04/11/25 In Process Every Shift 12:22 Oxygen By Nasal RT 04/11/25 Transmitted Cannula 12:22 Piperacillin-Tazob PHA 04/11/25 In Process 3.375gm (Zosyn 3.375g 22:00 Vancomycin Per PHA 04/11/25 In Process Pharmacy 12:30 * Wound Consult CONS 04/11/25 Transmitted Atorvastatin (Lipitor) PHA 04/11/25 In Process 22:00 Furosemide Tablet PHA 04/12/25 In Process (Lasix Tablet) 10:00 Gabapentin Capsule PHA 04/11/25 In Process (Neurontin Capsule) 14:00 Spironolactone PHA 04/12/25 In Process (Aldactone) 10:00 Morphine Sulfate PHA 04/11/25 In Process Injection 13:00 Mrsa Screen RK 04/12/25 In Process 00:47 * Wound Consult CONS 04/12/25 Transmitted Date of Service: Apr 12, 2025 Billing Provider: AVNI MENDOZA MD Common Visit Codes: [id number] INP/OBS CARE (MOD) BACILIO KENNEDY FINANCIAL COMPLIANCE OFFICER Apr 12, 2025 10:31
--- NOTE | 2025-04-12 10:40 | DVHPN2 ---
Subjective states no pain now/but had severe pain in rt leg was concerned and came here/no fever or chills/no change in chronic venous stasis changes Changes from previous H/P or p: No Changes Cardiovascular: No Chest Pain, No Palpitations, No Orthopnea, No Paroxysmal Noc. Dyspnea, No Edema, No Lt Headedness, No Other Respiratory: No Cough, No Dry, No Shortness of breath, No SOB with excertion, No Wheezing, No Hemoptysis, No Pleuritic Pain, No Sputum, No Other Skin: Other (redness RLE) Objective Vitals Vital Signs Date Time Temp Pulse Resp B/P (MAP) Pulse Ox O2 Delivery O2 Flow Rate FiO2 04/12/25 10:29 108/39 04/12/25 09:00 97.5 51 18 94 97.5 04/12/25 08:00 Room Air* 0 21 Intake/Output Intake and Output 04/12/25 07:00 Intake Total 250 ml Balance 250 ml Intake Oral 0 ml IV Total 250 ml # Voids 1 General Appearance: Alert, Oriented X3, Cooperative, No acute distress HEENT: Atraumatic Lungs: Clear to auscultation Cardiovascular: Regular rate, Normal S1, Normal S2 Abdomen: Normal bowel sounds, Soft, No tenderness, No hepatospenomegaly Musculoskeletal: Normal sensory function, Normal motor function Neuro: Normal gait, Normal speech, Strength at 5/5 X4 ext, Normal tone, S ensation intact, Cranial nerves 3-12 NL Skin: Other (has chronic changes of stasis dermatitis in both legs- no ulcers or redmess/rash) Medications Current Medications Medications Dose Ordered Sig/Alfonso Route Start Time Stop Time Status Last Admin Dose Admin Temazepam 15 mg QHSP PRN PO 04/11/25 12:30 Enoxaparin Sodium 40 mg DAILY SC 04/12/25 10:00 04/12/25 10:30 40 MG Piperacillin Sod/ Tazobactam Sod 100 ml @ 25 mls/hr Q8HR IV 04/11/25 22:00 04/12/25 05:06 25 MLS/HR Atorvastatin Calcium 20 mg HS PO 04/11/25 22:00 04/11/25 22:30 20 MG Furosemide 40 mg DAILY PO 04/12/25 10:00 04/12/25 10:29 40 MG Gabapentin 100 mg TID PO 04/11/25 14:00 04/11/25 22:30 100 MG Spironolactone 25 mg DAILY PO 04/12/25 10:00 04/12/25 10:29 25 MG Acetaminophen/ Hydrocodone Bitart 1 tab Q6HP PRN PO 04/12/25 12:29 UNV Laboratory Results Laboratory Tests 04/11/25 09:35 04/12/25 05:59 Microbiology Microbiology Date/Time Source Procedure Growth Status 04/11/25 09:48 Blood Blood Culture - Preliminary NO GROWTH AFTER 24 HOURS OF INCUBATION. Resulted Labs and/or images reviewed: Labs reviewed by me Assessment/Plan Assessment/Plan leg pain- clinically no signs of cellulitis now//check us htn stable chronic diastolic chf stable hospital admission seeking behaviour- have evaluated this multiple times in past both as ip and op?? fear of illness vs situation at home/counselled- consult cyanide case hardener to help with this and reliable home visiting nurse to help with transition from hospital to home Plan discussed with: Patient, Other My Orders Orders - TYSON WEISS MD Procedure Category Date Status Time Hydrocodone-Acet PHA 04/12/25 Logged 5/325mg Tab ([place] 12:29 Date of Service: Apr 12, 2026 Billing Provider: TYSON WEISS MD Common Visit Codes: [id number] INP/OBS CARE(MOD) TYSON WEISS MD Apr 12, 2025 10:40
[2025-04-12] MEDS: HYDROcodone-ACET 5/325MG TAB PO PRN (22:09)
[2025-04-13] VITALS (7 sets, daily range): BP systolic 116–141; BP diastolic 46–75; PULSE 50–62; RESP 16–20; TEMP 97.6–97.9; O2SAT 97–98
--- NOTE | 2025-04-13 07:32 | DVHPN2 ---
Progress Note Medical Necessity Reason Pt with a Central, PICC or Fol: No Objective vital signs Vital Sign Date Time Temp Pulse Resp B/P (MAP) Pulse Ox O2 Delivery O2 Flow Rate FiO2 04/13/25 05:00 97.9 62 18 141/75 (97) 98 97.9 04/12/25 20:00 Room Air* 0 21 Total Intake and Output 04/12/25 04/12/25 04/13/25 15:00 23:00 07:00 Intake Total 50 ml 1050 ml 100 ml Balance 50 ml 1050 ml 100 ml medications Current Medications Medications Dose Ordered Sig/Alfonso Route Start Time Stop Time Status Last Admin Dose Admin Temazepam 15 mg QHSP PRN PO 04/11/25 12:30 Enoxaparin Sodium 40 mg DAILY SC 04/12/25 10:00 04/12/25 10:30 40 MG Piperacillin Sod/ Tazobactam Sod 100 ml @ 25 mls/hr Q8HR IV 04/11/25 22:00 04/13/25 06:07 25 MLS/HR Atorvastatin Calcium 20 mg HS PO 04/11/25 22:00 04/12/25 22:09 20 MG Furosemide 40 mg DAILY PO 04/12/25 10:00 04/12/25 10:29 40 MG Gabapentin 100 mg TID PO 04/11/25 14:00 04/13/25 06:07 100 MG Spironolactone 25 mg DAILY PO 04/12/25 10:00 04/12/25 10:29 25 MG Acetaminophen/ Hydrocodone Bitart 1 tab Q6HP PRN PO 04/12/25 12:29 04/13/25 06:16 1 TAB laboratory and microbiology Laboratory Tests 04/12/25 05:59 04/11/25 09:35 Test 04/11/25 09:35 Range/Units Serum Glucose 110 H 74-106 mg/dL Microbiology Date/Time Source Procedure Growth Status 04/12/25 04:25 Nose MRSA Screen - Final Complete 04/11/25 09:48 Blood Blood Culture - Preliminary NO GROWTH AFTER 24 HOURS OF INCUBATION. Resulted Problem List/Assessment/Plan Problem List/Assessment/Plan The patient presents with right lower or bilateral lower extremity cellulitis in the setting of chronic lymphedema and morbid obesity. She is wheelchair-bound and has had multiple admissions for the same issue of lower extremity cellulitis. She is currently being treated with vancomycin and Zosyn antibiotics, which she is continuing from her previous treatment regimen. Right Lower Extremity Cellulitis Assessment: Patient presents with right lower extremity cellulitis in the setting of chronic lymphedema and morbid obesity. Given multiple previous admissions for the same issue, this represents a recurrent problem requiring extended antibiotic treatment course. Plan: - Continue vancomycin - Continue Zosyn - Extended antibiotic course given recurrent nature Chronic Lymphedema Assessment: Patient has established chronic lymphedema which likely predisposes to recurrent lower extremity cellulitis. Plan: - Continue monitoring - Continue wound care Morbid Obesity Assessment: Patient has morbid obesity contributing to overall clinical complexity and mobility limitations. Plan: - Continue DVT prophylaxis - Continue monitoring Wheelchair-bound Status Assessment: Patient is wheelchair-bound, contributing to functional limitations and requiring ongoing monitoring. Plan: - Continue monitoring BACILIO KENNEDY [facility] Apr 13, 2025 07:32
--- NOTE | 2025-04-13 12:12 | DVHPN2 ---
Progress Note Date Seen: Apr 13, 2025 Medical Necessity Reason Pt with a Central, PICC or Fol: No Subjective Review of Systems: CVS:Normal, RESPIRATORY:Normal, :Normal Objective vital signs Vital Sign Date Time Temp Pulse Resp B/P (MAP) Pulse Ox O2 Delivery O2 Flow Rate FiO2 04/13/25 10:37 132/73 04/13/25 09:00 97.9 58 20 97 97.9 04/13/25 07:59 Room Air* 0 21 Total Intake and Output 04/12/25 04/12/25 04/13/25 15:00 23:00 07:00 Intake Total 50 ml 1050 ml 100 ml Balance 50 ml 1050 ml 100 ml medications Current Medications Medications Dose Ordered Sig/Alfonso Route Start Time Stop Time Status Last Admin Dose Admin Temazepam 15 mg QHSP PRN PO 04/11/25 12:30 Enoxaparin Sodium 40 mg DAILY SC 04/12/25 10:00 04/13/25 10:36 40 MG Piperacillin Sod/ Tazobactam Sod 100 ml @ 25 mls/hr Q8HR IV 04/11/25 22:00 04/13/25 06:07 25 MLS/HR Atorvastatin Calcium 20 mg HS PO 04/11/25 22:00 04/12/25 22:09 20 MG Furosemide 40 mg DAILY PO 04/12/25 10:00 04/13/25 10:37 40 MG Gabapentin 100 mg TID PO 04/11/25 14:00 04/13/25 06:07 100 MG Spironolactone 25 mg DAILY PO 04/12/25 10:00 04/13/25 10:00 25 MG Acetaminophen/ Hydrocodone Bitart 1 tab Q6HP PRN PO 04/12/25 12:29 04/13/25 06:16 1 TAB Examination: GENERAL:Normal, CVS:Normal, ABDOMEN:Normal, SKIN:Normal laboratory and microbiology Laboratory Tests 04/12/25 05:59 04/11/25 09:35 Test 04/11/25 09:35 Range/Units Serum Glucose 110 H 74-106 mg/dL Microbiology Date/Time Source Procedure Growth Status 04/12/25 04:25 Nose MRSA Screen - Final Complete 04/11/25 09:48 Blood Blood Culture - Preliminary NO GROWTH AFTER 48 HOURS OF INCUBATION. Resulted Labs and/or images reviewed: Labs reviewed by me, Image(s) reviewed by me Problem List/Assessment/Plan Problem List/Assessment/Plan The patient presents with right lower or bilateral lower extremity cellulitis in the setting of chronic lymphedema and morbid obesity. She is wheelchair-bound and has had multiple admissions for the same issue of lower extremity cellulitis. She is currently being treated with vancomycin and Zosyn antibiotics, which she is continuing from her previous treatment regimen. Right Lower Extremity Cellulitis Assessment: Patient presents with right lower extremity cellulitis in the setting of chronic lymphedema and morbid obesity. Given multiple previous admissions for the same issue, this represents a recurrent problem requiring extended antibiotic treatment course. Plan: - Continue vancomycin - Continue Zosyn - Extended antibiotic course given recurrent nature -arrange for wound care Chronic Lymphedema Assessment: Patient has established chronic lymphedema which likely predisposes to recurrent lower extremity cellulitis. Plan: - Continue monitoring - Continue wound care Morbid Obesity Assessment: Patient has morbid obesity contributing to overall clinical complexity and mobility limitations. Plan: - Continue DVT prophylaxis - Continue monitoring Wheelchair-bound Status Assessment: Patient is wheelchair-bound, contributing to functional limitations and requiring ongoing monitoring. Plan: - Continue monitoring Chronic diastolic heart failure -monitor Plan discussed with: Patient Date of Service: Apr 13, 2025 Billing Provider: AVNI MENDOZA MD Common Visit Codes: [id number] INP/OBS CARE (MOD) BACILIO KENNEDY BULK RECEIVER Apr 13, 2025 12:12
[2025-04-13] MEDS: TEMAZEPAM 15 MG CAP PO PRN (21:13)
[2025-04-14] VITALS (7 sets, daily range): BP systolic 106–126; BP diastolic 39–71; PULSE 54–70; RESP 17–18; TEMP 97.6–98.1; O2SAT 95–97
[2025-04-14] MEDS ORDERED: SPIR25TA8 PO (07:57)
[2025-04-14] MEDS ORDERED: CIPR-173 PO (07:58)
--- NOTE | 2025-04-14 07:59 | DVHDS2 ---
Discharge Summary Date of Admission Apr 11, 2025 at 12:22 Date of Discharge: Apr 14, 2025 Labs/Diagnostic Data: Laboratory Results Test 04/12/25 05:59 04/11/25 09:35 Creatinine 1.01 mg/dL (0.550-1.02) Glomerular Filtration Rate Calc 60 mL/min (>90) Random Vancomycin Level < 3.0 ug/mL (5-10) White Blood Count 5.3 10^3/uL (4.4-10.8) Red Blood Count 4.30 10^6/uL (4.0-5.20) Hemoglobin 13.4 g/dL (12.2-16.2) Hematocrit 41.0 % (36.0-46.0) Mean Corpuscular Volume 95.4 fL (80.0-100.0) Mean Corpuscular Hemoglobin 31.1 pg (28.0-32.0) Mean Corpuscular Hemoglobin Concent 32.6 g/dL (32.0-36.0) Red Cell Distribution Width 13.7 % (11.8-14.3) Platelet Count 169 10^3/uL (140-450) Mean Platelet Volume 11.0 fL (6.9-10.8) Neutrophils (%) (Auto) 60.6 % (37.0-80.0) Lymphocytes (%) (Auto) 27.4 % (10.0-50.0) Monocytes (%) (Auto) 9.8 % (0.0-12.0) Eosinophils (%) (Auto) 2.0 % (0.0-7.0) Basophils (%) (Auto) 0.2 % (0.0-2.0) Neutrophils # (Auto) 3.2 10 ^3/uL (1.6-8.6) Lymphocytes # (Auto) 1.5 10 ^3/uL (0.4-5.4) Monocytes # (Auto) 0.5 10 ^3/uL (0-1.3) Eosinophils # (Auto) 0.1 10 ^3/uL (0-0.8) Basophils # (Auto) 0 10 ^3/uL (0-0.2) Nucleated Red Blood Cells 0.2 % Sodium Level 145 mmol/L (136-145) Potassium Level 4.4 mmol/L (3.5-5.1) Chloride Level 109 mmol/L (98-107) Carbon Dioxide Level 27 mmol/L (20-31) Anion Gap 9 (5-15) Blood Urea Nitrogen 16 mg/dL (9-23) BUN/Creatinine Ratio 21.6 (10.0-20.0) Serum Glucose 110 mg/dL (74-106) Lactic Acid Level 1.4 mmol/L (0.4-2.0) Calcium Level 9.8 mg/dL (8.7-10.4) B-Type Natriuretic Peptide 97.87 pg/mL (0-100) Other Laboratory Tests 04/12/25 05:59 04/11/25 09:35 Brief Hx & Hospital Course: Queenie Cheng is a wheelchair-bound patient with a history of morbid obesity, chronic lymphedema, and multiple hospitalizations for right lower extremity cellulitis presenting to the emergency room with right leg redness and swelling. The patient presents with right leg redness and swelling. She has a history of multiple admissions for right lower extremity cellulitis and was recently discharged 2 weeks ago with antibiotics for cellulitis with home health arranged. 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 The patient has been getting admitted almost every month for the same issue of right lower extremity cellulitis. The patient is wheelchair-bound and has chronic lymphedema and morbid obesity. Patient was admitted on April 11, 2025, due to her home health nurse not being available to care for her chronic right lower extremity cellulitis and chronic right lower extremity lymphedema. Patient was started on IV antibiotics. Wound care was consulted. hr shared services consultant was consulted and home health was resumed. Patients condition improved and she was discharged back on oral antibiotics. She was instructed to follow up with her PCP in 1 week. Patient was also instructed to comply with antibiotics and wound care. The patient received proper medical treatment and medications. Vital signs, Imaging and Laboratory Work was monitored daily. All consults recommendations were followed as provided. There were no complaints or new complaints upon discharge, all questions and concerns were answered. Patient was advised to return to the ER or call 911 if any headaches, dizziness, shortness of breath, chest pain, bleeding, fevers, or worsening of medical condition. Patient/Family was counseled about treatment plan, medications, possible side effects, patient verbalized understanding. All questions were answered to the best of my ability. The patient symptoms improved and they are okay to be DC. Condition at Discharge: Stable Final Diagnosis/Problems List Chronic lymphedema Chronic cellulitis to lower extremity Morbid Obesity Wheelchair-bound Status Chronic diastolic heart failure Discharge Disposition: Home with Health Services Discharge Instruct/Medications Diet: Cardiac 2g Na,low cholest Activity: No Restrictions, As Tolerated Follow Up/Referral: pcp 1 week Scheduled Atorvastatin Calcium (Atorvastatin Calcium), 20 MG PO HS Ciprofloxacin Hcl (Cipro), 1 TAB PO BID Doxycycline Hyclate (Doxycycline Hyclate), 1 TAB PO BID Furosemide (Furosemide), 1 TAB PO DAILY Gabapentin (Gabapentin), 100 MG PO TID, (Reported) Olmesartan Medoxomil (Olmesartan Medoxomil), 1 TAB PO DAILY, (Reported) Spironolactone (Spironolactone), 1 TAB PO DAILY Tramadol Hcl (Tramadol Hcl), 1-2 TAB PO BID PRN, (Reported) Discharge Statement: "Patient was advised to return to the ER or call 911 if any headaches, dizziness, shortness of breath, chest pain, abdominal pain, bleeding, fevers, or worsening of medical condition. Patient was counseled about treatment plan, medications, possible side effects, patientverbalized understanding. All questions were answered to the best of my ability. This discharge took greater then 30 minutes in planning, reviewing documentation, counseling the patient, and discussing with other team members." ASSESSMENT ASSESSMENT Assessment Chronic lymphedema Chronic cellulitis to lower extremity SELAM HALLMAN NP Apr 14, 2025 07:59
== END 2025-04-14 18:25 | disposition home health service (06) | DRG 603 ==
LOC: ER 08:02 → EDUNIT# 08:02 → EDBD 08:02 → OVERFLOW 12:22 → CENTRAL 23:53
PROVIDERS: ADMIT Nurse Practitioner Family; ATTEND Nurse Practitioner Family
DX: L03.115 Cellulitis of right lower limb (principal); I50.32 Chronic diastolic (congestive) heart failure; I11.0 Hypertensive heart disease with heart failure; E66.01 Morbid (severe) obesity due to excess calories; J45.909 Unspecified asthma, uncomplicated; I89.0 Lymphedema, not elsewhere classified; I25.10 Atherosclerotic heart disease of native coronary artery without angina pectoris; I48.91 Unspecified atrial fibrillation; Z88.2 Allergy status to sulfonamides; Z91.014 Allergy to mammalian meats; Z79.2 Long term (current) use of antibiotics; Z99.3 Dependence on wheelchair; Z79.899 Other long term (current) drug therapy; Z68.32 Body mass index [BMI] 32.0-32.9, adult
CPT/HCPCS: 36415; 80048; 80202; 82565; 83605; 83880; 85025; 87040; 87081; 93971; G0378; J2543; J3490

== ENCOUNTER 2025-04-29 09:31 | Inpatient (IN) | payer MEDICARE ==
[~2025-04-29] VITALS: Ht 167.6 cm; Wt 77.3 kg
--- NOTE | 2025-04-29 10:31 | ED.PDOC ---
History of Present Illness HPI Comments 69-year-old female BIBA with prior medical history of AFib, asthma, CAD, CHF, high lipids, hypertension chief complaint of lower extremity. Patient reports on having had bilateral lower extremity swelling and redness and states on having the chronic issue since she was in her 20s. Patient states on being a dmitted to the ER at [facility] earlier this month and discharged with the antibiotics. Patient notes on finishing her course yesterday. Patient has not open wound to the right leg and is oozing small amount of blood at this time. Denies any other symptoms at this time. Denies chills, fever, N/V/D, SOB, CP. No other associated symptoms, modifiers, recent injuries or sick contacts present at this time. Chief Complaint: Lower Extremity Time Seen by MD: 10:30 Primary Care Provider: Luis Felipe Avilez Reviewed Notes: Nurses Notes, Plumbing Assembler Notes, Medications, Allergies Allergies: Coded Allergies: Beef Allergy (Unverified Allergy, Mild, 03/27/25) Pork (Porcine) Protein (Unverified Allergy, Unknown, 03/27/25) PER PATIENT Sulfa Antibiotics (Verified Allergy, Unknown, 11/25/23) Amlodipine (Unverified Adverse Reaction, Unknown, 07/10/24) Peripheral edema Uncoded Allergies: Gauze (Allergy, Intermediate, 11/29/24) Per patient, causes skin to darken red. Informed to refuse gauze. Home Meds Active Scripts Ciprofloxacin Hcl (Cipro) 500 Mg Tab, 1 TAB PO BID for 10 Days, #20 TAB 1 Refill Prov:SELAM HALLMAN NP 04/14/25 Spironolactone (Spironolactone) 25 Mg Tab, 1 TAB PO DAILY, #60 TAB Prov:SELAM HALLMAN NP 04/14/25 Doxycycline Hyclate (DOXYCYCLINE HYCLATE) 100 Mg Tab, 1 TAB PO BID for 14 Days, #28 TAB Prov:BACILIO KENNEDY [employer] 03/30/25 Furosemide (Furosemide) 40 Mg Tab, 1 TAB PO DAILY, #90 TAB 1 Refill Prov:AWA MILTON MD 11/19/24 Atorvastatin Calcium (ATORVASTATIN CALCIUM) 20 Mg Tab, 20 MG PO HS, #60 TAB Prov:AWA MILTON MD 11/19/24 Reported Medications Olmesartan Medoxomil (Olmesartan Medoxomil) 20 Mg Tab, 1 TAB PO DAILY 11/29/24 Gabapentin (Gabapentin) 100 Mg Cap, 100 MG PO TID 11/29/24 Tramadol Hcl (Tramadol Hcl) 50 Mg Tab, 1-2 TAB PO BID PRN for 30 Days, #120 08/01/24 Information Source: Patient, Emergency Med Personnel Mode of Arrival: EMS Severity: Moderate Timing: Came on: Gradually Duration: Since onset Prehospital treatment: None Past Medical History PAST MEDICAL HISTORY: AFIB, Asthma, CAD, CHF, High Lipids, HTN Surgical History: Denies all surgeries 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 History Family History Family History: Reviewed,noncontributory to illness Social History Smoker: Non-Smoker Alcohol: Denies ETOH Use Drugs: Denies Drug Use Lives In: Home Constitutional: denies: chills, diaphoresis, fatigue, fever, malaise, sweats, weakness, others EENTM: denies: blurred vision, double vision, ear bleeding, ear discharge, ear drainage, ear pain, ear ringing, eye pain, eye redness, hearing loss, mouth pain, mouth swelling, nasal discharge, nose bleeding, nose congestion, nose pain, photophobia, tearing, throat pain, throat swelling, voice changes, others Respiratory: denies: cough, hemoptysis, orthopnea, SOB at rest, shortness of breath, SOB with excertion, stridor, wheezing, others Cardiovascular: reports: edema (Bilateral lower); denies: chest pain, dizzy spells, diaphoresis, Dyspnea on exertion, irregular heart beat, left arm pain, lightheadedness, palpitations, PND, syncope, others Gastrointestinal: denies: abdomen distended, abdominal pain, blood streaked bowels, constipated, diarrhea, dysphagia, difficulty swallowing, hematemesis, melena, nausea, poor appetite, poor fluid intake, rectal bleeding, rectal pain, vomiting, others Genitourinary: denies: abnormal vagina bleeding, burning, dyspareunia, dysuria, flank pain, frequency, hematuria, incontinence, pain, , vagina discharge, urgency, others Neurological: denies: dizziness, fainting, headache, left sided numbness, left sided weakness, numbness, paresthesia, pre-existing deficit, right sided numbness, right sided weakness, seizure, speech problems, tingling, tremors, weakness, others Musculoskeletal: denies: back pain, gout, joint pain, joint swelling, muscle pain, muscle stiffness, neck pain, others Integumetry: denies: bruises, change in color, change in hair/nails, dryness, laceration, lesions, lumps, rash, wounds, others Allergic/Immunocompromised: denies: Difficulty Healing, Frequent Infections, Hives, Itching, others Hematologic/Lymphatic: denies: anemia, blood clots, easy bleeding, easy bruising, swollen glands, others Endocrine: denies: excessive hunger, excessive sweating, excessive thirst, excessive urination, flushing, intolerance to cold, intolerance to heat, unexplained weight gain, unexplained weight loss, others Psychiatric: denies: anxiety, bipolar disorder, depression, hopeless, panic disorder, schizophrenia, sleepless, suicidal, others All Other Systems: Reviewed and Negative Physical Exam General Appearance: Moderate Distress, Normal HEENT: Normal ENT Inspection, Pharynx Normal, TMs Normal Neck: Full Range of Motion, Non-Tender, Normal, Normal Inspection Respiratory: Chest Non-Tender, Lungs Clear, No Accessory Muscle Use, No Respiratory Distress, Normal Breath Sounds Cardiovascular: No Edema, No JVD, No Murmur, No Gallop, Normal Peripheral Pulses, Regular Rate/Rhythm Breast Exam: Deferred Gastrointestinal: No Organomegaly, Non Tender, No Pulsatile Mass, Normal Bowel Sounds, Soft Genitalia: Deferred Pelvic: Deferred Rectal: Deferred Extremities: No calf tenderness, Normal capillary refill, Normal inspection, Normal range of motion, Non-tender, No pedal edema, Swelling (Bilateral lower extremity) Musculoskeletal : Apperance: Normal Neurologic: Alert, yarn handler II-XII nml as Tested, No Motor Deficits, Normal Affect, Normal Mood, No Sensory Deficits Cerebellar Function: NOT DONE Reflexes: NOT DONE Skin: Dry, Normal Color, Warm, Wounds (Right lower extremity) Peripheral Pulses: 3+ Radial (R), 3+ Radial (L) Lymphatic: No Adenopathy Was a procedure done? Was a procedure done?: No Differential Dx Considerations may include: Cellulitis X-Ray, Labs, Meds, VS Vital Signs Date Time Temp Pulse Resp B/P (MAP) Pulse Ox O2 Delivery O2 Flow Rate FiO2 04/29/25 12:05 97.7 55 18 136/69 (91) 98 97.7 04/29/25 09:31 98.9 65 20 131/62 96 98.9 Lab Test 04/29/25 11:28 Range/Units White Blood Count 8.1 4.4-10.8 10^3/uL Red Blood Count 4.80 4.0-5.20 10^6/uL Hemoglobin 14.9 12.2-16.2 g/dL Hematocrit 44.9 36.0-46.0 % Mean Corpuscular Volume 93.5 80.0-100.0 fL Mean Corpuscular Hemoglobin 31.0 28.0-32.0 pg Mean Corpuscular Hemoglobin Concent 33.1 32.0-36.0 g/dL Red Cell Distribution Width 13.7 11.8-14.3 % Platelet Count 122 L 140-450 10^3/uL Mean Platelet Volume 11.0 H 6.9-10.8 fL Neutrophils (%) (Auto) 65.4 37.0-80.0 % Lymphocytes (%) (Auto) 25.5 10.0-50.0 % Monocytes (%) (Auto) 6.8 0.0-12.0 % Eosinophils (%) (Auto) 1.5 0.0-7.0 % Basophils (%) (Auto) 0.8 0.0-2.0 % Neutrophils # (Auto) 5.3 1.6-8.6 10 ^3/uL Lymphocytes # (Auto) 2.1 0.4-5.4 10 ^3/uL Monocytes # (Auto) 0.5 0-1.3 10 ^3/uL Eosinophils # (Auto) 0.1 0-0.8 10 ^3/uL Basophils # (Auto) 0.1 0-0.2 10 ^3/uL Nucleated Red Blood Cells 0.1 % Sodium Level 138 136-145 mmol/L Potassium Level 4.5 3.5-5.1 mmol/L Chloride Level 109 H 98-107 mmol/L Carbon Dioxide Level 20 20-31 mmol/L Anion Gap 9 5-15 Blood Urea Nitrogen 10 9-23 mg/dL Creatinine 0.72 0.550-1.02 mg/dL Glomerular Filtration Rate Calc 89 >90 mL/min BUN/Creatinine Ratio 13.9 10.0-20.0 Serum Glucose 82 74-106 mg/dL Calcium Level 9.6 8.7-10.4 mg/dL Patient alert. Vitals stable. Complaining of bilateral lower extremity swelling. Answering questions. WBC within normal limits. Hemoglobin within normal limits. On examination she does have wound in the right lower extremity. Was given Zosyn. Explained to the patient. Continue monitoring. Time of 1ST Reevaluation: 11:00 Reevaluation 1ST: Unchanged Patient Education/Counseling: Diagnosis, Treatment, Prognosis Family Education/Counseling: No Family Present SEPSIS Sepsis Screen Date sepsis recognized/suspect: Apr 29, 2025 Time Sepsis recognized/suspect: 930 Recent Procedure: No On Antibiotic Therapy: Yes Respiratory Rate >20: No Heart Rate >90: No Temp<36 C (96.8 F) or >38.3 C: No SBP <90 or MAP <65 mmHG: No New Acute Mental Status Change: No Is the patient on CPAP, BIPAP,: No Physician Orders Urinalysis (04/29/25 10:19) Piperacillin-Tazob 3.375gm (Zosyn 3.375g (04/29/25 12:45) Vital Signs Date Time Temp Pulse Resp B/P (MAP) Pulse Ox O2 Delivery O2 Flow Rate FiO2 04/29/25 12:05 97.7 55 18 136/69 (91) 98 97.7 04/29/25 09:31 98.9 65 20 131/62 96 98.9 Laboratory Tests Test 04/29/25 11:28 White Blood Count 8.1 10^3/uL (4.4-10.8) Departure 1 Departure Time of Disposition: 12:42 Impression: Primary Impression: Cellulitis of both lower extremities Disposition: ADMITTED INPATIENT Admit to: Med Surg Condition: Guarded Critical Care Note Critical Care Time?: No Stability Stability form required: No Heart Score Heart Score: Heart Score Response (Comments) Value History N/A 0 EKG N/A 0 Age N/A 0 Risk Factors N/A 0 Troponin N/A 0 Total 0 I personally scribed for SHAGGY DEVRIES MD ([email or web address]) on 04/29/25 at 10:31. Electronically submitted by Jozef Wolf ([email or web address]). SHAGGY DEVRIES MD Apr 29, 2025 10:31
[2025-04-29 11:58] LABS: Hematocrit 44.9 % (36.0-46.0); Hemoglobin 14.9 g/dL (12.2-16.2); Mean Corpuscular Hemoglobin 31.0 pg (28.0-32.0); Mean Corpuscular Volume 93.5 fL (80.0-100.0); Nucleated Red Blood Cells % 0.1 %
[2025-04-29 12:10] LABS: Potassium 4.5 mmol/L (3.5-5.1); Sodium 138 mmol/L (136-145)
[2025-04-29 12:12] LABS: Anion Gap 9 (5-15); Calcium 9.6 mg/dL (8.7-10.4)
[2025-04-29 12:14] LABS: Carbon Dioxide 20 mmol/L (20-31); Chloride 109 mmol/L (98-107)
[2025-04-29 12:17] LABS: BUN/Creatinine Ratio 13.9 (10.0-20.0); Blood Urea Nitrogen 10 mg/dL (9-23); Glucose 82 mg/dL (74-106)
[2025-04-29] MEDS: PIPERACILLIN-TAZOB 3.375GM 100 ML IV ONE (13:13)
[2025-04-29 13:24] LABS: Urine Protein, UAD Negative (Negative)
--- NOTE | 2025-04-29 14:40 | DVHHP2 ---
Admitting Diagnosis: BLE swelling History of Present Illness 69 yo female patient with hx of A-fib, asthma, CAD, CHF, HLD, HTN c/o BLE swelling and redness. Patient sts that she was admitted here earlier this month for the same reason and was discharged on antibiotics which she has completed yesterday. Patient reports having an open wound to her right leg. While in the emergency department the patient was evaluated by the provider, As per provider: Labs, vital signs, and imagining monitored. Patient will be admitted for further evaluation and treatment. I discussed admission with the patient/family and is in agreement to treatment plan. Patient Family History: Angina Grandmother Cardiovascular disease G8 MOTHER (GALLBLADDER STONES), , Age: 90, Onset:60 years & older (had cancer but mother from gallbladder per patient) family hx1, , Age: 95, Onset:60 years & older (heart attack) FH: CHF (congestive heart failure) G8 FATHER FHx: bladder cancer G8 MOTHER (GALLBLADDER STONES), , Age: 90, Onset:60 years & older Family member G8 FATHER, Onset:95 Allergies: Coded Allergies: Beef Allergy (Unverified Allergy, Mild, 03/27/25) Pork (Porcine) Protein (Unverified Allergy, Unknown, 03/27/25) PER PATIENT Sulfa Antibiotics (Verified Allergy, Unknown, 11/25/23) Amlodipine (Unverified Adverse Reaction, Unknown, 07/10/24) Peripheral edema Uncoded Allergies: Gauze (Allergy, Intermediate, 11/29/24) Per patient, causes skin to darken red. Informed to refuse gauze. Home Meds Active Scripts Ciprofloxacin Hcl (Cipro) 500 Mg Tab, 1 TAB PO BID for 10 Days, #20 TAB 1 Refill Prov:SELAM HALLMAN NP 04/14/25 Spironolactone (Spironolactone) 25 Mg Tab, 1 TAB PO DAILY, #60 TAB Prov:SELAM HALLMAN NP 04/14/25 Doxycycline Hyclate (DOXYCYCLINE HYCLATE) 100 Mg Tab, 1 TAB PO BID for 14 Days, #28 TAB Prov:BACILIO KENNEDY 03/30/25 Furosemide (Furosemide) 40 Mg Tab, 1 TAB PO DAILY, #90 TAB 1 Refill Prov:AWA MILTON MD 11/19/24 Atorvastatin Calcium (ATORVASTATIN CALCIUM) 20 Mg Tab, 20 MG PO HS, #60 TAB Prov:AWA MILTON MD 11/19/24 Reported Medications Olmesartan Medoxomil (Olmesartan Medoxomil) 20 Mg Tab, 1 TAB PO DAILY 11/29/24 Gabapentin (Gabapentin) 100 Mg Cap, 100 MG PO TID 11/29/24 Tramadol Hcl (Tramadol Hcl) 50 Mg Tab, 1-2 TAB PO BID PRN for 30 Days, #120 08/01/24 Current Medications Current Medications Medications (Trade) Dose Ordered Sig/Alfonso Route PRN Reason Start Time Stop Time Status Last Admin Acetaminophen/ Hydrocodone Bitart ([place] 5/325MG Tab) 1 tab Q4HP PRN PO MODERATE PAIN (4-6 PAIN SCALE) 04/29/25 14:45 Temazepam (Restoril) 15 mg QHSP PRN PO FOR INSOMNIA 04/29/25 14:45 Ondansetron HCl (Zofran) 4 mg Q4HP PRN IV NAUSEA / VOMITING 04/29/25 14:45 Docusate Sodium (Colace Capsule) 100 mg BIDPRN PRN PO FOR CONSTIPATION 04/29/25 14:45 Zinc Sulfate 220 mg DAILY PO 04/30/25 10:00 Nitroglycerin (Ntrostat Sublingual) 0.4 mg Q5MINP PRN SL FOR CHEST PAIN 04/29/25 14:45 Morphine Sulfate 2 mg Q30M PRN IV FOR CHEST PAIN 04/29/25 14:45 Piperacillin Sod/ Tazobactam Sod 100 ml @ 100 mls/hr Q8HR IV 04/29/25 14:45 04/29/25 16:08 Review of Systems Constitutional: denies chills, denies fever, denies malaise Eyes: denies eye pain, denies vision change ENT: denies ear pain, denies headache, denies nasal congestion, denies painful swallowing, denies voice change Cardiovascular: denies chest pain, denies edema, denies orthopnea, denies palpitations, denies paroxysmal nocturnal dyspnea Respiratory: denies cough, denies shortness of breath Gastrointestinal: denies constipation, denies diarrhea, denies nausea, denies vomiting Genitourinary: denies dysuria, denies frequent urination, denies urethral discharge Musculoskeletal: denies back pain, denies joint pain, denies muscle pain Skin: denies bruising, denies itching, denies rash Neurological: denies focal weakness, denies headache, denies sensory changes Psychiatric: denies anxiety, denies depression Endocrine: denies polydipsia, denies polyuria Hematologic/Lymphatic: denies easy bleeding, denies easy bruising, denies enlarged lymph nodes Allergic/Immunologic: denies allergy, denies hives Vital Signs Vital Signs Date Time Temp Pulse Resp B/P (MAP) Pulse Ox O2 Delivery O2 Flow Rate FiO2 04/29/25 18:12 75 18 98 Room Air* 0 21 04/29/25 18:12 97.6 139/70 (93) 97.6 Physical Exam General Appearance: alert, no distress HEENT: EOMI, PERRLA, normal external inspect of ears, no icterus, no nasal drainage Neck: no carotid bruit, no jugular venous distention (JVD), no lymphadenopathy Chest: normal thorax Respiratory: clear to auscultation, normal air movement Cardiovascular: regular rate and rhythm, no diastolic murmur, no jugular venous distention (JVD), no rub, no systolic murmur Abdominal: soft, no hepatomegaly, no mass, no splenomegaly, no tenderness Genitourinary: grossly normal external Musculoskeletal: no joint tenderness, no swelling Extremities: normal pulses, no calf tenderness, no clubbing, no cyanosis, no edema Skin: no bruising, no jaundice, no rash Neurological: alert, No focal deficit SEPSIS Sepsis Screen Date sepsis recognized/suspect: Apr 29, 2025 Time Sepsis recognized/suspect: 930 Recent Procedure: No On Antibiotic Therapy: Yes Respiratory Rate >20: No Heart Rate >90: No Temp<36 C (96.8 F) or >38.3 C: No SBP <90 or MAP <65 mmHG: No New Acute Mental Status Change: No Is the patient on CPAP, BIPAP,: No Physician Orders Admit (04/29/25 14:32) Code Status (04/29/25 14:32) 2 Gm Sodium Diet (04/29/25 Dinner) Hydrocodone-Acet 5/325mg Tab ([place] 5/32 (04/29/25 14:45) Temazepam (Restoril) (04/29/25 14:45) Ondansetron Hcl (Zofran) (04/29/25 14:45) Docusate Sodium Capsule (Colace Capsule) (04/29/25 14:45) Zinc Sulfate (04/30/25 10:00) Comprehensive Metabolic Panel (04/30/25 04:00) Nitroglycerin Sublingual (Ntrostat Subli (04/29/25 14:45) Morphine Sulfate Injection (04/29/25 14:45) Stat Ekg For Chest Pain (04/29/25 14:32) Notify Md Of Changes From Base (04/29/25 14:32) Chargeback Analyst For 24 Hours (04/29/25 14:32) Emergency Dysrhythmia Protocol (04/29/25 14:32) Rhythm Strips Once Every Shift (04/29/25 14:32) Oxygen By Nasal Cannula (04/29/25 14:32) Piperacillin-Tazob 3.375gm (Zosyn 3.375g (04/29/25 14:45) Mrsa Screen (04/29/25 18:35) Vital Signs Date Time Temp Pulse Resp B/P (MAP) Pulse Ox O2 Delivery O2 Flow Rate FiO2 04/29/25 18:12 75 18 98 Room Air* 0 21 04/29/25 18:12 97.6 55 18 139/70 (93) 97 97.6 04/29/25 17:46 58 18 131/31 (64) 98 04/29/25 17:46 58 18 98 Room Air* 0 21 04/29/25 17:46 58 16 131/31 (64) 100 04/29/25 15:59 97.8 50 19 131/50 (77) 100 97.8 04/29/25 13:22 98.6 54 20 122/56 (78) 100 98.6 04/29/25 12:05 97.7 55 18 136/69 (91) 98 97.7 04/29/25 09:31 98.9 65 20 131/62 96 98.9 Laboratory Tests Test 04/29/25 11:28 White Blood Count 8.1 10^3/uL (4.4-10.8) Medications Medications Dose Ordered Sig/Alfonso Route Start Time Stop Time Status Last Admin Dose Admin Piperacillin Sod/ Tazobactam Sod 100 ml @ 100 mls/hr ONCE ONCE IV 04/29/25 12:45 04/29/25 13:44 DC 04/29/25 13:13 Piperacillin Sod/ Tazobactam Sod 100 ml @ 100 mls/hr Q8HR IV 04/29/25 14:45 04/29/25 16:08 Results Labs Test 04/29/25 11:28 04/29/25 10:33 Range/Units White Blood Count 8.1 4.4-10.8 10^3/uL Red Blood Count 4.80 4.0-5.20 10^6/uL Hemoglobin 14.9 12.2-16.2 g/dL Hematocrit 44.9 36.0-46.0 % Mean Corpuscular Volume 93.5 80.0-100.0 fL Mean Corpuscular Hemoglobin 31.0 28.0-32.0 pg Mean Corpuscular Hemoglobin Concent 33.1 32.0-36.0 g/dL Red Cell Distribution Width 13.7 11.8-14.3 % Platelet Count 122 L 140-450 10^3/uL Mean Platelet Volume 11.0 H 6.9-10.8 fL Neutrophils (%) (Auto) 65.4 37.0-80.0 % Lymphocytes (%) (Auto) 25.5 10.0-50.0 % Monocytes (%) (Auto) 6.8 0.0-12.0 % Eosinophils (%) (Auto) 1.5 0.0-7.0 % Basophils (%) (Auto) 0.8 0.0-2.0 % Neutrophils # (Auto) 5.3 1.6-8.6 10 ^3/uL Lymphocytes # (Auto) 2.1 0.4-5.4 10 ^3/uL Monocytes # (Auto) 0.5 0-1.3 10 ^3/uL Eosinophils # (Auto) 0.1 0-0.8 10 ^3/uL Basophils # (Auto) 0.1 0-0.2 10 ^3/uL Nucleated Red Blood Cells 0.1 % Sodium Level 138 136-145 mmol/L Potassium Level 4.5 3.5-5.1 mmol/L Chloride Level 109 H 98-107 mmol/L Carbon Dioxide Level 20 20-31 mmol/L Anion Gap 9 5-15 Blood Urea Nitrogen 10 9-23 mg/dL Creatinine 0.72 0.550-1.02 mg/dL Glomerular Filtration Rate Calc 89 >90 mL/min BUN/Creatinine Ratio 13.9 10.0-20.0 Serum Glucose 82 74-106 mg/dL Calcium Level 9.6 8.7-10.4 mg/dL Urine Color Light-yellow Yellow Urine Clarity Clear Clear Urine pH 6.5 5.0-9.0 Urine Specific [place] 1.020 1.001-1.035 Urine Protein Negative Negative Urine Ketones Negative Negative Urine Blood Negative Negative /uL Urine Nitrite Negative Negative Urine Bilirubin Negative Negative Urine Urobilinogen Normal Negative mg/dL Urine Leukocyte Esterase Negative Negative /uL Urine RBC <1 0 - 4 /hpf Urine Microscopic WBC < 1 0-5 /HPF Urine Squamous Epithelial Cells Few <5 /hpf Urine Bacteria None seen None Seen /hpf Urine Glucose Normal Normal mg/dL Plan 1. Chronic right lower extremity lymphedema Monitor, PT eval, DVT prophylaxis 2. Recurrent cellulitis to RLE Monitor, IV abx 3. Obesity Monitor, PPI 4. HLD Monitor, restart Lipitor Plan discussed with: Patient, Other SELAM HALLMAN NP Apr 29, 2025 14:40
[2025-04-29] MEDS ORDERED: DOCUSATE SOD 100 MG CAP PO PRN (14:45)
[2025-04-29] MEDS ORDERED: ONDANSETRON HCL 4 MG/2 ML VIAL IV PRN (14:45)
[2025-04-29] MEDS ORDERED: MORPHINE SULFATE INJ 2 MG/ml SYRG IV PRN (14:45)
[2025-04-29] MEDS ORDERED: TEMAZEPAM 15 MG CAP PO PRN (14:45)
[2025-04-29] MEDS ORDERED: NITROGLYCERIN 0.4 MG SL TAB SL PRN (14:45)
[2025-04-29] MEDS: PIPERACILLIN-TAZOB 3.375GM 100 ML IV SCH (16:08)
[2025-04-29 17:46] VITALS: PULSE 58; RESP 18; O2SAT 98
[2025-04-29 18:12] VITALS: BP 139/70; PULSE 55; PULSE 75; RESP 18; TEMP 97.6; O2SAT 97; O2SAT 98
[2025-04-29 20:00] VITALS: PULSE 47; PULSE 58; RESP 18; O2SAT 100
[2025-04-29 21:00] VITALS: BP 141/57; PULSE 58; RESP 18; TEMP 97.5; O2SAT 100
[2025-04-29] MEDS: HYDROcodone-ACET 5/325MG TAB PO PRN (23:03)
[2025-04-30] VITALS (8 sets, daily range): BP systolic 112–133; BP diastolic 55–81; PULSE 49–65; RESP 17–18; TEMP 97.3–98; O2SAT 96–99
[2025-04-30] MEDS: HYDROmorphone HCL 2 MG/ML VL/or syr IV PRN (01:03)
[2025-04-30 06:21] LABS: Alanine Aminotransferase 22 U/L (7-40); Alkaline Phosphatase 69 U/L (46-116); Anion Gap 10 (5-15); BUN/Creatinine Ratio 20.3 (10.0-20.0); Blood Urea Nitrogen 16 mg/dL (9-23); Calcium 8.8 mg/dL (8.7-10.4); Carbon Dioxide 23 mmol/L (20-31); Glucose 77 mg/dL (74-106); Potassium 4.3 mmol/L (3.5-5.1); Sodium 142 mmol/L (136-145)
[2025-04-30 06:22] LABS: Total Protein 5.8 g/dL (5.7-8.2)
[2025-04-30 06:23] LABS: Albumin 3.5 g/dL (3.2-4.8); Bilirubin, Total 0.4 mg/dL (0.2-1.0); Chloride 109 mmol/L (98-107)
[2025-04-30] MEDS: ZINC SULFATE 220mg CAP or TAB PO SCH (10:43)
--- NOTE | 2025-04-30 13:34 | DVHPN2 ---
Progress Note Date Seen: Apr 30, 2025 Medical Necessity Reason Pt with a Central, PICC or Fol: No Subjective Review of Systems: CVS:Normal, RESPIRATORY:Normal, :Normal Objective vital signs Vital Sign Date Time Temp Pulse Resp B/P (MAP) Pulse Ox O2 Delivery O2 Flow Rate FiO2 04/30/25 12:59 53 16 142/52 04/30/25 12:57 97.9 97 97.9 04/29/25 20:00 Room Air* 0 21 Total Intake and Output 04/29/25 04/29/25 04/30/25 15:00 23:00 07:00 Intake Total 100 ml 350 ml Balance 100 ml 350 ml medications Current Medications Medications Dose Ordered Sig/Alfonso Route Start Time Stop Time Status Last Admin Dose Admin Acetaminophen/ Hydrocodone Bitart 1 tab Q4HP PRN PO 04/29/25 14:45 04/29/25 23:03 1 TAB Temazepam 15 mg QHSP PRN PO 04/29/25 14:45 Ondansetron HCl 4 mg Q4HP PRN IV 04/29/25 14:45 Docusate Sodium 100 mg BIDPRN PRN PO 04/29/25 14:45 Zinc Sulfate 220 mg DAILY PO 04/30/25 10:00 04/30/25 10:43 220 MG Nitroglycerin 0.4 mg Q5MINP PRN SL 04/29/25 14:45 Morphine Sulfate 2 mg Q30M PRN IV 04/29/25 14:45 Piperacillin Sod/ Tazobactam Sod 100 ml @ 100 mls/hr Q8HR IV 04/29/25 14:45 04/30/25 05:43 100 MLS/HR Hydromorphone HCl 0.4 mg Q4HPRN PRN IV 04/30/25 01:00 04/30/25 12:59 0.4 MG Examination: GENERAL:Normal, LUNGS:Normal, CVS:Normal, ABDOMEN:Normal, SKIN:Normal, NEURO:Normal, :Normal laboratory and microbiology Laboratory Tests 04/30/25 04:51 04/29/25 11:28 Test 04/30/25 04:51 Range/Units Serum Glucose 77 74-106 mg/dL Microbiology Date/Time Source Procedure Growth Status 04/29/25 21:50 Nose MRSA Screen - Final Complete Problem List/Assessment/Plan Problem List/Assessment/Plan Right lower extremity cellulitis Assessment: Patient presents with 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 The recurrent nature suggests possible underlying predisposing factors including chronic lymphedema and morbid obesity which may impair healing and increase infection risk. Plan: - Continue vancomycin - Continue Zosyn - Extended antibiotic course given recurrent nature - Continue wound care Chronic lymphedema Assessment: Patient has established chronic lymphedema which likely contributes to recurrent lower extremity infections and impaired wound healing. Plan: - Continue monitoring - Continue wound care Morbid obesity Assessment: Patient has morbid obesity which increases risk for complications including DVT and contributes to recurrent infections and impaired mobility. Plan: - Continue DVT prophylaxis - Continue monitoring Wheelchair-bound status Assessment: Patient is wheelchair-bound which may contribute to decreased mobility and increased risk for complications. Plan: - Continue monitoring Plan discussed with: Patient My Orders My Orders Orders - BACILIO KENNEDY Procedure Category Date Status Time * Wound Consult CONS 04/30/25 Transmitted Date of Service: Apr 30, 2025 Billing Provider: AVNI MENDOZA MD Common Visit Codes: [id number] INP/OBS CARE (MOD) BACILIO KENNEDY Apr 30, 2025 13:34
[2025-05-01] VITALS (9 sets, daily range): BP systolic 120–142; BP diastolic 38–83; PULSE 52–64; RESP 17–19; TEMP 97.5–97.8; O2SAT 96–98
[2025-05-01] MEDS: PIPERACILLIN-TAZOB 3.375GM 100 ML IV SCH (10:37)
--- NOTE | 2025-05-01 12:48 | DVHPN2 ---
Progress Note Date Seen: May 01, 2025 Medical Necessity Reason Pt with a Central, PICC or Fol: No Subjective Review of Systems: CVS:Normal, RESPIRATORY:Normal Objective vital signs Vital Sign Date Time Temp Pulse Resp B/P (MAP) Pulse Ox O2 Delivery O2 Flow Rate FiO2 05/01/25 10:38 52 16 142/76 05/01/25 08:10 97.5 98 97.5 04/30/25 20:00 Room Air* 0 21 Total Intake and Output 04/30/25 04/30/25 05/01/25 15:00 23:00 07:00 Intake Total 1200 ml 840 ml Balance 1200 ml 840 ml medications Current Medications Medications Dose Ordered Sig/Alfonso Route Start Time Stop Time Status Last Admin Dose Admin Acetaminophen/ Hydrocodone Bitart 1 tab Q4HP PRN PO 04/29/25 14:45 04/30/25 20:46 1 TAB Temazepam 15 mg QHSP PRN PO 04/29/25 14:45 Ondansetron HCl 4 mg Q4HP PRN IV 04/29/25 14:45 Docusate Sodium 100 mg BIDPRN PRN PO 04/29/25 14:45 Zinc Sulfate 220 mg DAILY PO 04/30/25 10:00 05/01/25 10:37 220 MG Nitroglycerin 0.4 mg Q5MINP PRN SL 04/29/25 14:45 Morphine Sulfate 2 mg Q30M PRN IV 04/29/25 14:45 Hydromorphone HCl 0.4 mg Q4HPRN PRN IV 04/30/25 01:00 05/01/25 10:38 0.4 MG Piperacillin Sod/ Tazobactam Sod 100 ml @ 100 mls/hr Q8HR@0200,1000,1800 IV 05/01/25 10:00 05/01/25 10:37 100 MLS/HR Examination: GENERAL:Normal, LUNGS:Normal, CVS:Normal, ABDOMEN:Normal, SKIN:Normal, NEURO:Normal laboratory and microbiology Laboratory Tests 04/30/25 04:51 04/29/25 11:28 Test 04/30/25 04:51 Range/Units Serum Glucose 77 74-106 mg/dL Microbiology Date/Time Source Procedure Growth Status 04/29/25 21:50 Nose MRSA Screen - Final Complete Labs and/or images reviewed: Labs reviewed by me, Image(s) reviewed by me Problem List/Assessment/Plan Problem List/Assessment/Plan Right lower extremity cellulitis Assessment: Patient presents with 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 The recurrent nature suggests possible underlying predisposing factors including chronic lymphedema and morbid obesity which may impair healing and increase infection risk. Plan: - Continue Zosyn - Extended antibiotic course given recurrent nature - Continue wound care -resume HH -start gabapentin 300 mg HS Chronic lymphedema Assessment: Patient has established chronic lymphedema which likely contributes to recurrent lower extremity infections and impaired wound healing. Plan: - Continue monitoring - Continue wound care Morbid obesity Assessment: Patient has morbid obesity which increases risk for complications including DVT and contributes to recurrent infections and impaired mobility. Plan: - Continue DVT prophylaxis - Continue monitoring Wheelchair-bound status Assessment: Patient is wheelchair-bound which may contribute to decreased mobility and increased risk for complications. Plan: - Continue monitoring Plan discussed with: Patient My Orders My Orders Orders - BACILIO KENNEDY Procedure Category Date Status Time * Wound Consult CONS 04/30/25 Transmitted Cleanse Wound With REX 04/30/25 In Process Wound Clean 11:18 * Business Analyst Intern CONS 05/01/25 Transmitted Consult Date of Service: May 01, 2025 Billing Provider: AVNI MENDOZA MD Common Visit Codes: [id number] INP/OBS CARE (MOD) BACILIO KENNEDY May 01, 2025 12:48
[2025-05-01] MEDS: GABAPENTIN 300 MG CAP PO SCH (22:00)
[2025-05-02 01:00] VITALS: BP 132/42; PULSE 57; RESP 18; TEMP 98.1; O2SAT 98
[2025-05-02 05:00] VITALS: BP 121/69; PULSE 52; RESP 18; TEMP 98; O2SAT 98
[2025-05-02 08:00] VITALS: PULSE 48; PULSE 55; RESP 18; O2SAT 96
[2025-05-02 08:15] VITALS: BP 136/76; PULSE 55; RESP 18; TEMP 97.7; O2SAT 96
[2025-05-02 12:20] VITALS: BP 129/66; PULSE 52; RESP 18; TEMP 97.7; O2SAT 98
[2025-05-02] MEDS ORDERED: DOXY100C79 PO (13:50)
--- NOTE | 2025-05-02 13:51 | DVHDS2 ---
Discharge Summary Date of Admission Apr 29, 2025 at 14:32 Date of Discharge: May 02, 2025 Labs/Diagnostic Data: Laboratory Results Test 04/30/25 04:51 04/29/25 11:28 04/29/25 10:33 Sodium Level 142 mmol/L (136-145) Potassium Level 4.3 mmol/L (3.5-5.1) Chloride Level 109 mmol/L (98-107) Carbon Dioxide Level 23 mmol/L (20-31) Anion Gap 10 (5-15) Blood Urea Nitrogen 16 mg/dL (9-23) Creatinine 0.79 mg/dL (0.550-1.02) Glomerular Filtration Rate Calc 80 mL/min (>90) BUN/Creatinine Ratio 20.3 (10.0-20.0) Serum Glucose 77 mg/dL (74-106) Calcium Level 8.8 mg/dL (8.7-10.4) Total Bilirubin 0.4 mg/dL (0.2-1.0) Aspartate Amino Transferase (AST) 27 U/L (13-40) Alanine Aminotransferase (ALT) 22 U/L (7-40) Alkaline Phosphatase 69 U/L (46-116) Total Protein 5.8 g/dL (5.7-8.2) Albumin 3.5 g/dL (3.2-4.8) White Blood Count 8.1 10^3/uL (4.4-10.8) Red Blood Count 4.80 10^6/uL (4.0-5.20) Hemoglobin 14.9 g/dL (12.2-16.2) Hematocrit 44.9 % (36.0-46.0) Mean Corpuscular Volume 93.5 fL (80.0-100.0) Mean Corpuscular Hemoglobin 31.0 pg (28.0-32.0) Mean Corpuscular Hemoglobin Concent 33.1 g/dL (32.0-36.0) Red Cell Distribution Width 13.7 % (11.8-14.3) Platelet Count 122 10^3/uL (140-450) Mean Platelet Volume 11.0 fL (6.9-10.8) Neutrophils (%) (Auto) 65.4 % (37.0-80.0) Lymphocytes (%) (Auto) 25.5 % (10.0-50.0) Monocytes (%) (Auto) 6.8 % (0.0-12.0) Eosinophils (%) (Auto) 1.5 % (0.0-7.0) Basophils (%) (Auto) 0.8 % (0.0-2.0) Neutrophils # (Auto) 5.3 10 ^3/uL (1.6-8.6) Lymphocytes # (Auto) 2.1 10 ^3/uL (0.4-5.4) Monocytes # (Auto) 0.5 10 ^3/uL (0-1.3) Eosinophils # (Auto) 0.1 10 ^3/uL (0-0.8) Basophils # (Auto) 0.1 10 ^3/uL (0-0.2) Nucleated Red Blood Cells 0.1 % Urine Color Light-yellow (Yellow) Urine Clarity Clear (Clear) Urine pH 6.5 (5.0-9.0) Urine Specific [place] 1.020 (1.001-1.035) Urine Protein Negative (Negative) Urine Ketones Negative (Negative) Urine Blood Negative /uL (Negative) Urine Nitrite Negative (Negative) Urine Bilirubin Negative (Negative) Urine Urobilinogen Normal mg/dL (Negative) Urine Leukocyte Esterase Negative /uL (Negative) Urine RBC <1 /hpf (0 - 4) Urine Microscopic WBC < 1 /HPF (0-5) Urine Squamous Epithelial Cells Few /hpf (<5) Urine Bacteria None seen /hpf (None Seen) Urine Glucose Normal mg/dL (Normal) Other Laboratory Tests 04/30/25 04:51 04/29/25 11:28 Brief Hx & Hospital Course: 69 yo female patient with hx of A-fib, asthma, CAD, CHF, HLD, HTN c/o BLE swelling and redness. Patient sts that she was admitted here earlier this month for the same reason and was discharged on antibiotics which she has completed yesterday. Patient reports having an open wound to her right leg. While in the emergency department the patient was evaluated by the provider, As per provider: Labs, vital signs, and imagining monitored. Patient was admitted for bilateral lower extremity cellulitis and edema. Worse on the right. Patient was started on antibiotics. Home health was resumed. Patient will discharge on oral doxycycline 1 tab twice daily for 14 days. She is to continue daily wound care things with her home health company. The patient received proper medical treatment and medications. Vital signs, Imaging and Laboratory Work was monitored daily. All consults recommendations were followed as provided. There were no complaints or new complaints upon discharge, all questions and concerns were answered. Patient was advised to return to the ER or call 911 if any headaches, dizziness, shortness of breath, chest pain, bleeding, fevers, or worsening of medical condition. Patient/Family was counseled about treatment plan, medications, possible side effects, patient verbalized understanding. All questions were answered to the best of my ability. The patient symptoms improved and they are okay to be DC. Condition at Discharge: Good Final Diagnosis/Problems List CHRONIC LYMPHEDEMA AND CELLULITIS RLE Right lower extremity cellulitis Chronic lymphedema Morbid obesity Wheelchair-bound status Discharge Disposition: Home with Health Services Discharge Instruct/Medications Diet: Cardiac 2g Na,low cholest Activity: No Restrictions, As Tolerated Follow Up/Referral: PCP 1 WEEK Medications: PRESCRIBED Scheduled Atorvastatin Calcium (Atorvastatin Calcium), 20 MG PO HS Ciprofloxacin Hcl (Cipro), 1 TAB PO BID Doxycycline (Monohydrate) (Doxycycline), 100 MG PO BID Doxycycline Hyclate (Doxycycline Hyclate), 1 TAB PO BID Furosemide (Furosemide), 1 TAB PO DAILY Gabapentin (Gabapentin), 100 MG PO TID, (Reported) Olmesartan Medoxomil (Olmesartan Medoxomil), 1 TAB PO DAILY, (Reported) Spironolactone (Spironolactone), 1 TAB PO DAILY Tramadol Hcl (Tramadol Hcl), 1-2 TAB PO BID PRN, (Reported) Discharge Statement: "Patient was advised to return to the ER or call 911 if any headaches, dizziness, shortness of breath, chest pain, abdominal pain, bleeding, fevers, or worsening of medical condition. Patient was counseled about treatment plan, medications, possible side effects, patientverbalized understanding. All questions were answered to the best of my ability. This discharge took greater then 30 minutes in planning, reviewing documentation, counseling the patient, and discussing with other team members." ASSESSMENT ASSESSMENT Assessment CHRONIC LYMPHEDEMA AND CELLULITIS RLE SELAM HALLMAN NP May 02, 2025 13:51
[2025-05-02 16:15] VITALS: BP 161/75; PULSE 52; RESP 17; TEMP 97.4; O2SAT 98
== END 2025-05-02 20:52 | disposition home or self-care (01) | DRG 603 ==
LOC: ER 09:31 → EDBD 09:31 → OVERFLOW 14:32 → TELE-WESTW 18:17
PROVIDERS: ADMIT Nurse Practitioner; ATTEND Nurse Practitioner
DX: L03.115 Cellulitis of right lower limb (principal); I11.0 Hypertensive heart disease with heart failure; E66.01 Morbid (severe) obesity due to excess calories; L03.116 Cellulitis of left lower limb; J45.909 Unspecified asthma, uncomplicated; Z68.1 Body mass index [BMI] 19.9 or less, adult; E78.5 Hyperlipidemia, unspecified; I89.0 Lymphedema, not elsewhere classified; I25.10 Atherosclerotic heart disease of native coronary artery without angina pectoris; I48.91 Unspecified atrial fibrillation; Z82.49 Family history of ischemic heart disease and other diseases of the circulatory system; Z99.3 Dependence on wheelchair; Z63.4 Disappearance and death of family member
CPT/HCPCS: 36415; 80048; 80053; 81001; 85025; 87081; 96365; G0378; J2543